=== PATIENT | female | born 1995 | race Caucasian/White ===

== ENCOUNTER 2020-01-05 17:08 | Emergency (ER) | payer OTHER, SELFPAY ==
--- NOTE | ~2020-01-05 | CT_ITS ---
EXAMINATION: CT abdomen pelvis w con DATE: 01/05/2020 18:29 INDICATION: Epigastric abdominal pain. TECHNIQUE: Computed tomography (CT) of the abdomen and pelvis was performed with 100 mL Omnipaque-350 intravenous contrast. Automated exposure control and iterative reconstruction technique were employe d. The dose-length product was 935.83 mGy-cm. COMPARISON: None FINDINGS: Lung bases are clear. Heart size is normal. No pericardial or pleural effusion. Small sliding-type hi atal hernia. Postoperative change of prior gastric bypass procedure with antecolic Sandi limb. Focal h epatic steatosis at the ligamentum teres. Gallbladder, spleen, pancreas, bilateral adrenal glands and kidneys are normal. Appendix is normal. No abnormal bowel wall thickening or obstruction. 1.7 cm per ipherally enhancing corpus luteum cyst at the left ovary. Bladder, retroverted uterus and right ovary are unremarkable. Minimal likely physiologic free fluid in the cul-de-sac. No pathologically enlarge d abdominal or pelvic lymphadenopathy. Mild thoracolumbar spondylosis. IMPRESSION: 1. No acute intra-abdominal/pelvic process. Reviewed, dictated and finalized at location A.
[2020-01-05 17:14] VITALS: BP 148/89; PULSE 74; RESP 18; TEMP 36.7; O2SAT 100
[2020-01-05 17:40] LABS: Basophils Absolute Auto 0.1 K/mm3 (0.0-0.1); Basophils Percent Auto 0.5 % (0.2-1.2); Eosinophils Absolute Auto 0.1 K/mm3 (0-0.3); Eosinophils Percent Auto 0.8 % (0-4.4); Hematocrit 33.9 % (37.0-47.0); Hemoglobin 10.8 g/dL (12.0-15.0); Immature Granulocyte Absolute 0.04 K/mm3 (0.00-0.031); Immature Granulocyte Percent A 0.4 % (0-0.5); Lymphocytes Absolute Auto 2.16 K/mm3 (0.9-3.2); Lymphocytes Percent Auto 19.3 % (18.3-44.2); Mean Corpuscular HGB Conc 31.9 g/dl (32-36); Mean Corpuscular Volume 81.5 fl (80-100); Mean Platelet Volume 9.9 fl (7.4-10.4); Monocytes Absolute Auto 0.9 K/mm3 (0.1-0.6); Monocytes Percent Auto 8.2 % (2.6-8.5); Neutrophils Absolute Auto 7.9 K/mm3 (1.3-6.7); Neutrophils Percent Auto 70.8 % (45.5-73.1); Platelet Count Result 306 k/mm3 (150-375); Red Blood Count 4.16 M/mm3 (4.2-5.4); Red Cell Distribution Width 15.6 % (11.5-14.5); White Blood Count 11.2 K/mm3 (4.5-10.0)
[2020-01-05] MEDS: ONDANSETRON INJ 4 MG/2 ML VIAL IV PUSH (17:40)
[2020-01-05] MEDS: SODIUM CHLORIDE 0.9% IV 1,000 ML 999 ML IV CONT (17:40)
[2020-01-05] MEDS: FAMOTIDINE 20 MG/2 ML VIAL IV PUSH (17:42)
[2020-01-05 17:44] LABS: Add Urine Microscopic? YES; Appearance Urine Clear (Clear); Bacteria Urine Trace /hpf; Bilirubin Urine Negative (Negative); Blood Urine Negative (Negative); Color Urine Yellow (Yellow); Glucose Urine UA Negative (Negative); Ketones Urine Negative (Negative); Leukocyte Esterase Ur Negative LEU/UL (Negative); Mucus Urine Moderate /lpf; Nitrate Urine Negative (Negative); Protein Urine Negative (Negative); RBC Urine 0-2 /hpf (0-2); Specific Grav Ur 1.027 (1.001-1.035); Squamous Epithelial Cell Urine Moderate /hpf (Few); WBC Urine 0-3 /hpf
[2020-01-05 17:52] LABS: Alanine Aminotransferase 12 U/L (4-35); Albumin Level 4.3 g/dL (3.5-5.1); Alkaline Phosphatase 112 U/L (38-126); Aspartate Amino Transferase 17 U/L (14-36); Bilirubin,Total 0.3 mg/dL (0.2-1.3); Blood Urea Nitrogen 7 mg/dL (7-17); Calcium 8.8 mg/dL (8.4-10.2); Carbon Dioxide 21 mmol/L (22-30); Chloride 109 mmol/L (98-107); Estimated CRCL calculation 131 ml/min; Estimated Glomerular Filt Rate > 60; Glucose 101 mg/dL (65-105); Lipase 78 U/L (23-300); Potassium 3.2 mmol/L (3.4-5.0); Sodium 139 mmol/L (137-145)
[2020-01-05 18:10] VITALS: TEMP 36.7
--- NOTE | 2020-01-05 18:17 | ED.ABDPAIN ---
HPI - Abdominal Pain General Chief Complaint: Abdominal Pain <BRITNI Briggs Last Filed: 01/05/20 19:32> Stated Complaint: My gallbladder <BRITNI Briggs Last Filed: 01/05/20 19:32> Time Seen by Provider: 01/05/20 17:13 <BRITNI Briggs Last Filed: 01/05/20 19:32> Source: patient <BRITNI Briggs Last Filed: 01/05/20 19:32> Mode of arrival: ambulatory <BRITNI Briggs Last Filed: 01/05/20 19:32> Limitations: no limitations <BRITNI Briggs Last Filed: 01/05/20 19:32> History of Present Illness HPI narrative: Patient is a 24-year-old female who presents to emergency department for evaluation of right upper quadrant flank abdominal pain that is been present for the last several days worse with eating denies any similar occurrence in the past has taken antacids with no improvement. Patient denies similar occurrence is noted presents per private vehicle denies sick contacts or URI symptoms patient notes today multiple episodes of emesis associated with the discomfort and pain <BRITNI Briggs Last Filed: 01/05/20 19:32> Related Data Home Medications: Home Medications Medication Instructions Recorded Confirmed aripiprazole 5 mg PO HS 01/05/20 fluoxetine 20 mg PO DAILY 01/05/20 levetiracetam [Keppra] 1,500 mg PO BID 01/05/20 oxcarbazepine 300 mg PO BID 01/05/20 topiramate 100 mg PO BID 01/05/20 trazodone 50 mg PO PRN PRN 01/05/20 <BRITNI Briggs Last Filed: 01/05/20 19:32> Allergies/Adverse Reactions: Allergies Allergy/AdvReac Type Severity Reaction Status Date / Time azithromycin Allergy Severe swelling Verified 01/05/20 17:18 codeine Allergy Severe swelling Verified 01/05/20 17:18 fexofenadine Allergy Intermediate hives Verified 01/05/20 17:18 adhesive tape Allergy Itching Verified 01/05/20 17:29 bupropion Allergy Hives Verified 01/05/20 17:29 clindamycin Allergy Hives Verified 01/05/20 17:29 erythromycin base Allergy Anaphylaxis Verified 01/05/20 17:29 hydrocodone Allergy Hives Verified 01/05/20 17:29 lithium Allergy Hives Verified 01/05/20 17:29 oxycodone [From Percocet] Allergy Hives Verified 01/05/20 17:29 <Billy Billy PA-C - Last Filed: 01/05/20 19:32> Review of Systems Review of Systems: All systems reviewed & are unremarkable except as noted in HPI and below <BRITNI Briggs Last Filed: 01/05/20 19:32> Course Course Emergency Course: Patient aware of case findings treatment plan and diagnosis <BRITNI Briggs Last Filed: 01/05/20 19:32> Vital Signs Vital signs: Vital Signs Temperature 36.7 C 01/05/20 17:14 Pulse Rate 74 01/05/20 17:14 Respiratory Rate 18 01/05/20 17:14 Blood Pressure 148/89 H 01/05/20 17:14 Pulse Oximetry 100 01/05/20 17:14 Temperature 36.6 C 01/05/20 19:39 Pulse Rate 67 01/05/20 19:39 Respiratory Rate 19 01/05/20 19:39 Blood Pressure 147/85 H 01/05/20 19:39 Pulse Oximetry 100 01/05/20 19:39 <Billy Billy PA-C - Last Filed: 01/05/20 19:32> Vital Signs Temperature 36.7 C 01/05/20 17:14 Pulse Rate 74 01/05/20 17:14 Respiratory Rate 18 01/05/20 17:14 Blood Pressure 148/89 H 01/05/20 17:14 Pulse Oximetry 100 01/05/20 17:14 Temperature 36.6 C 01/05/20 19:39 Pulse Rate 67 01/05/20 19:39 Respiratory Rate 19 01/05/20 19:39 Blood Pressure 147/85 H 01/05/20 19:39 Pulse Oximetry 100 01/05/20 19:39 <Fidelina Kellogg MD - Last Filed: 01/07/20 07:33> MDM - Abdominal Pain MDM Narrative Medical decision making narrative: Patient with abdominal pain of uncertain etiology will be discharged home put on low-fat diet given a PPI advised to follow with primary care and gastroenterology for further evaluation patient agrees with this plan is aware of the case findings treatment plan and diagnosis no high risk changes in the blood work o
[2020-01-05 18:43] VITALS: BP 149/92; PULSE 55; RESP 17; O2SAT 99
[2020-01-05 19:27] VITALS: BP 145/77; PULSE 60; RESP 19; TEMP 37.2; O2SAT 100
[2020-01-05 19:39] VITALS: BP 147/85; PULSE 67; RESP 19; TEMP 36.6; O2SAT 100
== END 2020-01-05 19:41 | disposition home or self-care (01) ==
PROVIDERS: Emergency Medicine Emergency Medical Services; Emergency Provider Emergency Medicine; PCP Family Medicine
DX: R10.11 Right upper quadrant pain (principal)
CPT/HCPCS: 36415; 74177; 80053; 81001; 81025; 83690; 85025; 96361; 96365; 96375; 99284; J0131; J2405; J7030; Q9967

== ENCOUNTER 2020-01-09 21:23 | Inpatient (IN) | payer OTHER, SELFPAY ==
--- NOTE | ~2020-01-09 | XR_ITS ---
XR abdomen NG/feed tube insert INDICATION: Evaluate NG tube position. TECHNIQUE: Limited KUB perform for evaluating NG tube . COMPARISON: 01/15/2020 FINDINGS: NG tube tip in the stomach. Visualized bowel gas pattern is unremarkable. IMPRESSION: 1: NG tube tip in the stomach. Reviewed, dictated and finalized at location A.
--- NOTE | ~2020-01-09 | US_ITS ---
EXAMINATION: US abdomen limited DATE: 01/10/2020 08:46 INDICATION: Right upper quadrant abdominal pain. TECHNIQUE: Multiple grayscale and Doppler ultrasound images of the abdomen were obtained. COMPARISON: CT abdomen and pelvis 01/05/2020 FINDINGS: The visualized portions of the head and body of the pancreas are normal. The liver is eder l without focal lesion. There is antegrade flow in main portal vein. The gallbladder is normal in siz e. No gallstones or gallbladder wall thickening. There was no sonographic De La Garza sign. The common elgin t is normal and measures 4 mm. IMPRESSION: 1. Normal right upper quadrant ultrasound. Reviewed, dictated and finalized at location A.
--- NOTE | ~2020-01-09 | CT_ITS ---
EXAMINATION: CT BRAIN W/O DATE: 01/13/2020 04:08 INDICATION: Acute prolonged seizure TECHNIQUE: Computed tomography (CT) of the head was performed without intravenous contrast. The dose- length product was 605.33 mGy-cm. COMPARISON: No prior studies for comparison. FINDINGS: Normal brain parenchymal volume for age. Normal olmos-white differentiation. No acute intrac ranial hemorrhage, infarction, mass or mass effect. No ventriculomegaly or midline shift. Midline sagittal images demonstrate a normal corpus callosum, c raniovertebral junction and sella turcica. Basilar cisterns are patent. Paranasal sinuses and mastoids are pneumatized. No depressed skull fractures. IMPRESSION: 1. No acute intracranial abnormality. Reviewed, dictated and finalized at location A.
--- NOTE | ~2020-01-09 | XR_ITS ---
EXAMINATION: XR chest 1V portable DATE: 01/13/2020 03:55 INDICATION: Acute seizure. Assess for aspiration. TECHNIQUE: frontal view of the chest was obtained. COMPARISON: None FINDINGS: Decreased right lung volume with mild elevation of the right hemidiaphragm. Patchy and linear opaciti es in the right lung. Left lung is clear. No pulmonary edema, pleural effusion or pneumothorax. The c ardiomediastinal silhouette is normal. Visualized bones and soft tissues are unremarkable. IMPRESSION: 1. Scattered linear and patchy opacities in the left lung with decreased left lung volume with differ ential including atelectasis and pneumonia, aspiration or some combination thereof. Reviewed, dictated and finalized at location A. IMPRESSION: 1. Scattered linear and patchy opacities in the left lung with decreased left l maritza volume with differential including atelectasis and pneumonia, aspiration or some combination thereof.
--- NOTE | ~2020-01-09 | XR_ITS ---
EXAMINATION: XR abdomen NG/feed tube insert DATE: 01/15/2020 08:43 INDICATION: Nasogastric tube placement TECHNIQUE: A supine view of the abdomen and lower chest was obtained for evaluation of feeding tube placement. COMPARISON: CT abdomen and pelvis dated 01/11/2020 FINDINGS: Endotracheal tube tip 1.9 cm above the ernesto. Nasogastric tube tip in the proximal stomach with prox imal side-port in the distal esophagus. Gas at the splenic flexure the colon. No dilated loops of bow el in the visualized abdomen to suggest obstruction. Mild left basilar opacities. Heart size is eder l. IMPRESSION: 1. Nasogastric tube tip in the proximal stomach. Consider advancement by 6-[address] the proximal side-port below the level of the gastroesophageal junction. Reviewed, dictated and finalized at location A. IMPRESSION: 1. Nasogastric tube tip in the proximal stomach. Consider advancement by 6-[address] the proximal side-port below the level of the gastroesophageal juncti on.
--- NOTE | ~2020-01-09 | NM_ITS ---
NM hepatobiliary w pharm DATE: 01/11/2020 09:53 INDICATION: Right upper quadrant abdominal pain, leukocytosis TECHNIQUE: Serial images of the abdomen after intravenous injection of 5.22 mCi 99m technetium [place] ec. 30 minute gallbladder ejection fraction calculation COMPARISON: 01/05/2020 CT abdomen pelvis 01/10/2020 limited abdominal ultrasound examination FINDINGS: There is normal hepatic extraction of the radiopharmaceutical. Kindly activity is noted in the gallbladder and common bile duct. The 30 minute gallbladder ejection fraction determinations afte r intravenous injection of 2.1 mcg of Kinevac is 65%. IMPRESSION: Normal examination 30 minute gallbladder ejection fraction of 65% Reviewed, dictated and finalized at Location A. Reviewed, dictated and finalized at location A.
--- NOTE | ~2020-01-09 | CT_ITS ---
EXAMINATION: CT abdomen pelvis w con EXAM DATE: 01/11/2020 21:05 INDICATION: Right upper quadrant pain. TECHNIQUE: Spiral CT of the abdomen and pelvis was performed following intravenous injection of 100 m L Omnipaque 350. Axial, coronal and sagittal images were reviewed. The dose-length product (DLP) fo r this examination was 1565.27 mGy-cm. The exposure was tailored according to patient size (auto mA exposure control), and iterative reconstruction (ASIR) was used as additional dose reduction techniqu e. Comparison is made to prior examination from 01/05/2020. FINDINGS: Interval development of severe periportal edema, pericholecystic fluid and small amount of perihepatic fluid. Less amount of edema adjacent to the pancreatic head and in the retroperitoneum. T he gallbladder is only mildly distended and there is no calcified cholelithiasis. There is no biliary or pancreatic duct dilation. No portal venous thrombosis or evidence of peptic ulcer disease. Give n the normal HIDA scan and right upper quadrant sonogram from yesterday, consider acute hepatitis, ch olangitis or pancreatitis. The liver, spleen, adrenal glands and pancreas are otherwise unremarkable. Portal and splenic veins are patent. Kidneys enhance symmetrically. There is no hydronephrosis. The uterus is unremarkable . Small to moderate amount of free pelvic fluid The bladder is unremarkable. There is no retroperit avila or pelvic lymphadenopathy. The appendix is normal. There are surgical changes from intact gastric bypass surgery. There is exp ected amount of colonic stool. No free intraperitoneal gas. The heart is normal in size. There a re no pericardial or pleural effusions. The lung bases are unremarkable. There are no osteoblastic or osteolytic lesions identified. IMPRESSION: Interval development of severe periportal edema, some pericholecystic and perihepatic flu id. Consider acute hepatitis, cholangitis or pancreatitis. Reviewed, dictated and finalized at location G. IMPRESSION: Interval development of severe periportal edema, some pericholecyst ic and perihepatic fluid. Consider acute hepatitis, cholangitis or pancreatitis .
--- NOTE | ~2020-01-09 | XR_ITS ---
EXAMINATION: XR chest ET placement DATE: 01/15/2020 06:19 INDICATION: Endotracheal tube placement TECHNIQUE: frontal view of the chest was obtained. COMPARISON: Chest radiograph dated 01/13/2020 FINDINGS: Endotracheal tube tip 3.3 cm above the ernesto. Nasogastric tube tip in the body of the stomach with p roximal side-port in the distal esophagus. Patchy and linear airspace opacities in the bilateral mid and lower lung zones which is new on the le ft. No pleural effusion or pneumothorax. The cardiomediastinal silhouette is normal. IMPRESSION: 1. Endotracheal tube in good position. Nasogastric tube tip in the stomach but could consider advance ment by [address] the proximal side-port below the gastroesophageal junction. 2. Airspace disease in the bilateral mid and lower lung zones, increased on the left, with differenti al including atelectasis, pneumonia, aspiration or some combination thereof. Reviewed, dictated and finalized at location A. IMPRESSION: 1. Endotracheal tube in good position. Nasogastric tube tip in the stomach but could consider advancement by [address] the proximal side-port below the ga stroesophageal junction. 2. Airspace disease in the bilateral mid and lower lung zones, increased on the left, with differential including atelectasis, pneumonia, aspiration or some c ombination thereof.
[2020-01-09 21:25] VITALS: BP 155/93; PULSE 89; RESP 16; TEMP 36.8; O2SAT 100
--- NOTE | 2020-01-09 21:36 | ED.ABDPAIN ---
HPI - Abdominal Pain General Chief Complaint: Abdominal Pain Stated Complaint: vomiting, spasms in face x 1 week Time Seen by Provider: 01/09/20 21:31 Source: RN notes reviewed History of Present Illness HPI narrative: Patient presents emergency department from home for abdominal pain. Patient states she is been having right upper quadrant dull pain for the past week. Patient was seen here and evaluated had a CT scan and lab work done at that time was referred to GI. Patient states she was seen by Dr. Browning for GI today and is scheduled for an outpatient ultrasound and endoscopy. Patient states his symptoms of been progressively worsened and thus we brought her to the emergency department tonight she states she is had recurrent nausea vomiting is been unable to keep down her seizure medication. She denies having any seizures she denies any fevers or chills chest pain shortness of breath diarrhea or any other symptoms. Patient states she is taking Zofran and Tylenol at home for the pain with minimal relief Related Data Home Medications Medication Instructions Recorded Confirmed aripiprazole 5 mg PO HS 01/05/20 fluoxetine 20 mg PO DAILY 01/05/20 levetiracetam [Keppra] 1,500 mg PO BID 01/05/20 oxcarbazepine 300 mg PO BID 01/05/20 topiramate 100 mg PO BID 01/05/20 trazodone 50 mg PO PRN PRN 01/05/20 Allergies Allergy/AdvReac Type Severity Reaction Status Date / Time azithromycin Allergy Severe swelling Verified 01/09/20 21:36 codeine Allergy Severe swelling Verified 01/09/20 21:36 fexofenadine Allergy Intermediate hives Verified 01/09/20 21:36 adhesive tape Allergy Itching Verified 01/09/20 21:36 bupropion Allergy Hives Verified 01/09/20 21:36 clindamycin Allergy Hives Verified 01/09/20 21:36 erythromycin base Allergy Anaphylaxis Verified 01/09/20 21:36 hydrocodone Allergy Hives Verified 01/09/20 21:36 lithium Allergy Hives Verified 01/09/20 21:36 oxycodone [From Percocet] Allergy Hives Verified 01/09/20 21:36 Review of Systems Review of Systems: Narrative: Gen.: Denies fevers or chills ENT: Denies congestion Respiratory: Denies shortness of breath or cough CV: Denies chest pain or palpitations GI: See HPI denies burning, urgency, frequency or hematuria Musculoskeletal: Denies back pain or muscle pain Neuro: Denies numbness, tingling, weakness or focal weakness Skin: Denies rash Except as documented, all other systems reviewed and negative [facility] Past Medical History Medical History (Updated 01/10/20 @ 00:58 by Hernesto Arroyo DO) Patient denies significant medical history Social History Social History (Updated 01/09/20 @ 21:37 by Hernesto Arroyo DO) Smoking status: Never smoker Gender identity (if verbalized by the patient): Female Exam Narrative: Exam Narrative: APPEARANCE: No acute distress, nontoxic, resting in bed HEENT: Normocephalic, atraumatic, OMM RESPIRATORY: No respiratory distress, clear to auscultation bilaterally with no rhonchi wheezing or rales CARDIOVASCULAR: RRR s murmur ABDOMINAL: Obese, soft, nondistended, tender palpation epigastric, right upper quadrant no tenderness left lower quadrant, left lower quadrant right lower quadrant no rebound or guarding MUSCULOSKELETAl: Moves all extremities. No clubbing, cyanosis or edema. NEURO: Awake and alert. Following commands, speech normal, no focal deficits SKIN:: Warm, dry. Normal Color PSYCHIATRIC: Normal affect/mood Course Course Emergency Course: Patient continues to have some abdominal discomfort and nausea will admit at this time. She states she is normally on Keppra 1500 mg twice daily has been unable to keep down for the last several days last attempt was this morning will give IV Discussed with Dr. Jimenez presentation work-up agrees with admission. Agrees plan for ultrasound in a.m. Discussed with patient and family results of workup and diagnosis. Discussed need for admission. Patient and family understand and a
[2020-01-09] MEDS: KETOROLAC 30 MG/ML VIAL (*BKC) IV PUSH (21:41)
[2020-01-09] MEDS: PROMETHAZINE HCL 25 MG/ML AMPUL 12.5 MG IV PUSH (21:41)
[2020-01-09] MEDS: SODIUM CHLORIDE 0.9% IV 1,000 ML 999 ML IV CONT (21:41)
[2020-01-09 21:46] LABS: Basophils Percent Auto 0.3 % (0.2-1.2); Eosinophils Absolute Auto 0.1 K/mm3 (0-0.3); Hematocrit 33.3 % (37.0-47.0); Hemoglobin 10.4 g/dL (12.0-15.0); Immature Granulocyte Absolute 0.06 K/mm3 (0.00-0.031); Immature Granulocyte Percent A 0.5 % (0-0.5); Lymphocytes Absolute Auto 2.14 K/mm3 (0.9-3.2); Lymphocytes Percent Auto 16.5 % (18.3-44.2); Mean Corpuscular HGB Conc 31.2 g/dl (32-36); Mean Corpuscular Hemoglobin 25.7 pg (26-34); Mean Corpuscular Volume 82.4 fl (80-100); Mean Platelet Volume 10.7 fl (7.4-10.4); Monocytes Absolute Auto 1.1 K/mm3 (0.1-0.6); Monocytes Percent Auto 8.8 % (2.6-8.5); Neutrophils Absolute Auto 9.4 K/mm3 (1.3-6.7); Neutrophils Percent Auto 72.9 % (45.5-73.1); Platelet Count Result 333 k/mm3 (150-375); Red Blood Count 4.04 M/mm3 (4.2-5.4); Red Cell Distribution Width 15.5 % (11.5-14.5)
[2020-01-09 21:49] LABS: Add Urine Microscopic? NO; Appearance Urine Clear (Clear); Bilirubin Urine Negative (Negative); Blood Urine Negative (Negative); Color Urine Straw (Yellow); Glucose Urine UA Negative (Negative); Ketones Urine Negative (Negative); Leukocyte Esterase Ur Negative LEU/UL (Negative); Nitrate Urine Negative (Negative); Protein Urine Negative (Negative); Specific Grav Ur 1.015 (1.001-1.035); Urobilinogen Urine Negative mg/dL (<2.0)
[2020-01-09 22:01] LABS: Alanine Aminotransferase 13 U/L (4-35); Albumin Level 4.1 g/dL (3.5-5.1); Alkaline Phosphatase 116 U/L (38-126); Aspartate Amino Transferase 19 U/L (14-36); Bilirubin,Total 0.4 mg/dL (0.2-1.3); Blood Urea Nitrogen 6 mg/dL (7-17); Calcium 8.3 mg/dL (8.4-10.2); Carbon Dioxide 24 mmol/L (22-30); Chloride 107 mmol/L (98-107); Estimated Glomerular Filt Rate > 60; Glucose 92 mg/dL (65-105); Lipase 87 U/L (23-300); Potassium 3.4 mmol/L (3.4-5.0); Sodium 139 mmol/L (137-145)
[2020-01-09] MEDS: MORPHINE SULFATE 4 MG/ML INJ IV PUSH (23:04)
[2020-01-09 23:09] VITALS: BP 129/71; PULSE 67; RESP 18; O2SAT 100
[2020-01-10] VITALS (10 sets, daily range): BP systolic 84–159; BP diastolic 52–92; PULSE 45–68; RESP 13–20; TEMP 36.6–36.8; O2SAT 98–100; BMI 42.5
[2020-01-10] MEDS: FAMOTIDINE 20 MG/2 ML VIAL IV PUSH (00:30)
[2020-01-10] MEDS: levETIRAcetam 1500MG/NACL100ML 1,500 MG/100 ML BAG 400 MG IVPB (00:45)
--- NOTE | 2020-01-10 01:21 | ADMGEN ---
This patient, Preethi Napier, was admitted to 3 [facility] Surg Room 319-01. Patient/family oriented to hospital policies and general routines including ID bracelet, bed and alarms, visiting hours, pain management, procedures, bathroom and other care routines, personal items, smoking policy, room service/diet, and visiting hours. Valuables list has been completed. Information on how to activate the Rapid Response Team has been discussed. Patient/Family are encouraged to report perceived risks to care and to ask questions if they do not understand what they are told or what they should do.
--- NOTE | 2020-01-10 01:57 | PM.IMHP ---
H&P: HPI History of Present Illness Chief complaint: Right upper quadrant pain w/ nausea and vomiting+ Narrative: This is a 24 year old morbidly obese female with known Seizure disorder who presented to the hospital with worsening epigastric and RUQ abdominal pain. Associated nausea, vomiting, and fever. She describes her abdominal pain as severe and radiating towards her back and her right upper shoulder+ The patient was evaluated for her abdominal pain a few days ago and had a CT abd/pelvis done at that time which was unremarkable. The patient was just seen by Dr. Browning yesterday and was going to have an outpatient endoscopy and ultrasound done. Tonight she decided to come to the hospital as her abdominal pain was worsening. She denies any chest pain, shortness of breath, coughing, dysuria, hematuria, focal neurological symptoms, diarrhea, lower extremity swelling or pain. Routine labs were obtained in the ER and were not much different from her most recent labs obtained a few days ago. The patient reports that she had a mild seizure yesterday. No other complaints today. Review of Systems Review of Systems: All systems reviewed & are unremarkable except as noted in HPI and below PMFSH Past Medical History Medical History (Updated 01/10/20 @ 06:15 by Vaughn Jimenez MD) Anxiety Depression Patient denies significant medical history Seizure disorder Surgical History Surgical History (Updated 01/10/20 @ 02:45 by Vaughn Jimenez MD) History of sleeve gastrectomy Family History Family History (Updated 01/10/20 @ 02:45 by Vaughn Jimenez MD) Other Diabetes mellitus Hypertension Social History Social History Smoking status: Never smoker Additional smoking assessment comments: patient vapes Alcohol intake: current Drinks per week: 1 Substance use: never Gender identity (if verbalized by the patient): Female Spiritual care concerns: No Meds Home Medications and Allergies Home Medications Medication Instructions Recorded Confirmed Type aripiprazole 5 mg PO HS 01/05/20 01/10/20 History fluoxetine 20 mg PO DAILY 01/05/20 01/10/20 History levetiracetam [Keppra] 1,500 mg PO BID 01/05/20 01/10/20 History omeprazole 40 mg PO DAILY #7 cap 01/05/20 01/10/20 Rx ondansetron 4 mg PO QID #7 tablet 01/05/20 01/10/20 Rx oxcarbazepine 300 mg PO BID 01/05/20 01/10/20 History topiramate 100 mg PO BID 01/05/20 01/10/20 History trazodone 50 mg PO PRN PRN 01/05/20 01/10/20 History Allergies Allergy/AdvReac Type Severity Reaction Status Date / Time azithromycin Allergy Severe swelling Verified 01/09/20 21:36 codeine Allergy Severe swelling Verified 01/09/20 21:36 fexofenadine Allergy Intermediate hives Verified 01/09/20 21:36 adhesive tape Allergy Itching Verified 01/09/20 21:36 bupropion Allergy Hives Verified 01/09/20 21:36 clindamycin Allergy Hives Verified 01/09/20 21:36 erythromycin base Allergy Anaphylaxis Verified 01/09/20 21:36 hydrocodone Allergy Hives Verified 01/09/20 21:36 lithium Allergy Hives Verified 01/09/20 21:36 oxycodone [From Percocet] Allergy Hives Verified 01/09/20 21:36 Vital Signs Vital Signs - 24 hr 01/09/20 21:25 01/09/20 23:09 01/10/20 01:04 Temperature 36.8 C 36.6 C Pulse Rate 89 67 59 L Respiratory Rate 16 18 16 Blood Pressure 155/93 H 129/71 135/68 Pulse Oximetry 100 100 100 01/10/20 01:05 01/10/20 01:25 Temperature 36.6 C 36.8 C Pulse Rate 65 61 Respiratory Rate 19 20 Blood Pressure 133/67 116/68 Pulse Oximetry 100 99 Exam Const: General: cooperative, alert, awake, in distress mild and uncomfortable Nutritional Appearance: obese morbidly obese Orientation/consciousness: patient oriented x3 HENMT: Head: normal to inspection General nose exam: Normal external nose present Face and sinus: normal facial exam Mouth: Yes Normal oral and palatal mucosa present and Yes oropharynx normal Eyes: Pupils:
[2020-01-10] MEDS: ONDANSETRON INJ 4 MG/2 ML VIAL IV PUSH ×3 (02:42→18:30)
[2020-01-10] MEDS: SODIUM CHLORIDE 0.9% IV 1,000 ML 125 ML IV CONT ×3 (02:42→21:14)
[2020-01-10] MEDS: MORPHINE SULFATE 4 MG/ML INJ IV PUSH ×2 (02:43→11:39)
[2020-01-10] MEDS: PANTOPRAZOLE SODIUM IV 40 MG VIAL IV PUSH (09:14)
[2020-01-10] MEDS: levETIRAcetam 1500MG/NACL100ML 1,500 MG/100 ML BAG 250 MG IVPB ×2 (09:14→21:15)
--- NOTE | 2020-01-10 14:19 | PC.NURSE ---
Patient to GI lab per stretcher.
--- NOTE | 2020-01-10 14:29 | WPDGICN ---
Assessment and Plan Assessment and plan (1) Intractable right upper quadrant abdominal pain: Code(s): R10.11 - Right upper quadrant pain Status: Acute Assessment and Plan: Etiology of her pain remains unclear. Right upper quadrant ultrasound last evening was unremarkable. Liver function tests are normal. Plan is to pursue further evaluation with EGD. Consider trial of proton pump inhibitor. Further recommendations after endoscopy. Consider HIDA scan if necessary. (2) Nausea & vomiting: Code(s): R11.2 - Nausea with vomiting, unspecified Status: Acute (3) Seizure disorder: Code(s): G40.909 - Epilepsy, unspecified, not intractable, without status epilepticus Status: Chronic (4) Obesity (BMI 30.0-34.9): Code(s): E66.9 - Obesity, unspecified Status: Acute GI Consult Note Consult date/time: 01/10/20 14:29 HPI: Preethi Napier is a 24 year old female seen in evaluation at the request of the emergency room and hospitalist service. Patient is morbidly obese and has underlying history of seizure disorder patient has had ongoing epigastric right upper quadrant discomfort. Associated with nausea vomiting. She was seen in my office yesterday. At that time it was planned to have an elective right upper quadrant ultrasound in EGD. However at home she has been unable to keep her medications down and had a small seizure. For this reason presented to the emergency room and was admitted for further evaluation. Review of Systems Review of Systems: All systems reviewed & are unremarkable except as noted in HPI and below PMFSH Past Medical History Medical History Anxiety Depression Patient denies significant medical history Seizure disorder Surgical History Surgical History History of sleeve gastrectomy Family History Family History Other Diabetes mellitus Hypertension Social History Social History Smoking status: Never smoker Additional smoking assessment comments: patient vapes Alcohol intake: current Drinks per week: 1 Substance use: never Gender identity (if verbalized by the patient): Female Spiritual care concerns: No Meds Home Medications and Allergies Home Medications Medication Instructions Recorded Confirmed Type aripiprazole 5 mg PO HS 01/05/20 01/10/20 History fluoxetine 20 mg PO DAILY 01/05/20 01/10/20 History levetiracetam [Keppra] 1,500 mg PO BID 01/05/20 01/10/20 History omeprazole 40 mg PO DAILY #7 cap 01/05/20 01/10/20 Rx ondansetron 4 mg PO QID #7 tablet 01/05/20 01/10/20 Rx oxcarbazepine 300 mg PO BID 01/05/20 01/10/20 History topiramate 100 mg PO BID 01/05/20 01/10/20 History trazodone 50 mg PO PRN PRN 01/05/20 01/10/20 History Allergies Allergy/AdvReac Type Severity Reaction Status Date / Time azithromycin Allergy Severe swelling Verified 01/09/20 21:36 codeine Allergy Severe swelling Verified 01/09/20 21:36 fexofenadine Allergy Intermediate hives Verified 01/09/20 21:36 adhesive tape Allergy Itching Verified 01/09/20 21:36 bupropion Allergy Hives Verified 01/09/20 21:36 clindamycin Allergy Hives Verified 01/09/20 21:36 erythromycin base Allergy Anaphylaxis Verified 01/09/20 21:36 hydrocodone Allergy Hives Verified 01/09/20 21:36 lithium Allergy Hives Verified 01/09/20 21:36 oxycodone [From Percocet] Allergy Hives Verified 01/09/20 21:36 Vital Signs Vital Signs - 24 hr 01/09/20 21:25 01/09/20 23:09 01/10/20 01:04 Temperature 36.8 C 36.6 C Pulse Rate 89 67 59 L Respiratory Rate 16 18 16 Blood Pressure 155/93 H 129/71 135/68 Pulse Oximetry 100 100 100 01/10/20 01:05 01/10/20 01:25 01/10/20 06:00 Temperature 36.6 C 36.8 C 36.6 C Pulse Rate 65 61 57 L Respiratory Rate 19 20 20 Blood Pr
[2020-01-10] MEDS: LACTATED RINGERS 1,000 ML 150 ML IV CONT (14:34)
--- NOTE | 2020-01-10 14:47 | WPDANESEPPF ---
Anes - Initial Pre Proc Eval Procedure: Operation Date: 01/10/20 15:00 Proposed Procedures p Esophagogastroduodenoscopy - Jorge Browning MD Date/Time: 01/10/20 14:47 Surgeon: Vaughn Jimenez MD Pre Op Diagnosis: Right upper quadrant pain w/ nausea and vomiting+ Patient Data Age: 24 Gender: F Height: 5 ft 5 in Weight: 115.9 kg Last Vital Signs Temp 36.8 C 01/10/20 14:36 Pulse 50 L 01/10/20 14:36 Resp 18 01/10/20 14:36 BP 129/67 01/10/20 14:36 Pulse Ox 98 01/10/20 14:36 Allergies Allergy/AdvReac Type Severity Reaction Status Date / Time azithromycin Allergy Severe swelling Verified 01/09/20 21:36 codeine Allergy Severe swelling Verified 01/09/20 21:36 fexofenadine Allergy Intermediate hives Verified 01/09/20 21:36 adhesive tape Allergy Itching Verified 01/09/20 21:36 bupropion Allergy Hives Verified 01/09/20 21:36 clindamycin Allergy Hives Verified 01/09/20 21:36 erythromycin base Allergy Anaphylaxis Verified 01/09/20 21:36 hydrocodone Allergy Hives Verified 01/09/20 21:36 lithium Allergy Hives Verified 01/09/20 21:36 oxycodone [From Percocet] Allergy Hives Verified 01/09/20 21:36 Home Medications Medication Instructions Recorded Confirmed Type aripiprazole 5 mg PO HS 01/05/20 01/10/20 History fluoxetine 20 mg PO DAILY 01/05/20 01/10/20 History levetiracetam [Keppra] 1,500 mg PO BID 01/05/20 01/10/20 History omeprazole 40 mg PO DAILY #7 cap 01/05/20 01/10/20 Rx ondansetron 4 mg PO QID #7 tablet 01/05/20 01/10/20 Rx oxcarbazepine 300 mg PO BID 01/05/20 01/10/20 History topiramate 100 mg PO BID 01/05/20 01/10/20 History trazodone 50 mg PO PRN PRN 01/05/20 01/10/20 History Laboratory Tests 01/09/20 01/09/20 01/09/20 21:41 21:41 21:41 WBC 13.0 K/mm3 H K/mm3 (4.5-10.0) RBC 4.04 M/mm3 L M/mm3 (4.2-5.4) Hgb 10.4 g/dL L g/dL (12.0-15.0) Hct 33.3 % L % (37.0-47.0) MCV 82.4 fl fl (80-100) MCH 25.7 pg L pg (26-34) MCHC 31.2 g/dl L g/dl (32-36) RDW 15.5 % H % (11.5-14.5) Plt Count 333 k/mm3 k/mm3 (150-375) MPV 10.7 fl H fl (7.4-10.4) Immature Gran % (Auto) 0.5 % % (0-0.5) Neut % (Auto) 72.9 % % (45.5-73.1) Lymph % (Auto) 16.5 % L % (18.3-44.2) [place] % (Auto) 8.8 % H % (2.6-8.5) Eos % (Auto) 1.0 % % (0-4.4) Baso % (Auto) 0.3 % % (0.2-1.2) Lymph # (Auto) 2.14 K/mm3 K/mm3 (0.9-3.2) [place] # (Auto) 1.1 K/mm3 H K/mm3 (0.1-0.6) Eos # (Auto) 0.1 K/mm3 K/mm3 (0-0.3) Baso # (Auto) 0.0 K/mm3 K/mm3 (0.0-0.1) Abs Immat Gran (auto) 0.06 K/mm3 H K/mm3 (0.00-0.031) Absolute Neuts (auto) 9.4 K/mm3 H K/mm3 (1.3-6.7) Absolute Nucleated RBC 0.0 K/mm3 K/mm3 (0.0-0.012) Nucleated RBC % 0.0 % % (0.0-0.2) Sodium 139 mmol/L mmol/L (137-145) Potassium 3.4 mmol/L mmol/L (3.4-5.0) Chloride 107 mmol/L mmol/L (98-107) Carbon Dioxide 24 mmol/L mmol/L (22-30) BUN 6 mg/dL L mg/dL (7-17) Creatinine 0.70 mg/dL mg/dL (0.7-1.0) Estim Creat Clear Calc Not Reportable Estimated GFR > 60 (59 - ) Glucose 92 mg/dL mg/dL (65-105) Calcium 8.3 mg/dL L mg/dL (8.4-10.2) Total Bilirubin 0.4 mg/dL mg/dL (0.2-1.3) AST 19 U/L U/L (14-36) ALT 13 U/L U/L (4-35) Alkaline Phosphatase 116 U/L U/L (38-126) Total Protein 7.0 g/dL g/dL (6.3-8.2) Albumin 4.1 g/dL g/dL (3.5-5.1) Lipase 87 U/L U/L (23-300) Urine Color Straw (Yellow) Urine Appearance Clear (Clear) Urine pH 6.0 (5.0-9.0) Ur Specific [place] 1.015 (1.001-1.035) Urine Protein Negative mg/dL mg/dL (Negative) Urine Glucose (UA) Negative mg/d
[2020-01-10] MEDS: BENZOCAINE (*SP) 60 ML SPRAY CAN (HURRICAINE) 1 SPRAY MUCOUS MEM (15:01)
--- NOTE | 2020-01-10 15:55 | PM.IMPN ---
Progress Note: A&P Assessment and Plan (1) Intractable right upper quadrant abdominal pain: Code(s): R10.11 - Right upper quadrant pain Status: Acute Assessment and Plan: RUQ ultrasound no gallstones or other pathology seen. Will give biliary scan EGD revealed small gastric ulcer which could be etiology of her symptoms also. B.i.d. PPI. (2) Depression: Qualifiers: Depression Type: unspecified Qualified Code(s): F32.9 - Major depressive disorder, single episode, unspecified Code(s): F32.9 - Major depressive disorder, single episode, unspecified Status: Chronic Assessment and Plan: Resume home meds when appropriate. (3) Anxiety: Code(s): F41.9 - Anxiety disorder, unspecified Status: Chronic Assessment and Plan: PRN anxioloytic medications as needed. (4) Seizure disorder: Code(s): G40.909 - Epilepsy, unspecified, not intractable, without status epilepticus Status: Chronic Assessment and Plan: Continue IV keppra. (5) Anemia: Code(s): D64.9 - Anemia, unspecified Status: Acute Assessment and Plan: Mild anemia. Will get iron studies and B12 Subjective Date/time seen: 01/10/20 15:55 Interval history: Date of visit 01/09. [age] female admitted abdominal vomiting. Had been scheduled sonogram and possible EGD. Continues to pain but no more nausea or vomiting. States urine has been darker and stools more light colored Exam Narrative: Exam Narrative: Blood pressure 104/56 pulse is 50 afebrile a Pupils equal reactive to light sclera anicteric Lungs clear CV regular rate rhythm Abdomen is soft bowel sounds present tenderness epigastric right upper quadrant on palpation without rebound Extremities without edema good distal pulses Neuro alert cooperative no focal deficits Objective Data Vital Signs Vital Signs: Vital Signs - 24 hr 01/09/20 21:25 01/09/20 23:09 01/10/20 01:04 Temperature 36.8 C 36.6 C Pulse Rate 89 67 59 L Respiratory Rate 16 18 16 Blood Pressure 155/93 H 129/71 135/68 Pulse Oximetry 100 100 100 01/10/20 01:05 01/10/20 01:25 01/10/20 06:00 Temperature 36.6 C 36.8 C 36.6 C Pulse Rate 65 61 57 L Respiratory Rate 19 20 20 Blood Pressure 133/67 116/68 110/56 L Pulse Oximetry 100 99 98 01/10/20 14:36 01/10/20 15:11 01/10/20 15:21 Temperature 36.8 C Pulse Rate 50 L 49 L 49 L Respiratory Rate 18 14 13 Blood Pressure 129/67 108/55 L 84/52 L Pulse Oximetry 98 98 99 01/10/20 15:31 Temperature Pulse Rate 45 L Respiratory Rate 15 Blood Pressure 104/56 L Pulse Oximetry 100 Intake/Output Intake/Output: Intake & Output 01/07/20 01/08/20 01/09/20 01/10/20 23:59 23:59 23:59 23:59 Intake Total 1000 1200 Output Total 0 Balance 1000 1200 Meds/Results Medications: Active Medications Generic Name Dose Route Start Last Admin Trade Name Freq PRN Reason Stop Dose Admin Acetaminophen 1,000 mg 01/10/20 15:53 Tylenol Tablet PO Q6H PRN Mild Pain (1-3) or Fever Sodium Chloride 1,000 mls @ 125 mls/hr 01/10/20 00:20 01/10/20 14:35 Normal Saline Iv IV CONT 0 mls/hr .Q8H SANA Infusion Levetiracetam 1,500 mg in 100 mls @ 400 mls/hr 01/10/20 09:00 01/10/20 09:38 Keppra Iv IVPB Infused Q12HR SANA Infusion Ondansetron HCl 4 mg 01/10/20 00:18 01/10/20 09:14 Zofran Inj IV PUSH 4 mg Q4H PRN Administration Nausea Pantoprazole Sodium 40 mg 01/10/20 21:00 Protonix PO Q12HR SANA Radiology Results: ITS Impressions Abdomen Ultrasound 01/10/20 08:47 IMPRESSION: 1. Normal right upper quadrant ultrasound. Labs Labs: Laboratory Results - last 24 hr 01/09/20 01/09/20 01/09/20 21:41 21:41 21:41 WBC 13.0 H RBC 4.04 L Hgb 10.4 L Hct 33.3 L MCV 82.4 MCH 25.7 L MCHC 31.2 L RDW 15.5 H Plt Count 333 MPV 10.7 H Immature Gran % (Auto) 0.5 Neut % (Auto)
--- NOTE | 2020-01-10 16:29 | PC.NURSE ---
Patient returned from GI lab @ 1600.
[2020-01-10] MEDS: ACETAMINOPHEN 500 MG TABLET 1000 MG PO (18:33)
[2020-01-10] MEDS: PANTOPRAZOLE 40 MG TABLET PO (21:16)
[2020-01-10] MEDS: MORPHINE SULFATE 2 MG/ML INJ IV PUSH (22:22)
[2020-01-10] MEDS: PROMETHAZINE HCL 25 MG/ML AMPUL 12.5 MG IV PUSH (22:23)
[2020-01-11] MEDS: SODIUM CHLORIDE 0.9% IV 1,000 ML 125 ML IV CONT ×2 (05:42→15:27)
[2020-01-11] MEDS: ONDANSETRON INJ 4 MG/2 ML VIAL IV PUSH ×3 (05:45→19:28)
[2020-01-11 06:00] VITALS: BP 113/49; PULSE 73; RESP 16; TEMP 36.7; O2SAT 100
[2020-01-11 06:47] LABS: Basophils Percent Auto 0.5 % (0.2-1.2); Eosinophils Absolute Auto 0.1 K/mm3 (0-0.3); Eosinophils Percent Auto 1.7 % (0-4.4); Hematocrit 27.9 % (37.0-47.0); Hemoglobin 8.6 g/dL (12.0-15.0); Immature Granulocyte Absolute 0.02 K/mm3 (0.00-0.031); Immature Granulocyte Percent A 0.3 % (0-0.5); Lymphocytes Percent Auto 28.8 % (18.3-44.2); Mean Corpuscular HGB Conc 30.8 g/dl (32-36); Mean Corpuscular Hemoglobin 26.1 pg (26-34); Mean Corpuscular Volume 84.5 fl (80-100); Mean Platelet Volume 10.8 fl (7.4-10.4); Monocytes Absolute Auto 0.5 K/mm3 (0.1-0.6); Monocytes Percent Auto 8.1 % (2.6-8.5); Neutrophils Absolute Auto 3.6 K/mm3 (1.3-6.7); Neutrophils Percent Auto 60.6 % (45.5-73.1); Platelet Count Result 232 k/mm3 (150-375); Red Cell Distribution Width 15.3 % (11.5-14.5); White Blood Count 5.9 K/mm3 (4.5-10.0)
[2020-01-11 07:00] LABS: Alanine Aminotransferase 10 U/L (4-35); Alkaline Phosphatase 75 U/L (38-126); Aspartate Amino Transferase 20 U/L (14-36); Bilirubin,Total 0.2 mg/dL (0.2-1.3); Blood Urea Nitrogen 8 mg/dL (7-17); Calcium 7.5 mg/dL (8.4-10.2); Carbon Dioxide 22 mmol/L (22-30); Chloride 113 mmol/L (98-107); Estimated CRCL calculation 155 ml/min; Estimated Glomerular Filt Rate > 60; Glucose 84 mg/dL (65-105); Potassium 3.7 mmol/L (3.4-5.0); Sodium 138 mmol/L (137-145)
[2020-01-11 07:08] LABS: Iron 22 ug/dL (37-170)
[2020-01-11 07:18] LABS: Percent Iron Saturation 7 % (20-50)
--- NOTE | 2020-01-11 08:02 | WPDANESPN ---
Anes - Prog Note Post-Op Date/Time: 01/11/20 08:02 Cardiovascular status: normal Respiratory status: normal Airway patency: baseline Mental status: baseline Post-Op hydration status: normal Vital Signs: Last Vital Signs Temp 36.7 C 01/11/20 06:00 Pulse 73 01/11/20 06:00 Resp 16 01/11/20 06:00 BP 113/49 L 01/11/20 06:00 Pulse Ox 100 01/11/20 06:00 I/O: Intake & Output 01/10/20 01/11/20 01/11/20 23:59 07:59 15:59 Intake Total 1562 1300 Output Total 800 Balance 762 1300 Laboratory Tests 01/11/20 06:24 01/11/20 06:24 01/11/20 01/11/20 01/11/20 06:24 06:24 06:24 WBC 5.9 RBC 3.30 L Hgb 8.6 L Hct 27.9 L MCV 84.5 MCH 26.1 MCHC 30.8 L RDW 15.3 H Plt Count 232 MPV 10.8 H Immature Gran % (Auto) 0.3 Neut % (Auto) 60.6 Lymph % (Auto) 28.8 [place] % (Auto) 8.1 Eos % (Auto) 1.7 Baso % (Auto) 0.5 Lymph # (Auto) 1.70 [place] # (Auto) 0.5 Eos # (Auto) 0.1 Baso # (Auto) 0.0 Abs Immat Gran (auto) 0.02 Absolute Neuts (auto) 3.6 Absolute Nucleated RBC 0.0 Nucleated RBC % 0.0 Sodium 138 Potassium 3.7 Chloride 113 H Carbon Dioxide 22 BUN 8 Creatinine 0.60 L Estim Creat Clear Calc 155 Estimated GFR > 60 Glucose 84 Calcium 7.5 L Iron TIBC % Saturation Ferritin Total Bilirubin 0.2 AST 20 ALT 10 Alkaline Phosphatase 75 Total Protein 5.0 L Albumin 3.0 L Vitamin B12 Pending 01/11/20 06:24 WBC RBC Hgb Hct MCV MCH MCHC RDW Plt Count MPV Immature Gran % (Auto) Neut % (Auto) Lymph % (Auto) [place] % (Auto) Eos % (Auto) Baso % (Auto) Lymph # (Auto) [place] # (Auto) Eos # (Auto) Baso # (Auto) Abs Immat Gran (auto) Absolute Neuts (auto) Absolute Nucleated RBC Nucleated RBC % Sodium Potassium Chloride Carbon Dioxide BUN Creatinine Estim Creat Clear Calc Estimated GFR Glucose Calcium Iron 22 L TIBC 307 % Saturation 7 L Ferritin 131.00 Total Bilirubin AST ALT Alkaline Phosphatase Total Protein Albumin Vitamin B12 Post-procedural complaints: none Patient Feedback: Patient satisfied with anesthetic care.
[2020-01-11 08:40] VITALS: O2SAT 99
[2020-01-11] MEDS: ACETAMINOPHEN 500 MG TABLET 1000 MG PO ×3 (10:05→23:28)
[2020-01-11] MEDS: PANTOPRAZOLE 40 MG TABLET PO (10:06)
[2020-01-11] MEDS: levETIRAcetam 1500MG/NACL100ML 1,500 MG/100 ML BAG 400 MG IVPB ×2 (10:07→20:32)
--- NOTE | 2020-01-11 13:07 | PM.IMPN ---
Progress Note: A&P Assessment and Plan (1) Intractable right upper quadrant abdominal pain: Code(s): R10.11 - Right upper quadrant pain Status: Acute Assessment and Plan: RUQ ultrasound no gallstones or other pathology seen. biliary scan normal EGD revealed small gastric ulcer which could be etiology of her symptoms also. B.i.d. PPI. with hematemasis this am , check HH and continue ppi (2) Depression: Qualifiers: Depression Type: unspecified Qualified Code(s): F32.9 - Major depressive disorder, single episode, unspecified Code(s): F32.9 - Major depressive disorder, single episode, unspecified Status: Chronic Assessment and Plan: Resume home meds when appropriate. (3) Anxiety: Code(s): F41.9 - Anxiety disorder, unspecified Status: Chronic Assessment and Plan: PRN anxioloytic medications as needed. (4) Seizure disorder: Code(s): G40.909 - Epilepsy, unspecified, not intractable, without status epilepticus Status: Chronic Assessment and Plan: Continue IV keppra. (5) Anemia: Code(s): D64.9 - Anemia, unspecified Status: Acute Assessment and Plan: Will get iron studies compatible with Fe def and looks to be acute blood loss anemia follow serial HH and transfuse as needed Subjective Date/time seen: 01/11/20 13:07 Interval history: Date of visit 01/10. [age] female admitted with abdomina pain andl vomiting. Had been scheduled for sonogram and possible EGD. Continues to pain and vomited blood this am . Exam Narrative: Exam Narrative: Blood pressure 144/68 pulse is 72 afebrile a Pupils equal reactive to light sclera anicteric Lungs clear CV regular rate rhythm Abdomen is soft bowel sounds present tenderness epigastric Extremities without edema good distal pulses Neuro alert cooperative no focal deficits Objective Data Vital Signs Vital Signs: Vital Signs - 24 hr 01/10/20 14:36 01/10/20 15:11 01/10/20 15:21 Temperature 36.8 C Pulse Rate 50 L 49 L 49 L Respiratory Rate 18 14 13 Blood Pressure 129/67 108/55 L 84/52 L Pulse Oximetry 98 98 99 01/10/20 15:31 01/10/20 17:00 01/10/20 22:00 Temperature 36.6 C 36.6 C Pulse Rate 45 L 55 L 68 Respiratory Rate 15 16 20 Blood Pressure 104/56 L 124/73 159/92 H Pulse Oximetry 100 99 99 01/11/20 06:00 01/11/20 08:40 Temperature 36.7 C Pulse Rate 73 Respiratory Rate 16 Blood Pressure 113/49 L Pulse Oximetry 100 99 Intake/Output Intake/Output: Intake & Output 01/08/20 01/09/20 01/10/20 01/11/20 23:59 23:59 23:59 23:59 Intake Total 1000 2762 1300 Output Total 800 Balance 1000 1962 1300 Meds/Results Medications: Active Medications Generic Name Dose Route Start Last Admin Trade Name Freq PRN Reason Stop Dose Admin Acetaminophen 1,000 mg 01/10/20 15:53 01/11/20 10:05 Tylenol Tablet PO 1,000 mg Q6H PRN Administration Mild Pain (1-3) or Fever Sodium Chloride 1,000 mls @ 125 mls/hr 01/10/20 00:20 01/11/20 05:42 Normal Saline Iv IV CONT 125 mls/hr .Q8H SANA Administration Levetiracetam 1,500 mg in 100 mls @ 400 mls/hr 01/10/20 09:00 01/11/20 10:07 Keppra Iv IVPB 400 mls/hr Q12HR SANA Administration Ondansetron HCl 4 mg 01/10/20 00:18 01/11/20 10:13 Zofran Inj IV PUSH 4 mg Q4H PRN Administration Nausea Pantoprazole Sodium 40 mg 01/10/20 21:00 01/11/20 10:06 Protonix PO 40 mg Q12HR SANA Administration Radiology Results: ITS Impressions Abdomen Ultrasound 01/10/20 08:47 IMPRESSION: 1. Normal right upper quadrant ultrasound. Hepatobiliary Scan Nuclear Medicine 01/11/20 10:08 IMPRESSION: Normal examination 30 minute gallbladder ejection fraction of 65% Labs Labs: Laboratory Results - last 24 hr 01/11/20 01/11/20 01/11/20 06:24 06:24 06:24 WBC 5.9 RBC 3.30 L Hgb 8.6 L Hct 27.9 L MCV 84.5 MCH 26.1
[2020-01-11 13:31] VITALS: BP 147/89; PULSE 60; RESP 18; TEMP 36.5; O2SAT 100
[2020-01-11 14:00] VITALS: BP 112/60; PULSE 50; RESP 16; TEMP 36.8; O2SAT 100
--- NOTE | 2020-01-11 14:27 | WPDGIPROGNO ---
Progress Note: A&P Additional Plan Patient alert and comfortable today. Epigastric pain has lessened to some degree. She did have an episode hematemesis this afternoon. Small amount of bright red blood vomited. Physical exam reveals her to be alert. Comfortable at rest. Vital signs stable. Lungs are clear. Heart without murmur. Abdomen is obese. Currently bowel sounds are present soft nontender with no organomegaly. Labs reveal slight decline in hemoglobin. Current hemoglobin 8.6, hematocrit 27.9. MCV 84. Impression 1. Anastomotic ulcer. Identified be EGD yesterday. This is the source of her recent hematemesis. Currently vital signs stable with stable hemoglobin. Plan is to continue proton pump inhibitor. Limit to liquid diet today until nausea has subsided. Continue to monitor hemoglobin closely. Avoid nonsteroidal anti-inflammatory agents. 2. History of gastric bypass. Ulcer located at surgical anastomosis. Subjective Date/time seen: 01/11/20 14:27 Objective Data Vital Signs Vital Signs: Vital Signs - 24 hr 01/10/20 14:36 01/10/20 15:11 01/10/20 15:21 Temperature 36.8 C Pulse Rate 50 L 49 L 49 L Respiratory Rate 18 14 13 Blood Pressure 129/67 108/55 L 84/52 L Pulse Oximetry 98 98 99 01/10/20 15:31 01/10/20 17:00 01/10/20 22:00 Temperature 36.6 C 36.6 C Pulse Rate 45 L 55 L 68 Respiratory Rate 15 16 20 Blood Pressure 104/56 L 124/73 159/92 H Pulse Oximetry 100 99 99 01/11/20 06:00 01/11/20 08:40 01/11/20 13:31 Temperature 36.7 C 36.5 C Pulse Rate 73 60 Respiratory Rate 16 18 Blood Pressure 113/49 L 147/89 H Pulse Oximetry 100 99 100 Intake/Output Intake/Output: Intake & Output 01/08/20 01/09/20 01/10/20 01/11/20 23:59 23:59 23:59 23:59 Intake Total 1000 2762 1300 Output Total 800 Balance 1000 1962 1300 Meds/Results Medications: Active Medications Generic Name Dose Route Start Last Admin Trade Name Freq PRN Reason Stop Dose Admin Acetaminophen 1,000 mg 01/10/20 15:53 01/11/20 10:05 Tylenol Tablet PO 1,000 mg Q6H PRN Administration Mild Pain (1-3) or Fever Sodium Chloride 1,000 mls @ 125 mls/hr 01/10/20 00:20 01/11/20 05:42 Normal Saline Iv IV CONT 125 mls/hr .Q8H SANA Administration Levetiracetam 1,500 mg in 100 mls @ 400 mls/hr 01/10/20 09:00 01/11/20 10:07 Keppra Iv IVPB 400 mls/hr Q12HR SANA Administration Ondansetron HCl 4 mg 01/10/20 00:18 01/11/20 10:13 Zofran Inj IV PUSH 4 mg Q4H PRN Administration Nausea Pantoprazole Sodium 40 mg 01/10/20 21:00 01/11/20 10:06 Protonix PO 40 mg Q12HR SANA Administration Radiology Results: ITS Impressions Abdomen Ultrasound 01/10/20 08:47 IMPRESSION: 1. Normal right upper quadrant ultrasound. Hepatobiliary Scan Nuclear Medicine 01/11/20 10:08 IMPRESSION: Normal examination 30 minute gallbladder ejection fraction of 65% Labs Labs: Laboratory Results - last 24 hr 01/11/20 01/11/20 01/11/20 06:24 06:24 06:24 WBC 5.9 RBC 3.30 L Hgb 8.6 L Hct 27.9 L MCV 84.5 MCH 26.1 MCHC 30.8 L RDW 15.3 H Plt Count 232 MPV 10.8 H Immature Gran % (Auto) 0.3 Neut % (Auto) 60.6 Lymph % (Auto) 28.8 [place] % (Auto) 8.1 Eos % (Auto) 1.7 Baso % (Auto) 0.5 Lymph # (Auto) 1.70 [place] # (Auto) 0.5 Eos # (Auto) 0.1 Baso # (Auto) 0.0 Abs Immat Gran (auto) 0.02 Absolute Neuts (auto) 3.6 Absolute Nucleated RBC 0.0 Nucleated RBC % 0.0 Sodium 138 Potassium 3.7 Chloride 113 H Carbon Dioxide 22 BUN 8 Creatinine 0.60 L Estim Creat Clear Calc 155 Estimated GFR > 60 Glucose 84 Calcium 7.5 L Iron TIBC % Saturation Ferritin Total Bilirubin 0.2 AST 20 ALT 10 Alkaline Phosphatase 75 Total Protein 5.0 L Albumin 3.0 L Vitamin B12 240.0 01/11/20 06:24 WBC RBC Hgb Hct MCV MCH MCHC
[2020-01-11 15:24] LABS: Hematocrit 28.8 % (37.0-47.0); Hemoglobin 8.8 g/dL (12.0-15.0); Mean Corpuscular HGB Conc 30.6 g/dl (32-36); Mean Corpuscular Hemoglobin 25.8 pg (26-34); Mean Corpuscular Volume 84.5 fl (80-100); Mean Platelet Volume 10.4 fl (7.4-10.4); Platelet Count Result 228 k/mm3 (150-375); Red Blood Count 3.41 M/mm3 (4.2-5.4)
[2020-01-11 20:18] LABS: Hematocrit 29.5 % (37.0-47.0); Hemoglobin 8.9 g/dL (12.0-15.0); Mean Corpuscular HGB Conc 30.2 g/dl (32-36); Mean Corpuscular Hemoglobin 25.6 pg (26-34); Mean Corpuscular Volume 84.8 fl (80-100); Mean Platelet Volume 10.2 fl (7.4-10.4); Platelet Count Result 231 k/mm3 (150-375); Red Blood Count 3.48 M/mm3 (4.2-5.4); Red Cell Distribution Width 14.8 % (11.5-14.5); White Blood Count 6.5 K/mm3 (4.5-10.0)
[2020-01-11] MEDS: PANTOPRAZOLE SODIUM IV 40 MG VIAL IV PUSH (20:32)
[2020-01-11] MEDS: MORPHINE SULFATE 2 MG/ML INJ IV PUSH (21:11)
[2020-01-11 22:00] VITALS: BP 139/89; PULSE 55; RESP 16; TEMP 36.3; O2SAT 100
[2020-01-12] MEDS: ONDANSETRON INJ 4 MG/2 ML VIAL IV PUSH ×4 (01:19→19:47)
[2020-01-12] MEDS: MORPHINE SULFATE 4 MG/ML INJ IV PUSH (01:45)
[2020-01-12 01:49] LABS: Basophils Percent Auto 0.5 % (0.2-1.2); Eosinophils Absolute Auto 0.1 K/mm3 (0-0.3); Eosinophils Percent Auto 1.5 % (0-4.4); Hematocrit 29.7 % (37.0-47.0); Hemoglobin 9.1 g/dL (12.0-15.0); Immature Granulocyte Absolute 0.01 K/mm3 (0.00-0.031); Immature Granulocyte Percent A 0.1 % (0-0.5); Lymphocytes Absolute Auto 2.19 K/mm3 (0.9-3.2); Lymphocytes Percent Auto 28.9 % (18.3-44.2); Mean Corpuscular HGB Conc 30.6 g/dl (32-36); Mean Corpuscular Hemoglobin 25.7 pg (26-34); Mean Corpuscular Volume 83.9 fl (80-100); Mean Platelet Volume 10.5 fl (7.4-10.4); Monocytes Absolute Auto 0.6 K/mm3 (0.1-0.6); Neutrophils Absolute Auto 4.6 K/mm3 (1.3-6.7); Platelet Count Result 232 k/mm3 (150-375); Red Blood Count 3.54 M/mm3 (4.2-5.4); Red Cell Distribution Width 14.8 % (11.5-14.5); White Blood Count 7.6 K/mm3 (4.5-10.0)
[2020-01-12 02:04] LABS: Blood Urea Nitrogen 5 mg/dL (7-17); Carbon Dioxide 23 mmol/L (22-30); Chloride 112 mmol/L (98-107); Estimated CRCL calculation 155 ml/min; Estimated Glomerular Filt Rate > 60; Glucose 88 mg/dL (65-105); Potassium 3.3 mmol/L (3.4-5.0); Sodium 138 mmol/L (137-145)
[2020-01-12 06:00] VITALS: BP 133/63; PULSE 53; RESP 16; TEMP 37.1; O2SAT 98
[2020-01-12] MEDS: levETIRAcetam 1500MG/NACL100ML 1,500 MG/100 ML BAG 400 MG IVPB ×2 (08:58→20:31)
[2020-01-12] MEDS: ACETAMINOPHEN 500 MG TABLET 1000 MG PO (10:37)
[2020-01-12] MEDS: POTASSIUM CHLORIDE 20 MEQ TABLET 40 MEQ PO (10:38)
[2020-01-12 14:00] VITALS: BP 134/69; PULSE 51; RESP 18; TEMP 36.6; O2SAT 100
--- NOTE | 2020-01-12 14:53 | PM.IMPN ---
Progress Note: A&P Assessment and Plan (1) Intractable right upper quadrant abdominal pain: Code(s): R10.11 - Right upper quadrant pain Status: Acute Assessment and Plan: RUQ ultrasound gallstones with no other pathology seen. biliary scan normal EGD revealed small gastric ulcer which could be etiology of her symptoms also. B.i.d. PPI. with hematemasis again this am , check HH and continue ppi still consider GB as source of pain , symptomatic cholelethiasis though not cholecystitis (2) Depression: Qualifiers: Depression Type: unspecified Qualified Code(s): F32.9 - Major depressive disorder, single episode, unspecified Code(s): F32.9 - Major depressive disorder, single episode, unspecified Status: Chronic Assessment and Plan: Resume home meds when appropriate. (3) Anxiety: Code(s): F41.9 - Anxiety disorder, unspecified Status: Chronic Assessment and Plan: PRN anxioloytic medications as needed. (4) Seizure disorder: Code(s): G40.909 - Epilepsy, unspecified, not intractable, without status epilepticus Status: Chronic Assessment and Plan: Continue IV keppra. (5) Anemia: Code(s): D64.9 - Anemia, unspecified Status: Acute Assessment and Plan: iron studies compatible with Fe def and looks to be acute blood loss anemia follow serial HH and transfuse as needed hgb early this am stable at 9.1 Subjective Date/time seen: 01/12/20 14:53 Interval history: Date of visit 01/11. [age] y/o female admitted with abdomina pain and vomiting. Had been scheduled for sonogram and possible EGD. Continues to have pain and vomited blood again early this am . Exam Narrative: Exam Narrative: Blood pressure 132/64 pulse is 84 afebrile a Pupils equal reactive to light sclera anicteric Lungs clear CV regular rate rhythm Abdomen is soft bowel sounds present tenderness epigastric and RUQ still Extremities without edema good distal pulses Neuro alert cooperative no focal deficits Objective Data Vital Signs Vital Signs: Vital Signs - 24 hr 01/11/20 22:00 01/12/20 06:00 Temperature 36.3 C L 37.1 C Pulse Rate 55 L 53 L Respiratory Rate 16 16 Blood Pressure 139/89 133/63 Pulse Oximetry 100 98 Intake/Output Intake/Output: Intake & Output 01/09/20 01/10/20 01/11/20 01/12/20 23:59 23:59 23:59 23:59 Intake Total 1000 2762 3050 1440 Output Total 800 850 Balance 1000 1962 3050 590 Meds/Results Medications: Active Medications Generic Name Dose Route Start Last Admin Trade Name Freq PRN Reason Stop Dose Admin Acetaminophen 1,000 mg 01/10/20 15:53 01/12/20 10:37 Tylenol Tablet PO 1,000 mg Q6H PRN Administration Mild Pain (1-3) or Fever Levetiracetam 1,500 mg in 100 mls @ 400 mls/hr 01/10/20 09:00 01/12/20 09:13 Keppra Iv IVPB Infused Q12HR SANA Infusion Pantoprazole Sodium 80 mg/ 500 mls @ 50 mls/hr 01/12/20 01:30 01/12/20 12:44 Dextrose IV CONT 50 mls/hr .Q10H SANA Administration Ondansetron HCl 4 mg 01/10/20 00:18 01/12/20 10:24 Zofran Inj IV PUSH 4 mg Q4H PRN Administration Nausea Radiology Results: ITS Impressions Abdomen Ultrasound 01/10/20 08:47 IMPRESSION: 1. Normal right upper quadrant ultrasound. Hepatobiliary Scan Nuclear Medicine 01/11/20 10:08 IMPRESSION: Normal examination 30 minute gallbladder ejection fraction of 65% Abdomen/Pelvis CT 01/11/20 21:21 IMPRESSION: Interval development of severe periportal edema, some pericholecystic and perihepatic fluid. Consider acute hepatitis, cholangitis or pancreatitis. Labs Labs: Laboratory Results - last 24 hr 01/11/20 01/11/20 01/12/20 15:19 20:10 01:41 WBC 7.0 6.5 7.6 RBC 3.41 L 3.48 L 3.54 L Hgb 8.8 L 8.9 L 9.1 L Hct 28.8 L 29.5 L 29.7 L MCV 84.5 84.8 83.9 MCH 25.8 L 25.6 L 25.7 L MCHC 30.6 L 30.2 L 30.6 L RDW 15.0 H
[2020-01-12 15:23] LABS: Hematocrit 27.6 % (37.0-47.0); Hemoglobin 8.7 g/dL (12.0-15.0); Mean Corpuscular HGB Conc 31.5 g/dl (32-36); Mean Corpuscular Hemoglobin 26.2 pg (26-34); Mean Corpuscular Volume 83.1 fl (80-100); Mean Platelet Volume 10.1 fl (7.4-10.4); Platelet Count Result 215 k/mm3 (150-375); Red Blood Count 3.32 M/mm3 (4.2-5.4); Red Cell Distribution Width 14.8 % (11.5-14.5); White Blood Count 5.1 K/mm3 (4.5-10.0)
[2020-01-12] MEDS: HYDROMORPHONE HCL 1 MG/ML INJ 0.5 MG IV PUSH ×3 (16:30→22:54)
[2020-01-12 22:00] VITALS: BP 140/73; PULSE 84; RESP 18; TEMP 37.1; O2SAT 100
[2020-01-12] MEDS: PROMETHAZINE HCL 25 MG/ML AMPUL IM (22:54)
[2020-01-13] VITALS (13 sets, daily range): BP systolic 64–144; BP diastolic 51–94; PULSE 64–113; RESP 12–161; TEMP 36.6–37.3; O2SAT 93–100
[2020-01-13] MEDS: ONDANSETRON INJ 4 MG/2 ML VIAL IV PUSH ×4 (02:30→21:46)
[2020-01-13] MEDS: HYDROMORPHONE HCL 1 MG/ML INJ 0.5 MG IV PUSH ×2 (02:30→08:41)
[2020-01-13] MEDS: LORAZEPAM INJ 2 MG/ML VIAL IV PUSH ×3 (02:50→22:22)
--- NOTE | 2020-01-13 03:15 | P.PNCROSS_ITS ---
Event Note Event Note Event Note: RAPID RESPONSE NOTE This is a 24 year old female with known Seizure disorder who is being treated on our Hospitalist service for RUQ abdominal pain, nausea and vomiting. Tonight around 2:42 am the patient verbalized to the nursing staff that she did not feel good and began to have a clonic tonic seizure. Approximately 5 minutes into her seizure I was called by nursing staff. I instructed the nurses to administer 2 mg IV of ativan and I came to bedside. On arrival to the bedside the patient was placed on oxygen via nonrebreather as she was saturating in the 70s on pulse oximetry. A rapid response was called and the paitent's blood glucose was checked at bedside and was normal. The patient was then given 10 mg IV of Valium for her continued violent clonic tonic seizure like activity. The patient was nonresponsive during seizure like activity. Approximately 7 minutes after the IV Valium was administered the patient stopped seizing. Total time of seizure was approximately 24 mintues. Inital blood pressure was 64/51 mm Hg. A 500 cc IV NS bolus was started at bedside and the patient was transferred to the ICU. I have consulted our Audiovisual Production Specialist, Dr. Cervantes and discussed the case in detail with him. I have also consulted Neurology, Dr. Yepez and discussed the case with him and he advises that we load the patient with 1 gram of IV Depacon at this time. The patient has been getting 1500 mg IV Keppra BID. Stat CT brain was obtained and was unremarkable. CXR was also obtained and routine labs which demonstrated mild hypokalemia. On returning from radiology the patient began to have another generalized clonic tonic seizure and ICU nursing staff called me. The patient was give 5 mg of IV Valium and her seizure like activity stopped after approximately 5 minutes. We will continue close post seizure care and notify Neurology of the changes. Total Critical Care time spent overnight exceeded 42 minutes.
--- NOTE | 2020-01-13 03:37 | PC.NURSE ---
02:42 Pt stated she doesnt feel good and began to have grand mal seizure. Pt was repositioned to her side to protect airway. medical cost consultant called to room along with Dr. Jimenez. Rapid response was called. Pt O2 saturation was 70%. 15L via nonrebreather mask applied. O2 saturation improved to 100%. Pt given ativan, and valium IV. 1L bolus initiated for hypotension. Seizure lasted approx 24 minutes. Pt was postictal and transfered to ICU bed 6.
[2020-01-13 03:50] LABS: Basophils Percent Auto 0.5 % (0.2-1.2); Eosinophils Absolute Auto 0.1 K/mm3 (0-0.3); Eosinophils Percent Auto 1.1 % (0-4.4); Hematocrit 31.6 % (37.0-47.0); Hemoglobin 9.5 g/dL (12.0-15.0); Immature Granulocyte Absolute 0.03 K/mm3 (0.00-0.031); Immature Granulocyte Percent A 0.4 % (0-0.5); Mean Corpuscular HGB Conc 30.1 g/dl (32-36); Mean Corpuscular Hemoglobin 25.7 pg (26-34); Mean Corpuscular Volume 85.4 fl (80-100); Mean Platelet Volume 11.3 fl (7.4-10.4); Monocytes Absolute Auto 0.6 K/mm3 (0.1-0.6); Monocytes Percent Auto 7.7 % (2.6-8.5); Neutrophils Percent Auto 76.3 % (45.5-73.1); Platelet Count Result 211 k/mm3 (150-375); Red Cell Distribution Width 14.8 % (11.5-14.5); White Blood Count 7.8 K/mm3 (4.5-10.0)
[2020-01-13 04:01] LABS: Alanine Aminotransferase 20 U/L (4-35); Albumin Level 3.4 g/dL (3.5-5.1); Alkaline Phosphatase 84 U/L (38-126); Aspartate Amino Transferase 24 U/L (14-36); Bilirubin,Total < 0.1 mg/dL (0.2-1.3); Blood Urea Nitrogen 5 mg/dL (7-17); Carbon Dioxide 22 mmol/L (22-30); Chloride 108 mmol/L (98-107); Estimated CRCL calculation 135 ml/min; Estimated Glomerular Filt Rate > 60; Glucose 105 mg/dL (65-105); Magnesium 1.8 mg/dL (1.6-2.3); Phosphorus 4.1 mg/dL (2.5-4.5); Potassium 3.2 mmol/L (3.4-5.0); Sodium 137 mmol/L (137-145)
[2020-01-13 04:14] LABS: Glucose Point of Care 187 (65-105)
--- NOTE | 2020-01-13 04:16 | PC.NURSE ---
This patient, Preethi Napier, was transferred to ICU 6 on 01/13/20 at 0315. Personal belongings sent with patient. Report given to Lucy GUERRERO. Appropriate documentation sent with patient.
--- NOTE | 2020-01-13 04:29 | PC.NURSE ---
Patient noted to be seizing at 0417 on 01/13/2020. Dr. Jimenez notified at the onset of seizure activity. Diazepam 5 mg ordered and administered. Seizure length of 5 minutes observed.
[2020-01-13] MEDS: SODIUM CHLORIDE 0.9% IV 1,000 ML 999 ML (05:30)
--- NOTE | 2020-01-13 05:31 | PC.NURSE ---
Patient contact called to report change in patient condition. No answer.
--- NOTE | 2020-01-13 06:15 | PC.NURSE ---
Dr. Oksana velezacted in regards to patient seizure activity per Dr. Jimenez request. States will see patient today.
--- NOTE | 2020-01-13 06:18 | PC.NURSE ---
This patient, Preethi Napier, was received from [facility] on Med/Surg on 01/13/20 at 0340. Personal belongings list checked and signed. Patient postictal and unable to be oriented to unit at this time. Bed alarm applied. Placed on general dentist/owner.
--- NOTE | 2020-01-13 07:08 | WPDGIPROGNO ---
Progress Note: A&P Additional Plan Patient alert this morning. Comfortable at rest. States she feels achy in general. Now in the ICU. She had a generalized tonic colonic seizure yesterday. Physical exam reveals her to be alert and oriented this morning. She is anicteric. Lungs are clear. Heart without murmur. Abdomen is obese. Bowel sounds are present soft mild epigastric tenderness noted. Labs reveal hemoglobin 9.5, hematocrit 31.6, MCV 85. Impression 1. Seizure disorder. Patient had a seizure last evening. Likely because of not taking her medicines associated with epigastric pain and nausea. Neurology to see patient today. 2. History of gastric bypass. 3. Anastomotic ulcer. Likely etiology for her pain. Also for her nausea. She does have a small stomach. Plan is for proton pump inhibitor. Avoid nonsteroidal anti-inflammatory agents. Follow-up EGD advised in 2 months. She did have a small amount of bleeding over the weekend. Continue to monitor hemoglobin. Subjective Date/time seen: 01/13/20 07:08 Objective Data Vital Signs Vital Signs: Vital Signs - 24 hr 01/12/20 14:00 01/12/20 22:00 01/13/20 03:30 Temperature 36.6 C 37.1 C Pulse Rate 51 L 84 113 H Respiratory Rate 18 18 24 H Blood Pressure 134/69 140/73 64/51 L Pulse Oximetry 100 100 100 01/13/20 04:00 01/13/20 06:00 Temperature 37.3 C Pulse Rate 87 87 Respiratory Rate 16 14 Blood Pressure 132/66 106/86 Pulse Oximetry 99 99 Intake/Output Intake/Output: Intake & Output 01/10/20 01/11/20 01/12/20 01/13/20 23:59 23:59 23:59 23:59 Intake Total 2762 3050 2780 110 Output Total 800 1850 1100 Balance 1962 3050 930 -990 Meds/Results Medications: Active Medications Generic Name Dose Route Start Last Admin Trade Name Freq PRN Reason Stop Dose Admin Acetaminophen 1,000 mg 01/10/20 15:53 01/12/20 10:37 Tylenol Tablet PO 1,000 mg Q6H PRN Administration Mild Pain (1-3) or Fever Hydromorphone HCl 0.5 mg 01/12/20 15:46 01/13/20 02:30 Dilaudid Inj IV PUSH 0.5 mg Q3H PRN Administration Pain Rated 7-10 Levetiracetam 1,500 mg in 100 mls @ 400 mls/hr 01/10/20 09:00 01/12/20 20:46 Keppra Iv IVPB Infused Q12HR SANA Infusion Pantoprazole Sodium 80 mg/ 500 mls @ 50 mls/hr 01/12/20 01:30 01/13/20 01:10 Dextrose IV CONT 50 mls/hr .Q10H SANA Administration Potassium Chloride 500 mls @ 125 mls/hr 01/13/20 04:33 01/13/20 05:24 Kcl 40 Meq/D5w 500 Ml Peripheral IVPB 01/13/20 08:32 125 mls/hr ONCE ONE Administration Ondansetron HCl 4 mg 01/10/20 00:18 01/13/20 02:30 Zofran Inj IV PUSH 4 mg Q4H PRN Administration Nausea Radiology Results: ITS Impressions Abdomen Ultrasound 01/10/20 08:47 IMPRESSION: 1. Normal right upper quadrant ultrasound. Hepatobiliary Scan Nuclear Medicine 01/11/20 10:08 IMPRESSION: Normal examination 30 minute gallbladder ejection fraction of 65% Abdomen/Pelvis CT 01/11/20 21:21 IMPRESSION: Interval development of severe periportal edema, some pericholecystic and perihepatic fluid. Consider acute hepatitis, cholangitis or pancreatitis. Labs Labs: Laboratory Results - last 24 hr 01/12/20 01/13/20 01/13/20 15:14 02:52 03:41 WBC 5.1 7.8 RBC 3.32 L 3.70 L Hgb 8.7 L 9.5 L Hct 27.6 L 31.6 L MCV 83.1 85.4 MCH 26.2 25.7 L MCHC 31.5 L 30.1 L RDW 14.8 H 14.8 H Plt Count 215 211 MPV 10.1 11.3 H Immature Gran % (Auto) 0.4 Neut % (Auto) 76.3 H Lymph % (Auto) 14.0 L Jerome % (Auto) 7.7 Eos % (Auto) 1.1 Baso % (Auto) 0.5 Lymph # (Auto) 1.10 Jerome # (Auto) 0.6 Eos # (Auto) 0.1 Baso # (Auto) 0.0 Abs Immat Gran (auto) 0.03 Absolute Neuts (auto) 6.0 Absolute Nucleated RBC 0.0 Nucleated RBC % 0.0 Sodium Potassium Chloride Carbon Dioxide BUN Creatinine Estim Creat Clear Calc Estimated GFR Glucose POC
[2020-01-13] MEDS: levETIRAcetam 1500MG/NACL100ML 1,500 MG/100 ML BAG 400 MG IVPB ×2 (08:42→20:03)
[2020-01-13] MEDS: MAGNESIUM SULF 2 GM/WATER 50ML 2 GM/50 ML BAG IVPB (08:42)
--- NOTE | 2020-01-13 09:38 | WPDCNINT ---
Assessment and Plan Assessment and plan (1) Seizure disorder: Code(s): G40.909 - Epilepsy, unspecified, not intractable, without status epilepticus Status: Chronic Assessment and Plan: Acute seizure disorder, given history of seizures but had not been taking her medications due to nausea and vomiting -no seizure activity at this time, patient is on Keppra and received 1 dose of IV valproic acid -p.r.n. Ativan has been ordered -appreciate Neurology evaluation, -EEG today (2) Cholecystitis: Code(s): K81.9 - Cholecystitis, unspecified Status: Acute Assessment and Plan: Patient with persistent right upper quadrant pain -01/10/2020: Right upper quadrant ultrasound: Normal RUQ ultrasound -01/11/2020: HIDA scan: Normal examination -01/11/2020: CT abdomen and pelvis with contrast: Shows interval development of severe marty portal edema, some pericholecystic and perihepatic fluid. Consider acute hepatitis, cholangitis, pancreatitis. -LFTs in normal limits, total bilirubin <0.1 -given persistent right upper quadrant pain, nausea and vomiting, surgery was consulted, patient may have acute cholecystitis, surgery recommended cholecystectomy on 01/14/2020 -start patient on Zosyn (3) Nausea & vomiting: Qualifiers: Vomiting type: unspecified Vomiting Intractability: unspecified Qualified Code(s): R11.2 - Nausea with vomiting, unspecified Code(s): R11.2 - Nausea with vomiting, unspecified Status: Acute Assessment and Plan: Patient with persistent nausea, only able to keep clear liquids. -continue p.r.n. antiemetics (4) Obesity (BMI 30.0-34.9): Code(s): E66.9 - Obesity, unspecified Status: Acute Assessment and Plan: Patient with history of sleeve gastrectomy, follows up with GI (5) Anxiety: Code(s): F41.9 - Anxiety disorder, unspecified Status: Chronic Assessment and Plan: History of anxiety (6) Depression: Qualifiers: Depression Type: unspecified Qualified Code(s): F32.9 - Major depressive disorder, single episode, unspecified Code(s): F32.9 - Major depressive disorder, single episode, unspecified Status: Chronic Assessment and Plan: History of depression (7) DVT prophylaxis: Code(s): Z29.9 - Encounter for prophylactic measures, unspecified Status: Acute Assessment and Plan: SCDs (8) Gastric ulcer: Qualifiers: Gastric ulcer chronicity: acute Gastric ulcer complication status: without hemorrhage or perforation Qualified Code(s): K25.3 - Acute gastric ulcer without hemorrhage or perforation Code(s): K25.9 - Gastric ulcer, unspecified as acute or chronic, without hemorrhage or perforation Status: Acute Assessment and Plan: Gastric ulcer at the site of anastomosis from previous sleeve gastrectomy. -continue Protonix infusion Additional Plan Discussed with patient updated with her condition and plan of care. Patient is aware that she is going to get an EEG today. Patient was also seen by surgery, plan for cholecystectomy in the morning on 01/14/2020 where the patient has also wear of. Code status: Full code Critical care time spent: 39 minutes Due to a high probability of clinically significant, life threatening deterioration, the patient required my highest level of preparedness to intervene emergently and I personally spent this critical care time directly and personally managing the patient. This critical care time included obtaining a history; examining the patient; pulse oximetry; ordering and review of studies; arranging urgent treatment with development of a management plan; evaluation of patient's response to treatment; frequent reassessment; and discussions with other providers. It was exclusive of separately billable procedures and treating other patients and teaching time. Please see Assessment and Plan section and the rest of the note for
[2020-01-13 09:56] LABS: Blood Urea Nitrogen 3 mg/dL (7-17); Calcium 7.9 mg/dL (8.4-10.2); Carbon Dioxide 25 mmol/L (22-30); Chloride 108 mmol/L (98-107); Estimated CRCL calculation 155 ml/min; Estimated Glomerular Filt Rate > 60; Glucose 90 mg/dL (65-105); Potassium 3.8 mmol/L (3.4-5.0); Sodium 137 mmol/L (137-145)
--- NOTE | 2020-01-13 10:28 | PM.CNGS ---
Assessment and Plan Assessment and plan (1) Cholecystitis: Code(s): K81.9 - Cholecystitis, unspecified Status: Acute Assessment and Plan: All diagnostic imaging was reviewed and discussed with the patient. HIDA scan and abdominal ultrasound are both normal with no evidence of cholelithiasis. The repeat CT scan did show interval development of severe periportal edema, some pericholecystic and perihepatic fluid with a distended gallbladder but again no evidence of calcified cholelithiasis. After a thorough evaluation of the patient and discussing her case with Dr. Keyes, her history and physical exam does correlate with gallbladder disease. She seems to have cholecystitis that is likely contributing to her symptoms, although this is not reciprocated on imaging. We had a discussion with the patient that there is also a chance that some of her symptoms may persist following surgery if this is related to other etiologies, such as her anastomotic ulcer or, less likely, sphincter of oddi dysfunction. We discussed treatment options with the patient, including the recommendation of proceeding with a laparoscopic cholecystectomy by Dr. Keyes. Description of the procedure, risks, benefits, indications, and expected outcomes were discussed with the patient in detail. All questions were answered. She would like to proceed with surgery and will be added onto the schedule tomorrow. Also discussed the case with Dr. Persaud and recommended adding IV antibiotics while awaiting surgery. Will allow the patient to have up to a low fat diet today if she is able to tolerate this and then make her NPO after midnight. Thank you for allowing me to see the patient in consultation and we will continue to follow along with you. (2) Gastric ulcer: Qualifiers: Gastric ulcer chronicity: acute Gastric ulcer complication status: without hemorrhage or perforation Qualified Code(s): K25.3 - Acute gastric ulcer without hemorrhage or perforation Code(s): K25.9 - Gastric ulcer, unspecified as acute or chronic, without hemorrhage or perforation Status: Acute Assessment and Plan: Found on EGD. Currently on PPI therapy. GI following and their recommendations noted. This could be contributing to her symptoms as well. See plan above. (3) Intractable right upper quadrant abdominal pain: Code(s): R10.11 - Right upper quadrant pain Status: Acute Assessment and Plan: See plan above. (4) Nausea & vomiting: Code(s): R11.2 - Nausea with vomiting, unspecified Status: Acute Assessment and Plan: See plan above. (5) Seizure disorder: Code(s): G40.909 - Epilepsy, unspecified, not intractable, without status epilepticus Status: Chronic Assessment and Plan: Now receiving Keppra IV. (6) Obesity (BMI 30.0-34.9): Code(s): E66.9 - Obesity, unspecified Status: Acute (7) Anemia: Code(s): D64.9 - Anemia, unspecified Status: Acute Assessment and Plan: Stable. Additional Plan Discussed the patient's case and formulated the plan with Dr. Keyes. History of Present Illness Consult details Consult date: 01/13/20 Reason for consult: other (Right upper quadrant abdominal pain with persistent nausea and vomiting) Requesting physician: Vishnu Baptiste MD Narrative: This is a 24-year-old obese female with a history of a seizure disorder. She has been experiencing right upper quadrant abdominal pain for a few years that was mild and intermittent. She reports this would typically occur after eating and has recently become more frequent and intense. She also reports associated nausea and vomiting. She had initially presented to the emergency department for her symptoms on 01/05/20 and was sent home after symptoms improved and CT scan of the abdomen and pelvis was normal. She states that starting last her right upper quadrant abdominal pain worsened and has remained
--- NOTE | 2020-01-13 10:31 | PM.IMPN ---
Progress Note: A&P Assessment and Plan (1) Intractable right upper quadrant abdominal pain: Code(s): R10.11 - Right upper quadrant pain Status: Acute Assessment and Plan: RUQ ultrasound no gallstones and no other pathology seen. biliary scan normal Ct 01/10 some pericholecystic fluid EGD revealed small gastric ulcer which could be etiology of her symptoms also. B.i.d. PPI. with hematemasis 01/11 , hgb stable at 9.5 this am still consider GB as source of pain , symptomatic though not cholecystitis Surgery to see for their opinion (2) Depression: Qualifiers: Depression Type: unspecified Qualified Code(s): F32.9 - Major depressive disorder, single episode, unspecified Code(s): F32.9 - Major depressive disorder, single episode, unspecified Status: Chronic Assessment and Plan: Resume home meds when appropriate. (3) Anxiety: Code(s): F41.9 - Anxiety disorder, unspecified Status: Chronic Assessment and Plan: PRN anxioloytic medications as needed. (4) Seizure disorder: Code(s): G40.909 - Epilepsy, unspecified, not intractable, without status epilepticus Status: Chronic Assessment and Plan: Continue IV keppra. Had missed oral meds with nausea vomiting and po status and had seizure this am Neurology to see and resume meds (5) Anemia: Code(s): D64.9 - Anemia, unspecified Status: Acute Assessment and Plan: iron studies compatible with Fe def and looks to be acute blood loss anemia follow serial HH and transfuse as needed hgb this am stable at 9.5 Subjective Date/time seen: 01/13/20 10:31 Interval history: Date of visit 01/12. [age] y/o female admitted with abdomina pain and vomiting. Had been scheduled for sonogram and possible EGD as outpt.. Continues to have pain and intermittant mild hematemasis this past weekend. Seizure early this am Still RUQ pain and nausea . Exam Narrative: Exam Narrative: Blood pressure 120/86 pulse is 80 afebrile Pupils equal reactive to light sclera anicteric Lungs clear CV regular rate rhythm Abdomen is soft bowel sounds present tenderness epigastric and RUQ still Extremities without edema good distal pulses Neuro alert cooperative no focal deficits Objective Data Vital Signs Vital Signs: Vital Signs - 24 hr 01/12/20 14:00 01/12/20 22:00 01/13/20 03:30 Temperature 36.6 C 37.1 C Pulse Rate 51 L 84 113 H Respiratory Rate 18 18 24 H Blood Pressure 134/69 140/73 64/51 L Pulse Oximetry 100 100 100 01/13/20 04:00 01/13/20 06:00 01/13/20 08:00 Temperature 37.3 C 36.6 C Pulse Rate 87 87 66 Respiratory Rate 16 14 14 Blood Pressure 132/66 106/86 135/85 Pulse Oximetry 99 99 97 01/13/20 10:00 Temperature Pulse Rate 81 Respiratory Rate 12 Blood Pressure 119/88 Pulse Oximetry 99 Intake/Output Intake/Output: Intake & Output 01/10/20 01/11/20 01/12/20 01/13/20 23:59 23:59 23:59 23:59 Intake Total 2762 3050 2780 760 Output Total 800 1850 1100 Balance 1962 3050 930 -340 Meds/Results Medications: Active Medications Generic Name Dose Route Start Last Admin Trade Name Freq PRN Reason Stop Dose Admin Acetaminophen 1,000 mg 01/10/20 15:53 01/12/20 10:37 Tylenol Tablet PO 1,000 mg Q6H PRN Administration Mild Pain (1-3) or Fever Hydromorphone HCl 0.5 mg 01/12/20 15:46 01/13/20 08:41 Dilaudid Inj IV PUSH 0.5 mg Q3H PRN Administration Pain Rated 7-10 Levetiracetam 1,500 mg in 100 mls @ 400 mls/hr 01/10/20 09:00 01/13/20 09:31 Keppra Iv IVPB Infused Q12HR SANA Infusion Pantoprazole Sodium 80 mg/ 500 mls @ 50 mls/hr 01/12/20 01:30 01/13/20 01:10 Dextrose IV CONT 50 mls/hr .Q10H SANA Administration Piperacillin/Tazobactam/Dextrose 3.375 gm in 50 mls @ 100 mls/hr 01/13/20 10:20 Zosyn 3.375 Gm/D5w 50ml Pm IVPB Q6H SANA Lorazepam 2 mg 01/13/20 10:16 Ativan Inj IV PUSH Q1H PRN
--- NOTE | 2020-01-13 10:52 | PCDIET ---
Nutrition Follow-Up Complete: Nutrition Diagnosis: Inadequate oral intake related to pain as evidenced by reported poor po intake. Nutrition Goal: Meet estimated nutritional needs Goal not met. Patient currently NPO with plan for cholecystectomy tomorrow. Plan for EEG later today following overnight seizure activity. Last recorded weight is 115.9 kg. Recommend obtaining new weight. Bowel Motility: +BM on 01/11/20. Labs Reviewed: Hgb (9.5), Hct (31.6), BUN (3), Cr (0.6), Alb (3.4), Quyen Ca (8.38) Meds Noted: Protonix, Zosyn Additional Notes: No documented skin breakdown. Will continue to monitor with same goal. If unable to advance diet by next review, would start to consider parenteral nutrition. Nutrition Monitoring and Evaluation: Will monitor every 3 days.
--- NOTE | 2020-01-13 11:30 | NEURO_ITS ---
TEST: ELECTROENCEPHALOGRAM DIAGNOSIS: SEIZURE PATIENT NUMBER: [id number] EEG NUMBER: [id number] RECORDING DATE: 01/13/20 CLINICAL HISTORY: Patient reports she has had grand mal seizures for about 10 years. Usually well controlled but had one last night. CONDITION OF RECORDING: Awake, drowsy and sleep EEG DESCRIPTION: Basic resting occipital frequency consists of moderate amount of poorly organized low voltage 8-10hz alpha mixed with minimal amount of low voltage 15-18hz beta and 5-7hz theta. During drowsiness low voltage beta activity is seen diffusely mixed with waxing and waning posterior alpha rhythms and intermittent occasional 2-3hz delta activity. Bilateral symmetrical sleep activity is seen during sleep. Intermittent sharp wave transients are also seen. Nonparoxysmal. Nonfocal. Nonlateralizing. IMPRESSION: Mildly abnormal record due to the presence of excessive amount of theta activity and occasional delta activity in addition to the sharp element. Clinical correlation recommended. These abnormalities could be suggestive of underlying organic or metabolic encephalopathy or seizure disorder. MTDD
--- NOTE | 2020-01-13 12:59 | CONS_ITS ---
DATE OF CONSULTATION: 01/13/2020 HISTORY OF PRESENT ILLNESS: A 24-year-old right-handed female has been admitted to [facility] through the emergency room for the complaints of right upper quadrant pain with nausea and vomiting, in addition to ongoing history of seizure disorder. Her upper abdominal discomfort was radiating towards her back in the right upper shoulder. She had been evaluated for the upper abdominal discomfort a few days ago with a CT scan of the abdomen and pelvis, which were unremarkable. She was supposed to be seen by Dr. Nielsen as an outpatient for the endoscopy, but she decided to come to the hospital for the abdominal pain. PAST MEDICAL HISTORY: She does have ongoing history of: 1. Anxiety with depression. 2. Seizure disorder. 3. History of sleeve gastrectomy. FAMILY HISTORY: Positive for diabetes and hypertension. SOCIAL HISTORY: The patient herself is never a smoker, vaps, and 1 drink per week for alcohol. MEDICATIONS: At the time of admission to the hospital this time, she was takin. Aripiprazole 5 mg h.s. 2. Fluoxetine 20 mg daily. 3. Keppra 1500 mg twice a day. 4. Omeprazole 40 mg daily. 5. Zofran 4 mg q.i.d. p.r.n. 6. Oxcarbazepine 300 mg b.i.d. 7. Topiramate 100 mg b.i.d. 8. Trazodone 50 mg p.r.n. ALLERGIES: SHE IS ALLERGIC TO MULTIPLE MEDICATIONS LISTED PARTICULARLY AZITHROMYCIN, CODEINE, FEXOFENADINE, ADHESIVE TAPE, BUPROPION, CLINDAMYCIN, ERYTHROMYCIN, HYDROCODONE, LITHIUM, AND OXYCODONE. PHYSICAL EXAMINATION: VITAL SIGNS: Evaluation revealed her to be afebrile, pulse of 89, respirations 16, blood pressure 155/93 with pulse ox of 100. GENERAL: Examination revealed her to be awake, alert, in no obvious acute distress, mildly uncomfortable. HEENT: Head normocephalic with no cranial bruit. Ear, nose, throat exam normal. NECK: Supple with no cervical bruit. No thyromegaly. No lymphadenopathy. HEART: Regular with no murmur. LUNGS: Clear. ABDOMEN: Soft, though palpation tender. NEUROLOGICAL: She is awake, alert, oriented x3. Speech not dysphasic, not dysarthric. Cranial nerve examination is normal. Motor and sensory exam normal. Reflexes symmetrical. Plantars downgoing. There is no evidence of gross cerebellar deficit. LABORATORY DATA: Evaluation up until now documented CBC with WBC 13.0, hemoglobin 10.4, platelet count of 333. Normal basic metabolic panel except calcium of 8.3, normal hepatic enzymes with albumin 4.1. Negative UA. She was admitted to the regular floor, transferred to ICU for the recurrence of the seizure. At this stage, she is receiving Keppra 1500 mg q.12 hours, in addition to all her other medications. EEG will be obtained and further recommendation made accordingly whether we need to continue the same medication, which she is taking multiple anticonvulsant. We will have to make a decision. GLADYS ZAMORA M.D. PROTECTIVE OFFICER PROTECTIVE OFFICER D Jono MT: Jhonathan
--- NOTE | 2020-01-13 13:50 | PM.PNGS ---
Progress Note: A&P Assessment and Plan (1) Cholecystitis: Code(s): K81.9 - Cholecystitis, unspecified Status: Acute Assessment and Plan: even though patient's testing has been negative, she clinically has all the signs symptoms and exam findings of progressive chronic acalculous cholecystitis. She has a strong family history of this as well. I discussed this with her. I have recommended laparoscopic cholecystectomy. The procedure the risks the benefits have been discussed. I also discussed the potential for underlying sphincter of Oddi syndrome. All questions were answered. She agrees to go ahead tomorrow with the procedure. (2) Seizure disorder: Code(s): G40.909 - Epilepsy, unspecified, not intractable, without status epilepticus Status: Chronic Assessment and Plan: Being treated. (3) Gastric ulcer: Qualifiers: Gastric ulcer chronicity: acute Gastric ulcer complication status: without hemorrhage or perforation Qualified Code(s): K25.3 - Acute gastric ulcer without hemorrhage or perforation Code(s): K25.9 - Gastric ulcer, unspecified as acute or chronic, without hemorrhage or perforation Status: Acute Assessment and Plan: Receiving IV Protonix. Subjective Subjective Date/Time Seen: 01/13/20 13:50 patient is a 24-year-old woman who off and on has had epigastric and right upper quadrant abdominal pain. However in the last 2 weeks a got much worse such that she could not eat and is constantly in pain. The pain is severe and radiates towards her back and right upper shoulder. Patient had an outpatient CT scan of the abdomen and pelvis which was negative. She was scheduled to have an outpatient EGD on January 09 but was in such pain she decided to go to the emergency room instead. She has been admitted and did have an EGD. She has a history of laparoscopic gastric reduction surgery. The EGD showed a marginal ulcer. She has been on treatment for this but is not improved. She had an ultrasound which did not show gallstones. She had a HIDA scan which was normal. I was asked to see her by Dr. Baptiste. I discussed her case with him. She continues to have right upper quadrant pain and tenderness and he is concerned she has cholecystitis despite the negative testing. She has multiple family members who have had cholecystitis and cholecystectomy. She is seen now in consultation. The patient is currently in the ICU as she had a seizure last night. Due to her GI complaints she has not been able to take her medication for seizures. I discussed this with Dr. Persaud, the archival records clerk, and this has been addressed. Review of Systems Review of Systems: All systems reviewed & are unremarkable except as noted in HPI and below Constitutional: Constitutional: Denies headache(s) Cardiovascular: Cardiovascular: Denies chest pain and Denies dyspnea Respiratory: Respiratory: Denies cough and Denies dyspnea Gastrointestinal: Gastrointestinal: Reports as per HPI Neurologic: Denies confusion and Denies headache(s) Exam Const: General: comfortable and no acute distress; No confusion Orientation/consciousness: patient oriented x3 and No confusion GI: Inspection: non-distended, obesity and scar ( laparoscopic scars from bariatric surgery) GI Palp: Yes Soft to palpation, Yes Tenderness to palpation present (GI) ( Significant right upper quadrant tenderness with guarding), Yes Guarding due to palpation present (GI) and No Hernia present Auscultation: normal bowel sounds Neuro: General: patient oriented x3, no focal motor deficits and No confusion Extrem: General: no calf tenderness and no edema Psych: Affect: normal affect Insight: Good insight present (Psych) Judgement: Good judgement present (Psych) Objective Data Vital Signs Vital Signs: Vital Signs - 24 hr 01/12/20 14:00 01/12/20 22:00 01/13/20 03:30 Temperature 36.6 C 37.1 C Pulse Rate 51 L 84 11
[2020-01-13] MEDS: HYDROMORPHONE HCL 1 MG/ML INJ IV PUSH ×2 (16:38→20:16)
--- NOTE | 2020-01-13 17:00 | PC.NURSE ---
This patient, Preethi Napier, was received from ICU 6 on 01/13/20 at 1700. Personal belongings list checked and signed. Patient/family oriented to unit policies and routines
--- NOTE | 2020-01-13 17:05 | PC.NURSE ---
Patient got downgraded to Medical status. Report called to Kathie GUERRERO. Patient travelled via wheelchair with belonging and meds with nurse. Patient hooked back up to IV pump and meds given to city secretary at 1700.
[2020-01-13] MEDS: ACETAMINOPHEN 500 MG TABLET PO (17:42)
[2020-01-13] MEDS: PROMETHAZINE HCL 25 MG/ML AMPUL 12.5 MG IV PUSH (18:41)
[2020-01-13] MEDS: OXcarbazepine 300 MG TABLET PO (20:11)
[2020-01-13] MEDS: TOPIRAMATE 100 MG TABLET PO (20:11)
[2020-01-13] MEDS: ARIPIPRAZOLE 5 MG TABLET PO (20:33)
--- NOTE | 2020-01-13 21:01 | WPDANESEPP ---
Anes - Eval Pre Procedure Procedure: Operation Date: 01/10/20 15:00 Proposed Procedures p Esophagogastroduodenoscopy - Jorge Browning MD Operation Date: 01/14/20 09:00 Proposed Procedures p Laparoscopic Cholecystectomy - Sonido Keyes MD Date/Time: 01/13/20 21:01 Pre Op Diagnosis: Right upper quadrant pain w/ nausea and vomiting+ Patient Data Age: 24 Gender: F Height: 1.65 m Weight: 115.9 kg Last Vital Signs Temp 36.6 C 01/13/20 20:00 Pulse 70 01/13/20 20:00 Resp 20 01/13/20 20:00 BP 144/79 H 01/13/20 20:00 Pulse Ox 100 01/13/20 20:00 Allergies Allergy/AdvReac Type Severity Reaction Status Date / Time azithromycin Allergy Severe swelling Verified 01/09/20 21:36 codeine Allergy Severe swelling Verified 01/09/20 21:36 fexofenadine Allergy Intermediate hives Verified 01/09/20 21:36 adhesive tape Allergy Itching Verified 01/09/20 21:36 bupropion Allergy Hives Verified 01/09/20 21:36 clindamycin Allergy Hives Verified 01/09/20 21:36 erythromycin base Allergy Anaphylaxis Verified 01/09/20 21:36 hydrocodone Allergy Hives Verified 01/09/20 21:36 lithium Allergy Hives Verified 01/09/20 21:36 oxycodone [From Percocet] Allergy Hives Verified 01/09/20 21:36 Home Medications Medication Instructions Recorded Confirmed Type aripiprazole 5 mg PO HS 01/05/20 01/10/20 History fluoxetine 20 mg PO DAILY 01/05/20 01/10/20 History levetiracetam [Keppra] 1,500 mg PO BID 01/05/20 01/10/20 History omeprazole 40 mg PO DAILY #7 cap 01/05/20 01/10/20 Rx ondansetron 4 mg PO QID #7 tablet 01/05/20 01/10/20 Rx oxcarbazepine 300 mg PO BID 01/05/20 01/10/20 History topiramate 100 mg PO BID 01/05/20 01/10/20 History trazodone 50 mg PO PRN PRN 01/05/20 01/10/20 History Laboratory Tests 01/13/20 01/13/20 01/13/20 02:52 03:41 03:41 WBC 7.8 K/mm3 K/mm3 (4.5-10.0) RBC 3.70 M/mm3 L M/mm3 (4.2-5.4) Hgb 9.5 g/dL L g/dL (12.0-15.0) Hct 31.6 % L % (37.0-47.0) MCV 85.4 fl fl (80-100) MCH 25.7 pg L pg (26-34) MCHC 30.1 g/dl L g/dl (32-36) RDW 14.8 % H % (11.5-14.5) Plt Count 211 k/mm3 k/mm3 (150-375) MPV 11.3 fl H fl (7.4-10.4) Immature Gran % (Auto) 0.4 % % (0-0.5) Neut % (Auto) 76.3 % H % (45.5-73.1) Lymph % (Auto) 14.0 % L % (18.3-44.2) [place] % (Auto) 7.7 % % (2.6-8.5) Eos % (Auto) 1.1 % % (0-4.4) Baso % (Auto) 0.5 % % (0.2-1.2) Lymph # (Auto) 1.10 K/mm3 K/mm3 (0.9-3.2) [place] # (Auto) 0.6 K/mm3 K/mm3 (0.1-0.6) Eos # (Auto) 0.1 K/mm3 K/mm3 (0-0.3) Baso # (Auto) 0.0 K/mm3 K/mm3 (0.0-0.1) Abs Immat Gran (auto) 0.03 K/mm3 K/mm3 (0.00-0.031) Absolute Neuts (auto) 6.0 K/mm3 K/mm3 (1.3-6.7) Absolute Nucleated RBC 0.0 K/mm3 K/mm3 (0.0-0.012) Nucleated RBC % 0.0 % % (0.0-0.2) Sodium 137 mmol/L mmol/L (137-145) Potassium 3.2 mmol/L L mmol/L (3.4-5.0) Chloride 108 mmol/L H mmol/L (98-107) Carbon Dioxide 22 mmol/L mmol/L (22-30) BUN 5 mg/dL L mg/dL (7-17) Creatinine 0.70 mg/dL mg/dL (0.7-1.0) Estim Creat Clear Calc 135 ml/min ml/min Estimated GFR > 60 (59 - ) Glucose 105 mg/dL mg/dL (65-105) POC Capillary Glucose 187 mg/dl H mg/dl (65-105) Calcium 8.0 mg/dL L mg/dL (8.4-10.2) Phosphorus 4.1 mg/dL mg/dL (2.5-4.5) Magnesium 1.8 mg/dL mg/dL (1.6-2.3) Total Bilirubin < 0.1 mg/dL L mg/dL (0.2-1.3) AST 24 U/L U/L (14-36) ALT 20 U/L U/L (4-35) Alkaline Phosphatase 84 U/L U/L (38-126) Total Protein 6.0 g/dL L g/dL (6.3-8.2) Albumin 3.4 g/dL L g/dL (3.5-5.1) Levetiracetam Blood Type Antibody Screen
--- NOTE | 2020-01-13 22:45 | PM.EVENT ---
Event Note Event Note Event Note: I was called because the patient continued to have a seizure even after she had received her keppra almost 2 hours ago. She was given a total of 4 mg of ativan without any relief from the seizure. the patient was having a clonic tonic seizure. i called Dr elder who then recommended valium. We aso placed the patient on a nrb mask and she stopped seizing after the valium. I called the glass vial filler Dr. Robb and he agrees to consult on the patient. She is post ictal at this time.Dr. Gandhi is already consulted as well and has seen her today. Call out to neurologist.
[2020-01-14] VITALS (19 sets, daily range): BP systolic 117–137; BP diastolic 59–95; PULSE 62–114; RESP 13–21; TEMP 36.6–36.9; O2SAT 92–100
--- NOTE | 2020-01-14 01:55 | PC.NURSE ---
This patient, Preethi Napier, was received from [ second medical room 260] on 01/14/20 at 0000. Personal belongings list checked and signed. Patient/family oriented to unit policies and routines
[2020-01-14] MEDS: ONDANSETRON INJ 4 MG/2 ML VIAL IV PUSH ×4 (02:11→19:56)
[2020-01-14] MEDS: HYDROMORPHONE HCL 1 MG/ML INJ IV PUSH ×7 (02:11→23:27)
[2020-01-14 04:58] LABS: Basophils Percent Auto 0.5 % (0.2-1.2); Eosinophils Absolute Auto 0.1 K/mm3 (0-0.3); Eosinophils Percent Auto 1.7 % (0-4.4); Hematocrit 28.2 % (37.0-47.0); Hemoglobin 8.8 g/dL (12.0-15.0); Immature Granulocyte Absolute 0.03 K/mm3 (0.00-0.031); Immature Granulocyte Percent A 0.5 % (0-0.5); Lymphocytes Absolute Auto 1.48 K/mm3 (0.9-3.2); Lymphocytes Percent Auto 22.6 % (18.3-44.2); Mean Corpuscular HGB Conc 31.2 g/dl (32-36); Mean Corpuscular Hemoglobin 26.3 pg (26-34); Mean Corpuscular Volume 84.2 fl (80-100); Mean Platelet Volume 10.8 fl (7.4-10.4); Monocytes Absolute Auto 0.6 K/mm3 (0.1-0.6); Monocytes Percent Auto 9.2 % (2.6-8.5); Neutrophils Absolute Auto 4.3 K/mm3 (1.3-6.7); Neutrophils Percent Auto 65.5 % (45.5-73.1); Platelet Count Result 227 k/mm3 (150-375); Red Blood Count 3.35 M/mm3 (4.2-5.4); Red Cell Distribution Width 14.9 % (11.5-14.5); White Blood Count 6.6 K/mm3 (4.5-10.0)
[2020-01-14] MEDS: PHENYTOIN SODIUM INJ 100 MG/2 ML VIAL (*BKC) IV PUSH ×3 (05:02→21:43)
[2020-01-14 05:06] LABS: INR 1.2; Prothrombin Time 14.8 Seconds (11.1-14.7)
[2020-01-14 05:18] LABS: Alanine Aminotransferase 16 U/L (4-35); Albumin Level 3.3 g/dL (3.5-5.1); Alkaline Phosphatase 77 U/L (38-126); Aspartate Amino Transferase 25 U/L (14-36); Bilirubin,Total 0.4 mg/dL (0.2-1.3); Calcium 7.8 mg/dL (8.4-10.2); Carbon Dioxide 24 mmol/L (22-30); Chloride 108 mmol/L (98-107); Estimated CRCL calculation 155 ml/min; Estimated Glomerular Filt Rate > 60; Glucose 88 mg/dL (65-105); Potassium 3.3 mmol/L (3.4-5.0); Sodium 136 mmol/L (137-145)
[2020-01-14 05:21] LABS: Partial Thromboplastin Time < 20.0 SECONDS (22.3-36.8)
[2020-01-14 05:43] LABS: Blood Urea Nitrogen < 2 mg/dL (7-17)
[2020-01-14] MEDS: CHLORHEXIDINE GLUCONATE 4% SOL 120 ML BTL 1 APPLIC TOPICAL (07:15)
[2020-01-14] MEDS: LACTATED RINGERS 1,000 ML 30 ML IV CONT (08:20)
--- NOTE | 2020-01-14 08:28 | WPDANESEFPP ---
Anes - Eval Final PreProcedure Day of Procedure 01/14/20 08:28 Patient weight: morbidly obese Heart: regular rate and rhythm Lungs: clear to auscultation Airway: Mallampati scale class II Neurological: alert and oriented Last oral intake: >/= 8 hours ASA classification: III Emergent: no Anesthetic plan: proceed Anesthesia type and monitoring: general ETT and standard monitoring Informed Consent: The patient's anesthetic plan and its attendant risks and benefits were discussed with the patient/family/POA. Questions were solicited and answers provided to the satisfaction of the patient/family/POA.
[2020-01-14] MEDS: MIDAZOLAM HCL 2 MG/2 ML VIAL IV PUSH (08:30)
--- NOTE | 2020-01-14 08:59 | SUR.PREOP ---
pt voided per bed monreal/approx 30ml clear yellow urine
[2020-01-14] MEDS: BUPIVACAINE/EPINEPHRINE 0.5% 30 ML VIAL INFILTRATE (09:53)
--- NOTE | 2020-01-14 10:42 | PM.PROC ---
Procedure Note - Detailed Date of procedure: 01/14/20 Pre-op diagnosis: Right upper quadrant pain w/ nausea and vomiting+ Chronic cholecystitis Post-op diagnosis: same Procedure performed: Laparoscopic cholecystectomy Description of procedure: The patient was taken to surgery and induced into general anesthesia. The abdomen was prepped and draped. Trocars were placed in the usual fashion using 0.5% Marcaine with epinephrine and applied Medical optical trocars. A 5 millimeter camera was used. The gallbladder was decompressed with a laparoscopic aspirator. The cholecystotomy was closed with a Vicryl endo-loop. The gallbladder was retracted anterosuperiorly. The lateral segment of the left lobe of the liver wrapped around and obscured the cholecystohepatic triangle. I had to place an extra 5 mm port in the left mid abdomen so that this lateral segment could be retracted. This helped with exposure of the triangle of Calot. Traction was placed on the infundibulum. The cystic duct and cystic artery were dissected out very clearly. The gallbladder was dissected off the liver at its lower 3rd. Critical view was achieved. We securely clipped and divided the cystic duct and cystic artery. The gallbladder was then further retracted so that the peritoneal attachments to the liver could be divided. Once the gallbladder was freed entirely, it was placed in an Endo-Catch bag and retrieved through the 10 11 epigastric trocar site. The epigastric trocar was then replaced. We reviewed the right upper quadrant. It was irrigated and suctioned. All looked good with no evidence of bleeding or bile leakage. We evacuated CO2 and removed the trocar sleeves. Skin wounds were closed with subcuticular 4 O Monocryl skin suture. The wounds were dressed with Exofin surgical adhesive. Patient was awakened and taken to recovery in good condition. Sponge and needle counts were correct x2. Anesthesia: GETA and local (0.5% Marcaine with epinephrine) Surgeon: Sonido Keyes MD Hot Metal Car Operator: Matteo MARCOS Estimated blood loss (mL): 5 Drains: No Packing: No Pathology: yes (Gallbladder) Complications: None Condition: stable Disposition: PACU Findings: Chronic inflammation, no gallstones noted. No biliary ductal dilatation, no liver abnormalities.
--- NOTE | 2020-01-14 11:03 | SUR.PHASEI ---
01/14/2020 1040- SEIZURE PADS ON BED. WALL SUCTION AVAILABLE IF NEEDED.
--- NOTE | 2020-01-14 11:05 | SUR.PHASEI ---
01/14/2020 1105- DR. CANDELARIA CALLING SPOUSE FROM PACU.
--- NOTE | 2020-01-14 11:51 | SUR.PHASEI ---
1135- SPOUSE CALLED W/UPDATE
[2020-01-14] MEDS: LACTATED RINGERS 1,000 ML 100 ML IV CONT ×2 (12:01→21:44)
[2020-01-14] MEDS: VALPROIC ACID INJ 500 MG in DEXTROSE 5% 100 ML 100 MG IVPB ×3 (12:01→23:28)
[2020-01-14] MEDS: levETIRAcetam 1500MG/NACL100ML 1,500 MG/100 ML BAG 400 MG IVPB ×2 (12:04→20:00)
--- NOTE | 2020-01-14 12:43 | WPDINTPN ---
Progress Note: A&P Assessment and Plan (1) Seizure disorder: Code(s): G40.909 - Epilepsy, unspecified, not intractable, without status epilepticus Status: Chronic Assessment and Plan: Acute seizure disorder, given history of seizures but had not been taking her medications due to nausea and vomiting - patient was transferred on on 01/13/2020 and returned later that evening after having a seizure on the medical floor. Patient is only on Keppra IV which is her home medication. Patient is not able to tolerate the p.o. seizure medications that she takes at home secondary to nausea and vomiting -patient on p.r.n. Ativan, added valproic acid scheduled along with IV Keppra -will discuss with neurology -EEG was done on 01/13/2020 (2) Cholecystitis: Code(s): K81.9 - Cholecystitis, unspecified Status: Acute Assessment and Plan: Patient with persistent right upper quadrant pain -01/10/2020: Right upper quadrant ultrasound: Normal RUQ ultrasound -01/11/2020: HIDA scan: Normal examination -01/11/2020: CT abdomen and pelvis with contrast: Shows interval development of severe marty portal edema, some pericholecystic and perihepatic fluid. Consider acute hepatitis, cholangitis, pancreatitis. -LFTs in normal limits, total bilirubin <0.1 -given persistent right upper quadrant pain, nausea and vomiting, surgery was consulted, patient may have acute cholecystitis, patient cholecystectomy today on 01/14/2020 -continue Zosyn (3) Nausea & vomiting: Qualifiers: Vomiting Intractability: unspecified Vomiting type: unspecified Qualified Code(s): R11.2 - Nausea with vomiting, unspecified Code(s): R11.2 - Nausea with vomiting, unspecified Status: Acute Assessment and Plan: Patient with persistent nausea, only able to keep clear liquids. -continue p.r.n. antiemetics (4) Obesity (BMI 30.0-34.9): Code(s): E66.9 - Obesity, unspecified Status: Acute Assessment and Plan: Patient with history of sleeve gastrectomy, follows up with GI (5) Anxiety: Code(s): F41.9 - Anxiety disorder, unspecified Status: Chronic Assessment and Plan: History of anxiety (6) Depression: Qualifiers: Depression Type: unspecified Qualified Code(s): F32.9 - Major depressive disorder, single episode, unspecified Code(s): F32.9 - Major depressive disorder, single episode, unspecified Status: Chronic Assessment and Plan: History of depression (7) DVT prophylaxis: Code(s): Z29.9 - Encounter for prophylactic measures, unspecified Status: Acute Assessment and Plan: SCDs (8) Gastric ulcer: Qualifiers: Gastric ulcer chronicity: acute Gastric ulcer complication status: without hemorrhage or perforation Qualified Code(s): K25.3 - Acute gastric ulcer without hemorrhage or perforation Code(s): K25.9 - Gastric ulcer, unspecified as acute or chronic, without hemorrhage or perforation Status: Acute Assessment and Plan: Gastric ulcer at the site of anastomosis from previous sleeve gastrectomy. -continue Protonix infusion, GI following the patient Additional Plan Discussed with patient updated with her condition and plan of care. Patient is aware that she will be getting a cholecystectomy today. Code status: Full code Critical care time spent: 34 minutes Due to a high probability of clinically significant, life threatening deterioration, the patient required my highest level of preparedness to intervene emergently and I personally spent this critical care time directly and personally managing the patient. This critical care time included obtaining a history; examining the patient; pulse oximetry; ordering and review of studies; arranging urgent treatment with development of a management plan; evaluation of patient's response to treatment; frequent reassessment; and discussions with other providers. It w
--- NOTE | 2020-01-14 12:59 | WPDGIPROGNO ---
Progress Note: A&P Additional Plan Patient now status post lap choly. Developed ongoing right-sided abdominal pain CAT scan suggested inflammation in the right periportal area. Status post recent seizure. Physical exam reveals patient to be alert. Afebrile. Anicteric. Lungs are clear. Heart without murmur. Abdomen is soft with incisional tenderness. Labs reveal normal right upper quadrant ultrasound normal HIDA scan. CT scan with periportal inflammation. LFTs have remained normal. Surgical description identified. Chronic inflammation does noted. Impression 1. Status post lap choly. Chronic inflammation in the area around the gallbladder. Final histology Pending. 2. Anastomotic ulcer. At site of previous gastric bypass. She has history of recent bleeding which is now resolved. This could have contributed to some of her discomfort. Plan is to continue PPIs. Avoid nonsteroidal anti-inflammatory agents. Follow-up EGD in 2 months advised. 3. Seizure disorder. Patient has had several seizures. Likely related to not taking her anti seizure medicines with recent pain and vomiting. Subjective Date/time seen: 01/14/20 13:00 Objective Data Vital Signs Vital Signs: Vital Signs - 24 hr 01/13/20 14:00 01/13/20 16:00 01/13/20 20:00 Temperature 36.6 C 36.6 C Pulse Rate 67 68 70 Respiratory Rate 12 14 20 Blood Pressure 119/63 119/92 H 144/79 H Pulse Oximetry 96 100 100 01/13/20 22:19 01/13/20 22:37 01/14/20 00:00 Temperature 36.6 C Pulse Rate 96 100 62 Respiratory Rate 161 H 22 H 18 Blood Pressure 142/94 H 123/68 130/80 Pulse Oximetry 94 100 01/14/20 01:00 01/14/20 02:00 01/14/20 04:00 Temperature 36.6 C Pulse Rate 62 72 78 Respiratory Rate 18 20 14 Blood Pressure 119/71 130/74 127/66 Pulse Oximetry 100 100 97 01/14/20 06:00 01/14/20 08:13 01/14/20 10:39 Temperature 36.8 C Pulse Rate 81 71 82 Respiratory Rate 16 16 21 H Blood Pressure 125/75 134/65 127/63 Pulse Oximetry 98 96 99 01/14/20 10:54 01/14/20 11:09 01/14/20 11:13 Temperature Pulse Rate 70 69 Respiratory Rate 15 14 Blood Pressure 132/64 122/62 Pulse Oximetry 99 97 97 01/14/20 11:24 01/14/20 12:00 01/14/20 12:52 Temperature 36.6 C Pulse Rate 71 100 66 Respiratory Rate 14 15 14 Blood Pressure 117/59 L 136/64 Pulse Oximetry 92 99 01/14/20 12:53 Temperature Pulse Rate 73 Respiratory Rate 15 Blood Pressure 136/64 Pulse Oximetry 99 Intake/Output Intake/Output: Intake & Output 01/11/20 01/12/20 01/13/20 01/14/20 23:59 23:59 23:59 23:59 Intake Total 3050 2780 2380 855 Output Total 1850 2900 800 Balance 3050 930 -520 55 Meds/Results Medications: Active Medications Generic Name Dose Route Start Last Admin Trade Name Freq PRN Reason Stop Dose Admin Acetaminophen 500 mg 01/13/20 13:42 01/13/20 17:42 Tylenol Tablet PO 500 mg Q6H PRN Administration Mild Pain (1-3) or Fever Aripiprazole 5 mg 01/13/20 21:00 01/13/20 20:33 Abilify PO 5 mg HS SANA Administration Enoxaparin Sodium 40 mg 01/15/20 09:00 Lovenox SUB-Q DAILY SANA Fluoxetine HCl 20 mg 01/15/20 09:00 Prozac PO DAILY SANA Hydromorphone HCl 1 mg 01/13/20 13:42 01/14/20 12:55 Dilaudid Inj IV PUSH 1 mg Q2H PRN Administration Pain Rated 7-10 Hydromorphone HCl 0.5 mg 01/13/20 13:42 Dilaudid Inj IV PUSH Q2H PRN Pain Rated 4-6 Levetiracetam 1,500 mg in 100 mls @ 400 mls/hr 01/10/20 09:00 01/14/20 12:49 Keppra Iv IVPB Infused Q12HR SANA Infusion Pantoprazole Sodium 80 mg/ 500 mls @ 50 mls/hr 01/12/20 01:30 01/14/20 12:44 Dextrose IV CONT 50 mls/hr .Q10H SANA Administration Valproate Sodium 500 mg/ 105 mls @ 100 mls/hr 01/14/20 08:00 01/14/20 12:45 Dextrose IVPB Infused Q8H SANA Infusion Lactated Ringer's 1,000 mls @ 100 mls/hr 01/14/20 11:37 01/14/20 12:01 Lr - Lactated Ringers Iv IV CONT 100 m
[2020-01-14] MEDS: PROMETHAZINE HCL 25 MG/ML AMPUL 12.5 MG IV PUSH ×2 (14:17→23:27)
--- NOTE | 2020-01-14 16:27 | PM.IMPN ---
Progress Note: A&P Assessment and Plan (1) Seizure disorder: Code(s): G40.909 - Epilepsy, unspecified, not intractable, without status epilepticus Status: Chronic Assessment and Plan: Patient having prolonged seizures. She has been missing her medication because of the nausea and vomiting. EEG has been performed with results pending. Appreciate neurology input. Continue Dilantin, Keppra and valproic acid IV. (2) Nausea & vomiting: Qualifiers: Vomiting Intractability: unspecified Vomiting type: unspecified Qualified Code(s): R11.2 - Nausea with vomiting, unspecified Code(s): R11.2 - Nausea with vomiting, unspecified Status: Acute Assessment and Plan: Persistent n/v but patient with recent cholecystectomy. Continue antiemetics. Will continue to monitor for now. Hopefully this will resolve as her pain resolves. (3) Intractable right upper quadrant abdominal pain: Code(s): R10.11 - Right upper quadrant pain Status: Acute Assessment and Plan: Patient has ahd a RUQ ultrasound showing no gallstones or other pathology seen. HIDA scan normal. Repeat CT A/P showing some pericholecystic fluid. EGD revealed small gastric ulcer which could be etiology of her symptoms also. Patient seen by GenSurg and now POD #0 from Lap Chol. GB appeared to have chronic inflammation. Will monitor to see if this improves her symptoms. (4) Gastric ulcer: Qualifiers: Gastric ulcer chronicity: acute Gastric ulcer complication status: without hemorrhage or perforation Qualified Code(s): K25.3 - Acute gastric ulcer without hemorrhage or perforation Code(s): K25.9 - Gastric ulcer, unspecified as acute or chronic, without hemorrhage or perforation Status: Acute Assessment and Plan: EGD on 01/10/2020 showing acute gastric ulcer at the anastomosis site. Patient history of gastric bypass surgery. Continue Protonix IV. Appreciate GI input. (5) Anemia: Code(s): D64.9 - Anemia, unspecified Status: Acute Assessment and Plan: Iron studies compatible with Fe def and could be acute blood loss anemia. Hgb in the 8-9 range and has been stable. Continue to monitor. Start iron when her n/v has resolved. (6) Anxiety: Code(s): F41.9 - Anxiety disorder, unspecified Status: Chronic Assessment and Plan: Anxioloytic medications available as needed. (7) Depression: Qualifiers: Depression Type: unspecified Qualified Code(s): F32.9 - Major depressive disorder, single episode, unspecified Code(s): F32.9 - Major depressive disorder, single episode, unspecified Status: Chronic Assessment and Plan: Stable mood. Her Topamax, Trileptal, Abilify, Dilantin and Prozac have been resumed. (8) DVT prophylaxis: Code(s): Z29.9 - Encounter for prophylactic measures, unspecified Status: Acute Assessment and Plan: Lovenox Subjective Date/time seen: 01/14/20 16:27 Interval history: Date of visit 01/13. 24y/o female with hx of sz here for abdominal pain and vomiting. Assuming care. Chart reviewed. Patient back from cholecystectomy. She is still having nausea and vomiting. Her crampy abdominal pain is better but abdomen feels sore. No chest pain. Exam Narrative: Exam Narrative: AF 129/75 114 19 100% Gen - NARD sitting up in bed Chest - CTA bilaterally, nml RR CV - RRR S1/S2; Tele showing no significant dysrhythmias Abd - soft, obese, +BS, incisions are clean, dry and intact. Ext - no pedal edema Neuro - alert and cooperative; no focal deficits Objective Data Vital Signs Vital Signs: Vital Signs - 24 hr 01/13/20 20:00 01/13/20 22:19 01/13/20 22:37 Temperature 97.9 F Pulse Rate 70 96 100 Respiratory Rate 20 161 H 22 H Blood Pressure 144/79 H 142/94 H 123/68 Pulse Oximetry 100 94 01/14/20 00:00 01/14/20 01:00 01/14/20 02:00 Brenda
[2020-01-14] MEDS: OXcarbazepine 300 MG TABLET PO (19:59)
[2020-01-14] MEDS: ARIPIPRAZOLE 5 MG TABLET PO (19:59)
[2020-01-14] MEDS: TOPIRAMATE 100 MG TABLET PO (19:59)
[2020-01-15] VITALS (14 sets, daily range): BP systolic 91–143; BP diastolic 50–86; PULSE 63–95; RESP 14–18; TEMP 36.2–36.9; O2SAT 98–100; BMI 42.5
[2020-01-15] MEDS: ONDANSETRON INJ 4 MG/2 ML VIAL IV PUSH (04:37)
[2020-01-15] MEDS: HYDROMORPHONE HCL 1 MG/ML INJ IV PUSH (04:38)
[2020-01-15] MEDS: PHENYTOIN SODIUM INJ 100 MG/2 ML VIAL (*BKC) IV PUSH ×2 (04:38→13:54)
[2020-01-15] MEDS: PROPOFOL IV EMULSION 100 ML 3.5 MG IV CONT (06:02)
[2020-01-15] MEDS: SODIUM CHLORIDE 0.9% IV 500 ML IV CONT (06:04)
--- NOTE | 2020-01-15 06:09 | WPDPROCEDUR ---
Procedures Intubation Intubation Date: 01/15/20 Intubation Time: 06:09 Paralytic: rocuronium Mg given: 50 Laryngoscope: fiber optic video scope ET tube size: 7.5 Tube secured depth (cm): 23 Tube secured location: teeth Tube placement confirmation: visualized tube passing through cords, equal breath sounds bilaterally, no breath sounds over epigastrium and confirmation by capnometry Patient tolerated procedure: well Intubation complications: none Additional comments: Date of service was 01/15/2020 at 05:45 hrs.
--- NOTE | 2020-01-15 06:10 | PM.EVENT ---
Event Note Event Note Event Note: Rapid Response Note Called to bedside to evaluate this 24 year old female with known seizure disorder who suddenly started to have a tonic clonic seizure. The patient was unconscious and exhibiting diffuse violent shaking of her entire body. The patient was immediately given 10 mg of IV diazepam and placed on a nonrebreather. I applied nail bed pressure with a pen but she did not respond in any way to the stimuli. We briefly lost IV access as the patient's IV fell out. After approximately 10 minutes another IV was placed and the patient's seizing had not stopped or slowed down. Another 10 mg of IV Diazepam IV was given and I ordered a loading dose of IV Depacon to administer to the patient. The patient was administered IV Depacon and we decided to intubated the patient and place her on mechanical ventilation as she would not stop seizing and did not appear to be breathing well. She had audible wheezing and sounded like she was retching and might vomit. The patient was placed on IV Propofol for sedation and for her status epilepticus. Nursing will call Neurology for further recommendations. We will also upgrade the patient to ICU status. A/P Status Epilepticus Acute Respiratory Failure Total Critical Care time spent with this patient exceeded 32 minutes.
[2020-01-15] MEDS: VALPROIC ACID INJ 500 MG in DEXTROSE 5% 100 ML 100 MG IVPB (06:11)
[2020-01-15] MEDS: LACTATED RINGERS 1,000 ML 100 ML IV CONT (06:21)
--- NOTE | 2020-01-15 06:26 | PC.NURSE ---
PATIENT STATED THAT SHE DIDN'T FEEL WELL TO NURSING STAFF AND WAS GOING TO PASS OUT . PATIENT THEN WENT INTO A TONIC-CLONIC SEIZURE, STARTING AT 0515 AND LASTING FOR AROUND 40 MINUTES. HOSPITALIST WAS CALLED TO BEDSIDE. PATIENT WAS GIVEN 20MG VALIUM, 2000MG VALPROIC ACID AND A 500ML NS BOLUS OVER THE COURSE OF THE SEIZURE. HOSPITALIST DECIDED TO INTUBATE THE PATIENT TO PROTECT THE AIRWAY AND WAS STARTED ON PROPOFOL FOR SEDATION. CURRENTLY, PATIENT IS STABLE, WITH NO MORE SEIZURE ACTIVITY. PACHECO CATHETER, NG AND RESTRAINTS ARE IN PLACE. NEUROLOGY WAS UPDATED ON PATIENT'S CURRENT STATUS. WILL CONTINUE TO MONITOR PATIENT FOR CHANGES IN STATUS AND WILL FOLLOW CURRENT PLAN OF CARE.
[2020-01-15 06:58] LABS: Alanine Aminotransferase 26 U/L (4-35); Albumin Level 3.2 g/dL (3.5-5.1); Alkaline Phosphatase 76 U/L (38-126); Aspartate Amino Transferase 39 U/L (14-36); Bilirubin,Total 0.3 mg/dL (0.2-1.3); Calcium 7.9 mg/dL (8.4-10.2); Carbon Dioxide 20 mmol/L (22-30); Chloride 110 mmol/L (98-107); Estimated CRCL calculation 155 ml/min; Estimated Glomerular Filt Rate > 60; Glucose 93 mg/dL (65-105); Magnesium 1.9 mg/dL (1.6-2.3); Phosphorus 3.1 mg/dL (2.5-4.5); Potassium 3.7 mmol/L (3.4-5.0); Sodium 137 mmol/L (137-145)
[2020-01-15 07:06] LABS: Blood Urea Nitrogen < 2 mg/dL (7-17)
[2020-01-15 07:19] LABS: Basophils Percent Auto 0.4 % (0.2-1.2); Eosinophils Percent Auto 0.5 % (0-4.4); Hematocrit 29.3 % (37.0-47.0); Hemoglobin 8.6 g/dL (12.0-15.0); Immature Granulocyte Absolute 0.07 K/mm3 (0.00-0.031); Immature Granulocyte Percent A 0.8 % (0-0.5); Lymphocytes Absolute Auto 1.36 K/mm3 (0.9-3.2); Lymphocytes Percent Auto 16.5 % (18.3-44.2); Mean Corpuscular HGB Conc 29.4 g/dl (32-36); Mean Corpuscular Hemoglobin 25.7 pg (26-34); Mean Corpuscular Volume 87.5 fl (80-100); Mean Platelet Volume 11.2 fl (7.4-10.4); Monocytes Absolute Auto 0.8 K/mm3 (0.1-0.6); Monocytes Percent Auto 9.1 % (2.6-8.5); Neutrophils Percent Auto 72.7 % (45.5-73.1); Platelet Count Result 190 k/mm3 (150-375); Red Blood Count 3.35 M/mm3 (4.2-5.4); Red Cell Distribution Width 14.9 % (11.5-14.5); White Blood Count 8.3 K/mm3 (4.5-10.0)
[2020-01-15] MEDS: FUROSEMIDE INJ 40 MG/4 ML VIAL IV PUSH (08:21)
[2020-01-15 08:46] LABS: Alveolar/Arterial O2 Gradient 75.4 mmHg; Base Excess ABG -1.5 mEq/l (+/-2.0); Fractional Inspired Oxygen 30 %; HCO3 ABG 22.9 mEq/l (22.0-26.0); Oxygen Content ABG 13.9 %vol (16.0-22.0); Oxygen Saturation ABG 97.3 % (95.0-100.0); Oxyhemoglobin 95.7 % THb (90.0-100.0); PCO2 ABG 37.1 mmHg (35.0-45.0); PO2 ABG 94.9 mmHg (80.0-100.0); PO2 FiO2 Ratio Arterial Blood 3.16 %; Total Hemoglobin 10.2 g/dL (12.0-18.0); pH ABG 7.408 (7.350-7.450)
[2020-01-15 08:47] LABS: Arterial Blood Gas PEEP 5 cmH2O; Arterial Blood Gas Vent Mode CMV; Arterial Blood Gas Ventilator rate 15 /MIN; Device VENTILATOR; Modified Allen's Test Pass; Site Drawn LEFT RADIAL
[2020-01-15 08:48] LABS: Arterial Blood Gas Tidal Volume 400 ml
[2020-01-15] MEDS: FLUOXETINE HCL 20 MG CAP PO (09:06)
[2020-01-15] MEDS: OXcarbazepine 300 MG TABLET PO ×2 (09:06→19:43)
[2020-01-15] MEDS: ENOXAPARIN 40 MG/0.4 ML SYRINGE SUB-Q (09:06)
[2020-01-15] MEDS: TOPIRAMATE 100 MG TABLET PO ×2 (09:06→19:44)
[2020-01-15] MEDS: levETIRAcetam 1500MG/NACL100ML 1,500 MG/100 ML BAG 200 MG IVPB ×2 (09:17→19:43)
--- NOTE | 2020-01-15 09:25 | P.PNAN_ITS ---
Anes - Prog Note Post-Op Date/Time: 01/15/20 09:25 Cardiovascular status: normal Respiratory status: normal Airway patency: baseline Mental status: baseline Post-Op hydration status: normal Vital Signs: Last Vital Signs Temp 36.9 C 01/15/20 00:00 Pulse 91 01/15/20 08:00 Resp 18 01/15/20 00:00 BP 143/86 H 01/15/20 00:00 Pulse Ox 100 01/15/20 08:00 I/O: Intake & Output 01/14/20 01/15/20 01/15/20 23:59 07:59 15:59 Intake Total 2591 2004 Output Total 1100 2200 Balance 1491 -195 Laboratory Tests 01/15/20 06:38 01/15/20 06:38 01/15/20 01/15/20 01/15/20 06:38 06:38 08:39 WBC 8.3 RBC 3.35 L Hgb 8.6 L Hct 29.3 L MCV 87.5 MCH 25.7 L MCHC 29.4 L RDW 14.9 H Plt Count 190 MPV 11.2 H Immature Gran % (Auto) 0.8 H Neut % (Auto) 72.7 Lymph % (Auto) 16.5 L [place] % (Auto) 9.1 H Eos % (Auto) 0.5 Baso % (Auto) 0.4 Lymph # (Auto) 1.36 [place] # (Auto) 0.8 H Eos # (Auto) 0.0 Baso # (Auto) 0.0 Abs Immat Gran (auto) 0.07 H Absolute Neuts (auto) 6.0 Absolute Nucleated RBC 0.0 Nucleated RBC % 0.0 Puncture Site Left radial ABG pH 7.408 ABG pCO2 37.1 ABG pO2 94.9 ABG PO2/FiO2 Ratio 3.16 ABG HCO3 22.9 ABG O2 Saturation 97.3 ABG O2 Content 13.9 L ABG Base Excess -1.5 A-a Gradient 75.4 Oxyhemoglobin 95.7 Total Hemoglobin 10.2 L O2 Delivery Device Ventilator O2 Liters/Min Not Reportable Minute Volume Not Reportable Vent Rate 15 Vent Mode Cmv FiO2 30 Tidal Volume 400 PEEP 5 Peak Inspir Pressure Not Reportable Pressure Support Not Reportable Sodium 137 Potassium 3.7 Chloride 110 H Carbon Dioxide 20 L BUN < 2 L Creatinine 0.60 L Estim Creat Clear Calc 155 Estimated GFR > 60 Glucose 93 Calcium 7.9 L Phosphorus 3.1 Magnesium 1.9 Total Bilirubin 0.3 AST 39 H ALT 26 Alkaline Phosphatase 76 Total Protein 6.0 L Albumin 3.2 L Post-procedural complaints: none Patient Feedback: Patient satisfied with anesthetic care.
--- NOTE | 2020-01-15 10:41 | WPDGIPROGNO ---
Progress Note: A&P Additional Plan Patient now on ventilator. Intubated because of prolonged seizure activity yesterday. Physical exam reveals her to be sedated on the ventilator. Lungs are clear. Heart without murmur. Abdomen is obese soft in nontender. Incisional tenderness after lap choly yesterday. Impression 1. Seizure disorder. Recurrent seizures noted. Neurology now following. Likely related to not taking medications with her abdominal problems. 2. Ventilator. Required ventilator because of respiratory difficulties with prolonged seizure activity yesterday. Now on the in ICU service per 3. Anastomotic ulcer. This is located at the site of previous gastric bypass surgery. No additional bleeding noted. Her hemoglobin is remaining stable at this time. Likely contributed to some degree to her abdominal pain at time of admission. Plan to avoid nonsteroidal anti-inflammatory agents continue Protonix. 4. Status post cholecystectomy. Chronic inflammation noted at the time surgery. Final histology report pending. This also contributed to her right upper quadrant abdominal pain prompting admission to the hospital per Subjective Date/time seen: 01/15/20 10:41 Objective Data Vital Signs Vital Signs: Vital Signs - 24 hr 01/14/20 10:54 01/14/20 11:09 01/14/20 11:13 Temperature Pulse Rate 70 69 Respiratory Rate 15 14 Blood Pressure 132/64 122/62 Pulse Oximetry 99 97 97 01/14/20 11:24 01/14/20 12:00 01/14/20 12:52 Temperature 36.6 C Pulse Rate 71 70 66 Respiratory Rate 14 15 14 Blood Pressure 117/59 L 136/64 Pulse Oximetry 92 99 01/14/20 12:53 01/14/20 13:01 01/14/20 14:00 Temperature Pulse Rate 73 77 85 Respiratory Rate 15 15 14 Blood Pressure 136/64 125/95 H Pulse Oximetry 99 99 99 01/14/20 16:00 01/14/20 18:00 01/14/20 20:00 Temperature 36.9 C 36.9 C Pulse Rate 79 114 H 80 Respiratory Rate 13 19 15 Blood Pressure 127/71 129/75 137/84 Pulse Oximetry 100 100 100 01/15/20 00:00 01/15/20 06:05 01/15/20 08:00 Temperature 36.9 C 36.9 C Pulse Rate 65 91 90 Respiratory Rate 18 15 Blood Pressure 143/86 H 132/65 Pulse Oximetry 98 98 100 Intake/Output Intake/Output: Intake & Output 01/12/20 01/13/20 01/14/20 01/15/20 23:59 23:59 23:59 23:59 Intake Total 2780 2380 3446 2004 Output Total 1850 2900 3050 2200 Balance 930 520 396 -195 Meds/Results Medications: Active Medications Generic Name Dose Route Start Last Admin Trade Name Freq PRN Reason Stop Dose Admin Acetaminophen 500 mg 01/13/20 13:42 01/13/20 17:42 Tylenol Tablet PO 500 mg Q6H PRN Administration Mild Pain (1-3) or Fever Aripiprazole 5 mg 01/13/20 21:00 01/14/20 19:59 Abilify PO 5 mg HS SANA Administration Enoxaparin Sodium 40 mg 01/15/20 09:00 01/15/20 09:06 Lovenox SUB-Q 40 mg DAILY SANA Administration Fluoxetine HCl 20 mg 01/15/20 09:00 01/15/20 09:06 Prozac PO 20 mg DAILY SANA Administration Hydromorphone HCl 1 mg 01/13/20 13:42 01/15/20 04:38 Dilaudid Inj IV PUSH 1 mg Q2H PRN Administration Pain Rated 7-10 Hydromorphone HCl 0.5 mg 01/13/20 13:42 Dilaudid Inj IV PUSH Q2H PRN Pain Rated 4-6 Levetiracetam 1,500 mg in 100 mls @ 400 mls/hr 01/10/20 09:00 01/15/20 09:17 Keppra Iv IVPB 200 mls/hr Q12HR SANA Administration Pantoprazole Sodium 80 mg/ 500 mls @ 50 mls/hr 01/12/20 01:30 01/15/20 06:21 Dextrose IV CONT 50 mls/hr .Q10H SANA Administration Lactated Ringer's 1,000 mls @ 100 mls/hr 01/14/20 11:37 01/15/20 06:21 Lr - Lactated Ringers Iv IV CONT 100 mls/hr .Q10H SANA Administration Propofol 100 mls @ 17.415 mls/hr 01/15/20 05:55 01/15/20 06:15 Diprivan IV CONT 25 mcg/kg/min .Q5H45M SANA 17.4 mls/hr Titration Protocol 25 MCG/KG/MIN Valproate Sodium 1,000 mg/ 110 mls @ 100 mls/hr 01/15/20 12:00 Dextrose IVPB Q8H SANA Lorazepam 2 mg 01/13/20
[2020-01-15 11:12] LABS: Beta HCG Quantitative < 2.39 mIU/ML
--- NOTE | 2020-01-15 11:13 | WPDNEUROPN ---
Progress Note: A&P Assessment and Plan (1) Gastric ulcer: Qualifiers: Gastric ulcer chronicity: acute Gastric ulcer complication status: without hemorrhage or perforation Qualified Code(s): K25.3 - Acute gastric ulcer without hemorrhage or perforation Code(s): K25.9 - Gastric ulcer, unspecified as acute or chronic, without hemorrhage or perforation Status: Acute (2) DVT prophylaxis: Code(s): Z29.9 - Encounter for prophylactic measures, unspecified Status: Acute (3) Cholecystitis: Code(s): K81.9 - Cholecystitis, unspecified Status: Acute (4) Anemia: Code(s): D64.9 - Anemia, unspecified Status: Acute (5) Obesity (BMI 30.0-34.9): Code(s): E66.9 - Obesity, unspecified Status: Acute (6) Anxiety: Code(s): F41.9 - Anxiety disorder, unspecified Status: Chronic (7) Depression: Qualifiers: Depression Type: unspecified Qualified Code(s): F32.9 - Major depressive disorder, single episode, unspecified Code(s): F32.9 - Major depressive disorder, single episode, unspecified Status: Chronic (8) Seizure disorder: Code(s): G40.909 - Epilepsy, unspecified, not intractable, without status epilepticus Status: Chronic (9) Intractable right upper quadrant abdominal pain: Code(s): R10.11 - Right upper quadrant pain Status: Acute (10) Nausea & vomiting: Qualifiers: Vomiting Intractability: unspecified Vomiting type: unspecified Qualified Code(s): R11.2 - Nausea with vomiting, unspecified Code(s): R11.2 - Nausea with vomiting, unspecified Status: Acute (11) Patient denies significant medical history: Status: Acute Additional Plan status epilepticus inspite of multiple med ,description of seizure noted when gradually comes off sedation will treat with valium only im discussed with dr Persaud Review of Systems Review of Systems: All systems reviewed & are unremarkable except as noted in HPI and below Exam Const: General: patient obtunded Nutritional Appearance: obese Orientation/consciousness: Other orientation findings (sedated) HENMT: Head: normal to inspection Eyes: Periorbital: periorbital findings normal Eyelids: eyelids normal Conjunctivae: conjunctivae normal Sclera: sclerae normal Cornea: corneas normal Pupils: Dilated pupils Neck: Neck: full ROM Resp: Auscultation: rhonchi Cardio: Rate: regular rate Rhythm: regular rhythm GI: Auscultation: normal bowel sounds Skin: General skin exam: no rashes or lesions noted Neuro: Cranial nerves: Yes Nystagmus not present Pupils: Dilated: bilateral Extrem: General: normal to inspection Objective Data Vital Signs Vital Signs: Vital Signs - 24 hr 01/14/20 11:24 01/14/20 12:00 01/14/20 12:52 Temperature 36.6 C Pulse Rate 71 70 66 Respiratory Rate 14 15 14 Blood Pressure 117/59 L 136/64 Pulse Oximetry 92 99 01/14/20 12:53 01/14/20 13:01 01/14/20 14:00 Temperature Pulse Rate 73 77 85 Respiratory Rate 15 15 14 Blood Pressure 136/64 125/95 H Pulse Oximetry 99 99 99 01/14/20 16:00 01/14/20 18:00 01/14/20 20:00 Temperature 36.9 C 36.9 C Pulse Rate 79 114 H 80 Respiratory Rate 13 19 15 Blood Pressure 127/71 129/75 137/84 Pulse Oximetry 100 100 100 01/15/20 00:00 01/15/20 06:05 01/15/20 08:00 Temperature 36.9 C 36.9 C Pulse Rate 65 91 90 Respiratory Rate 18 15 Blood Pressure 143/86 H 132/65 Pulse Oximetry 98 98 100 Intake/Output Intake/Output: Intake & Output 01/12/20 01/13/20 01/14/20 01/15/20 23:59 23:59 23:59 23:59 Intake Total 2780 2380 3446 2005 Output Total 1850 2900 3050 2200 Balance 473 -710 093 -565 Meds/Results Medications: Active Medications Generic Name Dose Route Start Last Admin Trade Name Freq PRN Reason Stop Dose Admin Acetaminophen 500 mg 01/13/20 13:42 01/13/20 17:42 Tylenol Tablet PO 500 mg Q6H PRN Administratio
--- NOTE | 2020-01-15 11:14 | PCDIET ---
ICU Rounding Note: Patient intubated overnight for seizure activity. NG in place POD #1 s/p lap cholecystectomy. MD to discuss tube feedings with surgery. Last recorded weight is 116.1kg which is stable. Bowel Motility: Last documented BM on 01/11/20. Labs Reviewed: Hgb (8.6), Hct (29.3), BUN (2), Cr (0.6), Alb (3.2), [place] Ca (8.54) Meds Noted: LR at 100mL/hr, Pantoprazole, IV Dilantin, Propofol Additional Notes: Abdomen with surgical incision, but no reported pressure ulcers. Propofol infusing at 17.4mL/hr which provides 459kcal over 24 hour period. If able to initiate enteral feedings, recommend Vital 1.2 at goal rate of 45mL/hr x 22 hours/day for 1188kcal (1647kcal with Propofol at current rate), 74g protein and 802mL free water. Recommend 30mL water flush every 4 hours and tapering IV fluids as tube feeding advances. Following daily in ICU rounds. Assessing/reassessing every 3 days.
--- NOTE | 2020-01-15 11:18 | WPDINTPN ---
Progress Note: A&P Assessment and Plan (1) Acute respiratory failure: Code(s): J96.00 - Acute respiratory failure, unspecified whether with hypoxia or hypercapnia Status: Acute Assessment and Plan: Patient was intubated on 01/15/2020 on the morning which she had seizure activity and was unable to protect her airway, it was decided to intubate her in her best interest. -patient remains on CMV mode of ventilation on 30% FiO2 and peep of 5 -chest x-ray and ABGs reviewed, -patient is being transferred to a tertiary continues EEG monitoring, will keep patient intubated for now -on propofol for sedation, maintain RASS of 0 to -2, daily sedation vacation (2) Seizure disorder: Code(s): G40.909 - Epilepsy, unspecified, not intractable, without status epilepticus Status: Chronic Assessment and Plan: Acute seizure disorder, given history of seizures but had not been taking her medications due to nausea and vomiting -currently on Keppra 1500 IV mg q.12 hours, Dilantin 100 mg IV q.8 hours. Valproic acid 1000 mg IV q.8 hours -p.r.n. Ativan -neurology following the patient -given patient has had seizure activity 3 nights in a row, this of suspicion for pseudo seizure activity. Patient will require continuous EEG monitoring. -discussed with , patient has been accepted [facility], awaiting bed placement -discussed with neurology -EEG was done on 01/13/2020: Mildly abnormal record due to the presence of excessive amount of theta activity and occasional delta activity in addition to the sharp element. Clinical correlation recommended. These abnormalities could be suggestive of underlying organic or metabolic encephalopathy or seizure disorder. (3) Cholecystitis: Code(s): K81.9 - Cholecystitis, unspecified Status: Acute Assessment and Plan: Patient with persistent right upper quadrant pain -01/10/2020: Right upper quadrant ultrasound: Normal RUQ ultrasound -01/11/2020: HIDA scan: Normal examination -01/11/2020: CT abdomen and pelvis with contrast: Shows interval development of severe marty portal edema, some pericholecystic and perihepatic fluid. Consider acute hepatitis, cholangitis, pancreatitis. -LFTs in normal limits, total bilirubin <0.1 - 01/14/2020 status post laparoscopic cholecystectomy -continue Zosyn (4) Nausea & vomiting: Qualifiers: Vomiting Intractability: unspecified Vomiting type: unspecified Qualified Code(s): R11.2 - Nausea with vomiting, unspecified Code(s): R11.2 - Nausea with vomiting, unspecified Status: Acute Assessment and Plan: Patient with persistent nausea, only able to keep clear liquids. -continue p.r.n. antiemetics (5) Obesity (BMI 30.0-34.9): Code(s): E66.9 - Obesity, unspecified Status: Acute Assessment and Plan: Patient with history of sleeve gastrectomy, follows up with GI (6) Anxiety: Code(s): F41.9 - Anxiety disorder, unspecified Status: Chronic Assessment and Plan: History of anxiety (7) Depression: Qualifiers: Depression Type: unspecified Qualified Code(s): F32.9 - Major depressive disorder, single episode, unspecified Code(s): F32.9 - Major depressive disorder, single episode, unspecified Status: Chronic Assessment and Plan: History of depression (8) DVT prophylaxis: Code(s): Z29.9 - Encounter for prophylactic measures, unspecified Status: Acute Assessment and Plan: SCDs (9) Gastric ulcer: Qualifiers: Gastric ulcer chronicity: acute Gastric ulcer complication status: without hemorrhage or perforation Qualified Code(s): K25.3 - Acute gastric ulcer without hemorrhage or perforation Code(s): K25.9 - Gastric ulcer, unspecified as acute or chronic, without hemorrhage or perforation Status: Acute Assessment and Plan: Gastric ulcer at the site of anastomosis from pre
[2020-01-15] MEDS: PROPOFOL IV EMULSION 100 ML 17.4 MG IV CONT ×2 (11:21→15:57)
--- NOTE | 2020-01-15 16:18 | PM.PNGS ---
Progress Note: A&P Assessment and Plan (1) Cholecystitis: Code(s): K81.9 - Cholecystitis, unspecified Status: Acute Assessment and Plan: POD#1 lap jose. Doing well from a post-op standpoint. Incisions look good today. Patient currently intubated and sedated to protect her airway following a prolonged seizure early this morning. Okay from a surgical standpoint to start tube feedings per the Mine Safety Engineer. Once she is medically stabilized and discharged from the tertiary care facility, would recommend follow-up in our office with a low fat diet and lifting restrictions of no more than 15-20 pounds x 2 weeks post-operatively. (2) Gastric ulcer: Qualifiers: Gastric ulcer chronicity: acute Gastric ulcer complication status: without hemorrhage or perforation Qualified Code(s): K25.3 - Acute gastric ulcer without hemorrhage or perforation Code(s): K25.9 - Gastric ulcer, unspecified as acute or chronic, without hemorrhage or perforation Status: Acute Assessment and Plan: Gastric ulcer near anastomosis found on EGD. Gastroenterology following. Currently on PPI therapy. (3) Seizure disorder: Code(s): G40.909 - Epilepsy, unspecified, not intractable, without status epilepticus Status: Chronic Assessment and Plan: Patient had a seizure early this morning for the 3rd night in a row. She was intubated to protect her airway during the prolonged seizure this morning. Initially felt that this was related to her being non-compliant with her home medications prior to admission from her nausea and vomiting. Currently on multiple anticonvulsants. Neurology has been consulted. Patient planning to be transferred to [facility] for continuous EEG monitoring, awaiting bed placement. (4) Anemia: Code(s): D64.9 - Anemia, unspecified Status: Acute Assessment and Plan: Stable. (5) Obesity (BMI 30.0-34.9): Code(s): E66.9 - Obesity, unspecified Status: Acute Additional Plan Discussed plan of care with Dr. Cooper. Subjective Subjective Date/Time Seen: 01/15/20 16:18 Post Op day: 1 (lap jose) Interval history: Patient intubated and sedated. Review of Systems Review of Systems: ROS unobtainable: Yes unobtainable due to medical condition Exam Const: General: no acute distress Nutritional Appearance: obese Limitations: other limitations (sedated/intubated) Resp: Effort & Inspection: normal respiratory effort Auscultation: clear to auscultation bilaterally Cardio: Rate: regular rate Rhythm: regular rhythm GI: Inspection: normal to inspection, non-distended and incision (abdominal incisions clean, dry, intact) GI Palp: Yes Soft to palpation, No Guarding due to palpation present (GI) and No Hernia present Auscultation: Hypoactive bowel sounds present Urinary Catheter: Urinary Catheter: patent and draining Skin: General skin exam: normal color Neuro: Other: Patient intubated and sedated. Exam limited due to this. Extrem: General: no clubbing, cyanosis or edema Objective Data Vital Signs Vital Signs: Vital Signs - 24 hr 01/14/20 18:00 01/14/20 20:00 01/15/20 00:00 Temperature 36.9 C 36.9 C Pulse Rate 114 H 80 65 Respiratory Rate 19 15 18 Blood Pressure 129/75 137/84 143/86 H Pulse Oximetry 100 100 98 01/15/20 06:05 01/15/20 08:00 01/15/20 11:15 Temperature 36.9 C Pulse Rate 91 90 91 Respiratory Rate 15 Blood Pressure 132/65 Pulse Oximetry 98 100 100 01/15/20 12:00 01/15/20 14:00 01/15/20 16:00 Temperature 36.9 C 36.2 C L Pulse Rate 78 79 63 Respiratory Rate 15 18 14 Blood Pressure 110/50 L 124/77 122/61 Pulse Oximetry 100 100 100 Intake/Output Intake/Output: Intake & Output 01/12/20 01/13/20 01/14/20 01/15/20 23:59 23:59 23:59 23:59 Intake Total 2780 2380 3446 3215 Output Total 1850 2900 3050 2200 Balance 930 -838 700 7941 Meds/Results Medications: Active Medications Generic Name Dose Route Start Last
--- NOTE | 2020-01-15 17:49 | PM.IMPN ---
Progress Note: A&P Assessment and Plan (1) Acute respiratory failure: Code(s): J96.00 - Acute respiratory failure, unspecified whether with hypoxia or hypercapnia Status: Acute Assessment and Plan: Patient with resp failure related to status epilepticus. Wean mechanical ventilation as tolerated. Appreciate solar sales ambassador input. (2) Seizure disorder: Code(s): G40.909 - Epilepsy, unspecified, not intractable, without status epilepticus Status: Chronic Assessment and Plan: Patient having frequent and more prolonged seizures. Last night patient developed status epilepticus lasting 30 minutes. She had missed her medications initally due to the n/v to explain the seizures but now, patient receiving IV Keppra, Dilatin and VPA and still having seizures. Discussed with solar sales ambassador. He agreed transfer would be appropriate. I discussed case with the Neuro ICU physician at [facility] who agreed to accept the patient in transfer. We are awaiting a bed placement. Discussed with patient's and he was updated. All questions were answered. (3) Nausea & vomiting: Qualifiers: Vomiting Intractability: unspecified Vomiting type: unspecified Qualified Code(s): R11.2 - Nausea with vomiting, unspecified Code(s): R11.2 - Nausea with vomiting, unspecified Status: Acute Assessment and Plan: Stable. Patient has NG tube in place now. (4) Intractable right upper quadrant abdominal pain: Code(s): R10.11 - Right upper quadrant pain Status: Acute Assessment and Plan: Patient has had a RUQ ultrasound showing no gallstones or other pathology seen. HIDA scan normal. Repeat CT A/P showing some pericholecystic fluid. EGD revealed small gastric ulcer which could be etiology of her symptoms also. Patient seen by GenSurg and now POD #1 from Lap Chol. GB appeared to have chronic inflammation. Continue routine postop care. (5) Gastric ulcer: Qualifiers: Gastric ulcer chronicity: acute Gastric ulcer complication status: without hemorrhage or perforation Qualified Code(s): K25.3 - Acute gastric ulcer without hemorrhage or perforation Code(s): K25.9 - Gastric ulcer, unspecified as acute or chronic, without hemorrhage or perforation Status: Acute Assessment and Plan: EGD on 01/10/2020 showing acute gastric ulcer at the anastomosis site. Patient history of gastric bypass surgery. Continue Protonix IV. Appreciate GI input. (6) Anemia: Code(s): D64.9 - Anemia, unspecified Status: Acute Assessment and Plan: Iron studies compatible with Fe def and could be acute blood loss anemia. Hgb in the 8-9 range and has been stable. Continue to monitor. Start iron when able (7) Anxiety: Code(s): F41.9 - Anxiety disorder, unspecified Status: Chronic Assessment and Plan: Anxioloytic medications available IV as needed. (8) Depression: Qualifiers: Depression Type: unspecified Qualified Code(s): F32.9 - Major depressive disorder, single episode, unspecified Code(s): F32.9 - Major depressive disorder, single episode, unspecified Status: Chronic Assessment and Plan: As above. Her Topamax, Trileptal, Abilify, Dilantin and Prozac have been resumed. (9) DVT prophylaxis: Code(s): Z29.9 - Encounter for prophylactic measures, unspecified Status: Acute Assessment and Plan: Lovenox Subjective Date/time seen: 01/15/20 1000 Interval history: Date of visit 01/14. 24y/o female with hx of sz here for abdominal pain and vomiting. Events reviewed with group reservations coordinator. Abraham had episode of status epilepticus with prolonged sx lasting 30 minutes. She was diaphoretic and unresponsive to pain. Diazepam given. She ultimately required intubation and sedation. She is unable to provide hx. Review of Systems Review of Systems: ROS unobtainable:
[2020-01-15] MEDS: ARIPIPRAZOLE 5 MG TABLET PO (19:22)
--- NOTE | 2020-01-15 21:24 | PC.NURSE ---
PATIENT DEPARTED VIA EMS TO [facility] ([id number]). REPORT WAS CALLED TO CESAR LEACH. PATIENT SENT WITH ALL BELONGINGS AND LIST CHECKED. PATIENT VITAL SIGNS STABLE AT TIME OF DISCHARGE.
--- NOTE | 2020-01-16 06:35 | PM.TDS ---
Transfer Discharge Sum: Prov Provider Date of admission: 01/13/20 10:22 Primary care physician: Bushra Lyman, Admitting clinician: Vaughn Jimenez MD Consults: 01/10/20 06:14 Consult to Physician Routine Comment: Dr Browning requested to be on list instead Consulting Provider: Jorge Browning call center coordinator/MD group to consult: Gastroenterology Reason for consultation: Abd pain Has provider been notified: Yes 01/13/20 Consult to Physician Routine Comment: Nany Villalba band maker spoke with Dr. Persaud Consulting Provider: Jocelyne Persaud call center coordinator/MD group to consult: dr manzano Reason for consultation: status eplipticus Has provider been notified: Yes Consult to Physician Routine Comment: OFFICE NOTIFIED OF CONSULT SPOKE WITH [place] Consulting Provider: Sonido Keyes call center coordinator/MD group to consult: Dr Cooper surgery Reason for consultation: symtomatic cholelethiasis Has provider been notified: Yes Consult to Physician Routine Comment: already notified and seen pt. Consulting Provider: Luis Manuel Gandhi call center coordinator/MD group to consult: dr yepez Reason for consultation: staus epilepticus Has provider been notified: Yes 01/13/20 03:14 Consult to Physician Routine Comment: CONTACTED BY [facility] Consulting Provider: Jocelyne Persaud call center coordinator/MD group to consult: Creative Writing English Professor Reason for consultation: ICU transfer Has provider been notified: Yes 01/13/20 03:41 Consult to Physician Routine Comment: CONTACTED BY [facility] Consulting Provider: Clemente Yepez call center coordinator/MD group to consult: Neurology - Dr. Yepez Reason for consultation: Prolonged Seizure Has provider been notified: Yes 01/15/20 06:26 Consult to Physician Routine Comment: Consulting Provider: Jocelyne Persaud call center coordinator/MD group to consult: Dr. Persaud Reason for consultation: ICU transfer Has provider been notified: Yes Attending physician on discharge: Rian Arguello Discharging clinician: Rian Arguello Anticipated date of transfer: 01/15/20 Receiving physician/facility: [facility] DS: Admitting Diagnosis Admitting Diagnosis Admitting Diagnosis: Right upper quadrant pain DS: Discharge Diagnosis Discharge Diagnosis (1) Seizure disorder: Code(s): G40.909 - Epilepsy, unspecified, not intractable, without status epilepticus Status: Chronic Assessment and Plan: Patient having frequent and prolonged seizures. She had been missing her medication because of the nausea and vomiting prior to admission. EEG showing mildly abnormal record due to the presence of excessive amount of theta activity and occasional delta activity in addition to the sharp element. These abnormalities could be suggestive of underlying organic or metabolic encephalopathy or seizure disorder. Despite starting Dilantin, Keppra and valproic acid IV, patient continued to have prolonged seizures. Her seizures have worsened to the point of requiring intubation and sedation on the evening of 01/14/20. Discussed the case with gse mechanic who agreed that patient may need continuous EEG monitoring. Discussed with [facility] neurointensivist who agreed to accept the patient in transfer. (2) Nausea & vomiting: Qualifiers: Vomiting Intractability: unspecified Vomiting type: unspecified Qualified Code(s): R11.2 - Nausea with vomiting, unspecified Code(s): R11.2 - Nausea with vomiting, unspecified Status: Acute Assessment and Plan: Persistent n/v but patient with recent cholecystectomy. Treated with antiemetics. (3) Intractable right upper quadrant abdominal pain: Code(s): R10.11 - Right upper quadrant pain Status: Acute Assessment and Plan: Patient has had a RUQ ultrasound showing no gallstones or other pathology seen. HIDA scan normal. Repeat CT A/P showing some pericholecystic fluid. EGD revealed small gastric ulcer which could be etiology of her symptoms also. Patient seen by [facility] and underwent
[2020-01-16 08:24] LABS: Levetiracetam Keppra 52.9 mcg/mL (12.0-46.0)
== END 2020-01-15 21:20 | disposition short-term general hospital (02) | DRG 356 ==
LOC: ANHED 01-10 00:19 → ANH3MEDSUR 01-10 00:34 → ANHICU 01-13 03:42 → ANH2MED 01-13 17:04 → ANHICU 01-14 00:19
PROVIDERS: Internal Medicine; Internal Medicine Gastroenterology; Surgery; Admitting Provider Family Medicine; Emergency Provider Emergency Medicine; PCP Family Medicine; Visit Provider Internal Medicine
PROC: 0DJ08ZZ Inspection of Upper Intestinal Tract, Via Natural or Artificial Opening Endoscopic (ICD-10-PCS; CPT 43235; principal; 2020-01-10 15:00)
PROC: 0FT44ZZ Resection of Gallbladder, Percutaneous Endoscopic Approach (ICD-10-PCS; CPT 47562; principal; 2020-01-14 09:00)
DX: K25.0 Acute gastric ulcer with hemorrhage (principal); J96.00 Acute respiratory failure, unspecified whether with hypoxia or hypercapnia; D62 Acute posthemorrhagic anemia; Z68.41 Body mass index [BMI] 40.0-44.9, adult; K81.1 Chronic cholecystitis; G40.909 Epilepsy, unspecified, not intractable, without status epilepticus; K92.0 Hematemesis; D50.9 Iron deficiency anemia, unspecified; F41.9 Anxiety disorder, unspecified; F32.9 Major depressive disorder, single episode, unspecified; D64.9 Anemia, unspecified; F17.290 Nicotine dependence, other tobacco product, uncomplicated; E66.01 Morbid (severe) obesity due to excess calories; Z98.84 Bariatric surgery status; Z91.14 Patient's other noncompliance with medication regimen
CPT/HCPCS: 31500; 36415; 36600; 70450; 71045; 74177; 76705; 78227; 80048; 80053; 80177; 81003; 81025; 82607; 82728; 82805; 83540; 83550; 83690; 83735; 84100; 84702; 85025; 85027; 85610; 85730; 86850; 86900; 86901; 88304; 88305; 94002; 94003; 95816; 96361; 96365; 96374; 96375; 99285; A9270; A9537; C1713; C9113; J0330; J1100; J1165; J1170; J1650; J1885; J1940; J1953; J2060; J2250; J2270; J2405; J2543; J2550; J2704; J2710; J2805; J3010; J3360; J3475; J3480; J7030; J7040; J7060; J7120; Q9967

== ENCOUNTER 2020-02-07 17:18 | Emergency (ER) | payer OTHER, SELFPAY ==
[2020-02-07] VITALS (8 sets, daily range): BP systolic 122–138; BP diastolic 69–91; PULSE 73–103; RESP 14–19; TEMP 35.7–36.9; O2SAT 98–100
--- NOTE | ~2020-02-07 | XR_ITS ---
XR chest 1V portable DATE: 02/07/2020 18:18 INDICATION: Acute seizure, possible aspiration. TECHNIQUE: Portable upright AP chest on 02/07/2020 at 1818 hours COMPARISON: 01/15/2020 portable AP chest at 0605 hours FINDINGS: Interval removal of endotracheal tube since 01/15/2020. There is mild right basilar infiltra te or atelectasis. Prominent discoid atelectasis and possible mild infiltrate are noted in the left l ower lung. Heart size is normal. No pleural effusion or pulmonary vascular congestion or pneumothorax. IMPRESSION: Bilateral lower lung infiltrate and/atelectasis, left greater than right Reviewed, dictated and finalized at location [facility].
--- NOTE | ~2020-02-07 | CT_ITS ---
EXAMINATION: CTA chest PE abdomen pel DATE: 02/07/2020 20:18 INDICATION: Chest pain. Shortness of breath. TECHNIQUE: Computed tomography angiography (CTA) of the chest was performed with 100 mL Omnipaque-350 intravenous contrast timed to evaluate the pulmonary arteries. Examination was continued through the abdomen and pelvis. Coronal maximum intensity projection 3D-reconstructions were created by the tech nologist. Automated exposure control and iterative reconstruction technique were employed. Exam dose: 1570.02 mGy-cm total exam DLP. COMPARISON: 02/07/2020 portable AP chest FINDINGS: There is moderate opacification the pulmonary arteries and no evidence of pulmonary embolis m No hilar or mediastinal mass lesion or lymphadenopathy. No thoracic aortic aneurysm or dissection is evident. Normal heart size. No pericardial or pleural effusion. There is bibasilar atelectasis involving left lower lobe greater than right lower lobe and lingula. N o pulmonary mass lesion is evident. Postoperative changes of the stomach are evident, consistent with gastric bypass surgery. There is a gastrostomy tube within the stomach. Approximately 5 x 7.5 cm collection of fluid and air is noted in the left upper quadrant between the spleen and stomach, bordered superiorly by the splenic flexure of the colon. There are adjacent small er air-fluid collections. These are apparently abscesses.. Status post cholecystectomy. No hepatic, splenic, pancreatic, and adrenal or renal space-occupying ma ss lesion is evident. Normal caliber of the abdominal aorta. No intraperitoneal or retroperitoneal or pelvic mass lesion or adenopathy or ascites. Normal appendix. No bowel obstruction or intraperitoneal free air is evident. No suspicious osteolytic or osteoblastic lesions. IMPRESSION: Multiple fluid and air collections in the left upper quadrant, most consistent with absc esses Bibasilar atelectasis, left greater than right Gastrostomy tube in stomach. Status post gastric bypass surgery. Status post cholecystectomy Reviewed, dictated and finalized at [facility]. Reviewed, dictated and finalized at location [facility]. IMPRESSION: Multiple fluid and air collections in the left upper quadrant, mos t consistent with abscesses Bibasilar atelectasis, left greater than right Gastrostomy tube in stomach. Status post gastric bypass surgery. Status post cholecystectomy
--- NOTE | 2020-02-07 17:57 | ECG_ITS ---
Measurements Intervals [place] Rate: 103 P: 57 IN: 163 QRS: -9 QRSD: 92 T: 19 QT: 354 QTc: 464 Interpretive Statements SINUS TACHYCARDIA INCOMPLETE RIGHT BUNDLE BRANCH BLOCK DELAYED PRECORDIAL R/S TRANSITION BORDERLINE ECG Electronically Signed On 02-08-2020 7:23:28 CDT by Baldev Ramirez D.O.
[2020-02-07] MEDS: ASPIRIN 81 MG CHEWABLE TABLET 324 MG PO (18:03)
--- NOTE | 2020-02-07 18:40 | ED.CHESTPAIN ---
HPI - Chest Pain General Chief Complaint: Chest Pain Stated Complaint: CP/ trouble breathing Time Seen by Provider: 02/07/20 18:19 Source: patient Mode of arrival: ambulatory Limitations: no limitations History of Present Illness HPI narrative: This patient is a 34 year old female who presents for evaluation of left chest pain starting 2 hours ago. She reports sudden onset sharp chest pain that radiates to her left arm. This pain is intermittent and it last 30 seconds and then subsides. She is not aware of any exacerbating factors. She has some sob with her pain. She denies history of lung, heart disease or DVT or PE. She denies cough, fever or leg swelling. Patient also reports that since being her she developed left abdominal pain that is sharp as well. She had g tube placed on Monday at [facility]. She states she had this placed for intractable nausea and vomiting. She also had cholecystectomy performed [address] Keyes. She has not urinary symptoms. Related Data Home Medications Medication Instructions Recorded Confirmed aripiprazole 5 mg PO HS 01/05/20 01/10/20 fluoxetine 20 mg PO DAILY 01/05/20 01/10/20 levetiracetam [Keppra] 1,500 mg PO BID 01/05/20 01/10/20 oxcarbazepine 300 mg PO BID 01/05/20 01/10/20 topiramate 100 mg PO BID 01/05/20 01/10/20 trazodone 50 mg PO PRN PRN 01/05/20 01/10/20 Allergies Allergy/AdvReac Type Severity Reaction Status Date / Time azithromycin Allergy Severe swelling Verified 02/07/20 17:25 codeine Allergy Severe swelling Verified 02/07/20 17:25 fexofenadine Allergy Intermediate hives Verified 02/07/20 17:25 adhesive tape Allergy Itching Verified 02/07/20 17:25 bupropion Allergy Hives Verified 02/07/20 17:25 clindamycin Allergy Hives Verified 02/07/20 17:25 erythromycin base Allergy Anaphylaxis Verified 02/07/20 17:25 hydrocodone Allergy Hives Verified 02/07/20 17:25 lithium Allergy Hives Verified 02/07/20 17:25 oxycodone [From Percocet] Allergy Hives Verified 02/07/20 17:25 Review of Systems Review of Systems: All systems reviewed & are unremarkable except as noted in HPI and below Constitutional: Constitutional: Denies chills and Denies fever(s) Cardiovascular: Cardiovascular: Reports chest pain Respiratory: Respiratory: Denies cough and Reports dyspnea Gastrointestinal: Gastrointestinal: Reports abdominal pain and Reports nausea Genitourinary: Genitourinary: Reports no additional female genitourinary complaints Musculoskeletal: Musculoskeletal: Reports no additional musculoskeletal complaints [facility] Past Medical History Medical History (Updated 02/08/20 @ 00:00 by Jeremy Kate) Anxiety Depression Seizure disorder Social History Social History Smoking status: Never smoker Additional smoking assessment comments: patient vapes Alcohol intake: current Drinks per week: 1 Substance use: never Additional living arrangements comments: Lives with her 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 Gender identity (if verbalized by the patient): Female Spiritual care concerns: No Exam Const: General: alert Orientation/consciousness: patient oriented x3 HENMT: Head: normocephalic and atraumatic Face and sinus: face symmetric Mouth: Yes Normal oral and palatal mucosa present Throat: posterior oropharynx normal, tonsils normal and uvula midline Eyes: Conjunctivae: conjunctivae normal Pupils: Equal, round and reactive pupils present EOM: EOMs intact bilaterally Chest: Chest palpation & inspection: normal inspection of the chest Resp: Effort & Inspection: normal respiratory effort, no retractions and not tachypneic Auscultation: clear to auscultation bilaterally Cardio: Rate: tachycardic Rhythm: regular rhythm Heart sounds: no murmurs GI: Auscultation: normal bowel sounds Other: TTP LUQ, no guarding, no rebounds Skin: Gen
[2020-02-07 19:11] LABS: Basophils Percent Auto 0.4 % (0.2-1.2); Eosinophils Absolute Auto 0.2 K/mm3 (0-0.3); Eosinophils Percent Auto 2.6 % (0-4.4); Hematocrit 28.1 % (37.0-47.0); Hemoglobin 8.8 g/dL (12.0-15.0); Immature Granulocyte Absolute 0.09 K/mm3 (0.00-0.031); Lymphocytes Absolute Auto 1.68 K/mm3 (0.9-3.2); Lymphocytes Percent Auto 18.6 % (18.3-44.2); Mean Corpuscular HGB Conc 31.3 g/dl (32-36); Mean Corpuscular Hemoglobin 25.7 pg (26-34); Mean Corpuscular Volume 82.2 fl (80-100); Mean Platelet Volume 9.8 fl (7.4-10.4); Monocytes Absolute Auto 0.8 K/mm3 (0.1-0.6); Neutrophils Absolute Auto 6.2 K/mm3 (1.3-6.7); Neutrophils Percent Auto 68.4 % (45.5-73.1); Platelet Count Result 400 k/mm3 (150-375); Red Blood Count 3.42 M/mm3 (4.2-5.4); Red Cell Distribution Width 14.7 % (11.5-14.5)
[2020-02-07 19:23] LABS: INR 1.2; Prothrombin Time 15.2 Seconds (11.1-14.7)
[2020-02-07 19:24] LABS: Partial Thromboplastin Time 28.5 SECONDS (22.3-36.8)
[2020-02-07 19:29] LABS: Alanine Aminotransferase 31 U/L (4-35); Albumin Level 3.5 g/dL (3.5-5.1); Alkaline Phosphatase 116 U/L (38-126); Aspartate Amino Transferase 32 U/L (14-36); Bilirubin,Total 0.2 mg/dL (0.2-1.3); Lipase 352 U/L (23-300)
[2020-02-07 19:31] LABS: Blood Urea Nitrogen 5 mg/dL (7-17); Calcium 8.6 mg/dL (8.4-10.2); Carbon Dioxide 22 mmol/L (22-30); Chloride 108 mmol/L (98-107); Estimated Glomerular Filt Rate > 60; Glucose 94 mg/dL (65-105); Potassium 3.6 mmol/L (3.4-5.0); Sodium 139 mmol/L (137-145)
[2020-02-07 19:41] LABS: Troponin I < 0.012 ng/mL (0.000-0.034)
[2020-02-07 19:48] LABS: Add Urine Microscopic? YES; Appearance Urine Clear (Clear); Bilirubin Urine Negative (Negative); Blood Urine 2+ (Negative); Color Urine Yellow (Yellow); Glucose Urine UA Negative (Negative); Ketones Urine Negative (Negative); Leukocyte Esterase Ur Negative LEU/UL (Negative); Mucus Urine Few /lpf; Nitrate Urine Negative (Negative); Protein Urine Negative (Negative); RBC Urine 21-50 /hpf (0-2); Specific Grav Ur 1.023 (1.001-1.035); Squamous Epithelial Cell Urine Moderate /hpf (Few); WBC Urine 0-3 /hpf
[2020-02-07] MEDS: MORPHINE SULFATE 4 MG/ML INJ IV PUSH (21:32)
[2020-02-07 21:48] LABS: Troponin I < 0.012 ng/mL (0.000-0.034)
== END 2020-02-07 23:21 | disposition short-term general hospital (02) ==
PROVIDERS: Emergency Medicine; Emergency Provider General Practice; PCP Family Medicine
DX: T81.43XA Infection following a procedure, organ and space surgical site, initial encounter (principal); J98.11 Atelectasis; F41.9 Anxiety disorder, unspecified; F32.9 Major depressive disorder, single episode, unspecified; G40.909 Epilepsy, unspecified, not intractable, without status epilepticus; F17.290 Nicotine dependence, other tobacco product, uncomplicated; Z98.84 Bariatric surgery status; Z93.1 Gastrostomy status; R00.0 Tachycardia, unspecified; I45.10 Unspecified right bundle-branch block
CPT/HCPCS: 36415; 71045; 71275; 74177; 80048; 80076; 81001; 81025; 83690; 84484; 85025; 85610; 85730; 93005; 96365; 96375; 99285; A9270; J0131; J2270; J2543; Q9967

== ENCOUNTER 2020-06-14 12:56 | Emergency (ER) | payer MEDICAID, SELFPAY ==
--- NOTE | ~2020-06-14 | CT_ITS ---
EXAMINATION: CTA chest PE abdomen pel DATE: 06/14/2020 14:59 INDICATION: Shortness of breath and fever TECHNIQUE: Computed tomography angiography (CTA) of the chest was performed with 100 mL Omnipaque-350 intravenous contrast timed to evaluate the pulmonary arteries. Subsequent postcontrast images of the abdomen and pelvis are obtained. Coronal maximum intensity projection 3D-reconstructions were create d by the technologist. The dose-length product (DLP) was 1534.26 mGy-cm. Automated exposure control a nd iterative reconstruction technique were employed. COMPARISON: 02/07/2020 FINDINGS: CTA CHEST: The pulmonary arteries are well-opacified. No pulmonary embolism is identified. The lungs are free of acute opacities. There is no pleural effusion or pneumothorax. No pathologically enlarged thoracic lymph nodes are identified. The heart size is normal. ABDOMEN/PELVIS CT: Surgical changes in the stomach likely related to gastric bypass. There is a gastr ostomy in the stomach. There is inflammatory change surrounding the gastrostomy tract. The gallbladde r is surgically absent. The liver, spleen, pancreas, and adrenal glands are normal. The kidneys are u nremarkable. No pathologically enlarged abdominal or pelvic lymph nodes are identified. There is no f ree intraperitoneal gas or evidence of bowel obstruction. IMPRESSION: 1. No pulmonary embolism or acute cardiopulmonary abnormality. 2. Gastrostomy in the stomach with inflammatory change surrounding the gastrostomy tract. Reviewed, dictated and finalized at location A. [employer] IMPRESSION: 1. No pulmonary embolism or acute cardiopulmonary abnormality. 2. Gastrostomy in the stomach with inflammatory change surrounding the gastrost johnathon tract.
[2020-06-14 12:59] VITALS: BP 146/96; PULSE 100; RESP 14; TEMP 36.6; O2SAT 99
[2020-06-14 14:17] LABS: Basophils Percent Auto 0.4 % (0.2-1.2); Eosinophils Absolute Auto 0.1 K/mm3 (0-0.3); Eosinophils Percent Auto 1.3 % (0-4.4); Hematocrit 29.1 % (37.0-47.0); Immature Granulocyte Absolute 0.01 K/mm3 (0.00-0.031); Immature Granulocyte Percent A 0.1 % (0-0.5); Lymphocytes Absolute Auto 1.38 K/mm3 (0.9-3.2); Lymphocytes Percent Auto 16.9 % (18.3-44.2); Mean Corpuscular HGB Conc 30.9 g/dl (32-36); Mean Corpuscular Hemoglobin 24.7 pg (26-34); Mean Corpuscular Volume 79.9 fl (80-100); Mean Platelet Volume 10.1 fl (7.4-10.4); Monocytes Absolute Auto 0.6 K/mm3 (0.1-0.6); Monocytes Percent Auto 7.6 % (2.6-8.5); Neutrophils Percent Auto 73.7 % (45.5-73.1); Platelet Count Result 262 k/mm3 (150-375); Red Blood Count 3.64 M/mm3 (4.2-5.4); White Blood Count 8.2 K/mm3 (4.5-10.0)
[2020-06-14 14:27] LABS: Partial Thromboplastin Time 26.8 SECONDS (22.3-36.8)
[2020-06-14 14:30] LABS: Anion Gap 5 mmol/L (8-16); Blood Urea Nitrogen 7 mg/dL (7-17); Calcium 8.7 mg/dL (8.4-10.2); Carbon Dioxide 29 mmol/L (22-30); Chloride 105 mmol/L (98-107); Estimated CRCL calculation 144 ml/min; Estimated Glomerular Filt Rate > 60; Glucose 92 mg/dL (65-105); Potassium 3.2 mmol/L (3.4-5.0); Sodium 139 mmol/L (137-145)
--- NOTE | 2020-06-14 14:44 | ED.GENADULT ---
HPI - General Adult General Chief complaint: Unspecified Stated complaint: swelling around feeding tube Time Seen by Provider: 06/14/20 12:59 History of Present Illness HPI narrative: Patient is a 24-year-old female who presents ER with pain and drainage from her G-tube site. She has had a G-tube for the last 5 months. Patient had a gastric bypass and then she started vomiting cannot keep down food so she had to have a G-tube placed. She recently underwent additional abdominal surgery in [facility] with Dr. Alejandre where she had a hernia repaired in another small bowel intestinal issue cared for. She has been doing well and has already seen him for follow-up. She is not having this drainage issue until today. She is also having pain with deep breath and is having central chest pain and left shoulder pain. Pain in the chest and shoulder also worse with taking deep breath. She has not had a blood clot previously. No cough. No lower extremity swelling. Related Data Home Medications Medication Instructions Recorded Confirmed aripiprazole 5 mg PO HS 01/05/20 01/10/20 fluoxetine 20 mg PO DAILY 01/05/20 01/10/20 levetiracetam [Keppra] 1,500 mg PO BID 01/05/20 01/10/20 oxcarbazepine 300 mg PO BID 01/05/20 01/10/20 topiramate 100 mg PO BID 01/05/20 01/10/20 trazodone 50 mg PO PRN PRN 01/05/20 01/10/20 Allergies Allergy/AdvReac Type Severity Reaction Status Date / Time azithromycin Allergy Severe swelling Verified 02/07/20 17:25 codeine Allergy Severe swelling Verified 02/07/20 17:25 fexofenadine Allergy Intermediate hives Verified 02/07/20 17:25 adhesive tape Allergy Itching Verified 02/07/20 17:25 bupropion Allergy Hives Verified 02/07/20 17:25 clindamycin Allergy Hives Verified 02/07/20 17:25 erythromycin base Allergy Anaphylaxis Verified 02/07/20 17:25 hydrocodone Allergy Hives Verified 02/07/20 17:25 lithium Allergy Hives Verified 02/07/20 17:25 oxycodone [From Percocet] Allergy Hives Verified 02/07/20 17:25 Review of Systems Review of Systems: All systems reviewed & are unremarkable except as noted in HPI and below Constitutional: Constitutional: Denies fever(s) and Denies weakness Cardiovascular: Cardiovascular: Reports chest pain, Denies diaphoresis, Denies palpitations and Denies dyspnea on exertion Respiratory: Respiratory: Denies cough, Reports pain on inspiration and Denies dyspnea PMFSH Past Medical History Medical History (Updated 06/14/20 @ 16:22 by Marko Madrigal MD) Anxiety Depression Seizure disorder Surgical History Surgical History History of gastric bypass Laparoscopic gastric bypass History of sleeve gastrectomy Laparoscopic. Prior to gastric bypass. 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 HEAD: Normocephalic, atraumatic. CHEST: Clear to auscultation. No respiratory distress. HEART: Regular rate and rhythm. Normal peripheral pulses. ABDOMEN: Soft, nontender, nondistended, G-tube in epigastrium without purulent drainage or surrounding cellulitis. EXTREMITIES: Normal range of motion. No edema. SKIN: Warm, dry, no rash. NEURO: Alert and or
[2020-06-14 16:18] VITALS: BP 136/75; PULSE 97; RESP 15; O2SAT 99
== END 2020-06-14 16:34 | disposition home or self-care (01) ==
PROVIDERS: Emergency Provider Emergency Medicine; PCP Family Medicine
DX: K94.22 Gastrostomy infection (principal); L03.311 Cellulitis of abdominal wall; G40.909 Epilepsy, unspecified, not intractable, without status epilepticus; F41.9 Anxiety disorder, unspecified; F32.9 Major depressive disorder, single episode, unspecified; Z98.84 Bariatric surgery status
CPT/HCPCS: 36415; 71275; 74177; 80048; 81025; 85025; 85610; 85730; 99284; Q9967

== ENCOUNTER 2020-06-15 20:36 | Emergency (ER) | payer MEDICAID, SELFPAY ==
--- NOTE | ~2020-06-15 | XR_ITS ---
XR chest 1V portable DATE: 06/15/2020 22:10 INDICATION: Shortness of breath. Headache. TECHNIQUE: Portable AP chest on 06/25/2020 at 2211 hours COMPARISON: 06/24/2020 CT pulmonary abdomen and pelvis examination 02/07/2020 portable AP chest FINDINGS: Normal heart size. No hilar or mediastinal enlargement. No pulmonary infiltrate or consolidation, pleural effusion or pulmonary vascular congestion or pneumo thorax is detected. IMPRESSION: No active cardiopulmonary disease Reviewed, dictated and finalized at location A. N [employer]
[2020-06-15 20:48] VITALS: BP 148/92; PULSE 103; RESP 15; TEMP 37.2; O2SAT 98
[2020-06-15 21:02] VITALS: BP 139/80; PULSE 77; RESP 20; TEMP 36.8; O2SAT 99
--- NOTE | 2020-06-15 22:17 | ED.SOB ---
HPI - SOB/Dyspnea General Chief Complaint: Shortness of Breath/Dyspnea Stated Complaint: shortness of breath Time Seen by Provider: 06/15/20 21:01 History of Present Illness HPI Narrative: Patient is a 24-year-old female who presents ER with shortness of breath. Patient was seen yesterday for similar symptoms as well as a possible G-tube site infection. She had a CTA that ruled out PE and infectious process. Reports she woke up this morning and felt like she had been hit by a bus, she had red rash to her body and felt feverish. She also felt short of breath. She went to a urgent care in a separate part of the [facility] and had a Covid test performed as well as a strep and flu test. Strep and flu test were negative. She reports she then became short of breath driving this evening and opted to come here for further evaluation. She does think she has some anxiousness but does not think it was anxiety attack. Related Data Home Medications Medication Instructions Recorded Confirmed aripiprazole 5 mg PO HS 01/05/20 01/10/20 fluoxetine 20 mg PO DAILY 01/05/20 01/10/20 levetiracetam [Keppra] 1,500 mg PO BID 01/05/20 01/10/20 oxcarbazepine 300 mg PO BID 01/05/20 01/10/20 topiramate 100 mg PO BID 01/05/20 01/10/20 trazodone 50 mg PO PRN PRN 01/05/20 01/10/20 Allergies Allergy/AdvReac Type Severity Reaction Status Date / Time azithromycin Allergy Severe swelling Verified 06/15/20 22:07 codeine Allergy Severe swelling Verified 06/15/20 22:07 fexofenadine Allergy Intermediate hives Verified 06/15/20 22:07 adhesive tape Allergy Itching Verified 06/15/20 22:07 bupropion Allergy Hives Verified 06/15/20 22:07 clindamycin Allergy Hives Verified 06/15/20 22:07 erythromycin base Allergy Anaphylaxis Verified 06/15/20 22:07 hydrocodone Allergy Hives Verified 06/15/20 22:07 lithium Allergy Hives Verified 06/15/20 22:07 oxycodone [From Percocet] Allergy Hives Verified 06/15/20 22:07 Review of Systems Constitutional: Constitutional: Denies chills, Reports fatigue and Reports fever(s) ENT: Denies nasal congestion and Denies sore throat Cardiovascular: Cardiovascular: Denies chest pain and Denies radiating jaw, neck or arm pain Respiratory: Respiratory: Reports cough, Reports dyspnea and Denies wheezing Gastrointestinal: Comments: Discomfort around the G-tube site. [facility] Past Medical History Medical History (Updated 06/15/20 @ 22:24 by Marko Madrigal MD) Anxiety Depression Pseudoseizures Seizure disorder Surgical History Surgical History History of gastric bypass Laparoscopic gastric bypass History of sleeve gastrectomy Laparoscopic. Prior to gastric bypass. 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 HEAD: Normocephalic, atraumatic. CHEST: Clear to auscultation. No respiratory distress. HEART: Regular rate and rhythm. Normal peripheral pulses. ABDOMEN: Soft, nontender, nondistended. Normal-appearing G-tube site with some mild discomfort at the location but no rebound or guarding. Otherwise well-healing surgical incision sites from previous surgery. EXTREMITIES: Normal range of motion. No
[2020-06-15 22:40] VITALS: BP 133/78; PULSE 81; RESP 18; O2SAT 98
== END 2020-06-15 22:42 | disposition home or self-care (01) ==
PROVIDERS: Emergency Provider Emergency Medicine; PCP Family Medicine
DX: F41.9 Anxiety disorder, unspecified (principal); F32.9 Major depressive disorder, single episode, unspecified; G40.909 Epilepsy, unspecified, not intractable, without status epilepticus; Z98.84 Bariatric surgery status; R06.00 Dyspnea, unspecified
CPT/HCPCS: 71045; 99283

== ENCOUNTER 2020-07-25 21:52 | Emergency (ER) | payer MEDICAID, SELFPAY ==
--- NOTE | ~2020-07-25 | XR_ITS ---
EXAMINATION: XR G tube evaluation w imaging DATE: 07/25/2020 22:49 INDICATION: Gastrostomy tube placement. TECHNIQUE: A supine view of the abdomen was obtained. COMPARISON: Abdomen radiograph 01/15/2020, CT abdomen and pelvis 06/14/2020 FINDINGS: The right lateral aspect of the abdomen is excluded. There are no dilated loops of bowel. T here is a gastrostomy tube in expected position. There is contrast in the tube and in the stomach. IMPRESSION: 1. Gastrostomy tube in expected position. Reviewed, dictated and finalized at location A. RNAL CHILD NURSE
[2020-07-25 21:56] VITALS: BP 143/77; PULSE 98; RESP 18; TEMP 36.6; O2SAT 100
--- NOTE | 2020-07-25 23:02 | ED.GENADULT ---
HPI - General Adult General Chief complaint: Unspecified Stated complaint: pain at feeding tube site Time Seen by Provider: 07/25/20 22:20 History of Present Illness HPI narrative: Patient is a 24-year-old female with history of G-tube placement. 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 She then replaced it. She did not reinflate the bulb. No fevers or chills or sweats. No vomiting. No drainage from around the tube. Related Data Home Medications Medication Instructions Recorded Confirmed aripiprazole 5 mg PO HS 01/05/20 01/10/20 fluoxetine 20 mg PO DAILY 01/05/20 01/10/20 levetiracetam [Keppra] 1,500 mg PO BID 01/05/20 01/10/20 oxcarbazepine 300 mg PO BID 01/05/20 01/10/20 topiramate 100 mg PO BID 01/05/20 01/10/20 trazodone 50 mg PO PRN PRN 01/05/20 01/10/20 Allergies Allergy/AdvReac Type Severity Reaction Status Date / Time azithromycin Allergy Severe swelling Verified 06/15/20 22:07 codeine Allergy Severe swelling Verified 06/15/20 22:07 fexofenadine Allergy Intermediate hives Verified 06/15/20 22:07 adhesive tape Allergy Itching Verified 06/15/20 22:07 bupropion Allergy Hives Verified 06/15/20 22:07 clindamycin Allergy Hives Verified 06/15/20 22:07 erythromycin base Allergy Anaphylaxis Verified 06/15/20 22:07 hydrocodone Allergy Hives Verified 06/15/20 22:07 lithium Allergy Hives Verified 06/15/20 22:07 oxycodone [From Percocet] Allergy Hives Verified 06/15/20 22:07 Review of Systems Constitutional: Constitutional: Denies chills and Denies fever(s) Cardiovascular: Cardiovascular: Denies chest pain and Denies rapid heart rate Gastrointestinal: Gastrointestinal: Reports abdominal pain, Denies nausea and Denies vomiting PMFSH Past Medical History Medical History (Updated 07/25/20 @ 23:31 by Marko Madrigal MD) Anxiety Depression Pseudoseizures Seizure disorder Surgical History Surgical History History of gastric bypass Laparoscopic gastric bypass History of sleeve gastrectomy Laparoscopic. Prior to gastric bypass. 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 HEAD: Normocephalic, atraumatic. ABDOMEN: Soft, nontender, normal-appearing G-tube site without cellulitis or drainage.. EXTREMITIES: Normal range of motion. No edema. SKIN: Warm, dry, no rash. NEURO: Alert and oriented x3. PSYCH: Normal mood and affect. Course Course Emergency Course: G-tube in place. 20 mL of saline instilled into the balloon. Vital Signs Vital signs: Vital Signs Temperature 97.9 F 07/25/20 21:56 Pulse Rate 98 07/25/20 21:56 Respiratory Rate 18 07/25/20 21:56 Blood Pressure 143/77 H 07/25/20 21:56 Pulse Oximetry 100 07/25/20 21:56 Temperature 97.9 F 07/25/20 21:56 Pulse Rate 98 07/25/20 21:56 Respiratory Rate 18 07/25/20 21:56 Blood Pressure 143/77 H 07/25/20 21:56 Pulse Oximetry 100 07/25/20 21:56 Medical Decision Making Vital Signs Vital Signs: Vital Signs Temperature 97.9 F 07/25/20 21:56 Pulse Rate 98 07/25/20 21:56 Respiratory Rate 18 07/25/20 21:56 Blood Pressure 143/77 H 12
[2020-07-25 23:45] VITALS: BP 142/83; PULSE 78; RESP 16; O2SAT 98
== END 2020-07-25 23:45 | disposition home or self-care (01) ==
PROVIDERS: Emergency Provider Emergency Medicine; PCP Family Medicine
DX: Z43.1 Encounter for attention to gastrostomy (principal); F41.9 Anxiety disorder, unspecified; F32.9 Major depressive disorder, single episode, unspecified; G40.909 Epilepsy, unspecified, not intractable, without status epilepticus; Z98.84 Bariatric surgery status; F17.290 Nicotine dependence, other tobacco product, uncomplicated
CPT/HCPCS: 49465; 99284

== ENCOUNTER 2020-08-30 18:31 | Emergency (ER) | payer OTHER, SELFPAY ==
--- NOTE | ~2020-08-30 | XR_ITS ---
EXAMINATION: XR G tube replacement w image EXAM DATE: 08/30/2020 20:54 INDICATION: Gastrostomy tube evaluation. TECHNIQUE: Frontal projection(s) of the abdomen for interpretation. Image was taken after injecting 3 0 mL of Omnipaque 350 solution through the gastrostomy tube. Comparison is made to prior examination from 07/25/2020. FINDINGS: Injected contrast is contained within small gastric pouch. Nonobstructive bowel gas pattern . There are cholecystectomy clips. There are no osseous abnormalities identified. IMPRESSION: Gastrostomy tube in position. Reviewed, dictated and finalized at location A. T OPERATIONS MANAGER
[2020-08-30 18:32] VITALS: BP 142/61; PULSE 96; RESP 16; TEMP 36.4; O2SAT 100
--- NOTE | 2020-08-30 19:54 | ED.SKABFB ---
HPI - Skin/Abscess/Foreign Bdy General Chief complaint: Skin/Abscess/Foreign Body Stated complaint: feeding tube issues Time Seen by Provider: 08/30/20 18:59 History of Present Illness HPI narrative: Patient is a 25-year-old female who presents ER with a feeding tube issue. Reports she has been draining clear fluid from her G-tube site the last couple days. The skin has become very well medicated. She keeps changing the pads with a circular present minutes. No fevers or chills or sweats. No abdominal tenderness just superficial discomfort around the feeding tube site. Has not been see her GI doctor she reports that no longer accept concerns. Patient is a complex patient due to feeding tube placement after gastric bypass surgery. Related Data Home Medications Medication Instructions Recorded Confirmed aripiprazole 5 mg PO HS 01/05/20 01/10/20 fluoxetine 20 mg PO DAILY 01/05/20 01/10/20 levetiracetam [Keppra] 1,500 mg PO BID 01/05/20 01/10/20 oxcarbazepine 300 mg PO BID 01/05/20 01/10/20 topiramate 100 mg PO BID 01/05/20 01/10/20 trazodone 50 mg PO PRN PRN 01/05/20 01/10/20 Allergies Allergy/AdvReac Type Severity Reaction Status Date / Time azithromycin Allergy Severe swelling Verified 06/15/20 22:07 codeine Allergy Severe swelling Verified 06/15/20 22:07 fexofenadine Allergy Intermediate hives Verified 06/15/20 22:07 adhesive tape Allergy Itching Verified 06/15/20 22:07 bupropion Allergy Hives Verified 06/15/20 22:07 clindamycin Allergy Hives Verified 06/15/20 22:07 erythromycin base Allergy Anaphylaxis Verified 06/15/20 22:07 hydrocodone Allergy Hives Verified 06/15/20 22:07 lithium Allergy Hives Verified 06/15/20 22:07 oxycodone [From Percocet] Allergy Hives Verified 06/15/20 22:07 Review of Systems Review of Systems: All systems reviewed & are unremarkable except as noted in HPI and below Constitutional: Constitutional: Denies chills, Denies fever(s) and Denies weakness ENT: Denies dysphagia, Denies nasal congestion and Denies sore throat Gastrointestinal: Gastrointestinal: Denies abdominal pain, Denies diarrhea, Denies nausea and Denies vomiting PMFSH Past Medical History Medical History (Updated 08/30/20 @ 19:58 by Marko Madrigal MD) Anxiety Depression Pseudoseizures Seizure disorder Surgical History Surgical History History of gastric bypass Laparoscopic gastric bypass History of sleeve gastrectomy Laparoscopic. Prior to gastric bypass. 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 HEAD: Normocephalic, atraumatic. ABDOMEN: Soft, nontender, nondistended. Irritation around G-tube site in left upper quadrant, acid secretions coming from stoma. EXTREMITIES: Normal range of motion. No edema. SKIN: Warm, dry, no rash. NEURO: Alert and oriented x3. PSYCH: Normal mood and affect. Course Course Emergency Course: Patient's feeding tube balloon was not inflated. Nurse inflate balloon with 5ml. Still with drainage, decided we would deflate the balloon again and withdrew stomach acid from the balloon port. Early balloon is ruptured. We will plan exchange of fee
[2020-08-30 21:35] VITALS: BP 144/93; PULSE 89; RESP 18; O2SAT 94
== END 2020-08-30 21:36 | disposition home or self-care (01) ==
PROVIDERS: Emergency Provider Emergency Medicine; PCP Family Medicine
DX: K94.29 Other complications of gastrostomy (principal); Z98.84 Bariatric surgery status; F41.9 Anxiety disorder, unspecified; F32.9 Major depressive disorder, single episode, unspecified; G40.909 Epilepsy, unspecified, not intractable, without status epilepticus
CPT/HCPCS: 49450; 99284

== ENCOUNTER 2020-10-25 12:13 | Emergency (ER) | payer OTHER, SELFPAY ==
--- NOTE | 2020-10-25 12:25 | ED.DENTAL ---
HPI - Dental/Oral General Chief complaint: Dental/Oral Stated complaint: Dental/Oral Time Seen by Provider: 10/25/20 12:25 Source: patient and RN notes reviewed History of Present Illness HPI Narrative: Patient is a 25-year-old female who presents the urgent care with complaints of left lower dental pain. Patient states that it started last night after having cracked her tooth approximately 1 month ago. Patient states that she does have a dentist appointment on and will follow up as scheduled. Patient denies of any fever, chills, nausea, vomiting, facial swelling. No other acute complaints. No acute distress noted. Patient aware of the plan of care. Some parts of this dictation were generated by voice recognition software and may contain typographical and/or grammatical inaccuracies. Related Data Home Medications Medication Instructions Recorded Confirmed aripiprazole 5 mg PO HS 01/05/20 01/10/20 fluoxetine 20 mg PO DAILY 01/05/20 01/10/20 levetiracetam [Keppra] 1,500 mg PO BID 01/05/20 01/10/20 oxcarbazepine 300 mg PO BID 01/05/20 01/10/20 doxepin 10/25/20 10/25/20 Allergies Allergy/AdvReac Type Severity Reaction Status Date / Time azithromycin Allergy Severe swelling Verified 06/15/20 22:07 codeine Allergy Severe swelling Verified 06/15/20 22:07 fexofenadine Allergy Intermediate hives Verified 06/15/20 22:07 adhesive tape Allergy Itching Verified 06/15/20 22:07 hydrocodone Allergy Hives Verified 06/15/20 22:07 lithium Allergy Hives Verified 06/15/20 22:07 oxycodone [From Percocet] Allergy Hives Verified 06/15/20 22:07 bupropion AdvReac Nausea and Verified 10/25/20 12:36 Vomiting Review of Systems Review of Systems: Narrative: CONSTITUTIONAL: Denies fever, chills, or sweats. EYES: Denies visual changes, redness, or discharge. ENT: Reports of lower left dental pain CARDIOVASCULAR: Denies chest pain, palpitations, or edema. RESPIRATORY: Denies cough or dyspnea. GASTROINTESTINAL: Denies abdominal pain, nausea, vomiting, or diarrhea. GENITOURINARY: Denies dysuria or hematuria. SKIN: Denies rash or itching. MUSCULOSKELETAL: Denies back pain, joint pain, or myalgia. NEUROLOGIC: Denies headache, numbness, or weakness. All other systems reviewed are negative, except as documented in HPI. [facility] Past Medical History Medical History (Updated 10/25/20 @ 12:40 by LORETO Ospina) Anxiety Depression Pseudoseizures Seizure disorder Surgical History Surgical History History of gastric bypass Laparoscopic gastric bypass History of sleeve gastrectomy Laparoscopic. Prior to gastric bypass. Family History Family History Mother Gallbladder disease Grandparent Gallbladder disease Father Gallbladder disease Sibling Gallbladder disease Other Diabetes mellitus Hypertension Social History Social History Smoking status: Never smoker Additional smoking assessment comments: patient vapes Alcohol intake: current Drinks per week: 1 Substance use: never Additional living arrangements comments: Lives with her Additional occupation/education comments: Works as a [employer] in a [employer]. Gender identity (if verbalized by the patient): Female Spiritual care concerns: No Comments At the time of my signature, I reviewed and agree with the nursing past medical, surgical, social, and family history. There is no relevant family history pertinent to the patient complaint. Exam Narrative: Exam Narrative: GENERAL: This is a well-nourished, well-developed patient, in no apparent distress. HEAD: normocephalic, atraumatic. EYES: PERRL. Sclera clear/white. Vision is grossly intact. EARS: External ears normal, auditory canals clear and without drainage, TMs normal without perforation. Hearing grossly intact. N
[2020-10-25 12:27] VITALS: BP 184/96; PULSE 98; RESP 18; TEMP 36.7; O2SAT 99
[2020-10-25 12:32] VITALS: BP 184/96; PULSE 98; RESP 18; TEMP 36.7; O2SAT 99
== END 2020-10-25 12:45 | disposition home or self-care (01) ==
PROVIDERS: Emergency Provider Nurse Practitioner Family; PCP Family Medicine
DX: K08.89 Other specified disorders of teeth and supporting structures (principal); K03.81 Cracked tooth; F41.9 Anxiety disorder, unspecified; F32.9 Major depressive disorder, single episode, unspecified; Z98.84 Bariatric surgery status
CPT/HCPCS: 99213; G0463

== ENCOUNTER → 2021-04-24 01:04 | Outpatient (CLI) | payer OTHER, SELFPAY ==
[2021-04-26 19:01] LABS: SARS-CoV-2 RNA PCR Negative
== END ==
PROVIDERS: PCP Family Medicine; Visit Provider Family Medicine
DX: Z20.822 Contact with and (suspected) exposure to COVID-19 (principal)
CPT/HCPCS: C9803; U0003; U0005

== ENCOUNTER 2021-07-11 17:50 | Emergency (ER) | payer OTHER, SELFPAY ==
[2021-07-11 18:04] VITALS: BP 152/90; PULSE 107; RESP 20; TEMP 37.3; O2SAT 100
--- NOTE | 2021-07-11 18:22 | ED.SKABFB ---
HPI - Skin/Abscess/Foreign Bdy General Chief complaint: Skin/Abscess/Foreign Body Stated complaint: Swelling Right Leg/ Left Arm Source: patient Mode of arrival: ambulatory Limitations: no limitations History of Present Illness HPI narrative: Patient is a 25-year-old female who presents with redness, swelling and tenderness to left upper arm and right upper lateral thigh. Patient reports that she was recently admitted for surgery of a bleeding ulcer from 06/13-07/08 at the [facility]. She reports having IM Tigan which has now caused erythema, warmth, tenderness and pain to arm and leg. Patient also reports generalized malaise and nausea for the past 2 days. She denies all other complaints at this time. MD complaint: rash Related Data Home Medications Medication Instructions Recorded Confirmed ondansetron 4 mg PO Q8H PRN 07/11/21 07/11/21 oxycodone 10 mg PO TID PRN 07/11/21 07/11/21 Allergies Allergy/AdvReac Type Severity Reaction Status Date / Time azithromycin Allergy Severe swelling Verified 07/11/21 18:22 codeine Allergy Severe swelling Verified 07/11/21 18:22 fexofenadine Allergy Intermediate hives Verified 07/11/21 18:22 hydrocodone Allergy Intermediate Hives Verified 07/11/21 18:22 lithium Allergy Intermediate Hives Verified 07/11/21 18:22 oxycodone [From Percocet] Allergy Intermediate Hives Verified 07/11/21 18:22 adhesive tape Allergy Mild Itching Verified 07/11/21 18:22 bupropion AdvReac Intermediate Nausea and Verified 07/11/21 18:22 Vomiting Review of Systems Review of Systems: CONSTITUTIONAL: Reports chills and generalized malaise. EYES: Denies visual changes, redness, or discharge. ENT: Denies rhinorrhea, congestion, sore throat, or otalgia. CARDIOVASCULAR: Denies chest pain, palpitations, or edema. RESPIRATORY: Denies cough or dyspnea. GASTROINTESTINAL: Denies abdominal pain, nausea, vomiting, or diarrhea. GENITOURINARY: Denies dysuria or hematuria. SKIN: Redness and swelling to left upper arm and right lateral thigh MUSCULOSKELETAL: Denies back pain, joint pain, or myalgia. NEUROLOGIC: Denies headache, numbness, dizziness, or weakness. PSYCHIATRIC: Denies anxiety or depression. [facility] Past Medical History Medical History Anxiety Depression Pseudoseizures Seizure disorder Surgical History Surgical History History of gastric bypass Laparoscopic gastric bypass History of sleeve gastrectomy Laparoscopic. Prior to gastric bypass. 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 Please see nursing chart for further information. There is no relevant family history pertinent to the presenting complaint. Exam Narrative: GENERAL: Well-appearing, well-nourished, and in no acute distress. HEAD: Normocephalic, atraumatic. EYES: EOMI. No redness or drainage. Conjunctiva are normal. ENT: Mucous membranes pink and moist. CHEST: No respiratory distress. Clear to auscultation. HEART: Regular rate and rhythm. No murmur appreciated. Normal peripheral pulses. GI: Soft, nontender without r
[2021-07-11 18:36] VITALS: BP 152/90; PULSE 107; RESP 20; TEMP 37.3; O2SAT 100
== END 2021-07-11 18:50 | disposition short-term general hospital (02) ==
PROVIDERS: Emergency Provider Nurse Practitioner; PCP Family Medicine
DX: L03.114 Cellulitis of left upper limb (principal); L03.115 Cellulitis of right lower limb; G40.909 Epilepsy, unspecified, not intractable, without status epilepticus; Z98.84 Bariatric surgery status; K21.9 Gastro-esophageal reflux disease without esophagitis; E03.9 Hypothyroidism, unspecified
CPT/HCPCS: 99212; G0463

== ENCOUNTER 2025-02-24 17:59 | Inpatient (IN) | payer MEDICARE, MEDICAID, SELFPAY ==
[2025-02-24] VITALS (7 sets, daily range): BP systolic 107–136; BP diastolic 75–89; PULSE 103–115; RESP 13–22; TEMP 36.6; O2SAT 96–99; BMI 50.1
--- NOTE | ~2025-02-24 | XR_ITS ---
XR chest 1V portable 02/26/2025 05:32 Indication: Acute respiratory failure Procedure: AP portable chest Comparison: Comparison to multiple prior studies sequentially, with oldest reviewed study dated 10/2019. Findings: Cardiomegaly. Stable mild edema. Endotracheal tube tip 3.9 cm above the ernesto. Right IJ ce ntral line tip the SVC. NG tube in the stomach. No pleural effusion or pneumothorax. Impression: 1: Stable mild edema. Reviewed, dictated and finalized at location A. Impression: 1: Stable mild edema.
--- NOTE | ~2025-02-24 | XR_ITS ---
XR abdomen gastric tube insert INDICATION: Evaluate OG position. TECHNIQUE: Limited KUB perform for evaluating OG tube . COMPARISON: No prior studies for comparison. FINDINGS: OG tube tip in the stomach. Visualized bowel gas pattern is unremarkable.There are cholecy stectomy clips. IMPRESSION: 1: OG tube tip in the stomach. Reviewed, dictated and finalized at location B.
--- NOTE | ~2025-02-24 | CT_ITS ---
EXAMINATION: CT brain wo con DATE: 02/28/2025 14:51 INDICATION: Seizure TECHNIQUE: Computed tomography (CT) of the head was performed without intravenous contrast. Sagittal and coronal reconstructions were performed. The mA was adjusted according to patient size. Iterative reconstruction technique was employed. The dose-length product was 605.33 mGy-cm. COMPARISON: head CT dated 02/24/2025 FINDINGS: Again seen is a small left frontal scalp hematoma. No underlying fracture. No acute intracranial hemo rrhage, acute infarction or abnormal extra axial fluid collection. Ventricles are normal and symmetri c. No mass/mass effect. Mild mucosal thickening in the right maxillary sinus. The orbits and mastoid air cells are normal. Extensive dental disease including periapical erosions at the right maxillary f irst and second premolars. Partially visualized orogastric tube extending through the oropharynx. IMPRESSION: 1. Persistent small left frontal scalp hematoma. No fracture or acute intracranial process. Reviewed, dictated and finalized at location A. IMPRESSION: 1. Persistent small left frontal scalp hematoma. No fracture or acute intracran ial process.
--- NOTE | ~2025-02-24 | XR_ITS ---
EXAMINATION: XR chest 1V portable Exam Date/Time: 02/24/2025 21:50 CDT HISTORY: seizure Comparison: 06/15/2020. RESULT: Lines, tubes, and devices: None. Lungs and pleura: Clear. Cardiomediastinal silhouette: Stable. Other: No acute osseous or upper abdominal finding. IMPRESSION: No acute cardiopulmonary process. Reviewed, dictated and finalized at location K.
--- NOTE | ~2025-02-24 | XR_ITS ---
CHEST RADIOGRAPH CLINICAL HISTORY: intubation . COMPARISON: 03/04/2025 TECHNIQUE: Single portable view of the chest. FINDINGS Right internal jugular central venous catheter tip projecting over the proximal right atrium. Endotracheal tube is identified with its tip projecting approximately 3.3cm above the base of the car nikita. Orogastric tube identified with its tip extending below the left hemidiaphragm, presumably within the stomach. The remainder of the cardiomediastinal silhouette is otherwise unremarkable. Improved aeration of the bilateral lung gibson when compared with previous days examination. IMPRESSION: Improved aeration of the bilateral lung gibson when compared with previous days examination. Supportive lines and tubes in good position. Reviewed, dictated and finalized at location A.
--- NOTE | ~2025-02-24 | XR_ITS ---
CHEST RADIOGRAPH CLINICAL HISTORY: Aspiration pneumonia, mechanically ventilated . COMPARISON: 02/28/2025 TECHNIQUE: Single portable view of the chest. FINDINGS RIGHT internal jugular central venous catheter is present with its tip projecting over the cavoatrial junction. Endotracheal tube is identified with its tip projecting approximately 4cm above the base of the carlene a. Orogastric tube identified with its tip extending below the left hemidiaphragm, presumably within the stomach. The remainder of the cardiomediastinal silhouette is otherwise unremarkable. Redemonstration of a right mid and lower lobe infiltrate, unchanged from prior. The remainder of the lungs are clear. IMPRESSION: Right middle and lower lobe infiltrate. Supportive lines and tubes in good position. Reviewed, dictated and finalized at location A.
--- NOTE | ~2025-02-24 | XR_ITS ---
XR chest 1V portable 03/04/2025 06:08 Indication: Respiratory failure Procedure: AP portable chest Comparison: Comparison to multiple prior studies sequentially, with oldest reviewed study dated 02/28. Findings: Shallow inspiration. Central line tip in the SVC. NG tube in the stomach. Mild cardiomegaly . There is bibasilar airspace disease. No significant effusion. No pneumothorax. Endotracheal tube ti p 2.6 cm above the ernesto. Impression: 1: Bilateral predominantly basilar airspace disease which is not significantly changed dating back to 03/01/2025. Differential diagnosis includes edema, pneumonia and/or atelectasis. Reviewed, dictated and finalized at location B. Impression: 1: Bilateral predominantly basilar airspace disease which is not significantly changed dating back to 03/01/2025. Differential diagnosis includes edema, pneumo zane and/or atelectasis.
--- NOTE | ~2025-02-24 | XR_ITS ---
XR chest ET placement 03/06/2025 23:29 Indication: Aspiration pneumonia Procedure: AP portable chest Comparison: Comparison to multiple prior studies sequentially, with oldest reviewed study dated 03/01. Findings: Endotracheal tube tip 2.6 cm above the ernesto. NG tube in the stomach. Central line tip in SVC. Cardiomegaly. Shallow inspiration. Focal infiltrates left lung base. No pleural effusion. No pne umothorax. Impression: 1: Focal infiltrates left lung base which may represent atelectasis or pneumonia. Reviewed, dictated and finalized at location B. Impression: 1: Focal infiltrates left lung base which may represent atelectasis or pneumoni a.
--- NOTE | ~2025-02-24 | CT_ITS ---
EXAMINATION: CT brain wo con DATE: 02/24/2025 19:23 INDICATION: seizure . TECHNIQUE: Computed tomography (CT) of the head was performed without intravenous contrast. The mA wa s adjusted according to patient size. Iterative reconstruction technique was employed. The dose-lengt h product was 605.33 mGy-cm. COMPARISON: 01/13/2020. FINDINGS: No acute intracranial hemorrhage or extra-axial fluid collection. No hydrocephalus, mass, or herniation. No acute ischemic infarct. Unremarkable dural venous sinus attenuation. No acute osseous abnormality. Left frontal scalp contusion. The aerated spaces are clear. IMPRESSION: No acute intracranial process. Reviewed, dictated and finalized at location K.
--- NOTE | ~2025-02-24 | XR_ITS ---
XR chest 1V portable 03/03/2025 05:45 Indication: Aspiration pneumonia Procedure: AP portable chest Comparison: 03/02/2025 Findings: Cardiomegaly with progression of pulmonary edema. Central line tip in the SVC. Endotracheal tube tip 2.8 cm above the ernesto. NG tube tip near the gastroesophageal junction. Recommend advancem ent. Persistent elevation of the right diaphragm. Impression: 1: Interval progression of pulmonary edema. Reviewed, dictated and finalized at location B. Impression: 1: Interval progression of pulmonary edema.
--- NOTE | ~2025-02-24 | XR_ITS ---
CHEST RADIOGRAPH CLINICAL HISTORY: Aspiration pneumonia, ET TUBE PLACEMENT . COMPARISON: 03/01/2025 TECHNIQUE: Single portable view of the chest. FINDINGS right internal jugular central venous catheter is present with its tip projecting over the c avoatrial junction. Endotracheal tube is identified with its tip projecting approximately 3cm above the base of the carlene a. Orogastric tube identified with its tip extending below the left hemidiaphragm, presumably within the stomach although the distal portion of the tip is not visualized. The remainder of the cardiomediastinal silhouette is enlarged, but otherwise unremarkable. Blunting of the right costophrenic sulcus suggesting a small right-sided pleural effusion. The left costophrenic sulcus is not included on the submitted image. Increased interstitial markings are identified bilaterally, findings suggesting mild pulmonary vascul ar congestion. The remainder of the lungs are clear. IMPRESSION: Small right-sided pleural effusion, nonvisualization of the left costophrenic sulcus. Mild pulmonary vascular congestion without focal infiltrate. Supportive lines and tubes in good position. Reviewed, dictated and finalized at location A. IMPRESSION: Small right-sided pleural effusion, nonvisualization of the left costophrenic s ulcus. Mild pulmonary vascular congestion without focal infiltrate. Supportive lines and tubes in good position.
--- NOTE | ~2025-02-24 | XR_ITS ---
XR chest 1V portable 02/27/2025 06:50 Indication: Aspiration pneumonia. Procedure: AP portable chest Comparison: Comparison to multiple prior studies sequentially, with oldest reviewed study dated 04/2020. Findings: Cardiomegaly. Endotracheal tube tip 3.7 cm above the ernesto. NG tube in the stomach. Right IJ central line tip the SVC. Cardiomegaly. There is right upper and lower lobe consolidation which ma y represent atelectasis or pneumonia. No pleural effusion or pneumothorax. Impression: 1: Right upper and lower lobe consolidation which may reflect atelectasis and/or pneumonia. 2: Cardiomegaly. Reviewed, dictated and finalized at location A. Impression: 1: Right upper and lower lobe consolidation which may reflect atelectasis and/o r pneumonia. 2: Cardiomegaly.
--- NOTE | ~2025-02-24 | XR_ITS ---
XR chest 1V portable 02/28/2025 05:58 Indication: Aspiration pneumonia. Procedure: AP portable chest Comparison: Comparison to multiple prior studies sequentially, with oldest reviewed study dated 02/25. Findings: Stable enlarged cardiomediastinal silhouette. Patchy bibasilar infiltrates unchanged, consi stent with pneumonia. No significant effusion or pneumothorax. Tubes and lines stable. Impression: 1: Stable chest. No significant interval change. Reviewed, dictated and finalized at location A. Impression: 1: Stable chest. No significant interval change.
--- NOTE | ~2025-02-24 | CT_ITS ---
CLINICAL INDICATION: Abdominal pain COMPARISON: 06/14/2020. TECHNIQUE: Multiple contiguous axial images of the abdomen and pelvis were performed without the admi nistration of intravenous contrast The dose-length product (DLP) was 1723.91 mGy-cm. Automated exposure control and iterative reconstruction technique were employed. FINDINGS/OBSERVATIONS: Visualized lower thorax: Small left-sided pleural effusion with adjacent consolidation, consistent with patient's history. The heart is of normal size, without pericardial effusion. Small hiatal hernia is present. Liver: The liver demonstrates homogeneous attenuation and is enlarged measuring 21 cm in longitudinal dimens ion, an interval change from 2020. Gallbladder and biliary system: The gallbladder is surgically absent. Pancreas: Limited evaluation of the pancreas secondary to the lack of intravenous contrast. Spleen: The spleen demonstrates homogeneous attenuation and is not enlarged. Kidneys: The bilateral kidneys are unremarkable, without hydronephrosis or renal calculi. Adrenal glands: Unremarkable. Gastrointestinal tract: Postoperative change within the upper abdomen. Interval removal of the percutaneous gastrostomy tube, seen on the 2019 examination. Air-fluid levels are identified within the colon without mural thickening or significant colonic dila tation. No significant surrounding inflammatory change. Appendix: The air-filled appendix is of normal caliber (axial series, images 114 through 128) Vasculature: Unremarkable. Lymph nodes: Limited evaluation without intravenous contrast. Pelvic structures: The bladder is decompressed with a Shine catheter, limiting its evaluation. The uterus is anteverted and anteflexed, and otherwise unremarkable. Body wall and musculoskeletal: No significant degenerative disease within the lower thoracic or lumbosacral spine. IMPRESSION: Postoperative change within the upper abdomen. Air-fluid levels identified within the colon, without mural thickening or surrounding inflammatory ch cecilia. No significant colonic dilatation is appreciated. Small left-sided pleural effusion with adjacent consolidation, consistent with patient's history. Interval development of hepatomegaly since previous examination performed in 2019. Reviewed, dictated and finalized at location A. IMPRESSION: Postoperative change within the upper abdomen. Air-fluid levels identified within the colon, without mural thickening or surro unding inflammatory change. No significant colonic dilatation is appreciated. Small left-sided pleural effusion with adjacent consolidation, consistent with patient's history. Interval development of hepatomegaly since previous examination performed in .
--- NOTE | ~2025-02-24 | XR_ITS ---
XR chest ET placement 02/25/2025 07:01 Indication: Respiratory distress Procedure: AP portable chest Comparison: Comparison to multiple prior studies sequentially, with oldest reviewed study dated 01/14. Findings: Borderline heart size. Mild interstitial edema. NG tube in the stomach. Right IJ central li ne tip near the cavoatrial junction. Endotracheal tube tip 5.2 cm above the ernesto. No pleural effusi on or pneumothorax. Impression: 1: Mild interstitial edema. Reviewed, dictated and finalized at location A. Impression: 1: Mild interstitial edema.
--- OUTSIDE RECORDS SUMMARY | 2025-02-24 18:21 | XMS_ITS | Encounter Summary ---
Author Organization [facility] Address [address] [place] [address] Phone Care Team Providers Care Agricultural Research Director Name Role Phone Bushra Lyman MD Primary Care Provider [phone] Bushra Lyman MD Unavailable [phone] Angelique Vogel APRN, SLIDING JOINT MAKER Unavailable [phone] Provider, None Primary Care Provider UnavailDestiny Camargo APRN, FOILING MACHINE ADJUSTER Primary Care Provid er Memo Plascencia MD Unavailable [phone] Reason for Visit * Reason Comments Medication Refill Encounter Details Date Type Department Care Team (Late st Contact Info) Description 12/01/2021 Refill [facility] - Neurology [facility] [address] [place] [id number] Angelique Vogel APRN, SLIDING JOINT MAKER [address] [place] [address] Medication Refill Social History Tobacco Use Types Packs/Day Years Used Date Smoking Tobacco: Never Smokeless Tobacco: Never Alcohol Use Standard Drinks/Week Comments Not Currently 0 (1 standard drink = 0.6 oz pur e alcohol) Comments No Sex and Gender Information Value Date Recorded Sex Assigned at Not on file Legal Sex Female 12:29 PM CDT Gender Identity Not on file Sexual Orientation Not on file COVID-19 Exposure Response Date Recorded In the last 10 days, have yo u been in contact with someone who was confirmed or suspected to have Coronavirus/COVID-19? No / Unsure 12/02/2021 5:57 PM CDT documented as of this encounter Plan of Treatment Not on file documented as of this encounter Visit Diagnoses Diagnosis Convulsions, unspecified convulsion type (HCC) documented in this encounter Additional Health Concerns Infection Onset Date Last Indicated Resolved Time C. difficile Rule-Out 04/10/2022 04/10/20222021 9:05 AM CDT COVID - 19 Comment:Negative 06/22/2022 08/15/2022 08/15/2022 7:[address] COVID - 19 08/20/2022 08/20/2022 08/22/2022 8:14 AM LITHOGRAPHIC PRESS OPERATOR APPRENTICE documented as of this encounter Care Teams Agricultural Research Director Relationship Specialty Start Date End Date Bushra Lyman MD [address] [place] [address] [place] [address] PCP - General Harness Racing Handicapper 01/13/21 12/28/23 Provider, None [place] PCP - General 12/29/23 02/27/24 Destiny Alfaro APRN, FOILING MACHINE ADJUSTER [address] [facility] [address] [facility] [address] [place] [id number] PCP - General Advanced Practice Nurse 02/28/24 Bushra Lyman MD [address] [place] [address] [place] [address] Harness Racing Handicapper 12/18/20 Angelique Vogel APRN, SLIDING JOINT MAKER [address] [place] [address] Nurse Practitioner Advanced Practice Nurse 11/11/21 Memo Plascencia MD [address] [place] [phone] Consulting Physician Oncology 02/28/24 documented as of this encounter
--- OUTSIDE RECORDS SUMMARY | 2025-02-24 18:21 | XMS_ITS | Encounter Summary ---
Author Organization [facility] Address [address] [place] [address] Phone Care Team Providers Care Primary Care Pediatrician Name Role Phone Bushra Lyman MD Primary Care Provider [phone] Bushra Lyman MD Unavailable [phone] Angelique Vogel APRN, MANAGER DECISION SUPPORT Unavailable [phone]- [phone] Provider, None Primary Care Provider UnavailDestiny Camargo APRN, RETAIL AREA MANAGER Primary Care Provid er Memo Plascencia MD Unavailable [phone] Encounter Details Date Type Department Care Team (Late st Contact Info) Description 01/24/2023 Nursing Facility [facility] [address] [place] [address] Zain Peters, [facility] [address] [place], [place] [id number] Social History Tobacco Use Types Packs/Day Years Used Date Smoking Tobacco: Never Smokeless Tobacco: Never Alcohol Use Standard Drinks/Week Comments Not Currently 0 (1 standard drink = 0.6 oz pur e alcohol) Sexually Active Control Partners Comments Yes Male Comments No Sex and Gender Information Value Date Recorded Sex Assigned at Not on file Legal Sex Female 12:29 PM CDT Gender Identity Not on file Sexual Orientation Not on file COVID-19 Exposure Response Date Recorded In the last 10 days, have yo u been in contact with someone who was confirmed or suspected to have Coronavirus/COVID-19? No / Unsure 01/26/2023 3:52 PM CDT documented as of this encounter Progress Notes * Lorraine Zain Teran, PAC - 01/24/2023 11:53 AM CDT [facility] PROGRESS NOTE Preethi Napier is a 27 y.o. female at [facility] for rehabilitation. Prior to coming to rehabilitation facility patient was hospitalized at [facility] from12/30/2022 through 01/05/2023 after suffering a prolonged breakthrough seizure that resulted in weakness on right side of her body, MRV was unremarkable however. While in the facility patient had another breakthrough prolonged seizure and ended up being hospitalized from 01/12/2023 through 01/17/2023 at [facility]. Subjective: Interval History: Patient sitting comfortably in her chair. Nausea vomiting has been little better as of late. No acute symptoms at this time. Will be discharging home on Monday due to insurance cut. She says she is little nervous about this. My exam today shows she is still having quite a bit of weakness and right arm and right leg. Seems to be even more weak than what it was upon arrival to facility with 3+ out of 5 strength in right arm and right leg with reduced range of motion. Unclear if there is some self-limiting behavior duringmy exam but it is possible. Nursing staff with no acute concerns about the patient. Past Medical History Positives Diagnosis Date ??? Asthma 2010 ??? Chronic nausea ??? Chronic vomiting ??? Depression ??? Seizures (HCC) ??? Thyroid disease Family History Problem Relation Age of Onset ??? Hypertension Father ??? Diabetes Maternal Grandmother Social History Socioeconomic History ??? Marital status: Spouse name: Not on file ??? Number of children: Not on file ??? Years of education: Not on file ??? Highest education level: Not on file Occupational History ??? Not on file Tobacco Use ??? Smoking status: Never ??? Smokeless tobacco: Never Vaping Use ??? Vaping Use: Every day ??? Substances: Nicotine Substance and Sexual Activity ??? Alcohol use: Not Currently ??? Drug use: Never ??? Sexual activity: Yes Partners: Male Other Topics Concern ??? Not on file Social History Narrative Merged History Encounter Past Surgical History: Procedure Laterality Date ??? CHOLECYSTECTOMY ??? EXPLORATORY OF ABDOMEN small bowel resection ??? GASTRIC BYPASS SURGERY 01/2018 ??? GASTRIC BYPASS SURGERY ??? HIATAL HERNIA REPAIR ??? TONSILLECTOMY ??? UPPER GASTROINTESTINAL ENDOSCOPY N/A 01/18/2021 Procedure: EGD - SMALL BOWEL ULCERATION, SMALL BOWEL EROSION, MARU TEST, PREVIOUS GASTRIC BYPASS,; Surgeon: Jorge Sierra DO; Location: [facility]; Service: Gastroenterology ??? UPPER GASTROINTESTINAL ENDOSCOPY N/A 04/29/2021 Procedure: EGD with PEG tube removal-HIATAL HERNIA, NO EVIDENCE OF BLEEDING, PEG TUBE NOT VISUALIZED; Surgeon: Shun Nguyen MD; Location: [facility]; Service: Gastroenterology ??? WISDOM TOOTH EXTRACTION Review of Systems: A 14 point comprehensive review of systems was negative except what is documented in interval history above. Objective: Exam: Vital Signs: Recent vital signs were reviewed in the electronic medical records at nursing facility and are unremarkable. General: Well developed, well nourished, in no distress , Skin: Normal appearance, normal turgor, no rashes HEENT: Normocephalic, atraumatic, no flaring Eyes: nonicteric, intact extra occular movement, PERRL Neck: normal, supple, no lymphadenopathy Heart: regular rate and rhythm, S1, S2 normal, no murmur, click, rub or gallop Lungs: clear to ausculation, normal respirations with no accessory muscle use, normal rate Abdominal: soft, non-tender; bowel sounds normal; no masses, no organomegaly Extremities: no deformities, joint mobility appears intact, no clubbing Neuro: CN intact,- 4/5 strength in right upper and lower extremity, 5/5 strength on left side of body Psychological: alert and oriented X3, appropriate mood and affect, Intact judgement and memory Lab Results: On 01/05/23 while hospitalized, CBC with hemoglobin 8.7 otherwise unremarkable. CMP unremarkable. 01/12/2023 while hospitalized, CBC with ALT of 76, alk-phos 224, protein 6.4 otherwise unremarkable. CBC with hemoglobin 9.3 otherwise unremarkable. Imaging: Nine Assessment/Plan: Seizure disorder Also with history of nonepileptic seizures Followed by neurology Continue Keppra Hospitalized after recent prolonged breakthrough seizure with right-sided weakness after her cognition improved MRV showing no obvious cause to her right-sided weakness according to Neurology Receiving jail care physical therapy rehabilitation 01/12/2023: Patient developed another prolonged breakthrough seizure just now. EMS was activated and she was still having seizure-like activity upon their arrival so she will be sent to the emergencyroom for further evaluation and care. I discussed case with EMS upon arrival to facility. 01/18/2023: She returns to the facility yesterday. Medical records suggest that seizures could be from her chronic nausea and vomiting and inability to keep down her Keppra. She had an EGD done for patient which I do not have access to but returns with a course of rifampin for small-bowel bacterialovergrowth. Chronic abdominal pain with chronic nausea vomiting History of gastric bypass During recent hospitalization CT scan of abdomen showed nothing acute Underwent upper GI barium study that was also normal No further workup recommended at this time according to GI, recommended daily PPI and p.r.n. Zofran The extended-release morphine that she has been on for the last few months will be continued Will need to follow-up with her established fiber worker/bariatric surgeon at [facility] 01/24/2023: Better as of late. History of bilateral recurrent brachial and jugular DVTs Continue Eliquis which she is to be on indefinitely Psychiatric history with personality disorder, depression, anxiety Continue home regimen Abilify, Remeron and BuSpar own VTE Prophylaxis: She is anticoagulated with Eliquis at baseline I discussed advanced care planning with this patient. Disposition: Planning on going home after completion of skilled therapy 01/24/2023: Planning on going home on 01/27/2023. This note was dictated using M*Modal fluency dictation system and there may be errors in litigation services manager. Despite proof reading the note, there may be mistakes and I apologize for those. By: MATT Lau, 01/24/2023 11:59 AM CDT documented in this encounter Plan of Treatment Not on file documented as of this encounter Visit Diagnoses Not on filedocumented in this encounter Care Teams Primary Care Pediatrician Relationship Specialty Start Date End Date Bushra Lyman MD [address] [place] [address] [place] [address] PCP - General Sod Cutter 01/13/21 12/28/23 Provider, None [place] PCP - General 12/29/23 02/27/24 Destiny Alfaro APRN, RETAIL AREA MANAGER [address] [facility] [address] [facility] [address] [place] [id number] PCP - General Advanced Practice Nurse 02/28/24 Bushra Lyman MD [address] [place] [address] [place] [address] Sod Cutter 12/18/20 Angelique Vogel APRN, MANAGER DECISION SUPPORT [address] [place] [address] Nurse Practitioner Advanced Practice Nurse 11/11/21 Memo Plascencia MD [address] [place] [phone] Consulting Physician Oncology 02/28/24 documented as of this encounter
--- OUTSIDE RECORDS SUMMARY | 2025-02-24 18:21 | XMS_ITS | Encounter Summary ---
Author Organization [facility] Address [address] [place] [address] Care Team Providers Care Developmental Therapist Name Role Phone Bushra Lyman MD Unavailable Alexy Molina MD Unavailable Henrik Qureshi MD Unavailable Dayne Aiken DO Unavailable Destiny Alfaro NP Primary Care Provider Carmelo Huang MD Unavailable Reason for Visit * Reason Onset Date Comments Head Injury 02/23/2025 Encounter Details Date Type Department Care Team (Late st Contact Info) Description 02/23/2025 Nurse Triage [facility] Primary Care at [facility] [address] [place] [address] Destiny Alfaro NP [address] [facility] [address] [place] [address] Social History Tobacco Use Types Packs/Day Years Used Date Smoking Tobacco: Former Cigarettes 0.3 0 0 02/24/2024 - 03/04/2024 Vaping Passive Smoke Exposure: Current Smokeless Tobacco: Former Quit: 07/12/2018 Comments:pt states she quit e-cigs three weeks ago Alcohol Use Standard Drinks/Week Comments Not Currently 0 (1 standard drink = 0.6 oz pure alcohol) 1 a month, intake depends on mood [facility] Utilities Answer Date Recorded In the past 12 months has th e [employer], gas, oil, or water company threatened to shut off services in your home? Patient unable to answer 02/19/2025 Social Connection and Isolation Panel [NHANES] A nswer Date Recorded In a typical week, how many times do you talk on the phone with family, friends, or neighbors? Patient unable to answer 02/19/2025 How often do you get togethe r with friends or relatives? Patient unable to answer 02/19/2025 How often do you attend chur ch or scientologist services? Patient unable to answer 02/19/2025 Do you belong to any clubs o r organizations such as taoism groups, unions, fraternal or athletic groups, or school groups? Patient unable to answer 02/19/2025 How often do you attend meet ings of the clubs or organizations you belong to? Patient unable to answer 02/19/2025 Are you , , di vorced, , never , or living with a partner? Patient unable to answer 02/19/2025 AUDIT-C Answer Date Recorded Q1: How often do you have a drink containing alcohol? Never 09/10/2024 Q2: How many drinks containi ng alcohol do you have on a typical day when you are drinking? Patient does not drink Q3: How often do you have si x or more drinks on one occasion? Never 09/10/2024 Overall Financial Resource Strain (CARDIA) Answe r Date Recorded How hard is it for you to pa y for the very basics like food, housing, medical care, and heating? Patient unable to answer 02/19/2025 PHQ-2 Answer Date Recorded PHQ-2 Total Score 2 11/14/2024 [facility] - Occupational Stress Questionnaire Answer Date Recorded Do you feel stress - tense, restless, nervous, or anxious, or unable to sleep at night because your mind is troubled all the time - these days? Rather much 09/02/2024 Hunger Vital Sign Answer Date Recorded Within the past 12 months, y ou worried that your food would run out before you got the money to buy more. Patient unable to answer 02/19/2025 Within the past 12 months, t he food you bought just didn't last and you didn't have money to get more. Patient unable to answer 02/19/2025 PRAPARE - Transportation Answer Date Re corded In the past 12 months, has l ack of transportation kept you from medical appointments or from getting medications? Patient unable to answer 02/19/2025 In the past 12 months, has l ack of transportation kept you from meetings, work, or from getting things needed for daily living? Patient unable to answer 02/19/2025 Housing Stability Vital Sign Answer Rocael e Recorded In the last 12 months, was t here a time when you were not able to pay the mortgage or rent on time? No 10/02/2023 In the last 12 months, how many places have you lived? 2 10/02/2023 In the last 12 months, was t here a time when you did not have a steady place to sleep or slept in a care home (including now)? No 10/02/2023 Housing Stability Vital Sign Answer Rocael e Recorded In the last 12 months, was t here a time when you were not able to pay the mortgage or rent on time? Patient unable to answer 02/19/2025 In the past 12 months, how m any times have you moved where you were living? 1 02/19/2025 At any time in the past 12 m [facility], were you homeless or living in a care home (including now)? Patient unable to answer 02/19/2025 Personal Safety Answer Date Recorded Have you ever been in or are you currently in a harmful physical or emotional relationship or is someone making you feel afraid or unsafe? Denies 02/15/2025 Education Answer Date Recorded What is the highest level of school you have completed or the highest degree you have received? Some college, no degree 01/05/2023 Comments No Sex and Gender Information Value Date Recorded Sex Assigned at Not on file Legal Sex Female 7:38 PM INTERPRETER AND TRANSLATOR Gender Identity Female 09/05/2024 6:58 PM INTERPRETER AND TRANSLATOR Sexual Orientation Straight 09/05/2024 6: 58 PM INTERPRETER AND TRANSLATOR documented as of this encounter Miscellaneous Notes * Telephone Encounter - Elisa Rushing RN - 02/23/2025 10:27 PM CDT Reason for Conversation Head Injury Background Preethi Napier reports she fell head first yesterday into the hardwood floor after drinking. Has a golf ball sized lump on the left side of her head where she fell. She went to the ER via ambulance. Today, she sees dried blood in her nose and ear canal. Reports she has seen this several differenttimes today. Pt reports she began having vision changes after being discharged from the ER. Reportsit looks like I am looking into broken glass. Pt reports headache rating 4/10 she has been takingtylenol and migraine medication which has not lessened the pain. Pt is on Eliquis. Pt reports a lotof nausea, no vomiting. Preethi Napier reports her balance has been off since being discharged from hospital 02/21/25. Pt advised to go to ER now, she is unable to go, she reports her family will kick her out if she goes. No appointments available for tomorrow. FYI sent to PCP. Call back for new or worsening symptoms. Disposition Go to ED Now Reason for Disposition Watery or blood-tinged fluid dripping from the NOSE or EARS now (Exception: Tears from crying or nosebleed from nasal trauma.) No Initial Assessment on file. No Additional Information on file. Protocols Used Head Hhkdia-Teeta-FF * Telephone Encounter - Elisa Rushing RN - 02/23/2025 10:11 PM CDT Regarding: fall, bump on head, and bleeding from ear ----- Message from Gertrude Rae sent at 02/23/2025 10:03 PM CDT ----- Chief Concern:fall, bump on head, and bleeding from ear Duration: yesterday Callback:[phone] Addt Information: fell yesterday and has golf ball size bump on head. Went to er and was sent home.Having headache and bleeding from ear now and nostril. documented in this encounter Plan of Treatment Not on file documented as of this encounter Visit Diagnoses Not on filedocumented in this encounter Care Teams Developmental Therapist Relationship Specialty Start Date End Date Destiny Alfaro NP [address] [place] [address] PCP - General Internal Medicine 11/05/24 Bushra Lyman MD [address] [place] [address] [place] [address] 08/01/18 Alexy Molina MD [address] [place] [address] [address] [facility] [address] [facility] [address] [place] [address] Neurologist Neurology 09/01/18 [place] [address] [address] [facility] [address] [place] [address] Psychiatrist Psychiatry & Neurology 09/01/18 Dayne Aiken DO [address] [place] [id number] Medical Oncologist/Leather Seasoner Hematology and Oncology 03/05/24 Carmelo Huang MD [address] [place] [address] [address] [place] [address] Consulting Physician Neurology 02/21/25 documented as of this encounter
--- OUTSIDE RECORDS SUMMARY | 2025-02-24 18:21 | XMS_ITS | Encounter Summary ---
Author Organization [facility] Address [address] [place] [address] Phone Care Team Providers Care Director New Product Name Role Phone Bushra Lyman MD Primary Care Provider [phone] Buhsra Lyman MD Unavailable [phone] Angelique Vogel APRN, DAY CAMP UNIT LEADER Unavailable [phone] Provider, None Primary Care Provider UnavailDestiny Camargo APRN, CHANGE MANAGEMENT LEAD Primary Care Provid er Memo Plascencia MD Unavailable [phone] Encounter Details Date Type Department Care Team (Late st Contact Info) Description 01/20/2023 Nursing Facility [facility] [address] [place] [id number] Isaias Strange MD [address] [place] [address] Social History Tobacco Use Types Packs/Day Years [...] on file Sexual Orientation Not on file documented as of this encounter Plan of Treatment Not on file documented as of this encounter Visit Diagnoses Not on filedocumented in this encounter Care Teams Director New Product Relationship Specialty Start Date End Date Bushra Lyman MD [address] [place] [address] [place] [address] PCP - General Butt Welder 01/13/21 12/28/23 Provider, None [place] PCP - General 12/29/23 02/27/24 Destiny Alfaro, MANAGER NEWS, CHANGE MANAGEMENT LEAD [address] [facility] [address] [place] [address] [address] PCP - General Advanced Practice Nurse 02/28/24 Bushra Lyman MD [address] [place] [address] [place] [address] Butt Welder 12/18/20 Angelique Vogel APRN, DAY CAMP UNIT LEADER [address] [place] [address] Nurse Practitioner Advanced Practice Nurse 11/11/21 Memo Plascencia MD [address] [place] [phone] Consulting Physician Oncology 02/28/24 documented as of this encounter
--- OUTSIDE RECORDS SUMMARY | 2025-02-24 18:21 | XMS_ITS | Data Portability ---
Author Organization [facility] [employer], Main Office Address [address] [place] [address] Assessment Encounter Date Assessment Date Assessment LastModified by Organization Details LastModified Time 2023 2023 I have reconciled the patient's medications post their discharge from inpatient facility. [email or web address] Not available 2023 08:53:43 12/14/2023 12/14/2023 status post bariatric surgery for weight loss. Having issues. Needs Port-A-Cath for TPN infusions per surgical team and primary care physician. We will schedule Port-A-Cath placement in the operating room using fluoroscopy. Risks and benefits were discussed risks include bleeding, infection, pneumothorax. Not available 12/14/2023 11:56:02 01/04/2024 01/04/2024 status post Port-A-Cath placement. Port was accessed here in my office by myself today. No issues noted. Good blood return. Flushed well. Follow-up here p.r.n. Not available 01/04/2024 12:19:44 Plan of Treatment Reminders Order Date Submit Date Provider Last Modified By Organization Details Last Modified Time Details Appointments None recorded. Lab PPD (purified protein derivative) , skin test 2023 [address] [place], [place], [address], 15:48:10 PPD (purified protein derivative) , skin test 2023 [address] [place], [place], [address], 4 10:33:43 CBC w/ auto diff [address] Lab, #1 [facility] [place], [address], 4 08:54:57 CMP, serum or plasma [address] [place] [address] Lab, #1 [facility] [place], [address], 4 08:54:57 CK (creatine kinase), total, serum [address] [place] [address], #1 [facility] [place], [address], 4 08:54:57 HbA1c (hemoglobin A1c), blood [address] [place] [address] Lab, #1 [facility] [place], [address], 4 08:54:57 lipid panel, serum [address] [place] [address], #1 [facility] [place], [address], 4 08:54:57 vitamin D, 25-hydroxy, total, serum [address] [place] [address] Lab, #1 [facility] [place], [address], 4 08:54:57 TSH + free T4, serum [address] [place] [address] Lab, #1 [facility] [place], [address], 4 08:54:56 thyroid peroxidase (tpo) Ab, serum [address] [place] [address] Lab, #1 [address] [place], [place], [address], 4 08:54:56 thyroglobul in Ab, serum 2023 024 [email or web address] 2 [facility] Lab, #1 [address] [place], [place], [address], 4 08:54:57 culture, aerobic + anaerobic 2022 [email or web address] 2 [facility] (Lab), [address] [place], [address], 4 12:37:18 Referral general surgeon referral - we need to order labs , she had to have a central line in the hospital , veins difficult to find for phlebotomy. Please consider placing a port ? Thank you . Please call patient to schedule an appointment . 2023 024 [email or web address] August De Anda MD, [address] [facility], [facility] [place], [address], 4 08:44:55 Procedures None recorded. Surgeries None recorded. Imaging None recorded. Medication Orders Tubersol 5 tub. unit/0.1 mL intradermal injection solution 2023 024 [email or web address] Not available 4 14:02:51 Tubersol 5 tub. unit/0.1 mL intradermal injection solution 2023 024 [email or web address] Not available 4 11:36:26 sertraline 100 mg tablet 2022 023 [id number], [address], [place], [place], [id number], 3 09:15:39 Patient Targets Encounter Date Encounter Id Patient Goals Patient Target Last Modified By Organization Details Last Modified Time 2023 [id number] she will call her bariatric surgeon . I will be glad to refer to wound care if they do not want to manage this infection. She cannot do tube feedings at this point , it hurts too much . [email or web address] Not available 2023 09:29:28 Patient Instructions Encounter Date Encounter Id Patient Instructions Last Modified By Organization Details Last Modified Time 2023 [id number] Thank you for your visit to our office today. We would like to request that you reach out to your referring or previous provider and request that they send us a Summary of Care in electronic form, so that we may have it on file in your medical record. At your visit, we had the medical records we needed to provide you with the best possible care; however, for insurance purposes, an electronic Summary of Care is beneficial. Thank you for your assistance in obtaining this information and we look forward to providing continued care to you. Please review your medication list from the Summary of Care for this visit. If there are any differences from what you are currently taking at home, please call us to discuss. Thank you for your visit to our office today. We would like to request that you reach out to your referring or previous provider and request that they send us a Summary of Care in electronic form, so that we may have it on file in your medical record. At your visit, we had the medical records we needed to provide you with the best possible care; however, for insurance purposes, an electronic Summary of Care is beneficial. Thank you for your assistance in obtaining this information and we look forward to providing continued care to you. Please review your medication list from the Summary of Care for this visit. If there are any differences from what you are currently taking at home, please call us to discuss. [email or web address] Not available 2023 08:53:43 Homebound Status : Required Home Health Services: Durable Medical Equipment needed: Billing Guidelines CPT code 20215- Transitional Care Management services with moderate medical decision complexity (nglc-un-cbdn visit within 14 days of discharge). CPT code 52907- Transitional Care Management services with high medical decision complexity (zrru-cc-lguz visit within 7 days of discharge). [email or web address] Not available 2023 08:49:22 Reason for Referral General Surgeon Referral for Obesity we need to order labs , she had to have a central line in the hospital , veins difficult to find for phlebotomy. Please consider placing a port ? Thank you . Please call patient to schedule an appointment. Referring Physician: Ge Leal, Family Medicine, Encounter Date: 10/11/2023 Results Created Date Observation Date Name Description Value Unit Range Abnormal Flag Note LastModifiedBy Organization Detail LastModifiedTime 10/13/19 24 10/13/2023 PPD (germaine fied prote in deriv ative ), skin test TB negati ve Not Available [address] [place], [place], [address], 10/11/2023 10:51:04 10/23/19 24 10/23/2023 PPD (germaine fied prote in deriv ative ), skin test TB pt did not return to read Not Available [address] [place], [place], [address], 10/18/2023 11:39:24 12/18/19 24 12/18/2023 URINE HCG QUAL/ POINT OF CARE ur preg NEGATI VE TESTI NG PERFO RMED BY SURGI TAMMY SERVI JOHNNY PERSO NNEL. Not Available [facility] (Lab) [address] [place], [address], 12/18/2023 09:35:55 12/18/19 24 12/18/2023 URINE HCG QUAL/ POINT OF CARE lot no. [id number] Not Available [facility] (Lab) [address] [place], [address], 12/18/2023 09:35:55 12/18/19 24 12/18/2023 URINE HCG QUAL/ POINT OF CARE pos QC POSITI VE Not Available [facility] (Lab) [address] [place], [address], 12/18/2023 09:35:55 12/18/19 24 12/18/2023 URINE HCG QUAL/ POINT OF CARE neg QC NEGATI VE Not Available [facility] (Lab) [address] [place], [address], 12/18/2023 09:35:55 12/18/19 24 12/18/2023 RF, david [place], for centr al venou s acces s devic e place [facility] [place] [facility] [place] [address] [place] [address] [phone] Patien t Name: SHAUN THOMAS Access ion #: [id number] Sex: F : 1994 9 Dictat ed By: Jamie Georges Attend ing Physic isabelle: EVAN LEWIS Ordersheeba padgett Physic isabelle: EVAN LEWIS Exam Date: 2023 13:16 PM Exam Name: XR FLUORO CVAD GUIDED W CHEST Admitt ing Diagno sis(es ): CHEST RADIOG RAPH Indica tion:P ortaca th Techni que: Single fronta l view of the chest was obtain ed Compar vik: none FINDIN GS: Lines and Tubes: Right subcla vian approa ch with tip in the SVC Lungs: No focal consol idatio n. Pleura : No effusi on. No pneumo thorax . Cardio medias tinal contou rs: Unrema rkable Bones: No acute osseou s abnorm ality. IMPRES NORMA: No acute cardio pulmon haleigh diseas e. Electr onical ly Signed by: Jamie Georges at 2023 14:07: 48 PM Page [address] (Imaging) [address] [place] [address], [address], 12/22/2023 09:10:09 12/18/19 24 12/18/2023 imagi ng/di agnos tic resul t No observ ation record ed. [address] [place], [address], 12/22/2023 09:15:50 Result Notes Documentation Provider Name and Address Organization Details Recorded Time Rf, Guidance, For Central Venous Access Device Placement : [facility] [address] [id number] Patient Name: SHAUN MCCARTY Sex: F : 1995 Dictated By: Jamie Georges Attending Physician: AUGUST WILKINSON Ordering Physician: AUGUST WILKINSON Exam Date: 12/18/2023 13:16 PM Exam Name: XR FLUORO CVAD GUIDED W CHEST Admitting Diagnosis(es): CHEST RADIOGRAPH Indication:Portacath Technique: Single frontal view of the chest was obtained Comparison: none FINDINGS: Lines and Tubes: Right subclavian approach with tip in the SVC Lungs: No focal consolidation. Pleura: No effusion. No pneumothorax. Cardiomediastinal contours: Unremarkable Bones: No acute osseous abnormality. IMPRESSION: No acute cardiopulmonary disease. Page 1 ANGELA Lanier, [employer] 12/22/2023 09:10:09 Problems Name Problem SNOMED Code Status Onset Date Resolution Date Notes Provider Name and Address Organization Details Recorded Time Asthma 529476432 Active Not Available Replaced by [facility] 3 20:20:20 Gastroeso phageal reflux disease 441813464 Active Not Available [facility] 3 20:20:20 Depressiv e disorder 35244198 Active Not Available [facility] 3 20:20:20 Obese 486372259 Active Not Available [facility] 3 20:20:20 Anxiety 70112329 Active Not Available [facility] 3 20:20:20 Epilepsy 06187248 Active 2018 Not Available [facility] 3 20:20:20 Urinary symptoms 090048124 Active 2021 Not Available [facility] 3 20:20:20 Infection of skin and/or subcutane ous tissue 51621217 Active 2022 Bushra Lyman MD [address] [place] [address], [facility] [address], [place], [address] , [employer] 3 15:22:03 Malaise and fatigue 220964796 Active 2022 Bushra Lyman MD [address], [place], [address] , [facility] 3 15:24:48 Intractab le nausea and vomiting 550254995 Active 2022 Bushra Lyman MD [address], [place], [address] , [facility] 3 06:53:48 Chronic abdominal pain 637567096 Active 2022 Bushra Lyman MD [address], [place], [address] , [facility] - [facility] 3 09:55:02 Nutrition al disorder 1184038 Active 2022 Bushra Lyman MD [address], [place], [address] , [facility] 3 09:57:21 Seizure disorder 921487963 Active 2022 Bushra Lyman MD [address], [place], [address] , [facility] - [facility] 3 09:58:01 Chronic vomiting 68090123 Active 2022 Bushra Lyman MD [address], [place], [address] , [facility] 3 10:03:42 Weight gain 7932195 Active 2022 DEMARCO Gee, [place] - [facility] 3 09:35:29 Nausea and vomiting 61061492 Active 2022 Bushra Lyman MD [address], [place], [address] , [facility] 3 09:52:26 Cough 43773213 Active 2022 Bushra Lyman MD [address], [place], [address] , [place] [facility] 3 13:20:16 Pain of right knee joint 145971500857 100 Active 2022 Bushra Lyman MD [address], [place], [address] , [place] [facility] 3 15:33:24 Obesity 941673523 Active 2022 Bushra Lyman MD [address], [place], [address] , [place] [facility] 3 15:34:30 Mixed anxiety and depressiv e disorder 594891900 Active 2022 Bushra Lyman MD [address], [place], [address] , [place] [facility] 3 10:00:56 Dental abscess 255656044 Active 2022 Bushra Lyman MD [address], [place], [address] , [place] [facility] 3 09:47:25 Infection of tooth 427157124 Active 2022 Bushra Lyman MD [address], [place], [address] , [place] [facility] 3 15:02:24 Chronic pain 01959077 Active 2022 Bushra Lyman MD [address], [place], [address] , [place] [facility] 3 14:31:29 Diarrhea 17833875 Active 2022 Bushra Lyman MD [address], [place], [address] , [place] [facility] 3 14:12:27 Hypothyro idism 25852201 Active 2022 Bushra Lyman MD [address], [place], [address] , [place] [facility] 3 14:13:23 Morbid obesity 869879053 Active 2022 Bushra Lyman MD [address], [place], [address] , [place] [facility] 3 14:14:55 Celluliti s of skin 226914610 Active 2022 CR Franklin [address], [place], [address] , [place] [facility] 3 09:11:29 Gastrosto my tube in situ 033106912 Active 2022 pulled in August 2023 CR Franklin [address], [place], [address] , [place] [facility] 4 10:26:47 Opioid withdrawa l 12955269 Active 2022 CR Franklin [address], [place], [address] , [place] [facility] 3 11:25:17 Vitamin D below reference range 593796935 Active 2023 CR Franklin [address], [place], [address] , [place] [facility] 4 12:47:24 Chronic low back pain 531564309 Active 2023 Lucy Simmons RN null, [place] [facility] 4 16:42:12 Edema 979793423 Active 2023 Lucy Simmons RN null, [place] [facility] 4 16:46:13 Edema of lower extremity 453771641 Active 2023 Lucy Simmons RN null, [place] [facility] 4 16:47:17 Bilateral arthritis of knees 519691076232 9108 Active 2023 CR Franklin [address], [place], [address] , [facility] [employer] [facility] 4 17:08:06 Under immunized 153808999 Active 2023 CR Franklin [address], [place], [address] , [facility] [employer] [facility] 4 10:48:44 Tuberculo sis screening Active 2023 CR Franklin [address], [place], [address] , [facility] [employer] [facility] 4 10:50:25 Adult health examinati on Active 2023 CR Franklin [address], [place], [address] , [facility] Room n House [facility] 4 11:10:19 Pain of left knee joint 672856026910 107 Active 2023 Lucy Simmons RN [facility], [facility] Room n House [facility] 4 12:48:29 Cramp in lower limb 960819472 Active 2023 CR Franklin [address], [place], [address] , [facility] Room n House [facility] 4 16:21:50 Problem Notes None recorded. Procedures Surgical History Date Name Laterality Status Provider Name and Address Organization Details Recorded Time 08/02/20 Transitional_Care _Management completed Lucy Simmons RN [facility] Room n House [facility] 2023 08:49:23 Gallbladder Surgery completed Not Available [facility] 10/05/2022 20:19:29 Gastric Bypass completed Not Available [facility] 10/05/2022 20:19:29 Tonsillectomy completed Not Available [employer] 10/05/2022 20:19:29 other completed Ibeth Herrera MA [facility] Room n House [facility] 12/14/2023 11:21:47 other completed Ibeth Herrera MA [facility] Room n House [facility] 12/14/2023 11:24:12 Imaging Results None recorded. Procedure Notes None recorded. Medical Equipment None Reported. Allergies Allergen ID Allergen Name Allergen Category Reaction Reaction Severity Criticality Documentation Date Start Date Code Code System Note Provider Name and Address Organization Details Recorded Time 35532 acetamino phen / oxycodone medicatio n Not available Not available Not available 10/05/2022 37952 3 RxNorm Not Available Replaced by [facility] 3 20:21:29 19854 hydrocodo ne Not available Not available Not available Not available 10/05/2022 5489 RxNorm CESAR Araiza [facility] [employer] 4 15:37:54 66472 clindamyc in Not available Not available Not available Not available 10/05/2022 2582 RxNorm Not Available Replaced by [facility] 3 20:21:29 84688 azithromy raffi medicatio n Not available Not available Not available 10/05/2022 06735 RxNorm Not Available Replaced by [facility] 3 20:21:29 98054 Desi medicatio n Not available Not available Not available 10/05/2022 46421 6 RxNorm Not Available Replaced by [facility] 3 20:21:29 63350 lithium Not available Not available Not available Not available 10/09/2023 6448 RxNorm CESAR Araiza, [facility] [employer] 4 15:38:09 Medications Name Sig Start Date Stop Date Status Note LastModified by Organization Details LastModified Time status covid-19/fl u a-b antigen tst TEST DIRECTED TODAY active Not Available Not Available No t Available id now influenza a & b 2 test kit TEST DIRECTED TODAY 10/21 completed Not Available Not Available Not Available multivitami n tablet TAKE 1 TABLET BY MOUTH DAILY active Not Available Not Available No t Available fluoxetine 40 mg capsule TAKE 1 CAPSULE BY MOUTH EVERY DAY FOR 7 DAYS 03/23 completed Not Available Not Available Not Available cyclobenzap rine 10 mg tablet TAKE 1 TABLET BY MOUTH DAILY active Not Available Not Available No t Available hydroxyzine pamoate 100 mg capsule 10/21 completed Not Available Not Available Not Available amoxicillin 500 mg capsule TAKE ONE CAPSULE BY MOUTH EVERY 8 HOURS FOR 10 DAYS 11/11 completed Not Available Not Available Not Available buspirone 5 mg tablet TAKE 2 TABLETS BY MOUTH AT NIGHT 03/23 completed Not Available Not Available Not Available oxcarbazepi ne 150 mg tablet 08/16 completed Not Available Not Available Not Available cefprozil 500 mg tablet 10/21 completed Not Available Not Available Not Available clonidine HCl 0.1 mg tablet TAKE 1 TABLET BY MOUTH TWICE DAILY active Not Available Not Available No t Available venlafaxine ER 75 mg capsule,ext ended release 24 hr 04/18 completed Not Available Not Available Not Available gabapentin 600 mg tablet active Not Available Not Available Not Available doxycycline hyclate 100 mg capsule TAKE 1 CAPSULE BY MOUTH TWICE DAILY FOR 7 DAYS 08/02 completed Not Available Not Available Not Available clindamycin HCl 300 mg capsule TAKE 1 CAPSULE BY MOUTH EVERY 8 HOURS FOR 10 DAYS 03/23 completed Not Available Not Available Not Available albuterol sulfate 2.5 mg/3 mL (0.083 %) solution for nebulizatio n 06/02 completed Not Available Not Available Not Available loperamide 2 mg capsule 08/02 completed Not Available Not Available Not Available trazodone 50 mg tablet TK 1 T PO HS PRN 08/11 completed Not Available Not Available Not Available Sulfatrim 200 mg-40 mg/5 mL oral suspension active Not Available Not Available N ot Available tizanidine 4 mg tablet 08/02 completed Not Available Not Available Not Available fluconazole 150 mg tablet TAKE 1 TABLET BY MOUTH EVERY DAY FOR 1 DAY 03/23 completed Not Available Not Available Not Available benzonatate 200 mg capsule TAKE 1 CAPSULE BY MOUTH THREE TIMES DAILY NEEDED 10/10 completed Not Available Not Available Not Available doxepin 25 mg capsule TAKE ONE CAPSULE BY MOUTH EVERY DAY 08/02 completed Not Available Not Available Not Available levetiracet am 500 mg tablet TAKE 2 TABLET BY MOUTH TWICE A DAY 10/16 completed Not Available Not Available Not Available chlorzoxazo ne 500 mg tablet TAKE 1/2 TO 1 TABLET BY MOUTH EVERY 6 HOURS NEEDED FOR SPASM HEADACHE active Not Available Not Available No t Available ranitidine 300 mg tablet 04/18 completed Not Available Not Available Not Available hydrocodone 5 mg-acetamin ophen 325 mg tablet TAKE 1 TO 2 TABLETS BY MOUTH EVERY 4 HOURS NEEDED FOR MODERATE TO SEVERE PAIN 08/02 completed Not Available Not Available Not Available promethazin e 6.25 mg/5 mL oral syrup TAKE 10 ML BY MOUTH EVERY 6 HOURS NEEDED FOR NAUSEA OR VOMITING 10/10 completed Not Available Not Available Not Available sucralfate 100 mg/mL oral suspension SHAKE LIQUID AND TAKE 10 ML BY MOUTH FOUR TIMES DAILY active Not Available Not Available No t Available promethazin e 25 mg rectal suppository INSERT 1 SUPPOSITO RY INTO THE RECTUM EVERY 6 HOURS NEEDED FOR NAUSEA OR VOMITING active Not Available Not Available No t Available ondansetron HCl 8 mg tablet TK 1 T PO Q 8 H PRF NAUSEA active Not Available Not Available No t Available fluconazole 200 mg tablet 03/23 completed Not Available Not Available Not Available sucralfate 1 gram tablet TAKE 1 TABLET BY MOUTH FOUR TIMES DAILY WITH MEALS AND NIGHTLY. MIX WITH 30 MLS OF WATER TO MAKE A SUSPENSIO N active Not Available Not Available No t Available promethazin e 12.5 mg tablet TK 1 T PO Q 6 H active Not Available Not Available No t Available naltrexone 50 mg tablet TK 1 T PO D active Not Available Not Available No t Available ondansetron HCl 4 mg tablet TAKE 1 TABLET BY MOUTH EVERY 8 HOURS active Not Available Not Available No t Available prednisone 20 mg tablet TAKE 2 TABLETS BY MOUTH TWICE DAILY X 2 DAYS, 1 TABLET TWICE DAILY X 5 DAYS, 1/2 TABLET TWICE DAILY X 2 DAYS, 1/2 TABLET X 1 DAY active Not Available Not Available No t Available Tubersol 5 tub. unit/0.1 mL intradermal injection solution inject 0.5 ml 2023 active Not Available Not Available Not Avai lable clonazepam 0.5 mg tablet 06/02 completed Not Available Not Available Not Available dexamethaso ne 6 mg tablet TK 1 T PO D FOR 4 DAYS WF 10/09 completed Not Available Not Available Not Available sertraline 100 mg tablet TAKE 1 TABLET BY MOUTH EVERY DAY IN THE MORNING active Not Available Not Available No t Available hydroxyzine pamoate 50 mg capsule TAKE 1 CAPSULE BY MOUTH AT NIGHT NEEDED 08/02 completed Not Available Not Available Not Available oxycodone 5 mg/5 mL oral solution TAKE 5 ML BY MOUTH EVERY 6 HOURS NEEDED FOR PAIN 08/02 completed Not Available Not Available Not Available diphenoxyla te-atropine 2.5 mg-0.025 mg tablet Take 1 tablet 4 times a day by oral route as needed. 10/21 completed Not Available Not Available Not Available topiramate 25 mg tablet active Not Available Not Available Not Available lithium carbonate 150 mg capsule TK ONE C PO Q NIGHT 04/18 completed Not Available Not Available Not Available potassium chloride ER 10 mEq tablet,exte nded release TAKE 1 TABLET BY MOUTH EVERY DAY active Not Available Not Available No t Available hydroxyzine HCl 50 mg tablet 08/02 completed Not Available Not Available Not Available Klor-Con 20 mEq oral packet Take 1 packet every day by oral route. 08/02 completed Not Available Not Available Not Available oxcarbazepi ne 300 mg tablet TK 1 T PO BID 08/11 completed Not Available Not Available Not Available phentermine 37.5 mg tablet TAKE 1 TABLET BY MOUTH EVERY DAY 08/02 completed Not Available Not Available Not Available acetaminoph en 300 mg-codeine 30 mg tablet TAKE 1 TO 2 TABLETS BY MOUTH EVERY 6 HOURS NEEDED FOR PAIN. 08/11 completed Not Available Not Available Not Available prochlorper azine maleate 10 mg tablet TAKE 1 TABLET BY MOUTH EVERY 8 HOURS NEEDED FOR NAUSEA OR VOMITING active Not Available Not Available No t Available ciprofloxac in 500 mg tablet Take 1 tablet every 12 hours by oral route for 5 days. 04/18 completed Not Available Not Available Not Available sulfamethox azole 800 mg-trimetho prim 160 mg tablet TAKE 1 TABLET BY MOUTH EVERY 12 HOURS 08/02 completed Not Available Not Available Not Available hydrocodone 10 mg-acetamin ophen 325 mg tablet 06/19 completed Not Available Not Available Not Available omeprazole 40 mg capsule,del ayed release TAKE 1 CAPSULE BY MOUTH TWICE DAILY. OPEN CAPSULE AND SPRINKLE ON APPLESAUC E active Not Available Not Available No t Available tramadol 50 mg tablet TAKE 1 TABLET BY MOUTH EVERY 8 HOURS NEEDED active Not Available Not Available No t Available quetiapine 100 mg tablet 06/02 completed Not Available Not Available Not Available amoxicillin 500 mg tablet TAKE 1 TABLET BY MOUTH THREE TIMES DAILY FOR 10 DAYS 11/24 completed Not Available Not Available Not Available ondansetron 8 mg disintegrat ing tablet DISSOLVE 1 TABLET ON THE TONGUE EVERY 8 HOURS NEEDED 08/02 completed Not Available Not Available Not Available lamotrigine 25 mg tablet TAKE 3 TABLETS VIA ENTERAL TUBE TWICE DAILY 03/23 completed Not Available Not Available Not Available potassium chloride 20 mEq/15 mL oral liquid 10/16 completed Not Available Not Available Not Available ketorolac 10 mg tablet 04/18 completed Not Available Not Available Not Available levothyroxi ne 75 mcg tablet 01/05 completed Not Available Not Available Not Available zonisamide 100 mg capsule 04/18 completed Not Available Not Available Not Available levothyroxi ne 100 mcg tablet 04/18 completed Not Available Not Available Not Available oxycodone-a cetaminophe n 5 mg-325 mg tablet 06/19 completed Not Available Not Available Not Available amoxicillin 875 mg tablet TAKE 1 TABLET BY MOUTH EVERY 12 HOURS 05/18 completed Not Available Not Available Not Available citalopram 20 mg tablet 06/02 completed Not Available Not Available Not Available famotidine 20 mg tablet active Not Available Not Available Not Available amitriptyli ne 25 mg tablet Take 1 tablet every day by oral route at bedtime. active Not Available Not Available No t Available magnesium oxide 400 mg (241.3 mg magnesium) tablet TK 1 T PO D 10/10 completed Not Available Not Available Not Available morphine 20 mg/5 mL (4 mg/mL) oral solution Take 2.5 mL every 4 hours by oral route as needed. 01/05 completed Not Available Not Available Not Available trazodone 100 mg tablet TAKE 1 AND 1/2 TABLETS BY MOUTH AT BEDTIME 08/02 completed Not Available Not Available Not Available meclizine 25 mg tablet TAKE ONE TABLET BY MOUTH THREE TIMES A DAY NEEDED FOR DIZZINESS 01/05 completed Not Available Not Available Not Available lithium carbonate 300 mg capsule 04/18 completed Not Available Not Available Not Available rizatriptan 10 mg disintegrat ing tablet TK 1 T PO PRF MIGRAINE FOR 30 DAYS 10/09 completed Not Available Not Available Not Available hydrocortis one 1 % topical cream 08/11 completed Not Available Not Available Not Available levothyroxi ne 50 mcg tablet TAKE 1 TABLET BY MOUTH IN THE ACID EXTRACTOR BEFORE BREAKFAST active Not Available Not Available No t Available cephalexin 500 mg capsule TAKE 1 CAPSULE BY MOUTH EVERY 6 HOURS UNTIL GONE active Not Available Not Available No t Available pantoprazol e 40 mg tablet,myrna yed release TAKE 1 TABLET BY MOUTH EVERY DAY 08/02 completed Not Available Not Available Not Available mirtazapine 30 mg tablet TAKE 1 TABLET BY MOUTH EVERY DAY AT BEDTIME active Not Available Not Available No t Available trazodone 150 mg tablet 08/02 completed Not Available Not Available Not Available buspirone 30 mg tablet active Not Available Not Available Not Available buspirone 10 mg tablet TAKE 1 TABLET BY MOUTH TWICE DAILY 08/02 completed Not Available Not Available Not Available clotrimazol e-betametha sone 1 %-0.05 % topical cream APPLY TOPICALLY TO THE AFFECTED AND SURROUNDI NG AREAS OF SKIN TWICE DAILY IN THE MORNING AND IN THE EVENING FOR 2 WEEKS 08/02 completed Not Available Not Available Not Available prednisone 50 mg tablet 06/19 completed Not Available Not Available Not Available lidocaine 5 % topical patch active Not Available Not Available Not Available promethazin e 25 mg tablet TAKE 1 TABLET BY MOUTH EVERY 6 HOURS NEEDED FOR NAUSEA OR VOMITING 03/23 completed Not Available Not Available Not Available nortriptyli ne 10 mg/5 mL oral solution active Not Available Not Available Not Available fluoxetine 10 mg capsule TAKE 1 CAPSULE BY MOUTH EVERY DAY 03/23 completed Not Available Not Available Not Available morphine 10 mg/5 mL oral solution TAKE 10 ML BY MOUTH EVERY 4 HOURS 12/29 completed Not Available Not Available Not Available omeprazole 20 mg capsule,del ayed release 08/02 completed Not Available Not Available Not Available folic acid 1 mg tablet TAKE 1 TABLET BY MOUTH DAILY. active Not Available Not Available No t Available levetiracet am 750 mg tablet TK 2 TS PO BID . MUST SEE DOCTOR FOR REFILL. 08/11 completed Not Available Not Available Not Available furosemide 20 mg tablet TAKE 1 TABLET BY MOUTH EVERY DAY active Not Available Not Available No t Available mirtazapine 15 mg tablet TAKE 1 TABLET BY MOUTH EVERY DAY AT BEDTIME active Not Available Not Available No t Available gabapentin 100 mg capsule 01/05 completed Not Available Not Available Not Available ergocalcife rol (vitamin D2) 1,250 mcg (50,000 unit) capsule TAKE ONE CAPSULE BY MOUTH EVERY WEEK WITH MEALS FOR 30 DAYS active Not Available Not Available No t Available lorazepam 1 mg tablet 01/05 completed Not Available Not Available Not Available epinephrine 0.3 mg/0.3 mL injection, auto-inject or active Not Available Not Available Not Available mirtazapine 15 mg disintegrat ing tablet DISSOLVE 1 TABLET ON THE TONGUE AT BEDTIME 10/10 completed Not Available Not Available Not Available cefaclor 250 mg/5 mL oral suspension TAKE 10 ML BY MOUTH EVERY 8 HOURS BY MOUTH FOR 10 DAYS 08/02 completed Not Available Not Available Not Available scopolamine 1 mg over 3 days transdermal patch UNW AND JOANNA 1 PA TO SKIN Q 72 H PRN N / VOM active Not Available Not Available No t Available methylpredn isolone 4 mg tablets in a dose pack FOLLOW PACKAGE DIRECTION S active Not Available Not Available No t Available albuterol sulfate HFA 90 mcg/actuati on aerosol inhaler INHALE 2 PUFFS BY MOUTH EVERY 4 HOURS active Not Available Not Available No t Available paroxetine 40 mg tablet 06/19 completed Not Available Not Available Not Available morphine 15 mg immediate release tablet TAKE 1 TABLET BY MOUTH TWICE DAILY 05/15 completed Not Available Not Available Not Available ondansetron 4 mg disintegrat ing tablet DISSOLVE 1 TABLET UNDER THE TONGUE EVERY 6 HOURS NEEDED FOR NAUSEA OR VOMITING active Not Available Not Available No t Available cefdinir 300 mg capsule 04/18 completed Not Available Not Available Not Available topiramate 100 mg tablet TK 1 T PO BID FOR 30 DAYS active Not Available Not Available No t Available losartan 100 mg tablet active Not Available Not Available Not Available fluoxetine 20 mg capsule TAKE 1 CAPSULE BY MOUTH EVERY DAY STARTING ON 02/17 completed Not Available Not Available Not Available sertraline 50 mg tablet TAKE 1 AND 1/2 TABLETS BY MOUTH DAILY active Not Available Not Available No t Available lamotrigine 100 mg tablet TAKE 1 TABLET BY MOUTH TWICE DAILY 10/10 completed Not Available Not Available Not Available naproxen 500 mg tablet 08/02 completed Not Available Not Available Not Available diazepam 5 mg tablet active Not Available Not Available No t Available metoclopram trista 10 mg tablet TAKE 1 TABLET BY MOUTH EVERY 6 HOURS NEEDED FOR NAUSEA OR VOMITING active Not Available Not Available No t Available amoxicillin 875 mg-potassiu m clavulanate 125 mg tablet TK 1 T PO Q 12 H active Not Available Not Available No t Available buspirone 15 mg tablet TAKE 1 TABLET BY MOUTH THREE TIMES DAILY active Not Available Not Available No t Available hydroxyzine pamoate 25 mg capsule TAKE 1 CAPSULE BY MOUTH TWICE DAILY NEEDED active Not Available Not Available No t Available Senna-S 8.6 mg-50 mg tablet TK 2 TS PO ONCE D PRF CONSTIPAT ION 03/23 completed Not Available Not Available Not Available azithromyci n 500 mg tablet 06/19 completed Not Available Not Available Not Available aripiprazol e 10 mg tablet TAKE 1 TABLET BY MOUTH EVERY DAY 08/02 completed Not Available Not Available Not Available cyclobenzap rine 5 mg tablet Take 1 tablet 3 times a day by oral route as needed for 7 days. 08/02 completed Not Available Not Available Not Available aripiprazol e 5 mg tablet TAKE 1 TABLET BY MOUTH EVERY DAY 08/02 completed Not Available Not Available Not Available Klor-Con M20 mEq tablet,exte nded release 01/05 completed Not Available Not Available Not Available levetiracet am 100 mg/mL oral solution TAKE 15 ML BY MOUTH TWICE DAILY active Not Available Not Available No t Available June FE 08/26 (28) 1 mg-20 mcg (21)/75 mg (7) tablet 04/18 completed Not Available Not Available Not Available hydrocodone 7.5 mg-acetamin ophen 325 mg/15 mL oral solution 03/23 completed Not Available Not Available Not Available topiramate 50 mg tablet TK 2 TS PO BID 01/05 completed Not Available Not Available Not Available mirtazapine 7.5 mg tablet TAKE 1 TABLET BY MOUTH DAILY AT BEDTIME active Not Available Not Available No t Available nitrofurant oin monohydrate /macrocryst als 100 mg capsule 10/16 completed Not Available Not Available Not Available calcium acetate(rolly sphate binders) 667 mg capsule TK 2 CS PO BID WC active Not Available Not Available No t Available acamprosate 333 mg tablet,myrna yed release TAKE 2 TABLETS BY MOUTH THREE TIMES DAILY 08/11 completed Not Available Not Available Not Available duloxetine 30 mg capsule,del ayed release 01/05 completed Not Available Not Available Not Available duloxetine 60 mg capsule,del ayed release TK 1 C PO D active Not Available Not Available No t Available carbamazepi ne ER 300 mg capsule,ext ended release [id number] TK 1 C PO BID 11/24 completed Not Available Not Available Not Available levetiracet am 1,000 mg tablet TK ONE AND A HALF T PO BID 01/05 completed Not Available Not Available Not Available aripiprazol e 2 mg tablet 08/16 completed Not Available Not Available Not Available Nascobal 500 mcg/spray nasal spray 08/16 completed Not Available Not Available Not Available mesalamine 1.2 gram tablet,myrna yed release 08/16 completed Not Available Not Available Not Available FeroSul 325 mg (65 mg iron) tablet TAKE 1 TABLET BY MOUTH THREE TIMES DAILY WITH MEALS active Not Available Not Available No t Available desvenlafax ine succinate ER 50 mg tablet,exte nded release 24 hr TAKE 1 TABLET BY MOUTH EVERY DAY 08/02 completed Not Available Not Available Not Available Xifaxan 550 mg tablet 08/02 completed Not Available Not Available Not Available Vimpat 10 mg/mL oral solution TAKE 15ML BY MOUTH TWICE DAILY 08/11 completed Not Available Not Available Not Available buprenorphi ne 2 mg-naloxone 0.5 mg sublingual film DISSOLVE 2 FILMS UNDER THE TONGUE ONCE DAILY FOR 5 DAYS. 10/10 completed Not Available Not Available Not Available buprenorphi ne 8 mg-naloxone [address] 1 FILM UNDER THE TONGUE DAILY active Not Available Not Available No t Available vilazodone 10 mg tablet TAKE 1 TABLET BY MOUTH EVERY DAY WITH FOOD 08/02 completed Not Available Not Available Not Available fluoxetine 60 mg tablet TAKE 1 TABLET BY MOUTH EVERY DAY 03/23 completed Not Available Not Available Not Available Chantix Starting Month Box 0.5 mg (11)-1 mg (42) tablets in dose pack 06/19 completed Not Available Not Available Not Available Linzess 145 mcg capsule 08/02 completed Not Available Not Available Not Available buprenorphi ne 4 mg-naloxone [address] 1 FILM UNDER THE TONGUE EVERY DAY active Not Available Not Available No t Available Eliquis 5 mg tablet TAKE 1 TABLET BY MOUTH TWICE DAILY active Not Available Not Available No t Available dicyclomine 10 mg/5 mL oral solution 08/16 completed Not Available Not Available Not Available Xarelto DVT-PE Treatment 30-Day Starter 15 mg(42)-20 mg(9) tablet pack 10/21 completed Not Available Not Available Not Available Pristiq 25 mg tablet,exte nded release Take 1 tablet every day by oral route. 08/02 completed Not Available Not Available Not Available naloxone 4 mg/actuatio n nasal spray CALL 911. SPR CONTENTS OF ONE SPRAYER (0.1ML) INTO ONE NOSTRIL. REPEAT IN 2-3 MIN IF SYMPTOMS OF OPIOID EMERGENCY PERSIST, ALTERNATE NOSTRILS active Not Available Not Available No t Available Vraylar 1.5 mg capsule 08/02 completed Not Available Not Available Not Available Vraylar 4.5 mg capsule TAKE 1 CAPSULE BY MOUTH DAILY active Not Available Not Available No t Available Vraylar 3 mg capsule TAKE 1 CAPSULE BY MOUTH EVERY DAY active Not Available Not Available No t Available carbamazepi ne ER 300 mg capsule,ext end release 12 hr(mood stabilizing ) Take 1 capsule twice a day by oral route. 08/11 completed Not Available Not Available Not Available Emend 125 mg (25 mg/mL final conc.) oral suspension SHAKE LIQUID AND TAKE 25 MG(1 ML) BY MOUTH ONCE A DAILY 10/10 completed Not Available Not Available Not Available [facility] ODT 75 mg disintegrat ing tablet active Not Available Not Available N ot Available ID NOW COVID-19 Test Kit TEST DIRECTED TODAY 10/21 completed Not Available Not Available Not Available Breztri Aerosphere 160 mcg-9mcg-4. 8mcg/actuat ion HFA aerosol inhaler INHALE 2 PUFFS BY MOUTH TWICE DAILY DIRECTED active Not Available Not Available No t Available Wegovy 0.25 mg/0.5 mL subcutaneou s pen injector Inject by subcutane ous route for 28 days. 08/02 completed Not Available Not Available Not Available Vitals Date Recorded Body height Body mass index (BMI) Body weight Body temperature Heart rate Oxygen saturation Oxygen saturation in Arterial blood by Pulse oximetry Respiratory rate Systolic And Diastolic Provider Name and Address Organization Details Last Updated DateTime 4 165.1 cm 51.1 kg/m2 698184. 86 g 98.5 [degF] 84 /min 98 % 98 % 16 /min 116/74 mm[Hg] Lucy Simmons RN [facility] [employer] [facility] 4 10:14:11 Date Recorded Body height Body mass index (BMI) Body weight Body temperature Heart rate Respiratory rate Provider Name and Address Organization Details Last Updated DateTime 4 165.1 cm 51.1 kg/m2 271622. 86 g 98.6 [degF] 82 /min 14 /min Ibeth Herrera MA [facility] [employer] [facility] 4 11:25:31 Date Recorded Body height Body mass index (BMI) Body weight Body temperature Heart rate Respiratory rate Oxygen saturation Oxygen saturation in Arterial blood by Pulse oximetry Provider Name and Address Organization Details Last Updated DateTime 4 165.1 cm 51.1 kg/m2 213466. 86 g 98.6 [degF] 84 /min 14 /min 98 % 98 % Ibeth Herrera MA [facility] [employer] [facility] 4 11:07:02 Date Recorded Body height Body mass index (BMI) Body weight Body temperature Heart rate Respiratory rate Oxygen saturation Oxygen saturation in Arterial blood by Pulse oximetry Systolic And Diastolic Provider Name and Address Organization Details Last Updated DateTime 3 165.1 cm 49.9 kg/m2 601892. 71 g 97.7 [degF] 119 /min 16 /min 99 % 99 % 132/86 mm[Hg] Lucy Simmons RN [facility] [employer] [facility] 3 09:02:04 Social History Question Answer Notes LastModified by Organizat ion Details LastModified Time Tobacco Smoking Status Former Smoker Not Available [facility] 10/05/2022 20:19:18 In The 14 Days Before Symptom Onset, Have You Had Close Contact With A Laboratory-confirm ed COVID-19 While That Case Was Ill? No [id number] Information not available 10/05/2022 In The 14 Days Before Symptom Onset, Have You Had Close Contact With A Person Who Is Under Investigation For COVID-19 While That Person Was Ill? No [id number] Information not available 10/05/2022 How Much Tobacco Do You Smoke? 0.25 PPD [id number] Information not available 10/05/2022 How Many Years Have You Smoked Tobacco? 3 [id number] Information not available 10/05/2022 Sex: Unknown Functional Status Question Answer Note LastModified by Organizat ion Details LastModified Time Do you or have you ever used e-cigarettes or vape? Current user of electronic cigarettes [id number] Information not available 10/05/2022 Mental Status None recorded. Family History Relationship Description Onset Age of this Age Resolved Age Notes LastModified by Organization Details LastModified Time Maternal Grandfather Diabetes mellitus [id number] Not available 10/05/2022 20:19:30 Father Hypertensive disorder [id number] Not available 10/05/2022 20:19:30 Medical History Condition Response SEIZURES/EPILEPSY Y GASTROINTESTINAL BLEEDING Y USE OF BLOOD THINNERS Y ANEMIA/BLOOD DISORDER Y BLOOD CLOTS Y GERD/NAUSEA Y BOWEL PROBLEMS Y DEPRESSION (INCLUDING POST ) Y HEARTBURN / REFLUX Y Gynecological HistoryNo gynecological history recorded. Obstetrics History GPAL:G 0 P 0 0 0 0 Immunizations Vaccine Type Date Status Note Provider Nam e and Address Organization Details Recorded Time TST, unspecified formulation 0 completed HERBERTH Card, [employer] [facility] [employer] 05/18/2023 14:02:06 Influenza, split virus, quadrivalent, preservative 0 completed HERBERTH Card, [employer] [facility] [employer] 05/18/2023 14:02:06 Influenza, split virus, quadrivalent, PF 0 completed Not Available [employer] 10/05/2022 20:21:27 Tdap 2 completed Joanna Dent null, [employer] [facility] [employer] 10/13/2023 10:32:51 MMR 4 completed CR Franklin [address] [place] [address], [id number], [facility] [employer] [facility] [employer] 10/18/2023 11:46:48 Past Encounters Encounter ID Performer Location Encounter Start Date Encounter Closed Date Diagnosis/Indication Diagnosis SNOMED-CT Code Diagnosis ICD10 Code Diagnosis Note [id number] Bushra Lyman MD [facility] [place] [address], [place] [address] 11/11/2020 00:00:00 11/11/2020 13:35:07 [id number] [facility] [place] [address], [place] [address] 11/24/2020 00:00:00 11/25/2020 06:32:45 [id number] [facility] [place] [address], [place] [address] 02/01/2021 00:00:00 02/01/2021 21:23:03 [id number] [address] [facility] [place] [address], [place] [address] 08/11/2021 00:00:00 08/11/2021 19:21:59 [id number] [facility] [place] [address] [place] [address] 11/11/2021 00:00:00 11/12/2021 06:02:09 [id number] [facility] [place] [address], [place] [address] 12/30/2021 00:00:00 12/30/2021 20:29:16 [id number] [facility] [place] [address] [place] [address] 03/23/2022 00:00:00 03/24/2022 05:59:37 [id number] [facility] [place] [address] [place] [address] 05/31/2022 00:00:00 05/31/2022 11:23:35 [id number] Bushra Lyman MD [facility] [place] [address] [place] [address] 07/07/2022 00:00:00 07/07/2022 20:50:49 [id number] Bushra Lyman MD [facility] [place] [address] [place] [address] 07/21/2022 00:00:00 07/21/2022 20:21:17 [id number] Bushra Lyman MD [facility] [place] [address] [place] [address] [place] [address] 08/23/2022 00:00:00 08/24/2022 08:49:22 [id number] Bushra Lyman MD [facility] [place] [address] [place] [address] [place] [address] 09/20/2022 00:00:00 09/20/2022 20:37:29 [id number] Bushra Lyman MD [facility] [place] [address] [place] [address] [place] [address] 10/20/2022 14:46:00 10/20/2022 15:39:01 Infection of skin and/or subcutaneous tissue 72604565 L08.9 [facility] paperwork filled out. Malaise and fatigue 2717 99949 R53.83 Intractabl e nausea and vomiting 773218217 R11.2 Continue zofran and morphine for pain Chronic ab dominal pain 015410797 R10.9 [id number] Bushra Lyman MD [facility] [place] [address] [place] [address] [place] [address] 12/22/2022 09:39:09 12/22/2022 10:03:22 History of deep vein thrombosis 610684224 Z86.718 Continue the eliquis. Nutritional disorder 249 2008 E46 Water down protein shakes and use antiemetic s prior to taking protein shakes. Seizure disorder 8163444 02 G40.909 Chronic vomiting 3288599 8 R11.10 Continue antiemetic s. [id number] Bushra Lyman MD [facility] [place] [facility] [facility] [place] [address] 02/08/2023 09:37:01 02/08/2023 10:22:38 Nausea and vomiting 45492846 R11.2 Chronic History of deep vein thrombosis 047491783 Z86.718 Continue the eliquis. Chronic ab dominal pain 602497823 R10.9 Note written to RTW with restrictio n of 8 hours per shift May RTW on 02/13/23 [id number] Bushra Lyman MD [facility] [place] [facility] [facility] [place] [address] 02/27/2023 15:24:02 02/27/2023 15:40:42 Pain of right knee joint 1503969843 14565 M25.561 Obesity 214176458 E66.9 F/u in 1 month [id number] Bushra Lyman MD [facility] [place] [facility] [facility] [place] [address] 05/18/2023 13:54:47 05/18/2023 14:20:59 Diarrhea 83739176 R19.7 Use immodium Chronic ab dominal pain 304025231 R10.9 Continue hydrocodon e Hypothyroidism 98920635 E03.9 Difficult to get BW from pt. Morbid obesity 801022771 E66.01 [id number] Bushra Lyman MD [facility] [place] [facility] [place] [address] 2023 08:47:38 2023 09:18:13 Transition of care 3829245533 105 Z75.8 Depressive disorder 3548 9007 F32.A Cellulitis of skin 83029 1002 L03.90 Gastrostom y tube in situ 958547487 Z93.1 Anxiety 40814488 F41.9 Asthma 906328337 J45.90 9 Gastroesop hageal reflux disease 958052606 K21.9 Hypothyroidism 27771834 E03.9 [id number] Bushra Lyman MD [facility] [place] [address] [place] [address] [place] [address] 10/11/2023 10:06:04 10/11/2023 10:37:56 Obesity 072957320 E66.9 Vitamin D below reference range 429326890 E55.9 Seizure disorder 7144407 02 G40.909 Asthma 215371576 J45.90 9 Anxiety 84195432 F41.9 Bilateral arthritis of knees 5073767587 112377 M13.861 M13.862 Chronic low back pain 27 8331873 M54.50 Depressive disorder 3548 9007 F32.A Gastroesop hageal reflux disease 878349752 K21.9 Hypothyroidism 85769121 E03.9 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 General Surgery [address] [facility] [address] [place] [address] 12/14/2023 11:05:22 12/14/2023 12:05:44 Nutritional disorder 4691103 E63.9 [id number] August steve MD [facility] [facility] General Surgery [address] [address] 01/04/2024 10:58:34 01/04/2024 12:27:02 Health Concerns Section Related Observation LastModified by Organization Detai ls LastModified Time None Recorded Concern Status LastModified by Organization Details LastModified Time None Recorded Advance Directives Directive None Recorded Payers Insurance Date Sequence Insurance Name Policy Number Policy Rene Covered Member ID Rene Member ID Guarantor Name 11/07/2024 2 [place] [employer] Shaun Karthikeyan [id number] Shaun Karthikeyan 12/14/2023 1 [employer] [place] [employer] (EPO) Shaun Karthikeyan [id number] Shaunbecka Mccarty 12/14/2023 2 [place] Shaunbecka Mccarty [id number] Shaun Karthikeyan 11/07/2024 1 [facility] (MEDICARE REPLACEMENT/A DVANTAGE - HMO) [id number] Shaun Mccarty [id number] Shaunbecka Mccarty 12/14/2023 1 [facility] (MEDICAID REPLACEMENT - HMO) [id number] Shaunbecka Mccarty [id number] Shaunbecka Mccarty 12/14/2023 2 [facility] - DOS ON OR AFTER 21 (MEDICAID REPLACEMENT - HMO) Shaun Mccarty [id number] Shaunbecka Mccarty 01/03/2024 2 [place] WHEN MEDICARE OR MEDICARE REPLACEMENT PRIMARY) Shaunbecka Mccarty [id number] Shaunbecka Mccarty 09/30/2024 1 [facility] [id number] Shaunbecka Mccarty [id number] Shaun Mccarty 12/14/2023 2 [facility] (MEDICAID HMO) [id number] Shaun Mccarty [id number] Shaunbecka Mccarty Notes Date Note Type Note Provider Name and Address Organization Details Recorded Time 2023 text/html Has had problems with the gastric procedure since 2018 when it was placed . Been infectd for several weeks now , no fever [facility] [address], [place], [address], [employer] 2023 09:31:03 10/11/2023 text/html They told her at the hospital , she needs a port to get blood drawn , her veins do not llow easy acces to draw blood. [facility] [address], [place], [address], [employer] 10/18/2023 11:48:08 12/14/2023 text/html Patient here for Port-A-Cath placement referred by primary care physician. She states that she has had weight loss surgery and has issues and cannot keep food down. Was told by managing team at [facility] that she will require TPN intermittently and would need a port for that. She was also hospitalized frequently and her venous access is poor as she has had many catheters in the past. Mostly through the arms but also has had a port on her left upper chest August Wilkinson MD [address], [place], [address], [employer] 12/14/2023 13:40:23 01/04/2024 text/html patient states t hey could not of pain blood return from the Port-A-Cath that I placed proximally to 3 weeks ago. She normally gets her care [facility]. Denies any pain redness or drainage from the Port-A-Cath site August Wilkinson MD [address], [place], [address], [employer] 01/04/2024 12:19:49 OBGyn Episode No OBEpisode recorded.
--- OUTSIDE RECORDS SUMMARY | 2025-02-24 18:21 | XMS_ITS | Clinical Summary ---
Author Organization [facility] [employer] Address [address] [place] [address] Care Team Providers Care Directional Bore Operator Name Role Phone Bushra Lyman MD Primary Care Provider [phone] Source Comments [facility],non-owned Affiliates and Associated Physician Practices is amultiple site organization consisting of ambulatory clinics and hospital sitesin [place], [place], [place] and [place]. This disclosure is being madepursuant to the Care Everywhere program and may not contain all information available regarding this patient. Last updated 18.[facility] [employer] Allergies Active Allergy Reactions Criticality Noted Date Comments Adhesive Sensitivity Unknown 09/24/2019 Fexofenadine Urticaria Medium 10/04/2017 Bupropion Other Low 06/03/2019 made me sicker. made me sicker. Clindamycin Urticaria Medium 05/17/2019 Codeine Skin Reactions Medium 10/31/2016 Lacosamide Other 01/24/2021 bradycardia [place] Anaphylaxis High 01/21/2020 Throat swelling per patient Oxycodone-Acetaminophen Anaphylaxis,Unkn own, Rash High 09/30/2017 Tolerated morphine IV, [place], and Roxicodone as of 10/2021, 11/2021, 12/2021 Trimethobenzamide Swelling,Other Medium 07/12/2021 Redness to injection site Azithromycin Urticaria Medium 10/04/2017 Medications * Be aware that medications may not be up to date on this document. Alwaysverify current medications with the patient. albuterol HFA (PROAIR HFA) 108 (90 Base) MCG/ACT inhaler Inhale 2 (two) puffs by mouth every 4 hours as needed for Shortness of Breath or Wheezing 6.7 g 05/03/20 21 Active ondansetron, disintegrating, (Zofran ODT) 4 MG tablet Take 1 (one) tablet by mouth every 6 hours as needed for Nausea/Vomiting Allow tablet to dissolve on the tongue 30 tablet 1 05/12/20 22 Active calcium carbonate (Tums) 500 MG chew tablet Take 2 (two) tablets by mouth every 4 hours as needed 06/23/20 22 Active diphenoxylate-a tropine (Lomotil) 2.5-0.025 MG tablet Take 1 (one) tablet by mouth 4 times daily as needed for Diarrhea 07/21/20 22 Active apixaban (Eliquis) 5 MG tablet Take 1 (one) tablet by mouth 2 times daily 60 tablet 1 09/19/19 23 Active folic acid 500 mcg/ml SOLN Take 2 mL by mouth once daily 60 mL 12/01/19 23 Active magnesium hydroxide (Milk of Magnesia) 400 MG/5ML suspension Take 15 mL by mouth as needed 118 mL 12/01/19 23 Active metoclopramide (Reglan) 10 MG/10ML solution Take 5 mL by mouth 4 times daily - before meals & nightly 473 mL 12/01/19 23 Active multivitamin (POLY--MADAN) oral solution Take 1 mL by mouth once daily Commonly known as POLY--MADAN 50 mL 12/01/19 23 Active Symbicort 80-4.5 MCG/ACT inhaler Inhale 2 (two) puffs by mouth 2 times daily 12/14/19 25 Active ARIPiprazole (Abilify) 2 MG tablet Take 1 (one) tablet by mouth once daily 30 tablet 02/04/20 25 Active hydroCHLOROthia zide (Hydrodiuril) 25 MG tablet Take 1 (one) tablet by mouth once daily 12/12/19 25 Active divalproex sprinkle (Depakote Sprinkle) 125 MG capsule Take 2 (two) capsules by mouth 3 times daily 180 capsule 02/03/20 25 Active levETIRAcetam (Keppra) 500 MG tablet Take 2 (two) tablets by mouth 2 times daily for 6 days, THEN 1 (one) tablet 2 times daily for 5 days. 34 tablet 02/03/20 25 Active sertraline (Zoloft) 100 MG tablet Take 1 (one) tablet by mouth 2 times daily 60 tablet 02/03/20 25 Active levothyroxine (Synthroid) 50 MCG tablet Take 1 (one) tablet by mouth daily before breakfast 30 tablet 02/03/20 25 Active ferrous sulfate 325 (65 FE) MG tablet Take 1 (one) tablet by mouth once daily 100 tablet 4 02/03/20 25 Active losartan (Cozaar) 50 MG tablet Take 1 (one) tablet by mouth once daily 30 tablet 02/04/20 25 Active pyridoxine (Vitamin B-6) 25 MG tablet Take 2 (two) tablets by mouth once daily 60 tablet 02/03/20 25 Active lamoTRIgine (LAMICTAL) 100 MG tablet Take 1 (one) tablet by mouth 2 times daily 025 Discontin ued(Clini seferino Decision) busPIRone (Buspar) 10 MG tablet Take 1 (one) tablet by mouth at bedtime 025 Discontin ued(Clini seferino Decision) acetaminophen (Tylenol) 160 MG/5ML solution Take 20.3125 mL by mouth every 4 hours as needed 06/23/20 22 025 Discontin ued(List Clean-Up) cyclobenzaprine (Flexeril) 10 MG tablet Take 1 (one) tablet by mouth 3 times daily as needed for Muscle Spasms 15 tablet 09/06/19 23 025 Discontin ued(Clini seferino Decision) levETIRAcetam (Keppra) 100 MG/ML oral solution Take 15 mL by mouth 2 times daily 473 mL 09/06/19 23 025 Discontin ued(Clini seferino Decision) cariprazine (Vraylar) 3 MG capsule Take 1 (one) capsule by mouth once daily 025 Discontin ued(Clini seferino Decision) ondansetron, disintegrating, (Zofran ODT) 4 MG tablet Take 1 (one) tablet by mouth every 6 hours as needed for Nausea/Vomiting Allow tablet to dissolve on the tongue 120 tablet 09/28/19 23 025 Discontin ued(List Clean-Up) oxyCODONE (Roxicodone) 5 MG/5ML oral solutionIndicat ions:Bariatric surgery status Take 5 mL by mouth every 6 hours as needed for Pain 120 mL 09/29/19 23 025 Discontin ued(List Clean-Up) mirtazapine, disintegrating, (Remeron Soltab) 15 MG tablet Take 1 (one) tablet by mouth at bedtime 30 tablet 12/01/19 23 025 Discontin ued(Clini seferino Decision) scopolamine (Transderm-Scop ) 1 MG patch Apply 1 (one) patch to skin every 72 hours as needed for Nausea/Vomiting or Dizziness 10 patch 12/01/19 23 025 Discontin ued(List Clean-Up) ARIPiprazole (Abilify) 1 MG/ML oral solution Take 5 mL by mouth once daily 150 mL 12/01/19 23 025 Discontin ued(Dose Adjustmen t) prochlorperazin e (Compazine) 25 MG suppository Insert 1 (one) suppository into the rectum every 12 hours as needed for Nausea/Vomiting 6 suppository 12/01/19 23 025 Discontin ued(List Clean-Up) busPIRone (Buspar) 30 MG tablet Take 1 (one) tablet by mouth 2 times daily 11/02/19 25 025 Discontin ued(Clini seferino Decision) losartan (Cozaar) 100 MG tablet Take 1 (one) tablet by mouth once daily 12/09/19 25 025 Discontin ued(Dose Adjustmen t) Active Problems Problem Noted Date Diagnosed Date Breakthrough seizure 01/31/2025 Other complications of enterostomy 11/22/2022 Malfunctioning jejunostomy tube 09/23/2022 Acute deep vein thrombosis ( DVT) of axillary vein of both upper extremities 09/19/2022 Gastrointestinal hemorrhage, unspecified gastrointestinal hemorrhage type 08/15/2022 History of Sandi-en-Y gastric bypass 06/22/2022 Hematemesis with nausea 04/23/2022 Venosclerosis 02/23/2022 Dislodged jejunostomy tube 12/25/2021 Jejunostomy present 12/06/2021 Hx laparoscopic cholecystectomy 01/18/2020 Major depressive disorder, s edenilson episode, severe without psychotic features 03/01/2017 Overview (11/06/2017): ICD-10 update Seizure disorder Resolved Problems Problem Noted Date Diagnosed Date Resolved Date Intractable vomiting 09/15/2022 025 Nausea and vomiting, unspeci fied vomiting type 08/24/2022 02/01/2025 Upper GI bleed 06/22/2022 02/01/2025 Infectious enteritis, unspec ified infectious agent 03/29/2022 02/01/2025 Nausea and vomiting, intract ability of vomiting not specified, unspecified vomiting type 03/04/2022 02/01/2025 Overview (05/07/2022): IMO 2021 Update Wound infection 02/18/2022 02/01/2025 Skin infection 12/25/2021 02/01/2025 Abdominal pain, generalized 12/06/2021 02/01/2025 Malnutrition 11/11/2021 02/01/2025 Jejunostomy tube leak 09/29/20212024 Volume depletion 09/29/2021 02/01/2025 Nausea and vomiting 09/29/2021 02/02/20 25 Intractable nausea and vomiting 07/12/2021 02/01/2025 Intractable abdominal pain 06/13/2021 0 02/01/2025 Gastrointestinal hemorrhage 04/29/2021 02/01/2025 Seizure 09/06/2018 02/01/2025 Epilepsy with status epilept icus, not intractable 10/31/2016 02/01/2025 Seizure disorder 02/01/2025 Encounters Date Type Department Care Team Description 02/02/2025 Telephone [facility] [address] [place] [phone] Diana Bynum MD Follow-up 02/01/2025 1:16 AM CDT - 02/02/2025 2:39 PM T Hospital Encounter [facility] [address]W TELE [address] [place] [phone] Quoc Guerra MD Volkerding, Andrea M, MD Henke, Shelton Coronado MD Internal Medicine Discharge Disposition: Home or Self Care 02/01/2025 Travel 01/31/2025 Telephone [facility] [address] [place] [phone] Sandhya Leroy MD Md Requested Call from Last 3 Months Immunizations Immunization Administration Dates Next Due COVCAROLYN ALICE PRIMARY 18+YR 10/15/2020 Covid Pfizer primary Monovalent 12+ yr 0.3ml Social History Tobacco Use Types Packs/Day Years Used Date Smoking Tobacco: Former Cigarettes 0.3 7 1 10/03/2012 - 09/2019 Smokeless Tobacco: Never Tobacco Cessation:Counseling Given: Not Answered Comments:vape Alcohol Use Standard Drinks/Week Comments Not Currently 0 (1 standard drink = 0.6 oz pur e alcohol) couple of times per month OASIS D0700: Social Isolation Answer Da te Recorded Frequency of experiencing loneliness or isolatio n Never 09/09/2022 OASIS A1250: Transportation Answer Date Recorded Lack of Transportation (Medical) No 09/09/2022 Lack of Transportation (Non-Medical) No 09/09/2022 Patient Unable or Declines to Respond No 09/09/2022 OASIS B1300: Health Literacy Answer Rocael e Recorded Frequency of needing help to read materials from doctor or pharmacy Never 09/09/2022 AUDIT-C Answer Date Recorded Q1: How often do you have a drink containing alc ohol? Never 12/24/2021 Average Number of Drinks Not on file 022 Q3: How often do you have si x or more drinks on one occasion? Never 12/24/2021 Overall Financial Resource Strain (CARDIA) Answe r Date Recorded How hard is it for you to pa y for the very basics like food, housing, medical care, and heating? Not very hard 11/22/2022 PHQ-2 Answer Date Recorded PHQ2 TOTAL SCORE 0 09/19/[address] [facility] [place] [facility] - Occupational Stress Questionnaire Answer Date Recorded Do you feel stress - tense, restless, nervous, or anxious, or unable to sleep at night because your mind is troubled all the time - these days? Not at all 11/22/2022 Hunger Vital Sign Answer Date Recorded Within the past 12 months, y ou worried that your food would run out before you got the money to buy more. Never true 11/24/19 23 Within the past 12 months, t he food you bought just didn't last and you didn't have money to get more. Never true 11/23/2022 PRAPARE - Transportation Answer Date Re corded In the past 12 months, has l ack of transportation kept you from medical appointments or from getting medications? No 11/05 In the past 12 months, has l ack of transportation kept you from meetings, work, or from getting things needed for daily living? No 11/22/2022 Housing Stability Vital Sign Answer Rocael e Recorded In the last 12 months, was t here a time when you were not able to pay the mortgage or rent on time? No 11/22/2022 In the last 12 months, how many places have you lived? 1 11/22/2022 In the last 12 months, was t here a time when you did not have a steady place to sleep or slept in a intermediate (including now)? No 11/22/2022 Comments No Sex and Gender Information Value Date Recorded Sex Assigned at Female 09/29/2021 6:49 PM SWEAT BAND SEPARATOR Legal Sex Female 5:41 PM SWEAT BAND SEPARATOR Gender Identity Female 09/29/2021 6:49 PM SWEAT BAND SEPARATOR Sexual Orientation Straight 09/29/2021 6: 49 PM SWEAT BAND SEPARATOR Last Filed Vital Signs Vital Sign Reading Time Taken Comments Blood Pressure 127/73 02/02/2025 12:13 PM CDT Pulse 80 02/02/2025 12:01 PM CDT Temperature 36.8 C (98.2 F) 02/02/2025 9:12 AM CDT Respiratory Rate 18 02/02/2025 10:1 4 AM CDT Oxygen Saturation 99% 02/02/2025 12: 01 PM CDT Inhaled Oxygen Concentration 21% 01/16/2020 2 :00 PM CDT Weight 136.2 kg (300 lb 3.2 oz) 02/01/2025 1:22 AM CDT Height 165.1 cm (5' 5) 02/01/2025 1:22 AM CDT Body Mass Index 49.96 02/01/2025 1:22 AM CDT Plan of Treatment Health Maintenance Due Date Last Done Comments HIV SCREENING 2009 DTAP/TDAP/TD VACCINES (1 - Tdap) 2013 HEPATITIS B VACCINE (1 of 3 - 19+ 3-dose series) 2013 PNEUMOCOCCAL VACCINE (1 of 2 - PCV) 2013 PAP SMEAR 2015 HPV VACCINE (1 - 3-dose SCDM series) 2021 COVID-19 VACCINE ( season) 2024 09/23/2021, 10/15/2020 DEPRESSION SCREENING 08/07/2024 11/22/2022, 09/23/2022, 09/20/2022, Additional history exists MEDICARE AWV CALENDAR YEAR 2024 INFLUENZA VACCINE (#1) 2025 , 10/05/2023, 05/13/2021, Additional history exists ZOSTER VACCINE (1 of 2) 2044 HEPATITIS C SCREENING Completed 11/13/2024 HIB VACCINE Aged Out No longer eligi ble based on patient's age to complete this topic MENINGOCOCCAL (Group B) VACCINE SHARED DECISION-MAKING Aged Out No longer eligible based on patient's age to complete this topic MENINGOCOCCAL GROUPS A/C/Y/W VACCINE Aged Out No longer eligible based on patient's age to complete this topic Medical Devices Implanted Type Area Credit Charge Authorizer Device Identifier Shelf Expiration Date Model / Serial / Lot Stent Pncr 20mm 10mm Axs Strl Lf Disp Implanted:Qty : 1 on 06/17/2021 by Humza Morris MD at [facility] N/A: Esophagus [employer] 04/05/2022 [id number] / / [id number] Stent Pncr 20mm 10mm Axs Strl Lf Disp Implanted:Qty : 1 on 07/23/2021 by Humza Morris MD at [facility] N/A: Esophagus [employer] 04/05/2022 [id number] / / [id number] Port Implinfn [employer] Isp Mri Argd Implanted:Qty : 1 on 02/23/2022 by Ambrose Molina MD at [facility] Left: Chest [employer] 01/04/2023 [id number] / / [id number] Explanted Type Area Credit Charge Authorizer Device Identifier Shelf Expiration Date Model / Serial / Lot Stent Pncr 20mm 10mm Axs Strl Lf Disp Explanted:Qty : 1 on 07/23/2021 at [facility] N/A: Esophagus [employer] [facility] 04/05/2022 [id number] / / [id number] Procedures Procedure Name Priority Date/Time Associated Diagnosis Comments CARDIAC RHYTHM STRIP ORDER 02/03/2025 8:43 PM CDT OT EVAL AND TREAT Routine 02/02/2025 8:4 6 AM CDT PT EVAL AND TREAT Routine 02/02/2025 8:4 6 AM CDT MAGNESIUM BLOOD Routine 02/02/2025 4:18 AM CDT RENAL FUNCTION PANEL AM Draw 02/02/2025 4:18 AM CDT GLUCOSE - POINT OF CARE Routine 02/01/2025 7:15 AM CDT FERRITIN Routine 02/01/2025 3:40 AM CDT IRON + TRANSFERRIN PANEL Routine 02/01/2025 3:40 AM CDT EKG 12-LEAD Routine 02/01/2025 3:29 AM CDT Hx laparoscopic cholecystectomy Seizure disorder (HCC) VALPROIC ACID LEVEL Routine 02/01/2025 2 :08 AM CDT LEVETIRACETAM LEVEL AM Draw 02/01/2025 2 :08 AM CDT TSH AM Draw 02/01/2025 2:08 AM CDT CK BLOOD STAT 02/01/2025 2:08 AM CDT LACTIC ACID BLOOD STAT 02/01/2025 2:0 8 AM CDT MAGNESIUM BLOOD STAT 02/01/2025 2:08 AM CDT BASIC METABOLIC PANEL (CALCIUM TOTAL) STAT 02/01/2025 2:08 AM CDT CBC W/O DIFFERENTIAL STAT 02/01/2025 2:08 AM CDT GLUCOSE - POINT OF CARE Routine 02/01/2025 1:16 AM CDT from Last 3 Months Results * CARDIAC RHYTHM STRIP ORDER (02/03/2025 8:43 PM CDT) Narrative 02/03/2025 8:43 PM CDT Ordered by an unspecified provider. us Scanned Document CARDIAC SERVICES ORDERABLES Fin al Result * RENAL FUNCTION PANEL (02/02/2025 4:18 AM CDT) Glucose 86 70 - 99 mg/dL 02/02/2025 4:57 AM CDT [facility] Sodium 139 136 - 145 mmol/L 02/02/2025 4:57 AM CDT [facility] Potassium 4.2 3.5 - 5.1 mmol/L 02/02/2025 4:[address] [facility] Chloride 106 98 - 107 mmol/L 02/02/2025 4:[address] [facility] CO2 25 22 - 29 mmol/L 02/02/2025 4:57 AM CDT [facility] Calcium 8.8 8.4 - 10.4 mg/dL 02/02/2025 4:[address] [facility] Anion Gap 8 6 - 16 mmol/L 02/02/2025 4:[address] [facility] BUN 8 5.3 - 18.7 mg/dL 02/02/2025 4:[address] [facility] Creatinine 0.71 0.57 - 1.11 mg/dL 02/02/2025 4:[address] [facility] Albumin 3.8 3.1 - 4.5 gm/dL 02/02/2025 4:[address] [facility] Phosphorus 4.5 2.5 - 4.5 mg/dL 02/02/2025 4:[address] [facility] eGFR by CKD-EPI >90 >=90 mL/min/1.7 3 m2 02/02/2025 4:[address] [facility] Blood BLOOD SPECIMEN / Unknown Lab Venipuncture / Unknown 02/02/2025 4:18 AM CDT 02/02/2025 4:25 AM CDT Shelton Jones MD LAB - CHEMISTRY ORDERABLES F inal Result Performing Organization Address [facility] Co de Phone Number [facility] [address] [place] [phone] * MAGNESIUM BLOOD (02/02/2025 4:18 AM CDT) Only the most recent of2 resultswithin the time period is included. Magnesium 2.1 1.6 - 2.6 mg/dL 02/02/2025 4:[address] [facility] Blood BLOOD SPECIMEN / Unknown Lab Venipuncture / Unknown 02/02/2025 4:18 AM CDT 02/02/2025 4:25 AM CDT Shelton Jones MD LAB - CHEMISTRY ORDERABLES F inal Result Performing Organization Address [facility] de Phone Number [facility] [address] [place] [phone] * (ABNORMAL) GLUCOSE - POINT OF CARE (02/01/2025 7:15 AM CDT) Only the most recent of2 resultswithin the time period is included. Glucose WB/POC 102(H) 70 - 99 mg/dL 02/01/2025 7:[address] [facility] Specimen Type Arterial/C apillary 02/01/2025 7:[address] [facility] Blood BLOOD SPECIMEN / Unknown 02/01/2025 7:15 AM CDT 02/01/2025 7:22 AM CDT Shelton Jones MD LAB - POINT OF CARE ORDERABL ES Final Result Performing Organization Address [facility] Co de Phone Number [facility] [address] [place] [phone] * (ABNORMAL) IRON + TRANSFERRIN PANEL (02/01/2025 3:40 AM CDT) Iron 30(L) 40 - 150 ug/dL 02/01/2025 4:[address] [facility] Transferrin 312 174 - 382 mg/dL 02/01/2025 4:[address] [facility] TIBC Calculated 390 240 - 450 ug/dL 02/01/2025 4:[address] [facility] Iron Saturation % 8(L) 20 - 50 % 02/01/2025 4:[address] [facility] Blood BLOOD SPECIMEN / Unknown Lab Venipuncture / Unknown 02/01/2025 3:40 AM CDT 02/01/2025 3:52 AM CDT us Christopher Hays MD LAB - CHEMISTRY ORDERABLE S Final Result Performing Organization Address [facility] de Phone Number [facility] [address] [place] [address] [phone] * FERRITIN (02/01/2025 3:40 AM CDT) Pathologist [facility] Ferritin 28 5 - 204 ng/mL 02/01/2025 4:[address] [facility] Blood BLOOD SPECIMEN / Unknown Lab Venipuncture / Unknown 02/01/2025 3:40 AM CDT 02/01/2025 3:52 AM CDT us Christopher Hays MD LAB - CHEMISTRY ORDERABLE S Final Result Performing Organization Address [facility] de Phone Number [facility] [address] [place] [address] [phone] * EKG 12-LEAD (02/01/2025 3:29 AM CDT) Ventricular Rate 64 BPM [facility] Atrial Rate 64 BPM [facility] P-R Interval 152 ms [facility] QRS Duration ms 80 ms [facility] Q-T Interval ms 454 ms [facility] QTC Calculation (Bezet) 468 ms [facility] Calculated P [place] 51 degrees [facility] Calculated R [place] -13 degrees [facility] Calculated T [place] 23 degrees [facility] Interpretation EKG NORMAL SINUS RHYTHM NORMAL ECG Confirmed by MD Guerline, Jorge ([id number]) on 02/03/2025 7:46:[address] [facility] 02/01/2025 3:29 AM CDT 02/03/2025 7:46 AM CDT us Christopher Hays MD ECG ORDERABLES Edited Re sult - Final [facility] * (ABNORMAL) LEVETIRACETAM LEVEL (02/01/2025 2:08 AM CDT) Pathologist [facility] Levetiracetam 47.92(H) 10 - 40 ug/mL 02/01/2025 2:[address] [facility] Blood BLOOD SPECIMEN / Unknown Lab Venipuncture / Unknown 02/01/2025 2:08 AM CDT 02/01/2025 2:23 AM CDT us Quoc Guerra MD LAB - THERAPEUTIC DRUG MONIT ORING ORDERABLES Final Result [facility] [address] [place] [address] * (ABNORMAL) CBC W/O DIFFERENTIAL (02/01/2025 2:08 AM CDT) WBC 6.9 4.0 - 10.7 x10E9/L 02/01/2025 2:[address] [facility] RBC Count 3.71(L) 3.90 - 5.20 x10E12/L 02/01/2025 2:[address] [facility] Hemoglobin 9.1(L) 11.9 - 15.8 g/dL 02/01/2025 2:[address] [facility] Hematocrit 30.1(L) 34.8 - 46.1 % 02/01/2025 2:[address] [facility] MCV 81.1 80.0 - 98.0 fL 02/01/2025 2:[address] [facility] MCH 24.5(L) 26.7 - 33.6 pg 02/01/2025 2:[address] [facility] MCHC 30.2(L) 31.7 - 36.3 g/dL 02/01/2025 2:[address] [facility] RDW-CV 18.6(H) 11.3 - 14.8 % 02/01/2025 2:[address] [facility] Platelet Count 266 150 - 420 x10E9/L 02/01/2025 2:[address] [facility] MPV 9.8 7.8 - 11.4 fL 02/01/2025 2:[address] [facility] Blood BLOOD SPECIMEN / Unknown Lab Venipuncture / Unknown 02/01/2025 2:08 AM CDT 02/01/2025 2:23 AM CDT us Quoc Guerra MD LAB - HEMATOLOGY ORDERABLES Final Result Performing Organization Address City/State/[facility] Co de Phone Number [facility] [address] [place] [address] * (ABNORMAL) BASIC METABOLIC PANEL (CALCIUM TOTAL) (02/01/2025 2:08 AM CDT) Glucose 96 70 - 99 mg/dL 02/01/2025 2:[address] [facility] Sodium 139 136 - 145 mmol/L 02/01/2025 2:[address] [facility] Potassium 4.0 3.5 - 5.1 mmol/L 02/01/2025 2:[address] [facility] Chloride 109(H) 98 - 107 mmol/L 02/01/2025 2:[address] [facility] CO2 25 22 - 29 mmol/L 02/01/2025 2:[address] [facility] Calcium 8.4 8.4 - 10.4 mg/dL 02/01/2025 2:[address] [facility] Anion Gap 5(L) 6 - 16 mmol/L 02/01/2025 2:[address] [facility] BUN 10 5.3 - 18.7 mg/dL 02/01/2025 2:[address] [facility] Creatinine 0.68 0.57 - 1.11 mg/dL 02/01/2025 2:[address] [facility] eGFR by CKD-EPI >90 >=90 mL/min/1.7 3 m2 02/01/2025 2:[address] [facility] Blood BLOOD SPECIMEN / Unknown Lab Venipuncture / Unknown 02/01/2025 2:08 AM CDT 02/01/2025 2:24 AM CDT Quoc Guerra MD LAB - CHEMISTRY ORDERABLES F inal Result Performing Organization Address City/[facility]/ZIP Co de Phone Number [facility] [address] [place] [phone] * LACTIC ACID BLOOD (02/01/2025 2:08 AM CDT) Lactic Acid 0.463 <=2 mmol/L 02/01/2025 2:[address] [facility] Blood BLOOD SPECIMEN / Unknown Lab Venipuncture / Unknown 02/01/2025 2:08 AM CDT 02/01/2025 2:23 AM CDT Quoc Guerra MD LAB - CHEMISTRY ORDERABLES F inal Result Performing Organization Address [facility] Co de Phone Number [facility] [address] [place] [phone] * CK BLOOD (02/01/2025 2:08 AM CDT) CK 47 29 - 168 U/L 02/01/2025 2:[address] [facility] Blood BLOOD SPECIMEN / Unknown Lab Venipuncture / Unknown 02/01/2025 2:08 AM CDT 02/01/2025 2:24 AM CDT Quoc Guerra MD LAB - CHEMISTRY ORDERABLES F inal Result Performing Organization Address City/[facility]/ZIP Co de Phone Number [facility] [facility] [address] [place] [id number] * TSH (02/01/2025 2:08 AM CDT) TSH 3.5565 0.35 - 4.94 uIU/mL 02/01/2025 3:[address] [facility] Blood BLOOD SPECIMEN / Unknown Lab Venipuncture / Unknown 02/01/2025 2:08 AM CDT 02/01/2025 2:24 AM CDT Quoc Guerra MD LAB - CHEMISTRY ORDERABLES F inal Result Performing Organization Address City/[facility] Co de Phone Number [facility] [address] [place] [address] [phone] * (ABNORMAL) VALPROIC ACID LEVEL (02/01/2025 2:08 AM CDT) Pathologist [facility] Valproic Acid <13(L) 50 - 100 ug/mL 02/01/2025 2:[address] [facility] Blood BLOOD SPECIMEN / Unknown Lab Venipuncture / Unknown 02/01/2025 2:08 AM CDT 02/01/2025 2:24 AM CDT Quoc Guerra MD LAB - CHEMISTRY ORDERABLES F inal Result Performing Organization Address City/[facility] de Phone Number [facility] [address] [place] [phone] from Last 3 Months Insurance [facility] MEDICAID UHC MANAGED MEDICARE ADV MEDICAID - OUT OF STATE [facility] MEDICAID [facility] MANAGED MEDICARE ADV [facility] MANAGED MEDICARE ADV Advance Directives * Full Code (Latest Code Status on File) Date Activated Date Inactivated Comments 02/01/2025 2:16 AM 02/02/2025 3:39 PM * Full Code Date Activated Date Inactivated Comments 11/22/2022 6:09 PM 11/30/2022 7:35 PM * Full Code Date Activated Date Inactivated Comments 09/28/2022 11:19 AM 09/28/2022 7:08 PM * Full Code Date Activated Date Inactivated Comments 09/15/2022 5:43 AM 09/16/2022 2:21 PM * Full Code Date Activated Date Inactivated Comments 09/09/2022 4:40 PM 09/14/2022 9:54 PM To update the patient's code status, place a code status order. Do not modify or discontinue any currently active code status orders. Care Teams Directional Bore Operator Relationship Specialty Start Date End Date Bushra Lyman MD [address] [address] [place] [phone] PCP - General Family Medicine 12/22/21
--- OUTSIDE RECORDS SUMMARY | 2025-02-24 18:21 | XMS_ITS | Encounter Summary ---
Author Organization [facility] Address [address] [place] [address] Care Team Providers Care Maintenance Scheduler Name Role Phone Bushra Lyman MD Unavailable [phone] Alexy Molina MD Unavailable Henrik Qureshi MD Unavailable [phone] Dayne Aiken DO Unavailable [phone] Destiny Alfaro NP Primary Care Provider [phone] Carmelo Huang MD Unavailable [phone] Encounter Details Date Type Department Care Team (Latest Contact Info) Description 11/14/2024 Documentation Neurology Armando Boyd Social History Tobacco Use Types Packs/Day Years Used Date Smoking Tobacco: Former Cigarettes 0.3 0 0 02/24/2024 - 03/04/2024 Vaping Passive Smoke Exposure: Current Smokeless Tobacco: Former Quit: 07/12/2018 Comments:pt states she quit e-cigs three weeks ago Alcohol Use Standard Drinks/Week Comments Not Currently 0 (1 standard drink = 0.6 oz pure alcohol) 1 a month, intake depends on mood [facility] Utilities Answer Date Recorded In the past 12 months has th e electric, gas, oil, or water company threatened to shut off services in your home? No 11/14/2024 Social Connection and Isolat ion Panel [NHANES] Answer Date Recorded In a typical week, how many times do you talk on the phone with family, friends, or neighbors? More than three times a week 11/14/2024 How often do you get togethe r with friends or relatives? More than three times a week 11/14/2024 How often do you attend chur ch or oriental orthodox services? Never 11/14/2024 Do you belong to any clubs o r organizations such as christian groups, unions, fraternal or athletic groups, or school groups? No 11/14/2024 How often do you attend meet ings of the clubs or organizations you belong to? Never 11/14/2024 Are you , , di vorced, , never , or living with a partner? 11/14/2024 AUDIT-C Answer Date Recorded Q1: How often [...] food, housing, medical care, and heating? Not hard at all 11/14/2024 PHQ-2 Answer Date Recorded PHQ-2 Total Score 2 11/14/2024 [facility] - Occupational [...] the money to buy more. Never true 11/15/19 25 Within the past 12 months, t he food you bought just didn't last and you didn't have money to get more. Never true 11/14/2024 PRAPARE - Transportation Answer Date Re corded In the past 12 months, has l ack of transportation kept you from medical appointments or from getting medications? No 11/05 In the past 12 months, has l ack of transportation kept you from meetings, work, or from getting things needed for daily living? No 11/14/2024 Housing Stability Vital Sign Answer Rocael e [...] place to sleep or slept in a senior care (including now)? No 10/02/2023 Housing Stability Vital Sign Answer Rocael e Recorded In the last 12 months, was t here a time when you were not able to pay the mortgage or rent on time? No 11/14/2024 In the past 12 months, how m any times have you moved where you were living? 1 11/14/2024 At any time in the past 12 m [facility], were you homeless or living in a senior care (including now)? No 11/14/2024 Personal Safety Answer Date Recorded Have you ever been in or are you currently in a harmful physical or emotional relationship or is someone making you feel afraid or unsafe? Denies 11/10/2024 Education Answer Date Recorded What is the highest level of school you have completed or the highest degree you have received? Some college, no degree 01/05/2023 Comments No Sex and Gender Information Value Date Recorded Sex Assigned at Not on file Legal Sex Female 7:38 PM [place] Gender Identity Female 09/05/2024 6:58 PM [place] Sexual Orientation Straight 09/05/2024 6: 58 PM [place] documented as of this encounter Plan of Treatment Not on file documented as of this encounter Visit Diagnoses Not on filedocumented in this encounter Additional Health Concerns Infection Onset Date Last Indicated Resolved Time COVID: Suspected 12/08/2024 12/08/2024 12/08/2024 7:45 PM CDT documented as of this encounter Care Teams Maintenance Scheduler Relationship Specialty Start Date End Date Destiny Alfaro NP [address] [address] PCP - General Internal Medicine 11/05/24 Bushra Lyman MD [address] [place] [address] [place] [address] 08/01/18 Alexy Molina MD [address] [place] [address] [address] [facility] [address] [facility] [address] [place] [address] Neurologist Neurology 09/01/18 [place] [id number] [facility] [address] [place] [address] Psychiatrist Psychiatry & Neurology 09/01/18 Dayne Aiken DO [address] [place] [id number] Medical Oncologist/Law Firm Partner Hematology and Oncology 03/05/24 Carmelo Huang MD [address] [place] [address] [address] [place] [address] Consulting Physician Neurology 02/21/25 documented as of this encounter
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
--- OUTSIDE RECORDS SUMMARY | 2025-02-24 18:21 | XMS_ITS | Encounter Summary ---
Author Organization [facility] Address [address] [place] [address] Phone Care Team Providers Care Collator Operator Name Role Phone Bushra Lyman MD Primary Care Provider [phone] Bushra Lyman MD Unavailable [phone] Angelique Vogel APRN, DIGITAL ADVISOR Unavailable [phone] Provider, None Primary Care Provider UnavailDestiny Camargo APRN, ROUTE RETURNER Primary Care Provid er Memo Plascencia MD Unavailable [phone] Encounter Details Date Type Department Care Team (Late st Contact Info) Description 01/18/2023 Nursing Facility [facility] [address] [place] [address] Zain Peters, [facility] [address] [place], [place] [id number] Social History Tobacco Use Types Packs/Day Years [...] on file documented as of this encounter Progress Notes * JamulZain arcos, PAC - 01/18/2023 12:08 PM CDT [facility] PROGRESS NOTE Preethi Napier is a 27 y.o. female at [facility] for rehabilitation. Prior to coming to rehabilitation facility patient was hospitalized at [facility] from12/30/2022 through 01/05/2023 after suffering a prolonged breakthrough seizure that resulted in weakness on right side of her body, MRV was unremarkable however. While in the facility patient had another breakthrough prolonged seizure and ended up being hospitalized from 01/12/2023 through 01/17/2023 at [facility]. Subjective: Interval History: Patient just return to facility yesterday after being hospitalized for almost a week for her prolonged breakthrough seizure. She is sitting comfortably in bed. Says she is having pain over the entire right side of her body in says the gabapentin was added on to regimen is this was felt to be neuropathic type pain. She is requesting that her morphine be restarted. She is having some weakness on the right side of her body. Her neurologist is Dr. Camara and she needs to follow-up with him. No other concerns at this time. Past Medical History Positives Diagnosis Date ??? [...] GASTRIC BYPASS,; Surgeon: Jorge Sierra DO; Location: [facility]; Service: Gastroenterology ??? UPPER GASTROINTESTINAL ENDOSCOPY N/A 04/29/2021 Procedure: EGD with PEG tube removal-HIATAL HERNIA, NO EVIDENCE OF BLEEDING, PEG TUBE NOT VISUALIZED; Surgeon: Shun Nguyen MD; Location: [facility]; Service: Gastroenterology ??? WISDOM TOOTH [...] of nonepileptic seizures Followed by neurology Continue [facility] Hospitalized after recent prolonged breakthrough seizure with right-sided weakness after her cognition improved MRV showing no obvious cause to her right-sided weakness according to Neurology Receiving [facility] physical therapy rehabilitation 01/12/2023: Patient developed [...] Will need to follow-up with her established peripheral edp equipment operator/bariatric surgeon at [facility] History of bilateral recurrent brachial and jugular DVTs Continue Eliquis which she is to be on indefinitely Psychiatric history with personality disorder, depression, anxiety Continue home regimen Abilify, Remeron and BuSpar own VTE Prophylaxis: She is anticoagulated with Eliquis at baseline I discussed advanced care planning with this patient. Disposition: Planning on going home after completion of skilled therapy This note was dictated using M*Modal fluency dictation system and there may be errors in principal gifts officer. Despite proof reading the note, there may be mistakes and I apologize for those. By: MATT Lau, 01/18/2023 12:09 PM CDT documented in this encounter Plan of Treatment Not on file documented as of this encounter Visit Diagnoses Not on filedocumented in this encounter Care Teams Collator Operator Relationship Specialty Start Date End Date Bushra Lyman MD [address] [place] [address] [place] [address] PCP - General Drafting Technician 01/13/21 12/28/23 Provider, None [place] PCP - General 12/29/23 02/27/24 Destiny Alfaro APRN, ROUTE RETURNER [address] [address] [place] [address] [place] [address] [address] [place] [id number] PCP - General Advanced Practice Nurse 02/28/24 Bushra Lyman MD [address] [place] [address] Drafting Technician 12/18/20 Angelique Vogel APRN, DIGITAL ADVISOR [address] [place] [address] Nurse Practitioner Advanced Practice Nurse 11/11/21 Memo Plascencia MD [address] [place] [id number] Consulting Physician Oncology 02/28/24 documented as of this encounter
--- OUTSIDE RECORDS SUMMARY | 2025-02-24 18:21 | XMS_ITS | Encounter Summary ---
Author Organization [facility] Address [address] [place] [address] Phone Care Team Providers Care Geospatial Image Analyst Name Role Phone Bushra Lyman MD Primary Care Provider [phone] Bushra Lyman MD Unavailable [phone] Angelique Vogel APRN, MYCOLOGY TEACHER Unavailable [phone] Provider, None Primary Care Provider UnavailDestiny Camargo APRN, TROUBLE LINEMAN Primary Care Provid er Memo Plascencia MD Unavailable [phone] Encounter Details Date Type Department Care Team (Late st Contact Info) Description 01/26/2023 Nursing Facility [facility] [address] [place] [address] Zain Peters, [facility] [address] [place], [place] [address] Social History Tobacco Use Types Packs/Day Years [...] as of this encounter Progress Notes * Zain Peters, PAC - 01/26/2023 3:33 PM CDT [facility] PROGRESS NOTE Preethi Napier is a 27 y.o. female at [facility] for rehabilitation. Prior to coming to rehabilitation facility patient was hospitalized at [facility] from12/30/2022 through 01/05/2023 after suffering a prolonged breakthrough seizure that resulted in weakness on right side of her body, MRV was unremarkable however. While in the facility patient had another breakthrough prolonged seizure and ended up being hospitalized from 01/12/2023 through 01/17/2023 at [facility]. Subjective: Interval History: I am seeing patient urgently today due to breakthrough seizures. I was called to patient's room at around 1:00 p.m. as she was having a generalized tonic-clonic seizure. This lasted for around 5 minutes and then dissipated without any medical intervention. After few minutes patient became responsive in orientated x3, says that she was feeling ???tired?? . EMS had been called when patient was seizing however when they arrived patient was alert and it was not felt necessary to send to the emergency room. /significant other arrived just after patient finished her seizure. Patient was already on the max dose of Keppra. She was on Lamictal earlier this year, but that was discontinued and the patient is not for sure why. She did not tolerate Vimpat well. My plan was to add on Dilantin to her regimen since this is her 3rd seizure in less than 1 month and have her follow-up with her neurologist. At around 2:00 p.m. I rechecked to the patient. She was not obviously postictal at that time as shewas fairly alert and orientated. Patient and has been agreed with current treatment plan At around 3:20 p.m. I was called to the patient's room again as patient developed another generalized tonic-clonic type seizure. EMS was activated shortly thereafter. Unfortunately we did not have any IM or rectal anti- epileptic medications available so we were unable to medicate her. The seizure lasted for approximately 7 minutes. Seizure activity stopped, patient was tachycardic, with normal respirations but not responding to any type of stimuli. EMS arrived. As they were transporting patientout of the facility she started seizing again. Past Medical History Positives Diagnosis Date ??? [...] GASTRIC BYPASS,; Surgeon: Jorge Sierra DO; Location: [facility]; Service: Gastroenterology ??? UPPER GASTROINTESTINAL ENDOSCOPY N/A 04/29/2021 Procedure: EGD with PEG tube removal-HIATAL HERNIA, NO EVIDENCE OF BLEEDING, PEG TUBE NOT VISUALIZED; Surgeon: Shun Nguyen MD; Location: [facility]; Service: Gastroenterology ??? WISDOM TOOTH EXTRACTION Review of Systems: A 14 point comprehensive review of systems was negative except what is documented in interval history above. Objective: Exam: Vital Signs: Recent vital signs were reviewed in the electronic medical records at nursing facility and are unremarkable. General: Well developed, well nourished, in no distress , 01/26/2023: Having a generalized tonic-clonic seizure Skin: Normal appearance, normal turgor, no rashes [...] with hemoglobin 9.3 otherwise unremarkable. Imaging: Nine Prolonged care 01/26/2023 adding up the time that I spent with the patient today at bedside during both of her seizures, checking in with her between her seizures, discussion with nursing staff, discussion with EMS I spent approximately 75 minutes caring for the patient today. Assessment/Plan: Seizure disorder Also with history of nonepileptic seizures Followed by neurology Continue [facility] Hospitalized after recent prolonged breakthrough seizure with [...] a course of rifampin for small-bowel bacterialovergrowth. 01/26/2023: Patient had 2 more breakthrough seizures today, the 2nd of which developing into statusepilepticus requiring EMS activation and sent to hospital. Chronic abdominal pain with chronic nausea vomiting [...] Will need to follow-up with her established burning supervisor/bariatric surgeon at [facility] 01/24/2023: Better as of late. History of [...] on 01/27/2023. This note was dictated using Darudar*WelVU fluency dictation system and there may be errors in casting house worker. Despite proof reading the note, there may be mistakes and I apologize for those. By: Zain Peters, MATT, 01/26/2023 3:33 PM CDT documented in this encounter Plan of Treatment Not on file documented as of this encounter Visit Diagnoses Not on filedocumented in this encounter Care Teams Geospatial Image Analyst Relationship Specialty Start Date End Date Bushra Lyman MD [facility] [place] [address] PCP - General Bilingual Counter Sales Retail 01/13/21 12/28/23 Provider, None [place] PCP - General 12/29/23 02/27/24 Destiny Alfaro VOICE NETWORK ENGINEER, TROUBLE LINEMAN [address] [place] [facility] [address] [place] [id number] PCP - General Advanced Practice Nurse 02/28/24 Bushra Lyman MD [facility] [place] [address] Bilingual Counter Sales Retail 12/18/20 Angelique Vogel APRN, MYCOLOGY TEACHER [address] [place] [address] Nurse Practitioner Advanced Practice Nurse 11/11/21 Memo Plascencia MD [address] [place] [phone] Consulting Physician Oncology 02/28/24 documented as of this encounter
--- OUTSIDE RECORDS SUMMARY | 2025-02-24 18:21 | XMS_ITS | Encounter Summary ---
Author Organization [facility] Healthcare Address [address] [place] [address] Care Team Providers Care Bowl Attendant Name Role Phone Bushra Lyman MD Unavailable [phone] Alexy Molina MD Unavailable Henrik Qureshi MD Unavailable [phone] Bushra Lyman MD Primary Care Provider [phone] Destiny Alfaro VEHICLE SERVICE AGENT Primary Care Provider [phone] Dayne Aiken DO Unavailable [phone] Tianna Barcenas LCSW Unavailable Unavaila ble Destiny Alfaro VEHICLE SERVICE AGENT Primary Care Provider [phone] Carmelo Huang MD Unavailable [phone] Encounter Details Date Type Department Care Team (Latest Contact Info) Description 10/29/2022 Documentation Neurology Ayala Denny B.A. Social History Tobacco Use Types Packs/Day Years Used Date Smoking Tobacco: Former Cigarettes Q uit: 08/2019 Smokeless Tobacco: Former Quit: 07/12/2018 Comments:pt states she quit e-cigs three weeks ago Alcohol Use Standard Drinks/Week Comments Not Currently 0 (1 standard drink = 0.6 oz pure alcohol) 1 a month, intake depends on mood Social Connection and Isolation Panel [NHANES] A nswer Date Recorded In a typical week, how many times do you talk on the phone with family, friends, or neighbors? Twice a week 10/25/2022 How often do you get together with friends or re latives? Once a week 10/25/2022 How often do you attend taoism or mosque serv ices? Never 10/25/2022 Do you belong to any clubs o r organizations such as taoism groups, unions, fraternal or athletic groups, or school groups? No 10/25/2022 How often do you attend meet ings of the clubs or organizations you belong to? Never 10/25/2022 Are you , , di vorced, , never , or living with a partner? 10/25/2022 AUDIT-C Answer Date Recorded Q1: How often do you have a drink containing alcohol? Never 10/27/2022 Q2: How many drinks containi ng alcohol do you have on a typical day when you are drinking? Patient does not drink Q3: How often do you have si x or more drinks on one occasion? Never 10/27/2022 Overall Financial Resource Strain (CARDIA) Answe r Date Recorded How hard is it for you to pa y for the very basics like food, housing, medical care, and heating? Very hard 10/25/2022 PHQ-2 Answer Date Recorded PHQ-2 Total Score 2 10/25/2022 Hunger Vital Sign Answer Date Recorded Within the past 12 months, y ou worried that your food would run out before you got the money to buy more. Often true Within the past 12 months, t he food you bought just didn't last and you didn't have money to get more. Sometimes true PRAPARE - Transportation Answer Date Re corded In the past 12 months, has l ack of transportation kept you from medical appointments or from getting medications? No 10/06 In the past 12 months, has l ack of transportation kept you from meetings, work, or from getting things needed for daily living? No 10/25/2022 Housing Stability Vital Sign Answer Rocael e Recorded In the last 12 months, was t here a time when you were not able to pay the mortgage or rent on time? Yes 10/25/2022 In the last 12 months, how many places have you lived? 1 10/25/2022 In the last 12 months, was t here a time when you did not have a steady place to sleep or slept in a intermediate (including now)? No 10/25/2022 Comments No Sex and Gender Information Value Date Recorded Sex Assigned at Not on file Legal Sex Female 7:[address] TRANSCRIBER Gender Identity Female 09/05/2024 6:[address] TRANSCRIBER Sexual Orientation Straight 09/05/2024 6: [address] TRANSCRIBER documented as of this encounter Plan of Treatment Not on file documented as of this encounter Visit Diagnoses Not on filedocumented in this encounter Additional Health Concerns Infection Onset Date Last Indicated Resolved Time COVID: Suspected 06/01/2023 06/01/2023 06/01/2023 10:42 PM CDT COVID: Suspected 06/02/2023 06/02/2023 06/02/2023 3:13 AM CDT Norovirus 06/02/2023 06/02/2023 06/16/2023 3:[address] TRANSCRIBER COVID: Suspected Comment:Negative result. 06/20/2023 06/20/2023 06/21/2023 2:[address] TRANSCRIBER COVID: Suspected 10/11/2023 10/11/2023 10/11/2023 10:[address] TRANSCRIBER COVID: Suspected 02/25/2024 02/25/2024 02/25/2024 2:46 AM CDT COVID: Suspected 03/17/2024 03/17/2024 03/17/2024 7:34 PM CDT COVID: Suspected 03/17/2024 03/17/2024 03/17/2024 10:43 PM CDT COVID19 03/17/2024 03/17/2024 04/06/2024 3:05 AM CDT COVID: Recovered Comment:Added based on recent COVID infection. 04/06/2024 04/22/2024 07/05/2024 3:[address] COVID: Suspected 07/30/2024 07/30/2024 07/30/2024 6:[address] TRANSCRIBER COVID: Suspected 11/10/2024 11/10/2024 11/10/2024 12:26 PM CDT COVID: Suspected 12/08/2024 12/08/2024 12/08/2024 7:45 PM CDT documented as of this encounter Care Teams Bowl Attendant Relationship Specialty Start Date End Date Bushra Lyman MD [address] [place] [address] [place] [address] PCP - General 05/07/19 02/22/24 [place] [address] [address] [facility] [address] [place] [address] PCP - General Internal Medicine 02/23/24 11/04/24 Destiny Alfaro NP [address] [facility] [address] [place] [address] PCP - General Internal Medicine 11/05/24 Bushra Lyman MD [address] [place] [address] [place] [address] 08/01/18 Alexy Molina MD [address] [place] [address] [address] [facility] [address] [facility] [address] [place] [address] Neurologist Neurology 09/01/18 [place] [address] [address] [facility] [address] [place] [address] Psychiatrist Psychiatry & Neurology 09/01/18 Dayne Aiken DO [address] [place] [address] Medical Oncologist/Home Care Aide Hematology and Oncology 03/05/24 Tianna Barcenas, RETAIL GROCER Malted Milk Masher 08/23/24 10/22/24 Carmelo Huang MD [address] [place] [address] [place] [address] Consulting Physician Neurology 02/21/25 documented as of this encounter
--- OUTSIDE RECORDS SUMMARY | 2025-02-24 18:21 | XMS_ITS | Encounter Summary ---
Author Organization [facility] Healthcare Address [address] [place] [address] Care Team Providers Care Head Of Human Resources Name Role Phone Bushra Lyman MD Unavailable Alexy Molina MD Unavailable Henrik Qureshi MD Unavailable Destiny Alfaro FULL SERVICE SUPERVISOR Primary Care Provider Dayne Aiken DO Unavailable [phone] Tianna Barcenas LCSW Unavailable Unavaila ble Destiny Alfaro FULL SERVICE SUPERVISOR Primary Care Provider [phone] Carmelo Huang MD Unavailable Encounter Details Date Type Department Care Team (Late st Contact Info) Description 07/24/2024 Telephone [facility] Internal Medicine [address] [facility] [address] [place] [address] Destiny Alfaro NP [address] [facility] [address] [place] [address] Social History Tobacco Use Types Packs/Day Years Used Date Smoking Tobacco: Former Cigarettes 0.3 0 0 02/24/2024 - 03/04/2024 Vaping Smokeless Tobacco: Former Quit: 07/12/2018 Comments:pt states she quit e-cigs three weeks ago Alcohol Use Standard Drinks/Week Comments Not Currently 0 (1 standard drink = 0.6 oz pure alcohol) 1 a month, intake depends on mood [facility] Utilities Answer Date Recorded In the past 12 months has th [employer], gas, oil, or water company threatened to shut off services in your home? No 03/26/2024 Social Connection and Isolat ion Panel [NHANES] Answer Date Recorded In a typical week, how many times do you talk on the phone with family, friends, or neighbors? More than three times a week 03/26/2024 How often do you get togethe r with friends or relatives? More than three times a week 03/26/2024 How often do you attend chur ch or sabianist services? Never 03/26/2024 Do you belong to any clubs o r organizations such as islam groups, unions, fraternal or athletic groups, or school groups? No 03/26/2024 How often do you attend meet ings of the clubs or organizations you belong to? Never 03/26/2024 Are you , , di vorced, , never , or living with a partner? Patient declined 03/26/2024 AUDIT-C Answer Date Recorded Q1: How often do you have a drink containing alc ohol? Monthly or less 05/07/2024 Q2: How many drinks containi ng alcohol do you have on a typical day when you are drinking? 1 or 2 05/07/2024 Q3: How often do you have si x or more drinks on one occasion? Never 05/07/2024 Overall Financial Resource Strain (CARDIA) Answe r Date Recorded How hard is it for you to pa y for the very basics like food, housing, medical care, and heating? Somewhat hard 03/26/2024 PHQ-2 Answer Date Recorded PHQ-2 Total Score (If total score is 3 or more points, staff should administer the PHQ-9) 2 04/05/2024 Hunger Vital Sign Answer Date Recorded Within the past 12 months, y ou worried that your food would run out before you got the money to buy more. Never true 03/26/20 24 Within the past 12 months, t he food you bought just didn't last and you didn't have money to get more. Never true 03/26/2024 PRAPARE - Transportation Answer Date Re corded In the past 12 months, has l ack of transportation kept you from medical appointments or from getting medications? No 03/08 In the past 12 months, has l ack of transportation kept you from meetings, work, or from getting things needed for daily living? No 03/26/2024 Housing Stability Vital Sign Answer Rocael e [...] place to sleep or slept in a fdc (including now)? No 10/02/2023 Housing Stability Vital Sign Answer Rocael e Recorded In the last 12 months, was t here a time when you were not able to pay the mortgage or rent on time? No 03/26/2024 In the past 12 months, how m any times have you moved where you were living? 0 03/26/2024 At any time in the past 12 m [facility], were you homeless or living in a fdc (including now)? No 03/26/2024 Personal Safety Answer Date Recorded Have you ever been in or are you currently in a harmful physical or emotional relationship or is someone making you feel afraid or unsafe? Denies 05/18/2024 Education Answer Date Recorded What is the highest level of school you have completed or the highest degree you have received? Some college, no degree 01/05/2023 Comments No Sex and Gender Information Value Date Recorded Sex Assigned at Not on file Legal Sex Female 7:38 PM DIRECTOR HEDIS Gender Identity Female 09/05/2024 6:58 PM DIRECTOR HEDIS Sexual Orientation Straight 09/05/2024 6: 58 PM DIRECTOR HEDIS documented as of this encounter Plan of Treatment Not on file documented as of this encounter Visit Diagnoses Not on filedocumented in this encounter Additional Health Concerns Infection Onset Date Last Indicated Resolved Time COVID: Suspected 07/30/2024 07/30/2024 07/30/2024 6:31 AM DIRECTOR HEDIS COVID: Suspected 11/10/2024 11/10/2024 11/10/2024 12:26 PM CDT COVID: Suspected 12/08/2024 12/08/2024 12/08/2024 7:45 PM CDT documented as of this encounter Care Teams Head Of Human Resources Relationship Specialty [place] [address] [address] [facility] [address] [place] [address] PCP - General Internal Medicine 02/23/24 11/04/24 Destiny Alfaro NP [address] [facility] [address] [place], [place] [address] PCP - General Internal Medicine 11/05/24 Bushra Lyman MD [address] [place] [address] [address] [place], [place] [id number] 08/01/18 Alexy Molina MD [address] [place] [address] [address] [facility] [address] [facility] [address] [place] [address] Neurologist Neurology 09/01/18 [place] [address] [address] [facility] [address] [place] [address] Psychiatrist Psychiatry & Neurology 09/01/18 Dayne Aiken DO [address] [place] [address] Medical Oncologist/Sewer Pipe Layer Hematology and Oncology 03/05/24 Tianna Barcenas LCSW Process Control Tech 08/23/24 10/22/24 Carmelo Huang MD [address] [facility] [place] [address] Consulting Physician Neurology 02/21/25 documented as of this encounter
--- OUTSIDE RECORDS SUMMARY | 2025-02-24 18:21 | XMS_ITS | Encounter Summary ---
Author Organization [facility] Address [address] [place] [address] Phone Care Team Providers Care Director Of Emergency Nursing Name Role Phone Bushra Lyman MD Primary Care Provider [phone] Bushra Lyman MD Unavailable [phone] Angelique Vogel APRN, SPOT WASHER Unavailable [phone] Provider, None Primary Care Provider UnavailDestiny Camargo APRN, COMMERCIAL PHOTOGRAPHER Primary Care Provid er Memo Plascencia MD Unavailable [phone] Encounter Details Date Type Department Care Team (Late st Contact Info) Description 01/30/2023 Nursing Facility [facility] [address] [place] [address] Zain Peters, [facility] [address] [place], [place] [address] Social History Tobacco Use Types Packs/Day Years [...] as of this encounter Progress Notes * [place]Zain sharif, PAC - 01/30/2023 1:16 PM CDT [facility] PROGRESS NOTE Preethi Napier is a 27 y.o. female at [facility] for rehabilitation. Prior to coming to rehabilitation facility patient was hospitalized at [facility] from12/30/2022 through 01/05/2023 after suffering a prolonged breakthrough seizure that resulted in weakness on right side of her body, MRV was unremarkable however. While in the facility patient had another breakthrough prolonged seizure and ended up being hospitalized from 01/12/2023 through 01/17/2023 at [facility]. Readmitted to [facility] from 01/26/2023 through 01/28/2023 due to intractable seizures Subjective: Interval History: I am seeing patient today acutely for hospitalization follow-up. Patient returns to facility from [facility] over the weekend. She was hospitalized for 2 nights related to her intractable seizures. Says she is feeling ???okay?? . No acute symptoms or concerns. Her right-sided weakness seems to be much better on my exam today. She was seen by Neurology during her hospitalization. Lamictal was restarted. Recommended against Dilantin considering there is an interaction with her Eliquis. Apparently due to insurance issues shoe out follow-up with her neurologist at [facility], she is aware this and has the contact information. She is planning to go back home on Monday. I placed orders for lab draw be done tomorrow. Past Medical History Positives Diagnosis Date ??? [...] GASTRIC BYPASS,; Surgeon: Jorge Sierra DO; Location: [facility]; Service: Gastroenterology ??? UPPER GASTROINTESTINAL ENDOSCOPY N/A 04/29/2021 Procedure: EGD with PEG tube removal-HIATAL HERNIA, NO EVIDENCE OF BLEEDING, PEG TUBE NOT VISUALIZED; Surgeon: Shun Nguyen MD; Location: [facility]; Service: Gastroenterology ??? WISDOM TOOTH [...] unremarkable. CBC with hemoglobin 9.3 otherwise unremarkable. 01/28/2023 while hospitalized, BMP with calcium 8.2 otherwise unremarkable. CBC with hemoglobin 8.1otherwise unremarkable. Imaging: Nine Assessment/Plan: Seizure disorder Also [...] requiring EMS activation and sent to hospital. 01/30/2023: Patient returned from hospital over the weekend. Lamictal restarted. patient will follow-up with her neurologist at [facility], Dr. Huang. Chronic abdominal pain with chronic nausea vomiting [...] Will need to follow-up with her established slitter scorer cut off operator/bariatric surgeon at [facility] 01/24/2023: Better as of late. History of [...] going home after completion of skilled therapy 01/30: Planning on going home on 02/01. This note was dictated using basno*Berrybenka fluency dictation system and there may be errors in rn eligibility. Despite proof reading the note, there may be mistakes and I apologize for those. By: Zain Peters, PAC, 01/30/2023 1:17 PM CDT documented in this encounter Plan of Treatment Not on file documented as of this encounter Visit Diagnoses Not on filedocumented in this encounter Care Teams Director Of Emergency Nursing Relationship Specialty Start Date End Date Bushra Lyman MD [address] [place] [address] [place] [address] PCP - General Statistics Professor 01/13/21 12/28/23 Provider, None [place] PCP - General 12/29/23 02/27/24 Destiny Alfaro APRN, COMMERCIAL PHOTOGRAPHER [address] [address] PCP - General Advanced Practice Nurse 02/28/24 Bushra Lyman MD [address] [place] [address] [place] [address] Statistics Professor 12/18/20 Angelique Vogel APRN, SPOT WASHER [address] [place] [address] Nurse Practitioner Advanced Practice Nurse 11/11/21 Memo Plascencia MD [address] [place] [phone] Consulting Physician Oncology 02/28/24 documented as of this encounter
--- OUTSIDE RECORDS SUMMARY | 2025-02-24 18:21 | XMS_ITS | Encounter Summary ---
Author Organization [facility] Address [address] [place] [address] Phone Care Team Providers Care Emergency Dispatcher Name Role Phone Bushra Lyman MD Primary Care Provider [phone] Bushra Lyman MD Unavailable [phone] Angelique Vogel APRN, JOCKEY AGENT Unavailable [phone] Provider, None Primary Care Provider UnavailDestiny Camargo APRN, TREASURY ANALYST Primary Care Provid er Memo Plascencia MD Unavailable [phone] Encounter Details Date Type Department Care Team (Late st Contact Info) Description 01/12/2023 Nursing Facility [facility] [address] [place] [address] Zain Peters, [facility] [address] [place], [place] [address] Social History Tobacco Use Types Packs/Day Years [...] as of this encounter Progress Notes * [place]on BridgeZain arcos, PAC - 01/12/2023 1:30 PM CDT [facility] PROGRESS NOTE Preethi Napier is a 27 y.o. female at [facility] for rehabilitation. Prior to coming to rehabilitation facility patient was hospitalized at [facility] from12/30/2022 through 01/05/2023 after suffering a prolonged breakthrough seizure that resulted in weakness on right side of her body, MRV was unremarkable however. Subjective: Interval History: I was called urgently to the patient's room to evaluate the patient. Staff on the patient in her room lying in her bed unresponsive with blood coming out of the side of her mouth and concern for unwitnessed breakthrough seizure. Upon my exam she had normal respirations and heart rate normal to tachycardic but was having absence seizure-like activity as she continued to stare off to the right and was nonverbal and not following any commands and did not respond to sternal rub. Supplemental oxygen was placed but she maintained normal O2 saturations. After roughly 5 minutes of this she did develop a generalized tonic-clonic seizure. The bed had already been lowered to be low with position when she had the generalized seizure and she never fell out of the bed or suffered any injuries. This tonic-clonic seizure lasted maybe 30 seconds and then she went back into the absence seizure-like activity which she stayed in untilEMS arrived around 5 minutes after that. Past Medical History Positives Diagnosis Date ??? Asthma 2009 ??? Chronic nausea ??? Chronic vomiting ??? [...] GASTRIC BYPASS,; Surgeon: Jorge Sierra DO; Location: [facility]; Service: Gastroenterology ??? UPPER GASTROINTESTINAL ENDOSCOPY N/A 04/29/2021 Procedure: EGD with PEG tube removal-HIATAL HERNIA, NO EVIDENCE OF BLEEDING, PEG TUBE NOT VISUALIZED; Surgeon: Shun Nguyen MD; Location: [facility]; Service: Gastroenterology ??? WISDOM TOOTH EXTRACTION Review of Systems: A 14 point comprehensive review of systems was negative except what is documented in interval history above. Objective: Exam: Vital Signs: Recent vital signs were reviewed in the electronic medical records at nursing facility and are unremarkable. General: Well developed, well nourished, in no distress 01/12: Patient having active seizure-like activity, nonverbal, not following commands, blood coming from right side of mouth, Skin: Normal appearance, normal turgor, no rashes [...] mobility appears intact, no clubbing Neuro: CN intact, 01/10/23: 4/5 strength in right upper and lower extremity, 5/5 strength on left side of body Psychological: alert and oriented X3, appropriate mood and affect, Intact judgement and memory Lab Results: On 01/05/23 while hospitalized, CBC with hemoglobin 8.7 otherwise unremarkable. CMP unremarkable. Imaging: Nine Assessment/Plan: Seizure disorder Also with history of nonepileptic seizures Followed by neurology Helene Conteh Hospitalized after recent prolonged breakthrough seizure with right-sided weakness after her cognition improved MRV showing no obvious cause to her right-sided weakness according to Neurology [facility]ceiving [facility] care physical therapy rehabilitation 01/12/2023: Patient developed another prolonged breakthrough seizure just now. EMS was activated and she was still having seizure-like activity upon their arrival so she will be sent to the emergencyroom for further evaluation and care. I discussed case with EMS upon arrival to facility. Chronic abdominal pain History of gastric bypass During recent hospitalization CT scan of abdomen showed nothing acute Underwent upper GI barium study that was also normal No further workup recommended at this time according to GI, recommended daily PPI and p.r.n. Zofran The extended-release morphine that she has been on for the last few months will be continued Will need to follow-up with her established radial drill press set up operator/bariatric surgeon at [facility] History of bilateral recurrent brachial and jugular [...] skilled therapy This note was dictated using Sooqini fluency dictation system and there may be errors in bath solution maker. Despite proof reading the note, there may be mistakes and I apologize for those. By: Zain Peters, MATT, 01/12/2023 1:30 PM CDT documented in this encounter Plan of Treatment Not on file documented as of this encounter Visit Diagnoses Not on filedocumented in this encounter Care Teams Emergency Dispatcher Relationship Specialty Start Date End Date Bushra Lyman MD [facility] [place] [address] PCP - General Advisory Internship 01/13/21 12/28/23 Provider, None [place] PCP - General 12/29/23 02/27/24 Destiny Alfaro, BALANCE WHEEL ARM BURNISHER, TREASURY ANALYST [address] [facility] [address] [place] [address] [place] [address] OFF[address] CENTER [address] [place] [address] PCP - General Advanced Practice Nurse 02/28/24 Bushra Lyman MD [address] [place] [address] [place] [address] Advisory Internship 12/18/20 Angelique Vogel APRN, [facility] [address] [place] [address] Nurse Practitioner Advanced Practice Nurse 11/11/21 Memo Plascencia MD [address] [place] [phone] Consulting Physician Oncology 02/28/24 documented as of this encounter
--- OUTSIDE RECORDS SUMMARY | 2025-02-24 18:21 | XMS_ITS | Data Portability ---
Author Organization [facility] Address [address] [place] [address] Care Team Providers Care Glove Turner And Former Name Role Phone DELMISANTIAGOCAITIESHER Primary Care Provider CARLENE BASS All Source Intelligence Assessment No assessment recorded. Plan of Treatment Reminders Order Date Submit Date Provider Last Modified By Organization Details Last Modified Time Details Appointments None recorded. Lab None recorded. Referral reproductiv e endocrinolo gist referral 2019 020 PRECIOUS Martinez MD, [address] [facility] [address], [place], [address], 0 11:41:57 Procedures removal, implantable contracepti ve (PROC) 2017 018 [email or web address] Not available 8 15:17:11 Surgeries None recorded. Imaging None recorded. Medication Orders Nexplanon 68 mg subdermal implant 2016 017 [email or web address] [id number], [address], [place], [place], [id number], 8 14:19:32 Patient TargetsNo targets recorded. Patient Instructions Encounter Date Encounter Id Patient Instructions Last Modified By Organization Details Last Modified Time 03/30/2017 [id number] pt has new pcp-p t to f/u with new pcp [email or web address] Not available 03/30/2017 15:19:52 08/14/2019 [id number] learning about future and diabetes [email or web address] Not available 08/14/2019 11:25:00 learning about future when you are overweight [email or web address] Not available 08/14/2019 11:25:00 learning about planning for future [email or web address] Not available 08/14/2019 11:25:00 Reason for Referral Log Chain Feeder Referral for Trying to conceive Referring Physician: Luis Burns, HOMICIDE DETECTIVE, Encounter Date: 08/14/2019 Results Created Date Observation Date Name Description Value Unit Range Abnormal Flag Note LastModifiedBy Organization Detail LastModifiedTime 05/23/20 17 05/24/2017 HCG, intac t + beta subun it, quant , serum or plasm a HCG,beta subunit,qnt, serum <1 mIU/m L Femal e (Non- pregn ant) 0 - 5 (Post menop ausal ) 0 - 8 Femal e (Preg nant) Weeks of Gesta tion 3 6 - 71 4 10 - 750 5 217 - 6738 6 158 - 58778 7 3697 1633 63 8 20379 -1492 71 9 81218 -1514 10 10 00842 -186 77 12 75708 -2106 12 14 65506 - 68361 15 43209 - 04240 16 9078 - 43145 17 8175 - 56985 18 8099 - 58259 Viki ECLIA metho dolog y Not Available [facility] [address], [place], [address], 05/24/2017 07:12:37 06/22/20 17 06/23/2017 HCG, intac t + beta subun it, quant , serum or plasm a HCG,beta subunit,qnt, serum <1 mIU/m L Femal e (Non- pregn ant) 0 - 5 (Post menop ausal ) 0 - 8 Femal e (Preg nant) Weeks of Gesta tion 3 6 - 71 4 10 - 750 5 217 - 9838 6 158 - 01219 7 3697 -1635 63 8 44657 -1495 71 9 20227 -1514 10 10 62926 -1869 77 12 92701 -2106 12 14 93333 - 56419 15 00863 - 94025 16 9040 - 13569 17 8175 - 82082 18 8099 - 46403 Viki ECLIA metho dolog y Not Available [facility] ([facility]) [address], [place], [address], 06/23/2017 07:14:15 06/12/20 17 06/09/2017 XR, chest , 2 view No observ ation record ed. [facility] [address] [facility] [place] [place], [address], 06/13/2017 14:41:08 Result Notes None recorded. Problems Name Problem SNOMED Code Status Onset Date Resolution Date Notes Provider Name and Address Organization Details Recorded Time Obesity 657900785 Active Torsten Estrada MD Attn: Ceci dale,[address] [place], [address], [place] - [facility] 6 09:39:21 Candidiasi s of skin 37957492 Completed 07/20/2016 Torsten Estrada MD Attn: Ceci dale,[address] [place], [address], [place] [facility] 6 11:09:39 Hypothyroi dism 10530555 Active Torsten Estrada MD Attn: Ceci dale,[address] [place], [address], [place] [facility] 6 09:39:21 Mixed anxiety and depressive disorder 503145778 Active seeing psych Torsten Estrada MD Attn: Ceci dale,[address] [place], [address], [place] 7 12:27:08 Vaginitis 77721584 Completed 07/20/2016 Torsten Estrada MD Attn: Ceci dale,[address] [place], [address], [place] 6 11:09:28 Elevated blood-pres sure reading without diagnosis of hypertensi on 269319152 Completed 07/20/2016 Torsten Estrada MD Attn: [address] [place], [address], [place] [facility] 6 11:09:23 Gastroesop hageal reflux disease 881749342 Active Torsten Estrada MD Attn: Ceci dale,[address] [place], [address], [facility] - [facility] 6 10:06:16 Loose stool 656751135 Completed 07/20/2016 Torsten Estrada MD Attn: Ceci dale,[address] [place], [address], [facility] - [facility] 6 11:09:34 Insomnia 538606437 Active Torsten Estrada MD Attn: Ceci dale,[address] [place], [address], [facility] - [facility] 6 09:39:21 Essential hypertensi on 24102717 Active Torsten Estrada MD Attn: Ceci dale,[address] [place], [address], [facility] - [facility] 6 09:39:21 Problem Notes None recorded. Procedures Surgical History Date Name Laterality Status Provider Name and Address Organization Details Recorded Time 04/11/20 18 Control Implant Removal completed Luis Burns MD Attn: Accounting,[address] [place], [address], [place] [facility] 04/11/2018 10:26:58 06/23/20 17 Control Implant Insertion completed Luis Burns MD Attn: Accounting[address] [place], [address], [place] 06/23/2017 16:41:05 09/04/19 15 Control Implant Insertion completed RADHA Beard Attn: Accounting[address] [place], [address], [facility] - [facility] 09/04/2014 16:15:50 Tonsillectomy completed Ayala Rios MA [place] - [facility] 07/09/2014 12:38:19 Imaging Results None recorded. Procedure Notes None recorded. Medical Equipment None Reported. Allergies Allergen ID Allergen Name Allergen Category Reaction Reaction Severity Criticality Documentation Date Start Date Code Code System Note Provider Name and Address Organization Details Recorded Time 5032 Desi medicatio n hives Not available Not available 07/09/2014 41246 6 RxNorm Jbsa RandolphANGELA Do[place], [place] - [place] 4 12:38:19 5033 codeine medicatio n hives Not available Not available 07/09/2014 2670 RxNorm AyalaANGELA Quiroz, [place] - [facility] 4 12:38:19 Medications Name Sig Start Date Stop Date Status Note LastModified by Organization Details LastModified Time sertralin e tab 50mgsertr miryam hcl active Not Available Not Available No t Available levothyro luis carlos tab 50mcglevo thyroxine sodium active Not Available Not Available Not Available sertralin e hcl 100 mg tabs active Not Available Not Available Not Available ventolin hfa 108 (90 base) mcg/actae rs active Not Available Not Available Not Available levothyro xine sodium 50 mcg tabs active Not Available Not Available Not Available bupropion hcl sr 150 mg tb12 active Not Available Not Available Not Available naproxen 500 mg tabs active Not Available Not Available Not Available benzonata te 200 mg caps active Not Available Not Available Not Available sertralin e tab 100mgsert raline hcl active Not Available Not Available Not Available bupropion tab 150mg srbupropi on hcl sr active Not Available Not Available No t Available sertralin e hcl 50 mg tabs active Not Available Not Available Not Available azithromy raffi 250 mg tabs active Not Available Not Available Not Available fluoxetin e 40 mg capsule Take 1 capsule every day by oral route. 11/11 completed Not Available Not Available Not Available trazodone 50 mg tablet Take 1 tablet every day by oral route at bedtime. 11/11 completed pt to take 1/2 tab ( feeling tired next day ) Not Available Not Available Not Available Topamax 25 mg tablet Take 1 tablet every day by oral route. active psych Not Available Not Available No t Available fluconazo le 150 mg tablet Take by oral route po once active Not Available Not Available No t Available Paxil 20 mg tablet Take 1 tablet every day by oral route. active psych Not Available Not Available No t Available sertralin e 100 mg tablet active Not Available Not Available Not Available Wellbutri n SR 150 mg tablet, 12 hr sustained -release Take 1 tablet twice a day by oral route. 03/30 completed Not Available Not Available Not Available omeprazol e 40 mg capsule,d elayed release Take 1 capsule every day by oral route. 11/11 completed Not Available Not Available Not Available amoxicill in 500 mg tablet Take 1 tablet 3 times a day by oral route for 7 days. 03/30 completed Not Available Not Available Not Available estradiol 1 mg tablet 07/20 completed Not Available Not Available Not Available levothyro xine 50 mcg tablet TAKE 1 TABLET(S ) EVERY DAY BY ORAL ROUTE. 2015 active Not Available Not Available Not Avai lable hydroxyzi ne HCl 25 mg tablet Take 1 tablet twice a day by oral route. 2013 active Not Available Not Available Not Avai lable fluoxetin e 20 mg capsule Take 1 capsule every day by oral route. 07/20 completed Not Available Not Available Not Available sertralin e 50 mg tablet Take 1 tablet(s ) every day by oral route with 100mg daily(to lluvia 150mg). 2014 active taper dose Not Available Not Available Not Available 08/26 (28) 1 mg-20 mcg (21)/75 mg (7) tablet Take 1 tablet every day by oral route. 2017 active Not Available Not Available Not Avai lable sertralin e 100mg once a day 03/30 completed med changed during hospital ization ( prozac disconti nued ) Not Available Not Available Not Available hydrochlo rothiazid e 12.5 mg tablet Take 1 tablet every day by oral route. 03/30 completed Not Available Not Available Not Available Nexplanon 68 mg subdermal implant Inject 1 implant by subcutan eous route. 05/16 completed Not Available Not Available Not Available Pauline 14 mcg/24 hr (up to 3 years) 13.5 mg intrauter ine device Take by intraute rine route. 04/11 completed Not Available Not Available Not Available Flonase Allergy Relief 50 mcg/actua tion nasal spray,[place] [employer] [place] 2 sprays every day by intranas al route. 03/30 completed Not Available Not Available Not Available Vitals Date Recorded Body height Provider Name an d Address Organization Details Last Updated DateTime 08/14/2019 165.1 cm Lucy Lindsey MA [facility] 08/14/2019 09:48:08 Date Recorded Body height Body mass index (BMI) Body weight Systolic And Diastolic Provider Name and Address Organization Details Last Updated DateTime 03/16/2017 165.1 cm 49.8 kg/m2 000900.41 g 138/84 mm[Hg] Analilia Mayes MA [facility] 03/16/2017 10:48:19 Date Recorded Body height Body mass index (BMI) Body weight Heart rate Respiratory rate Body temperature Oxygen saturation Oxygen saturation in Arterial blood by Pulse oximetry Systolic And Diastolic Provider Name and Address Organization Details Last Updated DateTime 7 165.1 cm 49.9 kg/m2 538866. 27 g 92 /min 12 /min 98.2 [degF] 100 % 100 % 130/84 mm[Hg] Annabella Santiago [facility] 7 12:10:58 Date Recorded Body height Body mass index (BMI) Body weight Systolic And Diastolic Provider Name and Address Organization Details Last Updated DateTime 04/11/2018 165.1 cm 38.8 kg/m2 678162.02 g 124/80 mm[Hg] Tere Yu MA [facility] 04/11/2018 09:09:50 Date Recorded Body height Body mass index (BMI) Body weight Systolic And Diastolic Provider Name and Address Organization Details Last Updated DateTime 06/23/2017 165.1 cm 50.8 kg/m2 572065.11 g 148/90 mm[Hg] Angelique Gonzalez MA [facility] 06/23/2017 16:24:02 Social History Question Answer Notes LastModified by Organizat ion Details LastModified Time Tobacco Smoking Status Former Smoker Quit 02/2017 Not Available [facility] 06/09/2020 03:39:30 What Is Your Level Of Caffeine Consumption? Heavy Tea [id number] Information not available 06/09/2020 How Much Tobacco Do You Chew? None [id number] Information not available 06/09/2020 What Type Of Diet Are You Following? REGULAR [id number] Information not available 06/09/2020 Which Illicit Or Recreational Drugs Have You Used? Denies [id number] Information not available 06/09/2020 Education 12 Some College Information not available 03/30/2017 Marital Status Informatio n not available 07/20/2016 What Was The Date Of Your Most Recent Tobacco Screening? 04/11/2018 [id number] Information not available 06/09/2020 At What Age Did You Start Smoking Tobacco? 18 [id number] Information not available 06/09/2020 General Stress Level Medium Med - High Information not available 03/30/2017 How Many Years Have You Smoked Tobacco? 2 [id number] Information not available 06/09/2020 Sex: Unknown Functional Status Question Answer Note LastModified by Organizat ion Details LastModified Time What is your level of alcohol consumption? 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 Moderate [id number] Information not available 06/09/2020 Mental Status None recorded. Family History Relationship Description Onset Age of this Age Resolved Age Notes LastModified by Organization Details LastModified Time Maternal Grandfather Diabetes mellitus [email or web address] Not available 2014 10:45:05 Maternal Grandfather Hypertensive disorder [email or web address] Not available 2014 10:45:05 Mother Hypertensive disorder [email or web address] Not available 2014 10:45:05 Father Hypertensive disorder [email or web address] Not available 2014 10:45:05 Unspecified Relation Family history of sleep apnea Not available 07/07 10:58:31 Medical History Condition Response Anxiety Disorder Y High Blood Pressure Y Seizures/Epilepsy Y Acid Reflux (GERD) Y Headaches/Migraines Y Thyroid Problems Y Depression Y Asthma Y Allergies Y Gynecological History Statement/Question Response Abnormal Pap N Flow Heavy Date of LMP 09/07/2016 STIs/STDs N Duration of Flow (days) 5 Age at Menarche 12 Current Control Method None Sexually Active? Y Menses Monthly N Date of Last Pap Smear LMP Definite Desired Control Method Seeking Pre gnancy Obstetrics History GPAL:G 0 P 0 0 0 0 Immunizations Vaccine Type Date Status Note Provider Nam e and Address Organization Details Recorded Time Influenza, split virus, quadrivalent, preservative 6 completed Not Available [facility] 08/24/2019 02:33:00 Influenza, split virus, quadrivalent, preservative 5 completed Not Available [facility] 08/24/2019 02:46:38 Tdap 6 completed Annabella sierra [facility] 03/30/2017 12:12:42 Past Encounters Encounter ID Performer Location Encounter Start Date Encounter Closed Date Diagnosis/Indication Diagnosis SNOMED-CT Code Diagnosis ICD10 Code Diagnosis Note [id number] MD Janell Valdez (Adult Med) [address] [place] [address] 07/09/2014 12:00:25 07/09/2014 15:30:31 Hypothyroidism 96122884 Noncomplia nt with med Restart med and lab to be done 1 wk prior to next visit Mixed anxi ety and depressive disorder 102409314 not well controlled due to noncomplia nt with med Restart med Vaginitis 98494195 [id number] Leisa Alexander [facility] Bertin Clayton ([facility] 122) [address] [facility] [place] [address] 08/20/2014 10:20:38 08/20/2014 11:59:37 Gynecologic examination 97802455 Will order Nexplanon. [id number] MD Bertin Pollock ([facility] 122) [address] [facility] [place] [address] 09/04/2014 14:08:07 09/05/2014 12:41:12 Implantation of subcutaneous contraceptive 382641008 [id number] MD Janell Valdez (Adult Med) [address] [place] [address] 09/24/2014 16:01:40 09/24/2014 17:06:11 Hypothyroidism 58836209 continue same pt did not do her labs yet Mixed anxi ety and depressive disorder 822459084 not well controlled D/c Hydroxyzin e due to fatigue Add Wellbutrin continue Zoloft pt to make apt with psych at [facility] Obesity 766802063 [id number] MD Janell Chaudhary (Adult Med) [address] [place] [address] 09/26/2014 15:23:34 09/26/2014 16:31:34 Candidiasis of skin 21677964 Naval with moist lesion, likely yeast infection from being warm, dark, moist environmen t for darren to multiply. Took aerobe and anerobe culture. Will send antibiotic /nystatin if needed once results available. [id number] [facility] [address] [place] [address] 11/26/2014 14:44:30 11/26/2014 15:22:43 Mixed anxiety and depressive disorder 167787520 D/c Hydroxyzin e due to fatigue Continue Wellbutrin Increase Zoloft to 150mg daily pt to make apt with psych at [facility] Hypothyroidism 25926098 continue same [id number] [facility] [address] [place] [address] 04/07/2015 08:27:26 04/07/2015 09:11:34 Mixed anxiety and depressive disorder 476296994 D/c Hydroxyzin e due to fatigue Continue Wellbutrin Increased Zoloft to 150mg daily pt to come for counseling -informati on given to make apt Refer to psych Hypothyroidism 16861093 continue same Elevated blood-pressure reading without diagnosis of hypertension 707756525 diet and exercise to loose wt Adult heal th examination 131348864 Tuberculos is screening 355905568 [id number] MD Giovanna Valdezhalto (Adult Med) [address] [place] [address] 04/29/2015 14:48:04 05/06/2015 14:49:40 Influenza vaccine needed 9038753473 [id number] MD Janell Valdez (Adult Med) [address] [place] [address] 05/15/2015 08:44:37 05/15/2015 10:42:42 Hypothyroidism 21959137 E03.8 continue same Mixed anxi ety and depressive disorder 223537569 F34.1 D/c Hydroxyzin e due to fatigue pt stopped Wellbutrin on her own due to nausea Increased Zoloft to 150mg daily pt to come for counseling -informati on given to make apt Refered to psych Elevated blood-pressure reading without diagnosis of hypertension 580566496 R03.0 diet and exercise to loose wt Obesity 517881540 E66.09 discussed about wt loss program ( curves) offered by her insurance to join diet and exercise discussed with pt [id number] [facility] [address] [place] [address] 08/14/2015 08:52:37 08/18/2015 13:17:12 Hypothyroidism 44218630 E03.8 continue same Mixed anxi ety and depressive disorder 411273460 F34.1 not well controlled D/c Hydroxyzin e due to fatigue pt stopped Wellbutrin on her own due to nausea Taper Zoloft 100 mg for 1 wk and 50mg for 2 wks and then discontinu e Start pt on Prozac pt to come for counseling Refered to psych-did not see one yet Obesity 965548541 E66.09 diet and exercise discussed with pt Gastroesop hageal reflux disease 179989329 K21.9 [id number] MD Giovanna Valdezhalto (Adult Med) [address] [place] [address] 09/16/2015 09:19:21 09/16/2015 12:33:19 Hypothyroidism 27244693 E03.8 continue same Mixed anxi ety and depressive disorder 803742167 F34.1 D/c Hydroxyzin e due to fatigue pt did not tolerate Wellbutrin (nausea) discontinu ed Zoloft ( did not help per pt ) continue Prozac Refered to psych-did not see one yet [id number] MD Janell Valdez (Adult Med) [address] [place] [address] 12/03/2015 09:00:51 12/03/2015 10:42:01 Hypothyroidism 16119782 E03.8 continue same Mixed anxi ety and depressive disorder 898762256 F34.1 D/c Hydroxyzin e due to fatigue pt did not tolerate Wellbutrin (nausea) discontinu ed Zoloft ( did not help per pt ) continue Prozac will add Trazodone for sleep- also check sleep study Refered to psych-did not see one yet Loose stool 495442161 R1 9.7 check stool study Obesity 593351599 E66.09 diet and exercise discussed with pt Insomnia 696867586 G47.0 0 Essential hypertension 23646944 I10 low salt diet start pt on HCTZ pt to eat more fruits [id number] MD Janell Valdez (Adult Med) [address] [place] [address] 07/20/2016 10:07:23 07/21/2016 11:24:58 Mixed anxiety and depressive disorder 652708253 F34.1 not well controlled - pt missed f/uD/stephani Hydroxyzin e due to fatigue ,pt did not tolerate Wellbutrin (nausea)di scontinued Zoloft ( did not help per pt )Increase ProzacTake 1/2 tab Trazodone for sleep- also check sleep studywill Refer to psych againpt to see counsellor Essential hypertension 30362601 I10 continue HCTZ Hypothyroidism 78689979 E03.8 continue Levothyrox in 50 mcg daily Administra tion of influenza vaccine 38580572 Z23 Obesity 649520564 E66.09 diet and exercise discussed with pt [id number] [facility] [address] [place] [address] 11/11/2016 08:53:48 11/14/2016 11:37:37 Mixed anxiety and depressive disorder 267875820 F34.1 pt was started on Zoloft per psychiatri st ( prozac was tapered and discontinu ed during hospitaliz ation)pt has apt to make with psychiatri st Seizure disorder 5017884 02 G40.909 pt is not on any meds per hospital records -it was thought that it is due to conversion disorder vs nonepilept ic SZ pt to make apt with neurologis t as out patient [id number] MD Giovanna Valdezhalto (Adult Med) [address] [place] [address] 11/24/2016 14:54:47 11/28/2016 13:18:48 Acute sinusitis 74478364 J01.90 increase fluid Mixed anxi ety and depressive disorder 387711086 F34.1 pt was started on Zoloft per psychiatri st ( prozac was tapered and discontinu ed during hospitaliz ation)pt has apt with psychiatrsheeba last-apt in 2 nd wk of januarypt wants to go back on wellbutrin [id number] MD Bertin Cormier ([facility] 122) [address] [facility] [place] [place] [address] 03/16/2017 10:06:14 03/16/2017 16:09:41 Contraception care management 925444123 Z30.9 - Order Nexplanon- Perform quant BHCG day prior to insertion- Obtain records from prior pap smear [id number] [facility] [address] [place] [address] 03/30/2017 11:45:07 03/31/2017 13:54:31 Obesity 587173882 E66.09 diet and exercise discussed with ptpt is interested in wt loss sx Mixed anxi ety and depressive disorder 661233291 F34.1 pt is seeing betty last and is on paxil/ topamax Hypothyroidism 29715284 E03.8 continue Levothyrox in 50 mcg daily [id number] MD Bertin Cormier ([facility] 122) [address] [facility] [place] [place] [address] 06/23/2017 15:39:43 06/23/2017 18:34:05 Insertion of subcutaneous contraceptive done 9350741489 00959 Z30.46 informed patient to use back up method for 7 days. [id number] MD eBrtin Cormier 14 OB [address] [facility] [address] [place] [address], [place] [address] 04/11/2018 08:55:12 04/12/2018 12:24:20 Removal of subcutaneous contraceptive done 7091490244 25513 Z30.46 [id number] MD Bertin Cormier 14 OB [address] [facility] [address] [place] [address], [place] [address] 08/14/2019 09:43:31 08/15/2019 11:28:17 Trying to conceive 809400861 Z31.9 Health Concerns Section Related Observation LastModified by Organization Detai ls LastModified Time None Recorded Concern Status LastModified by Organization Details LastModified Time None Recorded Advance Directives Directive None Recorded Payers Insurance Date Sequence Insurance Name Policy Number Policy Rene Covered Member ID Rene Member ID Guarantor Name 08/14/2019 1 [facility] [id number] Preethi Napier-Aubrey lexander [id number] Preethi Napier-A lexander 04/16/2019 1 [facility] [place] [facility] [place] [facility]ESS ([place] [id number] Preethi Wan [id number] Preethi Napier-A lexander 04/16/2019 1 [place] [facility] DEPART[facility] OF PUBLIC AID Preethi Blas [id number] Preethi Napier-A lexander 04/16/2019 1 [facility] [place] (PPO[place] [id number] Preethibecka Blas [id number] Preethi Napier-A lexander 04/16/2019 1 [facility] (MEDICAID HMO) Preethi Blas [id number] Preethi Napier-A lexander 04/16/2019 1 [facility] [id number] Preethi Blas [id number] Preethi Napier-A lexander 04/16/2019 1 [place] [facility] EM[facility] DEPARTMENT OF PUBLIC AID Preethi Blas [id number] Preethi Napier-A lexander 04/16/2019 1 [facility] [place] [id number] Preethibecka Blas [id number] Preethi Napier-A lexander 04/16/2019 1 [place] (PP[place] [id number] Preethibecka Blas [id number] Preethi Napier-A lexander 04/16/2019 1 [facility] (MEDICAID HMO) Pretehi Blas [id number] Preethi Napier-A lexander 04/16/2019 1 [place] [facility] EMERGENCY DEPARTMENT OF PUBLIC AID Preethi Blas [id number] Preethi Napier-A lexander 04/16/2019 2 [facility] - DOS PRIOR TO 2021 (MEDICAID REPLACEMENT - HMO) Preethi Blas [id number] Preethi Napier-A lexander 04/16/2019 1 [place] [facility] EMERGENCY DEPARTMENT OF PUBLIC AID Preethi Blas [id number] Preethi Napier-A lexander 04/16/2019 1 ADMINISTRATIVE CONCEPTS Preethi Napier-A lexander [id number] Preethi NapierHeidi garnica 08/14/2019 2 [facility] Preethi garnica [id number] Preethi garnica Notes Date Note Type Note Provider Name and Address Organization Details Recorded Time 03/16/2017 text/html Patient presents to discuss contraceptive options. She has used nexplanon and Mirena IUD in the past and would like a Nexplanon again. She had an annual performed 8 months ago. She denies any other complaints. Luis Burns MD Attn: Accounting,[address] [facility], [place], [address], [facility] 03/16/2017 15:40:42 03/30/2017 text/html ObesityReported bypatient.Diagnosis Summary:additional diagnosis: hypertension Context:no inhaled steroids; no oral steroids Associated Symptoms:depression or anger symptoms;hypothyroidi sm Nutrition:eats low carbohydrate diet; restricting concentrated sugars Physical Activity:reported frequency of moderate level of physical activity per week: 2-4 daysNotes:pt started seeing psychiatrist , taking paxil for depression. Pt also interested in wtloss sx , seeing another pcp in [facility]. Torsten Estrada MD Attn: Accounting,[address] [facility], [place], [address], [facility] 03/30/2017 15:20:15 06/23/2017 text/html Patient presents for Nexplanon insertion. She denies any current complaints. Luis Burns MD Attn: Accounting,[address] [place], [address], [facility] 06/23/2017 16:42:42 04/11/2018 text/html Patient presents for Nexplanon removal. She desires to have children in the near future. Luis Burns MD Attn: Accounting,[address] [place], [address], [facility] 04/11/2018 10:27:56 08/14/2019 text/html Patient presents to discuss infertility. She states she has been trying to get for the last year with her . The states she has a menstrual cycle monthly and has taken ovulation test kits which have been positive. She desires a referral to a reproductive specialist. She denies any other complaints. Luis Burns MD Attn: Accounting,[address] [place], [address], [facility] 08/14/2019 11:25:18 OBGyn Episode No OBEpisode recorded.
--- OUTSIDE RECORDS SUMMARY | 2025-02-24 18:21 | XMS_ITS | Encounter Summary ---
Author Organization [facility] Address [address] [place] [address] Phone Care Team Providers Care Marina Dry Dock Manager Name Role Phone Bushra Lyman MD Primary Care Provider [phone] Bushra Lyman MD Unavailable [phone] Angelique Vogel APRN, THERMAL CUTTER HELPER Unavailable [phone] Provider, None Primary Care Provider UnavailDestiny Camargo APRN, COOK CASHIER FOOD PREP Primary Care Provid er Memo Plascencia MD Unavailable [phone] Encounter Details Date Type Department Care Team (Late st Contact Info) Description 01/10/2023 Nursing Facility [facility] [address] [place] [address] Zain Peters, [facility] [address] [place], [place] [address] Social History Tobacco Use Types Packs/Day Years [...] as of this encounter Progress Notes * LorraineZain, PAC - 01/10/2023 1:16 PM CDT [facility] PROGRESS NOTE Preethi Napier is a 27 y.o. female at [facility] for rehabilitation. Prior to coming to rehabilitation facility patient was hospitalized at [facility] from12/30/2022 through 01/05/2023 after suffering a prolonged breakthrough seizure that resulted in weakness on right side of her body, MRV was unremarkable however. Subjective: Interval History: Patient is lying in bed. Just came to the facility yesterday. Had went home for brief period of time after hospitalization but apparently was having issues with getting therapy any other way. Says she is feeling ???okay?? and ???tired?? . No acute symptoms or concerns. She is hopeful that her therapy will go well and she regains her strength in the right side of her body which is still fairly weak. She tells me about her chronic abdominal pain which has been present essentially since after havingher gastric bypass done in 2017. Worse with p.o. intake. Does have history of gastric ulcers and esophageal strictures. Is not being followed by Gastroenterology/bariatric surgery at [place]. Past Medical History Positives Diagnosis Date ??? [...] GASTRIC BYPASS,; Surgeon: Jorge Sierra DO; Location: [facility]; Service: Gastroenterology ??? UPPER GASTROINTESTINAL ENDOSCOPY N/A 04/29/2021 Procedure: EGD with PEG tube removal-HIATAL HERNIA, NO EVIDENCE OF BLEEDING, PEG TUBE NOT VISUALIZED; Surgeon: Shun Nguyen MD; Location: [facility]; Service: Gastroenterology ??? WISDOM TOOTH EXTRACTION Review of Systems: A 14 point comprehensive review of systems was negative except what is documented in interval history above. Objective: Exam: Vital Signs: Recent vital signs were reviewed in the electronic medical records at nursing facility and are unremarkable. General: Well developed, well nourished, in no distress Skin: Normal appearance, normal turgor, no rashes [...] history of nonepileptic seizures Followed by neurology [facility] Hospitalized after recent prolonged breakthrough seizure with right-sided weakness after her cognition improved MRV showing no obvious cause to her right-sided weakness according to Neurology [facility] physical therapy rehabilitation Chronic abdominal pain History of gastric bypass [...] Will need to follow-up with her established tappet adjuster/bariatric surgeon at [place] History of bilateral recurrent brachial and jugular [...] skilled therapy This note was dictated using Risktail fluency dictation system and there may be errors in java security architect. Despite proof reading the note, there may be mistakes and I apologize for those. By: Zain Peters, PAC, 01/10/2023 1:17 PM CDT documented in this encounter Plan of Treatment Not on file documented as of this encounter Visit Diagnoses Not on filedocumented in this encounter Care Teams Marina Dry Dock Manager Relationship Specialty Start Date End Date Bushra Lyman MD [address] [place] [place] [address] [place] [address] PCP - General Assembler Body 01/13/21 12/28/23 Provider, None [place] PCP - General 12/29/23 02/27/24 Destiny Alfaro APRN, COOK CASHIER FOOD PREP [address] [facility] [address] [place] [facility] [address] [place] [id number] PCP - General Advanced Practice Nurse 02/28/24 Bushra Lyman MD [address] [place] [address] [place] [address] Assembler Body 12/18/20 Angelique Vogel APRN, THERMAL CUTTER HELPER [address] [place] [address] Nurse Practitioner Advanced Practice Nurse 11/11/21 Memo Plascencia MD [address] [place] [id number] Consulting Physician Oncology 02/28/24 documented as of this encounter
--- OUTSIDE RECORDS SUMMARY | 2025-02-24 18:23 | XMS_ITS | Clinical Summary ---
Author Organization [facility] Address [address] [place] [address] Phone Care Team Providers Care Trouble Dispatcher Name Role Phone Bushra Lyman MD Unavailable [phone] Angelique Vogel APRN, FLIGHT ENGINEER INSTRUCTOR Unavailable [phone] Destiny Alfaro APRN, MASONRY CONTRACTOR Primary Care Provid er Memo Plascencia MD Unavailable [phone] Allergies Active Allergy Reactions Criticality Noted Date Comments Fexofenadine Hives Low 04/01/2018 Azithromycin Hives Low 04/01/2018 Codeine Hives,Swelling Low 04/01/2018 Codeine Hives Low 01/18/2021 [place] Hives High 01/18/2021 Nsaids Unknown Low 12/24/2023 Oxycodone-Acetaminophen Hives Low 04/01/2018 Trimethobenzamide Hcl Rash Low 09/25/2021 Lacosamide Other (see Comments) Low 01/24/2021 bradycardia Medications * This document contains information received from the source organization and may not represent a complete record from that organization. sucralfate (CARAFATE) 1 GM/10ML Suspension Take 10 mL by mouth 4 times daily. 1200 mL 01/20/20 21 Active promethazine (PHENERGAN) 25 MG Suppository 1 Suppository by Rectal route every 6 hours as needed for Nausea - 2nd line (vomiting). 12 Suppository 04/06/20 22 Active Multiple Vitamin (MULTIVITAMIN ADULT PO) multivitamin tablet TAKE 1 TABLET BY MOUTH DAILY Active VITAMIN A PO Take 10,000 Units by mouth daily. Active albuterol 108 (90 Base) MCG/ACT Aerosol Solution take 2 Puffs by inhalation every 4 hours as needed. 05/03/20 21 Active busPIRone (BUSPAR) 10 MG Tablet Take 10 mg by mouth daily. Active cyclobenzaprin e (FLEXERIL) 10 MG Tablet cyclobenzaprine 10 mg tablet TAKE 1 TABLET BY MOUTH THREE TIMES DAILY NEEDED FOR MUSCLE SPASMS 03/16/20 22 Active diphenhydrAMIN E (BENADRYL) 25 MG Capsule Take 50 mg by mouth every 6 hours as needed. Active famotidine (PEPCID) 20 MG Tablet Take 20 mg by mouth daily. 01/13/20 22 Active folic acid (FOLVITE) 1 MG Tablet Take 1 mg by mouth daily. 10/13/19 22 Active hydrOXYzine (VISTARIL) 50 MG Capsule Take 50 mg by mouth every 6 hours as needed. Active omeprazole (PriLOSEC) 20 MG CAPSULE DELAYED RELEASE Take 20 mg by mouth. 01/13/20 22 Active ondansetron (ZOFRAN-ODT) 4 MG TABLET DISPERSIBLE Take 4 mg by mouth every 6 hours as needed for Nausea - 1st line. Active metoclopramide (REGLAN) 10 MG Tablet Take 1 Tablet by mouth 4 times daily (before meals and nightly). 30 Tablet 08/14/19 23 Active levETIRAcetam (KEPPRA) 500 MG/5ML Solution 15 mL by Intravenous route 2 times daily. 300 mL 08/24/19 23 Active Eliquis 5 MG Tablet 09/06/19 23 Active acetaminophen (TYLENOL) 325 MG Tablet Take 650 mg by mouth every 4 hours as needed for Mild or more severe pain. Active Cariprazine HCl (Vraylar) 3 MG Capsule Take 3 mg by mouth daily. Active Active Problems Problem Noted Date Diagnosed Date Opioid withdrawal 01/23/2024 History of DVT (deep vein thrombosis) 01/23/2024 Peptic ulcer 01/23/2024 Depression 01/23/2024 Vaping nicotine dependence, non-tobacco product 01/23/2024 PICC line infection 08/20/2022 MSSA (methicillin susceptibl e Staphylococcus aureus) septicemia 08/20/2022 Upper GI bleeding 08/15/2022 Seizure 08/13/2022 Syncope 04/09/2022 Diarrhea 04/09/2022 Acute blood loss anemia 04/28/2021 Skin infection at gastrostomy tube site 04/26/20 21 Psychogenic nonepileptic seizure 02/12/2021 Seizure disorder 02/10/2021 Normochromic normocytic anemia 02/10/2021 Anxiety 02/10/2021 High blood pressure 02/10/2021 Hypothyroidism 02/10/2021 Insomnia 02/10/2021 Mixed anxiety and depressive disorder 02/10/2021 Asthma 01/24/2021 GERD (gastroesophageal reflux disease) Morbid obesity with body mas s index (BMI) of 40.0 to 44.9 in adult 01/24/2021 Cellulitis and abscess of trunk 01/19/2021 Severe protein-calorie malnutrition Resolved Problems Problem Noted Date Diagnosed Date Resolved Date Elevated lactic acid level 01/27/2023 0 01/28/2023 Intractable seizures 01/26/2023 023 Nausea and vomiting 02/09/2021 02/13/20 Hypokalemia 01/24/2021 01/25/2021 Laceration of forehead 01/24/202101/25 Contusion of forehead 01/24/20212020 Headache 01/24/2021 01/25/2021 Dizziness 01/24/2021 01/25/2021 Immunizations Immunization Administration Dates Next Due TDAP Vaccine 11/10/2021 Family History Medical History Relation Name Comments Hypertension Father Diabetes Maternal Grandmother Relation Name Status Comments Father Maternal Grandmother Social History Tobacco Use Types Packs/Day Years Used Date Smoking Tobacco: Never Smokeless Tobacco: Never Tobacco Cessation:Counseling Given: Not Answered Comments:Vapes nicotine daily Alcohol Use Standard Drinks/Week Comments Not Currently 0 (1 standard drink = 0.6 oz pur e alcohol) [facility] Utilities Answer Date Recorded In the past 12 months has e electric, gas, oil, or water company threatened to shut off services in your home? Yes 01/23/2024 Social Connection and Isolation Panel Answer Date Recorded In a typical week, how many times do you talk on the phone with family, friends, or neighbors? Never 01/23/2024 How often do you get together with friends or re latives? Never 01/23/2024 How often do you attend quaker or confucianist serv ices? Never 01/23/2024 Do you belong to any clubs o r organizations such as quaker groups, unions, fraternal or athletic groups, or school groups? No 01/23/2024 How often do you attend meet ings of the clubs or organizations you belong to? Never 01/23/2024 Are you , , di vorced, , never , or living with a partner? 01/23/2024 AUDIT-C Answer Date Recorded Q1: How often do you have a drink containing alc ohol? Monthly or less 01/23/2024 Q2: How many drinks containi ng alcohol do you have on a typical day when you are drinking? 1 or 2 01/23/2024 Q3: How often do you have si x or more drinks on one occasion? Never 01/23/2024 Overall Financial Resource Strain (CARDIA) Answe r Date Recorded How hard is it for you to pa y for the very basics like food, housing, medical care, and heating? Very hard 01/23/2024 [facility] - Occupational Stress Questionnaire Answer Date Recorded Do you feel stress - tense, restless, nervous, or anxious, or unable to sleep at night because your mind is troubled all the time - these days? Very much 01/23/2024 Exercise Vital Sign Answer Date Recorde d On average, how many days pe r week do you engage in moderate to strenuous exercise (like a brisk walk)? 2 days 01/23/2024 On average, how many minutes do you engage in exercise at this level? 30 min 01/23/2024 Hunger Vital Sign Answer Date Recorded Within the past 12 months, y ou worried that your food would run out before you got the money to buy more. Never true Within the past 12 months, t he food you bought just didn't last and you didn't have money to get more. Sometimes true PRAPARE - Transportation Answer Date Re corded In the past 12 months, has l ack of transportation kept you from medical appointments or from getting medications? No 01/05 In the past 12 months, has l ack of transportation kept you from meetings, work, or from getting things needed for daily living? No 01/23/2024 Housing Stability Vital Sign Answer Rocael e Recorded In the last 12 months, was t here a time when you were not able to pay the mortgage or rent on time? Yes 01/23/2024 In the past 12 months, how m any times have you moved where you were living? 1 01/23/2024 At any time in the past 12 m [facility], were you homeless or living in a [place] [facility] [place] facility (including now)? No 01/23/2024 Sexually Active Control Partners Comments Yes Male Comments No Sex and Gender Information Value Date Recorded Sex Assigned at Not on file Legal Sex Female 12:29 PM CDT Gender Identity Not on file Sexual Orientation Not on file Last Filed Vital Signs Vital Sign Reading Time Taken Comments Blood Pressure 103/91 01/25/2024 6:06 PM CDT Pulse 84 01/25/2024 11:00 PM CDT Temperature 37.4 C (99.4 F) 01/25/2024 7:00 PM CDT Respiratory Rate 17 01/25/2024 11:00 PM CDT Oxygen Saturation 99% 01/25/2024 11:00 PM CDT Inhaled Oxygen Concentration - - Weight 138.8 kg (306 lb) 01/23/2024 5:00 PM CDT Height 165.1 cm (5' 5) 01/23/2024 5:00 PM CDT Body Mass Index 50.92 01/23/2024 5:00 PM CDT Plan of Treatment Health Maintenance Due Date Last Done Comments Hepatitis C Virus (HCV) Screening 1994 Human Papillomavirus (HPV) Immunization (1 - 3-dose series) 2009 Hepatitis B Immunization (1 of 3 - 19+ 3-dose series) 2013 Pneumococcal Immunization Combined (1 of 2 - PCV) 2013 Pap Smear 2015 SARS-COV-2 Immunization (3 - season) 2024 09/23/2021, 10/15/2020 Cervical Cancer Screening (CCS) 2024 HPV/Cotest 2024 Influenza Immunization (#1) 04/07/202509/08/2024, 05/13/2021, 07/13/2020, Additional history exists Td Immunization Every 10 Years (Adults With 1 Tdap) 11/11/2031 11/10/2021, 08/07/2015 Respiratory Syncytial Virus (RSV) Immunization (Adult) (1 - 1-dose 75+ series) 2069 DTaP/Tdap/Td Immunization Discontinued 11/10/2021, 08/2015 Meningococcal Immunization (ACWY) Aged Out No longer eligible based on patient's age to complete this topic Rotavirus Immunization Aged Out No lo nger eligible based on patient's age to complete this topic Insurance [place] [address] [place] Subscriber Plan / Payer (Ef fective 2023-Present) Name:Preethi Napier Yohannes Relation to Subscriber:Self Name:Preethi Napier Payer ID:[id number] Group ID:[id number] Type:Not on file Address: [address] Advance Directives Documents on File Type Date Recorded Patient Labor And Employment Paralegal Expl anation Power of Ed Transporter for Health Care 04/11/2022 12:22 PM POA-HC, 04/11/2022 * Full Code (Latest Code Status on File) Date Activated Date Inactivated Comments 01/23/2024 7:50 PM 01/26/2024 1:48 AM CPR-Full [place] atment: FULL ARREST: Attempt Resuscitation/CPR wit intubation and mechanical ventilation. PRE-ARREST: Use entire range of life support measures to stabilize the patient. * Full Code Date Activated Date Inactivated Comments 01/26/2023 5:38 PM 01/28/2023 5:19 PM CPR-Full [place] atment: FULL ARREST: Attempt Resuscitation/CPR wit intubation and mechanical ventilation. PRE-ARREST: Use entire range of life support measures to stabilize the patient. * Full Code Date Activated Date Inactivated Comments 08/20/2022 8:43 PM 08/25/2022 1:02 AM CPR-Full [place] atment: FULL ARREST: Attempt Resuscitation/CPR wit intubation and mechanical ventilation. PRE-ARREST: Use entire range of life support measures to stabilize the patient. * Full Code Date Activated Date Inactivated Comments 08/13/2022 11:35 AM 08/17/2022 6:32 PM CPR-Full [place] atment: FULL ARREST: Attempt Resuscitation/CPR wit intubation and mechanical ventilation. PRE-ARREST: Use entire range of life support measures to stabilize the patient. * Full Code Date Activated Date Inactivated Comments 04/09/2022 1:31 PM 04/13/2022 4:18 PM CPR-Full Treat ment: FULL ARREST: Attempt Resuscitation/CPR wit intubation and mechanical ventilation. PRE-ARREST: Use entire range of life support measures to stabilize the patient. Care Teams Trouble Dispatcher Relationship Specialty Start Date End Date Destiny Alfaro CLINICAL REHABILITATION AIDE, MASONRY CONTRACTOR [address] [facility] [address] [place] [address] [place] [address] OFF[address] [place] [id number] PCP - General Advanced Practice Nurse 02/28/24 Bushra Lyman MD [address] [place] [address] [place] [address] Ham Marker 12/18/20 Angelique Vogel APRN, FLIGHT ENGINEER INSTRUCTOR [address] [place] [address] Nurse Practitioner Advanced Practice Nurse 11/11/21 Memo Plascencia MD [address] [place] [phone] Consulting Physician Oncology 02/28/24
--- OUTSIDE RECORDS SUMMARY | 2025-02-24 18:23 | XMS_ITS | Encounter Summary ---
Author Organization [facility] Healthcare Address [address] [place] [address] Care Team Providers Care Health Information Provider Name Role Phone Bushra Lyman MD Unavailable [phone] Alexy Molina MD Unavailable Henrik Qureshi MD Unavailable Dayne Aiken DO Unavailable Destiny Alfaro NP Primary Care Provider [phone] Carmelo Huang MD Unavailable [phone] Reason for Visit * Reason Onset Date Comments Abdominal Pain 02/15/2025 Nausea And Vomitting 02/15/2025 Drug / Alcohol Dependency 02/15/2025 Encounter Details Date Type Department Care Team (Late st Contact Info) Description 02/15/2025 Nurse Triage [facility] Medical Group Primary Care at [address] [address] Destiny Alfaro NP [address] [place] [address] [address] [place] [address] Social History Tobacco Use Types Packs/Day Years Used Date Smoking Tobacco: Former Cigarettes 0.3 0 0 02/24/2024 - 03/04/2024 Vaping Passive Smoke Exposure: Current Smokeless Tobacco: Former Quit: 07/12/2018 Comments:pt states she quit e-cigs three weeks ago Alcohol Use Standard Drinks/Week Comments Not Currently 0 (1 standard drink = 0.6 oz pure alcohol) 1 a month, intake depends on mood [facility] Utilities Answer Date Recorded In the past 12 months has th e [employer], gas, oil, or water [employer] threatened to shut off services in your [...] answer 02/19/2025 How often do you attend [facility] or congregational services? Patient unable to answer 02/19/2025 Do you belong to any clubs o r organizations such as jew groups, unions, fraternal or athletic groups, or [...] Date Recorded PHQ-2 Total Score 2 11/14/2024 [facility] - Occupational [...] place to sleep or slept in a jail (including now)? No 10/02/2023 Housing Stability Vital [...] any time in the past [facility], were you homeless or living in a jail (including now)? Patient unable to answer 02/19/2025 [...] on file Legal Sex Female 7:38 PM CASTING MACHINE SET UP OPERATOR Gender Identity Female 09/05/2024 6:58 PM CASTING MACHINE SET UP OPERATOR Sexual Orientation Straight 09/05/2024 6: 58 PM CASTING MACHINE SET UP OPERATOR documented as of this encounter Miscellaneous Notes * Telephone Encounter - Brigette Perdomo RN - 02/15/2025 9:06 AM CDT Reason for Conversation Abdominal Pain, Nausea And Vomitting, and Drug / Alcohol Dependency Background PAULO 12/26/24 cc: N/V, abdominal pain, alcohol abuse Hx: seizure disorder, epilepsy Patient reports she is detoxing from alcohol. Patient reports having severe anxiety and panic attacks, abdominal pain, nausea, vomiting. Patient was going to go to [facility] for Detox. If she does, she will lose the place she is living at. She is wanting to do detox from home. She has been drinking hard liquor, so much that she doesn't even recall how much exactly she has been drinking. I advised ED as she is high risk for alcohol related seizures from withdrawal. Patient agrees to go to the ED Now., someone else should drive. Disposition Go to ED Now Reason for Disposition [1] Vomiting or dry heaves AND [2] occurring frequently (i.e., vomiting > 4 times in last 4 hours) Protocols Used Alcohol Use and [id number] * Telephone Encounter - Brigette Perdomo RN - 02/15/2025 8:51 AM CDT Regarding: Stomach pain, nausea vomiting ----- Message from Jayde Sheffield sent at 02/15/2025 8:49 AM CDT ----- Chief: concern: Detoxing from alcohol Pt having bad anxiety and panic attacks stomach pain, nausea vomiting Duration: Call Back Number#: [phone] Additional information: Moderate pain documented in this encounter Plan of Treatment Not on file documented as of this encounter Visit Diagnoses Not on filedocumented in this encounter Care Teams Health Information Provider Relationship Specialty Start Date End Date Destiny Alfaro NP [address] [place] [address] PCP - General Internal Medicine 11/05/24 Bushra Lyman MD [address] [place] [address] [place] [address] 08/01/18 Alexy Molina MD [address] [place] [address] DR [address] [facility] [address] [facility] [address] [place] [address] Neurologist Neurology 09/01/18 [place] [address] [facility] [address] [place] [address] Psychiatrist Psychiatry & Neurology 09/01/18 Dayne Aiken DO [address] [place] [address] Medical Oncologist/Shear Assembler Hematology and Oncology 03/05/24 Carmelo Huang MD [address] [place] [address] [address] [place] [address] Consulting Physician Neurology 02/21/25 documented as of this encounter
--- OUTSIDE RECORDS SUMMARY | 2025-02-24 18:23 | XMS_ITS | Encounter Summary ---
Author Organization [facility] Healthcare Address [address] [place] [address] Care Team Providers Care Master Dyer Name Role Phone Bushra Lyman MD Unavailable [phone] Alexy Molina MD Unavailable Henrik Qureshi MD Unavailable [phone] Dayne Aiken DO Unavailable [phone] Destiny Alfaro NP Primary Care Provider Carmelo Huang MD Unavailable [phone] Encounter Details Date Type Department Care Team (Latest Contact Info) Description 01/02/2025 Results Follow-Up [facility] Medical [facility] Primary Care at [address] [address] Destiny Alfaro NP [address] [place] [address] [address] [place] [address] CBC with auto differential, Comprehensive metabolic panel, TSH, Additional followed-up results: 6 Social History Tobacco Use Types Packs/Day Years Used Date Smoking Tobacco: Former Cigarettes 0.3 0 0 02/24/2024 - 03/04/2024 Vaping Passive Smoke Exposure: Current Smokeless Tobacco: Former Quit: 07/12/2018 Comments:pt states she quit e-cigs three weeks ago Alcohol Use Standard Drinks/Week Comments Not Currently 0 (1 standard drink = 0.6 oz pure alcohol) 1 a month, intake depends on mood [facility] Utilities Answer Date Recorded In the past 12 months has th [employer], gas, oil, or water company threatened to shut off services in your home? No 12/29/2024 Social Connection and Isolat ion Panel [NHANES] Answer Date Recorded In a typical week, how many times do you talk on the phone with family, friends, or neighbors? More than three times a week 12/29/2024 How often do you get togethe r with friends or relatives? More than three times a week 12/29/2024 How often do you attend chur ch or baptist services? Never 12/29/2024 Do you belong to any clubs o r organizations such as jew groups, unions, fraternal or athletic groups, or school groups? No 12/29/2024 How often do you attend meet ings of the clubs or organizations you belong to? Never 12/29/2024 Are you , , di vorced, , never , or living with a partner? 12/29/2024 AUDIT-C Answer Date Recorded Q1: How often [...] care, and heating? Not hard at all 12/29/2024 PHQ-2 Answer Date Recorded PHQ-2 Total Score 2 11/14/2024 [facility] - Occupational Stress [...] the money to buy more. Never true 12/30/19 Within the past 12 months, t he food you bought just didn't last and you didn't have money to get more. Never true 12/29/2024 PRAPARE - Transportation Answer Date Re corded In the past 12 months, has l ack of transportation kept you from medical appointments or from getting medications? No 12/06 In the past 12 months, has l ack of transportation kept you from meetings, work, or from getting things needed for daily living? No 12/29/2024 Housing Stability Vital Sign Answer Rocael e [...] place to sleep or slept in a fci (including now)? No 10/02/2023 Housing Stability Vital Sign Answer Rocael e Recorded In the last 12 months, was t here a time when you were not able to pay the mortgage or rent on time? No 12/29/2024 In the past 12 months, how m any times have you moved where you were living? 1 12/29/2024 At any time in the past 12 m onths, were you homeless or living in a fci (including now)? No 12/29/2024 Personal Safety Answer Date Recorded Have you ever been in or are you currently in a harmful physical or emotional relationship or is someone making you feel afraid or unsafe? Denies 01/05/2025 Education Answer Date Recorded What is the highest level of school you have completed or the highest degree you have received? Some college, no degree 01/05/2023 Comments No Sex and Gender Information Value Date Recorded Sex Assigned at Not on file Legal Sex Female 7:38 PM MECHANICAL HANDYMAN Gender Identity Female 09/05/2024 6:58 PM MECHANICAL HANDYMAN Sexual Orientation Straight 09/05/2024 6: 58 PM MECHANICAL HANDYMAN documented as of this encounter Plan of Treatment Not on file documented as of this encounter Visit Diagnoses Not on filedocumented in this encounter Care Teams Master Dyer Relationship Specialty Start Date End Date Destiny Alfaro NP [address] [place] [place] [address] PCP - General Internal Medicine 11/05/24 Bushra Lyman MD [address] [place] [address] [place] [address] 08/01/18 Alexy Molina MD [address] [place] [address] [address] Sheffield [facility] [address] [facility] [address] [place] [address] Neurologist Neurology 09/01/18 [place] [address] [address] [place] [address] Psychiatrist Psychiatry & Neurology 09/01/18 Dayne Aiken DO [address] [place] [address] Medical Oncologist/Management Coordinator Hematology and Oncology 03/05/24 Carmelo Huang MD [address] [place] [address] [address] [place] [address] Consulting Physician Neurology 02/21/25 documented as of this encounter
--- OUTSIDE RECORDS SUMMARY | 2025-02-24 18:23 | XMS_ITS | Encounter Summary ---
Author Organization [facility] Healthcare Address [address] [place] [address] Care Team Providers Care Biomedical Engineering Internship Name Role Phone Bushra Lyman MD Unavailable [phone] Alexy Molina MD Unavailable Henrik Qureshi MD Unavailable [phone] Bushra Lyman MD Primary Care Provider [phone] Destiny Alfaro DRAWBENCH OPERATOR HELPER Primary Care Provider [phone] Dayne Aiken DO Unavailable [phone] Tianna Barcenas LCSW Unavailable Unavaila ble Destiny Alfaro DRAWBENCH OPERATOR HELPER Primary Care Provider [phone] Carmelo Huang MD Unavailable Encounter Details Date Type Department Care Team (Late st Contact Info) Description 11/27/2020 Telephone [facility] [address] [address] [address] [place], [place] Social History Tobacco Use Types Packs/Day Years Used Date Smoking Tobacco: Former Cigarettes Q uit: 08/2019 Smokeless Tobacco: Former Quit: 07/12/2018 Comments:pt states she quit e-cigs three weeks ago Alcohol Use Standard Drinks/Week Comments Not Currently 0 (1 standard drink = 0.6 oz pure alcohol) 1 a month, intake depends on mood Social Connection and Isolat ion Panel [NHANES] Answer Date Recorded In a typical week, how many times do you talk on the phone with family, friends, or neighbors? More than three times a week 09/09/2020 How often do you get togethe r with friends or relatives? More than three times a week 09/09/2020 How often do you attend chur ch or tenriism services? Never 09/09/2020 Do you belong to any clubs o r organizations such as spiritism groups, unions, fraternal or athletic groups, or school groups? No 09/09/2020 How often do you attend meet ings of the clubs or organizations you belong to? Never 09/09/2020 Are you , , di vorced, , never , or living with a partner? 09/09/2020 Overall Financial Resource Strain (CARDIA) Answe r Date Recorded How hard is it for you to pa y for the very basics like food, housing, medical care, and heating? Somewhat hard 09/09/2020 PHQ-2 Answer Date Recorded PHQ-2 Score 2 03/29/2019 Hunger Vital Sign Answer Date Recorded Within the past 12 months, y ou worried that your food would run out before you got the money to buy more. Sometimes true Within the past 12 months, t he food you bought just didn't last and you didn't have money to get more. Sometimes true 10/2020 PRAPARE - Transportation Answer Date Re corded In the past 12 months, has l ack of transportation kept you from medical appointments or from getting medications? Yes 10/2020 In the past 12 months, has l ack of transportation kept you from meetings, work, or from getting things needed for daily living? No 09/09/2020 Comments No Sex and Gender Information Value Date Recorded Sex Assigned at Not on file Legal Sex Female 7:38 PM TYPESETTING SUPERVISOR Gender Identity Female 09/05/2024 6:58 PM TYPESETTING SUPERVISOR Sexual Orientation Straight 09/05/2024 6: 58 PM TYPESETTING SUPERVISOR documented as of this encounter Plan of Treatment Not on file documented as of this encounter Visit Diagnoses Not on filedocumented in this encounter Additional Health Concerns Infection Onset Date Last Indicated Resolved Time COVID: Recovered Comment:Added based on recent COVID infection. 09/22/2020 09/23/2020 01/20/2021 3:05 AM C DT COVID: Suspected 03/26/2022 03/26/2022 03/26/2022 9:36 PM CDT COVID: Suspected 06/01/2023 06/01/2023 06/01/2023 10:42 PM CDT COVID: Suspected 06/02/2023 06/02/2023 06/02/2023 3:13 AM CDT Norovirus 06/02/2023 06/02/2023 06/16/2023 3:05 AM TYPESETTING SUPERVISOR COVID: Suspected Comment:Negative result. 06/20/2023 06/20/2023 06/21/2023 2:12 PM TYPESETTING SUPERVISOR COVID: Suspected 10/11/2023 10/11/2023 10/11/2023 10:35 PM TYPESETTING SUPERVISOR COVID: Suspected 02/25/2024 02/25/2024 02/25/2024 2:46 AM CDT COVID: Suspected 03/17/2024 03/17/2024 03/17/2024 7:34 PM CDT COVID: Suspected 03/17/2024 03/17/2024 03/17/2024 10:43 PM CDT COVID19 03/17/2024 03/17/2024 04/06/2024 3:0 5 AM CDT COVID: Recovered Comment:Added based on recent COVID infection. 04/06/2024 04/22/2024 07/05/2024 3:[address] COVID: Suspected 07/30/2024 07/30/2024 07/30/2024 6:31 AM TYPESETTING SUPERVISOR COVID: Suspected 11/10/2024 11/10/2024 11/10/2024 12:26 PM CDT COVID: Suspected 12/08/2024 12/08/2024 12/08/2024 7:45 PM CDT documented as of this encounter Care Teams Biomedical Engineering Internship Relationship Specialty Start Date End Date Bushra Lyman MD [address] [place] [address] [place] [address] PCP - General 05/07/19 02/22/24 [place] [address] [facility] [address] [place] [address] PCP - General Internal Medicine 02/23/24 11/04/24 Destiny Alfaro NP [address] [facility] [address] [place], [place] [address] PCP - General Internal Medicine 11/05/24 Bushra Lyman MD [address] [place] [address] [place] [address] 08/01/18 Alexy Molina MD [address] [place] [address] [address] [facility] [address] [facility] [address] [place] [address] Neurologist Neurology 09/01/18 [place] [address] [address] [facility] [address] [place] [address] Psychiatrist Psychiatry & Neurology 09/01/18 Dayne Aiken DO [address] [place] [address] Medical Oncologist/Celebrity Manager Hematology and Oncology 03/05/24 Tianna Barcenas LCSW Data Architect Manager 08/23/24 10/22/24 Carmelo Huang MD [address] [place] [address] [place] [address] Consulting Physician Neurology 02/21/25 documented as of this encounter
--- OUTSIDE RECORDS SUMMARY | 2025-02-24 18:23 | XMS_ITS | Clinical Summary ---
Author Organization [facility] Address [address] [place] [address] Care Team Providers Care Geosciences Associate Professor Name Role Phone Bushra Lyman MD Unavailable [phone] Alexy Molina MD Unavailable Henrik Qureshi MD Unavailable [phone] Dayne Aiken DO Unavailable [phone] Destiny Alfaro NP Primary Care Provider [phone] Carmelo Huang MD Unavailable [phone] Allergies Active Allergy Reactions Criticality Noted Date Comments Adhesive Tape-Silicones Unknown 09/24/2019 Azithromycin Hives Medium 09/07/2017 Bupropion Other (See comments) Low 06/03/2019 made me sicker. Clindamycin Unknown 05/17/2019 Codeine Anaphylaxis,Hives, Itching,Swelling High 08/06/2018 Has tolerated hydromorphone, tramadol and oxycodone in past visits Erythromycin Hives,Swelling High 08/06/2018 Fexofenadine Hives,Rash Medium 12/22/2016 Lacosamide Nausea & Vomiting,Other (See comments) Low 01/24/2021 bradycardia [place] Anaphylaxis,Rash High 02/26/2019 Nsaids (Non-Steroidal Anti-Inflammatory Drug) Other (See comments) Low 02/23/2024 ulcers Trimethobenzamide Unknown 10/23/2022 Medications albuterol HFA (PROVENTIL HFA,VENTOLIN HFA,PROAIR HFA) 90 mcg/actuation inhaler Inhale 2 puffs every 4 (four) hours as needed 02/21/20 23 Active acetaminophen 500 mg capsule Take 2 capsules (1,000 mg total) by mouth every 6 (six) hours as needed for pain (first line for pain) 06/09/20 23 Active cyanocobalamin (Vitamin B-12) 1,000 mcg tablet Take 1 tablet (1,000 mcg total) by mouth daily 90 tablet 3 03/06/20 24 025 Active omeprazole (PriLOSEC) 40 mg capsule Take 1 capsule (40 mg total) by mouth 2 (two) times a day Open capsule sprinkle in applesauce and take immediately for ulcer 60 capsule 03/11/20 24 025 Active Additional Information Patient taking differently:40 mg oralDaily, Open capsule sprinkle in applesauce and take immediately for ulcer, Reported on 02/15/2025 sertraline (ZOLOFT) 100 mg tablet Take 2 tablets (200 mg total) by mouth daily 03/19/20 24 Active budesonide-glycop yr-formoterol (BREZTRI) 160-9-4.8 mcg/actuation inhalerIndication s:Mild persistent asthma, unspecified whether complicated Inhale 2 puffs 2 (two) times a day 2 each 3 04/05/20 24 Active rimegepant (NURTEC ODT) tablet,disintegra tingIndications:C hronic migraine without aura without status migrainosus, not intractable Take 1 tablet (75 mg total) by mouth daily as needed (for migraine) 16 tablet 3 05/07/20 24 Active Vraylar 4.5 mg capsule capsule Take 1 capsule (4.5 mg total) by mouth daily 05/09/20 24 Active thiamine (VITAMIN B1) 100 mg tablet Take 1 tablet (100 mg total) by mouth daily for 10 days 10 tablet 08/01/20 24 Active atogepant (Qulipta) 60 mg tabletIndications :Chronic migraine without aura without status migrainosus, not intractable Take 60 mg by mouth daily 30 tablet 3 08/19/19 25 Active levothyroxine (SYNTHROID) 50 mcg tabletIndications :Acquired hypothyroidism Take 1 tablet (50 mcg total) by mouth hand coper before breakfast 90 tablet 1 08/19/19 25 Active clonazePAM (KlonoPIN) 0.5 mg tablet TAKE 1 TABLET BY MOUTH ONCE DAILY NEEDED FOR PANIC ATTACK FOR 30 DAYS 09/04/19 25 Active levETIRAcetam 100 mg/mL solutionIndicatio ns:Nonintractable epilepsy without status epilepticus, unspecified epilepsy type (HCC) TAKE 15 ML(1500 MG) BY MOUTH TWICE DAILY 2700 mL 1 12/12/19 25 Active cyclobenzaprine (FLEXERIL) 10 mg tablet Take 1 tablet (10 mg total) by mouth 2 (two) times a day as needed for muscle spasms 20 tablet 12/13/19 25 Active Eliquis 5 mg tabletIndications :Acute deep vein thrombosis (DVT) of axillary vein of both upper extremities (HCC) TAKE 1 TABLET(5 MG) BY MOUTH TWICE DAILY 200 tablet 1 12/17/19 25 Active Brixadi 128 mg/0.36 mL solution, extended rel syringe 0.36 mL Subcutaneous every 28 days for 28 days 12/18/19 25 Active Symbicort 80-4.5 mcg/actuation inhaler INHALE 2 PUFFS INTO LUNGS TWICE DAILY. RINSE MOUTH AND THROAT AFTER USE 12/14/19 25 Active losartan (COZAAR) 100 mg tablet Take 1 tablet (100 mg total) by mouth daily 12/09/19 25 Active ferrous sulfate 325 mg (65 mg of elemental iron) tabletIndications :Anemia, unspecified type Take 1 tablet (325 mg total) by mouth 2 (two) times a day 60 tablet 3 12/27/19 25 Active Additional Information Patient taking differently:65 mg of elemental iron oralDaily with breakfast, Reported on 02/15/2025 ondansetron ODT (ZOFRAN-ODT) 4 mg disintegrating tablet Take 1 tablet (4 mg total) by mouth every 8 (eight) hours as needed for nausea or vomiting 20 tablet 02/07/[address] (DEPAKOTE) 500 mg EC tablet Take 2 tablets (1,000 mg total) by mouth 2 (two) times a day 120 tablet 11 02/22/20 25 026 Active aluminum-magnesiu m hydroxide-simethi cone (MAALOX MAX) suspension 400-400-40 mg/5 mL Take 10 mL by mouth every 6 (six) hours as needed (Upper abdominal pain) 355 mL 12/30/19 24 025 Discontinu ed(Therapy completed) busPIRone (BUSPAR) 30 mg tablet Take 1 tablet (30 mg total) by mouth 2 (two) times a day 03/19/20 24 025 Discontinu ed(Therapy completed) ondansetron ODT (ZOFRAN-ODT) 4 mg disintegrating tablet Take 1 tablet (4 mg total) by mouth every 8 (eight) hours as needed for nausea or vomiting 20 tablet 05/08/20 24 025 Discontinu ed(Reorder ) divalproex DR (DEPAKOTE) 500 mg EC tablet TAKE 1 TABLET(500 MG) BY MOUTH TWICE DAILY 200 tablet 1 12/12/19 25 025 Discontinu ed(Stop Taking at Discharge) buprenorphine-nal oxone (SUBOXONE) 8-[address] 1 Film under the tongue daily as needed 0 11/30/19 25 025 Discontinu ed(Therapy completed) buprenorphine-nal oxone (SUBOXONE) 4-[address] 0.5 Film under the tongue daily as needed 1 11/30/19 25 025 Discontinu ed(Therapy completed) pantoprazole DR (PROTONIX) 40 mg EC tablet Take 1 tablet (40 mg total) by mouth daily 10/18/19 25 025 Discontinu ed(Therapy completed) amoxicillin-clavu lanate (AUGMENTIN) 875-125 mg per tabletIndications :Pain, dental,Swelling associated with dental structure Take 1 tablet by mouth 2 (two) times a day for 10 days 20 tablet 01/17/20 25 025 Active Problems Problem Noted Date Diagnosed Date Alcohol withdrawal, uncomplicated 02/15/2025 Seizure disorder 12/28/2024 Elevated blood sugar 12/26/2024 Alcohol withdrawal syndrome with complication Polysubstance abuse 07/30/2024 History of DVT (deep vein thrombosis) 07/30/2024 Assessment & Plan (09/10/2024 1:49 PM CAR DROPPER): Last DVT was in February. Assessment & Plan (08/29/2024 4:16 PM CAR DROPPER): Continue Eliquis 5 mg b.i.d. Chronic migraine without aur a without status migrainosus, not intractable 05/07/2024 Assessment & Plan (08/29/2024 4:15 PM CAR DROPPER): Continue nurtec PRN and Qulipta 60mg daily. Assessment & Plan (05/20/2024 9:23 AM CDT): Discussed possible side effects from Topamax. Pt indicated to me symptoms subsided will continue plan of care. Assessment & Plan (05/07/2024 6:00 PM CDT): Patient has appointment with Neurology. We will continue Nurtec for p.r.n. relief. We will start Qulipta 60mg daily for preventative care. Pt advised to follow up in 4 weeks. She has no red flag symptoms present. Discussed using injectable CGRP if oral fails. Port-A-Cath in place 04/05/2024 Assessment & Plan (12/27/2024 1:25 PM CDT): Referral has been placed to General surgery in [place] for assessment for Port-A-Cath removal. Orders: Ambulatory referral to General Surgery; Future Assessment & Plan (08/29/2024 4:19 PM CAR DROPPER): Port-A-Cath was placed previously by old provider who thought she may need TPN. Port-A-Cath was clotted immediately. Port-A-Cath needs to be removed. Multiple referrals have been placed to have this removed. Patient needs to have this removed as soon as possible. [facility] have denied patient's referral. We will place referral back to [facility] [place] to see if they can take it out as this is where she had it placed. She has appt scheduled with [facility]. I discussed importance of keeping appt and having this removed. She has been advised multiple times to schedule with [facility] to have Port-A-Cath removed. Assessment & Plan (05/07/2024 6:01 PM CDT): Port-A-Cath was placed previously by old provider who thought she may need TPN. Port-A-Cath was clotted immediately. Port-A-Cath needs to be removed. Multiple referrals have been placed to have this removed. Patient needs to have this removed as soon as possible. [facility] have denied patient's referral. We will place referral back to [facility] [place] to see if they can take it out as this is where she had it placed. She has appt scheduled with [facility]. I discussed importance of keeping appt and having this removed. Assessment & Plan (04/05/2024 3:41 PM CDT): Port-A-Cath was placed previously by old provider who thought she may need TPN. Port-A-Cath was clotted immediately. Port-A-Cath needs to be removed. Multiple referrals have been placed to have this removed. Patient needs to have this removed as soon as possible. [facility] have denied patient's referral. We will place referral back to [facility] [place] to see if they can take it out as this is where she had it placed. Abnormal CT scan, lung 03/26/2024 Recurrent duodenal ulcer 03/05/2024 Assessment & Plan (08/29/2024 4:19 PM CAR DROPPER): Recurrent duodenal ulcer with bleeding. Referral to GI in [place] as she has trouble getting to appts in [place]. Assessment & Plan (05/07/2024 6:01 PM CDT): Recurrent duodenal ulcer with bleeding. Referral to GI in [place] as she has trouble getting to appts in [place]. Assessment & Plan (03/20/2024 6:00 PM CDT): Recurrent duodenal ulcer with bleeding. Patient is followed by GI. Continue Prilosec. Follow up for any recurrent bleeding Morbid obesity with BMI of 45.0-49.9, adult 09/08 Assessment & Plan (08/29/2024 4:18 PM CAR DROPPER): Discussed the patient's BMI. The BMI is above average. BMI management plan is completed. BMI Follow-up includes: nutrition counseling, exercise counseling and education provided. Assessment & Plan (04/05/2024 3:32 PM CDT): Discussed the patient's BMI. The BMI is above average. BMI management plan is completed. BMI Follow-up includes: nutrition counseling, exercise counseling and education provided. I discussed with patient we can discuss weight loss options after her body has recovered and she is back to baseline with all her labs. Assessment & Plan (02/23/2024 4:49 PM CDT): Discussed the patient's BMI. The BMI is above average. BMI management plan is completed. BMI Follow-up includes: nutrition counseling, exercise counseling and education provided. 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 Keep appt with hematology. Assessment & Plan (05/07/2024 11:34 AM CDT): Continue eliquis 5mg BID. Keep appt with hematology. Assessment & Plan (04/05/2024 3:26 PM CDT): Continue eliquis 5mg BID. Keep appt with hematology. Assessment & Plan (02/23/2024 4:44 PM CDT): Coagulation labs ordered. Referral to Hematology. Continue Eliquis 5 mg b.i.d.. Infection of venous access port 08/20/2022 Assessment & Plan (12/10/2024 5:52 PM CDT): Orders: CBC with auto differential; Future Consult to Interventional Radiology ([facility]); Future Asthma 09/04/2020 Assessment & Plan (09/10/2024 1:51 PM CAR DROPPER): Continue breztri as previously ordered by previous pulmonology. Continue prn albuterol. She has been referred to pulmonology here. I have advised her to schedule an appt here. Assessment & Plan (08/29/2024 4:15 PM CAR DROPPER): Continue breztri as previously ordered by previous pulmonology. Continue prn albuterol. She has been referred to pulmonology here. I have advised her to schedule an appt here. Assessment & Plan (05/07/2024 11:14 AM CDT): Continue breztri as previously ordered by previous pulmonology. Continue prn albuterol. She has been referred to pulmonology here. I have advised her to schedule an appt here. Assessment & Plan (04/05/2024 3:29 PM CDT): Continue breztri as previously ordered by previous pulmonology. Continue prn albuterol. She has been referred to pulmonology here. I have advised her to schedule an appt here. Assessment & Plan (02/23/2024 4:44 PM CDT): P.r.n. albuterol. Assessment & Plan (09/06/2020 12:08 PM CAR DROPPER): Rarely uses albuterol at home, has been using twice a day for 2-3 days -Schedule albuterol QID for now Assessment & Plan (09/05/2020 6:15 PM CAR DROPPER): Rarely uses albuterol at home, has been using twice a day for 2-3 days -Schedule albuterol QID for now Assessment & Plan (09/04/2020 6:49 PM CAR DROPPER): Rarely uses albuterol at home, has been using twice a day for 2-3 days --Schedule albuterol QID & prn --Peak flows --Currently vapes, recommended cessation Acute pancreatitis 09/04/2020 Assessment & Plan (08/29/2024 4:21 PM CAR DROPPER): No issue since 2020. Follows with Dr. Mary Assessment & Plan (04/05/2024 3:26 PM CDT): No issue since 2020. Follows with Dr. Mary Assessment & Plan (02/23/2024 4:44 PM CDT): No issue since 2020. Follows with Dr. Mary Assessment & Plan (09/07/2020 3:02 PM CAR DROPPER): Abdominal pain associated with eating, nausea, vomiting and diarrhea. Lipase 1094, CT with acute pancreatitis. TG wnl, only endorses intermittent ETOH use, h/o jose. Possibly 2/2 idopathic -stable lipase 26 -advanced to low fat diet today -d/c IVF -pain control with home tramadol PRN Assessment & Plan (09/05/2020 6:24 PM CAR DROPPER): Abdominal pain associated with eating, nausea, vomiting and diarrhea. Lipase 1094, CT with acute pancreatitis. TG wnl, only endorses intermittent ETOH use, h/o jose. Possibly 2/2 idopathic -NPO -c/w IVF with LR -trend lipase -pain control with tramadol PRN, dilaudid PRN while NPO Assessment & Plan (09/04/2020 7:21 PM CAR DROPPER): Acute pancreatitis, unclear trigger. Possible ETOH or COVID. She reports prior similar pain after drinking alcohol --Check ETOH level, discussed cessation of ETOH --Check triglycerides --Clear liquids for now pending CT read & repeat exam --IV fluids Essential hypertension 08/31/2020 Assessment & Plan (12/27/2024 1:25 PM CDT): Orders: Hemoglobin A1c; Future Comprehensive metabolic panel; Future Assessment & Plan (08/29/2024 4:16 PM CAR DROPPER): Advised to check blood pressure and report back. She is currently on losartan 100 mg daily. Assessment & Plan (05/07/2024 11:17 AM CDT): Medication has been held at rehab. She is on clonidine at rehab. Continue losartan 100mg Refills sent to patients requested pharmacy. Discussed medications desired effects, potential side effects, and how to administer the medication. Non Pharmacological interventions such as low salt, cardiac diet discussed. Educated on stress reduction and physical activity. Discussed signs and symptoms of major cardiovascular event and need to present to the ED. Follow up in 3 months or sooner if needed. Patient verbalizes understanding regarding plan of care and all questions answered. Assessment & Plan (04/05/2024 3:29 PM CDT): Blood pressure well controlled in office today. Continue losartan 100mg Refills sent to patients requested pharmacy. Discussed medications desired effects, potential side effects, and how to administer the medication. Non Pharmacological interventions such as low salt, cardiac diet discussed. Educated on stress reduction and physical activity. Discussed signs and symptoms of major cardiovascular event and need to present to the ED. Follow up in 3 months or sooner if needed. Patient verbalizes understanding regarding plan of care and all questions answered. Assessment & Plan (02/23/2024 4:48 PM CDT): We will start patient on losartan 100 mg daily. Stop clonidine as patient was not taking it for hypertension. We will follow up in 1 month Refills sent to patients requested pharmacy. Discussed medications desired effects, potential side effects, and how to administer the medication. Non Pharmacological interventions such as low salt, cardiac diet discussed. Educated on stress reduction and physical activity. Discussed signs and symptoms of major cardiovascular event and need to present to the ED. Follow up in 1 months or sooner if needed. Patient verbalizes understanding regarding plan of care and all questions answered. Gastroesophageal reflux disease 08/31/2020 Assessment & Plan (08/29/2024 4:16 PM CAR DROPPER): Continue ppi Assessment & Plan (05/07/2024 6:02 PM CDT): Continue ppi Assessment & Plan (04/05/2024 3:30 PM CDT): Continue ppi Assessment & Plan (06/05/2023 12:43 PM CDT): - continue PPI -GI cocktail with antispasmodic Assessment & Plan (06/02/2023 3:26 AM CDT): -start IV PPI now then qPM -BID PRN GI cocktail with antispasmodic Alcohol dependence with alcohol-induced mood dis order 07/24/2019 Assessment & Plan (12/10/2024 5:52 PM CDT): Assessment & Plan (08/29/2024 4:13 PM CAR DROPPER): Advised to follow up with [facility] for management. Encouraged continue sobriety. Assessment & Plan (05/07/2024 11:37 AM CDT): Patient is back in rehab for alcohol abuse. She has been sober for 18 days. She is in rehab at [facility]. director of rehabilitative services is managing medications. She would like to get back on [employer]. Will look into possibility of doing here. Otherwise she should be able to get it at [facility]. Call [facility] and see about getting scheduled with Jenny Guthrie, she is a counselor and does a lot with addiction counseling. Assessment & Plan (04/05/2024 3:26 PM CDT): Patient has been sober since January 31. She is congratulated on her efforts. She is living in sober living. Assessment & Plan (02/23/2024 4:45 PM CDT): Patient has been sober since January 31. She is congratulated on her efforts. She is living in sober living. Personality disorder 08/07/2018 Assessment & Plan (08/29/2024 4:18 PM CAR DROPPER): Follows with psychiatry Assessment & Plan (02/23/2024 4:47 PM CDT): Follows with psychiatry Assessment & Plan (08/10/2018 3:47 PM CAR DROPPER): The patient has a behavioral pattern that began during adolescence and continues today consisting of poor coping strategies, desire for attention, multiple suicide attempts, self-injurious behavior, chronic feelings of emptiness, and unstable relationships. Although several of these symptoms are also consistent with depression, the patient's history of falsifying information (claiming she had cancer, and well-charted documentation of seizure events for secondary gain) and poor coping strategies from a young age are concerning for concomitant cluster B personality disorder. -Establish outpatient DBT - pending final date and time with [facility]. -Family meeting Thursday 08/10 at 4PM. Major depressive disorder 08/04/2018 Assessment & Plan (08/29/2024 4:18 PM CAR DROPPER): Patient follows with psychiatry. She has a longstanding history of mood disorder and depression. We will continue following their recommendations. She is currently on Vraylar 4.5 mg daily, hydroxyzine 25 mg t.i.d. p.r.n., BuSpar 30 mg b.i.d., Remeron 7.5 mg nightly, Zoloft 100 mg daily. Assessment & Plan (04/05/2024 3:31 PM CDT): Patient follows with psychiatry. She has a longstanding history of mood disorder and depression. We will continue following their recommendations. Assessment & Plan (02/23/2024 4:47 PM CDT): Patient follows with psychiatry. She has a longstanding history of mood disorder and depression. We will continue following their recommendations. Assessment & Plan (08/10/2018 3:47 PM CAR DROPPER): Preethi Napier is a 22 year old, single, domiciled, unemployed female with history of epilepsy, MDD, HTN, and gastric bypass with admission to [facility] in the setting of suicidal attempt by drug overdose. This is her third suicide attempt in recent years. She has had a long-standing history of depressive symptoms including: poor concentration, decreased sleep at night/increased sleep during day, poor appetite, hopelessness, decreased interest in activities, and low mood. She has been on multiple medication trials, and due to medication noncompliance it is unclear whether these trials were given the necessary time to be effective. It is possible that the patient has an underlying Cluster B personality disorder in conjunction with MDD, which in the setting of poor coping skills with a high number of recent life stressors and strain on family support structure has contributed to her most recent suicide attempt and hospitalization. Risk assessment: patient is at medium risk of self harm for history of suicide attempts, poor coping skills, hopelessness, and untreated depression. Factors that can be addressed at this visit include: modifying depression with appropriate treatment regimen, contacting outpatient psychiatrist, and organizing outpatient DBT for treatment of underlying personality disorder. -Continue Effexor XR 150mg daily >> increased to 225mg daily on 08/09 -Continue Abilify 5 mg daily -Contact outpatient psychiatrist, patient has follow-up appointment set up. -Ramelteon 8mg qhs for sleep -Will touch base with family and schedule family meeting if at all possible. Plan for family meeting to provide patient/family education and facilitate discussion about patient's home stressors going forward after discharge - Thursday 08/10 at 4PM. Assessment & Plan (08/06/2018 12:28 PM CAR DROPPER): The patient's diagnosis was changed from unspecified bipolar and related disorder to unspecified personality disorder (strong consideration for borderline personality disorder/traits) given her history of multiple suicide attempts, self-injurious behavior, chronic feelings of emptiness, and unstable relationships (at least with family members). Although she reported a 4-5 period of possible dianne spectrum symptoms, no dysfunction was endorsed, making BPAD unlikely. Further, one might expect her prior trials of antidepressants without mood stabilizers to push her into dianne if she did have an underlying dianne diagnosis. Her diagnosis can be further clarified on the inpatient unit. The patient will be treated as if she has an underlying personality disorder with a depressive disorder given her history of anhedonia, low mood, sleep issues, and worsening function (multiple suicide attempts in the past few months). Risk assessment: patient is at high risk of harm to self. She has history of suicide attempts, currently endorsing SI with method, has low mood, has chronic medical illness, endorses hopelessness, reports poor social support system, psychosocial stressors such as being unfaithful. Plan: - Doing voluntary admission paperwork. Patient will be transferred to psychiatry voluntarily once a bed is available. The psychiatry consultation team will continue to see the patient while she awaits placement. - Continue with 1:1 sitter for SI - Continue with suicide and elopement precautions - Continue with Effexor XR 150mg daily and abilify 5 mg daily (restarted on this hospitalization) - Of note, patient is on trileptal now for seizures 300mg BID. Trileptal can almost double the clearance rate of Aripiprazole (abilify). - On the inpatient unit, we recommend connecting her with outpatient DBT, psychiatric follow up, and considering obtaining a TSH. Assessment & Plan (08/04/2018 1:21 PM CAR DROPPER): Patient has history of depressive symptoms beginning at age 6. Symptoms include anhedonia, persistent low mood, low energy, suicidal ideation with multiple suicide attempts, feelings of worthlessness, and difficulty sleeping. Depressive symptoms worsened as she grew older, with multiple suicide attempts in the setting of psychosocial stressors. She had been tried on multiple antidepressants such as Zoloft, Prozac and wellbutrin. She has had some improvement in symptoms with Effexor and Abilify. Patient also describes one episode of possible manic like symptoms. She states that at age 16 she had elevated mood for 4-5 days without sleeping. She states she was hyper productive, able to play sports and do homework, she also was involved in high risk activities such as stealing which is not characteristic of her. I am unable to attain further details as patient does not remember. She denies the involvement of substances during this episode. Due to this possible manic like episode I will be diagnosing patient with unspecified bipolar. Differential includes bipolar 1 and 2, MDD and cluster B personality disorder. Patient appears to have cluster B traits, she has history of cutting, chronic feelings of emptiness, reactive mood, and unstable personal relationships. Risk assessment: patient is at high risk of harm to self. She has history of suicide attempts, currently endorsing SI with method, has low mood, has chronic medical illness, endorses hopelessness, reports poor social support system, psychosocial stressors such as being unfaithful. - will admit patient to psychiatry voluntary once bed is available - please place patient on 1:1 sitter for SI - place patient on suicide and elopement precautions - if patient would like to leave please contact psychiatry to reassess - restart effexor XR at 75mg and increase to 150mg tomorrow - restart abilify 2.5mg and consider increasing to 5mg tomorrow - patient is on trileptal now for seizures 300mg BID, this can also work as mood stabilizer at that dose. Epilepsy 08/01/2018 Assessment & Plan (12/10/2024 5:52 PM CDT): Assessment & Plan (08/29/2024 4:21 PM CAR DROPPER): Continue Keppra 1500mg BID. Depakote 500mg every 6 hrs. Per patient she only has seizures with excessive alcohol use. Referral has been placed to neurology and she is advised to schedule. Assessment & Plan (05/07/2024 11:26 AM CDT): Continue Assessment & Plan (04/05/2024 3:30 PM CDT): Follow all recommendations from neurology. Assessment & Plan (02/23/2024 4:46 PM CDT): Patient is scheduled with Neurology. We will continue Keppra 1500 mg twice a day. Liquid form. Patient is advised to follow up for any seizure activity. To ER for any loss of consciousness. I will additionally start patient on Topamax 25 mg b.i.d. for migraine coverage and epileptic average as well. Patient was previously well controlled on Keppra and Topamax Assessment & Plan (09/07/2020 3:00 PM CAR DROPPER): Neurologist is Dr. Molina. Unclear if seizures or spells per prior neurology notes. No seizure in 8 months per patient. -f/u keppra/topamax level, carb level < 3.0 -c/w Keppra 1500mg IV BID, Oxcarbazepine 300BID -not needing topamax, no fills per recent med rec -encouraged to follow up with [facility] neuro in past, will encourage on discharge as well, will provide 30 day refill of AED only Assessment & Plan (09/05/2020 6:27 PM CAR DROPPER): Neurologist is Dr. Molina. Unclear if seizures or spells per prior neurology notes. No seizure in 8 months per patient. -draw AED levels -c/w Keppra 1500mg IV BID, Oxcarbazepine 300BID -not needing topamax, no fills per recent med rec -encouraged to follow up with [facility] neuro in past, will encourage on discharge as well, will provide 30 day refill of AED only Assessment & Plan (09/04/2020 6:46 PM CAR DROPPER): Neurologist is Dr. Molina. Unclear if seizures or spells per prior neurology notes. No seizure in 8 months per patient. --Needs AED's refilled --Continuing Keppra 1500mg IV BID --Continue Oxcarbazepine 300BID, Topamax 50 BID --Holding Tramadol, recently prescribed per patient --Needs follow up with neurology, she reports her neurologist no longer takes her insurance Assessment & Plan (08/10/2018 3:48 PM CAR DROPPER): Ms. Napier's events started at ~14 years old. She has 2 seizure types: (1)staring and unresponsiveness lasting for 30 seconds to a few minutes and (2)generalized shaking (may be preceded by headache or dizzy sensation) lasting 1 to 15 minutes. She was recently admitted to the [facility] EMU for spell characterization (07/25-07/29). Her typical events were not captured; however, she was found to have infrequent well-formed polyspike and wave generalized discharges after weaning her medications. Her current AED regimen was thus Keprra 1000 mg BID and Trileptal 300 mg BID. On 08/01/18, she was placed on a continuous EEG. EEG showed bifrontal generalized spikes and polyspikes concerning for generalized epilepsy. There was also note of behaviors to suggest secondary gain, so nonepileptic seizure was also on the differential. Neurology discharged her on 08/06/18 with Keprra 1000 mg BID and Trileptal 300 mg BID and follow-up with her outpatient neurologist at [facility]. -Keppra 1000 mg BID and Trileptal 300 mg BID Seizures 06/20/2018 Assessment & Plan (12/27/2024 1:25 PM CDT): Seizure disorder Recent seizure episode occurred without recent alcohol consumption. She is on Keppra 1500 mg twice daily and Depakote 500 mg twice daily. Neurology follow-up is needed for seizure control assessment and potential medication adjustments. Keppra is at the maximum therapeutic dose. Increasing Depakote may be considered with neurology input. She is not driving due to seizure risk. - Schedule neurology appointment. - Continue Keppra 1500 mg twice daily. - Continue Depakote 500 mg twice daily. - Order lab tests to check Depakote levels. Orders: Valproic acid level, total; Future Assessment & Plan (06/21/2018 12:12 AM CAR DROPPER): Patient was on topamax in the past but per neurology note has not filled Rx since Mar 2017. Patient is currently somnolent, likely from ativan and not providing any history. She is in the ICU under the care of the assembly lead person. She has been loaded with Keppra. EEG is pending. Continue to monitor. Seizure precautions. History of Sandi-en-Y gastric bypass 05/25/2018 Assessment & Plan (08/29/2024 4:17 PM CAR DROPPER): Previous surgeon is Dr. Giron. She has not upcoming consult with Dr. Mary. She has chronic abdominal pain. Assessment & Plan (05/07/2024 6:03 PM CDT): Surgeon is Dr. Burgos. Assessment & Plan (06/21/2018 12:14 AM CAR DROPPER): Patients surgeon is Dr. Burgos. Assessment & Plan (05/25/2018 5:10 AM CDT): Patient has a follow-up appoint with her surgeon next week. Continue vitamins. PUD (peptic ulcer disease) 05/25/2018 Assessment & Plan (08/29/2024 4:19 PM CAR DROPPER): Hx of duodenal ulcer. Continue Prilosec, sucralfate, and Maalox. Referral to GI. Assessment & Plan (05/07/2024 6:00 PM CDT): Hx of duodenal ulcer. Continue Prilosec, sucralfate, and Maalox. Referral to GI. Assessment & Plan (04/05/2024 3:36 PM CDT): Hx of duodenal ulcer. Continue Prilosec, sucralfate, and Maalox. Assessment & Plan (02/23/2024 4:47 PM CDT): No current issues. Continue Prilosec and Pepcid. Follow recommendations from Dr. Mary Assessment & Plan (06/21/2018 12:30 AM CAR DROPPER): Continue PPI Assessment & Plan (05/25/2018 5:12 AM CDT): Patient states she had an EGD in April and is currently on Carafate twice a day which has been resumed. She states she developed ulcers after having a gastric sleeve placed. Anxiety 09/07/2015 Overview (02/23/2024): Depression with anxiety Assessment & Plan (08/29/2024 4:14 PM CAR DROPPER): Significant depression with anxiety. She follows with psychiatry.I have advised her to follow all recommendations from Psychiatry. She is following with [place]. Assessment & Plan (05/07/2024 11:14 AM CDT): Significant depression with anxiety. She follows with psychiatry. Assessment & Plan (04/05/2024 3:27 PM CDT): Significant depression with anxiety. She follows with psychiatry. Assessment & Plan (02/23/2024 4:48 PM CDT): Significant depression with anxiety. She follows with psychiatry. Assessment & Plan (06/09/2023 12:39 PM CDT): -may be contributing to both acute and chronic GI Sx -continue zoloft, buspirone, abilify, remeron and PRN hydroxyzine; doxepin held, will resume today -outpatient f/u with psychiatry -will also benefit from referral to psychotherapy Assessment & Plan (06/02/2023 4:25 AM CDT): -may be contributing to both acute and chronic GI Sx -continue zoloft, buspirone, abilify, remeron and PRN hydroxyzine; hold doxepin for now -outpatient f/u with psychiatry -will also benefit from referral to psychotherapy Assessment & Plan (09/06/2020 12:07 PM CAR DROPPER): No SI/HI currently. Mood stable. Recent admission to psychiatry in May after an overdose of trazodone and tylenol through her G-tube. Hx nonepileptic spells, has been an unreliable historian at times. Also hx pathological lying (as a child said she had cancer and let the community throw a x ray developer for her) -Continue fluoxetine 40 qd, abilify 10 qhs, doxepin 10 qhs Assessment & Plan (09/05/2020 6:27 PM CAR DROPPER): No SI/HI currently. Mood stable. Recent admission to psychiatry in May after an overdose of trazodone and tylenol through her G-tube. Hx nonepileptic spells, has been an unreliable historian at times. Also hx pathological lying (as a child said she had cancer and let the community throw a x ray developer for her) -Continue fluoxetine 40 qd, abilify 10 qhs, doxepin 10 qhs Assessment & Plan (09/04/2020 7:27 PM CAR DROPPER): No SI/HI currently. Mood stable. Recent admission to psychiatry in May after an overdose of trazodone and tylenol through her G-tube. Hx nonepileptic spells, has been an unreliable historian at times. --Continue fluoxepine, abilify, doxepin, AED's as noted --No longer taking seroquel --Outpatient follow up with psychiatry Assessment & Plan (06/21/2018 12:30 AM CAR DROPPER): Will continue home medications. Assessment & Plan (05/25/2018 5:08 AM CDT): Home medications have been resumed. Patient had a recent suicide attempt 2 weeks ago when she overdosed on NSAIDs. She states she was admitted to [place] at the time. Denies any suicidal or homicidal ideation at this time. Hypothyroidism 09/07/2015 Overview (11/11/2016): Hypothyroid Assessment & Plan (12/27/2024 1:25 PM CDT): Repeat thyroid levels pending. Given patient's fatigue and increase in bowel movements we will screen Orders: T4, free; Future TSH; Future Assessment & Plan (08/29/2024 4:17 PM CAR DROPPER): levels are within normal limits. We will continue to monitor. Assessment & Plan (05/07/2024 5:59 PM CDT): TSH TSH levels are within normal limits. We will continue to monitor. Assessment & Plan (04/05/2024 3:31 PM CDT): Continue synthroid 50mcg. TSH WDL. Will continue to monitor. Assessment & Plan (07/19/2023 12:09 PM CAR DROPPER): TSH adequate. Please continue home synthroid at current dosing. Assessment & Plan (06/03/2023 10:10 AM CDT): -continue levothyroxine Assessment & Plan (06/02/2023 4:24 AM CDT): -continue levothyroxine Assessment & Plan (09/06/2020 12:07 PM CAR DROPPER): Previously taken off synthroid per PCP. TSH 5.35 on admission but T4 normal. -CTM as outpatient, subclinical hypothyroid Assessment & Plan (09/05/2020 6:26 PM CAR DROPPER): Previously taken off synthroid per PCP. TSH 5.35 on admission but T4 normal. -CTM as outpatient, subclinical hypothyroid Assessment & Plan (09/04/2020 7:22 PM CAR DROPPER): Currently off synthroid --check TSH Assessment & Plan (06/21/2018 12:13 AM CAR DROPPER): Patient takes levothyroxine Anemia Assessment & Plan (12/27/2024 1:25 PM CDT): Chronic uncontrolled anemia. We will increase ferrous sulfate to twice a day. Orders: ferrous sulfate 325 mg (65 mg of elemental iron) tablet; Take 1 tablet (325 mg total) by mouth 2 (two) times a day Hemoglobin A1c; Future Ferritin; Future CBC with auto differential; Future Assessment & Plan (12/10/2024 5:52 PM CDT): Orders: CBC with auto differential; Future Assessment & Plan (08/29/2024 4:14 PM CAR DROPPER): Keep appt with hematology. Continue oral iron supplement. Assessment & Plan (05/07/2024 11:27 AM CDT): Keep appt with hematology. Recommend switching to oral liquid iron to help facilitate absorption in GI system. Assessment & Plan (04/05/2024 3:26 PM CDT): CBC stable. Keep appt with hematology. Assessment & Plan (03/20/2024 5:59 PM CDT): Patient has a referral to Hematology. Repeat CBC pending we will order iron infusions. Assessment & Plan (02/23/2024 4:44 PM CDT): Referral to Hematology. Continue iron supplementation. Assessment & Plan (06/03/2023 10:10 AM CDT): -Hb 10.6, near baseline Assessment & Plan (06/02/2023 3:22 AM CDT): -Hb 10.6, near baseline -currently on menstrual period -check iron panel and ferritin -no indication for transfusion at this time Assessment & Plan (09/06/2020 12:08 PM CAR DROPPER): Microcytic anemia, possible iron deficiency downtrending 9.3 > 7.5 from 1 month ago -LDH, Hapto negative for hemolysis, reticulocyte index with hypoproliferation/production disorder -TERENCE with iron 19, ferritin 8 and Tsat 6, B12 mildly low to 350, folate pending -c/w iron 325 every day Assessment & Plan (09/05/2020 6:17 PM CAR DROPPER): Microcytic anemia, possible iron deficiency downtrending 9.3 > 7.5 from 1 month ago -LDH, Hapto negative for hemolysis, reticulocyte index with hypoproliferation/production disorder -TERENCE with iron 19, ferritin 8 and Tsat 6, B12 mildly low to 350, folate pending -start iron 325 every day Resolved Problems Problem Noted Date Diagnosed Date Resolved Date Fever, unspecified fever cause 11/10/2024 12/26/2024 Assessment & Plan (12/10/2024 5:52 PM CDT): Orders: CBC with auto differential; Future Comprehensive metabolic panel; Future Alcohol abuse 07/30/2024 08/19/2024 Episode of shaking 05/18/2024 Seizure 05/18/2024 08/29/2024 Weakness of right facial mus oscar as sequela of nontraumatic subarachnoid hemorrhage 04/23/202408/2023 Facial weakness 04/23/2024 08/29/2024 History of psychogenic nonepileptic seizure 04/03/2024 04/05/2024 Assessment & Plan (04/03/2024 1:15 PM CDT): - Continue keppra 1500mg BID - Seizure precautions; I advised the patient about seizure precautions which includes but not limited to that patient should not drive until he/she is seizure-free for 6 months. He/she should avoid any dangerous environment in which he/she may get serious injury to himself/herself or others in case of seizure. Sinus bradycardia 03/26/2024 08/29/2024 Right hemiplegia 03/25/2024 05/07/2024 CAP (community acquired pneumonia) 03/08/2024 04/05/2024 Hematemesis, unspecified whe ther nausea present 03/07/2024 04/05/2024 Infarct of lung 03/03/2024 08/29/2024 Medication side effect 02/28/202404/05 Opioid use disorder 02/23/2024 12/27/19 Assessment & Plan (02/23/2024 4:46 PM CDT): Sober since 01/31. She has had relapses in the past. I have congratulated her on her success and encouraged her to continue to stay sober. Abnormal wellness exam 02/23/202408/19 Assessment & Plan (02/23/2024 4:48 PM CDT): Routine health maintenance objectives discussed and orders placed for any outstanding screening studies. Physical exam performed as above. Routine annual labs obtained and will be reviewed with patient when results available. Age-appropriate anticipatory guidance and counseling was provided and reviewed including: Encouraged regular physical activity--moderate activity for a total of 150 minutes per week over 3-5 days. Encouraged healthy diet with regular fresh fruits and vegetables limited in processed carbohydrates. Alcohol use Nicotine use Depression screening Suspect patient has a clotting disorder. Referral to Hematology. Clotting labs ordered. Nausea vomiting and diarrhea 02/04/2024 12/26/2024 Opiate withdrawal 02/03/2024 02/23/2024 Vaping nicotine dependence, non-tobacco product 01/23/2024 02/23/2024 Cramps of lower extremity 10/25/2023 Arthralgia of left knee 10/18/202302/04 Underimmunized 10/10/2023 02/23/2024 Arthritis of both knees 10/09/202302/04 Projectile vomiting with nausea 10/03/2023 02/23/2024 Edema of lower extremity 09/26/2023 Joint swelling 07/19/2023 02/23/2024 Assessment & Plan (07/19/2023 12:04 PM CAR DROPPER): Patient with chronic joint pain and swelling particularly in hands and knees. X- rays today without any joint destruction or erosion in either location. Does have minimal osteoarthritis in knees according to radiology read of x-ray. ESR and CRP recently wnl. Clinically, overall reassuring picture - recommend check RF (rheumatoid factor), CCP, and [place] - should any of these serologic tests return negative, reasonable to refer outpatient to rheumatology for evaluation - fibromyalgia is another diagnostic consideration which would have likely negative testing, and may also benefit from rheumatology referral to discuss that possibility Encounter for care related to feeding tube 07/12/2023 02/23/2024 Moderate malnutrition 06/23/20232023 Intractable vomiting 06/20/2023 024 Hematemesis 06/06/2023 02/23/2024 Assessment & Plan (06/09/2023 12:38 PM CDT): Developed hematemesis on 06/05 in setting of intractable N/V, suspect MW-tear. GI consulted, no EGD recommended, continue PPI, sucralfate. Hgb stable despite continued low level hematemesis Marginal ulcer 05/10/2023 02/23/2024 Migraine with aura and witho ut status migrainosus, not intractable 04/25/2023 08/29/2024 Assessment & Plan (05/07/2024 5:57 PM CDT): Patient has appointment with Neurology. We will continue Nurtec for p.r.n. relief. We will start Qulipta 60mg daily for preventative care. Pt advised to follow up in 4 weeks. She has no red flag symptoms present. Discussed using injectable CGRP if oral fails. Assessment & Plan (04/05/2024 3:31 PM CDT): Follow recommendations from neuro. - Nurtec ODT 75mg every other day or migraine prevention - Sumatriptan 100mg q2 hours for migraine relief. Do not take more than 2 doses in 24 hours Assessment & Plan (04/03/2024 1:14 PM CDT): - Nurtec ODT 75mg every other day or migraine prevention - Sumatriptan 100mg q2 hours for migraine relief. Do not take more than 2 doses in 24 hours Assessment & Plan (04/25/2023 6:37 PM CDT): With concurrent right sided headache, has visual scotoma, right facial droop, right arm and right leg weakness, and right sided sensory change Infection of tooth 04/11/2023 4 Dental abscess 03/22/2023 02/23/2024 Arthralgia of right knee 02/27/2023 Cough 02/13/2023 02/23/2024 Weight gain 01/26/2023 02/23/2024 Calculus of kidney 01/09/2023 4 Difficulty in walking, not e lsewhere classified 01/09/2023 02/23/2024 Gastrostomy status 01/09/2023 4 Muscle weakness (generalized) 01/09/2023 02/23/2024 Altered mental status, unspecified 01/09/2023 02/23/2024 Breakthrough seizure 12/30/2022 024 Psychogenic nonepileptic seizure 12/13/2022 02/23/2024 Spells of trembling 12/11/2022 02/23/20 24 Malaise and fatigue 10/20/2022 07/19/20 24 MSSA (methicillin susceptibl e Staphylococcus aureus) septicemia 08/20/2022 02/23/2024 Infectious enteritis 03/29/2022 024 Venosclerosis 02/23/2022 02/23/2024 Wound infection 02/18/2022 02/23/2024 Symptoms involving urinary system 12/30/2021 02/23/2024 Dislodged jejunostomy tube 12/25/2021 0 02/23/2024 Skin infection 12/25/2021 02/23/2024 Volume depletion 09/29/2021 02/23/2024 Skin infection at gastrostomy tube site 04/26/2021 02/23/2024 Insomnia 02/10/2021 02/23/2024 Cellulitis and abscess of trunk 01/19/2021 02/23/2024 COVID-19 09/04/2020 02/23/2024 Assessment & Plan (09/06/2020 12:08 PM CAR DROPPER): Patient presented with cough, SOB, poor PO, fatigue and diarrhea. COVID-19 RNA PCR was sent on 09/04 and positive. 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 The patient does not have evidence of viral pneumonia. - Clinical complications of COVID-19 include: anorexia/malnutrition - Labs are pertinent for INR 1.2, ddimer 424 > 370, CRP 0.9 - The patient currently does notrequires supplemental oxygen. Closely monitor continuous pulse oximetry for evidence of decompensation. Wean oxygen as tolerated. - Prior and active treatments: remdesivir 09/04-2, hold CV plasma and dex due to no O2 - Continue supportive care with antitussives and antipyretics as needed. COVID- 19 droplet and contact precautions per hospital protocol. Assessment & Plan (09/05/2020 6:22 PM CAR DROPPER): Patient presented with cough, SOB, poor PO, fatigue and diarrhea. COVID-19 RNA PCR was sent on 09/04 and positive. 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 The patient does not have evidence of viral pneumonia. - Clinical complications of COVID-19 include: anorexia/malnutrition - Labs are pertinent for INR 1.2, ddimer 424, CRP 0.9 - The patient currently does notrequires supplemental oxygen. Closely monitor continuous pulse oximetry for evidence of decompensation. Wean oxygen as tolerated. - Prior and active treatments: remdesivir 09/04-09/08, hold CV plasma and dex due to no O2 - Continue supportive care with antitussives and antipyretics as needed. COVID- 19 droplet and contact precautions per hospital protocol. Assessment & Plan (09/04/2020 6:48 PM CAR DROPPER): No fevers. Has been using inhaler more frequently for a few days, mild cough. No changes to taste or smell. COVID may be trigger for acute pancreatitis, ileus --CRP, D-dimer, ferritin --Lovenox for DVT prophylaxis --Monitor on tele --Albuterol QID & PRN --Not currently requiring oxygen, will defer dexamethasone & remdesivir for now Cellulitis 09/04/2020 02/23/2024 Assessment & Plan (09/07/2020 3:01 PM CAR DROPPER): Gtube placed after difficulty tolerating PO after SANTO, but has not used in months, removed in ER after discussion with patient. Noted cellulitis s/p augmentin from PCP -worsening purulence despite bactrim -will obtain culture of purulence -CT A/P on admission w/o fluid collection -c/w bactrim (09/05-09/07) > vancomycin started on 09/07 -CTM for response Assessment & Plan (09/05/2020 6:18 PM CAR DROPPER): Gtube placed after difficulty tolerating PO after SANTO, but has not used in months, removed in ER after discussion with patient. Noted cellulitis s/p augmentin from PCP -start bactrim, treat for 5 days (09/05-09/09) Assessment & Plan (09/04/2020 6:37 PM CAR DROPPER): G-tube leaking. Multiple issues with a leaking G-tube in the last 2 months --T-tube removed in ER --Follow up with GI outpatient Diarrhea 09/04/2020 02/23/2024 Assessment & Plan (09/06/2020 12:07 PM CAR DROPPER): Ongoing diarrhea, Likely 2/2 COVID -f/u Cdiff, stool culture not collected yet Assessment & Plan (09/05/2020 6:22 PM CAR DROPPER): Ongoing diarrhea, Likely 2/2 COVID -f/u Cdiff, stool culture Assessment & Plan (09/04/2020 7:28 PM CAR DROPPER): Likely 2/2 covid --Check stool for c-diff, culture History of psychogenic nonepileptic seizure 07/29/2020 02/23/2024 Assessment & Plan (06/06/2023 12:37 PM CDT): -continue Keppra (switched to IV), psych meds. -outpatient f/u with psychiatry and neurology -will likely benefit from referral to a psychotherapist as well Assessment & Plan (06/02/2023 4:25 AM CDT): -continue Keppra, psych meds -outpatient f/u with psychiatry and neurology -will likely benefit from referral to a psychotherapist as well History of epilepsy 07/29/2020 02/23/20 24 Microscopic hematuria 06/03/20202023 Hx laparoscopic cholecystectomy 01/18/2020 02/23/2024 Closed nondisplaced fracture of styloid process of radius with routine healing 06/14/2019 0 09/15/2019 Closed displaced fracture of styloid process of right ulna 06/14/2019 09/15/2019 Hypothyroidism 08/10/2018 09/15/2019 Assessment & Plan (08/10/2018 3:52 PM CAR DROPPER): TSH 5.07, Free T4 0.96. -Continue synthroid 75mcg. Macrocytic anemia 08/06/2018 09/15/2019 Assessment & Plan (08/10/2018 3:49 PM CAR DROPPER): Ms. Napier has history of gastric bypass, B12 was low at 256. She prefers injection while in hospital. -B12 1000mcg IM qd -Can continue PO B12 after discharge. -F/u with PCP after discharge for long-term management. Post-ictal state 08/01/2018 09/15/2019 Functional diarrhea 07/06/2018 09/15/19 20 Right upper quadrant pain 07/05/2018 Transaminitis 06/21/2018 09/15/2019 Assessment & Plan (06/21/2018 12:23 AM CAR DROPPER): Mild. Etiology unclear. Was not present at last admission. Per ED documentation, her new PCP had noted yellowing of her eyes and patient's cholecystectomy was postponed. Will continue to monitor. Abdominal pain 05/25/2018 02/23/2024 Assessment & Plan (05/25/2018 5:13 AM CDT): Left lower quadrant cramping. Suspect possible gynecologic etiology such as mittelschmerz. Patient states LMP is 05/11/2018. NSAIDs are helping however patient had a recent overdose with NSAIDs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 (HCC) FERRITIN Routine 12/26/2024 3:51 PM CDT Anemia, unspecified type T4, FREE Routine 12/26/2024 3:51 PM CDT Acquired hypothyroidism TSH Routine 12/26/2024 3:51 PM CDT Acquired hypothyroidism COMPREHENSIVE METABOLIC PANEL Routine 12/26/2024 3:51 PM CDT Essential hypertension CBC WITH AUTO DIFFERENTIAL Routine 12/26/2024 3:51 PM CDT Anemia, unspecified type EGFR Routine 12/12/2024 2:54 PM CDT Fever, unspecified fever cause DIFFERENTIAL AUTO Routine 12/12/2024 2:5 4 PM CDT Fever, unspecified fever cause Infection of venous access port, sequela Anemia, unspecified type COMPREHENSIVE METABOLIC PANEL Routine 12/12/2024 2:54 PM CDT Fever, unspecified fever cause CBC WITH AUTO DIFFERENTIAL Routine 12/12/2024 2:54 PM CDT Fever, unspecified fever cause Infection of venous access port, sequela Anemia, unspecified type POCT HCG, URINE Routine 12/08/2024 7:52 PM CDT DRUGS OF ABUSE SCREEN, URINE WITHOUT CONFIRMATION STAT 12/08/2024 7:51 PM CDT URINALYSIS AND REFLEX TO MICROSCOPIC AND CULTURE STAT 12/08/2024 7:48 PM CDT EGFR STAT 12/08/2024 7:08 PM CDT DIFFERENTIAL AUTO STAT 12/08/2024 7:0 8 PM CDT COMPREHENSIVE METABOLIC PANEL STAT 12/08/2024 7:08 PM CDT CBC WITH AUTO DIFFERENTIAL STAT 12/08/2024 7:08 PM CDT STREPTOCOCCUS GROUP A PCR STAT 12/08/2024 6:52 PM CDT INFLUENZA A/B, RSV, AND COVID-19 PCR STAT 12/08/2024 6:52 PM CDT TRANSFUSE RED BLOOD CELLS Timed 12/07/2024 11:27 AM CDT PREPARE RBC Timed 12/07/2024 10:36 AM CDT CROSSMATCH Timed 12/07/2024 9:47 AM CDT ANTIBODY SCREEN Timed 12/07/2024 9:47 AM CDT ABO/RH Timed 12/07/2024 9:47 AM CDT TYPE AND SCREEN Timed 12/07/2024 9:47 AM CDT IRON PROFILE W/ IBC STAT 12/07/2024 9 :47 AM CDT EGFR STAT 12/07/2024 9:06 AM CDT DIFFERENTIAL AUTO STAT 12/07/2024 9:0 6 AM CDT MAGNESIUM Routine 12/07/2024 9:06 AM CDT TROPONIN T HIGH-SENSITIVITY SERIES (BASELINE, 2HR, 4HR, 6HR) Routine 12/07/2024 9:06 AM CDT COMPREHENSIVE METABOLIC PANEL STAT 12/07/2024 9:06 AM CDT CBC WITH AUTO DIFFERENTIAL STAT 12/07/2024 9:06 AM CDT ECG 12-LEAD Routine 12/07/2024 8:46 AM CDT HEPATITIS C ANTIBODY Routine 11/13/2024 9:21 PM CDT from Last 3 Months or Most Recently Relevant to Health Maintenance Results * POCT glucose (02/21/2025 8:20 AM CDT) Glucose, POC 92 70 - 199 mg/dL Blood 02/21/2025 8:20 AM CDT 02/21/2025 8:20 AM CDT Yenifer Reagan MD LAB POCT ORDERABLES - DEVICE Final Result Performing Organization Address City/[facility]/ZIP Co de Phone Number [facility]) 1 [facility] [place] [address] * POCT glucose (02/21/2025 2:35 AM CDT) Glucose, POC 93 70 - 199 mg/dL Blood 02/21/2025 2:35 AM CDT 02/21/2025 2:35 AM CDT Yenifer Reagan MD LAB POCT ORDERABLES - DEVICE Final Result [facility]) 1 [facility] [place] [address] * POCT glucose (02/20/2025 9:32 PM CDT) Glucose, POC 96 70 - 199 mg/dL Blood 02/20/2025 9:32 PM CDT 02/20/2025 9:32 PM CDT us Yenifer Reagan MD LAB POCT ORDERABLES - DEVICE Final Result [facility] ([place]) 1 [facility] [place] [address] * POCT glucose (02/20/2025 5:11 PM CDT) Glucose, POC 100 70 - 199 mg/dL Blood 02/20/2025 5:11 PM CDT 02/20/2025 5:11 PM CDT us Yenifer Reagan MD LAB POCT ORDERABLES - DEVICE Final Result [facility] ([place]) 1 [facility] [place] [address] * POCT glucose (02/20/2025 11:29 AM CDT) Glucose, POC 90 70 - 199 mg/dL Blood 02/20/2025 11:2 9 AM CDT 02/20/2025 11:29 AM CDT us Yenifer Reagan MD LAB POCT ORDERABLES - DEVICE Final Result [facility] ([place]) 1 [facility] [place] [address] * POCT glucose (02/20/2025 8:12 AM CDT) Glucose, POC 91 70 - 199 mg/dL Blood 02/20/2025 8:12 AM CDT 02/20/2025 8:12 AM CDT us Yenifer Reagan MD LAB POCT ORDERABLES - DEVICE Final Result [facility] ([place]) 1 [facility] [place] [address] * POCT glucose (02/20/2025 2:17 AM CDT) Glucose, POC 95 70 - 199 mg/dL Blood 02/20/2025 2:17 AM CDT 02/20/2025 2:17 AM CDT Yenifer Reagan MD LAB POCT ORDERABLES - DEVICE Final Result Performing Organization Address [facility] Co de Phone Number [facility] ([place]) 1 [facility] [place] [address] * POCT glucose (02/19/2025 9:58 PM CDT) Glucose, POC 98 70 - 199 mg/dL Blood 02/19/2025 9:58 PM CDT 02/19/2025 9:58 PM CDT Yenifer Reagan MD LAB POCT ORDERABLES - DEVICE Final Result Performing Organization Address [facility] de Phone Number [facility] ([place]) 1 [facility] [place] [address] * POCT glucose (02/19/2025 4:37 PM CDT) Glucose, POC 109 70 - 199 mg/dL Blood 02/19/2025 4:37 PM CDT 02/19/2025 4:37 PM CDT Yenifer Reagan MD LAB POCT ORDERABLES - DEVICE Final Result Performing Organization Address [facility] Co de Phone Number [facility] ([place]) 1 [facility] [place] [address] * POCT glucose (02/19/2025 12:00 PM CDT) Glucose, POC 91 70 - 199 mg/dL Blood 02/19/2025 12:0 0 PM CDT 02/19/2025 12:00 PM CDT Yenifer Reagan MD LAB POCT ORDERABLES - DEVICE Final Result [facility] ([place]) 1 [facility] [place] [address] * Lactate (02/19/2025 11:39 AM CDT) Lactate 0.8 0.7 - 2.0 mmol/L Blood 02/19/2025 11:3 9 AM CDT 02/19/2025 12:16 PM CDT Anamika Olguin MD LAB BLOOD ORDERABLES Fi nal Result Performing Organization Address City/[facility] Co de Phone Number [facility] HwangASH [place]K) [address] [place] [address] [place] [address] * eGFR (02/19/2025 11:39 AM CDT) eGFR >90 >=60 mL/min/1. 73 m2 Comment: Interpretive Data Reference Interval Normal >/= 90 mL/min/1.73m2 Mildly decreased* 60 - 89 mL/min/1.73m2 Mildly to moderately decreased 45 - 59 mL/min/1.73m2 Moderately to severely decreased 30 - 44 mL/min/1.73m2 Severely decreased 15 - 29 mL/min/1.73m2 Kidney Failure < 15 mL/min/1.73m2 *Relative to young adult level Estimated glomerular filtration rate is determined by the 2020 CKD-EPI equation recommended by the National Kidney Foundation (A Unifying Approach to GFR Estimation: Recommendations of the NKF-ASK Task Force on Reassessing the Inclusion of Race in Diagnosing Kidney Disease, JASN 202). The CKD-EPI equation should not be used for patients with unstable renal function and has not been validated in children and those over 70. Current interpretive data was last reviewed 2021. Blood 02/19/2025 11:3 9 AM CDT 02/19/2025 12:14 PM CDT us Anamika Olguin MD LAB BLOOD ORDERABLES Fi nal Result [facility] ([place]) 1 [facility] [place] [address] * Differential, auto (02/19/2025 11:39 AM CDT) Neutrophil abs 3.37 1.50 - 6.50 K/cumm Imm gran abs 0.01 0.00 - 0.10 K/cumm [facility] ([place]) Lymphocyte abs 0.84 0.80 - 3.30 K/cumm [facility] ([place]) Monocyte abs 0.34 0.20 - 0.80 K/cumm [facility] ([place]) Eosinophil abs 0.08 0.00 - 0.50 K/cumm [facility] ([place]) Basophil abs 0.01 0.00 - 0.10 K/cumm [facility] ([place]) Neutrophil pct 72.5 % [facility] ([place]) Comment: Interpretive Data Percent cell count reference ranges are not reported, since discordance with absolute values may lead to misinterpretation of CBC data. Current Interpretive Data was last revised on 2017. Imm gran pct 0.2 % [facility] ([place]) Comment: Interpretive Data Percent cell count reference ranges are not reported, since discordance with absolute values may lead to misinterpretation of CBC data. Current Interpretive Data was last revised on 2017. Lymphocyte pct 18.1 % [facility] ([place]) Comment: Interpretive Data Percent cell count reference ranges are not reported, since discordance with absolute values may lead to misinterpretation of CBC data. Current Interpretive Data was last revised on 2017. Monocyte pct 7.3 % [facility] ([place]) Comment: Interpretive Data Percent cell count reference ranges are not reported, since discordance with absolute values may lead to misinterpretation of CBC data. Current Interpretive Data was last revised on 2017. Eosinophil pct 1.7 % [facility] ([place]) Comment: Interpretive Data Percent cell count reference ranges are not reported, since discordance with absolute values may lead to misinterpretation of CBC data. Current Interpretive Data was last revised on 2017. Basophil pct 0.2 % [facility] ([place]) Comment: Interpretive Data Percent cell count reference ranges are not reported, since discordance with absolute values may lead to misinterpretation of CBC data. Current Interpretive Data was last revised on 2017. Blood 02/19/2025 11:3 9 AM CDT 02/19/2025 12:14 PM CDT us Anamika Olguin MD LAB BLOOD ORDERABLES [facility] Result [facility] ([place]) 1 [facility] [place] [address] * (ABNORMAL) CBC with auto differential (02/19/2025 11:39 AM CDT) WBC 4.65 3.80 - 9.90 K/cumm Hgb 8.9(L) 11.9 - 15.5 g/dL [facility] ([place]) Hct 29.6(L) 35.6 - 45.5 % [facility] ([place]) Plt 181 150 - 400 K/cumm [facility] ([place]) MPV 10.1 9.1 - 12.3 fL [facility] ([place]) RBC 3.48(L) 3.90 - 5.20 M/cumm [facility] ([place]) MCV 85.1 81.3 - 96.4 fL [facility] ([place]) MCH 25.6(L) 27.1 - 33.3 pg [facility] ([place]) MCHC 30.1(L) 32.3 - 35.7 g/dL [facility] ([place]) RDW CV 18.9(H) 11.1 - 14.9 % [facility] ([place]) RDW SD 57.5(H) 35.7 - 48.1 fL [facility] ([place]) NRBC abs 0.00 0.00 - 0.01 K/cumm [facility] ([place]) Blood 02/19/2025 11:3 9 AM CDT 02/19/2025 12:14 PM CDT us Anamika Olguin MD LAB BLOOD ORDERABLES nal Result Performing Organization Address City/[facility]/ZIP Co de Phone Number [facility]ANNER GYPSY ([place]) 1 [facility] [place] [address] * Valproic acid level, total (02/19/2025 11:39 AM CDT) Valproic Acid 55.9 50.0 - 100.0 mcg/mL [facility] ([place]) Comment: Interpretive Data Therapeutic range: 50-100 mcg/mL Current interpretive data was last revised on 2014 Blood 02/19/2025 11:3 9 AM CDT 02/19/2025 12:14 PM CDT us Carmelo Huang MD LAB BLOOD ORDERABLES nal Result Performing Organization Address [facility] Co de Phone Number [facility] ([place]) 1 [facility] [place] [address] * (ABNORMAL) Comprehensive metabolic panel (02/19/2025 11:39 AM CDT) Pathologist [facility] Sodium 140 135 - 145 mmol/L [facility] ([place]) Potassium, pl 3.8 3.3 - 4.9 mmol/L [facility] ([place]) Chloride 103 97 - 110 mmol/L [facility] ([place]) CO2 27 22 - 32 mmol/L [facility] ([place]) Anion gap 10 2 - 15 mmol/L [facility] ([place] BUN 4(L) 6 - 25 mg/dL [facility] ([place]) Creatinine 0.63 0.60 - 1.10 mg/dL [facility] ([place]) Glucose 80 70 - 199 mg/dL [facility] ([place]) Comment: Interpretive Data Fasting glucose >/= 126 mg/dl is diagnostic for diabetes. Fasting is defined as no caloric intake for at least 8 hours. Fasting glucose between 100 mg/dl to 125 mg/dl is diagnostic of prediabetes. In a patient with classic symptoms of hyperglycemia or hyperglycemic crisis, a random glucose >/= 200 mg/dl is diagnostic for diabetes. In the absence of unequivocal hyperglycemia, results should be confirmed by repeat testing. The classification and Diagnosis of Diabetes Diabetes Care 2021; 46: S19-S40. Current interpretive data was last revised 2022. Calcium 8.7 8.5 - 10.3 mg/dL [facility] ([place]) Bilirubin, total 0.2 0.1 - 1.2 mg/dL [facility] ([place]) Protein, pl 6.2(L) 6.5 - 8.5 g/dL [facility] ([place]) Albumin 3.9 3.5 - 5.0 g/dL [facility] ([place]) Alk phos 88 40 - 130 Units/L [facility] ([place]) ALT 14 7 - 45 Units/L [facility] ([place]) AST 17 10 - 45 Units/L [facility] ([place]) Blood 02/19/2025 11:3 9 AM CDT 02/19/2025 12:14 PM CDT us Anamika Olguin MD LAB BLOOD ORDERABLES Fi nal Result [facility] ([place]) 1 [place] [address] * POCT glucose (02/19/2025 8:03 AM CDT) Glucose, POC 95 70 - 199 mg/dL Blood 02/19/2025 8:03 AM CDT 02/19/2025 8:03 AM CDT us Yenifer Reagan MD LAB POCT ORDERABLES - DEVICE Final Result [facility] ([place]) [address] [place] [address] * POCT glucose (02/19/2025 2:25 AM CDT) Glucose, POC 93 70 - 199 mg/dL Blood 02/19/2025 2:25 AM CDT 02/19/2025 2:25 AM CDT us Yenifer Reagan MD LAB POCT ORDERABLES - DEVICE Final Result [facility] ([place]) 1 [facility] [place] [address] * CT Head WO Contrast (02/19/2025 2:09 AM CDT) Anatomical Region Laterality Modality Head and Neck N/A Computed Tomogra phy 02/19/2025 4:50 AM CDT Narrative 02/19/2025 4:55 AM CDT EXAM DESCRIPTION: CT HEAD WO CONTRAST REASON FOR STUDY: Seizure, 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 Multiple patient safety devices used to attain a diagnostic scan, patient seems to only be moving while the scan table moves and then stops when the table stops TECHNIQUE: Axial images acquired through the brain without intravenous contrast. Images stored on PACS. Automated exposure control was used as a dose optimization technique for this examination. COMPARISON: 12/27/2024 FINDINGS: BRAIN: No mass, hemorrhage, or recent infarct. Normal white matter. Volume within normal limits for age. VASCULAR: No dense vessel or obvious aneurysm. EXTRA-AXIAL SPACES: No mass or fluid collection. ORBITS/GLOBES: Unremarkable. SOFT TISSUES: Unremarkable. BONES/SINUSES: No fracture or lesion. Paranasal sinuses and other skullbase airspaces are clear. IMPRESSION: No acute abnormality identified. THIS IS AN ELECTRONICALLY VERIFIED FINAL REPORT 02/19/2025 4:55 AM - Electronically signed by Wan Baker M.D. 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 Multiple patient safety devices usedto attain a diagnostic scan, patient seems to only be moving while the scantable moves and then stops when the table stops TECHNIQUE: Axial images acquired through the brain without intravenous contrast. Images stored on PACS. Automated exposure control was used asa dose optimization technique for this examination. COMPARISON: 12/27/2024 FINDINGS: BRAIN: No mass, hemorrhage, or recent infarct. Normal white matter. Volume within normal limits for age. VASCULAR: No dense vessel or obvious aneurysm. EXTRA-AXIAL SPACES: No mass or fluid collection. ORBITS/GLOBES: Unremarkable. SOFT TISSUES: Unremarkable. BONES/SINUSES: No fracture or lesion. Paranasal sinuses and otherskullbase airspaces are clear. IMPRESSION: No acute abnormality identified. THIS IS AN ELECTRONICALLY VERIFIED FINAL REPORT 02/19/2025 4:55 AM - Electronically signed by Wan Baker M.D. AR: KAMILA Report ID: [id number] Reading Location: [place] [address] Anamika Olguin MD IMG CT PROCEDURES Final Result * (ABNORMAL) Blood gas, arterial (02/19/2025 1:44 AM CDT) pH, Art 7.38 7.35 - 7.45 PCO2, Arterial 48(H) 35 - 45 mmHg [facility] ([place]) PO2, Arterial 60(L) 83 - 108 mmHg [facility] ([place]) HCO3 Art (Calculated) 28 20 - 30 mmol/L [facility] ([place]) BE, art 3 mmol/L [facility] ([place]) Comment: Interpretive Data No Reference Range Established Current Interpretive Data was last revised on 2017 O2 Sat Art (Measured) 90 90 - 95 % [facility] ([place]) Blood 02/19/2025 1:44 AM CDT 02/19/2025 1:47 AM CDT Anamika Olguin MD LAB BLOOD ORDERABLES Fi nal Result [facility] ([place]) 1 [facility] [place] [address] * POCT glucose (02/18/2025 8:30 PM CDT) Glucose, POC 103 70 - 199 mg/dL Blood 02/18/2025 8:30 PM CDT 02/18/2025 8:30 PM CDT Yenifer Reagan MD LAB POCT ORDERABLES - DEVICE Final Result [facility] ([place]) [address] [place] [address] * POCT glucose (02/18/2025 5:13 PM CDT) Glucose, POC 93 70 - 199 mg/dL Blood 02/18/2025 5:13 PM CDT 02/18/2025 5:13 PM CDT Yenifer Reagan MD LAB POCT ORDERABLES - DEVICE Final Result [facility] ([place]) 1 [facility] [place] [address] * POCT glucose (02/18/2025 11:55 AM CDT) Glucose, POC 92 70 - 199 mg/dL Blood 02/18/2025 11:5 5 AM CDT 02/18/2025 11:55 AM CDT Phani Hobbs MD LAB POCT ORDERABLES - KEL[place] CE Final Result [facility] ([place]) [address] [place] [address] * POCT glucose (02/18/2025 7:52 AM CDT) Glucose, POC 94 70 - 199 mg/dL Blood 02/18/2025 7:52 AM CDT 02/18/2025 7:52 AM CDT Phani Hobbs MD LAB POCT ORDERABLES - KELSEA CE Final Result [facility] ([place]) 1 [facility] [place] [address] * Critical Care (02/18/2025 1:23 AM CDT) Narrative Marlon Capps MD - 02/18/2025 1:23 AM CDT Marlon Capps MD 02/18/2025 1:24 AM Critical Care Performed by: Marlon Capps MD Authorized by: Marlon Capps MD CRITICAL CARE: Team: EICU Shift: PM Level of Billing: Critical Care My time spent with this patient was 30 minutes: Critical Provider Statement: I have seen and examined the patient on this day of service. I have reviewed and confirmed the history, physical exam, laboratory and radiologic data as documented in the signed ICU note. I have reviewed and discussed my treatment plan with the ICU team and other medical/automotive internet sales consultant staff, making frequent assessments and decisions regarding this patient's complex medical care. Critical Care time was exclusive of time spent performing separately billed procedures, treating other patients, and teaching. This time was in addition to and separate from critical care provided by other practitioners in my group on this day of service. Critical Care was necessary to treat or prevent imminent or life-threatening deterioration of the following conditions: Seizure Alcohol Withdrawal This time was spent by me doing the following: Administration of sedatives and psychotropic medications I spent time reviewing and interpreting data from bedside monitors, laboratory results, and imaging and I spent time discussing the management of this critically ill patient with consultants and the medical staff us Marlon Capps MD IN CLINIC/BEDSIDE ORDERABLES Final Result * POCT glucose (02/17/2025 8:23 PM CDT) Glucose, POC 102 70 - 199 mg/dL Blood 02/17/2025 8:23 PM CDT 02/17/2025 8:23 PM CDT Phani Hobbs MD LAB POCT ORDERABLES - KELSEA CE Final Result Performing Organization Address City/[facility] Co de Phone Number [facility] ([place]) 1 [facility] [place] [address] * EEG (02/17/2025 5:41 PM CDT) Anatomical Region Laterality Modality Other Impressions 02/17/2025 5:41 PM CDT History: This is a 29 years old patient being evaluated for seizure disorder. The condition of the patient during the tracing was unknown. The quality of study is compromised significantly by excessive artifact. The background activity consisted of excessive high amplitude artifacts. There was no epileptiform discharges seen in this tracing. EKG showed regular rate and rhythm. Impressions: This is a very limited study because of excessive background artifact. Based on the limited study, there was no obvious epileptiform discharge seen in this tracing, but epileptiform discharge can not be excluded. The clinical correlation is recommended. Roby Rivero II, MD NEUROLOGY ORDERABLES Final R esult * POCT glucose (02/17/2025 4:04 PM CDT) Glucose, POC 104 70 - 199 mg/dL Blood 02/17/2025 4:04 PM CDT 02/17/2025 4:04 PM CDT Phani Hobbs MD LAB POCT ORDERABLES - KELSEA CE Final Result Performing Organization Address City/[facility]/ZIP Co de Phone Number [facility] ([place]) 1 [facility] [place] [address] * POCT glucose (02/17/2025 12:05 PM CDT) Glucose, POC 106 70 - 199 mg/dL Blood 02/17/2025 12:0 5 PM CDT 02/17/2025 12:05 PM CDT Phani Hobbs MD LAB POCT ORDERABLES - KELSEA CE Final Result [facility] ([place]) 1 [facility] [place] [address] * POCT glucose (02/17/2025 9:28 AM CDT) Glucose, POC 96 70 - 199 mg/dL Blood 02/17/2025 9:28 AM CDT 02/17/2025 9:28 AM CDT Phani Hobbs MD LAB POCT ORDERABLES - KELSEA CE Final Result Performing Organization Address City/[facility] Co de Phone Number [facility] ([place]) 1 [facility] [place] [address] * eGFR (02/17/2025 3:32 AM CDT) eGFR >90 >=60 mL/min/1. 73 m2 Comment: Interpretive Data Reference Interval Normal >/= 90 mL/min/1.73m2 Mildly decreased* 60 - 89 mL/min/1.73m2 Mildly to moderately decreased 45 - 59 mL/min/1.73m2 Moderately to severely decreased 30 - 44 mL/min/1.73m2 Severely decreased 15 - 29 mL/min/1.73m2 Kidney Failure < 15 mL/min/1.73m2 *Relative to young adult level Estimated glomerular filtration rate is determined by the 2020 CKD-EPI equation recommended by the National Kidney Foundation (A Unifying Approach to GFR Estimation: Recommendations of the NKF-ASK Task Force on Reassessing the Inclusion of Race in Diagnosing Kidney Disease, JASN 2020). The CKD-EPI equation should not be used for patients with unstable renal function and has not been validated in children and those over 70. Current interpretive data was last reviewed 2021. Blood 02/17/2025 3:32 AM CDT 02/17/2025 3:59 AM CDT Anamika Olguin MD LAB BLOOD ORDERABLES Fi nal Result [facility] ([place]) 1 [facility] [place] [address] * Differential, auto (02/17/2025 3:32 AM CDT) Neutrophil abs 3.25 1.50 - 6.50 K/cumm Imm gran abs 0.01 0.00 - 0.10 K/cumm [facility] ([place]) Lymphocyte abs 1.22 0.80 - 3.30 K/cumm [facility] ([place]) Monocyte abs 0.42 0.20 - 0.80 K/cumm [facility] ([place]) Eosinophil abs 0.09 0.00 - 0.50 K/cumm [facility] ([place]) Basophil abs 0.02 0.00 - 0.10 K/cumm [facility] ([place]) Neutrophil pct 64.8 % [facility] ([place]) Comment: Interpretive Data Percent cell count reference ranges are not reported, since discordance with absolute values may lead to misinterpretation of CBC data. Current Interpretive Data was last revised on 2017. Imm gran pct 0.2 % [facility] ([place]) Comment: Interpretive Data Percent cell count reference ranges are not reported, since discordance with absolute values may lead to misinterpretation of CBC data. Current Interpretive Data was last revised on 2017. Lymphocyte pct 24.4 % [facility] ([place]) Comment: Interpretive Data Percent cell count reference ranges are not reported, since discordance with absolute values may lead to misinterpretation of CBC data. Current Interpretive Data was last revised on 2017. Monocyte pct 8.4 % [facility] ([place]) Comment: Interpretive Data Percent cell count reference ranges are not reported, since discordance with absolute values may lead to misinterpretation of CBC data. Current Interpretive Data was last revised on 2017. Eosinophil pct 1.8 % [facility] ([place]) Comment: Interpretive Data Percent cell count reference ranges are not reported, since discordance with absolute values may lead to misinterpretation of CBC data. Current Interpretive Data was last revised on 2017. Basophil pct 0.4 % [facility] ([place]) Comment: Interpretive Data Percent cell count reference ranges are not reported, since discordance with absolute values may lead to misinterpretation of CBC data. Current Interpretive Data was last revised on 2017. Blood 02/17/2025 3:32 AM CDT 02/17/2025 3:59 AM CDT Anamika Olguin MD LAB BLOOD ORDERABLES Fi nal Result [facility] ([place]) 1 [facility] [place] [address] * POCT glucose (02/17/2025 3:32 AM CDT) Pathologist [facility] Glucose, POC 95 70 - 199 mg/dL Blood 02/17/2025 3:32 AM CDT 02/17/2025 3:32 AM CDT Phani Hobbs MD LAB POCT ORDERABLES - [facility] CE Final Result Performing Organization Address City/[facility] Co de Phone Number [facility] ([place]) 1 [facility] [place] [address] * (ABNORMAL) CBC with auto differential (02/17/2025 3:32 AM CDT) WBC 5.01 3.80 - 9.90 K/cumm Hgb 9.0(L) 11.9 - 15.5 g/dL [facility] Hct 30.0(L) 35.6 - 45.5 % [facility] ([place]) Plt 238 150 - 400 K/cumm [facility] ([place]) MPV 10.2 9.1 - 12.3 fL [facility]) RBC 3.60(L) 3.90 - 5.20 M/cumm [facility] ([place]) MCV 83.3 81.3 - 96.4 fL [facility] ([place]) MCH 25.0(L) 27.1 - 33.3 pg [facility] ([place]) MCHC 30.0(L) 32.3 - 35.7 g/dL [facility] ([place]) RDW CV 18.7(H) 11.1 - 14.9 % [facility] ([place]) RDW SD 57.4(H) 35.7 - 48.1 fL [facility] ([place]) NRBC abs 0.00 0.00 - 0.01 K/cumm [facility] ([place]) Blood 02/17/2025 3:32 AM CDT 02/17/2025 3:59 AM CDT us Anamika Olguin MD LAB BLOOD ORDERABLES Fi nal Result [facility] ([place]) 1 [facility] [place] [address] * (ABNORMAL) Comprehensive metabolic panel (02/17/2025 3:32 AM CDT) Sodium 140 135 - 145 mmol/L Potassium, pl 3.6 3.3 - 4.9 mmol/L [facility] ([place]) Chloride 103 97 - 110 mmol/L [facility] ([place]) CO2 23 22 - 32 mmol/L [facility] Anion gap 14 2 - 15 mmol/L [facility] ([place] BUN 5(L) 6 - 25 mg/dL [facility] ([place]) Creatinine 0.68 0.60 - 1.10 mg/dL [facility] ([place]) Glucose 89 70 - 199 mg/dL [facility] ([place]) Comment: Interpretive Data Fasting glucose >/= 126 mg/dl is diagnostic for diabetes. Fasting is defined as no caloric intake for at least 8 hours. Fasting glucose between 100 mg/dl to 125 mg/dl is diagnostic of prediabetes. In a patient with classic symptoms of hyperglycemia or hyperglycemic crisis, a random glucose >/= 200 mg/dl is diagnostic for diabetes. In the absence of unequivocal hyperglycemia, results should be confirmed by repeat testing. The classification and Diagnosis of Diabetes Diabetes Care 2021; 46: S19-S40. Current interpretive data was last revised 2022. Calcium 8.4(L) 8.5 - 10.3 mg/dL [facility] ([place]) Bilirubin, total 0.4 0.1 - 1.2 mg/dL [facility] ([place]) Protein, pl 5.9(L) 6.5 - 8.5 g/dL [facility] ([place]) Albumin 3.8 3.5 - 5.0 g/dL [facility] ([place]) Alk phos 111 40 - 130 Units/L [facility] ([place]) ALT 13 7 - 45 Units/L [facility] ([place]) AST 20 10 - 45 Units/L [facility] ([place]) Blood 02/17/2025 3:32 AM CDT 02/17/2025 3:59 AM CDT us Anamika Olguin MD LAB BLOOD ORDERABLES Fi nal Result [facility] ([place]) 1 [facility] [place] [address] * Critical Care (02/17/2025 1:26 AM CDT) Narrative Marlon Capps MD - 02/17/2025 1:26 AM CDT Marlon Capps MD 02/17/2025 1:35 AM Critical Care Performed by: Marlon Capps MD Authorized by: Marlon Capps MD CRITICAL CARE: Team: EICU Shift: PM Level of Billing: Critical Care My time spent with this patient was 45 minutes: Critical Provider Statement: I have seen and examined the patient on this day of service. I have reviewed and confirmed the history, physical exam, laboratory and radiologic data as documented in the signed ICU note. I have reviewed and discussed my treatment plan with the ICU team and other medical/automotive internet sales consultant staff, making frequent assessments and decisions regarding this patient's complex medical care. Critical Care time was exclusive of time spent performing separately billed procedures, treating other patients, and teaching. This time was in addition to and separate from critical care provided by other practitioners in my group on this day of service. Critical Care was necessary to treat or prevent imminent or life-threatening deterioration of the following conditions: Seizure Alcohol Withdrawal This time was spent by me doing the following: Administration of sedatives and psychotropic medications and Anti-epileptic therapy I spent time reviewing and interpreting data from bedside monitors, laboratory results, and imaging and I spent time discussing the management of this critically ill patient with consultants and the medical staff Marlon Capps MD IN CLINIC/BEDSIDE ORDERABLES Final Result * POCT glucose (02/16/2025 8:24 PM CDT) Glucose, POC 108 70 - 199 mg/dL Blood 02/16/2025 8:24 PM CDT 02/16/2025 8:24 PM CDT Phani Hobbs MD LAB POCT ORDERABLES - KELSEA CE Final Result Performing Organization Address [facility]/ZIP Co de Phone Number [facility] ([place]) 1 [facility] [place] [address] * POCT glucose (02/16/2025 4:57 PM CDT) Glucose, POC 108 70 - 199 mg/dL Blood 02/16/2025 4:57 PM CDT 02/16/2025 4:57 PM CDT Phani Hobbs MD LAB POCT ORDERABLES - KELSEA CE Final Result Performing Organization Address City/[facility]/ZIP Co de Phone Number [facility] [address] [place] [address] [place] [address] * Prolactin (02/16/2025 2:03 PM CDT) Prolactin 20.5 4.8 - 23.3 ng/mL Comment:Testing performed by : [facility], [address] [place] [address], [place]., [address] Blood 02/16/2025 2:03 PM CDT 02/17/2025 11:22 AM CDT Narrative [facility] ([place]) - 02/17/2025 12:15 PM CDT To be drawn within 1/2 hour of a seizure Roby Rivero II, MD LAB BLOOD ORDERABLES Final R esult Performing Organization Address City/[facility] Co de Phone Number [facility]EL [facility] [place]) 1 [facility] [place] [address] * Levetiracetam level (02/16/2025 2:03 PM CDT) Levetiracetam (Keppra) 30.5 10.0 - 40.0 mcg/mL [facility] Comment: ADDITIONAL INFORMATION This test was developed and its performance characteristics determined by [facility] in a manner consistent with CLIA requirements. This test has not been cleared or approved by the U.S. Food and Drug Administration. Test Performed by: [address] [address] Solid Waste Manager: Sis Dominguez Ph.D.; CLIA# [id number] Blood 02/16/2025 2:03 PM CDT 02/16/2025 2:06 PM CDT Roby Rivero II, MD LAB BLOOD ORDERABLES Final R [facility] Performing Organization Address [facility] Co de Phone Number [facility] ([place]) 1 [facility] [place] [address] [facility] * (ABNORMAL) Valproic acid level, total (02/16/2025 2:03 PM CDT) Valproic Acid 29.9(L) 50.0 - 100.0 mcg/mL Comment: Interpretive Data Therapeutic range: 50-100 mcg/mL Current interpretive data was last revised on 2014 Blood 02/16/2025 2:03 PM CDT 02/16/2025 2:06 PM CDT Roby Rivero II, MD LAB BLOOD ORDERABLES Final R esult [facility] [place] 1 [facility] [place] [address] * XR CHEST 1 VIEW PORTABLE (02/16/2025 1:44 PM CDT) Anatomical Region Laterality Modality Body, Chest N/A Computed Radiogr aphy 02/16/2025 1:48 PM CDT Narrative 02/16/2025 1:50 PM CDT EXAM DESCRIPTION: XR CHEST 1 VIEW REASON FOR STUDY: Other (type), post CL Other (type); post CL TECHNIQUE: Frontal radiographic view(s) of the chest. COMPARISON: Chest radiograph dated 12/28/2024. FINDINGS: LUNGS: Low lung volumes. Mild right basilar atelectasis and/or scarring. No focal airspace consolidation. No large pleural effusion. No pneumothorax. HEART/MEDIASTINUM: Cardiac silhouette normal in size. Mediastinal and hilar contours appear normal. LINES/TUBES: A right IJ central venous catheter is seen with tip terminating over the distal SVC. BONES: No acute osseous abnormality. IMPRESSION: No acute cardiopulmonary abnormality. THIS IS AN ELECTRONICALLY VERIFIED FINAL REPORT 02/16/2025 1:50 PM - Electronically signed by Carmelo Ulloa M.D. MF: [id number] Report ID: [id number] Reading Location: [id number] Procedure Note Carmelo Ulloa, DO - 02/16/2025 EXAM DESCRIPTION: XR CHEST 1 VIEW REASON FOR STUDY: Other (type), post CL Other (type); post CL TECHNIQUE: Frontal radiographic view(s) of the chest. COMPARISON: Chest radiograph dated 12/28/2024. FINDINGS: LUNGS: Low lung volumes. Mild right basilar atelectasis and/or scarring.No focal airspace consolidation. No large pleural effusion. Nopneumothorax. HEART/MEDIASTINUM: Cardiac silhouette normal in size. Mediastinal andhilar contours appear normal. LINES/TUBES: A right IJ central venous catheter is seen with tipterminating over the distal SVC. BONES: No acute osseous abnormality. IMPRESSION: No acute cardiopulmonary abnormality. THIS IS AN ELECTRONICALLY VERIFIED FINAL REPORT 02/16/2025 1:50 PM - Electronically signed by Carmelo Ulloa M.D. MF: [id number] Report ID: [id number] Reading Location: [place] [address] Phani Hobbs MD IMG XR PROCEDURES Final Re sult * POCT glucose (02/16/2025 11:49 AM CDT) Glucose, POC 103 70 - 199 mg/dL Blood 02/16/2025 11:4 9 AM CDT 02/16/2025 11:49 AM CDT Phani Hobbs MD LAB POCT ORDERABLES - KELSEA CE Final Result Performing Organization Address [facility] Co de Phone Number [facility] ([place]) 1 [place] [address] * POCT glucose (02/16/2025 8:47 AM CDT) Glucose, POC 126 70 - 199 mg/dL Blood 02/16/2025 8:47 AM CDT 02/16/2025 8:47 AM CDT Phani Hobbs MD LAB POCT ORDERABLES - KELSEA CE Final Result Performing Organization Address [facility] Co de Phone Number [facility] ([place]) [address] [place] [address] * (ABNORMAL) Urinalysis reflex to microscopic and culture Urine (02/16/2025 3:56 AM CDT) Color, ur Yellow Yellow Clarity, ur Turbid(A) Clear [facility] ([place]) Specific gravity, ur 1.028 1.003 - 1.030 [facility] ([place]) pH, urine 6.0 [facility] ([place]) Comment: Interpretive Data U rine pH is affected by diet, medications, systemic acid-base disturbances, and renal tubular function. pH may affect urinary stone formation. For example, urine pH below 6.0 may help reduce the tendency for calcium phosphate stones and pH greater than 6.0 may reduce the tendency for uric acid stone formation. Source: [facility] [place] Current Interpretive Data was last revised on 2017 Protein, ur ql Trace Negative [facility] ([place]) Glucose, ur ql Negative Negative [facility] ([place]) Ketones, ur Negative Negative [facility] ([place]) Bilirubin, ur Negative Negative [facility] ([place]) Blood, ur Negative Negative [facility] ([place]) Urobilinogen, ur <2.0 <2.0 mg/dL [facility] ([place]) Nitrite, ur Positive(A) Negative [facility] ([place]) Leukocyte esterase, ur Negative Negative [facility] ([place]) UA reflex comment Reflex to microscopic UA will be performed. [facility] ([place]) Urine 02/16/2025 3:56 AM CDT 02/16/2025 4:23 AM CDT us Anamika Olguin MD LAB MICROBIOLOGY - [facility] ORDERABLES Final Result [facility] ([place]) 1 [facility] Department [place] [address] * (ABNORMAL) Urinalysis, microscopic only (02/16/2025 3:56 AM CDT) WBC, ur 0-5 0 - 5 /HPF RBC, ur 0-2 0 - 2 /HPF [facility] ([place]) Epithelial cells, squamous, ur 1-5 0 - 5 /HPF [facility] ([place]) Bacteria, ur 4+(A) [facility] ([place]) Mucous, ur Present(A) [facility] ([place]) Culture Reflex Comment Reflex conditions for urine culture (WBC >10) not met. [facility] ([place]) Urine 02/16/2025 3:56 AM CDT 02/16/2025 4:23 AM CDT Anamika Olguin MD LAB URINE ORDERABLES Fi nal Result [facility] ([place]) 1 [facility] [place] [address] * eGFR (02/16/2025 3:44 AM CDT) eGFR >90 >=60 mL/min/1. 73 m2 Comment: Interpretive Data Reference Interval Normal >/= 90 mL/min/1.73m2 Mildly decreased* 60 - 89 mL/min/1.73m2 Mildly to moderately decreased 45 - 59 mL/min/1.73m2 Moderately to severely decreased 30 - 44 mL/min/1.73m2 Severely decreased 15 - 29 mL/min/1.73m2 Kidney Failure < 15 mL/min/1.73m2 *Relative to young adult level Estimated glomerular filtration rate is determined by the 2020 CKD-EPI equation recommended by the National Kidney Foundation (A Unifying Approach to GFR Estimation: Recommendations of the NKF-ASK Task Force on Reassessing the Inclusion of Race in Diagnosing Kidney Disease, JASN 2020). The CKD-EPI equation should not be used for patients with unstable renal function and has not been validated in children and those over 70. Current interpretive data was last reviewed 2021. Blood 02/16/2025 3:44 AM CDT 02/16/2025 4:23 AM CDT Anamika Olguin MD LAB BLOOD ORDERABLES Fi nal Result [facility] ([place]) 1 [facility] [place] [address] * Differential, auto (02/16/2025 3:44 AM CDT) Neutrophil abs 2.60 1.50 - 6.50 K/cumm Imm gran abs 0.00 0.00 - 0.10 K/cumm [facility] ([place]) Lymphocyte abs 1.19 0.80 - 3.30 K/cumm [facility] ([place]) Monocyte abs 0.38 0.20 - 0.80 K/cumm [facility] ([place]) Eosinophil abs 0.05 0.00 - 0.50 K/cumm [facility] ([place]) Basophil abs 0.01 0.00 - 0.10 K/cumm [facility] ([place]) Neutrophil pct 61.5 % [facility] ([place]) Comment: Interpretive Data Percent cell count reference ranges are not reported, since discordance with absolute values may lead to misinterpretation of CBC data. Current Interpretive Data was last revised on 2017. Imm gran pct 0.0 % [facility] ([place]) Comment: Interpretive Data Percent cell count reference ranges are not reported, since discordance with absolute values may lead to misinterpretation of CBC data. Current Interpretive Data was last revised on 2017. Lymphocyte pct 28.1 % [facility] ([place]) Comment: Interpretive Data Percent cell count reference ranges are not reported, since discordance with absolute values may lead to misinterpretation of CBC data. Current Interpretive Data was last revised on 2017. Monocyte pct 9.0 % [facility] ([place]) Comment: Interpretive Data Percent cell count reference ranges are not reported, since discordance with absolute values may lead to misinterpretation of CBC data. Current Interpretive Data was last revised on 2017. Eosinophil pct 1.2 % [facility] ([place]) Comment: Interpretive Data Percent cell count reference ranges are not reported, since discordance with absolute values may lead to misinterpretation of CBC data. Current Interpretive Data was last revised on 2017. Basophil pct 0.2 % [facility] ([place]) Comment: Interpretive Data Percent cell count reference ranges are not reported, since discordance with absolute values may lead to misinterpretation of CBC data. Current Interpretive Data was last revised on 2017. Blood 02/16/2025 3:44 AM CDT 02/16/2025 4:03 AM CDT us Anamika Olguin MD LAB BLOOD ORDERABLES Fi nal Result [facility] ([place]) 1 [facility] [place] [address] * (ABNORMAL) CBC with auto differential (02/16/2025 3:44 AM CDT) WBC 4.23 3.80 - 9.90 K/cumm Hgb 9.2(L) 11.9 - 15.5 g/dL [facility] ([place]) Hct 30.4(L) 35.6 - 45.5 % [facility] ([place]) Plt 222 150 - 400 K/cumm [facility] ([place]) MPV 10.0 9.1 - 12.3 fL [facility] ([place]) RBC 3.74(L) 3.90 - 5.20 M/cumm [facility] ([place]) MCV 81.3 81.3 - 96.4 fL [facility] ([place]) MCH 24.6(L) 27.1 - 33.3 pg [facility] ([place]) MCHC 30.3(L) 32.3 - 35.7 g/dL [facility] ([place]) RDW CV 19.0(H) 11.1 - 14.9 % [facility] ([place]) RDW SD 56.1(H) 35.7 - 48.1 fL [facility] ([place]) NRBC abs 0.00 0.00 - 0.01 K/cumm [facility] ([place]) Blood 02/16/2025 3:44 AM CDT 02/16/2025 4:03 AM CDT us Anamika Olguin MD LAB BLOOD ORDERABLES Fi nal Result [facility] ([place]) 1 [facility] [place] [address] * Magnesium (02/16/2025 3:44 AM CDT) Magnesium 2.1 1.4 - 2.5 mg/dL Blood 02/16/2025 3:44 AM CDT 02/16/2025 4:23 AM CDT us Anamika Olguin MD LAB BLOOD ORDERABLES Fi nal Result [facility] ([place]) 1 [facility] [place] [address] * (ABNORMAL) Comprehensive metabolic panel (02/16/2025 3:44 AM CDT) Sodium 136 135 - 145 mmol/L Potassium, pl 3.8 3.3 - 4.9 mmol/L [facility] ([place]) Chloride 101 97 - 110 mmol/L [facility] ([place]) CO2 23 22 - 32 mmol/L [facility] ([place]) Anion gap 12 2 - 15 mmol/L [facility] ([place]) BUN 8 6 - 25 mg/dL [facility] ([place]) Creatinine 0.68 0.60 - 1.10 mg/dL [facility] ([place]) Glucose 112 70 - 199 mg/dL [facility] ([place]) Comment: Interpretive Data Fasting glucose >/= 126 mg/dl is diagnostic for diabetes. Fasting is defined as no caloric intake for at least 8 hours. Fasting glucose between 100 mg/dl to 125 mg/dl is diagnostic of prediabetes. In a patient with classic symptoms of hyperglycemia or hyperglycemic crisis, a random glucose >/= 200 mg/dl is diagnostic for diabetes. In the absence of unequivocal hyperglycemia, results should be confirmed by repeat testing. The classification and Diagnosis of Diabetes Diabetes Care 2021; 46: S19-S40. Current interpretive data was last revised 2022. Calcium 8.7 8.5 - 10.3 mg/dL [facility] ([place]) Bilirubin, total 0.5 0.1 - 1.2 mg/dL [facility] ([place]) Protein, pl 6.3(L) 6.5 - 8.5 g/dL [facility] ([place]) Albumin 4.0 3.5 - 5.0 g/dL [facility] ([place]) Alk phos 113 40 - 130 Units/L [facility] ([place]) ALT 14 7 - 45 Units/L [facility] ([place]) AST 20 10 - 45 Units/L [facility] ([place]) Blood 02/16/2025 3:44 AM CDT 02/16/2025 4:23 AM CDT us Anamika Olguin MD LAB BLOOD ORDERABLES Fi nal Result [facility] ([place]) 1 [facility] [place] [address] * Critical Care (02/16/2025 2:31 AM CDT) Narrative Marlon Capps MD - 02/16/2025 2:31 AM CDT Marlon Capps MD 02/16/2025 2:33 AM Critical Care Performed by: Marlon Capps MD Authorized by: Marlon Capps MD CRITICAL CARE: Team: EICU Shift: PM Level of Billing: Critical Care My time spent with this patient was 60 minutes: Critical Provider Statement: I have seen and examined the patient on this day of service. I have reviewed and confirmed the history, physical exam, laboratory and radiologic data as documented in the signed ICU note. I have reviewed and discussed my treatment plan with the ICU team and other medical/automotive internet sales consultant staff, making frequent assessments and decisions regarding this patient's complex medical care. Critical Care time was exclusive of time spent performing separately billed procedures, treating other patients, and teaching. This time was in addition to and separate from critical care provided by other practitioners in my group on this day of service. Critical Care was necessary to treat or prevent imminent or life-threatening deterioration of the following conditions: Seizure Acute Alcohol Withdrawal This time was spent by me doing the following: Active titration of continuous sedation and Administration of sedatives and psychotropic medications I spent time reviewing and interpreting data from bedside monitors, laboratory results, and imaging, I spent time documenting in the medical record and I spent time discussing the management of this critically ill patient with consultants and the medical staff us Marlon Capps MD IN CLINIC/BEDSIDE ORDERABLES Final Result * Infection Prevention MRSA Only (Staphylococcus aureus) PCR Nasal (02/15/2025 10:05 PM CDT) PCR Scrn, Methicillin resistant Staphylococcus aureus (MRSA) Not Detected Not Detected Comment: Interpretive Data Testing performed using Nucleic Acid Amplification with the Mismi Xpert MRSA NxG Assay. This assay detects target DNA from mecA, mecC and the SCCmec insertion site of Staphylococcus aureus using Real-Time PCR and has been cleared by the FDA. Performance characteristics have been verified by the [facility]. Current Interpretive Data was last revised on 2022 Nasal 02/15/2025 10:0 5 PM CDT 02/15/2025 10:12 PM CDT Phani Hobbs MD LAB MICROBIOLOGY - GENERAL ORDERABLES Final Result Performing Organization Address City/[facility]/ZIP Co de Phone Number [facility] ([place]) [address] [place] [address] [place] [address] * Ammonia (02/15/2025 10:05 PM CDT) Pathologist [facility] Ammonia 19 <=50 mcmol/L Blood 02/15/2025 10:0 5 PM CDT 02/15/2025 10:12 PM CDT Marlon Capps MD LAB BLOOD ORDERABLES Final R esult Performing Organization Address City/[facility] Co de Phone Number [facility] [facility] ([place] [facility]) [address] [place] [address] [place] [address] * ECG 12 lead (02/15/2025 9:59 PM CDT) 02/15/2025 9:59 PM CDT Narrative [facility] - 02/17/2025 6:45 AM CDT Vent Rate: 75 bpm RR Interval: 794 msec [place] Interval: 164 msec QRS Duration: 99 msec QT Interval: 446 msec QTC Interval: 475 msec P-R-T [place]: 40 - -7 - 19 degrees IMPRESSION: SINUS RHYTHM PROLONGED QT INTERVAL ABNORMAL ECG Compared to prior EKG, QT interval has increased Electronically Signed By: Ariel Lanier MD us Marlon Capps MD ECG ORDERABLES Final Result [facility] * Lactate (02/15/2025 9:40 PM CDT) Lactate 0.7 0.7 - 2.0 mmol/L Blood 02/15/2025 9:40 PM CDT 02/15/2025 9:50 PM CDT Marlon Capps MD LAB BLOOD ORDERABLES Final R esult [facility] ([place]) [address] [facility] [place] [address] * eGFR (02/15/2025 9:40 PM CDT) eGFR >90 >=60 mL/min/1. 73 m2 Comment: Interpretive Data Reference Interval Normal >/= 90 mL/min/1.73m2 Mildly decreased* 60 - 89 mL/min/1.73m2 Mildly to moderately decreased 45 - 59 mL/min/1.73m2 Moderately to severely decreased 30 - 44 mL/min/1.73m2 Severely decreased 15 - 29 mL/min/1.73m2 Kidney Failure < 15 mL/min/1.73m2 *Relative to young adult level Estimated glomerular filtration rate is determined by the 2020 CKD-EPI equation recommended by the National Kidney Foundation (A Unifying Approach to GFR Estimation: Recommendations of the NKF-ASK Task Force on Reassessing the Inclusion of Race in Diagnosing Kidney Disease, JASN 2020). The CKD-EPI equation should not be used for patients with unstable renal function and has not been validated in children and those over 70. Current interpretive data was last reviewed 2021. Blood 02/15/2025 9:40 PM CDT 02/15/2025 9:50 PM CDT us Marlon Capps MD LAB BLOOD ORDERABLES Final R esult [facility] ([place]) [facility] [place] [address] * Differential, auto (02/15/2025 9:40 PM CDT) Neutrophil abs 4.37 1.50 - 6.50 K/cumm Imm gran abs 0.01 0.00 - 0.10 K/cumm [facility] ([place]) Lymphocyte abs 1.24 0.80 - 3.30 K/cumm [facility] ([place]) Monocyte abs 0.49 0.20 - 0.80 K/cumm [facility] ([place]) Eosinophil abs 0.05 0.00 - 0.50 K/cumm [facility] ([place]) Basophil abs 0.03 0.00 - 0.10 K/cumm [facility] ([place]) Neutrophil pct 70.6 % [facility] ([place]) Comment: Interpretive Data Percent cell count reference ranges are not reported, since discordance with absolute values may lead to misinterpretation of CBC data. Current Interpretive Data was last revised on 2017. Imm gran pct 0.2 % [facility] ([place]) Comment: Interpretive Data Percent cell count reference ranges are not reported, since discordance with absolute values may lead to misinterpretation of CBC data. Current Interpretive Data was last revised on 2017. Lymphocyte pct 20.0 % [facility] ([place]) Comment: Interpretive Data Percent cell count reference ranges are not reported, since discordance with absolute values may lead to misinterpretation of CBC data. Current Interpretive Data was last revised on 2017. Monocyte pct 7.9 % [facility] ([place]) Comment: Interpretive Data Percent cell count reference ranges are not reported, since discordance with absolute values may lead to misinterpretation of CBC data. Current Interpretive Data was last revised on 2017. Eosinophil pct 0.8 % [facility] ([place]) Comment: Interpretive Data Percent cell count reference ranges are not reported, since discordance with absolute values may lead to misinterpretation of CBC data. Current Interpretive Data was last revised on 2017. Basophil pct 0.5 % [facility] ([place]) Comment: Interpretive Data Percent cell count reference ranges are not reported, since discordance with absolute values may lead to misinterpretation of CBC data. Current Interpretive Data was last revised on 2017. Blood 02/15/2025 9:40 PM CDT 02/15/2025 9:50 PM CDT Marlon Capps MD LAB BLOOD ORDERABLES Final R esult Performing Organization Address City/[facility]/ZIP Co de Phone Number [facility] ([place]) 1 [facility] [place] [address] * (ABNORMAL) Thyroid Function Camas (02/15/2025 9:40 PM CDT) Pathologist [facility] TSH 4.53(H) 0.30 - 4.20 mcIUnit/mL Blood 02/15/2025 9:40 PM CDT 02/15/2025 9:50 PM CDT Marlon Capps MD LAB BLOOD ORDERABLES Final R esult Performing Organization Address City/[facility]/ZIP Co de Phone Number [facility] ([place]) 1 [facility] [place] [address] * (ABNORMAL) CBC with auto differential (02/15/2025 9:40 PM CDT) Pathologist [facility] WBC 6.19 3.80 - 9.90 K/cumm Hgb 9.5(L) 11.9 - 15.5 g/dL [facility] ([place]) Hct 30.2(L) 35.6 - 45.5 % [facility] Plt 231 150 - 400 K/cumm [facility] ([place]) MPV 9.0(L) 9.1 - 12.3 fL [facility] ([place]) RBC 3.72(L) 3.90 - 5.20 M/cumm [facility] ([place]) MCV 81.2(L) 81.3 - 96.4 fL [facility] MCH 25.5(L) 27.1 - 33.3 pg [facility] ([place]) MCHC 31.5(L) 32.3 - 35.7 g/dL [facility] ([place]) RDW CV 19.1(H) 11.1 - 14.9 % [facility] ([place]) RDW SD 56.5(H) 35.7 - 48.1 fL [facility] ([place]) NRBC abs 0.00 0.00 - 0.01 K/cumm [facility] ([place]) Blood 02/15/2025 9:40 PM CDT 02/15/2025 9:50 PM CDT Marlon Capps MD LAB BLOOD ORDERABLES Final R esult Performing Organization Address City/[facility] Co de Phone Number [facility] ([place]) [address] [place] [address] * hCG, blood, quantitative (02/15/2025 9:40 PM CDT) [facility] hCG, quant <5.0 0.0 - 5.0 IUnits/L Comment: Interpretive Data Male: < 5 IU/L Non- premenopausal Female: <5 IU/L The Viki hCG Beta Quant assay procedure was used. Results from different manufacturers or methods may not be comparable. Serial testing should be performed using the same method. Interpretive Data was last revised on 2023 Blood 02/15/2025 9:40 PM CDT 02/15/2025 9:50 PM CDT Marlon Capps MD LAB BLOOD ORDERABLES Final R esult [facility] ([place]) 1 [facility] [place] [address] * T4, free (02/15/2025 9:40 PM CDT) [facility] Free T4 1.13 0.90 - 1.70 ng/dL Blood 02/15/2025 9:40 PM CDT 02/15/2025 9:50 PM CDT Narrative [facility] ([place]) - 02/15/2025 11:48 PM CDT This test was reflexed from a TSH result. us Marlon Capps MD LAB BLOOD ORDERABLES Final R esult Performing Organization Address [facility] Co de Phone Number [facility] ([place]) 1 [facility] [place] [address] * Phosphorus (02/15/2025 9:40 PM CDT) Phosphorus, pl 3.4 2.3 - 4.5 mg/dL Blood 02/15/2025 9:40 PM CDT 02/15/2025 9:50 PM CDT Marlon Capps MD LAB BLOOD ORDERABLES Final R esult Performing Organization Address [facility] Co de Phone Number [facility] ([place]) 1 [facility] [place] [address] * Magnesium (02/15/2025 9:40 PM CDT) Magnesium 1.9 1.4 - 2.5 mg/dL Blood 02/15/2025 9:40 PM CDT 02/15/2025 9:50 PM CDT Marlon Capps MD LAB BLOOD ORDERABLES Final R esult Performing Organization Address [facility] Co de Phone Number [facility] ([place]) 1 [facility] [place] [address] * Blood gas, venous (02/15/2025 9:40 PM CDT) pH, Venous 7.38 7.32 - 7.43 PCO2, Venous 45 40 - 50 mmHg [facility] ([place]) PO2, Venous 56 mmHg [facility] ([place]) Comment: Interpretive Data No reference range established. Current interpretive data was last revised 2017. HCO3 Venous, Calculated 26 20 - 30 mmol/L [facility] ([place]) BE, venous 2 mmol/L [facility] ([place]) Comment: Interpretive Data No Reference Range Established Current Interpretive Data was last revised on 2017. Blood 02/15/2025 9:40 PM CDT 02/15/2025 9:50 PM CDT Marlon Capps MD LAB BLOOD ORDERABLES Final R esult [facility] ([place]) 1 [facility] [place] [address] * Ethanol (02/15/2025 9:40 PM CDT) Ethanol <10 <=10 mg/dL Comment: Interpretive Data Legal limit of intoxication > or = 80 mg/dL Levels > or = 400 mg/dL are potentially TOXIC. Current interpretive data was last revised on 2018. Blood 02/15/2025 9:40 PM CDT 02/15/2025 9:50 PM CDT Marlon Capps MD LAB BLOOD ORDERABLES Final R esult [facility] ([place]) 1 [facility] [place] [address] * (ABNORMAL) Valproic acid level, total (02/15/2025 9:40 PM CDT) Valproic Acid <3.0(L) 50.0 - 100.0 mcg/mL Comment: Interpretive Data Therapeutic range: 50-100 mcg/mL Current interpretive data was last revised on 2014 Blood 02/15/2025 9:40 PM CDT 02/15/2025 9:50 PM CDT us Marlon Capps MD LAB BLOOD ORDERABLES Final R esult [facility] ([place]) [address] [facility] [place] [address] * Comprehensive metabolic panel (02/15/2025 9:40 PM CDT) Sodium 136 135 - 145 mmol/L Potassium, pl 3.9 3.3 - 4.9 mmol/L [facility] ([place]) Chloride 99 97 - 110 mmol/L [facility] ([place]) CO2 23 22 - 32 mmol/L [facility] ([place]) Anion gap 13 2 - 15 mmol/L [facility] ([place]) BUN 7 6 - 25 mg/dL [facility] ([place]) Creatinine 0.75 0.60 - 1.10 mg/dL [facility] ([place]) Glucose 101 70 - 199 mg/dL [facility] ([place]) Comment: Interpretive Data Fasting glucose >/= 126 mg/dl is diagnostic for diabetes. Fasting is defined as no caloric intake for at least 8 hours. Fasting glucose between 100 mg/dl to 125 mg/dl is diagnostic of prediabetes. In a patient with classic symptoms of hyperglycemia or hyperglycemic crisis, a random glucose >/= 200 mg/dl is diagnostic for diabetes. In the absence of unequivocal hyperglycemia, results should be confirmed by repeat testing. The classification and Diagnosis of Diabetes Diabetes Care 2021; 46: S19-S40. Current interpretive data was last revised 2022. Calcium 8.8 8.5 - 10.3 mg/dL [facility] ([place]) Bilirubin, total 0.5 0.1 - 1.2 mg/dL [facility] ([place]) Protein, pl 6.6 6.5 - 8.5 g/dL [facility] ([place]) Albumin 4.2 3.5 - 5.0 g/dL [facility] ([place]) Alk phos 121 40 - 130 Units/L [facility] ([place]) ALT 15 7 - 45 Units/L [facility] ([place]) AST 19 10 - 45 Units/L [facility] ([place]) Blood 02/15/2025 9:40 PM CDT 02/15/2025 9:50 PM CDT us Marlon Capps MD LAB BLOOD ORDERABLES Final R esult [facility] ([place]) 1 [facility] [place] [address] * POCT glucose (02/15/2025 9:11 PM CDT) Glucose, POC 110 70 - 199 mg/dL Blood 02/15/2025 9:11 PM CDT 02/15/2025 9:11 PM CDT Phani Hobbs MD LAB POCT ORDERABLES - KELSEA CE Final Result Performing Organization Address City/[facility] Co de Phone Number [facility] ([place]) 1 [facility] [place] [address] * POCT glucose (02/15/2025 8:04 PM CDT) Glucose, POC 102 70 - 199 mg/dL Blood 02/15/2025 8:04 PM CDT 02/15/2025 8:04 PM CDT Quincy Hubbard MD LAB POCT ORDERABLES - DEVICE Final Result Performing Organization Address City/[facility]/ZIP Co de Phone Number [facility] ([place]) [address] [place] [address] [place] [address] * eGFR (02/15/2025 11:09 AM CDT) eGFR >90 >=60 mL/min/1. 73 m2 Comment: Interpretive Data Reference Interval Normal >/= 90 mL/min/1.73m2 Mildly decreased* 60 - 89 mL/min/1.73m2 Mildly to moderately decreased 45 - 59 mL/min/1.73m2 Moderately to severely decreased 30 - 44 mL/min/1.73m2 Severely decreased 15 - 29 mL/min/1.73m2 Kidney Failure < 15 mL/min/1.73m2 *Relative to young adult level Estimated glomerular filtration rate is determined by the 2020 CKD-EPI equation recommended by the National Kidney Foundation (A Unifying Approach to GFR Estimation: Recommendations of the NKF-ASK Task Force on Reassessing the Inclusion of Race in Diagnosing Kidney Disease, JASN 2020). The CKD-EPI equation should not be used for patients with unstable renal function and has not been validated in children and those over 70. Current interpretive data was last reviewed 2021. Blood 02/15/2025 11:0 9 AM CDT 02/15/2025 11:21 AM CDT us Yenifer Reagan MD LAB BLOOD ORDERABLES Final Re sult [facility] ([place]) [address] [facility] [place] [address] * (ABNORMAL) Drugs of Abuse Screen, Urine without Confirmation (02/15/2025 11:09 AM CDT) Pathologist [facility] Amphetamine, ur Not Detected CutOff 500ng/mL Comment: Interpretive Data - Amphetamines: Samples containing greater than 500 ng/mL d-methamphetamine or other cross-reacting amphetamine compounds are reported as positive. Amphetamine immunoassays are subject to significant false positive rates due to cross-reactivity of non-amphetamine drugs. Confirmatory testing required for definitive results. Current Interpretive Data was last reviewed 2023. Barbiturates, ur Not Detected CutOff 200ng/mL [facility] ([place]) Comment: Interpretive Data - Barbiturates: Samples containing greater than 200 ng/mL secobarbital or other cross-reacting barbiturate compounds are reported as positive. False positive and false negative results are possible. Confirmatory testing required for definitive results. Current Interpretive Data was last reviewed 2023. Benzodiazepines, ur Screen Positive, presumptive (A) CutOff 100ng/mL [facility] ([place]) Comment: Interpretive Data - Benzodiazepines: Samples containing greater than 100 ng/mL nordiazepam or other cross-reacting compounds are reported as positive. False positive and false negative results are possible. Confirmatory testing required for definitive results. Current Interpretive Data was last reviewed 2023. Cannabinoids, ur Screen Positive, presumptive (A) CutOff 50 ng/mL [facility] ([place]) Comment: Interpretive Data - Cannabinoids: Samples containing greater than 50 ng/mL delta-9 THC -COOH or other cross- reacting compounds are reported as positive. False positive and false negative results are possible. Confirmatory testing required for definitive results. Current Interpretive Data was last reviewed 2023. Cocaine, ur Not Detected CutOff 150ng/mL [facility] ([place]) Comment: Interpretive Data - Cocaine: Samples containing greater than 150 ng/mL benzoylecgonine or other cross- reacting compounds are reported as positive. False positive and false negative results are possible. Confirmatory testing required for definitive results. Current Interpretive Data was last reviewed 2023. Fentanyl, Ur Not Detected CutOff 5 ng/mL [facility] ([place]) Comment: Interpretive Data - Fentanyl: Samples containing greater than 5 ng/mL norfentanyl, fentanyl, or other cross-reacting fentanyl compounds are reported as positive. False positive and false negative results are possible. Confirmatory testing required for definitive results. Current Interpretive Data was last reviewed 2023. Methadone, ur Not Detected CutOff 300ng/mL [facility] ([place]) Comment: Interpretive Data - Methadone: Samples containing greater than 300 ng/mL d,l-methadone or other cross-reacting compounds are reported as positive. False positive and false negative results are possible. Confirmatory testing required for definitive results. Current Interpretive Data was last reviewed 2023. Opiates, ur Not Detected CutOff 300ng/mL [facility] ([place]) Comment: Interpretive Data - Opiates: Samples containing greater than 300 ng/mL morphine or other cross-reacting compounds are reported as positive. False positive and false negative results are possible. Confirmatory testing required for definitive results. Current Interpretive Data was last reviewed 2023. Oxycodone, ur Not Detected CutOff 100ng/mL [facility] ([place]) Comment: Interpretive Data - Oxycodone: Samples containing greater than 100 ng/mL oxycodone or other cross-reacting compounds are reported as positive. False positive and false negative results are possible. Confirmatory testing required for definitive results. Current Interpretive Data was last reviewed 2023. Phencyclidine, ur Not Detected CutOff 25 ng/mL [facility] ([place]) Comment: Interpretive Data - Phencyclidine: Samples containing greater than 25 ng/mL phencyclidine or other cross-reacting compounds are reported as positive. False positive and false negative results are possible. Confirmatory testing required for definitive results. Current Interpretive Data was last reviewed 2023. Urine Creatinine 156 mg/dL [facility] ([place]) Comment: Interpretive Data Urine Creatinine: < 10 mg/dL is extremely dilute = or > 10 but < 20 mg/dL is dilute = or > 20 mg/dL is normal Current Interpretive Data was last revised on 2017. Urine 02/15/2025 11:0 9 AM CDT 02/15/2025 11:22 AM CDT Narrative [facility] ([place]) - 02/15/2025 11:48 AM CDT Drug of Abuse screening is performed by immunoassay for medical purposes only. This is not to be used for Pain Management purposes. Yenifer Reagan MD LAB URINE ORDERABLES Final Re sult [facility] ([place]) [address] [facility] [place] [address] * (ABNORMAL) CBC without differential (02/15/2025 11:09 AM CDT) WBC 4.15 3.80 - 9.90 K/cumm Hgb 10.3(L) 11.9 - 15.5 g/dL [facility] ([place]) Hct 33.4(L) 35.6 - 45.5 % [facility] ([place]) Plt 283 150 - 400 K/cumm [facility] ([place]) MPV 9.4 9.1 - 12.3 fL [facility] ([place]) RBC 4.13 3.90 - 5.20 M/cumm [facility] ([place]) MCV 80.9(L) 81.3 - 96.4 fL [facility] ([place]) MCH 24.9(L) 27.1 - 33.3 pg [facility] ([place]) MCHC 30.8(L) 32.3 - 35.7 g/dL [facility] ([place]) RDW CV 18.8(H) 11.1 - 14.9 % [facility] ([place]) RDW SD 55.2(H) 35.7 - 48.1 fL [facility] ([place]) NRBC abs 0.00 0.00 - 0.01 K/cumm [facility] ([place]) Blood 02/15/2025 11:0 9 AM CDT 02/15/2025 11:21 AM CDT us Yenifer Reagan MD LAB BLOOD ORDERABLES Final Re sult [facility] ([place]) [address] [facility] [place] [address] * (ABNORMAL) Comprehensive metabolic panel (02/15/2025 11:09 AM CDT) Sodium 139 135 - 145 mmol/L Potassium, pl 4.3 3.3 - 4.9 mmol/L [facility] Chloride 100 97 - 110 mmol/L [facility] CO2 20(L) 22 - 32 mmol/L [facility] Anion gap 20(H) 2 - 15 mmol/L [facility] BUN 7 6 - 25 mg/dL [facility] Creatinine 0.67 0.60 - 1.10 mg/dL [facility] Glucose 80 70 - 199 mg/dL [facility] ([place]) Comment: Interpretive Data Fasting glucose >/= 126 mg/dl is diagnostic for diabetes. Fasting is defined as no caloric intake for at least 8 hours. Fasting glucose between 100 mg/dl to 125 mg/dl is diagnostic of prediabetes. In a patient with classic symptoms of hyperglycemia or hyperglycemic crisis, a random glucose >/= 200 mg/dl is diagnostic for diabetes. In the absence of unequivocal hyperglycemia, results should be confirmed by repeat testing. The classification and Diagnosis of Diabetes Diabetes Care 2021; 46: S19-S40. Current interpretive data was last revised 2022. Calcium 9.1 8.5 - 10.3 mg/dL [facility] ([place]) Bilirubin, total 0.3 0.1 - 1.2 mg/dL [facility] ([place]) Protein, pl 6.8 6.5 - 8.5 g/dL [facility] ([place]) Albumin 4.6 3.5 - 5.0 g/dL [facility] ([place]) Alk phos 125 40 - 130 Units/L [facility] ([place]) ALT 19 7 - 45 Units/L [facility] AST 30 10 - 45 Units/L [facility] ([place]) Comment:Slightly Hemolyzed S pecimen Blood 02/15/2025 11:0 9 AM CDT 02/15/2025 11:21 AM CDT us Yenifer Reagan MD LAB BLOOD ORDERABLES Final Re sult [facility] ([place]) 1 [facility] [place] [address] * Sepsis Lactate w/ Reflex (01/31/2025 2:21 PM CDT) [facility] Sepsis Lactate 0.9 0.7 - 2.0 mmol/L Blood 01/31/2025 2:21 PM CDT 01/31/2025 2:26 PM CDT us Chhyaa HANKINS LAB BLOOD ORDERABLES Final Resu lt [facility] ([place]) 1 [facility] [place] [address] * eGFR (01/31/2025 2:21 PM CDT) Pathologist [facility] eGFR >90 >=60 mL/min/1. 73 m2 Comment: Interpretive Data Reference Interval Normal >/= 90 mL/min/1.73m2 Mildly decreased* 60 - 89 mL/min/1.73m2 Mildly to moderately decreased 45 - 59 mL/min/1.73m2 Moderately to severely decreased 30 - 44 mL/min/1.73m2 Severely decreased 15 - 29 mL/min/1.73m2 Kidney Failure < 15 mL/min/1.73m2 *Relative to young adult level Estimated glomerular filtration rate is determined by the 2020 CKD-EPI equation recommended by the National Kidney Foundation (A Unifying Approach to GFR Estimation: Recommendations of the NKF-ASK Task Force on Reassessing the Inclusion of Race in Diagnosing Kidney Disease, JASN 2020). The CKD-EPI equation should not be used for patients with unstable renal function and has not been validated in children and those over 70. Current interpretive data was last reviewed 2021. Blood 01/31/2025 2:21 PM CDT 01/31/2025 2:26 PM CDT us Chhaya HANKINS LAB BLOOD ORDERABLES Final Resu lt [facility] ([place]) [address] [facility] [place] [address] * Differential, auto (01/31/2025 2:21 PM CDT) Neutrophil abs 5.99 1.50 - 6.50 K/cumm Imm gran abs 0.03 0.00 - 0.10 K/cumm [facility] ([place]) Lymphocyte abs 1.03 0.80 - 3.30 K/cumm [facility] ([place]) Monocyte abs 0.48 0.20 - 0.80 K/cumm [facility] ([place]) Eosinophil abs 0.09 0.00 - 0.50 K/cumm [facility] ([place]) Basophil abs 0.04 0.00 - 0.10 K/cumm [facility] ([place]) Neutrophil pct 78.2 % [facility] ([place]) Comment: Interpretive Data Percent cell count reference ranges are not reported, since discordance with absolute values may lead to misinterpretation of CBC data. Current Interpretive Data was last revised on 2017. Imm gran pct 0.4 % [facility] ([place]) Comment: Interpretive Data Percent cell count reference ranges are not reported, since discordance with absolute values may lead to misinterpretation of CBC data. Current Interpretive Data was last revised on 2017. Lymphocyte pct 13.4 % [facility] ([place]) Comment: Interpretive Data Percent cell count reference ranges are not reported, since discordance with absolute values may lead to misinterpretation of CBC data. Current Interpretive Data was last revised on 2017. Monocyte pct 6.3 % [facility] ([place]) Comment: Interpretive Data Percent cell count reference ranges are not reported, since discordance with absolute values may lead to misinterpretation of CBC data. Current Interpretive Data was last revised on 2017. Eosinophil pct 1.2 % [facility] ([place]) Comment: Interpretive Data Percent cell count reference ranges are not reported, since discordance with absolute values may lead to misinterpretation of CBC data. Current Interpretive Data was last revised on 2017. Basophil pct 0.5 % [facility] ([place]) Comment: Interpretive Data Percent cell count reference ranges are not reported, since discordance with absolute values may lead to misinterpretation of CBC data. Current Interpretive Data was last revised on 2017. Blood 01/31/2025 2:21 PM CDT 01/31/2025 2:26 PM CDT us Chhaya HANKINS LAB BLOOD ORDERABLES Final Resu lt [facility] ([place]) [address] [facility] [place] [address] * (ABNORMAL) CBC with auto differential (01/31/2025 2:21 PM CDT) WBC 7.66 3.80 - 9.90 K/cumm Hgb 9.3(L) 11.9 - 15.5 g/dL [facility] ([place]) Hct 30.9(L) 35.6 - 45.5 % [facility] ([place]) Plt 291 150 - 400 K/cumm [facility] ([place]) MPV 9.8 9.1 - 12.3 fL [facility] ([place]) RBC 3.83(L) 3.90 - 5.20 M/cumm [facility] ([place]) MCV 80.7(L) 81.3 - 96.4 fL [facility] ([place]) MCH 24.3(L) 27.1 - 33.3 pg [facility] ([place]) MCHC 30.1(L) 32.3 - 35.7 g/dL [facility] ([place]) RDW CV 18.5(H) 11.1 - 14.9 % [facility] ([place]) RDW SD 54.3(H) 35.7 - 48.1 fL [facility] ([place]) NRBC abs 0.00 0.00 - 0.01 K/cumm [facility] ([place]) Blood 01/31/2025 2:21 PM CDT 01/31/2025 2:26 PM CDT us Chhaya HANKINS LAB BLOOD ORDERABLES Final Resu lt [facility] ([place]) [address] [facility] [place] [address] * (ABNORMAL) Comprehensive metabolic panel (01/31/2025 2:21 PM CDT) Sodium 138 135 - 145 mmol/L Potassium, pl 4.0 3.3 - 4.9 mmol/L [facility] ([place]) Chloride 102 97 - 110 mmol/L [facility] ([place]) CO2 25 22 - 32 mmol/L [facility] ([place] Anion gap 11 2 - 15 mmol/L [facility] ([place]) BUN 11 6 - 25 mg/dL [facility] (BERTIN) Creatinine 0.75 0.60 - 1.10 mg/dL [facility] ([facility]) Glucose 99 70 - 199 mg/dL [facility] ([place]) Comment: Interpretive Data Fasting glucose >/= 126 mg/dl is diagnostic for diabetes. Fasting is defined as no caloric intake for at least 8 hours. Fasting glucose between 100 mg/dl to 125 mg/dl is diagnostic of prediabetes. In a patient with classic symptoms of hyperglycemia or hyperglycemic crisis, a random glucose >/= 200 mg/dl is diagnostic for diabetes. In the absence of unequivocal hyperglycemia, results should be confirmed by repeat testing. The classification and Diagnosis of Diabetes Diabetes Care 202; 46: S19-S40. Current interpretive data was last revised 2022. Calcium 9.1 8.5 - 10.3 mg/dL [facility] (BERTIN) Bilirubin, total 0.2 0.1 - 1.2 mg/dL [facility] ([place]) Protein, pl 6.9 6.5 - 8.5 g/dL [facility] ([place]) Albumin 4.1 3.5 - 5.0 g/dL [facility] ([place]) Alk phos 133(H) 40 - 130 Units/L [facility] ([place]) ALT 24 7 - 45 Units/L [facility] ([place]) AST 18 10 - 45 Units/L [facility] ([place]) Blood 01/31/2025 2:21 PM CDT 01/31/2025 2:26 PM CDT Chhaya HANKINS LAB BLOOD ORDERABLES Final Resu lt Performing Organization Address City/[facility]/ZIP Co de Phone Number [facility] ([place]ERTIN) [address] [facility] [place] [address] * ECG 12 lead (01/31/2025 1:34 PM CDT) 01/31/2025 1:34 PM CDT Narrative [facility] - 01/31/2025 6:19 PM CDT Vent Rate: 73 bpm RR Interval: 817 msec [place] Interval: 157 msec QRS Duration: 93 msec QT Interval: 425 msec QTC Interval: 451 msec P-R-T [place]: 63 - 8 - 45 degrees IMPRESSION: SINUS RHYTHM NORMAL ECG Compared to prior EKG, heart rate has decreased Electronically Signed By: Ariel Lanier MD Chhaya HANKINS ECG ORDERABLES Final Result Performing Organization Address City/[facility]/ZIP Co de Phone Number [facility] [employer] [facility] * IR Port Removal (01/10/2025 9:10 AM CDT) Anatomical Region Laterality Modality Body N/A Radio Fluoroscop y 01/10/2025 11:1 0 AM CDT Impressions 01/10/2025 11:10 AM CDT Successful port removal. PLAN: If a new port is desired, recommend waiting 2 weeks to allow the right chest site to heal before placement of a new port. Electronically signed by: Saumel Mustafa PA-C Narrative 01/10/2025 11:10 AM CDT EXAMINATION: PORT REMOVAL HISTORY: 29-year-old female presenting for port removal. Patient has a right chest port in place which she uses for iron infusions. The port has become increasingly difficult to access because it is positioned deep on the chest wall. PROVIDER PRESENCE: Samuel Mustafa PA-C, was present from the beginning to the end of the procedure. SEDATION: The patient did not require conscious sedation. TECHNIQUE: The risks, benefits and alternatives were discussed and informed consent was obtained. Prior to beginning the procedure, [place] Protocol was used to confirm the patient's identity and planned procedure. Fluoroscopy time has been recorded in the electronic medical record. Maximum sterile barriers including cap, mask, hand hygiene, sterile gloves, sterile gown, large sterile drape and 2% chlorhexidine for cutaneous antisepsis were used. A fluoroscopic image was recorded prior to the beginning of the procedure. The skin adjacent to the right chest wall port was sterilely prepped, draped and infiltrated with 1% lidocaine. After making a short transverse incision, the port reservoir was freed using a combination of sharp and blunt dissection. The catheter was then removed. A fluoroscopic image was recorded following removal of the port. The deep tissues were approximated using 2-0 Vicryl suture and 4-0 Monocryl and the incision closed using skin glue. ESTIMATED BLOOD LOSS: Minimal. CONDITION: Stable DISCHARGED TO: home FINDINGS: The port site showed no purulence or other evidence of infection. Procedure Note Samuel Mustafa PA - 01/10/2025 EXAMINATION: PORT REMOVAL HISTORY: 29-year-old female presenting for port removal. Patient has a right chest port in place which she uses for iron infusions. The port has become increasingly difficult to access because it is positioned deep on the chest wall. PROVIDER PRESENCE: Samuel Mustafa PA-C, was present from the beginning to the end of the procedure. SEDATION: The patient did not require conscious sedation. TECHNIQUE: The risks, benefits and alternatives were discussed and informed consent was obtained. Prior to beginning the procedure, [place] Protocol was used to confirm the patient's identity and planned procedure. Fluoroscopy time has been recorded in the electronic medical record. Maximum sterile barriers including cap, mask, hand hygiene, sterile gloves, sterile gown, large sterile drape and 2% chlorhexidine for cutaneous antisepsis were used. A fluoroscopic image was recorded prior to the beginning of the procedure. The skin adjacent to the right chest wall port was sterilely prepped, draped and infiltrated with 1% lidocaine. After making a short transverse incision, the port reservoir was freed using a combination of sharp and blunt dissection. The catheter was then removed. A fluoroscopic image was recorded following removal of the port. The deep tissues were approximated using 2-0 Vicryl suture and 4-0 Monocryl and the incision closed using skin glue. ESTIMATED BLOOD LOSS: Minimal. CONDITION: Stable DISCHARGED TO: home FINDINGS: The port site showed no purulence or other evidence of infection. IMPRESSION: Successful port removal. PLAN: If a new port is desired, recommend waiting 2 weeks to allow the right chest site to heal before placement of a new port. Electronically signed by: Samuel Mustafa PA-C Destiny Alfaro NP IMG IR PROCEDURES Final Resul t * Sepsis Lactate w/ Reflex (01/05/2025 2:04 PM CDT) Pathologist [facility] Sepsis Lactate 1.7 0.7 - 2.0 mmol/L Blood 01/05/2025 2:04 PM CDT 01/05/2025 2:09 PM CDT José Miguel Anders MD LAB BLOOD ORDERABLES Final Res ult [facility] [place] [address] [facility] [place] [address] * eGFR (01/05/2025 2:04 PM CDT) Pathologist [facility] eGFR 89 >=60 mL/min/1. 73 m2 Comment: Interpretive Data Reference Interval Normal >/= 90 mL/min/1.73m2 Mildly decreased* 60 - 89 mL/min/1.73m2 Mildly to moderately decreased 45 - 59 mL/min/1.73m2 Moderately to severely decreased 30 - 44 mL/min/1.73m2 Severely decreased 15 - 29 mL/min/1.73m2 Kidney Failure < 15 mL/min/1.73m2 *Relative to young adult level Estimated glomerular filtration rate is determined by the 2020 CKD-EPI equation recommended by the National Kidney Foundation (A Unifying Approach to GFR Estimation: Recommendations of the NKF-ASK Task Force on Reassessing the Inclusion of Race in Diagnosing Kidney Disease, JASN 2020). The CKD-EPI equation should not be used for patients with unstable renal function and has not been validated in children and those over 70. Current interpretive data was last reviewed 2021. Blood 01/05/2025 2:04 PM CDT 01/05/2025 2:09 PM CDT us José Miguel Anders MD LAB BLOOD ORDERABLES Final Res ult [facility] ([place]) [address] [facility] [place] [address] * Differential, auto (01/05/2025 2:04 PM CDT) Neutrophil abs 3.70 1.50 - 6.50 K/cumm Imm gran abs 0.05 0.00 - 0.10 K/cumm [facility] (BERTIN) Lymphocyte abs 1.12 0.80 - 3.30 K/cumm [facility] ([facility]ERT[place]) Monocyte abs 0.47 0.20 - 0.80 K/cumm [facility] (BETRIN) Eosinophil abs 0.11 0.00 - 0.50 K/cumm [facility] (BERT[place]) Basophil abs 0.03 0.00 - 0.10 K/cumm [facility] ([place]) Neutrophil pct 67.6 % [facility] (BERTIN) Comment: Interpretive Data Percent cell count reference ranges are not reported, since discordance with absolute values may lead to misinterpretation of CBC data. Current Interpretive Data was last revised on 2017. Imm gran pct 0.9 % [facility] ([place]) Comment: Interpretive Data Percent cell count reference ranges are not reported, since discordance with absolute values may lead to misinterpretation of CBC data. Current Interpretive Data was last revised on 2017. Lymphocyte pct 20.4 % [facility] (BERTIN) Comment: Interpretive Data Percent cell count reference ranges are not reported, since discordance with absolute values may lead to misinterpretation of CBC data. Current Interpretive Data was last revised on 2017. Monocyte pct 8.6 % [facility] (BERTIN) Comment: Interpretive Data Percent cell count reference ranges are not reported, since discordance with absolute values may lead to misinterpretation of CBC data. Current Interpretive Data was last revised on 2017. Eosinophil pct 2.0 % [facility] (BERT[place]) Comment: Interpretive Data Percent cell count reference ranges are not reported, since discordance with absolute values may lead to misinterpretation of CBC data. Current Interpretive Data was last revised on 2017. Basophil pct 0.5 % [facility] (BERTIN) Comment: Interpretive Data Percent cell count reference ranges are not reported, since discordance with absolute values may lead to misinterpretation of CBC data. Current Interpretive Data was last revised on 2017. Blood 01/05/2025 2:04 PM CDT 01/05/2025 2:09 PM CDT us José Miguel Anders MD LAB BLOOD ORDERABLES Final Res ult [facility] (BERTIN) [address] [facility] [place] [address] * (ABNORMAL) CBC with auto differential (01/05/2025 2:04 PM CDT) WBC 5.48 3.80 - 9.90 K/cumm Hgb 8.2(L) 11.9 - 15.5 g/dL [facility] (BERTIN) Hct 27.2(L) 35.6 - 45.5 % [facility] (BERTIN) Plt 306 150 - 400 K/cumm [facility] ([place]) MPV 9.2 9.1 - 12.3 fL [facility] ([facility]) RBC 3.38(L) 3.90 - 5.20 M/cumm [facility] ([place]) MCV 80.5(L) 81.3 - 96.4 fL [facility] ([place]) MCH 24.3(L) 27.1 - 33.3 pg [facility] ([place]) MCHC 30.1(L) 32.3 - 35.7 g/dL [facility] ([place]ERT[place]) RDW CV 21.4(H) 11.1 - 14.9 % [facility] ([place]) RDW SD 62.4(H) 35.7 - 48.1 fL [facility] ([place]) NRBC abs 0.00 0.00 - 0.01 K/cumm [facility] ([facility] Blood 01/05/2025 2:0 4 PM CDT 01/05/2025 2:09 PM CDT us José Miguel Anders MD LAB BLOOD ORDERABLES Final Res ult [facility] ([place]ERT[place]) [address] [facility] [place] [address] * Comprehensive metabolic panel (01/05/2025 2:04 PM CDT) Sodium 140 135 - 145 mmol/L Potassium, pl 3.6 3.3 - 4.9 mmol/L [facility] ([facility]) Chloride 102 97 - 110 mmol/L [facility] ([place]) CO2 24 22 - 32 mmol/L [facility] ([place]) Anion gap 14 2 - 15 mmol/L [facility] ([place]) BUN 12 6 - 25 mg/dL [facility] ([place]) Creatinine 0.89 0.60 - 1.10 mg/dL [facility] ([place]) Glucose 110 70 - 199 mg/dL [facility] ([place]) Comment: Interpretive Data Fasting glucose >/= 126 mg/dl is diagnostic for diabetes. Fasting is defined as no caloric intake for at least 8 hours. Fasting glucose between 100 mg/dl to 125 mg/dl is diagnostic of prediabetes. In a patient with classic symptoms of hyperglycemia or hyperglycemic crisis, a random glucose >/= 200 mg/dl is diagnostic for diabetes. In the absence of unequivocal hyperglycemia, results should be confirmed by repeat testing. The classification and Diagnosis of Diabetes Diabetes Care 2021; 46: S19-S40. Current interpretive data was last revised 2022. Calcium 8.5 8.5 - 10.3 mg/dL [facility] (BERT[place]) Bilirubin, total <0.2 0.1 - 1.2 mg/dL [facility] ([place]) Protein, pl 6.7 6.5 - 8.5 g/dL [facility] ([place]) Albumin 3.6 3.5 - 5.0 g/dL [facility] ([place]) Alk phos 108 40 - 130 Units/L [facility] ([place]) ALT 24 7 - 45 Units/L [facility] ([place]) AST 22 10 - 45 Units/L [facility] ([place]ERT[place]) Blood 01/05/2025 2:04 PM CDT 01/05/2025 2:09 PM CDT José Miguel Anders MD LAB BLOOD ORDERABLES Final Res ult Performing Organization Address City/[facility]/ZIP Co de Phone Number [facility] ([place]) [address] [facility] Department [place] [address] * Neuro MR Outside Reference (01/01/2025 7:06 PM CDT) Impressions [facility] - 01/01/2025 7:06 PM CDT These images are for Reference purposes only and have not been reviewed by [facility]iology. There will be no report generated by a [facility] Radiologist. Narrative [facility] - 01/01/2025 7:06 PM CDT EXAMINATION: Images For Reference Purposes Only Ming Mayer MD PhD IMG MRI PROCEDURES Final Result Performing Organization Address [facility]/ZIP Co de Phone Number [email or web address] * eGFR (12/30/2024 5:34 AM CDT) eGFR >90 >=60 mL/min/1. 73 m2 Comment: Interpretive Data Reference Interval Normal >/= 90 mL/min/1.73m2 Mildly decreased* 60 - 89 mL/min/1.73m2 Mildly to moderately decreased 45 - 59 mL/min/1.73m2 Moderately to severely decreased 30 - 44 mL/min/1.73m2 Severely decreased 15 - 29 mL/min/1.73m2 Kidney Failure < 15 mL/min/1.73m2 *Relative to young adult level Estimated glomerular filtration rate is determined by the 2020 CKD-EPI equation recommended by the National Kidney Foundation (A Unifying Approach to GFR Estimation: Recommendations of the NKF-ASK Task Force on Reassessing the Inclusion of Race in Diagnosing Kidney Disease, JASN 2020). The CKD-EPI equation should not be used for patients with unstable renal function and has not been validated in children and those over 70. Current interpretive data was last reviewed 2021. Blood 12/30/2024 5:34 AM CDT 12/30/2024 6:51 AM CDT Elisa Quiroz NP LAB BLOOD ORDERABLES Final R esult [facility] Department [place] [address] * (ABNORMAL) CBC without differential (12/30/2024 5:34 AM CDT) WBC 4.59 3.80 - 9.90 K/cumm Hgb 7.8(L) 11.9 - 15.5 g/dL [facility] Hct 25.3(L) 35.6 - 45.5 % [facility] Plt 170 150 - 400 K/cumm [facility] MPV 10.0 9.1 - 12.3 fL [facility] RBC 3.24(L) 3.90 - 5.20 M/cumm [facility] MCV 78.1(L) 81.3 - 96.4 fL [facility] MCH 24.1(L) 27.1 - 33.3 pg [facility] MCHC 30.8(L) 32.3 - 35.7 g/dL [facility] RDW CV 22.7(H) 11.1 - 14.9 % [facility] RDW SD 65.0(H) 35.7 - 48.1 fL [facility] NRBC abs 0.00 0.00 - 0.01 K/cumm [facility] Blood 12/30/2024 5:34 AM CDT 12/30/2024 6:51 AM CDT Elisa Quiroz NP LAB BLOOD ORDERABLES Final R esult [facility] Department [place] [address] * (ABNORMAL) Basic metabolic panel (12/30/2024 5:34 AM CDT) [facility] Sodium 140 135 - 145 mmol/L Potassium, pl 3.7 3.3 - 4.9 mmol/L [facility] Chloride 104 97 - 110 mmol/L [facility] CO2 27 22 - 32 mmol/L [facility] Anion gap 9 2 - 15 mmol/L [facility] BUN 13 6 - 25 mg/dL [facility] Creatinine 0.83 0.60 - 1.10 mg/dL [facility] Glucose 92 70 - 199 mg/dL [facility] Comment: Interpretive Data Fasting glucose >/= 126 mg/dl is diagnostic for diabetes. Fasting is defined as no caloric intake for at least 8 hours. Fasting glucose between 100 mg/dl to 125 mg/dl is diagnostic of prediabetes. In a patient with classic symptoms of hyperglycemia or hyperglycemic crisis, a random glucose >/= 200 mg/dl is diagnostic for diabetes. In the absence of unequivocal hyperglycemia, results should be confirmed by repeat testing. The classification and Diagnosis of Diabetes Diabetes Care 2021; 46: S19-S40. Current interpretive data was last revised 2022. Calcium 8.2(L) 8.5 - 10.3 mg/dL [facility] Blood 12/30/2024 5:34 AM CDT 12/30/2024 6:51 AM CDT Elisa Quiroz NP LAB BLOOD ORDERABLES Final R esult [facility] Department [place] [address] * Respiratory pathogen panel Nasopharyngeal (12/29/2024 11:58 AM CDT) Pathologist [facility] Influenza A RNA Not Detected Not Detected Influenza B RNA Not Detected Not Detected [facility] RSV RNA Not Detected Not Detected [facility] COVID-19 RNA Not Detected Not Detected [facility] Coronavirus 229E RNA Not Detected Not Detected [facility] Coronavirus HKU1 RNA Not Detected Not Detected [facility] Coronavirus NL63 RNA Not Detected Not Detected [facility] Coronavirus OC43 RNA Not Detected Not Detected [facility] Adenovirus DNA Not Detected Not Detected [facility] Metapneumovirus RNA Not Detected Not Detected [facility] Rhinovirus/Enterov irus RNA Not Detected Not Detected [facility] Parainfluenza 1 RNA Not Detected Not Detected [facility] Parainfluenza 2 RNA Not Detected Not Detected [facility] Parainfluenza 3 RNA Not Detected Not Detected [facility] Parainfluenza 4 RNA Not Detected Not Detected [facility] B. pertussis DNA Not Detected Not Detected [facility] B. parapertussis DNA Not Detected Not Detected [facility] C. pneumoniae DNA Not Detected Not Detected [facility] M. pneumoniae DNA Not Detected Not Detected [facility] Nasopharyngeal 12/29/2024 11 :58 AM CDT 12/29/2024 12:31 PM CDT Narrative [facility] - 12/29/2024 1:24 PM CDT Is the Patient experiencing symptoms consistent with COVID?->No Surveillance testing for transplant patient?->No Interpretive Data The [employer] FilmArray Respiratory Panel (RP2.1) assay is a multiplexed real-time PCR based nucleic acid test capable of simultaneous qualitative detection and identification of multiple respiratory viral and bacterial nucleic acids, including SARS Coronavirus 2 (the causative agent of COVID-19). The following bacteria, viruses and virus subtypes can be identified using the FilmArray RP2.1 assay: Bordetella pertussis, Bordetella parapertussis, Chlamydia pneumoniae, Mycoplasma pneumoniae, Adenovirus, SARS Coronavirus 2, seasonal coronaviruses (Coronavirus HKU1, Coronavirus NL63, Coronavirus 229E, and Coronavirus OC43), Influenza A, Influenza A subtype H1, Influenza A subtype H3, Influenza A subtype 2009 H1, Influenza B, Metapneumovirus, Parainfluenza 1, Parainfluenza 2, Parainfluenza 3, Parainfluenza 4, RSV, Rhinovirus/Enterovirus. Due to the genetic similarity between human Rhinovirus and Enterovirus, the FilmArray RP2.1 assay cannot reliably differentiate them. Coronavirus OC43 may cross-react with some isolates of Coronavirus HKU1. A dual positive result may be due to cross-reactivity or may indicate a co- infection. The detection and identification of specific viral and bacterial nucleic acids from individuals exhibiting signs and symptoms of a respiratory infection aids in the diagnosis of respiratory infection if used in conjunction with other clinical and epidemiological information. The results of this test should not be used as the sole basis for diagnosis, treatment, or other management decisions. Negative results in the setting of a respiratory illness may be due to infection with pathogens that are not detected by this test. Positive results do not rule out infection/co-infection with other organisms. The agent(s) detected by the FilmArray RP2.1 may not be the definite cause of disease. Additional testing (lab, imaging, etc.) may be necessary when evaluating a patient with possible respiratory tract infection. The FilmArray RP2.1 assay has FDA clearance for testing of [employer] swabs. The performance of additional specimen types has been assessed by the performing laboratory. The performance characteristics of this assay have been determined by [facility] Molecular Infectious Disease Laboratory. Current interpretive data was last revised on 22. us Katie Conteh MD LAB MICROBIOLOGY - GENERAL ORDER SHARON Final Result [facility] [place] [address] * eGFR (12/29/2024 6:25 AM CDT) eGFR >90 >=60 mL/min/1. 73 m2 Comment: Interpretive Data Reference Interval Normal >/= 90 mL/min/1.73m2 Mildly decreased* 60 - 89 mL/min/1.73m2 Mildly to moderately decreased 45 - 59 mL/min/1.73m2 Moderately to severely decreased 30 - 44 mL/min/1.73m2 Severely decreased 15 - 29 mL/min/1.73m2 Kidney Failure < 15 mL/min/1.73m2 *Relative to young adult level Estimated glomerular filtration rate is determined by the 2020 CKD-EPI equation recommended by the National Kidney Foundation (A Unifying Approach to GFR Estimation: Recommendations of the NKF-ASK Task Force on Reassessing the Inclusion of Race in Diagnosing Kidney Disease, JASN 2020). The CKD-EPI equation should not be used for patients with unstable renal function and has not been validated in children and those over 70. Current interpretive data was last reviewed 2021. Blood 12/29/2024 6:25 AM CDT 12/29/2024 6:50 AM CDT Elisa Quiroz NP LAB BLOOD ORDERABLES Final R esult [facility] Department [place] [address] * (ABNORMAL) CBC without differential (12/29/2024 6:25 AM CDT) WBC 5.64 3.80 - 9.90 K/cumm Hgb 8.5(L) 11.9 - 15.5 g/dL [facility] Hct 27.1(L) 35.6 - 45.5 % [facility] Plt 184 150 - 400 K/cumm [facility] MPV 9.5 9.1 - 12.3 fL [facility] RBC 3.54(L) 3.90 - 5.20 M/cumm [facility] MCV 76.6(L) 81.3 - 96.4 fL [facility] MCH 24.0(L) 27.1 - 33.3 pg [facility] MCHC 31.4(L) 32.3 - 35.7 g/dL [facility] RDW CV 22.8(H) 11.1 - 14.9 % [facility] RDW SD 62.5(H) 35.7 - 48.1 fL [facility] NRBC abs 0.00 0.00 - 0.01 K/cumm [facility] Blood 12/29/2024 6:25 AM CDT 12/29/2024 6:50 AM CDT Elisa Quiroz [employer] LAB BLOOD ORDERABLES Final R esult [facility] [place] [address] * Basic metabolic panel (12/29/2024 6:25 AM CDT) Sodium 142 135 - 145 mmol/L Potassium, pl 3.6 3.3 - 4.9 mmol/L [facility] Chloride 106 97 - 110 mmol/L [facility] CO2 27 22 - 32 mmol/L [facility] Anion gap 9 2 - 15 mmol/L [facility] BUN 11 6 - 25 mg/dL [facility] Creatinine 0.80 0.60 - 1.10 mg/dL [facility] Glucose 100 70 - 199 mg/dL [facility] Comment: Interpretive Data Fasting glucose >/= 126 mg/dl is diagnostic for diabetes. Fasting is defined as no caloric intake for at least 8 hours. Fasting glucose between 100 mg/dl to 125 mg/dl is diagnostic of prediabetes. In a patient with classic symptoms of hyperglycemia or hyperglycemic crisis, a random glucose >/= 200 mg/dl is diagnostic for diabetes. In the absence of unequivocal hyperglycemia, results should be confirmed by repeat testing. The classification and Diagnosis of Diabetes Diabetes Care 2021; 46: S19-S40. Current interpretive data was last revised 2022. Calcium 8.6 8.5 - 10.3 mg/dL [facility] Blood 12/29/2024 6:25 AM CDT 12/29/2024 6:50 AM CDT Elisa Quiroz NP LAB BLOOD ORDERABLES Final R esult Performing Organization Address City/[facility] Co de Phone Number [facility] Department [place] [address] * eGFR (12/29/2024 2:12 AM CDT) [facility] eGFR >90 >=60 mL/min/1. 73 m2 Comment: Interpretive Data Reference Interval Normal >/= 90 mL/min/1.73m2 Mildly decreased* 60 - 89 mL/min/1.73m2 Mildly to moderately decreased 45 - 59 mL/min/1.73m2 Moderately to severely decreased 30 - 44 mL/min/1.73m2 Severely decreased 15 - 29 mL/min/1.73m2 Kidney Failure < 15 mL/min/1.73m2 *Relative to young adult level Estimated glomerular filtration rate is determined by the 2020 CKD-EPI equation recommended by the National Kidney Foundation (A Unifying Approach to GFR Estimation: Recommendations of the NKF-ASK Task Force on Reassessing the Inclusion of Race in Diagnosing Kidney Disease, JASN 2020). The CKD-EPI equation should not be used for patients with unstable renal function and has not been validated in children and those over 70. Current interpretive data was last reviewed 2021. Blood 12/29/2024 2:12 AM CDT 12/29/2024 3:31 AM CDT Elisa Quiroz NP LAB BLOOD ORDERABLES Final R esult Performing Organization Address City/[facility]/ZIP Co de Phone Number [facility] Department [place] [address] * (ABNORMAL) CBC without differential (12/29/2024 2:12 AM CDT) [facility] WBC 5.73 3.80 - 9.90 K/cumm Hgb 8.3(L) 11.9 - 15.5 g/dL [facility] Hct 27.0(L) 35.6 - 45.5 % [facility] Plt 219 150 - 400 K/cumm [facility] MPV 9.9 9.1 - 12.3 fL [facility] RBC 3.47(L) 3.90 - 5.20 M/cumm [facility] MCV 77.8(L) 81.3 - 96.4 fL [facility] MCH 23.9(L) 27.1 - 33.3 pg [facility] MCHC 30.7(L) 32.3 - 35.7 g/dL [facility] RDW CV 22.6(H) 11.1 - 14.9 % [facility] RDW SD 63.7(H) 35.7 - 48.1 fL [facility] NRBC abs 0.00 0.00 - 0.01 K/cumm [facility] Blood 12/29/2024 2:12 AM CDT 12/29/2024 3:31 AM CDT Elisa Quiroz NP LAB BLOOD ORDERABLES Final R esult Performing Organization Address City/[facility] Co de Phone Number [facility] Department [place] [address] * Phosphorus (12/29/2024 2:12 AM CDT) Pathologist [facility] Phosphorus, pl 4.5 2.3 - 4.5 mg/dL Blood 12/29/2024 2:12 AM CDT 12/29/2024 3:31 AM CDT Elisa Quiroz NP LAB BLOOD ORDERABLES Final R esult Performing Organization Address City/[facility] de Phone Number [facility] Department [place] [address] * (ABNORMAL) Magnesium (12/29/2024 2:12 AM CDT) Magnesium 3.4(H) 1.4 - 2.5 mg/dL Blood 12/29/2024 2:12 AM CDT 12/29/2024 3:31 AM CDT Elisa Quiroz NP LAB BLOOD ORDERABLES Final R esult [facility] [place] [address] * (ABNORMAL) Comprehensive metabolic panel (12/29/2024 2:12 AM CDT) Sodium 142 135 - 145 mmol/L Potassium, pl 3.4 3.3 - 4.9 mmol/L [facility] Chloride 105 97 - 110 mmol/L [facility] CO2 27 22 - 32 mmol/L [facility] Anion gap 10 2 - 15 mmol/L [facility] BUN 12 6 - 25 mg/dL [facility] Creatinine 0.84 0.60 - 1.10 mg/dL [facility] Glucose 113 70 - 199 mg/dL [facility] Comment: Interpretive Data Fasting glucose >/= 126 mg/dl is diagnostic for diabetes. Fasting is defined as no caloric intake for at least 8 hours. Fasting glucose between 100 mg/dl to 125 mg/dl is diagnostic of prediabetes. In a patient with classic symptoms of hyperglycemia or hyperglycemic crisis, a random glucose >/= 200 mg/dl is diagnostic for diabetes. In the absence of unequivocal hyperglycemia, results should be confirmed by repeat testing. The classification and Diagnosis of Diabetes Diabetes Care 2021; 46: S19-S40. Current interpretive data was last revised 2022. Calcium 8.5 8.5 - 10.3 mg/dL [facility] Bilirubin, total 0.3 0.1 - 1.2 mg/dL [facility] Protein, pl 6.3(L) 6.5 - 8.5 g/dL [facility] Albumin 3.5 3.5 - 5.0 g/dL [facility] Alk phos 93 40 - 130 Units/L [facility] ALT 16 7 - 45 Units/L [facility] AST 25 10 - 45 Units/L [facility] Blood 12/29/2024 2:12 AM CDT 12/29/2024 3:31 AM CDT Elisa Quiroz NP LAB BLOOD ORDERABLES Final R esult [facility] [place] [address] * Heparin anti factor Xa activity (12/28/2024 1:05 PM CDT) Anti Factor Xa <0.10 IUnits/mL Comment: Interpretive Data Enoxaparin therapeutic range (peak): VTE treatment, Q12hr dosin.60-1.00 IUnits/mL VTE treatment, Q24hr dosin.00-2.00 IUnits/mL Q24hr dosing for renal impairment (CrCl <30 mL/min): 0.60-1.00 IUnits/mL VTE prevention: 0.10-0.40 IUnits/mL - Anti-Xa therapeutic ranges apply to blood samples drawn 4 hours after last dose (peak). - Unfractionated heparin (UFH) therapeutic range: 0.30-0.70 IUnits/mL - Direct factor Xa inhibitors (rivaroxaban, apixaban): Results must be interpreted qualitatively. No activity detected suggests little anticoagulant activity. - In severe antithrombin deficiency, anti-Xa measurement may be inaccurate. - Interpretive guidelines developed in adult populations. Interpretive guidelines for pediatric patients have not been rigorously defined. - Current interpretive data was last revised on 2019. Blood 12/28/2024 1:05 PM CDT 12/28/2024 1:16 PM CDT Elisa Quiroz NP LAB BLOOD ORDERABLES Final R esult [facility] CAR[facility] Department [place] [address] * XR chest 1 view (Portable) (12/28/2024 11:30 AM CDT) Anatomical Region Laterality Modality Body, Chest N/A Digital Radiogra phy 12/28/2024 4:02 PM CDT Impressions 12/28/2024 4:02 PM CDT Comparison 12/27/2024. Right internal jugular portacatheter terminates in right atrium. Diminished lung volumes. Heart size normal. No consolidation. No pleural effusions. No pneumothorax. Electronically signed by: Rico Chang M.D. Narrative 12/28/2024 4:02 PM CDT EXAMINATION: 1 view chest radiograph Procedure Note Rico Chang MD - 12/28/2024 EXAMINATION: 1 view chest radiograph IMPRESSION: Comparison 12/27/2024. Right internal jugular portacatheter terminates in right atrium. Diminished lung volumes. Heart size normal. No consolidation. No pleural effusions. No pneumothorax. Electronically signed by: Rico Chang M.D. Elisa Quiroz [employer] IMG XR PROCEDURES Final Resu lt * POCT glucose (12/28/2024 11:02 AM CDT) Glucose, POC 76 70 - 199 mg/dL Blood 12/28/2024 11:0 2 AM CDT 12/28/2024 11:02 AM CDT Marek Coley MD LAB POCT ORDERABLES - KELSEA CE Final Result Performing Organization Address City/State/[facility] Co de Phone Number [facility] [place] [address] * Troponin I high-sensitivity 2-hour (12/28/2024 10:33 AM CDT) Trop I hs <4 <=17 ng/L Comment: Interpretive Data For further hscTnI resources including the diagnostic algorithm and an aid in interpretation, copy and paste this link: https://bjhlab.testcatalog.org/show/hsTrop-1 Current Interpretive Data last revised 2020. Trop I hs delta See Comment ng/L [facility] Comment:Inappropriate collec tion time to report a delta. Trop I hs pct delta See Comment % [facility] Comment:Inappropriate collec tion time to report a delta. Trop I hs interp See Comment [facility] Comment:Inappropriate collec tion time to report a delta. Blood 12/28/2024 10:3 3 AM CDT 12/28/2024 10:46 AM CDT us Elisa Quiroz [employer] LAB BLOOD ORDERABLES Final R esult Performing Organization Address City/[facility]/ZIP Co de Phone Number [facility] [place] [address] * Lactate, whole blood (12/28/2024 9:08 AM CDT) Pathologist [facility] Lactate, bld 0.7 0.7 - 2.0 mmol/L Blood 12/28/2024 9:08 AM CDT 12/28/2024 9:27 AM CDT Lucy Blunt [employer] LAB BLOOD ORDERABLES Final Result Performing Organization Address [facility] Co de Phone Number [facility] Department [place] [address] * Creatine kinase (CK), total (12/28/2024 9:08 AM CDT) Pathologist [facility] CK 57 30 - 200 Units/L Blood 12/28/2024 9:08 AM CDT 12/28/2024 9:37 AM CDT Lucy Blunt [employer] LAB BLOOD ORDERABLES Final Result Performing Organization Address City/[facility] Co de Phone Number [facility] [place] [address] * ECG 12 lead (12/28/2024 6:47 AM CDT) Pathologist [facility] Ventricular Rate EKG/Min [address] [facility] Atrial Rate [address] [facility] WA-Interval (MSEC) [address] [facility] QRS-Interval (MSEC) [address] [facility] QT-Interval (MSEC) [address] [facility] QTc [address] [facility] P [place] [address] [facility] R [place] -[address] [facility] T [place] [address] [facility] Diagnosis Normal sinus rhythm Normal ECG When compared with ECG of 12-NOV-2024 21:11, Vent. rate has decreased BY 39 BPM Confirmed by CHRIS RIVER M.D ([id number]) on 12/31/2024 9:41:[address] [facility] 12/28/2024 6:47 AM CDT 12/31/2024 9:41 AM CDT us Elisa Quiroz [employer] ECG ORDERABLES Final Result Performing Organization Address [facility] Co de Phone Number [facility] * Type and screen (12/28/2024 6:46 AM CDT) Dorothy, indirect Negative ABO Rh O Negative [facility] Blood 12/28/2024 6:46 AM CDT 12/28/2024 9:31 AM CDT us Elisa Quiroz NP LAB BLOOD BANK TEST ORDERABL ES Final Result Performing Organization Address [facility] Co de Phone Number [facility] Department [place] [address] * POCT glucose (12/28/2024 6:31 AM CDT) Glucose, POC 80 70 - 199 mg/dL Blood 12/28/2024 6:31 AM CDT 12/28/2024 6:31 AM CDT Marshall Crane MD PhD LAB POCT ORDERA BLES - DEVICE Final Result Performing Organization Address [facility] Co de Phone Number [facility] Department [place] [address] * Troponin I high-sensitivity series (baseline, 2hr, 4hr, 6hr) (12/28/2024 6:29 AM CDT) Trop I hs <4 <=17 ng/L Comment: Interpretive Data For further hscTnI resources including the diagnostic algorithm and an aid in interpretation, copy and paste this link: https://bjhlab.testcatalog.org/show/hsTrop-1 Current Interpretive Data last revised 2020. Blood 12/28/2024 6:29 AM CDT 12/28/2024 9:37 AM CDT Elisa Quiroz NP LAB BLOOD ORDERABLES Final R esult [facility] Department [place] [address] * eGFR (12/28/2024 6:29 AM CDT) eGFR >90 >=60 mL/min/1. 73 m2 Comment: Interpretive Data Reference Interval Normal >/= 90 mL/min/1.73m2 Mildly decreased* 60 - 89 mL/min/1.73m2 Mildly to moderately decreased 45 - 59 mL/min/1.73m2 Moderately to severely decreased 30 - 44 mL/min/1.73m2 Severely decreased 15 - 29 mL/min/1.73m2 Kidney Failure < 15 mL/min/1.73m2 *Relative to young adult level Estimated glomerular filtration rate is determined by the 2020 CKD-EPI equation recommended by the National Kidney Foundation (A Unifying Approach to GFR Estimation: Recommendations of the NKF-ASK Task Force on Reassessing the Inclusion of Race in Diagnosing Kidney Disease, JASN 2020). The CKD-EPI equation should not be used for patients with unstable renal function and has not been validated in children and those over 70. Current interpretive data was last reviewed 2021. Blood 12/28/2024 6:29 AM CDT 12/28/2024 9:37 AM CDT Elisa Quiroz NP LAB BLOOD ORDERABLES Final R esult Performing Organization Address [facility] Co de Phone Number [facility] [place] [address] * (ABNORMAL) aPTT (12/28/2024 6:29 AM CDT) aPTT 42(H) 28 - 38 sec Comment: Interpretive Data Heparin therapeutic range: 66.0 - 100.0 seconds. Range based on correlation with therapeutic heparin activity range of 0.3 - 0.7 Units/mL. Current interpretive data was last revised on 2023. Blood 12/28/2024 6:29 AM CDT 12/28/2024 9:30 AM CDT Elisa Quiroz NP LAB BLOOD ORDERABLES Final R esult Performing Organization Address [facility] de Phone Number [facility] [place] [address] * Protime-INR (12/28/2024 6:29 AM CDT) PT 11.2 9.7 - 13.0 sec INR 1.04 0.90 - 1.20 [facility] Comment: Interpretive data Oral anticoagulant therapeutic ranges: Venous thromboembolism prophylaxis or treatment: 2.0-3.0 CARDIOLOGY Standard range: 2.0-3.0 High-intensity range: 2.5-3.5 Refer to indication-specific guidelines for appropriate target ranges for prosthetic heart valve replacement. Current interpretive data was last revised on 2019. Blood 12/28/2024 6:29 AM CDT 12/28/2024 9:30 AM CDT Elisa Quiroz NP LAB BLOOD ORDERABLES Final R esult Performing Organization Address City/[facility] Co de Phone Number [facility] [place] [address] * (ABNORMAL) CBC without differential (12/28/2024 6:29 AM CDT) WBC 5.23 3.80 - 9.90 K/cumm Hgb 8.7(L) 11.9 - 15.5 g/dL [facility] Hct 29.1(L) 35.6 - 45.5 % [facility] Plt 264 150 - 400 K/cumm [facility] MPV 9.6 9.1 - 12.3 fL [facility] RBC 3.68(L) 3.90 - 5.20 M/cumm [facility] MCV 79.1(L) 81.3 - 96.4 fL [facility] MCH 23.6(L) 27.1 - 33.3 pg [facility] MCHC 29.9(L) 32.3 - 35.7 g/dL [facility] RDW CV 22.5(H) 11.1 - 14.9 % [facility] RDW SD 63.4(H) 35.7 - 48.1 fL [facility] NRBC abs 0.00 0.00 - 0.01 K/cumm [facility] Blood 12/28/2024 6:29 AM CDT 12/28/2024 9:37 AM CDT Elisa Quiroz NP LAB BLOOD ORDERABLES Final R esult [facility] [place] [address] * (ABNORMAL) Phosphorus (12/28/2024 6:29 AM CDT) Pathologist [facility] Phosphorus, pl 4.7(H) 2.3 - 4.5 mg/dL Blood 12/28/2024 6:29 AM CDT 12/28/2024 9:37 AM CDT us Elisa Janet Nahlik [employer] LAB BLOOD ORDERABLES Final R esult [facility] [place] [address] * Magnesium (12/28/2024 6:29 AM CDT) Pathologist [facility] Magnesium 2.4 1.4 - 2.5 mg/dL Blood 12/28/2024 6:29 AM CDT 12/28/2024 9:37 AM CDT Elisa Gonzales Domenicajudy [employer] LAB BLOOD ORDERABLES Final R [facility] Performing Organization Address [facility] Co de Phone Number [facility] [place] [address] * (ABNORMAL) Comprehensive metabolic panel (12/28/2024 6:29 AM CDT) [facility] Sodium 146(H) 135 - 145 mmol/L Potassium, pl 3.8 3.3 - 4.9 mmol/L [facility] Chloride 111(H) 97 - 110 mmol/L [facility] CO2 27 22 - 32 mmol/L [facility] Anion gap 8 2 - 15 mmol/L [facility] BUN 12 6 - 25 mg/dL [facility] Creatinine 0.86 0.60 - 1.10 mg/dL [facility] Glucose 96 70 - 199 mg/dL [facility] Comment: Interpretive Data Fasting glucose >/= 126 mg/dl is diagnostic for diabetes. Fasting is defined as no caloric intake for at least 8 hours. Fasting glucose between 100 mg/dl to 125 mg/dl is diagnostic of prediabetes. In a patient with classic symptoms of hyperglycemia or hyperglycemic crisis, a random glucose >/= 200 mg/dl is diagnostic for diabetes. In the absence of unequivocal hyperglycemia, results should be confirmed by repeat testing. The classification and Diagnosis of Diabetes Diabetes Care 2021; 46: S19-S40. Current interpretive data was last revised 2022. Calcium 8.9 8.5 - 10.3 mg/dL [facility] Bilirubin, total 0.3 0.1 - 1.2 mg/dL [facility] Protein, pl 6.5 6.5 - 8.5 g/dL [facility] Albumin 3.8 3.5 - 5.0 g/dL [facility] Alk phos 94 40 - 130 Units/L [facility] ALT 14 7 - 45 Units/L [facility] AST 20 10 - 45 Units/L [facility] Blood 12/28/2024 6:29 AM CDT 12/28/2024 9:37 AM CDT Elisa Quiroz NP LAB BLOOD ORDERABLES Final R esult [facility] [place] [address] * CT Chest Abdomen Pelvis W Contrast (12/27/2024 11:30 PM CDT) Anatomical Region Laterality Modality Body N/A Computed Tomogra phy 12/27/2024 11:4 6 PM CDT Narrative 12/27/2024 11:49 PM CDT EXAM DESCRIPTION: CT CHEST ABDOMEN PELVIS W CONTRAST REASON FOR STUDY: Concern for infection around Port-A-Cath Seizure like activity multiple times today. Possible ETOH withdrawal TECHNIQUE: CT scan of the chest, abdomen, and pelvis performed with intravenous and without oral contrast using helical scanning technique with dynamic intravenous contrast injection. Reconstructed coronal and sagittal MPR images reviewed. All images stored on PACS. Automated exposure control was used as a dose optimization technique for this examination. CONTRAST TYPE/DOSE: 125mL of IOVERSOL 350 MG IODINE/ML INTRAVENOUS SYRINGE injected via intravenous COMPARISON: 05/08/2020 FINDINGS: CHEST LUNGS: No nodules or masses. No pneumonia. PLEURA: No effusion. No pneumothorax. MEDIASTINUM/DEBBY: No identified masses or abnormal nodes. HEART: Heart size is normal with no pericardial effusion. VASCULATURE CHEST: No thoracic aortic aneurysm or dissection. AXILLA: No adenopathy. CHEST WALL: No masses. No subcutaneous air. HARDWARE/LINES/TUBES: Right-sided implanted catheter is noted. This produces some streak artifact. Surrounding soft tissues appear unremarkable. No associated fluid collections are seen. MUSCULOSKELETAL CHEST: No significant abnormality. ABDOMEN/PELVIS LIVER: Normal size. No identified cystic or solid masses. GALLBLADDER: Removed BILE DUCTS: No intrahepatic or extrahepatic ductal dilatation. SPLEEN: Normal size. No focal lesions. PANCREAS: No identified cystic or solid masses. No significant calcifications. No adjacent inflammation or peripancreatic fluid collections. Pancreatic duct not dilated. ADRENALS: Normal. KIDNEYS/URINARY TRACT: No identified significant cystic or solid masses. No visualized stones. No hydronephrosis or hydroureter. Symmetric enhancement. Bladder is decompressed with a Shine catheter. GI: No dilated bowel loops. No obvious wall thickening. Normal appendix. No significant diverticular disease. Surgical changes are noted of the stomach. PERITONEUM: No ascites or free air. RETROPERITONEUM: No mass or adenopathy. REPRODUCTIVE: No significant abnormality. VASCULATURE ABDOMEN: No abdominal aortic aneurysm. MUSCULOSKELETAL ABDOMEN PELVIS: No acute finding. OTHER: No significant abnormality. IMPRESSION: No acute abnormality is seen. No findings are seen to explain the patient's symptoms. Right-sided implanted catheter is noted. This produces some streak artifact. Surrounding soft tissues appear unremarkable. No associated fluid collections are seen. THIS IS AN ELECTRONICALLY VERIFIED FINAL REPORT 12/27/2024 11:49 PM - Electronically signed by Oz Correia M.D. KH: OSORIO Report ID: [id number] Reading Location: [place] [address] Procedure Note Oz Correia MD - 12/27/2024 EXAM DESCRIPTION: CT CHEST ABDOMEN PELVIS W CONTRAST REASON FOR STUDY: Concern for infection around Port-A-Cath Seizure like activity multiple times today. Possible ETOH withdrawal TECHNIQUE: CT scan of the chest, abdomen, and pelvis performed with intravenous and without oral contrast using helical scanning techniquewith dynamic intravenous contrast injection. Reconstructed coronal and sagittalMPR images reviewed. All images stored on PACS. Automated exposure control was used as a dose optimization technique for this examination. CONTRAST TYPE/DOSE: 125mL of IOVERSOL 350 MG IODINE/ML INTRAVENOUS SYRINGE injected via intravenous COMPARISON: 05/08/2020 FINDINGS: CHEST LUNGS: No nodules or masses. No pneumonia. PLEURA: No effusion. No pneumothorax. MEDIASTINUM/DEBBY: No identified masses or abnormal nodes. HEART: Heart size is normal with no pericardial effusion. VASCULATURE CHEST: No thoracic aortic aneurysm or dissection. AXILLA: No adenopathy. CHEST WALL: No masses. No subcutaneous air. HARDWARE/LINES/TUBES: Right-sided implanted catheter is noted. This produces some streak artifact. Surrounding soft tissues appearunremarkable. No associated fluid collections are seen. MUSCULOSKELETAL CHEST: No significant abnormality. ABDOMEN/PELVIS LIVER: Normal size. No identified cystic or solid masses. GALLBLADDER: Removed BILE DUCTS: No intrahepatic or extrahepatic ductal dilatation. SPLEEN: Normal size. No focal lesions. PANCREAS: No identified cystic or solid masses. No significant calcifications. No adjacent inflammation or peripancreatic fluidcollections. Pancreatic duct not dilated. ADRENALS: Normal. KIDNEYS/URINARY TRACT: No identified significant cystic or solid masses.No visualized stones. No hydronephrosis or hydroureter. Symmetricenhancement. Bladder is decompressed with a Shine catheter. GI: No dilated bowel loops. No obvious wall thickening. Normalappendix. No significant diverticular disease. Surgical changes are noted of the stomach. PERITONEUM: No ascites or free air. RETROPERITONEUM: No mass or adenopathy. REPRODUCTIVE: No significant abnormality. VASCULATURE ABDOMEN: No abdominal aortic aneurysm. MUSCULOSKELETAL ABDOMEN PELVIS: No acute finding. OTHER: No significant abnormality. IMPRESSION: No acute abnormality is seen. No findings are seen to explain thepatient's symptoms. Right-sided implanted catheter is noted. This produces some streakartifact. Surrounding soft tissues appear unremarkable. No associated fluidcollections are seen. THIS IS AN ELECTRONICALLY VERIFIED FINAL REPORT 12/27/2024 11:49 PM - Electronically signed by Oz Correia M.D. KH: OSORIO Report ID: [id number] Reading Location: [id number] us Georges Figueroa MD IMG CT PROCEDURES Final Resul t * CT Head WO Contrast (12/27/2024 11:30 PM CDT) Anatomical Region Laterality Modality Head and Neck N/A Computed Tomogra phy 12/27/2024 11:4 2 PM CDT Narrative 12/27/2024 11:46 PM CDT EXAM DESCRIPTION: CT HEAD WO CONTRAST REASON FOR STUDY: Headache, no red flags, Mental status change, unknown cause Seizure like activity multiple times today. Possible ETOH withdrawal TECHNIQUE: Axial images acquired through the brain without intravenous contrast. Images stored on PACS. Automated exposure control was used as a dose optimization technique for this examination. COMPARISON: 11/12/2024 FINDINGS: BRAIN: No hemorrhage, edema or mass effect. No recent infarct. Normal white matter. EXTRA-AXIAL SPACES: No fluid collections. No masses. CALVARIUM: No fracture. SINUSES/MASTOIDS: No fluid or mucosal thickening. ORBITS: No significant abnormality. OTHER: No other significant abnormality. IMPRESSION: No acute intracranial findings. THIS IS AN ELECTRONICALLY VERIFIED FINAL REPORT 12/27/2024 11:46 PM - Electronically signed by Oz AC: OSORIO Report ID: [id number] Reading Location: [place] [address] Procedure Note Oz Correia MD - 12/27/2024 EXAM DESCRIPTION: CT HEAD WO CONTRAST REASON FOR STUDY: Headache, no red flags, Mental status change, unknowncause Seizure like activity multiple times today. Possible ETOH withdrawal TECHNIQUE: Axial images acquired through the brain without intravenous contrast. Images stored on PACS. Automated exposure control was used asa dose optimization technique for this examination. COMPARISON: 11/12/2024 FINDINGS: BRAIN: No hemorrhage, edema or mass effect. No recent infarct. Normal white matter. EXTRA-AXIAL SPACES: No fluid collections. No masses. CALVARIUM: No fracture. SINUSES/MASTOIDS: No fluid or mucosal thickening. ORBITS: No significant abnormality. OTHER: No other significant abnormality. IMPRESSION: No acute intracranial findings. THIS IS AN ELECTRONICALLY VERIFIED FINAL REPORT 12/27/2024 11:46 PM - Electronically signed by Oz AC: OSORIO Report ID: [id number] Reading Location: [id number] us Vaughn Dee MD IMG CT PROCEDURES Final Res ult * XR Chest 1 Vw Portable (12/27/2024 8:58 PM CDT) Anatomical Region Laterality Modality Body, Chest N/A Computed Radiogr aphy 12/27/2024 9:00 PM CDT Narrative 12/27/2024 9:01 PM CDT EXAM DESCRIPTION: XR CHEST 1 VIEW REASON FOR STUDY: Seizure disorder, clinical change Pt at for fatigue and possible iron deficiency. Pt had sz en route with EMS with foaming at the mouth. Pt given 4 IN versed. Pt responsive and cooperative upon arrival. TECHNIQUE: Frontal radiographic view(s) of the chest. COMPARISON: Chest radiograph dated 11/13/2024. FINDINGS: LUNGS: Low lung volumes. No focal airspace consolidation. No pleural effusion or pneumothorax. HEART/MEDIASTINUM: Cardiac silhouette normal in size. Mediastinal and hilar contours appear normal. LINES/TUBES: A right-sided chest port is again seen with tip terminating over the superior cavoatrial junction. BONES: No acute osseous abnormality. IMPRESSION: Stable chest without acute cardiopulmonary abnormality. THIS IS AN ELECTRONICALLY VERIFIED FINAL REPORT 12/27/2024 9:01 PM - Electronically signed by Carmelo Ulloa M.D. MF: [id number] Report ID: [id number] Reading Location: [id number] Procedure Note Carmelo Ulloa, DO - 12/27/2024 EXAM DESCRIPTION: XR CHEST 1 VIEW REASON FOR STUDY: Seizure disorder, clinical change Pt at for fatigue and possible iron deficiency. Pt had sz en route withEMS with foaming at the mouth. Pt given 4 IN versed. Pt responsive andcooperative upon arrival. TECHNIQUE: Frontal radiographic view(s) of the chest. COMPARISON: Chest radiograph dated 11/13/2024. FINDINGS: LUNGS: Low lung volumes. No focal airspace consolidation. No pleural effusion or pneumothorax. HEART/MEDIASTINUM: Cardiac silhouette normal in size. Mediastinal andhilar contours appear normal. LINES/TUBES: A right-sided chest port is again seen with tip terminatingover the superior cavoatrial junction. BONES: No acute osseous abnormality. IMPRESSION: Stable chest without acute cardiopulmonary abnormality. THIS IS AN ELECTRONICALLY VERIFIED FINAL REPORT 12/27/2024 9:01 PM - Electronically signed by Carmelo Ulloa M.D. MF: [id number] Report ID: [id number] Reading Location: [place] [address] Vaughn Dee MD IMG XR PROCEDURES Final Res ult * eGFR (12/27/2024 8:29 PM CDT) eGFR >90 >=60 mL/min/1. 73 m2 Comment: Interpretive Data Reference Interval Normal >/= 90 mL/min/1.73m2 Mildly decreased* 60 - 89 mL/min/1.73m2 Mildly to moderately decreased 45 - 59 mL/min/1.73m2 Moderately to severely decreased 30 - 44 mL/min/1.73m2 Severely decreased 15 - 29 mL/min/1.73m2 Kidney Failure < 15 mL/min/1.73m2 *Relative to young adult level Estimated glomerular filtration rate is determined by the 2020 CKD-EPI equation recommended by the National Kidney Foundation (A Unifying Approach to GFR Estimation: Recommendations of the NKF-ASK Task Force on Reassessing the Inclusion of Race in Diagnosing Kidney Disease, JASN 2020). The CKD-EPI equation should not be used for patients with unstable renal function and has not been validated in children and those over 70. Current interpretive data was last reviewed 2021. Blood 12/27/2024 8:29 PM CDT 12/28/2024 3:39 AM CDT Vaughn Dee MD LAB BLOOD ORDERABLES Final Result [facility] [address] [facility] [address] [place], [place] [id number] * eGFR (12/27/2024 8:29 PM CDT) eGFR >90 >=60 mL/min/1. 73 m2 Comment: Interpretive Data Reference Interval Normal >/= 90 mL/min/1.73m2 Mildly decreased* 60 - 89 mL/min/1.73m2 Mildly to moderately decreased 45 - 59 mL/min/1.73m2 Moderately to severely decreased 30 - 44 mL/min/1.73m2 Severely decreased 15 - 29 mL/min/1.73m2 Kidney Failure < 15 mL/min/1.73m2 *Relative to young adult level Estimated glomerular filtration rate is determined by the 2020 CKD-EPI equation recommended by the National Kidney Foundation (A Unifying Approach to GFR Estimation: Recommendations of the NKF-ASK Task Force on Reassessing the Inclusion of Race in Diagnosing Kidney Disease, JASN 2020). The CKD-EPI equation should not be used for patients with unstable renal function and has not been validated in children and those over 70. Current interpretive data was last reviewed 2021. Blood 12/27/2024 8:29 PM CDT 12/27/2024 9:07 PM CDT us Vaughn Dee MD LAB BLOOD ORDERABLES Final Result [facility] [address] [facility] [place] [address] * Differential, auto (12/27/2024 8:29 PM CDT) Pathologist [facility] Neutrophil abs 3.89 1.50 - 6.50 K/cumm Imm gran abs 0.01 0.00 - 0.10 K/cumm [facility] ([place]) Lymphocyte abs 1.37 0.80 - 3.30 K/cumm [facility] ([place]) Monocyte abs 0.70 0.20 - 0.80 K/cumm [facility] ([place]) Eosinophil abs 0.11 0.00 - 0.50 K/cumm [facility] ([place]) Basophil abs 0.03 0.00 - 0.10 K/cumm [facility] ([place]) Neutrophil pct 63.6 % [facility] ([place]) Comment: Interpretive Data Percent cell count reference ranges are not reported, since discordance with absolute values may lead to misinterpretation of CBC data. Current Interpretive Data was last revised on 2017. Imm gran pct 0.2 % [facility] ([place]) Comment: Interpretive Data Percent cell count reference ranges are not reported, since discordance with absolute values may lead to misinterpretation of CBC data. Current Interpretive Data was last revised on 2017. Lymphocyte pct 22.4 % [facility] ([place]) Comment: Interpretive Data Percent cell count reference ranges are not reported, since discordance with absolute values may lead to misinterpretation of CBC data. Current Interpretive Data was last revised on 2017. Monocyte pct 11.5 % [facility] ([place]) Comment: Interpretive Data Percent cell count reference ranges are not reported, since discordance with absolute values may lead to misinterpretation of CBC data. Current Interpretive Data was last revised on 2017. Eosinophil pct 1.8 % [facility] ([place]) Comment: Interpretive Data Percent cell count reference ranges are not reported, since discordance with absolute values may lead to misinterpretation of CBC data. Current Interpretive Data was last revised on 2017. Basophil pct 0.5 % [facility] ([place]) Comment: Interpretive Data Percent cell count reference ranges are not reported, since discordance with absolute values may lead to misinterpretation of CBC data. Current Interpretive Data was last revised on 2017. Blood 12/27/2024 8:29 PM CDT 12/27/2024 9:07 PM CDT us Vaughn Dee MD LAB BLOOD ORDERABLES Final Result [facility] ([place] [address] [facility] Department of Laboratories [place], [place] [phone] * (ABNORMAL) CBC with auto differential (12/27/2024 8:29 PM CDT) WBC 6.11 3.80 - 9.90 K/cumm Hgb 9.4(L) 11.9 - 15.5 g/dL [facility] ([place]) Hct 31.7(L) 35.6 - 45.5 % [facility] ([place]) Plt 285 150 - 400 K/cumm [facility] ([place]) MPV 9.4 9.1 - 12.3 fL [facility] ([place]) RBC 3.95 3.90 - 5.20 M/cumm [facility] ([place]) MCV 80.3(L) 81.3 - 96.4 fL [facility] ([place]) MCH 23.8(L) 27.1 - 33.3 pg [facility] ([place]) MCHC 29.7(L) 32.3 - 35.7 g/dL [facility] ([place]) RDW CV 21.8(H) 11.1 - 14.9 % [facility] ([place]) RDW SD 61.0(H) 35.7 - 48.1 fL [facility] ([place]) NRBC abs 0.00 0.00 - 0.01 K/cumm [facility] ([place]) Blood 12/27/2024 8:29 PM CDT 12/27/2024 9:07 PM CDT Vaughn Dee MD LAB BLOOD ORDERABLES Final Result [facility] ([place]) [address] [facility] [place] [address] * (ABNORMAL) Levetiracetam level (12/27/2024 8:29 PM CDT) Levetiracetam (Keppra) 2.5(L) 10.0 - 40.0 mcg/mL [place] [facility] Comment: ADDITIONAL INFORMATION This test was developed and its performance characteristics determined by [facility] in a manner consistent with CLIA requirements. This test has not been cleared or approved by the U.S. Food and Drug Administration. Test Performed by: [facility] [address] [place] [id number] Solid Waste Manager: Sis Dominguez Ph.D.; CLIA# [id number] Blood 12/27/2024 8:29 PM CDT 12/28/2024 3:39 AM CDT Vaughn Dee MD LAB BLOOD ORDERABLES Final Result [facility] ([place] [address] [facility] [place] [address] [place] * Blood culture Blood (12/27/2024 8:29 PM CDT) Report Final Report: No growth Comment:Testing performed by : [facility], [address] [facility]., [address] Blood 12/27/2024 8:29 PM CDT 12/28/2024 12:53 AM CDT Narrative [facility] ([place]) - 01/01/2025 7:00 AM CDT Collection->Peripheral 1. Blood cultures are incubated for 4 days on a continuously monitored blood culture system. The first report of a negative culture is issued within 24 hours of receipt of the specimen in the laboratory. 2. Positive culture results are reported as soon as they are detected. 3. The most important factor for detection of microbes in the setting of bloodstream infection is the volume of blood submitted for culture. Failure to collect an optimal blood volume can result in false negative blood cultures. 4. For pediatric patients, the recommended blood volume to collect follows a weight based strategy. See the electronic test catalog for collection instructions. 5. For positive blood cultures, a rapid molecular test may be performed for organism identification using the dalton ePlex blood culture identification panel for gram positive (BCID-GP) and gram negative (BCID-GN) organisms. This nucleic acid amplification test detects microbial DNA in positive blood culture broth. This assay has been cleared by the [place] Food and Drug Administration and its performance characteristics have been verified by the [facility] Microbiology Laboratory. For questions about this culture, contact the Microbiology Laboratory at [phone]. Interpretive data was last revised on 24. Vaughn Dee MD LAB MICROBIOLOGY - GENERAL ORDERABLES Final Result Performing Organization Address City/[facility]/ZIP Co de Phone Number [facility]) [address] [place] [address] * Blood culture Blood (12/27/2024 8:29 PM CDT) Report Final Report: No growth Comment:Testing performed by : [facility], [address] [place]., [address] Blood 12/27/2024 8:29 PM CDT 12/28/2024 12:53 AM CDT Narrative [facility]) - 01/01/2025 7:00 AM CDT Collection->Peripheral 1. Blood cultures are incubated for 4 days on a continuously monitored blood culture system. The first report of a negative culture is issued within 24 hours of receipt of the specimen in the laboratory. 2. Positive culture results are reported as soon as they are detected. 3. The most important factor for detection of microbes in the setting of bloodstream infection is the volume of blood submitted for culture. Failure to collect an optimal blood volume can result in false negative blood cultures. 4. For pediatric patients, the recommended blood volume to collect follows a weight based strategy. See the electronic test catalog for collection instructions. 5. For positive blood cultures, a rapid molecular test may be performed for organism identification using the dalton ePlex blood culture identification panel for gram positive (BCID-GP) and gram negative (BCID-GN) organisms. This nucleic acid amplification test detects microbial DNA in positive blood culture broth. This assay has been cleared by the [place] Food and Drug Administration and its performance characteristics have been verified by the [facility]biology Laboratory. For questions about this culture, contact the Microbiology Laboratory at [phone]. Interpretive data was last revised on 24. Vaughn Dee MD LAB MICROBIOLOGY - GENERAL ORDERABLES Final Result [facility]) [address] [place] [address] * aPTT (12/27/2024 8:29 PM CDT) aPTT 34 28 - 38 sec [facility] ([place]) Comment: Interpretive Data Heparin therapeutic range: 66.0 - 100.0 seconds. Range based on correlation with therapeutic heparin activity range of 0.3 - 0.7 Units/mL. Current interpretive data was last revised on 2023. Blood 12/27/2024 8:29 PM CDT 12/27/2024 9:07 PM CDT Vaughn Dee MD LAB BLOOD ORDERABLES Final Result Performing Organization Address [facility] Co de Phone Number [facility] ([place]) [address] [place] [address] * Protime-INR (12/27/2024 8:29 PM CDT) PT 10.3 9.7 - 13.0 sec [facility] ([place]) INR 0.95 0.90 - 1.20 [facility] ([place]) Comment: Interpretive data Oral anticoagulant therapeutic ranges: Venous thromboembolism prophylaxis or treatment: 2.0-3.0 CARDIOLOGY Standard range: 2.0-3.0 High-intensity range: 2.5-3.5 Refer to indication-specific guidelines for appropriate target ranges for prosthetic heart valve replacement. Current interpretive data was last revised on 2019. Blood 12/27/2024 8:29 PM CDT 12/27/2024 9:07 PM CDT Vaughn Dee MD LAB BLOOD ORDERABLES Final Result Performing Organization Address City/[facility]/ZIP Co de Phone Number [facility] ([place] 1 [facility] [place] [address] * CRP (acute phase) (12/27/2024 8:29 PM CDT) CRP 5.5 <=10.0 mg/L Blood 12/27/2024 8:29 PM CDT 12/28/2024 3:39 AM CDT Vaughn Dee MD LAB BLOOD ORDERABLES Final Result [facility] ([place] 1 [facility] [place] [address] * hCG, blood, quantitative (12/27/2024 8:29 PM CDT) hCG, quant <5.0 0.0 - 5.0 IUnits/L Comment: Interpretive Data Male: < 5 IU/L Non- premenopausal Female: <5 IU/L The Viki hCG Beta Quant assay procedure was used. Results from different manufacturers or methods may not be comparable. Serial testing should be performed using the same method. Interpretive Data was last revised on 2023 Blood 12/27/2024 8:29 PM CDT 12/27/2024 9:07 PM CDT Vaughn Dee MD LAB BLOOD ORDERABLES Edited Result - Final Performing Organization Address City/[facility]/ZIP Co de Phone Number [facility] ([place]) [address] [place] [address] * Magnesium (12/27/2024 8:29 PM CDT) Pathologist [facility] Magnesium 2.0 1.4 - 2.5 mg/dL Blood 12/27/2024 8:29 PM CDT 12/28/2024 3:39 AM CDT Vaughn Dee MD LAB BLOOD ORDERABLES Final Result [facility] ([place]) [address] [place] [address] * Ethanol (12/27/2024 8:29 PM CDT) Pathologist [facility] Ethanol <10 <=10 mg/dL Comment: Interpretive Data Legal limit of intoxication > or = 80 mg/dL Levels > or = 400 mg/dL are potentially TOXIC. Current interpretive data was last revised on 2018. Blood 12/27/2024 8:29 PM CDT 12/27/2024 9:07 PM CDT Vaughn Dee MD LAB BLOOD ORDERABLES Final Result Performing Organization Address [facility] Co de Phone Number [facility] ([place]) 1 [facility] [place] [address] * Acetaminophen level (12/27/2024 8:29 PM CDT) Acetaminophen <5 <=5 mcg/mL Comment: Markedly elevated levels of Acetaminophen and it's metabolites may lead to false low test results for cholesterol, HDL, triglycerides and uric acid with the manufacturers test methods used by our lab. Interpretive Data Significant hepatic injury may occur and treatment with n-acetyl cysteine is generally recommended if the acetaminophen level exceeds: 150 mcg/mL at 4 hours after ingestion 75 mcg/mL at 8 hours after ingestion 38 mcg/mL at 12 hours after ingestion 19 mcg/mL at 16 hours after ingestion Consult toxicology or poison control ([phone]) for unknown ingestion time. Current interpretive data was last revised 2023. Blood 12/27/2024 8:2 9 PM CDT 12/27/2024 9:07 PM CDT Vaughn Dee MD LAB BLOOD ORDERABLES Final Result Performing Organization Address [facility] Co de Phone Number [facility] ([place]) [address] [facility] [place] [address] * (ABNORMAL) Valproic acid level, total (12/27/2024 8:29 PM CDT) Valproic Acid 12.6(L) 50.0 - 100.0 mcg/mL Comment: Interpretive Data Therapeutic range: 50-100 mcg/mL Current interpretive data was last revised on 2014 Blood 12/27/2024 8:29 PM CDT 12/27/2024 9:07 PM CDT us Vaughn Dee MD LAB BLOOD ORDERABLES Final Result [facility] ([place]) [address] [facility] [place] [address] * (ABNORMAL) Comprehensive metabolic panel (12/27/2024 8:29 PM CDT) Sodium 138 135 - 145 mmol/L Potassium, pl 4.2 3.3 - 4.9 mmol/L [facility] ([place]) Chloride 102 97 - 110 mmol/L [facility] ([place]) CO2 19(L) 22 - 32 mmol/L [facility] ([place]) Anion gap 18(H) 2 - 15 mmol/L [facility] ([place]) BUN 11 6 - 25 mg/dL [facility] ([place]) Creatinine 0.70 0.60 - 1.10 mg/dL [facility] ([place]) Glucose 89 70 - 199 mg/dL [facility] ([place]) Comment: Interpretive Data Fasting glucose >/= 126 mg/dl is diagnostic for diabetes. Fasting is defined as no caloric intake for at least 8 hours. Fasting glucose between 100 mg/dl to 125 mg/dl is diagnostic of prediabetes. In a patient with classic symptoms of hyperglycemia or hyperglycemic crisis, a random glucose >/= 200 mg/dl is diagnostic for diabetes. In the absence of unequivocal hyperglycemia, results should be confirmed by repeat testing. The classification and Diagnosis of Diabetes Diabetes Care 2021; 46: S19-S40. Current interpretive data was last revised 2022. Calcium 9.4 8.5 - 10.3 mg/dL [facility] ([place]) Bilirubin, total <0.2 0.1 - 1.2 mg/dL [facility] ([place]) Protein, pl 7.0 6.5 - 8.5 g/dL [facility] ([place]) Albumin 3.8 3.5 - 5.0 g/dL [facility] ([place]) Alk phos 98 40 - 130 Units/L [facility] ([place]) ALT 15 7 - 45 Units/L [facility] ([place]) AST 27 10 - 45 Units/L [facility] ([place]) Comment:Slightly Hemolyzed S pecimen Blood 12/27/2024 8:29 PM CDT 12/28/2024 3:39 AM CDT us Vaughn Dee MD LAB BLOOD ORDERABLES Final Result [facility] ([place]) [address] [facility] [place] [address] * Comprehensive metabolic panel (12/27/2024 8:29 PM CDT) Sodium 136 135 - 145 mmol/L Potassium, pl 4.0 3.3 - 4.9 mmol/L [facility] ([place]) Chloride 102 97 - 110 mmol/L [facility] ([place]) CO2 22 22 - 32 mmol/L [facility] ([place]) Anion gap 12 2 - 15 mmol/L [facility] ([place]) BUN 10 6 - 25 mg/dL [facility] ([place]) Creatinine 0.73 0.60 - 1.10 mg/dL [facility] ([place]) Glucose 96 70 - 199 mg/dL [facility] ([place]) Comment: Interpretive Data Fasting glucose >/= 126 mg/dl is diagnostic for diabetes. Fasting is defined as no caloric intake for at least 8 hours. Fasting glucose between 100 mg/dl to 125 mg/dl is diagnostic of prediabetes. In a patient with classic symptoms of hyperglycemia or hyperglycemic crisis, a random glucose >/= 200 mg/dl is diagnostic for diabetes. In the absence of unequivocal hyperglycemia, results should be confirmed by repeat testing. The classification and Diagnosis of Diabetes Diabetes Care 202; 46: S19-S40. Current interpretive data was last revised 2022. Calcium 9.2 8.5 - 10.3 mg/dL [facility] ([place]) Bilirubin, total <0.2 0.1 - 1.2 mg/dL [facility] ([place]) Protein, pl 6.8 6.5 - 8.5 g/dL [facility] ([place]) Albumin 3.9 3.5 - 5.0 g/dL [facility] ([place]) Alk phos 96 40 - 130 Units/L [facility] ([place]) ALT 14 7 - 45 Units/L [facility] ([place]) AST 21 10 - 45 Units/L [facility] ([place]) Blood 12/27/2024 8:29 PM CDT 12/27/2024 9:07 PM CDT Vaughn Dee MD LAB BLOOD ORDERABLES Final Result [facility] ([place]) [address] [facility] [place] [address] * Urinalysis reflex to microscopic and culture Urine (12/27/2024 8:27 PM CDT) Color, ur Straw Yellow Clarity, ur Clear Clear [facility] ([place]) Specific gravity, ur 1.009 1.003 - 1.030 [facility] ([place]) pH, urine 8.0 [facility] ([place]) Comment: Interpretive Data U rine pH is affected by diet, medications, systemic acid-base disturbances, and renal tubular function. pH may affect urinary stone formation. For example, urine pH below 6.0 may help reduce the tendency for calcium phosphate stones and pH greater than 6.0 may reduce the tendency for uric acid stone formation. Source: [facility] Current Interpretive Data was last revised on 2017 Protein, ur ql Negative Negative [facility] ([place]) Glucose, ur ql Negative Negative [facility] ([place]) Ketones, ur Negative Negative [facility] ([place]) Bilirubin, ur Negative Negative [facility] ([place]) Blood, ur Negative Negative [facility] ([place]) Urobilinogen, ur <2.0 <2.0 mg/dL [facility] ([place]) Nitrite, ur Negative Negative [facility] ([place]) Leukocyte esterase, ur Negative Negative [facility] ([place]) UA reflex comment Reflex conditions for microscopic UA and culture not met. [facility] ([place]) Urine 12/27/2024 8:27 PM CDT 12/27/2024 9:51 PM CDT Vaughn Dee MD LAB MICROBIOLOGY - GENERAL ORDERABLES Final Result [facility] ([place]) [address] [facility] [place] [address] * (ABNORMAL) Drugs of Abuse Screen, Urine without Confirmation (12/27/2024 8:27 PM CDT) Amphetamine, ur Not Detected CutOff 500ng/mL Comment: Interpretive Data - Amphetamines: Samples containing greater than 500 ng/mL d-methamphetamine or other cross-reacting amphetamine compounds are reported as positive. Amphetamine immunoassays are subject to significant false positive rates due to cross-reactivity of non-amphetamine drugs. Confirmatory testing required for definitive results. Current Interpretive Data was last reviewed 2023. Barbiturates, ur Not Detected CutOff 200ng/mL [facility] ([place]) Comment: Interpretive Data - Barbiturates: Samples containing greater than 200 ng/mL secobarbital or other cross-reacting barbiturate compounds are reported as positive. False positive and false negative results are possible. Confirmatory testing required for definitive results. Current Interpretive Data was last reviewed 2023. Benzodiazepines, ur Screen Positive, presumptive (A) CutOff 100ng/mL [facility] ([facility]) Comment: Interpretive Data - Benzodiazepines: Samples containing greater than 100 ng/mL nordiazepam or other cross-reacting compounds are reported as positive. False positive and false negative results are possible. Confirmatory testing required for definitive results. Current Interpretive Data was last reviewed 2023. Cannabinoids, ur Not Detected CutOff 50 ng/mL [facility] ([facility]) Comment: Interpretive Data - Cannabinoids: Samples containing greater than 50 ng/mL delta-9 THC -COOH or other cross- reacting compounds are reported as positive. False positive and false negative results are possible. Confirmatory testing required for definitive results. Current Interpretive Data was last reviewed 2023. Cocaine, ur Not Detected CutOff 150ng/mL [facility] ([facility]) Comment: Interpretive Data - Cocaine: Samples containing greater than 150 ng/mL benzoylecgonine or other cross- reacting compounds are reported as positive. False positive and false negative results are possible. Confirmatory testing required for definitive results. Current Interpretive Data was last reviewed 2023. Fentanyl, Ur Not Detected CutOff 5 ng/mL [facility] ([facility]) Comment: Interpretive Data - Fentanyl: Samples containing greater than 5 ng/mL norfentanyl, fentanyl, or other cross-reacting fentanyl compounds are reported as positive. False positive and false negative results are possible. Confirmatory testing required for definitive results. Current Interpretive Data was last reviewed 2023. Methadone, ur Not Detected CutOff 300ng/mL [facility] ([facility]) Comment: Interpretive Data - Methadone: Samples containing greater than 300 ng/mL d,l-methadone or other cross-reacting compounds are reported as positive. False positive and false negative results are possible. Confirmatory testing required for definitive results. Current Interpretive Data was last reviewed 2023. Opiates, ur Not Detected CutOff 300ng/mL [facility] ([facility]) Comment: Interpretive Data - Opiates: Samples containing greater than 300 ng/mL morphine or other cross-reacting compounds are reported as positive. False positive and false negative results are possible. Confirmatory testing required for definitive results. Current Interpretive Data was last reviewed 2023. Oxycodone, ur Not Detected CutOff 100ng/mL [facility] ([facility]) Comment: Interpretive Data - Oxycodone: Samples containing greater than 100 ng/mL oxycodone or other cross-reacting compounds are reported as positive. False positive and false negative results are possible. Confirmatory testing required for definitive results. Current Interpretive Data was last reviewed 2023. Phencyclidine, ur Not Detected CutOff 25 ng/mL [facility] ([facility]) Comment: Interpretive Data - Phencyclidine: Samples containing greater than 25 ng/mL phencyclidine or other cross-reacting compounds are reported as positive. False positive and false negative results are possible. Confirmatory testing required for definitive results. Current Interpretive Data was last reviewed 2023. Urine Creatinine 38 mg/dL [facility] ([facility]) Comment: Interpretive Data Urine Creatinine: < 10 mg/dL is extremely dilute = or > 10 but < 20 mg/dL is dilute = or > 20 mg/dL is normal Current Interpretive Data was last revised on 2017. Urine 12/27/2024 8:27 PM CDT 12/27/2024 9:51 PM CDT Narrative [facility]EL PAULINO) - 12/27/2024 10:22 PM CDT Drug of Abuse screening is performed by immunoassay for medical purposes only. This is not to be used for Pain Management purposes. Vaughn Dee MD LAB URINE ORDERABLES Final Result Performing Organization Address City/[facility]/ZIP Co de Phone Number [facility] PAULINO) [address] [facility] [place] [address] * ECG 12 lead (12/27/2024 8:11 PM CDT) 12/27/2024 8:11 PM CDT Narrative [facility] - 12/30/2024 10:54 AM CDT Vent Rate: 101 bpm RR Interval: 590 msec [place] Interval: 148 msec QRS Duration: 90 msec QT Interval: 354 msec QTC Interval: 412 msec P-R-T [place]: 35 - -15 - 4 degrees IMPRESSION: SINUS TACHYCARDIA MODERATE VOLTAGE CRITERIA FOR LVH, CONSIDER NORMAL VARIANT [MEETS CRITERIA IN ONE OF: R(aVL), S(V1), R(V5), R(V5/V6)+S(V1)] ABNORMAL RHYTHM ECG Compared to prior EKG, heart rate has increased Electronically Signed By: Ariel Lanier MD Vaughn Dee MD ECG ORDERABLES Final Resul t Performing Organization Address City/[facility]/ZIP Co de Phone Number [facility] [employer] [facility] * eGFR (12/26/2024 3:51 PM CDT) eGFR >90 >=60 mL/min/1. 73 m2 Comment: Interpretive Data Reference Interval Normal >/= 90 mL/min/1.73m2 Mildly decreased* 60 - 89 mL/min/1.73m2 Mildly to moderately decreased 45 - 59 mL/min/1.73m2 Moderately to severely decreased 30 - 44 mL/min/1.73m2 Severely decreased 15 - 29 mL/min/1.73m2 Kidney Failure < 15 mL/min/1.73m2 *Relative to young adult level Estimated glomerular filtration rate is determined by the 2020 CKD-EPI equation recommended by the National Kidney Foundation (A Unifying Approach to GFR Estimation: Recommendations of the NKF-ASK Task Force on Reassessing the Inclusion of Race in Diagnosing Kidney Disease, JASN 2020). The CKD-EPI equation should not be used for patients with unstable renal function and has not been validated in children and those over 70. Current interpretive data was last reviewed 2021. Blood 12/26/2024 3:51 PM CDT 12/26/2024 7:49 PM CDT us Destiny Alfaro NP LAB BLOOD ORDERABLES Final Re sult [facility] [id number] Department [place] [address] * Differential, auto (12/26/2024 3:51 PM CDT) Neutrophil abs 3.45 1.50 - 6.50 K/cumm Imm gran abs 0.02 0.00 - 0.10 K/cumm [facility] Lymphocyte abs 1.29 0.80 - 3.30 K/cumm [facility] Monocyte abs 0.53 0.20 - 0.80 K/cumm [facility] Eosinophil abs 0.12 0.00 - 0.50 K/cumm [facility] Basophil abs 0.02 0.00 - 0.10 K/cumm [facility] Neutrophil pct 63.4 % [facility] Comment: Interpretive Data Percent cell count reference ranges are not reported, since discordance with absolute values may lead to misinterpretation of CBC data. Current Interpretive Data was last revised on 2017. Imm gran pct 0.4 % [facility] Comment: Interpretive Data Percent cell count reference ranges are not reported, since discordance with absolute values may lead to misinterpretation of CBC data. Current Interpretive Data was last revised on 2017. Lymphocyte pct 23.8 % [facility] Comment: Interpretive Data Percent cell count reference ranges are not reported, since discordance with absolute values may lead to misinterpretation of CBC data. Current Interpretive Data was last revised on 2017. Monocyte pct 9.8 % [facility] Comment: Interpretive Data Percent cell count reference ranges are not reported, since discordance with absolute values may lead to misinterpretation of CBC data. Current Interpretive Data was last revised on 2017. Eosinophil pct 2.2 % [facility] Comment: Interpretive Data Percent cell count reference ranges are not reported, since discordance with absolute values may lead to misinterpretation of CBC data. Current Interpretive Data was last revised on 2017. Basophil pct 0.4 % [facility] Comment: Interpretive Data Percent cell count reference ranges are not reported, since discordance with absolute values may lead to misinterpretation of CBC data. Current Interpretive Data was last revised on 2017. Blood 12/26/2024 3:51 PM CDT 12/26/2024 7:42 PM CDT us Destiny Alfaro NP LAB BLOOD ORDERABLES Final Re sult [facility] [address] Department [place] [address] * (ABNORMAL) CBC with auto differential (12/26/2024 3:51 PM CDT) WBC 5.43 3.80 - 9.90 K/cumm Hgb 9.4(L) 11.9 - 15.5 g/dL [facility] Hct 32.1(L) 35.6 - 45.5 % [facility] Plt 332 150 - 400 K/cumm [facility] MPV 10.0 9.1 - 12.3 fL [facility] RBC 3.98 3.90 - 5.20 M/cumm [facility] MCV 80.7(L) 81.3 - 96.4 fL [facility] MCH 23.6(L) 27.1 - 33.3 pg [facility] MCHC 29.3(L) 32.3 - 35.7 g/dL [facility] RDW CV 21.4(H) 11.1 - 14.9 % [facility] RDW SD 59.9(H) 35.7 - 48.1 fL [facility] NRBC abs 0.00 0.00 - 0.01 K/cumm [facility] Blood 12/26/2024 3:51 PM CDT 12/26/2024 7:42 PM CDT Destiny Alfaro [employer]ER LAB BLOOD ORDERABLES Final Re sult Performing Organization Address [facility] Co de Phone Number [facility]EL LEDESMA [phone] [place] [address] * TSH (12/26/2024 3:51 PM CDT) Thyroid Stimulating Hormone 2.94 0.30 - 4.20 mcIUnit/mL Blood 12/26/2024 3:51 PM CDT 12/26/2024 7:42 PM CDT Destiny Alfaro [employer] LAB BLOOD ORDERABLES Final Re sult Performing Organization Address [facility] Phone Number [place] [phone] [place] [address] * T4, free (12/26/2024 3:51 PM CDT) Free T4 1.05 0.90 - 1.70 ng/dL Blood 12/26/2024 3:51 PM CDT 12/26/2024 7:42 PM CDT Destiny Alfaro [employer] LAB BLOOD ORDERABLES Final Re sult Performing Organization Address [facility] Phone Number ESTEFAN[facility]AALLISON [id number] [place] [address] * Hemoglobin A1c (12/26/2024 3:51 PM CDT) Hgb A1C 4.7 4.0 - 5.6 % Estimated Average Glucose 88 mg/dL [facility] LEDESMA Comment: The ADA recommends reporting an estimated Average Glucose (eAG) with all Hemoglobin A1c results using the equation derived from a study of 507 normal and diabetic adults. Minority populations were underrepresented and children were not included. (Diabetes Care 31:4043-4414, 2008). The eAG is not equivalent to a fasting glucose. Blood 12/26/2024 3:51 PM CDT 12/26/2024 7:42 PM CDT Destiny Angelina [employer] LAB BLOOD ORDERABLES Final Re sult Performing Organization Address [facility] Co de Phone Number IS[place]EL LEDESMA [phone] [facility] [address] [place], [place] [id number] * Ferritin (12/26/2024 3:51 PM CDT) [facility] Ferritin 50 15 - 150 ng/mL Blood 12/26/2024 3:51 PM CDT 12/26/2024 7:42 PM CDT Destiny Angelina SCHRADER LAB BLOOD ORDERABLES Final Re sult Performing Organization Address [facility] de Phone Number ESTEFANÍAALLISON LEDESMA [phone] [facility] [place] [address] * (ABNORMAL) Valproic acid level, total (12/26/2024 3:51 PM CDT) [facility] Valproic Acid 30.1(L) 50.0 - 100.0 mcg/mL Blood 12/26/2024 3:51 PM CDT 12/26/2024 7:42 PM CDT Destiny Angelina [employer] LAB BLOOD ORDERABLES Final Re sult Performing Organization Address [facility] de Phone Number ISRAEL LEDESMA [phone] [facility] [address] [place], [place] [id number] * (ABNORMAL) Comprehensive metabolic panel (12/26/2024 3:51 PM CDT) [facility] Sodium 138 135 - 145 mmol/L Potassium, pl 4.1 3.3 - 4.9 mmol/L [facility] Chloride 104 97 - 110 mmol/L [facility] CO2 24 22 - 32 mmol/L [facility] Anion gap 10 2 - 15 mmol/L [facility] BUN 10 6 - 25 mg/dL [facility] Creatinine 0.58(L) 0.60 - 1.10 mg/dL [facility] Glucose 99 70 - 199 mg/dL [facility] Comment: Interpretive Data Fasting glucose >/= 126 mg/dl is diagnostic for diabetes. Fasting is defined as no caloric intake for at least 8 hours. Fasting glucose between 100 mg/dl to 125 mg/dl is diagnostic of prediabetes. In a patient with classic symptoms of hyperglycemia or hyperglycemic crisis, a random glucose >/= 200 mg/dl is diagnostic for diabetes. In the absence of unequivocal hyperglycemia, results should be confirmed by repeat testing. The classification and Diagnosis of Diabetes Diabetes Care 202; 46: S19-S40. Current interpretive data was last revised 2022. Calcium 8.9 8.5 - 10.3 mg/dL [facility] Bilirubin, total 0.2 0.1 - 1.2 mg/dL [facility] Protein, pl 6.8 6.5 - 8.5 g/dL [facility] Albumin 3.9 3.5 - 5.0 g/dL [facility] Alk phos 106 40 - 130 Units/L [facility] CH ALT 10 7 - 45 Units/L [facility] CH AST 27 10 - 45 Units/L [facility] Blood 12/26/2024 3:51 PM CDT 12/26/2024 7:42 PM CDT us Destiny Alfaro NP LAB BLOOD ORDERABLES Final Re sult [facility] [address] Department [place] [address] * eGFR (12/12/2024 2:54 PM CDT) eGFR >90 >=60 mL/min/1. 73 m2 Comment: Interpretive Data Reference Interval Normal >/= 90 mL/min/1.73m2 Mildly decreased* 60 - 89 mL/min/1.73m2 Mildly to moderately decreased 45 - 59 mL/min/1.73m2 Moderately to severely decreased 30 - 44 mL/min/1.73m2 Severely decreased 15 - 29 mL/min/1.73m2 Kidney Failure < 15 mL/min/1.73m2 *Relative to young adult level Estimated glomerular filtration rate is determined by the 2020 CKD-EPI equation recommended by the National Kidney Foundation (A Unifying Approach to GFR Estimation: Recommendations of the NKF-ASK Task Force on Reassessing the Inclusion of Race in Diagnosing Kidney Disease, JASN 2020). The CKD-EPI equation should not be used for patients with unstable renal function and has not been validated in children and those over 70. Current interpretive data was last reviewed 2021. Blood 12/12/2024 2:54 PM CDT 12/12/2024 3:22 PM CDT us Destiny Alfaro NP LAB BLOOD ORDERABLES Final Re sult [facility] ([place]) [address] [facility] [place] [address] * Differential, auto (12/12/2024 2:54 PM CDT) Neutrophil abs 2.95 1.50 - 6.50 K/cumm Imm gran abs 0.01 0.00 - 0.10 K/cumm [facility] ([facility]) Lymphocyte abs 1.28 0.80 - 3.30 K/cumm [facility] ([facility]) Monocyte abs 0.39 0.20 - 0.80 K/cumm [facility] ([place]) Eosinophil abs 0.13 0.00 - 0.50 K/cumm [facility] ([place]) Basophil abs 0.04 0.00 - 0.10 K/cumm [facility] ([place]) Neutrophil pct 61.5 % [facility] ([place]) Comment: Interpretive Data Percent cell count reference ranges are not reported, since discordance with absolute values may lead to misinterpretation of CBC data. Current Interpretive Data was last revised on 2017. Imm gran pct 0.2 % [facility] ([place]) Comment: Interpretive Data Percent cell count reference ranges are not reported, since discordance with absolute values may lead to misinterpretation of CBC data. Current Interpretive Data was last revised on 2017. Lymphocyte pct 26.7 % [facility] ([facility]) Comment: Interpretive Data Percent cell count reference ranges are not reported, since discordance with absolute values may lead to misinterpretation of CBC data. Current Interpretive Data was last revised on 2017. Monocyte pct 8.1 % [facility] ([facility]) Comment: Interpretive Data Percent cell count reference ranges are not reported, since discordance with absolute values may lead to misinterpretation of CBC data. Current Interpretive Data was last revised on 2017. Eosinophil pct 2.7 % [facility] ([facility]) Comment: Interpretive Data Percent cell count reference ranges are not reported, since discordance with absolute values may lead to misinterpretation of CBC data. Current Interpretive Data was last revised on 2017. Basophil pct 0.8 % [facility] ([facility]) Comment: Interpretive Data Percent cell count reference ranges are not reported, since discordance with absolute values may lead to misinterpretation of CBC data. Current Interpretive Data was last revised on 2017. Blood 12/12/2024 2:54 PM CDT 12/12/2024 3:06 PM CDT us Destiny Alfaro NP LAB BLOOD ORDERABLES Final Re sult [facility] ([place]) [address] [facility] Department [place] [address] * (ABNORMAL) CBC with auto differential (12/12/2024 2:54 PM CDT) WBC 4.80 3.80 - 9.90 K/cumm Hgb 8.5(L) 11.9 - 15.5 g/dL [facility] ([facility]) Hct 29.4(L) 35.6 - 45.5 % [facility] ([facility]) Plt 269 150 - 400 K/cumm [facility] ([facility]) MPV 10.1 9.1 - 12.3 fL [facility] ([facility]) RBC 3.79(L) 3.90 - 5.20 M/cumm [facility] ([place]) MCV 77.6(L) 81.3 - 96.4 fL [facility] ([place]) MCH 22.4(L) 27.1 - 33.3 pg [facility] ([place]) MCHC 28.9(L) 32.3 - 35.7 g/dL [facility] ([place]) RDW CV 17.5(H) 11.1 - 14.9 % [facility] ([place]) RDW SD 49.7(H) 35.7 - 48.1 fL [facility] NRBC abs 0.00 0.00 - 0.01 K/cumm [facility] ([facility]) Blood 12/12/2024 2:54 PM CDT 12/12/2024 3:06 PM CDT us Destiny Alfaro NP LAB BLOOD ORDERABLES Final Re sult [facility] ([place]) [address] [facility] [place] [address] * (ABNORMAL) Comprehensive metabolic panel (12/12/2024 2:54 PM CDT) Sodium 138 135 - 145 mmol/L Potassium, pl 4.2 3.3 - 4.9 mmol/L [facility] Chloride 102 97 - 110 mmol/L [facility] ([facility] CO2 20(L) 22 - 32 mmol/L [facility] ([place]) Anion gap 16(H) 2 - 15 mmol/L [facility] BUN 11 6 - 25 mg/dL [facility] ([place]) Creatinine 0.62 0.60 - 1.10 mg/dL [facility] ([place]) Glucose 87 70 - 199 mg/dL [facility] ([facility] Comment: Interpretive Data Fasting glucose >/= 126 mg/dl is diagnostic for diabetes. Fasting is defined as no caloric intake for at least 8 hours. Fasting glucose between 100 mg/dl to 125 mg/dl is diagnostic of prediabetes. In a patient with classic symptoms of hyperglycemia or hyperglycemic crisis, a random glucose >/= 200 mg/dl is diagnostic for diabetes. In the absence of unequivocal hyperglycemia, results should be confirmed by repeat testing. The classification and Diagnosis of Diabetes Diabetes Care 2021; 46: S19-S40. Current interpretive data was last revised 2022. Calcium 8.5 8.5 - 10.3 mg/dL [facility] Bilirubin, total <0.2 0.1 - 1.2 mg/dL [facility] ([place]) Protein, pl 6.5 6.5 - 8.5 g/dL [facility] ([place]) Albumin 3.5 3.5 - 5.0 g/dL [facility] ([place]) Alk phos 111 40 - 130 Units/L [facility] ([place]) ALT 17 7 - 45 Units/L [facility] ([place]) AST 22 10 - 45 Units/L [facility] ([place]) Comment:Slightly Hemolyzed S pecimen Blood 12/12/2024 2:54 PM CDT 12/12/2024 3:06 PM CDT Destiny Alfaro NP LAB BLOOD ORDERABLES Final Re sult [facility] [address] [facility] [place] [address] * POCT hCG, urine (12/08/2024 7:52 PM CDT) HCG, ur, POC Negative Negative Lot Number [id number] QC Backgroud Clear Acceptable QC Control Line Acceptable Urine 12/08/2024 7:52 PM CDT Christopher Baca NP POINT OF CARE TEST ORDERABL ES Final Result * (ABNORMAL) Drugs of Abuse Screen, Urine without Confirmation (12/08/2024 7:51 PM CDT) Amphetamine, ur Not Detected CutOff 500ng/mL Comment: Interpretive Data - Amphetamines: Samples containing greater than 500 ng/mL d-methamphetamine or other cross-reacting amphetamine compounds are reported as positive. Amphetamine immunoassays are subject to significant false positive rates due to cross-reactivity of non-amphetamine drugs. Confirmatory testing required for definitive results. Current Interpretive Data was last reviewed 2023. Barbiturates, ur Not Detected CutOff 200ng/mL [facility] ([place]) Comment: Interpretive Data - Barbiturates: Samples containing greater than 200 ng/mL secobarbital or other cross-reacting barbiturate compounds are reported as positive. False positive and false negative results are possible. Confirmatory testing required for definitive results. Current Interpretive Data was last reviewed 2023. Benzodiazepines, ur Screen Positive, presumptive (A) CutOff 100ng/mL [facility] ([place]) Comment: Interpretive Data - Benzodiazepines: Samples containing greater than 100 ng/mL nordiazepam or other cross-reacting compounds are reported as positive. False positive and false negative results are possible. Confirmatory testing required for definitive results. Current Interpretive Data was last reviewed 2023. Cannabinoids, ur Not Detected CutOff 50 ng/mL [facility] ([place]) Comment: Interpretive Data - Cannabinoids: Samples containing greater than 50 ng/mL delta-9 THC -COOH or other cross- reacting compounds are reported as positive. False positive and false negative results are possible. Confirmatory testing required for definitive results. Current Interpretive Data was last reviewed 2023. Cocaine, ur Not Detected CutOff 150ng/mL [facility] ([place]) Comment: Interpretive Data - Cocaine: Samples containing greater than 150 ng/mL benzoylecgonine or other cross- reacting compounds are reported as positive. False positive and false negative results are possible. Confirmatory testing required for definitive results. Current Interpretive Data was last reviewed 2023. Fentanyl, Ur Not Detected CutOff 5 ng/mL [facility] ([place]) Comment: Interpretive Data - Fentanyl: Samples containing greater than 5 ng/mL norfentanyl, fentanyl, or other cross-reacting fentanyl compounds are reported as positive. False positive and false negative results are possible. Confirmatory testing required for definitive results. Current Interpretive Data was last reviewed 2023. Methadone, ur Not Detected CutOff 300ng/mL [facility] ([place]) Comment: Interpretive Data - Methadone: Samples containing greater than 300 ng/mL d,l-methadone or other cross-reacting compounds are reported as positive. False positive and false negative results are possible. Confirmatory testing required for definitive results. Current Interpretive Data was last reviewed 2023. Opiates, ur Not Detected CutOff 300ng/mL [facility] ([place]) Comment: Interpretive Data - Opiates: Samples containing greater than 300 ng/mL morphine or other cross-reacting compounds are reported as positive. False positive and false negative results are possible. Confirmatory testing required for definitive results. Current Interpretive Data was last reviewed 2023. Oxycodone, ur Not Detected CutOff 100ng/mL [facility] ([place]) Comment: Interpretive Data - Oxycodone: Samples containing greater than 100 ng/mL oxycodone or other cross-reacting compounds are reported as positive. False positive and false negative results are possible. Confirmatory testing required for definitive results. Current Interpretive Data was last reviewed 2023. Phencyclidine, ur Not Detected CutOff 25 ng/mL [facility] BET[facility] ([place]) Comment: Interpretive Data - Phencyclidine: Samples containing greater than 25 ng/mL phencyclidine or other cross-reacting compounds are reported as positive. False positive and false negative results are possible. Confirmatory testing required for definitive results. Current Interpretive Data was last reviewed 2023. Urine Creatinine 222 mg/dL [facility]A [facility] ([place]) Comment: Interpretive Data Urine Creatinine: < 10 mg/dL is extremely dilute = or > 10 but < 20 mg/dL is dilute = or > 20 mg/dL is normal Current Interpretive Data was last revised on 2017. Urine 12/08/2024 7:51 PM CDT 12/08/2024 7:55 PM CDT Narrative [facility] ([place]) - 12/08/2024 8:35 PM CDT Drug of Abuse screening is performed by immunoassay for medical purposes only. This is not to be used for Pain Management purposes. Christopher Baca NP LAB URINE ORDERABLES Final Result ISRAEL BETANCUR (ASH FORK) 1 [facility] [place] [address] * (ABNORMAL) Urinalysis reflex to microscopic and culture Urine (12/08/2024 7:48 PM CDT) Color, ur Yellow Yellow Clarity, ur Clear Clear ISRAEL Burgos (ASH FORK) Specific gravity, ur 1.036(H) 1.003 - 1.030 [facility] ([place]) pH, urine 6.0 [facility] ([place]) Comment: Interpretive Data U rine pH is affected by diet, medications, systemic acid-base disturbances, and renal tubular function. pH may affect urinary stone formation. For example, urine pH below 6.0 may help reduce the tendency for calcium phosphate stones and pH greater than 6.0 may reduce the tendency for uric acid stone formation. Source: [facility] [place] Current Interpretive Data was last revised on 2017 Protein, ur ql Trace Negative [facility] ([place]) Glucose, ur ql Negative Negative [facility] ([place]) Ketones, ur Negative Negative [facility] ([place]) Bilirubin, ur Negative Negative [facility] ([place]) Blood, ur Negative Negative [facility] ([place]) Urobilinogen, ur 2.0(A) <2.0 mg/dL [facility] ([place]) Nitrite, ur Negative Negative [facility] ([place]) Leukocyte esterase, ur Negative Negative [facility] ([place]) UA reflex comment Reflex conditions for microscopic UA and culture not met. [facility] ([place]) Urine 12/08/2024 7:48 PM CDT 12/08/2024 7:55 PM CDT us Christopher Baca NP LAB MICROBIOLOGY - GENERAL ORDERABLES Final Result [facility] ([place]) [address] [facility] [place] [address] * eGFR (12/08/2024 7:08 PM CDT) eGFR >90 >=60 mL/min/1. 73 m2 Comment: Interpretive Data Reference Interval Normal >/= 90 mL/min/1.73m2 Mildly decreased* 60 - 89 mL/min/1.73m2 Mildly to moderately decreased 45 - 59 mL/min/1.73m2 Moderately to severely decreased 30 - 44 mL/min/1.73m2 Severely decreased 15 - 29 mL/min/1.73m2 Kidney Failure < 15 mL/min/1.73m2 *Relative to young adult level Estimated glomerular filtration rate is determined by the 2020 CKD-EPI equation recommended by the National Kidney Foundation (A Unifying Approach to GFR Estimation: Recommendations of the NKF-ASK Task Force on Reassessing the Inclusion of Race in Diagnosing Kidney Disease, JASN 2020). The CKD-EPI equation should not be used for patients with unstable renal function and has not been validated in children and those over 70. Current interpretive data was last reviewed 2021. Blood 12/08/2024 7:08 PM CDT 12/08/2024 7:10 PM CDT us Christopher Baca G[employer] HANGER LAB BLOOD ORDERABLES Final Result ISRAEL BETANCUR ([place]) [address] [facility] [place] [address] * (ABNORMAL) Differential, auto (12/08/2024 7:08 PM CDT) Neutrophil abs 2.74 1.50 - 6.50 K/cumm Imm gran abs 0.02 0.00 - 0.10 K/cumm [facility] ([place]) Lymphocyte abs 0.58(L) 0.80 - 3.30 K/cumm [facility] ([place]) Monocyte abs 0.56 0.20 - 0.80 K/cumm [facility] ([place]) Eosinophil abs 0.08 0.00 - 0.50 K/cumm [facility] ([place]) Basophil abs 0.02 0.00 - 0.10 K/cumm [facility] ([place]) Neutrophil pct 68.5 % [facility] ([place]) Comment: Interpretive Data Percent cell count reference ranges are not reported, since discordance with absolute values may lead to misinterpretation of CBC data. Current Interpretive Data was last revised on 2017. Imm gran pct 0.5 % [facility] ([place]) Comment: Interpretive Data Percent cell count reference ranges are not reported, since discordance with absolute values may lead to misinterpretation of CBC data. Current Interpretive Data was last revised on 2017. Lymphocyte pct 14.5 % [facility] ([place]) Comment: Interpretive Data Percent cell count reference ranges are not reported, since discordance with absolute values may lead to misinterpretation of CBC data. Current Interpretive Data was last revised on 2017. Monocyte pct 14.0 % [facility] ([place]) Comment: Interpretive Data Percent cell count reference ranges are not reported, since discordance with absolute values may lead to misinterpretation of CBC data. Current Interpretive Data was last revised on 2017. Eosinophil pct 2.0 % [facility] ([place]) Comment: Interpretive Data Percent cell count reference ranges are not reported, since discordance with absolute values may lead to misinterpretation of CBC data. Current Interpretive Data was last revised on 2017. Basophil pct 0.5 % [facility] ([place]) Comment: Interpretive Data Percent cell count reference ranges are not reported, since discordance with absolute values may lead to misinterpretation of CBC data. Current Interpretive Data was last revised on 2017. Blood 12/08/2024 7:08 PM CDT 12/08/2024 7:10 PM CDT us Christopher Baca [employer] LAB BLOOD ORDERABLES Final Result ISRAEL BETANCUR ([place]) [address] [facility] [place] [address] * (ABNORMAL) CBC with auto differential (12/08/2024 7:08 PM CDT) WBC 4.00 3.80 - 9.90 K/cumm Hgb 7.8(L) 11.9 - 15.5 g/dL [facility] ([place]) Hct 26.0(L) 35.6 - 45.5 % [facility] ([place]) Plt 187 150 - 400 K/cumm [facility] ([place]) MPV 9.7 9.1 - 12.3 fL [facility] ([place]) RBC 3.45(L) 3.90 - 5.20 M/cumm [facility] ([place]) MCV 75.4(L) 81.3 - 96.4 fL [facility] ([place]) MCH 22.6(L) 27.1 - 33.3 pg [facility] ([place]) MCHC 30.0(L) 32.3 - 35.7 g/dL [facility] ([place]) RDW CV 17.2(H) 11.1 - 14.9 % [facility] ([place]) RDW SD 46.5 35.7 - 48.1 fL [facility] ([place]) NRBC abs 0.00 0.00 - 0.01 K/cumm [facility] ([place]) Blood 12/08/2024 7:08 PM CDT 12/08/2024 7:10 PM CDT us Christopher Baca NP LAB BLOOD ORDERABLES Final Result [facility] ([place]) [address] [facility] [place] [address] * (ABNORMAL) Comprehensive metabolic panel (12/08/2024 7:08 PM CDT) Sodium 136 135 - 145 mmol/L Potassium, pl 3.1(L) 3.3 - 4.9 mmol/L [facility] ([place]) Chloride 101 97 - 110 mmol/L [facility] ([place]) CO2 23 22 - 32 mmol/L [facility] ([place]) Anion gap 12 2 - 15 mmol/L [facility] ([place]) BUN 10 6 - 25 mg/dL [facility] ([place]) Creatinine 0.70 0.60 - 1.10 mg/dL [facility] ([place]) Glucose 99 70 - 199 mg/dL [facility] ([place]) Comment: Interpretive Data Fasting glucose >/= 126 mg/dl is diagnostic for diabetes. Fasting is defined as no caloric intake for at least 8 hours. Fasting glucose between 100 mg/dl to 125 mg/dl is diagnostic of prediabetes. In a patient with classic symptoms of hyperglycemia or hyperglycemic crisis, a random glucose >/= 200 mg/dl is diagnostic for diabetes. In the absence of unequivocal hyperglycemia, results should be confirmed by repeat testing. The classification and Diagnosis of Diabetes Diabetes Care 2021; 46: S19-S40. Current interpretive data was last revised 2022. Calcium 8.5 8.5 - 10.3 mg/dL [facility] ([place]) Bilirubin, total 0.2 0.1 - 1.2 mg/dL [facility] ([place]) Protein, pl 6.5 6.5 - 8.5 g/dL [facility] ([place]) Albumin 3.7 3.5 - 5.0 g/dL [facility] ([place]) Alk phos 96 40 - 130 Units/L [facility] ([place]) ALT 12 7 - 45 Units/L [facility] ([place]) AST 20 10 - 45 Units/L [facility] ([place]) Blood 12/08/2024 7:08 PM CDT 12/08/2024 7:10 PM CDT Christopher Baca G[employer]ER LAB BLOOD ORDERABLES Final Result [facility] ([place]) [address] [facility] Department of Laboratories [place] [id number] * Influenza A/B, RSV, and COVID-19 PCR Nasopharyngeal (12/08/2024 6:52 PM CDT) COVID-19 RNA Negative Negative Influenza A RNA Negative Negative [facility] ([place]) Influenza B RNA Negative Negative [facility] ([place]) RSV RNA Negative Negative [facility] ([place]) Comment: Interpretive data: Testing performed by [facility]. This test is performed using the Mismi Xpert Xpress CoV-2/Flu/RSV plus assay. This is a multiplex, real- time reverse transcriptase PCR assay intended for the qualitative detection of nucleic acid from SARS-CoV-2, influenza A, influenza B, and respiratory syncytial virus. This assay has been cleared by the [place] Food and Drug administration. The performance characteristics have been verified by the [facility]. Results must be considered in the clinical context, and a negative result does not rule out infection. Interpretive Data last revised 2023 Nasopharyngeal 12/08/2024 6: 52 PM CDT 12/08/2024 6:54 PM CDT Narrative [facility] PAULINO) - 12/08/2024 7:44 PM CDT Is the Patient experiencing symptoms consistent with COVID?->Unknown Christopher Baca NP LAB MICROBIOLOGY - GENERAL ORDERABLES Final Result Performing Organization Address [facility] de Phone Number ISRAEL PENAN) 1 [facility] [place] [address] * Streptococcus Group A PCR Throat (12/08/2024 6:52 PM CDT) Pathologist [facility] Strep A DNA Not Detected Not Detected Comment: This test is performed using the Mismi Xpert Group A Streptococcal Assay. This is a qualitative, real-time PCR assay that detects Group A Strep using throat specimens from patients suspected of having streptococcal pharyngitis. This assay does not detect other beta-hemolytic streptococci including Group C or Group G. Group C and G have been associated with pharyngitis and, occasionally, acute nephritis but do not cause rheumatic fever. If suspected, order Throat Culture, Routine. This assay has been cleared by the US Food and Drug Administration, and its performance characteristics have been verified by the performing laboratory. Throat 12/08/2024 6:52 PM CDT 12/08/2024 6:54 PM CDT Christopher Baca NP LAB MICROBIOLOGY - GENERAL ORDERABLES Final Result Performing Organization Address [facility] de Phone Number ISRAEL BETANCUR ([place]) 1 [facility] [place] [address] * Transfuse RBC (12/07/2024 1:36 PM CDT) Blood Sujit Back MD BLOOD TRANSFUSION ORDERABLES Final Result Performing Organization Address [facility] Co de Phone Number ISRAEL BETANCUR (ASH FORK) 1 [facility] [place] [address] * Prepare RBC: 1 Units (12/07/2024 10:36 AM CDT) Pathologist [facility] Units requested 1 Units requested Ready ISRAEL PENAN) Unit Number [id number] Product code [id number] ISRAEL BETANCUR (BERT[place]) Blood Expiration Date [id number] ISRAEL BETANCUR ([place]) Product Blood Type (for scanning) 9500 ISRAEL BETANCUR ([place]) Product Blood Type ONEG ISRAEL BETANCUR ([place]) Dispense Status DISPENSED ISRAEL BETANCUR ([place]) Blood 12/07/2024 10:3 6 AM CDT 12/07/2024 10:36 AM CDT Sujit Back MD BLOOD BANK PRODUCT ORDERABLE S Final Result ISRAEL BETANCUR ([place]) 1 [facility] [place] [address] * (ABNORMAL) Iron profile w/ IBC (12/07/2024 9:47 AM CDT) Iron 19(L) 35 - 145 mcg/dL TIBC 373 250 - 400 mcg/dL ISRAEL BETANCUR ([place]) Transferrin saturation 5(L) 20 - 50 % ISRAEL BETANCUR ([place]) Blood 12/07/2024 9:47 AM CDT 12/07/2024 9:51 AM CDT Sujit Back MD LAB BLOOD ORDERABLES Final R esult ISRAEL BETANCUR ([place]) 1 [facility] [place] [address] * ABO/Rh (12/07/2024 9:47 AM CDT) ABO/Rh O Negative Blood 12/07/2024 9:47 AM CDT 12/07/2024 9:51 AM CDT Narrative ISRAEL BETANCUR ([place]) - 12/07/2024 10:27 AM CDT Has the patient had Daratumumab or Isatuximab in the past 6 months?->Unknown Sujit Back MD LAB BLOOD BANK TEST ORDERABL ES Final Result Performing Organization Address [facility] Co de Phone Number ISRAEL [facility] (ASH FORK) [address] [place] [address] * Crossmatch (12/07/2024 9:47 AM CDT) Crossmatch Compatible ISRAEL Aubrey (ASH FORK) Unit number for crossmatch [id number] [facility] Blood 12/07/2024 9:47 AM CDT 12/07/2024 9:51 AM CDT Sujit Back MD LAB BLOOD BANK TEST ORDERABL ES Final Result Performing Organization Address [facility] de Phone Number ISRAEL [facility] ([place]) [address] [place] [id number] * Antibody screen (12/07/2024 9:47 AM CDT) Dorothy, indirect, Gel Interpretation Negative ABSC Blood 12/07/2024 9:47 AM CDT 12/07/2024 9:51 AM CDT Narrative [facility] ([place] - 12/07/2024 10:27 AM CDT Has the patient had Daratumumab or Isatuximab in the past 6 months?->Unknown Sujit Back MD LAB BLOOD BANK TEST ORDERABL ES Final Result Performing Organization Address [facility] Co de Phone Number ISRAEL [facility] ([place]) [address] [place] [address] * Troponin T high-sensitivity series (baseline, 2hr, 4hr, 6hr) (12/07/2024 9:06 AM CDT) Pathologist [facility] Trop T hs <6 <=14 ng/L Comment: Interpretive Data For further hscTnT resources including the diagnostic algorithm and an aid in interpretation, copy and paste this link: [email or web address].testcatalog.org/show/[email or web address] Current Interpretive Data last revised 2020. Blood 12/07/2024 9:06 AM CDT 12/07/2024 9:08 AM CDT Sujit Back MD LAB BLOOD ORDERABLES Final R esult Performing Organization Address City/[facility]/ZIP Co de Phone Number ISRAEL BETANCUR ([place]) 1 [facility] [place] [address] * eGFR (12/07/2024 9:06 AM CDT) eGFR 88 >=60 mL/min/1. 73 m2 Comment: Interpretive Data Reference Interval Normal >/= 90 mL/min/1.73m2 Mildly decreased* 60 - 89 mL/min/1.73m2 Mildly to moderately decreased 45 - 59 mL/min/1.73m2 Moderately to severely decreased 30 - 44 mL/min/1.73m2 Severely decreased 15 - 29 mL/min/1.73m2 Kidney Failure < 15 mL/min/1.73m2 *Relative to young adult level Estimated glomerular filtration rate is determined by the 2020 CKD-EPI equation recommended by the National Kidney Foundation (A Unifying Approach to GFR Estimation: Recommendations of the NKF-ASK Task Force on Reassessing the Inclusion of Race in Diagnosing Kidney Disease, JASN 2020). The CKD-EPI equation should not be used for patients with unstable renal function and has not been validated in children and those over 70. Current interpretive data was last reviewed 2021. Blood 12/07/2024 9:06 AM CDT 12/07/2024 9:08 AM CDT Sujit Back MD LAB BLOOD ORDERABLES Final R esult ISRAEL BETANCUR ([place]) 1 [facility] [place] [address] * Differential, auto (12/07/2024 9:06 AM CDT) Neutrophil abs 3.42 1.50 - 6.50 K/cumm Imm gran abs 0.01 0.00 - 0.10 K/cumm [facility] ([place]) Lymphocyte abs 1.20 0.80 - 3.30 K/cumm [facility] ([place]) Monocyte abs 0.59 0.20 - 0.80 K/cumm [facility] ([place]) Eosinophil abs 0.10 0.00 - 0.50 K/cumm [facility] ([place]) Basophil abs 0.03 0.00 - 0.10 K/cumm [facility] ([place]) Neutrophil pct 63.9 % [facility] ([place]) Comment: Interpretive Data Percent cell count reference ranges are not reported, since discordance with absolute values may lead to misinterpretation of CBC data. Current Interpretive Data was last revised on 2017. Imm gran pct 0.2 % [facility] ([place]) Comment: Interpretive Data Percent cell count reference ranges are not reported, since discordance with absolute values may lead to misinterpretation of CBC data. Current Interpretive Data was last revised on 2017. Lymphocyte pct 22.4 % [facility] ([place]) Comment: Interpretive Data Percent cell count reference ranges are not reported, since discordance with absolute values may lead to misinterpretation of CBC data. Current Interpretive Data was last revised on 2017. Monocyte pct 11.0 % [facility] ([place]) Comment: Interpretive Data Percent cell count reference ranges are not reported, since discordance with absolute values may lead to misinterpretation of CBC data. Current Interpretive Data was last revised on 2017. Eosinophil pct 1.9 % [facility] ([place]) Comment: Interpretive Data Percent cell count reference ranges are not reported, since discordance with absolute values may lead to misinterpretation of CBC data. Current Interpretive Data was last revised on 2017. Basophil pct 0.6 % [facility] ([place]) Comment: Interpretive Data Percent cell count reference ranges are not reported, since discordance with absolute values may lead to misinterpretation of CBC data. Current Interpretive Data was last revised on 2017. Blood 12/07/2024 9:06 AM CDT 12/07/2024 9:08 AM CDT Sujit Back MD LAB BLOOD ORDERABLES Final R esult [facility] ([place]) [address] [facility] [place] [address] * (ABNORMAL) CBC with auto differential (12/07/2024 9:06 AM CDT) WBC 5.35 3.80 - 9.90 K/cumm Hgb 7.0(L) 11.9 - 15.5 g/dL [facility] ([place]) Hct 24.2(L) 35.6 - 45.5 % [facility] ([place]) Plt 246 150 - 400 K/cumm [facility] ([place]) MPV 9.5 9.1 - 12.3 fL [facility] ([place]) RBC 3.23(L) 3.90 - 5.20 M/cumm [facility] ([place]) MCV 74.9(L) 81.3 - 96.4 fL [facility] ([place]) MCH 21.7(L) 27.1 - 33.3 pg [facility] ([place]) MCHC 28.9(L) 32.3 - 35.7 g/dL [facility] ([place]) RDW CV 17.3(H) 11.1 - 14.9 % [facility] ([place]) RDW SD 46.7 35.7 - 48.1 fL [facility] ([place]) NRBC abs 0.00 0.00 - 0.01 K/cumm [facility] ([place]) Blood 12/07/2024 9:06 AM CDT 12/07/2024 9:08 AM CDT Sujit Back MD LAB BLOOD ORDERABLES Final R esult ISRAEL BETANCUR ([place]) [address] [facility] [place] [address] * Magnesium (12/07/2024 9:06 AM CDT) Magnesium 2.1 1.4 - 2.5 mg/dL Blood 12/07/2024 9:06 AM CDT 12/07/2024 9:08 AM CDT us Sujit Back MD LAB BLOOD ORDERABLES Final R esult ISRAEL BETANCUR ([place]) [address] [facility] [place] [address] * (ABNORMAL) Comprehensive metabolic panel (12/07/2024 9:06 AM CDT) Sodium 137 135 - 145 mmol/L Potassium, pl 3.6 3.3 - 4.9 mmol/L [facility] ([place]) Chloride 101 97 - 110 mmol/L [facility] ([place]) CO2 22 22 - 32 mmol/L [facility] ([place]) Anion gap 13 2 - 15 mmol/L [facility] ([place]) BUN 15 6 - 25 mg/dL [facility] ([place]) Creatinine 0.90 0.60 - 1.10 mg/dL [facility] ([place]) Glucose 89 70 - 199 mg/dL [facility] ([place]) Comment: Interpretive Data Fasting glucose >/= 126 mg/dl is diagnostic for diabetes. Fasting is defined as no caloric intake for at least 8 hours. Fasting glucose between 100 mg/dl to 125 mg/dl is diagnostic of prediabetes. In a patient with classic symptoms of hyperglycemia or hyperglycemic crisis, a random glucose >/= 200 mg/dl is diagnostic for diabetes. In the absence of unequivocal hyperglycemia, results should be confirmed by repeat testing. The classification and Diagnosis of Diabetes Diabetes Care 2021; 46: S19-S40. Current interpretive data was last revised 2022. Calcium 8.5 8.5 - 10.3 mg/dL [facility] ([place]) Bilirubin, total <0.2 0.1 - 1.2 mg/dL [facility] ([place]) Protein, pl 6.3(L) 6.5 - 8.5 g/dL [facility] ([place]) Albumin 3.7 3.5 - 5.0 g/dL [facility] ([place]) Alk phos 92 40 - 130 Units/L [facility] ([place]) ALT 10 7 - 45 Units/L [facility] ([place]) AST 18 10 - 45 Units/L [facility] ([place]) Blood 12/07/2024 9:06 AM CDT 12/07/2024 9:08 AM CDT Sujit Back MD LAB BLOOD ORDERABLES Final R esult ISRAEL BETANCUR ([place]) [address] [facility] [place] [address] * ECG 12 lead (12/07/2024 8:46 AM CDT) 12/07/2024 8:46 AM CDT Narrative [facility] - 12/07/2024 6:09 PM CDT Vent Rate: 62 bpm RR Interval: 955 msec [place] Interval: 143 msec QRS Duration: 94 msec QT Interval: 452 msec QTC Interval: 458 msec P-R-T [place]: 38 - 9 - 29 degrees IMPRESSION: SINUS RHYTHM LOW QRS VOLTAGE IN PRECORDIAL LEADS [QRS DEFLECTION < 1.0 mV IN CHEST LEADS] POSSIBLE RIGHT VENTRICULAR CONDUCTION DELAY [RSR (QR) IN V1/V2] prolonged QT intervall BORDERLINE ECG Compared to prior EKG, QT interval has increased Electronically Signed By: Ariel Lanier MD Sujit Back MD ECG ORDERABLES Final Result Performing Organization Address [facility]/ZIP Co de Phone Number [facility] * Hepatitis C antibody Blood (11/13/2024 9:21 PM CDT) Hep C Ab Nonreactive Nonreactive Comment:Antibodies to HCV no t detected. Does NOT exclude the possibility of recent exposure to HCV. Current interpretive data was last revised on 22 Blood 11/13/2024 9:21 PM CDT 11/13/2024 9:35 PM CDT Jose Bell MD PhD LAB MICROBIOLOGY - GENERAL ORDERABLES Final Result Performing Organization Address City/[facility]/ZIP Co de Phone Number ISRAEL [facility] [place] [address] from Last 3 Months or Most Recently Relevant to Health Maintenance Insurance [facility] IDPA [facility] MEDICARE ADVANTAGE [facility] Address: [address] [address] [place] [address] IDPA [facility] MEDICARE ADVANTAGE [facility] Address: [address] [address] [place] [address] Advance Directives For more information, please contact: [phone] * Full Code (Latest Code Status on File) Date Activated Date Inactivated Comments 02/15/2025 7:32 PM 02/21/2025 6:53 PM * Full Code Date Activated Date Inactivated Comments 01/10/2025 8:34 AM 01/11/2025 4:48 AM * Full Code Date Activated Date Inactivated Comments 12/28/2024 6:29 AM 12/30/2024 5:16 PM * Full Code Date Activated Date Inactivated Comments 11/12/2024 7:01 PM 11/14/2024 5:43 PM * Full Code Date Activated Date Inactivated Comments 11/10/2024 4:51 PM 11/12/2024 6:44 PM Care Teams Geosciences Associate Professor Relationship Specialty Start Date End Date Destiny Alfaro NP [address] [place] [address] PCP - General Internal Medicine 11/05/24 Bushra Lyman MD [address] [place] [address] [place] [address] 08/01/18 Alexy Molina MD [address] [place] [address] [address] [facility] [address] [facility] [address] [place] [address] Neurologist Neurology 09/01/18 [place] [address] [facility] [address] [place] [address] Psychiatrist Psychiatry & Neurology 09/01/18 Dayne Aiken DO [address] [place] [id number] Medical Oncologist/Counter Stitcher Hematology and Oncology 03/05/24 Carmelo Huang MD [address] [place] [address] [address] [place] [address] Consulting Physician Neurology 02/21/25
--- OUTSIDE RECORDS SUMMARY | 2025-02-24 18:23 | XMS_ITS | Referral Summary ---
Author Organization Formerly [facility] Address [address] [place] [address] Care Team Providers Care Computer Laboratory Technician Name Role Phone Bushra Lyman MD Unavailable [phone] Alexy Molina MD Unavailable Henrik Qureshi MD Unavailable Dayne Aiken DO Unavailable Detsiny Alfaro NP Primary Care Provider [phone] Carmelo Huang MD Unavailable [phone] Encounters Date Type Department Care Team Description 02/23/2025 Nurse Triage [facility] Primary Care at [address] [address] Destiny Alfaro NP 02/22/2025 Nurse Triage [facility] Patient Access [address] [place] [address] Laurie Blas RN 02/15/2025 12:48 PM CDT - 02/21/2025 2:53 PM CDT Hospital Encounter [facility] Medical [address] [address] Quincy Hubbard MD Lo Bianco, Salvador, MD Sargsyan, Narine, MD Petters, Ekanga Sunday, MD Alcohol withdrawal, uncomplicated (HCC) [F10.930] (Primary Dx); Seizure disorder (HCC); Alcohol withdrawal, uncomplicated (HCC); Anxiety Discharge Disposition: Discharge to home or self care 02/19/2025 Documentation [facility] Warm Hand Off Program [address] [place] [address] Dakota Sutherland 02/18/2025 Documentation [facility] Warm Hand Off Program [address] [place] [address] Lucy Sanchez 02/18/2025 Telephone [facility] Scheduling [address] [place] [address] Silvia Vasquez 02/15/2025 [facility] Warm Hand Off Program [address] [place] [address] Dakota Sutherland 02/15/2025 11:30 AM CDT Lab [address] [address] 02/15/2025 Nurse Triage [facility] Primary Care at [address] [address] Destiny Alfaro NP 02/11/2025 [facility] Initial Eligibility [facility] Warm Hand Off Program [address] [place] [address] Danny Pepe RRT 01/31/2025 1:16 PM CDT - 01/31/2025 11:59 PM CDT Hospital Encounter [facility]ILL[facility] Emergency, Room R Discharge Disposition: Discharge to home or self care 01/31/2025 1:28 PM CDT - 01/31/2025 5:19 PM CDT Emergency [facility] Emergency Department [address] [place] [id number] Seizure-like activity (HCC) (Primary Dx) Discharge Disposition: Discharge to home or self care 01/16/2025 5:45 PM CDT Office Visit [facility] Convenient Care at [address] [address] Camille Lua NP Pain, dental (Primary Dx); Swelling associated with dental structure; Dental caries; Broken teeth 01/14/2025 Orders Only [facility] Hematology [facility] Floor [address] [place] [address] Nick Zayda Suáreza History of DVT (deep vein thrombosis) (Primary Dx) 01/10/2025 7:53 AM CDT - 01/10/2025 11:59 PM CDT Hospital Encounter [facility] Radiology [facility] [address] [place] [address] Infection of venous access port, sequela Discharge Disposition: Discharge to home or self care 01/08/2025 Telephone [facility] [address] [place] [address] Gina Marsh RN 01/07/2025 Orders Only [facility] Radiology [address] [place] [address] Gina Kramer RN 01/06/2025 Telephone [facility] Hematology [facility] [address] [place] [address] Monica Sotomayor 01/05/2025 1:25 PM CDT - 01/05/2025 11:59 PM CDT Hospital Encounter [facility] Emergency, Room R Discharge Disposition: Discharge to home or self care 01/05/2025 1:40 PM CDT - 01/05/2025 6:17 PM CDT Emergency [facility] Emergency Department [address] [place] [id number] Vaughn Dee MD Seizure (HCC) (Primary Dx) Discharge Disposition: Discharge to home or self care 01/02/2025 Results Follow-Up [facility] Primary Care at [address] [address] Destiny Alfaro NP CBC with auto differential, Comprehensive metabolic panel, TSH, Additional followed-up results: 6 01/02/2025 Orders Only [facility] Radiology [address] [place] [address] Gina Siddiqui RN 01/01/2025 7:06 PM CDT - 01/01/2025 11:59 PM CDT Hospital Encounter [facility] Radiology [facility] Critical access hospital[address] [place] [address] Discharge Disposition: Discharge to home or self care 12/28/2024 6:19 AM CDT - 12/30/2024 12:30 PM CDT Hospital Encounter [address] [address] Marshall Crane MD PhD Brijesh, MD Wero Hensley Salim, MD Seizure disorder (HCC) (Primary Dx); Spell of altered cognition; Anxiety; Personality disorder (HCC); Severe episode of recurrent major depressive disorder, without psychotic features (HCC) Discharge Disposition: Discharge to home or self care 12/28/2024 5:37 AM CDT - 12/28/2024 11:59 PM CDT Hospital Encounter [facility] Emergency, Room R Discharge Disposition: Discharge to home or self care 12/27/2024 8:08 PM CDT - 12/28/2024 5:34 AM CDT Emergency [facility] Emergency Department [address] [place] [address] Vaughn Dee MD Wala, Georges Frankel MD Status epilepticus (HCC) (Primary Dx) Discharge Disposition: Discharge to a short term hospital for IP 12/26/2024 3:51 PM CDT - 12/26/2024 11:59 PM CDT Hospital Encounter [facility] [address] [place] [address] Anemia, unspecified type; Essential hypertension; Acquired hypothyroidism; Seizures (HCC); Elevated blood sugar Discharge Disposition: Discharge to home or self care 12/26/2024 4:00 PM CDT Lab [facility] Outpatient Lab at [address] [address] 12/26/2024 3:00 PM CDT Office Visit [facility] Primary Care at [address] [address] Destiny Alfaro NP Port-A-Cath in place (Primary Dx); Acquired hypothyroidism; Essential hypertension; Anemia, unspecified type; Seizures (HCC) 12/25/2024 Telephone [facility] Primary Care at [address] [address] Destiny Alfaro NP Appointment Request 12/13/2024 Results Follow-Up [facility] Primary Care at [address] [address] Destiny Alfaro NP CBC with auto differential, Comprehensive metabolic panel, Differential, auto, eGFR 12/12/2024 2:50 PM CDT Lab [address] [address] Fever, unspecified fever cause; Infection of venous access port, sequela; Anemia, unspecified type 12/10/2024 4:30 PM CDT Telemedicine [facility] Primary Care at [address] [address] Destiny Alfaro NP Fever, unspecified fever cause (Primary Dx); Infection of venous access port, sequela; Anemia, unspecified type; Alcohol dependence with alcohol-induced mood disorder (HCC); Nonintractable epilepsy without status epilepticus, unspecified epilepsy type (HCC) 12/08/2024 6:10 PM CDT - 12/08/2024 9:39 PM CDT Emergency [facility] Emergency Department [address] [place] [address] Viral syndrome (Primary Dx); Hypokalemia Discharge Disposition: Discharge to home or self care 12/08/2024 Nurse Triage [facility] Primary Care at [address] [address] Destiny Alfaro NP 12/07/2024 8:32 AM CDT - 12/07/2024 2:41 PM CDT Emergency [facility] Emergency Department [address] [place] [address] Sujit Back MD Iron deficiency anemia secondary to inadequate dietary iron intake (Primary Dx) Discharge Disposition: Discharge to home or self care 12/07/2024 Nurse Triage [facility] Primary Care at [address] [address] Destiny Alfaro NP 11/28/2024 Telephone [facility] Hematology [facility] Floor [address] [place] [address] Emi Smith from Last 3 Months Allergies Active Allergy Reactions Criticality Noted Date Comments Adhesive Tape-Silicones Unknown 09/24/2019 Azithromycin Hives Medium 09/07/2017 Bupropion Other (See comments) Low 06/03/2019 made me sicker. Clindamycin Unknown 05/17/2019 Codeine Anaphylaxis,Hives, Itching,Swelling High 08/06/2018 Has tolerated hydromorphone, tramadol and oxycodone in past visits Erythromycin Hives,Swelling High 08/06/2018 Fexofenadine Hives,Rash Medium 12/22/2016 Lacosamide Nausea & Vomiting,Other (See comments) Low 01/24/2021 bradycardia Greer Anaphylaxis,Rash High 02/26/2019 Nsaids (Non-Steroidal Anti-Inflammatory Drug) [...] 1 tablet (50 mcg total) by mouth microgrinder operator before breakfast 90 tablet 1 08/19/19 25 [...] 07/30/2024 Assessment & Plan (09/10/2024 1:49 PM MD SENIOR RESEARCH SCIENTIST): Last DVT was in February. Assessment & Plan (08/29/2024 4:16 PM MD SENIOR RESEARCH SCIENTIST): Continue Eliquis 5 mg b.i.d. Chronic migraine without aur a without status migrainosus, not intractable 05/07/2024 Assessment & Plan (08/29/2024 4:15 PM MD SENIOR RESEARCH SCIENTIST): Continue nurtec PRN and Qulipta 60mg daily. [...] has been placed to General surgery in [place] for assessment for Port-A-Cath removal. Orders: Ambulatory referral to General Surgery; Future Assessment & Plan (08/29/2024 4:19 PM MD SENIOR RESEARCH SCIENTIST): Port-A-Cath was placed previously by old provider who thought she may need TPN. Port-A-Cath was clotted immediately. Port-A-Cath needs to be removed. Multiple referrals have been placed to have this removed. Patient needs to have this removed as soon as possible. [facility] have denied patient's referral. We will place referral back to [facility] to see if they can take it out as this is where she had it placed. She has appt scheduled with [facility]. I discussed importance of keeping appt and having this removed. She has been advised multiple times to schedule with [facility] to have Port-A-Cath removed. Assessment & Plan (05/07/2024 6:01 PM CDT): Port-A-Cath was placed previously by old provider who thought she may need TPN. Port-A-Cath was clotted immediately. Port-A-Cath needs to be removed. Multiple referrals have been placed to have this removed. Patient needs to have this removed as soon as possible. [facility] have denied patient's referral. We will place referral back to [facility] to see if they can take it out as this is where she had it placed. She has appt scheduled with [facility]. I discussed importance of keeping appt and having this removed. Assessment & Plan (04/05/2024 3:41 PM CDT): Port-A-Cath was placed previously by old provider who thought she may need TPN. Port-A-Cath was clotted immediately. Port-A-Cath needs to be removed. Multiple referrals have been placed to have this removed. Patient needs to have this removed as soon as possible. [facility] have denied patient's referral. We will place referral back to [facility] to see if they can take it out as this is where she had it placed. Abnormal CT scan, lung 03/26/2024 Recurrent duodenal ulcer 03/05/2024 Assessment & Plan (08/29/2024 4:19 PM MD SENIOR RESEARCH SCIENTIST): Recurrent duodenal ulcer with bleeding. Referral to GI in [place] as she has trouble getting to appts in [place]. Assessment & Plan (05/07/2024 6:01 PM CDT): Recurrent duodenal ulcer with bleeding. Referral to GI in [place] as she has trouble getting to appts in [place]. Assessment & Plan (03/20/2024 6:00 PM CDT): Recurrent duodenal ulcer with bleeding. Patient is followed by GI. Continue Prilosec. Follow up for any recurrent bleeding Morbid obesity with BMI of 45.0-49.9, adult 09/08 Assessment & Plan (08/29/2024 4:18 PM MD SENIOR RESEARCH SCIENTIST): Discussed the patient's BMI. The BMI is [...] 12/11/2022 Assessment & Plan (08/29/2024 4:13 PM MD SENIOR RESEARCH SCIENTIST): Continue eliquis 5mg BID. Keep appt with [...] auto differential; Future Consult to Interventional Radiology (Community); Future Asthma 09/04/2020 Assessment & Plan (09/10/2024 1:51 PM MD SENIOR RESEARCH SCIENTIST): Continue breztri as previously ordered by previous pulmonology. Continue prn albuterol. She has been referred to pulmonology here. I have advised her to schedule an appt here. Assessment & Plan (08/29/2024 4:15 PM MD SENIOR RESEARCH SCIENTIST): Continue breztri as previously ordered by previous [...] albuterol. Assessment & Plan (09/06/2020 12:08 PM MD SENIOR RESEARCH SCIENTIST): Rarely uses albuterol at home, has been using twice a day for 2-3 days -Schedule albuterol QID for now Assessment & Plan (09/05/2020 6:15 PM MD SENIOR RESEARCH SCIENTIST): Rarely uses albuterol at home, has been using twice a day for 2-3 days -Schedule albuterol QID for now Assessment & Plan (09/04/2020 6:49 PM MD SENIOR RESEARCH SCIENTIST): Rarely uses albuterol at home, has been using twice a day for 2-3 days --Schedule albuterol QID & prn --Peak flows --Currently vapes, recommended cessation Acute pancreatitis 09/04/2020 Assessment & Plan (08/29/2024 4:21 PM MD SENIOR RESEARCH SCIENTIST): No issue since 2020. Follows with Dr. Mary Assessment & Plan (04/05/2024 3:26 PM CDT): No issue since 2020. Follows with Dr. Mary Assessment & Plan (02/23/2024 4:44 PM CDT): No issue since 2020. Follows with Dr. Mary Assessment & Plan (09/07/2020 3:02 PM MD SENIOR RESEARCH SCIENTIST): Abdominal pain associated with eating, nausea, vomiting and diarrhea. Lipase 1094, CT with acute pancreatitis. TG wnl, only endorses intermittent ETOH use, h/o jose. Possibly 2/2 idopathic -stable lipase 26 -advanced to low fat diet today -d/c IVF -pain control with home tramadol PRN Assessment & Plan (09/05/2020 6:24 PM MD SENIOR RESEARCH SCIENTIST): Abdominal pain associated with eating, nausea, vomiting and diarrhea. Lipase 1094, CT with acute pancreatitis. TG wnl, only endorses intermittent ETOH use, h/o jose. Possibly 2/2 idopathic -NPO -c/w IVF with LR -trend lipase -pain control with tramadol PRN, dilaudid PRN while NPO Assessment & Plan (09/04/2020 7:21 PM MD SENIOR RESEARCH SCIENTIST): Acute pancreatitis, unclear trigger. Possible ETOH or COVID. She reports prior similar pain after drinking alcohol --Check ETOH level, discussed cessation of ETOH --Check triglycerides --Clear liquids for now pending CT read & repeat exam --IV fluids Essential hypertension 08/31/2020 Assessment & Plan (12/27/2024 1:25 PM CDT): Orders: Hemoglobin A1c; Future Comprehensive metabolic panel; Future Assessment & Plan (08/29/2024 4:16 PM MD SENIOR RESEARCH SCIENTIST): Advised to check blood pressure and report [...] 08/31/2020 Assessment & Plan (08/29/2024 4:16 PM MD SENIOR RESEARCH SCIENTIST): Continue ppi Assessment & Plan (05/07/2024 6:02 [...] CDT): Assessment & Plan (08/29/2024 4:13 PM MD SENIOR RESEARCH SCIENTIST): Advised to follow up with [facility] for management. Encouraged continue sobriety. Assessment & Plan (05/07/2024 11:37 AM CDT): Patient is back in rehab for alcohol abuse. She has been sober for 18 days. She is in rehab at [facility]. biostatistics director is managing medications. She would like to get back on Vivitrol. Will look into possibility of doing here. Otherwise she should be able to get it at [facility]. Call [facility] and see about getting scheduled with Jenny [...] 08/07/2018 Assessment & Plan (08/29/2024 4:18 PM MD SENIOR RESEARCH SCIENTIST): Follows with psychiatry Assessment & Plan (02/23/2024 4:47 PM CDT): Follows with psychiatry Assessment & Plan (08/10/2018 3:47 PM MD SENIOR RESEARCH SCIENTIST): The patient has a behavioral pattern that [...] - pending final date and time with [facility]. -Family meeting Thursday 08/10 at 4PM. Major depressive disorder 08/04/2018 Assessment & Plan (08/29/2024 4:18 PM MD SENIOR RESEARCH SCIENTIST): Patient follows with psychiatry. She has a [...] recommendations. Assessment & Plan (08/10/2018 3:47 PM MD SENIOR RESEARCH SCIENTIST): Preethi Napier is a 22 year old, single, domiciled, unemployed female with history of epilepsy, MDD, HTN, and gastric bypass with admission to [facility] in the setting of suicidal attempt [...] 4PM. Assessment & Plan (08/06/2018 12:28 PM MD SENIOR RESEARCH SCIENTIST): The patient's diagnosis was changed from unspecified [...] TSH. Assessment & Plan (08/04/2018 1:21 PM MD SENIOR RESEARCH SCIENTIST): Patient has history of depressive symptoms beginning [...] CDT): Assessment & Plan (08/29/2024 4:21 PM MD SENIOR RESEARCH SCIENTIST): Continue Keppra 1500mg BID. Depakote 500mg every [...] Topamax Assessment & Plan (09/07/2020 3:00 PM MD SENIOR RESEARCH SCIENTIST): Neurologist is Dr. Molina. Unclear if seizures or spells per prior neurology notes. No seizure in 8 months per patient. -f/u keppra/topamax level, carb level < 3.0 -c/w Keppra 1500mg IV BID, Oxcarbazepine 300BID -not needing topamax, no fills per recent med rec -encouraged to follow up with [facility] neuro in past, will encourage on discharge as well, will provide 30 day refill of AED only Assessment & Plan (09/05/2020 6:27 PM MD SENIOR RESEARCH SCIENTIST): Neurologist is Dr. Molina. Unclear if seizures or spells per prior neurology notes. No seizure in 8 months per patient. -draw AED levels -c/w Keppra 1500mg IV BID, Oxcarbazepine 300BID -not needing topamax, no fills per recent med rec -encouraged to follow up with [facility] neuro in past, will encourage on discharge as well, will provide 30 day refill of AED only Assessment & Plan (09/04/2020 6:46 PM MD SENIOR RESEARCH SCIENTIST): Neurologist is Dr. Molina. Unclear if seizures or spells per prior neurology notes. No seizure in 8 months per patient. --Needs AED's refilled --Continuing Keppra 1500mg IV BID --Continue Oxcarbazepine 300BID, Topamax 50 BID --Holding Tramadol, recently prescribed per patient --Needs follow up with neurology, she reports her neurologist no longer takes her insurance Assessment & Plan (08/10/2018 3:48 PM MD SENIOR RESEARCH SCIENTIST): Ms. Geigers events started at ~14 years old. She has 2 seizure types: (1)staring and unresponsiveness lasting for 30 seconds to a few minutes and (2)generalized shaking (may be preceded by headache or dizzy sensation) lasting 1 to 15 minutes. She was recently admitted to the [facility] for spell characterization (07/25-07/29). Her typical [...] and follow-up with her outpatient neurologist at [facility]. -Keppra 1000 mg BID and Trileptal 300 [...] Future Assessment & Plan (06/21/2018 12:12 AM MD SENIOR RESEARCH SCIENTIST): Patient was on topamax in the past but per neurology note has not filled Rx since Mar 2017. Patient is currently somnolent, likely from ativan and not providing any history. She is in the ICU under the care of the grinder needle tip. She has been loaded with Keppra. EEG is pending. Continue to monitor. Seizure precautions. History of Sandi-en-Y gastric bypass 05/25/2018 Assessment & Plan (08/29/2024 4:17 PM MD SENIOR RESEARCH SCIENTIST): Previous surgeon is Dr. Giron. She has not upcoming consult with Dr. Mary. She has chronic abdominal pain. Assessment & Plan (05/07/2024 6:03 PM CDT): Surgeon is Dr. Burgos. Assessment & Plan (06/21/2018 12:14 AM MD SENIOR RESEARCH SCIENTIST): Patients surgeon is Dr. Burgos. Assessment & Plan (05/25/2018 5:10 AM CDT): Patient has a follow-up appoint with her surgeon next week. Continue vitamins. PUD (peptic ulcer disease) 05/25/2018 Assessment & Plan (08/29/2024 4:19 PM MD SENIOR RESEARCH SCIENTIST): Hx of duodenal ulcer. Continue Prilosec, sucralfate, [...] Mary Assessment & Plan (06/21/2018 12:30 AM MD SENIOR RESEARCH SCIENTIST): Continue PPI Assessment & Plan (05/25/2018 5:12 AM CDT): Patient states she had an EGD in April and is currently on Carafate twice a day which has been resumed. She states she developed ulcers after having a gastric sleeve placed. Anxiety 09/07/2015 Overview (02/23/2024): Depression with anxiety Assessment & Plan (08/29/2024 4:14 PM MD SENIOR RESEARCH SCIENTIST): Significant depression with anxiety. She follows with psychiatry.I have advised her to follow all recommendations from Psychiatry. She is following with [facility]. Assessment & Plan (05/07/2024 11:14 AM CDT): [...] psychotherapy Assessment & Plan (09/06/2020 12:07 PM MD SENIOR RESEARCH SCIENTIST): No SI/HI currently. Mood stable. Recent admission to psychiatry in May after an overdose of trazodone and tylenol through her G-tube. Hx nonepileptic spells, has been an unreliable historian at times. Also hx pathological lying (as a child said she had cancer and let the community throw a engine emission technician for her) -Continue fluoxetine 40 qd, abilify 10 qhs, doxepin 10 qhs Assessment & Plan (09/05/2020 6:27 PM MD SENIOR RESEARCH SCIENTIST): No SI/HI currently. Mood stable. Recent admission to psychiatry in May after an overdose of trazodone and tylenol through her G-tube. Hx nonepileptic spells, has been an unreliable historian at times. Also hx pathological lying (as a child said she had cancer and let the community throw a engine emission technician for her) -Continue fluoxetine 40 qd, abilify 10 qhs, doxepin 10 qhs Assessment & Plan (09/04/2020 7:27 PM MD SENIOR RESEARCH SCIENTIST): No SI/HI currently. Mood stable. Recent admission to psychiatry in May after an overdose of trazodone and tylenol through her G-tube. Hx nonepileptic spells, has been an unreliable historian at times. --Continue fluoxepine, abilify, doxepin, AED's as noted --No longer taking seroquel --Outpatient follow up with psychiatry Assessment & Plan (06/21/2018 12:30 AM MD SENIOR RESEARCH SCIENTIST): Will continue home medications. Assessment & Plan (05/25/2018 5:08 AM CDT): Home medications have been resumed. Patient had a recent suicide attempt 2 weeks ago when she overdosed on NSAIDs. She states she was admitted to [facility] at the time. Denies any suicidal or homicidal ideation at this time. Hypothyroidism 09/07/2015 Overview (11/11/2016): Hypothyroid Assessment & Plan (12/27/2024 1:25 PM CDT): Repeat thyroid levels pending. Given patient's fatigue and increase in bowel movements we will screen Orders: T4, free; Future TSH; Future Assessment & Plan (08/29/2024 4:17 PM MD SENIOR RESEARCH SCIENTIST): levels are within normal limits. We will continue to monitor. Assessment & Plan (05/07/2024 5:59 PM CDT): TSH TSH levels are within normal limits. We will continue to monitor. Assessment & Plan (04/05/2024 3:31 PM CDT): Continue synthroid 50mcg. TSH WDL. Will continue to monitor. Assessment & Plan (07/19/2023 12:09 PM MD SENIOR RESEARCH SCIENTIST): TSH adequate. Please continue home synthroid at current dosing. Assessment & Plan (06/03/2023 10:10 AM CDT): -continue levothyroxine Assessment & Plan (06/02/2023 4:24 AM CDT): -continue levothyroxine Assessment & Plan (09/06/2020 12:07 PM MD SENIOR RESEARCH SCIENTIST): Previously taken off synthroid per PCP. TSH 5.35 on admission but T4 normal. -CTM as outpatient, subclinical hypothyroid Assessment & Plan (09/05/2020 6:26 PM MD SENIOR RESEARCH SCIENTIST): Previously taken off synthroid per PCP. TSH 5.35 on admission but T4 normal. -CTM as outpatient, subclinical hypothyroid Assessment & Plan (09/04/2020 7:22 PM MD SENIOR RESEARCH SCIENTIST): Currently off synthroid --check TSH Assessment & Plan (06/21/2018 12:13 AM MD SENIOR RESEARCH SCIENTIST): Patient takes levothyroxine Anemia Assessment & Plan [...] Future Assessment & Plan (08/29/2024 4:14 PM MD SENIOR RESEARCH SCIENTIST): Keep appt with hematology. Continue oral iron [...] time Assessment & Plan (09/06/2020 12:08 PM MD SENIOR RESEARCH SCIENTIST): Microcytic anemia, possible iron deficiency downtrending 9.3 > 7.5 from 1 month ago -LDH, Hapto negative for hemolysis, reticulocyte index with hypoproliferation/production disorder -TERENCE with iron 19, ferritin 8 and Tsat 6, B12 mildly low to 350, folate pending -c/w iron 325 every day Assessment & Plan (09/05/2020 6:17 PM MD SENIOR RESEARCH SCIENTIST): Microcytic anemia, possible iron deficiency downtrending 9.3 [...] 02/23/2024 Assessment & Plan (07/19/2023 12:04 PM MD SENIOR RESEARCH SCIENTIST): Patient with chronic joint pain and swelling [...] sided sensory change Infection of tooth 04/11/2023 Dental abscess 03/22/2023 02/23/2024 Arthralgia of right [...] 12/11/2022 02/23/20 24 Malaise and fatigue 10/20/2022 02/23/20 24 MSSA (methicillin susceptibl e Staphylococcus aureus) [...] 02/23/2024 Assessment & Plan (09/06/2020 12:08 PM MD SENIOR RESEARCH SCIENTIST): Patient presented with cough, SOB, poor PO, fatigue and diarrhea. COVID-19 RNA PCR was sent on 09/04 and positive. 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 - Prior and active treatments: remdesivir 09/04-2/2, hold CV plasma and dex due to no O2 - Continue supportive care with antitussives and antipyretics as needed. COVID- 19 droplet and contact precautions per hospital protocol. Assessment & Plan (09/05/2020 6:22 PM MD SENIOR RESEARCH SCIENTIST): Patient presented with cough, SOB, poor PO, fatigue and diarrhea. COVID-19 RNA PCR was sent on 09/04 and positive. Works in half-way and with several ED visits possible source [...] protocol. Assessment & Plan (09/04/2020 6:48 PM MD SENIOR RESEARCH SCIENTIST): No fevers. Has been using inhaler more frequently for a few days, mild cough. No changes to taste or smell. COVID may be trigger for acute pancreatitis, ileus --CRP, D-dimer, ferritin --Lovenox for DVT prophylaxis --Monitor on tele --Albuterol QID & PRN --Not currently requiring oxygen, will defer dexamethasone & remdesivir for now Cellulitis 09/04/2020 02/23/2024 Assessment & Plan (09/07/2020 3:01 PM MD SENIOR RESEARCH SCIENTIST): Gtube placed after difficulty tolerating PO after SANTO, but has not used in months, removed in ER after discussion with patient. Noted cellulitis s/p augmentin from PCP -worsening purulence despite bactrim -will obtain culture of purulence -CT A/P on admission w/o fluid collection -c/w bactrim (09/05-09/07) > vancomycin started on 09/07 -CTM for response Assessment & Plan (09/05/2020 6:18 PM MD SENIOR RESEARCH SCIENTIST): Gtube placed after difficulty tolerating PO after SANTO, but has not used in months, removed in ER after discussion with patient. Noted cellulitis s/p augmentin from PCP -start bactrim, treat for 5 days (09/05-09/09) Assessment & Plan (09/04/2020 6:37 PM MD SENIOR RESEARCH SCIENTIST): G-tube leaking. Multiple issues with a leaking G-tube in the last 2 months --T-tube removed in ER --Follow up with GI outpatient Diarrhea 09/04/2020 02/23/2024 Assessment & Plan (09/06/2020 12:07 PM MD SENIOR RESEARCH SCIENTIST): Ongoing diarrhea, Likely 2/2 COVID -f/u Cdiff, stool culture not collected yet Assessment & Plan (09/05/2020 6:22 PM MD SENIOR RESEARCH SCIENTIST): Ongoing diarrhea, Likely 2/2 COVID -f/u Cdiff, stool culture Assessment & Plan (09/04/2020 7:28 PM MD SENIOR RESEARCH SCIENTIST): Likely 2/2 covid --Check stool for c-diff, [...] 09/15/2019 Assessment & Plan (08/10/2018 3:52 PM MD SENIOR RESEARCH SCIENTIST): TSH 5.07, Free T4 0.96. -Continue synthroid 75mcg. Macrocytic anemia 08/06/2018 09/15/2019 Assessment & Plan (08/10/2018 3:49 PM MD SENIOR RESEARCH SCIENTIST): Ms. Napier has history of gastric bypass, B12 was low at 256. She prefers injection while in hospital. -B12 1000mcg IM qd -Can continue PO B12 after discharge. -F/u with PCP after discharge for long-term management. Post-ictal state 08/01/2018 09/15/2019 Functional diarrhea 07/06/2018 09/15/19 20 Right upper quadrant pain 07/05/2018 Transaminitis 06/21/2018 09/15/2019 Assessment & Plan (06/21/2018 12:23 AM MD SENIOR RESEARCH SCIENTIST): Mild. Etiology unclear. Was not present at [...] presentation. Will continue with supportive care. P.r.n. Katiaan. Continue to monitor. Patient also notes abdominal cramping with eating will order p.r.n. Bentyl. Acute cystitis with hematuria 05/25/2018 08/19/2024 Hypomagnesemia [...] 07/25/2018 Seizure-like activity 2024 Suicidal ideation 09/15/2019 Immunizations Immunization Administration Dates Next Due Influenza, Quadrivalent, Spl it, Intramuscular 07/13/2020,07/20/2016,05/06/2015 Influenza, Quadrivalent, Spl it, Preservative Free, Intramuscular 10/05/2023,05/13/2021,07/13/2020,05/26,06/04/2019,04/19/2017 Influenza, Trivalent, Preser vative Free, Intramuscular 09/04/2024 Clarissa ([facility]) SARS-CoV-2 Vaccination 10/15/2020 MMR 10/11/2023 PPD TEST 07/13/2020 Sars-CoV-2, Unspecified 09/23/2021 Tdap 11/10/2021,08/07/2015 Social History Tobacco Use Types Packs/Day Years [...] 1 a month, intake depends on mood [facility] Utilities Answer Date Recorded In the past 12 months has th Sh[place], gas, oil, or water [employer] threatened to shut off services in your [...] How often do you attend chur or druze services? Patient unable to answer 02/19/2025 Do you belong to any clubs o r organizations such as voodoo groups, unions, fraternal or athletic groups, or [...] Date Recorded PHQ-2 Total Score 2 11/14/2024 [facility] - Occupational [...] place to sleep or slept in a group home (including now)? No 10/02/2023 Housing Stability [...] any time in the past [address] [facility], were you homeless or living in a group home (including now)? Patient unable to answer [...] on file Legal Sex Female 7:38 PM MD SENIOR RESEARCH SCIENTIST Gender Identity Female 09/05/2024 6:58 PM MD SENIOR RESEARCH SCIENTIST Sexual Orientation Straight 09/05/2024 6: 58 PM MD SENIOR RESEARCH SCIENTIST Last Filed Vital Signs Vital Sign Reading [...] 02/15/2025 1:43 PM CDT Plan of Treatment Not on file Interventions Community Resource Recommendations Community Resource Services Recommended Domains Addressed Status Status Reason/Outcome Date/Time [facility] Utility Assistance Financial Assistance Financial Resource Strain, Utilities 06/08/2023 4:49 PM CDT Procedures Procedure Name Priority Date/Time Associated Diagnosis [...] AM CDT POCT GLUCOSE DEVICE Routine 12/28/2024 6:31 AM CDT EGFR STAT 12/28/2024 6:29 AM [...] ORDERABLES - DEVICE Final Result [facility] ([place]OBEY) [address] [facility] [place] [address] * POCT glucose (02/21/2025 2:35 AM CDT) Glucose, POC 93 70 - 199 mg/dL Blood 02/21/2025 2:35 AM CDT 02/21/2025 2:35 AM CDT Yenifer Reagan MD LAB POCT ORDERABLES - DEVICE Final Result Performing Organization Address City/[facility]/ZIP Co de Phone Number [facility] ([place]) [address] [facility] [place] [address] * POCT glucose (02/20/2025 9:32 PM CDT) Glucose, POC 96 70 - 199 mg/dL Blood 02/20/2025 9:32 PM CDT 02/20/2025 9:32 PM CDT Yenifer Reagan MD LAB POCT ORDERABLES - DEVICE Final Result [facility] ([place]) [address] [facility] [place] [address] * POCT glucose (02/20/2025 5:11 PM CDT) Glucose, POC 100 70 - 199 mg/dL Blood 02/20/2025 5:11 PM CDT 02/20/2025 5:11 PM CDT Yenifer Reagan MD LAB POCT ORDERABLES - DEVICE Final Result [facility] ([place]) [address] [facility] [place] [address] * POCT glucose (02/20/2025 11:29 AM CDT) Glucose, POC 90 70 - 199 mg/dL Blood 02/20/2025 11:2 9 AM CDT 02/20/2025 11:29 AM CDT Yenifer Reagan MD LAB POCT ORDERABLES - DEVICE Final Result Performing Organization Address City/[facility]/ZIP Co de Phone Number [facility] ([place]) [address] [facility] [place] [address] * POCT glucose (02/20/2025 8:12 AM CDT) Glucose, POC 91 70 - 199 mg/dL Blood 02/20/2025 8:12 AM CDT 02/20/2025 8:12 AM CDT Yenifer Reagan MD LAB POCT ORDERABLES - DEVICE Final Result [facility] ([place]) [address] [facility] [place] [address] * POCT glucose (02/20/2025 2:17 AM CDT) Glucose, POC 95 70 - 199 mg/dL Blood 02/20/2025 2:17 AM CDT 02/20/2025 2:17 AM CDT us Yenifer Reagan MD LAB POCT ORDERABLES - DEVICE Final Result [facility] ([place]) [address] [facility] [place] [address] * POCT glucose (02/19/2025 9:58 PM CDT) Glucose, POC 98 70 - 199 mg/dL Blood 02/19/2025 9:58 PM CDT 02/19/2025 9:58 PM CDT us Yenifer Reagan MD LAB POCT ORDERABLES - DEVICE Final Result Performing Organization Address City/[facility]/ZIP Co de Phone Number [facility] ([place]OBEY) [address] [facility] [place] [address] * POCT glucose (02/19/2025 4:37 PM CDT) Glucose, POC 109 70 - 199 mg/dL Blood 02/19/2025 4:37 PM CDT 02/19/2025 4:37 PM CDT us Yenifer Reagan MD LAB POCT ORDERABLES - DEVICE Final Result Performing Organization Address City/[facility]/ZIP Co de Phone Number [facility] ([place]OBEY) [address] [facility] [place] [address] * POCT glucose (02/19/2025 12:00 PM CDT) Glucose, POC 91 70 - 199 mg/dL Blood 02/19/2025 12:0 0 PM CDT 02/19/2025 12:00 PM CDT us Yenifer Reagan MD LAB POCT ORDERABLES - DEVICE Final Result [facility] ([place]Y) [address] [facility] [place] [address] * Lactate (02/19/2025 11:39 AM CDT) Lactate 0.8 0.7 - 2.0 mmol/L Blood 02/19/2025 11:3 9 AM CDT 02/19/2025 12:16 PM CDT Anamika Olguin MD LAB BLOOD ORDERABLES Fi nal Result [facility] ([place]) [address] [facility] [place] [address] * eGFR (02/19/2025 11:39 AM CDT) eGFR [...] 9 AM CDT 02/19/2025 12:14 PM CDT Anamika Olguin MD LAB BLOOD ORDERABLES Fi nal Result [facility] ([place]) [address] [facility] [place] [address] * Differential, auto (02/19/2025 11:39 AM CDT) Neutrophil abs 3.37 1.50 - 6.50 K/cumm Imm gran abs 0.01 0.00 - 0.10 K/cumm [facility] ([place]) Lymphocyte abs 0.84 0.80 - 3.30 K/cumm [facility] ([place]) Monocyte abs 0.34 0.20 - 0.80 K/cumm [facility] ([place]) Eosinophil abs 0.08 0.00 - 0.50 K/cumm [facility] ([place]) Basophil abs 0.01 0.00 - 0.10 K/cumm [facility] ([place]) Neutrophil pct 72.5 % [facility] ([place]) Comment: Interpretive [...] 2017. Monocyte pct 7.3 % [facility] ([place]) Comment: Interpretive Data [...] 9 AM CDT 02/19/2025 12:14 PM CDT Anamika Olguin MD LAB BLOOD ORDERABLES Fi nal Result [facility] ([place]) 1 [facility] [place] [address] * (ABNORMAL) CBC with auto differential (02/19/2025 [...] Fi nal Result [facility] ([place]) 1 [facility] [place] [address] * Valproic acid level, total (02/19/2025 11:39 AM CDT) Valproic Acid 55.9 50.0 - 100.0 mcg/mL [facility] ([place]) Comment: Interpretive Data Therapeutic range: 50-100 mcg/mL Current interpretive data was last revised on 2014 Blood 02/19/2025 11:3 9 AM CDT 02/19/2025 12:14 PM CDT us Carmelo Huang MD LAB BLOOD ORDERABLES Fi nal Result [facility] ([place]) 1 [facility] [place] [address] * (ABNORMAL) Comprehensive metabolic panel (02/19/2025 11:39 AM CDT) Sodium 140 135 - 145 mmol/L [facility] ([place]) Potassium, pl 3.8 3.3 - 4.9 mmol/L [facility] ([place]) Chloride 103 97 - 110 mmol/L [facility] ([place]) CO2 27 22 - 32 mmol/L [facility] ([place]) Anion gap 10 2 - 15 mmol/L [facility] ([place]) BUN 4(L) 6 - 25 mg/dL [facility] ([place]) Creatinine 0.63 0.60 - 1.10 mg/dL [facility] ([place]) Glucose 80 70 - 199 mg/dL [facility] ([place]) Comment: Interpretive Data Fasting glucose >/= [...] ORDERABLES Fi nal Result Performing Organization Address City/[facility]/ZIP Co de Phone Number ISRAEL BETANCUR ([place]) 1 [facility] [place] [address] * POCT glucose (02/19/2025 8:03 AM CDT) Glucose, POC 95 70 - 199 mg/dL Blood 02/19/2025 8:03 AM CDT 02/19/2025 8:03 AM CDT us Yenifer Reagan MD LAB POCT ORDERABLES - DEVICE Final Result Performing Organization Address City/[facility]/ZIP Co de Phone Number [facility] ([place]) 1 [facility] [place] [address] * POCT glucose (02/19/2025 2:25 AM CDT) Glucose, POC 93 70 - 199 mg/dL Blood 02/19/2025 2:25 AM CDT 02/19/2025 2:25 AM CDT us Yenifer Reagan MD LAB POCT ORDERABLES - DEVICE Final Result Performing Organization Address City/[facility]/ZIP Co de Phone Number [facility] ([place]) 1 [facility] Department [place] [address] * CT Head WO Contrast (02/19/2025 2:09 [...] Wan Baker M.D. AR: KAMILA Report ID: [id number] Reading Location: [id number] Procedure Note Wan Baker MD - 02/19/2025 [...] Wan Baker M.D. AR: KAMILA Report ID: [id number] Reading Location: [place] [address] Anamika Olguin MD IMG CT PROCEDURES Final Result * (ABNORMAL) Blood gas, arterial (02/19/2025 1:44 AM CDT) pH, Art 7.38 7.35 - 7.45 PCO2, Arterial 48(H) 35 - 45 mmHg [facility] ([place]) PO2, Arterial 60(L) 83 - 108 mmHg [facility] ([place]) HCO3 Art (Calculated) 28 20 - 30 mmol/L [facility] ([place]) BE, art 3 mmol/L [facility] ([place]) Comment: Interpretive Data No Reference Range Established Current Interpretive Data was last revised on 2017 O2 Sat Art (Measured) 90 90 - 95 % [facility] ([place]) Blood 02/19/2025 1:44 AM CDT 02/19/2025 1:47 AM CDT Anamika Olguin MD LAB BLOOD ORDERABLES Fi nal Result [facility] ([place]) 1 [facility] Department [place] [address] * POCT glucose (02/18/2025 8:30 PM CDT) Glucose, POC 103 70 - 199 mg/dL Blood 02/18/2025 8:30 PM CDT 02/18/2025 8:30 PM CDT Yenifer Reagan MD LAB POCT ORDERABLES - DEVICE Final Result Performing Organization Address [facility]/ZIP Co de Phone Number [facility]EL BETANCUR ([place]) [address] [facility] [place] [address] * POCT glucose (02/18/2025 5:13 PM CDT) Glucose, POC 93 70 - 199 mg/dL Blood 02/18/2025 5:13 PM CDT 02/18/2025 5:13 PM CDT Yenifer Reagan MD LAB POCT ORDERABLES - DEVICE Final Result Performing Organization Address [facility] Co de Phone Number [facility]EL BETANCUR ([place]) [address] [facility] [place] [address] * POCT glucose (02/18/2025 11:55 AM CDT) Glucose, POC 92 70 - 199 mg/dL Blood 02/18/2025 11:5 5 AM CDT 02/18/2025 11:55 AM CDT Phani Hobbs MD LAB POCT ORDERABLES - KELSEA CE Final Result Performing Organization Address [facility] Co de Phone Number [facility] ([place]) [address] [facility] [place] [address] * POCT glucose (02/18/2025 7:52 AM CDT) Glucose, POC 94 70 - 199 mg/dL Blood 02/18/2025 7:52 AM CDT 02/18/2025 7:52 AM CDT us Phani Hobbs MD LAB POCT ORDERABLES - KELSEA CE Final Result Performing Organization Address [facility]/ZIP Co de Phone Number [facility] ([place]) 1 [facility] [place] [address] * Critical Care (02/18/2025 1:23 AM CDT) [...] plan with the ICU team and other medical/sql server consultant staff, making frequent assessments and decisions [...] 8:23 PM CDT 02/17/2025 8:23 PM CDT us Phani Hobbs MD LAB POCT ORDERABLES - KELSEA CE Final Result [facility] ([place]) [address] [facility] [place] [address] * EEG (02/17/2025 5:41 PM CDT) Anatomical [...] KELSEA CE Final Result Performing Organization Address City/[facility]/ZIP Co de Phone Number [facility] ([place]) [address] [facility] [place] [address] * POCT glucose (02/17/2025 12:05 PM CDT) Glucose, POC 106 70 - 199 mg/dL Blood 02/17/2025 12:0 5 PM CDT 02/17/2025 12:05 PM CDT Phani Hobbs MD LAB POCT ORDERABLES - KELSEA CE Final Result [facility] ([place]) [address] [facility] [place] [address] * POCT glucose (02/17/2025 9:28 AM CDT) Glucose, POC 96 70 - 199 mg/dL Blood 02/17/2025 9:28 AM CDT 02/17/2025 9:28 AM CDT Phani Hobbs MD LAB POCT ORDERABLES - KELSEA CE Final Result [facility] ([place]) 1 [facility] [place] [address] * eGFR (02/17/2025 3:32 AM CDT) eGFR [...] ORDERABLES Fi nal Result Performing Organization Address City/[facility]/ZIP Co de Phone Number [facility] ([place]) 1 [facility] [place] [address] * Differential, auto (02/17/2025 3:32 AM CDT) Neutrophil abs 3.25 1.50 - 6.50 K/cumm Imm gran abs 0.01 0.00 - 0.10 K/cumm [facility] ([place]) Lymphocyte abs 1.22 0.80 - 3.30 K/cumm [facility] ([place]) Monocyte abs 0.42 0.20 - 0.80 K/cumm [facility] ([place]) Eosinophil abs 0.09 0.00 - 0.50 K/cumm [facility] ([place]) Basophil abs 0.02 0.00 - 0.10 K/cumm [facility] ([place]) Neutrophil pct 64.8 % [facility] ([place]) Comment: Interpretive [...] Lymphocyte pct 24.4 % [facility] ([place]) Comment: Interpretive Data Percent cell count reference ranges are not reported, since discordance with absolute values may lead to misinterpretation of CBC data. Current Interpretive Data was last revised on 2017. Monocyte pct 8.4 % [facility] ([place]) Comment: Interpretive Data Percent cell count reference ranges are not reported, since discordance with absolute values may lead to misinterpretation of CBC data. Current Interpretive Data was last revised on 2017. Eosinophil pct 1.8 % [facility] ([place]) Comment: Interpretive [...] Fi nal Result [facility] BETANCUR ([place]) 1 [facility] [place] [address] * POCT glucose (02/17/2025 3:32 AM CDT) Pathologist [facility] Glucose, POC 95 70 - 199 mg/dL Blood 02/17/2025 3:32 AM CDT 02/17/2025 3:32 AM CDT Phani Hobbs MD LAB POCT ORDERABLES - KELSEA CE Final Result Performing Organization Address City/[facility]/ZIP Co de Phone Number [facility]EL BETANCUR ([place]) 1 [facility] [place] [address] * (ABNORMAL) CBC with auto differential (02/17/2025 3:32 AM CDT) [facility] WBC 5.01 3.80 - 9.90 K/cumm Hgb 9.0(L) 11.9 - 15.5 g/dL [facility] ([place]) Hct 30.0(L) 35.6 - 45.5 % [facility] ([place]) Plt 238 150 - 400 K/cumm [facility] ([place]) MPV 10.2 9.1 - 12.3 fL [facility] ([place]) RBC 3.60(L) 3.90 - 5.20 M/cumm [facility] ([place]) MCV 83.3 81.3 - 96.4 fL [facility] ([place]) MCH 25.0(L) 27.1 - 33.3 pg [facility] ([place]) MCHC 30.0(L) 32.3 - 35.7 g/dL [facility] ([place]) RDW CV 18.7(H) 11.1 - 14.9 % [facility] ([place]) RDW SD 57.4(H) 35.7 - 48.1 fL [facility] ([place]) NRBC abs 0.00 0.00 - 0.01 K/cumm [facility] ([place]) Blood 02/17/2025 3:32 AM CDT 02/17/2025 3:59 AM CDT us Anamika Olguin MD LAB BLOOD ORDERABLES Fi nal Result [facility] ([place]) 1 [facility] Department [place] [address] * (ABNORMAL) Comprehensive metabolic panel (02/17/2025 3:32 AM CDT) Sodium 140 135 - 145 mmol/L Potassium, pl 3.6 3.3 - 4.9 mmol/L [facility] ([place]) Chloride 103 97 - 110 mmol/L [facility] ([place]) CO2 23 22 - 32 mmol/L [facility] ([place]) Anion gap 14 2 - 15 mmol/L [facility] ([place]) BUN 5(L) 6 - 25 mg/dL [facility] ([place]) [...] Fi nal Result [facility] ([place]) 1 [facility] Department [place] [address] * Critical Care (02/17/2025 1:26 AM CDT) [...] plan with the ICU team and other medical/sql server consultant staff, making frequent assessments and decisions [...] KELSEA CE Final Result Performing Organization Address [facility]/ZIP Co de Phone Number [facility] ([place]) [address] [facility] [place] [address] * POCT glucose (02/16/2025 4:57 PM CDT) Glucose, POC 108 70 - 199 mg/dL Blood 02/16/2025 4:57 PM CDT 02/16/2025 4:57 PM CDT Phani Hobbs MD LAB POCT ORDERABLES - KELSEA CE Final Result Performing Organization Address [facility] Co de Phone Number [facility] ([place]) [address] [place] [address] [place] [address] * Prolactin (02/16/2025 2:03 PM CDT) Prolactin 20.5 4.8 - 23.3 ng/mL Comment:Testing performed by : [facility], [address] [place] [address], [place]., [address] Blood 02/16/2025 2:03 PM CDT 02/17/2025 11:22 AM CDT Narrative [facility] ([place]) - 02/17/2025 12:15 PM CDT To be drawn within 1/2 hour of a seizure Roby Rivero II, MD LAB BLOOD ORDERABLES Final R esult Performing Organization Address City/[facility]/ZIP Co de Phone Number [facility] ([place]) 1 [place] [address] * Levetiracetam level (02/16/2025 2:03 PM CDT) Levetiracetam (Keppra) 30.5 10.0 - 40.0 mcg/mL [facility] Comment: ADDITIONAL INFORMATION This test was developed and its performance characteristics determined by [facility] in a manner consistent with CLIA requirements. This test has not been cleared or approved by the U.S. Food and Drug Administration. Test Performed by: [facility] - [address] [address] [employer]: Sis Dominguez Ph.D.; CLIA# [id number] Blood 02/16/2025 2:03 PM CDT 02/16/2025 2:06 PM CDT Roby Rivero II, MD LAB BLOOD ORDERABLES Final R esult [facility] ([place]) [address] [place] [address] [place] ref [facility] * (ABNORMAL) Valproic acid level, total (02/16/2025 2:03 PM CDT) Valproic Acid 29.9(L) 50.0 - 100.0 mcg/mL Comment: Interpretive Data Therapeutic range: 50-100 mcg/mL Current interpretive data was last revised on 2014 Blood 02/16/2025 2:03 PM CDT 02/16/2025 2:06 PM CDT Roby Rivero II, MD LAB BLOOD ORDERABLES Final R esult [facility] ([place]) [address] [place] [address] * XR CHEST 1 VIEW PORTABLE (02/16/2025 [...] Carmelo Ulloa M.D. MF: RAHEEM Report ID: [id number] Reading Location: [id number] Procedure Note Carmelo Ulloa, DO - 02/16/2025 [...] Carmelo Ulloa M.D. MF: RAHEEM Report ID: [id number] Reading Location: [place] [address] us Phani Hobbs MD IMG XR PROCEDURES Final Re sult * POCT glucose (02/16/2025 11:49 AM CDT) Glucose, POC 103 70 - 199 mg/dL Blood 02/16/2025 11:4 9 AM CDT 02/16/2025 11:49 AM CDT Phani Hobbs MD LAB POCT ORDERABLES - KELSEA CE Final Result Performing Organization Address [facility]/ZIP Co de Phone Number [facility] ([place]) 1 [facility] [place] [address] * POCT glucose (02/16/2025 8:47 AM CDT) Glucose, POC 126 70 - 199 mg/dL Blood 02/16/2025 8:47 AM CDT 02/16/2025 8:47 AM CDT Phani Hobbs MD LAB POCT ORDERABLES - KELSEA CE Final Result Performing Organization Address [facility]/ZIP Co de Phone Number [facility] ([place]) [address] [place] [address] [place] [address] * (ABNORMAL) Urinalysis reflex to microscopic and culture Urine (02/16/2025 3:56 AM CDT) Color, ur Yellow Yellow Clarity, ur Turbid(A) Clear [facility] ([place]) Specific gravity, ur 1.028 1.003 - 1.030 [facility] ([place]) pH, urine 6.0 [facility] ([place]) Comment: Interpretive Data U rine pH is affected by diet, medications, systemic acid-base disturbances, and renal tubular function. pH may affect urinary stone formation. For example, urine pH below 6.0 may help reduce the tendency for calcium phosphate stones and pH greater than 6.0 may reduce the tendency for uric acid stone formation. Source: [facility] [place] Current Interpretive Data was last revised on [...] Reflex to microscopic UA will be performed. [facility] (BERTIN) Urine 02/16/2025 3:56 AM CDT 02/16/2025 4:23 AM CDT Anamika Olguin MD LAB MICROBIOLOGY - GENE RAL ORDERABLES Final Result [facility] (BERTIN) 1 [facility] Department [place] [address] * (ABNORMAL) Urinalysis, microscopic only (02/16/2025 3:56 AM CDT) WBC, ur 0-5 0 - 5 /HPF RBC, ur 0-2 0 - 2 /HPF [facility] (BERTIN) Epithelial cells, squamous, ur 1-5 0 - 5 /HPF [facility] (BERTIN) Bacteria, ur 4+(A) [facility] (BERTIN) Mucous, ur Present(A) [facility] (BERTIN) Culture Reflex Comment Reflex conditions for urine culture (WBC >10) not met. [facility] (BERTIN) Urine 02/16/2025 3:56 AM CDT 02/16/2025 4:23 AM CDT Anamika Olguin MD LAB URINE ORDERABLES Fi nal Result [facility] (SCOBEY) 1 [facility] [place] [address] * eGFR (02/16/2025 3:44 AM CDT) eGFR [...] ORDERABLES Fi nal Result Performing Organization Address City/[facility]/ZIP Co de Phone Number [facility] (SCOBEY) 1 [facility] [place] [address] * Differential, auto (02/16/2025 3:44 AM CDT) [...] revised on 2017. Monocyte pct 9.0 % [facility] (SC[place]BEY) Comment: Interpretive Data Percent cell count reference [...] 2017. Basophil pct 0.2 % [facility] (SCOBEY) Comment: Interpretive Data Percent cell count reference ranges are not reported, since discordance with absolute values may lead to misinterpretation of CBC data. Current Interpretive Data was last revised on 2017. Blood 02/16/2025 3:44 AM CDT 02/16/2025 4:03 AM CDT us Anamika Olguin MD LAB BLOOD ORDERABLES Fi nal Result [facility]EL GYPSY (SCOBEY) 1 [facility] [place] [address] * (ABNORMAL) CBC with auto differential (02/16/2025 [...] 3:44 AM CDT 02/16/2025 4:03 AM CDT Anamika Olguin MD LAB BLOOD ORDERABLES Fi nal Result [facility] (BERTIN) 1 [facility] [place] [address] * Magnesium (02/16/2025 3:44 AM CDT) Magnesium 2.1 1.4 - 2.5 mg/dL Blood 02/16/2025 3:44 AM CDT 02/16/2025 4:23 AM CDT Anamika Olguin MD LAB BLOOD ORDERABLES Fi nal Result [facility] (BERTIN) 1 [facility] [place] [address] * (ABNORMAL) Comprehensive metabolic panel (02/16/2025 3:44 [...] - 45 Units/L [facility] (BERTIN) Blood 02/16/2025 3:44 AM CDT 02/16/2025 4:23 AM CDT us Anamika Olguin MD LAB BLOOD ORDERABLES Fi nal Result [facility] SCOBEY 1 [facility] [place] [address] * Critical Care (02/16/2025 2:31 AM CDT) [...] plan with the ICU team and other medical/sql server consultant staff, making frequent assessments and decisions [...] aureus) PCR Nasal (02/15/2025 10:05 PM CDT) [facility] PCR Scrn, Methicillin resistant Staphylococcus aureus (MRSA) Not Detected Not Detected Comment: Interpretive Data Testing performed using Nucleic Acid Amplification with the [employer] Xpert MRSA NxG Assay. This assay detects target DNA from mecA, mecC and the SCCmec insertion site of Staphylococcus aureus using Real-Time PCR and has been cleared by the FDA. Performance characteristics have been verified by the [facility]. Current Interpretive Data was last revised on 2022 Nasal 02/15/2025 10:0 5 PM CDT 02/15/2025 10:12 PM CDT Phani Hobbs MD LAB MICROBIOLOGY - GENERAL ORDERABLES Final Result [facility] (SCOBEY) 1 [facility] [place] [address] * Ammonia (02/15/2025 10:05 PM CDT) Ammonia 19 <=50 mcmol/L Blood 02/15/2025 10:0 5 PM CDT 02/15/2025 10:12 PM CDT Marlon Capps MD LAB BLOOD ORDERABLES Final R esult Performing Organization Address [facility] Co de Phone Number [facility]RAEL [facility] (SCOBEY) 1 [facility] [place] [address] * ECG 12 lead (02/15/2025 9:59 PM CDT) 02/15/2025 9:59 PM CDT Narrative [facility] [employer] - 02/17/2025 6:45 AM CDT Vent Rate: 75 bpm RR Interval: 794 msec WY Interval: 164 msec QRS Duration: 99 msec QT Interval: 446 msec QTC Interval: 475 msec P-R-T [place]: 40 - -7 - 19 degrees IMPRESSION: SINUS RHYTHM PROLONGED QT INTERVAL ABNORMAL ECG Compared to prior EKG, QT interval has increased Electronically Signed By: Ariel Lanier MD Marlon Capps MD ECG ORDERABLES Final Result Performing Organization Address City/[facility] Co de Phone Number [facility] [employer] [facility] * Lactate (02/15/2025 9:40 PM CDT) Lactate 0.7 0.7 - 2.0 mmol/L Blood 02/15/2025 9:40 PM CDT 02/15/2025 9:50 PM CDT Marlon Capps MD LAB BLOOD ORDERABLES Final R esult Performing Organization Address City/[facility]/ZIP Co de Phone Number [facility]RAEL [facility] (SCOBEY) [address] [place] [address] [place] [address] * eGFR (02/15/2025 9:40 PM CDT) eGFR [...] BLOOD ORDERABLES Final R esult ISRAEL BETANCUR BERTIN) 1 [facility] [place] [address] * Differential, auto (02/15/2025 9:40 PM CDT) [...] Imm gran pct 0.2 % [facility] (BETRIN) Comment: Interpretive Data Percent cell count reference [...] LAB BLOOD ORDERABLES Final R esult ISRAEL PENAN) 1 [facility] [place] [address] * (ABNORMAL) Thyroid Function Jerauld (02/15/2025 9:40 PM CDT) Pathologist [facility] TSH 4.53(H) 0.30 - 4.20 mcIUnit/mL Blood 02/15/2025 9:40 PM CDT 02/15/2025 9:50 PM CDT Marlon Capps MD LAB BLOOD ORDERABLES Final R esult Performing Organization Address City/[facility] Co de Phone Number [facility]EL [facility] (SCOBEY) 1 [facility] [place] [address] * (ABNORMAL) CBC with auto differential (02/15/2025 9:40 PM CDT) [facility] WBC 6.19 3.80 - 9.90 K/cumm Hgb 9.5(L) 11.9 - 15.5 g/dL [facility] Hct 30.2(L) 35.6 - 45.5 % [facility] ([facility] Plt 231 150 - 400 K/cumm [facility] (BERTIN) MPV 9.0(L) 9.1 - 12.3 fL [facility] (BERTIN) RBC 3.72(L) 3.90 - 5.20 M/cumm [facility] (BERT[place]) MCV 81.2(L) 81.3 - 96.4 fL [facility] (BERTIN) MCH 25.5(L) 27.1 - 33.3 pg [facility] (BERTIN) MCHC 31.5(L) 32.3 - 35.7 g/dL [facility] (BERTIN) RDW CV 19.1(H) 11.1 - 14.9 % [facility] (BERTIN) RDW SD 56.5(H) 35.7 - 48.1 fL [facility] (SCOBEY) NRBC abs 0.00 0.00 - 0.01 K/cumm [facility] (SCO[place]Y) Blood 02/15/2025 9:40 PM CDT 02/15/2025 9:50 PM CDT Marlon Capps MD LAB BLOOD ORDERABLES Final R esult Performing Organization Address [facility] Co de Phone Number [facility]EL [facility] (SCOBEY) 1 [facility] [place] [address] * hCG, blood, quantitative (02/15/2025 9:40 PM CDT) hCG, quant <5.0 0.0 - [...] ORDERABLES Final R esult Performing Organization Address [facility] Co de Phone Number [facility] (SCOBEY) 1 [facility] [place] [address] * T4, free (02/15/2025 9:40 PM CDT) Free T4 1.13 0.90 - 1.70 ng/dL Blood 02/15/2025 9:40 PM CDT 02/15/2025 9:50 PM CDT Narrative [facility] (SCOBEY) - 02/15/2025 11:48 PM CDT This test was reflexed from a TSH result. us Marlon Capps MD LAB BLOOD ORDERABLES Final R esult [facility] (SCOBEY) 1 [facility] [place] [address] * Phosphorus (02/15/2025 9:40 PM CDT) Phosphorus, pl 3.4 2.3 - 4.5 mg/dL Blood 02/15/2025 9:40 PM CDT 02/15/2025 9:50 PM CDT Marlon Capps MD LAB BLOOD ORDERABLES Final R esult Performing Organization Address City/[facility] Co de Phone Number [facility]EL [facility] (SCOBEY) 1 [facility] [place] [address] * Magnesium (02/15/2025 9:40 PM CDT) Magnesium 1.9 1.4 - 2.5 mg/dL Blood 02/15/2025 9:40 PM CDT 02/15/2025 9:50 PM CDT Marlon Capps MD LAB BLOOD ORDERABLES Final R esult Performing Organization Address City/[facility] Co de Phone Number ISRAEL [facility] (SCOBEY) 1 [facility] [place] [address] * Blood gas, venous (02/15/2025 9:40 PM CDT) pH, Venous 7.38 7.32 - 7.43 PCO2, Venous 45 40 - 50 mmHg [facility]EL [facility] (SCOBEY) PO2, Venous 56 mmHg ISRAEL A (SCOBEY) Comment: Interpretive Data No reference range established. Current interpretive data was last revised 2017. HCO3 Venous, Calculated 26 20 - 30 mmol/L [facility] (SCOBEY) BE, venous 2 mmol/L [facility] (SCOBEY) Comment: Interpretive Data No Reference Range Established Current Interpretive Data was last revised on 2017. Blood 02/15/2025 9:40 PM CDT 02/15/2025 9:50 PM CDT Marlon Capps MD LAB BLOOD ORDERABLES Final R esult Performing Organization Address City/[facility] Co de Phone Number ISRAEL BETANC[facility] (SCOBEY) 1 [facility] [place] [address] * Ethanol (02/15/2025 9:40 PM CDT) Ethanol <10 <=10 mg/dL Comment: Interpretive Data Legal limit of intoxication > or = 80 mg/dL Levels > or = 400 mg/dL are potentially TOXIC. Current interpretive data was last revised on 2018. Blood 02/15/2025 9:40 PM CDT 02/15/2025 9:50 PM CDT Marlon Capps MD LAB BLOOD ORDERABLES Final R esult Performing Organization Address [facility] Co de Phone Number ISRAEL BETANCUR (SCOBEY) 1 [facility] [place] [address] * (ABNORMAL) Valproic acid level, total (02/15/2025 9:40 PM CDT) Valproic Acid <3.0(L) 50.0 - 100.0 mcg/mL Comment: Interpretive Data Therapeutic range: 50-100 mcg/mL Current interpretive data was last revised on 2014 Blood 02/15/2025 9:40 PM CDT 02/15/2025 9:50 PM CDT Marlon Capps MD LAB BLOOD ORDERABLES Final R esult Performing Organization Address City/[facility] Co de Phone Number ISRAEL BETANCUR (SCOBEY) 1 [facility] [place] [address] * Comprehensive metabolic panel (02/15/2025 9:40 PM [...] MD LAB BLOOD ORDERABLES Final R esult [facility] (BERTIN) [address] Department of Laboratories [place] [id number] * POCT glucose (02/15/2025 9:11 PM CDT) Glucose, POC 110 70 - 199 mg/dL Blood 02/15/2025 9:11 PM CDT 02/15/2025 9:11 PM CDT Phani Hobbs MD LAB POCT ORDERABLES - KELSEA CE Final Result ISRAEL [facility] (SCOBEY) 1 [place] [address] * POCT glucose (02/15/2025 8:04 PM CDT) Glucose, POC 102 70 - 199 mg/dL Blood 02/15/2025 8:04 PM CDT 02/15/2025 8:04 PM CDT Quincy Hubbard MD LAB POCT ORDERABLES - DEVICE Final Result [facility]EL [facility] (SCOBEY) 1 [place] [address] * eGFR (02/15/2025 11:09 AM CDT) eGFR [...] BLOOD ORDERABLES Final Re sult ISRAEL BETANCUR (SCOBEY) 1 [facility] [place] [address] * (ABNORMAL) Drugs of Abuse Screen, Urine without Confirmation (02/15/2025 11:09 AM CDT) Amphetamine, ur Not Detected CutOff 500ng/mL [...] last reviewed 2023. Urine Creatinine 156 mg/dL [facility] (BERTIN) Comment: Interpretive [...] to be used for Pain Management purposes. us Yenifer Reagan MD LAB URINE ORDERABLES Final Re sult [facility] (BERTIN) 1 [facility] [place] [address] * (ABNORMAL) CBC without differential (02/15/2025 11:09 AM CDT) WBC 4.15 3.80 - 9.90 K/cumm Hgb 10.3(L) 11.9 - 15.5 g/dL [facility] (BERTIN) Hct 33.4(L) 35.6 - 45.5 % [facility] (BERTIN) Plt 283 150 - 400 K/cumm [facility] ([place]ERTIN) MPV 9.4 9.1 - 12.3 fL [facility] ([place]IN) RBC 4.13 3.90 - 5.20 M/cumm [facility] (BERTIN) MCV 80.9(L) 81.3 - 96.4 fL [facility] (BERTIN) MCH 24.9(L) 27.1 - 33.3 pg [facility] (BERTIN) MCHC 30.8(L) 32.3 - 35.7 g/dL [facility] (BERTIN) RDW CV 18.8(H) 11.1 - 14.9 % [facility] (BERTIN) RDW SD 55.2(H) 35.7 - 48.1 fL [facility] (BERTIN) NRBC abs 0.00 0.00 - 0.01 K/cumm [facility] (BERTIN) Blood 02/15/2025 11:0 9 AM CDT 02/15/2025 11:21 AM CDT us Yenifer Reagan MD LAB BLOOD ORDERABLES Final Re sult [facility] (BERTIN) 1 [facility] [place] [address] * (ABNORMAL) Comprehensive metabolic panel (02/15/2025 11:09 AM CDT) Sodium 139 135 - 145 mmol/L Potassium, pl 4.3 3.3 - 4.9 mmol/L [facility] (BERTIN) Chloride 100 97 - 110 mmol/L [facility] (BERTIN) CO2 20(L) 22 - 32 mmol/L [facility] (BERTIN) Anion gap 20(H) 2 - 15 mmol/L [facility] (BERTIN) BUN 7 6 - 25 mg/dL [facility] ([place]ERTIN) Creatinine 0.67 0.60 - 1.10 mg/dL [facility] (BERTIN) Glucose 80 70 - 199 mg/dL [facility] (BERTIN) [...] 10.3 mg/dL [facility] (BERTIN) Bilirubin, total 0.3 0.1 - 1.2 mg/dL [facility] ([place]ERTIN) Protein, pl 6.8 6.5 - 8.5 g/dL [facility] ([place]ERTIN) Albumin 4.6 3.5 - 5.0 g/dL [facility] ([place]ERTIN) Alk phos 125 40 - 130 Units/L [facility] ([place]ERTIN) ALT 19 7 - 45 Units/L [facility] ([place]ERTIN) AST 30 10 - 45 Units/L [facility] (BERTIN) Comment:Slightly Hemolyzed S pecimen Blood 02/15/2025 11:0 9 AM CDT 02/15/2025 11:21 AM CDT us Yenifer Reagan MD LAB BLOOD ORDERABLES Final Re sult [facility]RAEL BETANCUR (BERTIN) 1 [facility] [place] [address] * Sepsis Lactate w/ Reflex (01/31/2025 2:21 PM CDT) Sepsis Lactate 0.9 0.7 - 2.0 mmol/L Blood 01/31/2025 2:21 PM CDT 01/31/2025 2:26 PM CDT us Chhaya HANKINS LAB BLOOD ORDERABLES Final Resu lt [facility]RAEL BETANCUR (SCOBEY) 1 [facility] [place] [address] * eGFR (01/31/2025 2:21 PM CDT) eGFR >90 >=60 mL/min/1. 73 [...] HANKINS LAB BLOOD ORDERABLES Final Resu lt [facility] (SCOBEY) 1 [facility] [place] [address] * Differential, auto (01/31/2025 2:21 PM CDT) [...] revised on 2017. Monocyte pct 6.3 % [facility] (BERTIN) Comment: Interpretive Data [...] HANKINS LAB BLOOD ORDERABLES Final Resu lt [facility] (BERTIN) 1 [facility] [place] [address] * (ABNORMAL) CBC with auto differential (01/31/2025 2:21 PM CDT) WBC 7.66 3.80 - 9.90 K/cumm Hgb 9.3(L) 11.9 - 15.5 g/dL [facility] (BERTIN) Hct 30.9(L) 35.6 - 45.5 % [facility] (BERTIN) Plt 291 150 - 400 K/cumm [facility] ([place]IN) MPV 9.8 9.1 - 12.3 fL [facility] (BERTIN) RBC 3.83(L) 3.90 - 5.20 M/cumm [facility] (BERTIN) MCV 80.7(L) 81.3 - 96.4 fL [facility] (BERTIN) [...] Final Resu lt [facility] (BERTIN) 1 [facility] [place] [address] * (ABNORMAL) Comprehensive metabolic panel (01/31/2025 2:21 [...] 0.75 0.60 - 1.10 mg/dL [facility] (BERITN) Glucose 99 70 - 199 mg/dL CERNER [...] ORDERABLES Final Resu lt Performing Organization Address City/[facility] Co de Phone Number [facility] (BERTIN) 1 [facility] [place] [address] * ECG 12 lead (01/31/2025 1:34 PM CDT) 01/31/2025 1:34 PM CDT Narrative [facility] - 01/31/2025 6:19 PM CDT Vent Rate: 73 bpm RR Interval: 817 msec WY Interval: 157 msec QRS Duration: 93 msec QT Interval: 425 msec QTC Interval: 451 msec P-R-T [place]: 63 - 8 - 45 degrees IMPRESSION: SINUS RHYTHM NORMAL ECG Compared to prior EKG, heart rate has decreased Electronically Signed By: Ariel Lanier MD Chhaya HANKINS ECG ORDERABLES Final Result Performing Organization Address [facility] Co de Phone Number [facility] [employer] [facility] * IR Port Removal (01/10/2025 9:10 AM CDT) Anatomical Region Laterality Modality Body N/A Radio Fluoroscop y 01/10/2025 11:1 0 AM CDT Impressions 01/10/2025 11:10 AM CDT Successful port removal. PLAN: If a new port is desired, recommend waiting 2 weeks to allow the right chest site to heal before placement of a new port. Electronically signed by: Samuel Mustafa PA-C Narrative 01/10/2025 11:10 AM CDT [...] was obtained. Prior to beginning the procedure, [place] Protocol was used to confirm the patient's [...] was obtained. Prior to beginning the procedure, [place] Protocol was used to confirm the patient's [...] w/ Reflex (01/05/2025 2:04 PM CDT) Pathologist [facility] Sepsis Lactate 1.7 0.7 - 2.0 mmol/L Blood 01/05/2025 2:04 PM CDT 01/05/2025 2:09 PM CDT José Miguel Anders MD LAB BLOOD ORDERABLES Final Res ult [facility] SCOBEY 1 [facility] Department of Laboratories [place], [place] [id number] * eGFR (01/05/2025 2:04 PM CDT) Pathologist [facility] eGFR 89 >=60 mL/min/1. 73 m2 Comment: Interpretive Data Reference Interval Normal >/= 90 mL/min/1.73m2 Mildly decreased* 60 - 89 mL/min/1.73m2 Mildly to moderately decreased 45 - 59 mL/min/1.73m2 Moderately to severely decreased 30 - 44 mL/min/1.73m2 Severely decreased 15 - 29 mL/min/1.73m2 Kidney Failure < 15 mL/min/1.73m2 *Relative to young adult level Estimated glomerular filtration rate is determined by the 202 CKD-EPI equation recommended by the National Kidney [...] BLOOD ORDERABLES Final Res ult [facility] (SCOBEY) 1 [facility] [place] [address] * Differential, auto (01/05/2025 2:04 PM CDT) Neutrophil abs 3.70 1.50 - 6.50 K/cumm Imm gran abs 0.05 0.00 - 0.10 K/cumm [facility] ([place]ERTIN) Lymphocyte abs 1.12 0.80 - 3.30 K/cumm [facility] ([place]IN) Monocyte abs 0.47 0.20 - 0.80 K/cumm [facility] ([place]ERTIN) Eosinophil abs 0.11 0.00 - 0.50 K/cumm [...] Imm gran pct 0.9 % [facility] (BERTIN) Comment: Interpretive Data [...] BLOOD ORDERABLES Final Res ult [facility] (BERTIN) 1 [facility] [place] [address] * (ABNORMAL) CBC with auto differential (01/05/2025 2:04 PM CDT) WBC 5.48 3.80 - 9.90 K/cumm Hgb 8.2(L) 11.9 - 15.5 g/dL [facility] (BERTIN) Hct 27.2(L) 35.6 - 45.5 % [facility] (BERTIN) Plt 306 150 - 400 K/cumm [facility] ([place]) MPV 9.2 9.1 - 12.3 fL [facility] ([place]ERTIN) RBC 3.38(L) 3.90 - 5.20 [...] - 0.01 K/cumm [facility] (BERTIN) Blood 01/05/2025 2:04 PM CDT 01/05/2025 2:09 PM CDT us José Miguel Anders MD LAB BLOOD ORDERABLES Final Res ult [facility] (BERTIN) 1 [facility] [place] [address] * Comprehensive metabolic panel (01/05/2025 2:04 PM CDT) Sodium 140 135 - 145 mmol/L Potassium, pl 3.6 3.3 - 4.9 mmol/L [facility] ([place]ERTIN) Chloride 102 97 - 110 mmol/L [facility] ([place]) CO2 24 22 - 32 mmol/L [facility] ([place]) Anion gap 14 2 - 15 mmol/L [facility] ([place]IN) BUN 12 6 - 25 mg/dL [facility] ([facility] Creatinine 0.89 0.60 - 1.10 mg/dL [facility] (BERTIN) Glucose 110 70 - 199 mg/dL [facility] (BERTIN) [...] ORDERABLES Final Res ult Performing Organization Address City/[facility]/ZIP Co de Phone Number [facility] (BETRIN) 1 [facility] [place] [address] * Neuro MR Outside Reference (01/01/2025 7:06 PM CDT) Impressions [email or web address] - 01/01/2025 7:06 PM CDT These images are for Reference purposes only and have not been reviewed by [facility] Radiology. There will be no report generated by a [facility] Radiologist. Narrative [facility] - 01/01/2025 7:06 PM CDT EXAMINATION: Images For Reference Purposes Only us Ming Mayer MD PhD IMG MRI PROCEDURES Final Result Performing Organization Address City/[facility]/ZIP Co de Phone Number [email or web address] * eGFR [...] 5:34 AM CDT 12/30/2024 6:51 AM CDT us Elisa Quiroz NP LAB BLOOD ORDERABLES Final R esult [facility] [place] [address] * (ABNORMAL) CBC without differential (12/30/2024 5:34 AM CDT) WBC 4.59 3.80 - 9.90 K/cumm Hgb 7.8(L) 11.9 - 15.5 g/dL [facility] Hct 25.3(L) 35.6 - 45.5 % [facility] Plt 170 150 - 400 K/cumm [facility] MPV 10.0 9.1 - 12.3 fL [facility] RBC 3.24(L) 3.90 - 5.20 M/cumm [facility] MCV 78.1(L) 81.3 - 96.4 fL [facility] MCH 24.1(L) 27.1 - 33.3 pg [facility] MCHC 30.8(L) 32.3 - 35.7 g/dL [facility] RDW CV 22.7(H) 11.1 - 14.9 % [facility] RDW SD 65.0(H) 35.7 - 48.1 fL [facility] NRBC abs 0.00 0.00 - 0.01 K/cumm [facility] Blood 12/30/2024 5:34 AM CDT 12/30/2024 6:51 AM CDT Elisa Quiroz NP LAB BLOOD ORDERABLES Final R esult Performing Organization Address City/[facility]/ZIP Co de Phone Number [facility] [place] [address] * (ABNORMAL) Basic metabolic panel (12/30/2024 5:34 AM CDT) [facility] Sodium 140 135 - 145 mmol/L Potassium, pl 3.7 3.3 - 4.9 mmol/L [facility] Chloride 104 97 - 110 mmol/L [facility] CO2 27 22 - 32 mmol/L [facility] Anion gap 9 2 - 15 mmol/L [facility] BUN 13 6 - 25 mg/dL [facility] Creatinine 0.83 0.60 - 1.10 mg/dL [facility] Glucose 92 70 - 199 mg/dL [facility] Comment: Interpretive Data Fasting glucose >/= 126 [...] 2022. Calcium 8.2(L) 8.5 - 10.3 mg/dL [facility] Blood 12/30/2024 5:34 AM CDT 12/30/2024 6:51 AM CDT Elisa Quiroz NP LAB BLOOD ORDERABLES Final R esult Performing Organization Address [facility]/ZIP Co de Phone Number [facility] [place] [address] * Respiratory pathogen panel Nasopharyngeal (12/29/2024 11:58 AM CDT) Pathologist [facility] Influenza A RNA Not Detected Not Detected Influenza B RNA Not Detected Not Detected [facility] RSV RNA Not Detected Not Detected [facility] COVID-19 RNA Not Detected Not Detected [facility] Coronavirus 229E RNA Not Detected Not Detected [facility] Coronavirus HKU1 RNA Not Detected Not Detected [facility] Coronavirus NL63 RNA Not Detected Not Detected [facility] Coronavirus OC43 RNA Not Detected Not Detected [facility] Adenovirus DNA Not Detected Not Detected [facility] Metapneumovirus RNA Not Detected Not Detected [facility] Rhinovirus/Enterov irus RNA Not Detected Not Detected [facility] Parainfluenza 1 RNA Not Detected Not Detected [facility] Parainfluenza 2 RNA Not Detected Not Detected [facility] Parainfluenza 3 RNA Not Detected Not Detected [facility] Parainfluenza 4 RNA Not Detected Not Detected [facility] B. pertussis DNA Not Detected Not Detected [facility] B. parapertussis DNA Not Detected Not Detected [facility] C. pneumoniae DNA Not Detected Not Detected [facility] M. pneumoniae DNA Not Detected Not Detected [facility] Nasopharyngeal 12/29/2024 11 :58 AM CDT 12/29/2024 12:31 PM CDT Narrative [facility] - 12/29/2024 1:24 PM CDT Is the Patient experiencing symptoms consistent with COVID?->No Surveillance testing for transplant patient?->No Interpretive Data The [employer] FilmArray Respiratory Panel (RP2.1) assay is a [...] assay has FDA clearance for testing of MACHINE WELT BUTTER swabs. The performance of additional specimen types has been assessed by the performing laboratory. The performance characteristics of this assay have been determined by [facility] Molecular Infectious Disease Laboratory. Current interpretive data was last revised on 22. us Katie Conteh MD LAB MICROBIOLOGY - GENERAL ORDER SHARON Final Result [facility] [place] [address] * eGFR (12/29/2024 6:25 AM CDT) eGFR [...] 6:25 AM CDT 12/29/2024 6:50 AM CDT us Elisa Quiroz NP LAB BLOOD ORDERABLES Final R esult [facility] [place] [address] * (ABNORMAL) CBC without differential (12/29/2024 6:25 AM CDT) WBC 5.64 3.80 - 9.90 K/cumm Hgb 8.5(L) 11.9 - 15.5 g/dL [facility] Hct 27.1(L) 35.6 - 45.5 % [facility] Plt 184 150 - 400 K/cumm [facility] MPV 9.5 9.1 - 12.3 fL [facility] RBC 3.54(L) 3.90 - 5.20 M/cumm [facility] MCV 76.6(L) 81.3 - 96.4 fL [facility] MCH 24.0(L) 27.1 - 33.3 pg [facility] MCHC 31.4(L) 32.3 - 35.7 g/dL [facility] RDW CV 22.8(H) 11.1 - 14.9 % [facility] RDW SD 62.5(H) 35.7 - 48.1 fL [facility] NRBC abs 0.00 0.00 - 0.01 K/cumm [facility] Blood 12/29/2024 6:25 AM CDT 12/29/2024 6:50 AM CDT Elisa Quiroz NP LAB BLOOD ORDERABLES Final R esult Performing Organization Address City/[facility] Co de Phone Number [facility] Department [place] [address] * Basic metabolic panel (12/29/2024 6:25 AM CDT) [facility] Sodium 142 135 - 145 mmol/L Potassium, pl 3.6 3.3 - 4.9 mmol/L [facility] Chloride 106 97 - 110 mmol/L [facility] CO2 27 22 - 32 mmol/L [facility] Anion gap 9 2 - 15 mmol/L [facility] BUN 11 6 - 25 mg/dL [facility] Creatinine 0.80 0.60 - 1.10 mg/dL [facility] Glucose 100 70 - 199 mg/dL [facility] Comment: Interpretive Data Fasting glucose >/= 126 [...] 2022. Calcium 8.6 8.5 - 10.3 mg/dL [facility] Blood 12/29/2024 6:25 AM CDT 12/29/2024 6:50 AM CDT Elisa Quiroz NP LAB BLOOD ORDERABLES Final R esult Performing Organization Address City/[facility] Co de Phone Number [facility] [place] [address] * eGFR (12/29/2024 2:12 AM CDT) [facility] eGFR >90 >=60 mL/min/1. 73 m2 [...] NP LAB BLOOD ORDERABLES Final R esult [facility] [place] [address] * (ABNORMAL) CBC without differential (12/29/2024 2:12 AM CDT) [facility] WBC 5.73 3.80 - 9.90 K/cumm Hgb 8.3(L) 11.9 - 15.5 g/dL [facility] Hct 27.0(L) 35.6 - 45.5 % [facility] Plt 219 150 - 400 K/cumm [facility] MPV 9.9 9.1 - 12.3 fL [facility] RBC 3.47(L) 3.90 - 5.20 M/cumm [facility] MCV 77.8(L) 81.3 - 96.4 fL [facility] MCH 23.9(L) 27.1 - 33.3 pg [facility] MCHC 30.7(L) 32.3 - 35.7 g/dL [facility] RDW CV 22.6(H) 11.1 - 14.9 % [facility] RDW SD 63.7(H) 35.7 - 48.1 fL [facility] NRBC abs 0.00 0.00 - 0.01 K/cumm [facility] Blood 12/29/2024 2:12 AM CDT 12/29/2024 3:31 AM CDT Elisa Quiroz NP LAB BLOOD ORDERABLES Final R esult Performing Organization Address [facility] Co de Phone Number [facility] Department [place] [address] * Phosphorus (12/29/2024 2:12 AM CDT) Phosphorus, pl 4.5 2.3 - 4.5 mg/dL Blood 12/29/2024 2:12 AM CDT 12/29/2024 3:31 AM CDT Elisa Quiroz NP LAB BLOOD ORDERABLES Final R esult Performing Organization Address [facility] Co de Phone Number [facility] Department [place] [address] * (ABNORMAL) Magnesium (12/29/2024 2:12 AM CDT) Magnesium 3.4(H) 1.4 - 2.5 mg/dL Blood 12/29/2024 2:12 AM CDT 12/29/2024 3:31 AM CDT Elisa Quiroz NP LAB BLOOD ORDERABLES Final R esult Performing Organization Address [facility] Co de Phone Number [facility] Department [place] [address] * (ABNORMAL) Comprehensive metabolic panel (12/29/2024 2:12 AM CDT) Sodium 142 135 - 145 mmol/L Potassium, pl 3.4 3.3 - 4.9 mmol/L [facility] Chloride 105 97 - 110 mmol/L [facility] CO2 27 22 - 32 mmol/L [facility] Anion gap 10 2 - 15 mmol/L [facility] BUN 12 6 - 25 mg/dL [facility] Creatinine 0.84 0.60 - 1.10 mg/dL [facility] Glucose 113 70 - 199 mg/dL [facility] Comment: Interpretive Data Fasting glucose >/= 126 [...] 2022. Calcium 8.5 8.5 - 10.3 mg/dL [facility] Bilirubin, total 0.3 0.1 - 1.2 mg/dL [facility] Protein, pl 6.3(L) 6.5 - 8.5 g/dL [facility] Albumin 3.5 3.5 - 5.0 g/dL [facility] Alk phos 93 40 - 130 Units/L [facility] ALT 16 7 - 45 Units/L [facility] AST 25 10 - 45 Units/L [facility] Blood 12/29/2024 2:12 AM CDT 12/29/2024 3:31 AM CDT us Elisa Quiroz NP LAB BLOOD ORDERABLES Final R esult [facility] Department [place] [address] * Heparin anti factor Xa activity (12/28/2024 [...] NP LAB BLOOD ORDERABLES Final R esult [facility] [place] [address] * XR chest 1 view (Portable) (12/28/2024 [...] pneumothorax. Electronically signed by: Rico Chang M.D. us Elisa Quiroz MACHINE [facility] IMG XR PROCEDURES Final Resu lt * POCT glucose (12/28/2024 11:02 AM CDT) Glucose, POC 76 70 - 199 mg/dL Blood 12/28/2024 11:0 2 AM CDT 12/28/2024 11:02 AM CDT us Marek Coley MD LAB POCT ORDERABLES - KELSEA CE Final Result [facility] [place] [address] * Troponin I high-sensitivity 2-hour (12/28/2024 10:33 [...] I hs pct delta See Comment % [facility]EL CARIAS Comment:Inappropriate collec tion time to report a delta. Trop I hs interp See Comment [facility]EL CARIAS Comment:Inappropriate collec tion time to report a delta. Blood 12/28/2024 10:3 3 AM CDT 12/28/2024 10:46 AM CDT Elisa Quiroz MACHINE [facility] [employer] LAB BLOOD ORDERABLES Final R esult Performing Organization Address [facility] de Phone Number [facility] [address] * Lactate, whole blood (12/28/2024 9:08 AM CDT) Pathologist [facility] Lactate, bld 0.7 0.7 - 2.0 mmol/L Blood 12/28/2024 9:08 AM CDT 12/28/2024 9:27 AM CDT Lucy Blunt MACHINE [facility] [employer] LAB BLOOD ORDERABLES Final Result Performing Organization Address [facility] de Phone Number [facility] [place] [address] * Creatine kinase (CK), total (12/28/2024 9:08 AM CDT) [facility] CK 57 30 - 200 Units/L Blood 12/28/2024 9:08 AM CDT 12/28/2024 9:37 AM CDT Lucy Blunt MACHINE [facility] LAB BLOOD ORDERABLES Final Result Performing Organization Address [facility] de Phone Number [facility] [address] * ECG 12 lead (12/28/2024 6:47 AM CDT) Pathologist [facility] Ventricular Rate EKG/Min 76 BPM [facility] Atrial Rate 76 BPM [facility] [place]-Interval (MSEC) 158 ms [facility] QRS-Interval (MSEC) 76 ms [facility] QT-Interval (MSEC) 416 ms [facility] QTc 468 ms [facility] P [place] 52 degrees [facility] R [place] -2 degrees [facility] T [place] 27 degrees [facility] Diagnosis Normal sinus rhythm Normal ECG When compared with ECG of 12-NOV-2024 21:11, Vent. rate has decreased BY 39 BPM Confirmed by CHRIS RIVER M.D ([id number]) on 12/31/2024 9:41:32 AM [facility] 12/28/2024 6:47 AM CDT 12/31/2024 9:41 AM CDT Elisa Quiroz NP ECG ORDERABLES Final Result Performing Organization Address City/[facility]/ZIP Co de Phone Number [facility] * Type and screen (12/28/2024 6:46 AM CDT) Dorothy, indirect Negative ABO Rh O Negative [facility] Blood 12/28/2024 6:46 AM CDT 12/28/2024 9:31 AM CDT Elisa Quiroz NP LAB BLOOD BANK TEST ORDERABL ES Final Result Performing Organization Address [facility] Co de Phone Number [facility] Department [place] [address] * POCT glucose (12/28/2024 6:31 AM CDT) Glucose, POC 80 70 - 199 mg/dL Blood 12/28/2024 6:31 AM CDT 12/28/2024 6:31 AM CDT Marshall Crane MD PhD LAB POCT ORDERA BLES - DEVICE Final Result Performing Organization Address City/[facility]/ZIP Co de Phone Number [facility] Department [place] [address] * Troponin I high-sensitivity series (baseline, 2hr, 4hr, 6hr) (12/28/2024 6:29 AM CDT) Trop I hs <4 <=17 ng/L Comment: Interpretive Data For further hscTnI resources including the diagnostic algorithm and an aid in interpretation, copy and paste this link: https://bjhlab.testcatalog.org/show/hsTrop-1 Current Interpretive Data last revised 2020. Blood 12/28/2024 6:29 AM CDT 12/28/2024 9:37 AM CDT us Elisa Quiroz NP LAB BLOOD ORDERABLES Final R esult [facility] [place] [address] * eGFR (12/28/2024 6:29 AM CDT) eGFR [...] CDT 12/28/2024 9:37 AM CDT us Elisa Quiroz NP LAB BLOOD ORDERABLES Final R esult [facility] [place] [address] * (ABNORMAL) aPTT (12/28/2024 6:29 AM CDT) [...] ORDERABLES Final R esult Performing Organization Address [facility] [place] [address] * Protime-INR (12/28/2024 6:29 AM CDT) PT 11.2 9.7 - 13.0 sec INR 1.04 0.90 - 1.20 [facility] Comment: Interpretive data Oral anticoagulant therapeutic ranges: Venous thromboembolism prophylaxis or treatment: 2.0-3.0 CARDIOLOGY Standard range: 2.0-3.0 High-intensity range: 2.5-3.5 Refer to indication-specific guidelines for appropriate target ranges for prosthetic heart valve replacement. Current interpretive data was last revised on 2019. Blood 12/28/2024 6:29 AM CDT 12/28/2024 9:30 AM CDT Elisa Quiroz NP LAB BLOOD ORDERABLES Final R esult Performing Organization Address [facility] Co de Phone Number [facility] [place] [address] * (ABNORMAL) CBC without differential (12/28/2024 6:29 AM CDT) [facility] WBC 5.23 3.80 - 9.90 K/cumm Hgb 8.7(L) 11.9 - 15.5 g/dL [facility] Hct 29.1(L) 35.6 - 45.5 % [facility] Plt 264 150 - 400 K/cumm [facility] MPV 9.6 9.1 - 12.3 fL [facility] RBC 3.68(L) 3.90 - 5.20 M/cumm [facility] MCV 79.1(L) 81.3 - 96.4 fL [facility] MCH 23.6(L) 27.1 - 33.3 pg [facility] MCHC 29.9(L) 32.3 - 35.7 g/dL [facility] RDW CV 22.5(H) 11.1 - 14.9 % [facility] RDW SD 63.4(H) 35.7 - 48.1 fL [facility] NRBC abs 0.00 0.00 - 0.01 K/cumm [facility] Blood 12/28/2024 6:29 AM CDT 12/28/2024 9:37 AM CDT Elisa Quiroz NP LAB BLOOD ORDERABLES Final R esult Performing Organization Address City/[facility]/ZIP Co de Phone Number [facility] [place] [address] * (ABNORMAL) Phosphorus (12/28/2024 6:29 AM CDT) [facility] Phosphorus, pl 4.7(H) 2.3 - 4.5 mg/dL Blood 12/28/2024 6:29 AM CDT 12/28/2024 9:37 AM CDT Elisa Quiroz NP LAB BLOOD ORDERABLES Final R esult [facility] [place] [address] * Magnesium (12/28/2024 6:29 AM CDT) Magnesium 2.4 1.4 - 2.5 mg/dL Blood 12/28/2024 6:29 AM CDT 12/28/2024 9:37 AM CDT Elisa Quiroz NP LAB BLOOD ORDERABLES Final R esult [facility] [place] [address] * (ABNORMAL) Comprehensive metabolic panel (12/28/2024 6:29 AM CDT) Pathologist [facility] Sodium 146(H) 135 - 145 mmol/L Potassium, pl 3.8 3.3 - 4.9 mmol/L [facility] Chloride 111(H) 97 - 110 mmol/L [facility] CO2 27 22 - 32 mmol/L [facility] Anion gap 8 2 - 15 mmol/L [facility] BUN 12 6 - 25 mg/dL [facility] Creatinine 0.86 0.60 - 1.10 mg/dL [facility] Glucose 96 70 - 199 mg/dL [facility] Comment: Interpretive Data Fasting glucose >/= 126 [...] 2022. Calcium 8.9 8.5 - 10.3 mg/dL [facility] Bilirubin, total 0.3 0.1 - 1.2 mg/dL [facility] Protein, pl 6.5 6.5 - 8.5 g/dL [facility] Albumin 3.8 3.5 - 5.0 g/dL [facility] Alk phos 94 40 - 130 Units/L [facility] ALT 14 7 - 45 Units/L [facility] AST 20 10 - 45 Units/L [facility] Blood 12/28/2024 6:29 AM CDT 12/28/2024 9:37 AM CDT Elisa Quiroz NP LAB BLOOD ORDERABLES Final R esult [facility] [place] [address] * CT Chest Abdomen Pelvis W Contrast [...] Oz Correia M.D. KH: OSORIO Report ID: [id number] Reading Location: [place] [address] Procedure Note Oz Correia MD - 12/27/2024 [...] Electronically signed by Oz Correia M.D. KH: KH Report ID: [id number] Reading Location: [id number] us Georges Figueroa MD IMG CT PROCEDURES [...] signed by Oz AC: OSORIO Report ID: [id number] Reading Location: [id number] Procedure Note Oz Correia MD - 12/27/2024 [...] signed by Oz AC: OSORIO Report ID: [id number] Reading Location: [id number] Vaughn Dee MD IMG CT PROCEDURES Final [...] Carmelo Ulloa M.D. MF: [id number] Report ID: [id number] Reading Location: [id number] Procedure Note Carmelo Ulloaory, DO - 12/27/2024 EXAM DESCRIPTION: XR CHEST [...] Carmelo Ulloa M.D. MF: [id number] Report ID: [id number] Reading Location: [place] [address] Vaughn Dee MD IMG XR PROCEDURES Final [...] MD LAB BLOOD ORDERABLES Final Result ISRAEL FIG (SCOBEY 1 [facility] Department [place] [address] * eGFR (12/27/2024 8:29 PM CDT) eGFR [...] LAB BLOOD ORDERABLES Final Result [facility] (SCOBEY) 1 [facility] [place] [address] * Differential, auto (12/27/2024 8:29 PM CDT) Neutrophil abs 3.89 1.50 - 6.50 K/cumm Imm gran abs 0.01 0.00 - 0.10 K/cumm [facility] Lymphocyte abs 1.37 0.80 - 3.30 K/cumm [facility] ([facility]) Monocyte abs 0.70 0.20 - 0.80 K/cumm [facility] ([facility]) Eosinophil abs 0.11 0.00 - 0.50 K/cumm [facility] ([place]) Basophil abs 0.03 0.00 - 0.10 K/cumm [facility] ([facility]) Neutrophil pct 63.6 % [facility] [...] on 2017. Monocyte pct 11.5 % [facility] ([facility]) Comment: Interpretive Data Percent cell count reference ranges are not reported, since discordance with absolute values may lead to misinterpretation of CBC data. Current Interpretive Data was last revised on 2017. Eosinophil pct 1.8 % [facility] ([facility]) Comment: Interpretive Data Percent cell count reference ranges are not reported, since discordance with absolute values may lead to misinterpretation of CBC data. Current Interpretive Data was last revised on 2017. Basophil pct 0.5 % [facility] ([facility]ERT[facility]) Comment: Interpretive Data Percent cell count reference ranges are not reported, since discordance with absolute values may lead to misinterpretation of CBC data. Current Interpretive Data was last revised on 2017. Blood 12/27/2024 8:29 PM CDT 12/27/2024 9:07 PM CDT us Vaughn Dee MD LAB BLOOD ORDERABLES Final Result [facility]EL BETANCUR (SCOBEY) 1 [facility] Department [place] [address] * (ABNORMAL) CBC with auto differential (12/27/2024 8:29 PM CDT) WBC 6.11 3.80 - 9.90 K/cumm Hgb 9.4(L) 11.9 - 15.5 g/dL [facility] (BERTIN) Hct 31.7(L) 35.6 - 45.5 % [facility] (BERTIN) Plt 285 150 - 400 K/cumm [facility] (BERTIN) MPV 9.4 9.1 - 12.3 fL [facility] ([facility]) RBC 3.95 3.90 - 5.20 M/cumm [facility] ([place]) MCV 80.3(L) 81.3 - 96.4 fL [facility] ([place]) MCH 23.8(L) 27.1 - 33.3 pg [facility] ([place]ERT[place]) MCHC 29.7(L) 32.3 - 35.7 g/dL [facility] ([place]) RDW CV 21.8(H) 11.1 - 14.9 % [facility] ([facility]ERT[facility]) RDW SD 61.0(H) 35.7 - 48.1 fL [facility] ([place]ERT[place]) NRBC abs 0.00 0.00 - 0.01 K/cumm [facility] ([facility]ERTIN) Blood 12/27/2024 8:29 PM CDT 12/27/2024 9:07 PM CDT Vaughn Dee MD LAB BLOOD ORDERABLES Final Result [facility] BETANCUR (BERTIN) 1 [facility] Department [place] [address] * (ABNORMAL) Levetiracetam level (12/27/2024 8:29 PM CDT) [facility] Signature Levetiracetam (Keppra) 2.5(L) 10.0 - 40.0 mcg/mL [place] [facility] Comment: ADDITIONAL INFORMATION This test was developed and its performance characteristics determined by [facility] in a manner consistent with CLIA requirements. This test has not been cleared or approved by the U.S. Food and Drug Administration. Test Performed by: [facility] - [address] [address] [employer]: Sis Dominguez Ph.D.; CLIA# [id number] Blood 12/27/2024 8:29 PM CDT 12/28/2024 3:39 AM CDT Vaughn Dee MD LAB BLOOD ORDERABLES Final Result [facility] BETANCUR (BERTIN) 1 [facility] [place] [address] [place] [facility] * Blood culture Blood (12/27/2024 8:29 PM CDT) Report Final Report: No growth Comment:Testing performed by : [facility], [address] [place]., [address] Blood 12/27/2024 8:29 PM CDT 12/28/2024 12:53 AM CDT Narrative ISRAEL BETANCUR (BERTIN) - 01/01/2025 7:00 AM CDT Collection->Peripheral [...] performance characteristics have been verified by the [facility] Microbiology [facility]. For questions about this culture, contact the Microbiology Laboratory at [phone]. Interpretive data was last revised on 24. Vaughn Dee MD LAB MICROBIOLOGY - GENERAL ORDERABLES Final Result [facility] BETANCUR (BERTIN) 1 [facility] [place] [address] * Blood culture Blood (12/27/2024 8:29 PM CDT) Report Final Report: No growth Comment:Testing performed by : [facility], [address] [place]., [address] Blood 12/27/2024 8:29 PM CDT 12/28/2024 12:53 AM CDT Narrative ESTEFANÍAALLISON [facility] (BERTIN) - 01/01/2025 7:00 AM CDT Collection->Peripheral [...] performance characteristics have been verified by the [facility] Microbiology [facility]. For questions about this culture, contact the Microbiology Laboratory at [phone]. Interpretive data was last revised on 24. us Vaughn Dee MD LAB MICROBIOLOGY - GENERAL ORDERABLES Final Result [facility]UR (BERTIN) 1 [facility] Department [place] [address] * aPTT (12/27/2024 8:29 PM CDT) aPTT [...] BLOOD ORDERABLES Final Result Performing Organization Address City/[facility] Co de Phone Number [facility]RAEL BETANCUR (SCOBEY) 1 [facility] [place] [address] * Protime-INR (12/27/2024 8:29 PM CDT) PT 10.3 9.7 - 13.0 sec [facility] BETANCUR (SCOBEY) INR 0.95 0.90 - 1.20 [facility] (SCOBEY) Comment: Interpretive data Oral anticoagulant therapeutic ranges: Venous thromboembolism prophylaxis or treatment: 2.0-3.0 CARDIOLOGY Standard range: 2.0-3.0 High-intensity range: 2.5-3.5 Refer to indication-specific guidelines for appropriate target ranges for prosthetic heart valve replacement. Current interpretive data was last revised on 2019. Blood 12/27/2024 8:29 PM CDT 12/27/2024 9:07 PM CDT Vaughn Dee MD LAB BLOOD ORDERABLES Final Result Performing Organization Address [facility] Co de Phone Number [facility]EL BETANCUR (SCOBEY) 1 [facility] [place] [address] * CRP (acute phase) (12/27/2024 8:29 PM CDT) CRP 5.5 <=10.0 mg/L Blood 12/27/2024 8:29 PM CDT 12/28/2024 3:39 AM CDT Vaughn Dee MD LAB BLOOD ORDERABLES Final Result Performing Organization Address City/[facility]/ZIP Co de Phone Number [facility] BETANCUR (SCOBEY) [address] [place] [address] * hCG, blood, quantitative (12/27/2024 8:29 PM [...] Edited Result - Final Performing Organization Address City/[facility] Co de Phone Number [facility] BETANCUR (SCOBEY) [address] [place] [address] * Magnesium (12/27/2024 8:29 PM CDT) Pathologist [facility] Magnesium 2.0 1.4 - 2.5 mg/dL Blood 12/27/2024 8:29 PM CDT 12/28/2024 3:39 AM CDT Vaughn Dee MD LAB BLOOD ORDERABLES Final Result [facility] (SCOBEY) [address] [place] [address] * Ethanol (12/27/2024 8:29 PM CDT) Ethanol <10 <=10 mg/dL Comment: Interpretive Data Legal limit of intoxication > or = 80 mg/dL Levels > or = 400 mg/dL are potentially TOXIC. Current interpretive data was last revised on 2018. Blood 12/27/2024 8:29 PM CDT 12/27/2024 9:07 PM CDT us Vaughn Dee MD LAB BLOOD ORDERABLES Final Result [facility] ([facility]) [address] [place] [address] * Acetaminophen level (12/27/2024 8:29 PM CDT) [...] after ingestion Consult toxicology or poison control ([phone]) for unknown ingestion time. Current interpretive data was last revised 2023. Blood 12/27/2024 8:29 PM CDT 12/27/2024 9:07 PM CDT us Vaughn Dee MD LAB BLOOD ORDERABLES Final Result Performing Organization Address [facility] Co de Phone Number [facility] ([place]ERT[place]) 1 [facility] [place] [address] * (ABNORMAL) Valproic acid level, total (12/27/2024 8:29 PM CDT) Valproic Acid 12.6(L) 50.0 - 100.0 mcg/mL Comment: Interpretive Data Therapeutic range: 50-100 mcg/mL Current interpretive data was last revised on 2014 Blood 12/27/2024 8:29 PM CDT 12/27/2024 9:07 PM CDT Vaughn Dee MD LAB BLOOD ORDERABLES Final Result [facility] (BERTIN) 1 [facility] Department [place] [address] * (ABNORMAL) Comprehensive metabolic panel (12/27/2024 8:29 [...] ORDERABLES Final Result [facility]RAEL BETANCUR (BERTIN) 1 [facility] [place] [address] * Comprehensive metabolic panel (12/27/2024 8:29 PM [...] ORDERABLES Final Result ISRAEL BETANCUR (BERTIN) 1 [facility] [place] [address] * Urinalysis reflex to microscopic and culture [...] tendency for uric acid stone formation. Source: [facility] Current Interpretive Data was last revised on 2017 Protein, ur ql Negative Negative [facility] ([facility]) Glucose, ur ql Negative Negative [facility] ([facility]IT[facility]) Ketones, ur Negative Negative [facility] [...] 8:27 PM CDT 12/27/2024 9:51 PM CDT us Vaughn Dee MD LAB MICROBIOLOGY - GENERAL ORDERABLES Final Result [facility] BETANCUR (BERTIN) 1 [facility] [place] [address] * (ABNORMAL) Drugs of Abuse Screen, Urine without Confirmation (12/27/2024 8:27 PM CDT) [facility] Amphetamine, ur Not Detected CutOff 500ng/mL Comment: [...] 2023. Methadone, ur Not Detected CutOff 300ng/mL [facility] (BERTIN) Comment: Interpretive Data - Methadone: Samples containing greater than 300 ng/mL d,l-methadone or other cross-reacting compounds are reported as positive. False positive and false negative results are possible. Confirmatory testing required for definitive results. Current Interpretive Data was last reviewed 2023. Opiates, ur Not Detected CutOff 300ng/mL [facility] (BERTIN) Comment: Interpretive Data - Opiates: Samples [...] last reviewed 2023. Urine Creatinine 38 mg/dL [facility] (BERTIN) Comment: Interpretive Data Urine Creatinine: < 10 mg/dL is extremely dilute = or > 10 but < 20 mg/dL is dilute = or > 20 mg/dL is normal Current Interpretive Data was last revised on 2017. Urine 12/27/2024 8:27 PM CDT 12/27/2024 9:51 PM CDT Narrative [facility]ANC[facility] (BERTIN) - 12/27/2024 10:22 PM CDT Drug of Abuse screening is performed by immunoassay for medical purposes only. This is not to be used for Pain Management purposes. Vaughn Dee MD LAB URINE ORDERABLES Final Result Performing Organization Address City/[facility] [place]/ZIP Co de Phone Number ISRAEL PAULINO) 1 [facility] [place] [address] * ECG 12 lead (12/27/2024 8:11 PM CDT) 12/27/2024 8:11 PM CDT Narrative [facility] - 12/30/2024 10:54 AM CDT Vent Rate: 101 bpm RR Interval: 590 msec [place] Interval: 148 msec QRS Duration: 90 msec QT Interval: 354 msec QTC Interval: 412 msec P-R-T [place]: 35 - -15 - 4 degrees IMPRESSION: SINUS TACHYCARDIA MODERATE VOLTAGE CRITERIA FOR LVH, CONSIDER NORMAL VARIANT [MEETS CRITERIA IN ONE OF: R(aVL), S(V1), R(V5), R(V5/V6)+S(V1)] ABNORMAL RHYTHM ECG Compared to prior EKG, heart rate has increased Electronically Signed By: Ariel Lanier MD Vaughn Dee MD ECG ORDERABLES Final Resul t Performing Organization Address City/[facility] Co de Phone Number [facility] [employer] [facility] * eGFR (12/26/2024 3:51 PM CDT) eGFR [...] NP LAB BLOOD ORDERABLES Final Re sult [facility] [address] [place] [address] * Differential, auto (12/26/2024 3:51 PM CDT) Neutrophil abs 3.45 1.50 - 6.50 K/cumm Imm gran abs 0.02 0.00 - 0.10 K/cumm [facility] Lymphocyte abs 1.29 0.80 - 3.30 K/cumm [facility] Monocyte abs 0.53 0.20 - 0.80 K/cumm [facility] Eosinophil abs 0.12 0.00 - 0.50 K/cumm [facility] Basophil abs 0.02 0.00 - 0.10 K/cumm [facility] Neutrophil pct 63.4 % [facility] Comment: Interpretive Data Percent cell count reference ranges are not reported, since discordance with absolute values may lead to misinterpretation of CBC data. Current Interpretive Data was last revised on 2017. Imm gran pct 0.4 % [facility] Comment: Interpretive Data Percent cell count reference ranges are not reported, since discordance with absolute values may lead to misinterpretation of CBC data. Current Interpretive Data was last revised on 2017. Lymphocyte pct 23.8 % [facility] Comment: Interpretive Data Percent cell count reference ranges are not reported, since discordance with absolute values may lead to misinterpretation of CBC data. Current Interpretive Data was last revised on 2017. Monocyte pct 9.8 % [facility] Comment: Interpretive Data Percent cell count reference ranges are not reported, since discordance with absolute values may lead to misinterpretation of CBC data. Current Interpretive Data was last revised on 2017. Eosinophil pct 2.2 % [facility] Comment: Interpretive Data Percent cell count reference ranges are not reported, since discordance with absolute values may lead to misinterpretation of CBC data. Current Interpretive Data was last revised on 2017. Basophil pct 0.4 % [facility] Comment: Interpretive Data Percent cell count reference ranges are not reported, since discordance with absolute values may lead to misinterpretation of CBC data. Current Interpretive Data was last revised on 2017. Blood 12/26/2024 3:51 PM CDT 12/26/2024 7:42 PM CDT Destiny Alfaro NP LAB BLOOD ORDERABLES Final Re sult Performing Organization Address City/[facility] Co de Phone Number [facility] [address] Department [place] [address] * (ABNORMAL) CBC with auto differential (12/26/2024 3:51 PM CDT) WBC 5.43 3.80 - 9.90 K/cumm Hgb 9.4(L) 11.9 - 15.5 g/dL [facility] Hct 32.1(L) 35.6 - 45.5 % [facility] Plt 332 150 - 400 K/cumm [facility] MPV 10.0 9.1 - 12.3 fL [facility] RBC 3.98 3.90 - 5.20 M/cumm [facility] MCV 80.7(L) 81.3 - 96.4 fL [facility] MCH 23.6(L) 27.1 - 33.3 pg [facility] MCHC 29.3(L) 32.3 - 35.7 g/dL [facility] RDW CV 21.4(H) 11.1 - 14.9 % [facility] RDW SD 59.9(H) 35.7 - 48.1 fL [facility] NRBC abs 0.00 0.00 - 0.01 K/cumm [facility] Blood 12/26/2024 3:51 PM CDT 12/26/2024 7:42 PM CDT Destiny Alfaro NP LAB BLOOD ORDERABLES Final Re sult Performing Organization Address City/State/[facility] Co de Phone Number [place] [address] [facility] [place] [address] * TSH (12/26/2024 3:51 PM CDT) Pathologist [facility] Thyroid Stimulating Hormone 2.94 0.30 - 4.20 mcIUnit/mL Blood 12/26/2024 3:51 PM CDT 12/26/2024 7:42 PM CDT Destiny Alfaro MACHINE [employer] LAB BLOOD ORDERABLES Final Re sult Performing Organization Address [facility] Co de Phone Number [facility] [address] [facility] [place] [address] * T4, free (12/26/2024 3:51 PM CDT) Pathologist [facility] Free T4 1.05 0.90 - 1.70 ng/dL Blood 12/26/2024 3:51 PM CDT 12/26/2024 7:42 PM CDT Destiny Alfaro NP LAB BLOOD ORDERABLES Final Re sult Performing Organization Address [facility] de Phone Number [place] [phone] [facility] [place] [address] * Hemoglobin A1c (12/26/2024 3:51 PM CDT) Pathologist [facility] Hgb A1C 4.7 4.0 - 5.6 % Estimated Average Glucose 88 mg/dL ISRAEL LEDESMA Comment: The ADA recommends reporting an estimated Average Glucose (eAG) with all Hemoglobin A1c results using the equation derived from a study of 507 normal and diabetic adults. Minority populations were underrepresented and children were not included. (Diabetes Care 31:7127-8619, 2008). The eAG is not equivalent to a fasting glucose. Blood 12/26/2024 3:51 PM CDT 12/26/2024 7:42 PM CDT Destiny Alfaro MACHINE [employer] LAB BLOOD ORDERABLES Final Re sult Performing Organization Address [facility]/ZIP Co de Phone Number ISRAEL LEDESMA [address] Department [place], [place] [id number] * Ferritin (12/26/2024 3:51 PM CDT) [facility] Ferritin 50 15 - 150 ng/mL Blood 12/26/2024 3:51 PM CDT 12/26/2024 7:42 PM CDT Destiny Angelina SCHRADER LAB BLOOD ORDERABLES Final Re sult Performing Organization Address [facility] Co de Phone Number ISRAEL LEDESMA [phone] [place] [address] * (ABNORMAL) Valproic acid level, total (12/26/2024 3:51 PM CDT) [facility] Valproic Acid 30.1(L) 50.0 - 100.0 mcg/mL Blood 12/26/2024 3:51 PM CDT 12/26/2024 7:42 PM CDT Destiny Alfaro MACHINE [employer] LAB BLOOD ORDERABLES Final Re sult Performing Organization Address [facility] Co de Phone Number ISRAEL LEDESMA [phone] Department of [place], [place] [id number] * (ABNORMAL) Comprehensive metabolic panel (12/26/2024 3:51 PM CDT) Pathologist [facility] Sodium 138 135 - 145 mmol/L Potassium, pl 4.1 3.3 - 4.9 mmol/L [facility] Chloride 104 97 - 110 mmol/L [facility] CO2 24 22 - 32 mmol/L [facility] Anion gap 10 2 - 15 mmol/L [facility] BUN 10 6 - 25 mg/dL [facility] Creatinine 0.58(L) 0.60 - 1.10 mg/dL [facility] Glucose 99 70 - 199 mg/dL [facility] [...] Calcium 8.9 8.5 - 10.3 mg/dL [facility] Bilirubin, total 0.2 0.1 - 1.2 mg/dL [facility] Protein, pl 6.8 6.5 - 8.5 g/dL [facility] Albumin 3.9 3.5 - 5.0 g/dL [facility] Alk phos 106 40 - 130 Units/L [facility] ALT 10 7 - 45 Units/L [facility] AST 27 10 - 45 Units/L [facility] Blood 12/26/2024 3:51 PM CDT 12/26/2024 7:42 PM CDT us Destiny Alfaro NP LAB BLOOD ORDERABLES Final Re sult [place] [address] Department [place] [address] * eGFR (12/12/2024 2:54 PM [...] BLOOD ORDERABLES Final Re sult [facility] ([place]) 1 [facility] [place] [address] * Differential, auto (12/12/2024 2:54 PM CDT) Neutrophil abs 2.95 1.50 - 6.50 K/cumm Imm gran abs 0.01 0.00 - 0.10 K/cumm [facility] ([place]) Lymphocyte abs 1.28 0.80 - 3.30 K/cumm [facility] ([place]) Monocyte abs 0.39 0.20 - 0.80 K/cumm [facility] ([place]) Eosinophil abs 0.13 0.00 - 0.50 K/cumm [facility] ([place]) Basophil abs 0.04 0.00 - 0.10 K/cumm [facility] ([place]) Neutrophil pct 61.5 % [facility] ([place]) Comment: Interpretive Data Percent cell count reference [...] revised on 2017. Monocyte pct 8.1 % [facility] ([place]) Comment: Interpretive Data [...] revised on 2017. Basophil pct 0.8 % [facility] ([place]) Comment: Interpretive Data Percent cell count reference ranges are not reported, since discordance with absolute values may lead to misinterpretation of CBC data. Current Interpretive Data was last revised on 2017. Blood 12/12/2024 2:54 PM CDT 12/12/2024 3:06 PM CDT us Destiny Alfaro MACHINE [employer] LAB BLOOD ORDERABLES Final Re sult [facility] ([place]) 1 [facility] [place] [address] * (ABNORMAL) CBC with auto differential (12/12/2024 2:54 PM CDT) WBC 4.80 3.80 - 9.90 K/cumm Hgb 8.5(L) 11.9 - 15.5 g/dL [facility] ([place]) Hct 29.4(L) 35.6 - 45.5 % [facility] ([place]) Plt 269 150 - 400 K/cumm [facility] ([place]) MPV 10.1 9.1 - 12.3 fL [facility] ([place]) RBC 3.79(L) 3.90 - 5.20 M/cumm [facility] ([place]) MCV 77.6(L) 81.3 - 96.4 fL [facility] ([place]) MCH 22.4(L) 27.1 - 33.3 pg [facility] ([place]) MCHC 28.9(L) 32.3 - 35.7 g/dL [facility] ([place]) RDW CV 17.5(H) 11.1 - 14.9 % [facility] ([place]) RDW SD 49.7(H) 35.7 - 48.1 fL [facility] ([place]) NRBC abs 0.00 0.00 - 0.01 K/cumm [facility] ([place]) Blood 12/12/2024 2:54 PM CDT 12/12/2024 3:06 PM CDT us Destiny Alfaro NP LAB BLOOD ORDERABLES Final Re sult [facility] ([place]) 1 [facility] [place] [address] * (ABNORMAL) Comprehensive metabolic panel (12/12/2024 2:54 PM CDT) Sodium 138 135 - 145 mmol/L Potassium, pl 4.2 3.3 - 4.9 mmol/L [facility] Chloride 102 97 - 110 mmol/L [facility] ([place]) CO2 20(L) 22 - 32 mmol/L [facility] ([place]) Anion gap 16(H) 2 - 15 mmol/L [facility] ([place]) BUN 11 6 - 25 mg/dL [facility] ([place]) Creatinine 0.62 0.60 - 1.10 mg/dL [facility] ([place]) Glucose 87 70 - 199 mg/dL [facility] ([place]) Comment: Interpretive Data Fasting glucose [...] Final Re sult [facility] ([place]) 1 [facility] [place] [address] * POCT hCG, urine (12/08/2024 7:52 PM [...] 2023. Barbiturates, ur Not Detected CutOff 200ng/mL [facility] ([place] Comment: Interpretive Data - Barbiturates: [...] Oxycodone, ur Not Detected CutOff 100ng/mL [place]EL [facility] ([place]) Comment: Interpretive Data - Oxycodone: Samples containing greater than 100 ng/mL oxycodone or other cross-reacting compounds are reported as positive. False positive and false negative results are possible. Confirmatory testing required for definitive results. Current Interpretive Data was last reviewed 2023. Phencyclidine, ur Not Detected CutOff 25 ng/mL [place]EL [facility] ([place]) Comment: Interpretive Data - Phencyclidine: Samples containing greater than 25 ng/mL phencyclidine or other cross-reacting compounds are reported as positive. False positive and false negative results are possible. Confirmatory testing required for definitive results. Current Interpretive Data was last reviewed 2023. Urine Creatinine 222 mg/dL [facility] ([place]) Comment: Interpretive Data Urine Creatinine: < 10 mg/dL is extremely dilute = or > 10 but < 20 mg/dL is dilute = or > 20 mg/dL is normal Current Interpretive Data was last revised on 2017. Urine 12/08/2024 7:51 PM CDT 12/08/2024 7:55 PM CDT Narrative [facility] ([place]) - 12/08/2024 8:35 PM CDT Drug of Abuse screening is performed by immunoassay for medical purposes only. This is not to be used for Pain Management purposes. Christopher Baca NP LAB URINE ORDERABLES Final Result [place]EL [facility] ([place]) 1 [facility] [place] [address] * (ABNORMAL) Urinalysis reflex to microscopic and culture Urine (12/08/2024 7:48 PM CDT) Color, ur Yellow Yellow Clarity, ur Clear Clear IS[place]EL Burgos ([place]) Specific gravity, ur 1.036(H) 1.003 - 1.030 [place]EL [facility] ([place]) pH, urine 6.0 [place] [facility] ([place]) Comment: Interpretive Data U rine pH is affected by diet, medications, systemic acid-base disturbances, and renal tubular function. pH may affect urinary stone formation. For example, urine pH below 6.0 may help reduce the tendency for calcium phosphate stones and pH greater than 6.0 may reduce the tendency for uric acid stone formation. Source: [facility] Current Interpretive Data was last revised on [...] 7:48 PM CDT 12/08/2024 7:55 PM CDT Christopher Baca NP LAB MICROBIOLOGY - GENERAL ORDERABLES Final Result [place]EL [facility] ([place]) 1 [facility] [place] [address] * eGFR (12/08/2024 7:08 PM CDT) eGFR [...] CDT 12/08/2024 7:10 PM CDT Christopher Baca MACHINE [employer] LAB BLOOD ORDERABLES Final Result [place] [facility] ([place]) 1 [facility] [place] [address] * (ABNORMAL) Differential, auto (12/08/2024 7:08 PM CDT) Neutrophil abs 2.74 1.50 - 6.50 K/cumm Imm gran abs 0.02 0.00 - 0.10 K/cumm [facility] ([place]) Lymphocyte abs 0.58(L) 0.80 - 3.30 K/cumm [facility] ([place]) Monocyte abs 0.56 0.20 - 0.80 K/cumm [facility] ([place]) Eosinophil abs 0.08 0.00 - 0.50 K/cumm [facility] ([place]) Basophil abs 0.02 0.00 - 0.10 K/cumm [facility] ([place]) Neutrophil pct 68.5 % [facility] ([place]) Comment: Interpretive Data Percent cell count reference [...] Lymphocyte pct 14.5 % [facility] ([place]) Comment: Interpretive Data Percent cell count reference ranges are not reported, since discordance with absolute values may lead to misinterpretation of CBC data. Current Interpretive Data was last revised on 2017. Monocyte pct 14.0 % [facility] ([place]) Comment: Interpretive Data Percent cell count reference [...] Baca NP LAB BLOOD ORDERABLES Final Result [facility] ([place]) 1 [facility] [place] [address] * (ABNORMAL) CBC with auto differential (12/08/2024 [...] ([place]) MCHC 30.0(L) 32.3 - 35.7 g/dL [facility] ([place]) RDW CV 17.2(H) 11.1 - 14.9 % [facility] ([place]) RDW SD 46.5 35.7 - 48.1 fL [facility] ([place]) NRBC abs 0.00 0.00 - 0.01 K/cumm [facility] ([place]) Blood 12/08/2024 7:08 PM CDT 12/08/2024 7:10 PM CDT us Christopher Baac NP LAB BLOOD ORDERABLES Final Result [facility] ([place]) 1 [facility] [place] [address] * (ABNORMAL) Comprehensive metabolic panel (12/08/2024 7:08 PM CDT) Sodium 136 135 - 145 mmol/L Potassium, pl 3.1(L) 3.3 - 4.9 mmol/L [facility] ([place]) [...] ([place]) AST 20 10 - 45 Units/L [facility] ([place] Blood 12/08/2024 7:08 PM CDT 12/08/2024 7:10 PM CDT us Christopher Baca NP LAB BLOOD ORDERABLES Final Result [facility] ([place]) 1 [facility] [place] [address] * Influenza A/B, RSV, and COVID-19 PCR Nasopharyngeal (12/08/2024 6:52 PM CDT) COVID-19 RNA Negative Negative Influenza A RNA Negative Negative [facility] ([place]) Influenza B RNA Negative Negative [facility] ([place] RSV RNA Negative Negative [facility] ([place]) Comment: Interpretive data: Testing performed by [facility]. This test is performed using the [employer] Xpert Xpress CoV-2/Flu/RSV plus assay. This is a multiplex, real- time reverse transcriptase PCR assay intended for the qualitative detection of nucleic acid from SARS-CoV-2, influenza A, influenza B, and respiratory syncytial virus. This assay has been cleared by the [place] Food and Drug administration. The performance characteristics have been verified by the [facility]. Results must be considered in the clinical context, and a negative result does not rule out infection. Interpretive Data last revised 2023 Nasopharyngeal 12/08/2024 6: 52 PM CDT 12/08/2024 6:54 PM CDT Narrative [facility] ([place]) - 12/08/2024 7:44 PM CDT Is the Patient experiencing symptoms consistent with COVID?->Unknown Christopher Baca NP LAB MICROBIOLOGY - GENERAL ORDERABLES Final Result [place] BETANCUR ([place]) 1 [facility] [place] [address] * Streptococcus Group A PCR Throat (12/08/2024 6:52 PM CDT) Strep A DNA Not Detected Not Detected Comment: This test is performed using the [employer] Xpert Group A Streptococcal Assay. This is [...] - GENERAL ORDERABLES Final Result ISRAEL BETANCUR ([place]) 1 [facility] [place] [address] * Transfuse RBC (12/07/2024 1:36 PM CDT) Blood Sujit Back MD BLOOD TRANSFUSION ORDERABLES Final Result [place] BETANCUR ([place]) 1 [facility] [place] [address] * Prepare RBC: 1 Units (12/07/2024 10:36 AM CDT) Units requested 1 Units requested Ready ISRAEL BETANCUR ([place]) Unit Number [id number] Product code [id number] [facility] ([place]) Blood Expiration Date [id number] [facility] ([place]) Product Blood Type (for scanning) 9500 [facility] ([place]) Product Blood Type ONEG [facility] ([place]) Dispense Status DISPENSED [facility] ([place]) Blood 12/07/2024 10:3 6 AM CDT 12/07/2024 10:36 AM CDT Sujit Back MD BLOOD BANK PRODUCT ORDERABLE S Final Result [place]EL BETANCUR ([place]) 1 [facility] [place] [address] * (ABNORMAL) Iron profile w/ IBC (12/07/2024 9:47 AM CDT) Iron 19(L) 35 - 145 mcg/dL TIBC 373 250 - 400 mcg/dL [facility] ([place]) Transferrin saturation 5(L) 20 - 50 % [facility] ([place]) Blood 12/07/2024 9:47 AM CDT 12/07/2024 9:51 AM CDT Sujit Back MD LAB BLOOD ORDERABLES Final R esult [place] BETANCUR ([place]) 1 [facility] [place] [employer] [address] * ABO/Rh (12/07/2024 9:47 AM CDT) ABO/Rh O Negative Blood 12/07/2024 9:47 AM CDT 12/07/2024 9:51 AM CDT Narrative [facility] ([place]) - 12/07/2024 10:27 AM CDT Has the patient had Daratumumab or Isatuximab in the past 6 months?->Unknown Sujit Back MD LAB BLOOD BANK TEST ORDERABL ES Final Result [place]EL BETANCUR ([place]) 1 [facility] [place] [address] * Crossmatch (12/07/2024 9:47 AM CDT) Crossmatch Compatible [place]EL Burgos ([place]) Unit number for crossmatch [id number] [facility] Blood 12/07/2024 9:47 AM CDT 12/07/2024 9:51 AM CDT Sujit Back MD LAB BLOOD BANK TEST ORDERABL ES Final Result Performing Organization Address [facility] Co de Phone Number [facility] ([place]) [address] [place] [address] [place] [address] * Antibody screen (12/07/2024 9:47 AM CDT) Dorothy, indirect, Gel Interpretation Negative ABSC Blood 12/07/2024 9:47 AM CDT 12/07/2024 9:51 AM CDT Narrative [facility]) - 12/07/2024 10:27 AM CDT Has the patient had Daratumumab or Isatuximab in the past 6 months?->Unknown Sujit Back MD LAB BLOOD BANK TEST ORDERABL ES Final Result Performing Organization Address [facility] de Phone Number [facility]) [address] [place] [id number] * Troponin T high-sensitivity series (baseline, 2hr, 4hr, 6hr) (12/07/2024 9:06 AM CDT) Pathologist [facility] Trop T hs <6 <=14 ng/L Comment: Interpretive Data For further hscTnT resources including the diagnostic algorithm and an aid in interpretation, copy and paste this link: [email or web address].testcatalog.org/show/[email or web address] Current Interpretive Data last revised 2020. Blood 12/07/2024 9:06 AM CDT 12/07/2024 9:08 AM CDT Sujit Back MD LAB BLOOD ORDERABLES Final R esult Performing Organization Address City/[facility]/ZIP Co de Phone Number [place]EL BETANCUR ([place]) 1 [facility] [place] [address] * eGFR (12/07/2024 9:06 AM CDT) eGFR [...] ORDERABLES Final R esult Performing Organization Address City/[facility]/ZIP Co de Phone Number [place]EL BETANCUR ([place]) 1 [facility] [place] [address] * Differential, auto (12/07/2024 9:06 AM CDT) [...] 2017. Monocyte pct 11.0 % [facility] ([place]) Comment: Interpretive Data Percent cell count reference [...] LAB BLOOD ORDERABLES Final R esult ISRAEL GYPSY ([place]) 1 [facility] [place] [address] * (ABNORMAL) CBC with auto differential (12/07/2024 [...] ORDERABLES Final R esult Performing Organization Address City/[facility]/ZIP Co de Phone Number [facility] ([place]) 1 [facility] [place] [address] * Magnesium (12/07/2024 9:06 AM CDT) Magnesium 2.1 1.4 - 2.5 mg/dL Blood 12/07/2024 9:06 AM CDT 12/07/2024 9:08 AM CDT Sujit Back MD LAB BLOOD ORDERABLES Final R esult Performing Organization Address City/[facility] Co de Phone Number [facility] ([place]) 1 [facility] [place] [address] * (ABNORMAL) Comprehensive metabolic panel (12/07/2024 9:06 [...] - 45 Units/L [facility] ([place]) Blood 12/07/2024 9:06 AM CDT 12/07/2024 9:08 AM CDT Sujit Back MD LAB BLOOD ORDERABLES Final R esult [place] BETANCUR ([place]) 1 [facility] [place] [address] * ECG 12 lead (12/07/2024 8:46 AM CDT) 12/07/2024 8:46 AM CDT Narrative [facility] - 12/07/2024 6:09 PM CDT Vent Rate: 62 bpm RR Interval: 955 msec [place] Interval: 143 msec QRS Duration: 94 msec QT Interval: 452 msec QTC Interval: 458 msec P-R-T [place]: 38 - 9 - 29 degrees IMPRESSION: SINUS RHYTHM LOW QRS VOLTAGE IN PRECORDIAL LEADS [QRS DEFLECTION < 1.0 mV IN CHEST LEADS] POSSIBLE RIGHT VENTRICULAR CONDUCTION DELAY [RSR (QR) IN V1/V2] prolonged QT intervall BORDERLINE ECG Compared to prior EKG, QT interval has increased Electronically Signed By: Ariel Lanier MD Sujit Back MD ECG ORDERABLES Final Result [facility] [employer] [facility] * Hepatitis C antibody Blood (11/13/2024 9:21 PM CDT) Hep C Ab Nonreactive Nonreactive Comment:Antibodies to HCV no t detected. Does NOT exclude the possibility of recent exposure to HCV. Current interpretive data was last revised on 22 Blood 11/13/2024 9:21 PM CDT 11/13/2024 9:35 PM CDT Jose Bell MD PhD LAB MICROBIOLOGY - GENERAL ORDERABLES Final Result [facility] Department [place] [address] from Last 3 Months or Most Recently Relevant to Health Maintenance Insurance [facility] MEDIC[facility] Address: [address] [address] [place] [address] [facility] MEDICARE [facility] Address: [address] [address] [place] [address] Advance Directives For more information, please contact: [phone] * Full Code (Latest Code Status on [...] 4:51 PM 11/12/2024 6:44 PM Care Teams Computer Laboratory Technician Relationship Specialty Start Date End Date Destiny Alfaro NP [address] [facility] [address] [place] [address] PCP - General Internal Medicine 11/05/24 Bushra Lyman MD [address] [place] [address] [place] [address] 08/01/18 Alexy Molina MD [address] [place] [address] DR VAL Sheffield [facility] [address] [facility] [address] [place] [address] Neurologist Neurology 09/01/18 [place] [id number] [facility] [address] [place] [address] Psychiatrist Psychiatry & Neurology 09/01/18 Dayne Aiken DO [address] [place] [address] Medical Oncologist/Sports Medicine [facility] 03/05/24 Carmelo Huang MD [address] [place] [address] [place] [address] Consulting Physician Neurology 02/21/25
--- OUTSIDE RECORDS SUMMARY | 2025-02-24 18:23 | XMS_ITS | Encounter Summary ---
Author Organization [facility] Healthcare Address [address] [place] [address] Care Team Providers Care Dolly Driver Name Role Phone Bushra Lyman MD Unavailable [phone] Alexy Molina MD Unavailable Henrik Qureshi MD Unavailable [phone] Dayne Aiken DO Unavailable Destiny Alfaro NP Primary Care Provider [phone] Carmelo Huang MD Unavailable [phone] Reason for Visit * Reason Onset Date Comments Palpitations 02/22/2025 Encounter Details Date Type Department Care Team (Late st Contact Info) Description 02/22/2025 Nurse Triage [facility] Medical Group Patient Access [address] [facility] [address] [place] [address] Laurie Blas RN Social History Tobacco Use Types Packs/Day Years Used Date Smoking Tobacco: Former Cigarettes 0.3 0 0 02/24/2024 - 03/04/2024 Vaping Passive Smoke Exposure: Current Smokeless Tobacco: Former Quit: 07/12/2018 Comments:pt states she quit e-cigs three weeks ago Alcohol Use Standard Drinks/Week Comments Not Currently 0 (1 standard drink = 0.6 oz pure alcohol) 1 a month, intake depends on mood [facility] Utilities Answer Date Recorded In [...] often do you attend chur ch or yazidism services? Patient unable to answer 02/19/2025 Do [...] Date Recorded PHQ-2 Total Score 2 11/14/2024 [facility] - Occupational Stress [...] or living in a fdc (including now)? 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 Released yesterday. Tonight calling because she feels like she is going thru detox again. Symptoms are nausea, vomiting, diarrhea, anxiety, palpatations, insomnia, difficulty walking (cannot keep her balance). Has felt this way since her release from hospital yesterday. S=PALPITATIONS/NAUSEA/VOMITING/DIARRHEA/UNSTEADY GAIT B=Patient calling with c/o continuous palpitations, nausea, vomiting, diarrhea, unsteady gait and anxiety. These are same symptoms she had on 02/15 when she was admitted to ICU for alcohol detox. Sounds to be in some distress, instructed to hang up and call 911. She verbalized understanding. A=DISPOSITION PER GUIDELINE=CALL EMS 911 NOW R-HOME CARE/SELF CARE INSTRUCTIONS=Verbalized understanding documented in this encounter Plan of Treatment Not on file documented as of this encounter Visit Diagnoses Not on filedocumented in this encounter Care Teams Dolly Driver Relationship Specialty Start Date End Date Destiny Alfaro NP [address] [facility] [address] [place] [address] PCP - General Internal Medicine 11/05/24 Bushra Lyman MD [address] [place] [address] [place] [address] 08/01/18 Alexy Molina MD [address] [place] [address] DR VAL Sheffield [facility] [address] [facility] [address] [place] [address] Neurologist Neurology 09/01/18 [place] [address] [facility] [address] [place] [address] Psychiatrist Psychiatry & Neurology 09/01/18 Dayne Aiken DO [address] [place] [address] Medical Oncologist/Web Merchant Hematology and Oncology 03/05/24 Carmelo Huang MD [address] [place] [address] [address] [place] [address] Consulting Physician Neurology 02/21/25 documented as of this encounter
[2025-02-24] MEDS: ONDANSETRON INJ 4 MG/2 ML VIAL (18:41)
--- NOTE | 2025-02-24 18:42 | ECG_ITS ---
Test Date: 2025-02-24 18:45:01 Measurements Intervals [place] Rate: 95 P: 48 GA: 163 QRS: -18 QRSD: 93 T: 8 QT: 360 QTc: 453 Interpretive Statements SINUS RHYTHM MODERATE VOLTAGE CRITERIA FOR LVH, CONSIDER NORMAL VARIANT [MEETS CRITERIA IN ONE OF: R(aVL), S(V1), R(V5), R(V5/V6)+S(V1)] No previous ECG available for comparison Electronically Signed On 02-25-2025 16:34:23 CDT by Mireya Tiwari M.D.
[2025-02-24 18:52] LABS: BEDSIDEPREGUCG Negative (Negative)
[2025-02-24] MEDS: LORazepam INJ (*CRX) 2 MG/ML VIAL (19:02)
[2025-02-24] MEDS: levETIRAcetam 1000MG/NACL100ML 1,000 MG/100 ML BAG 400 MG (19:03)
[2025-02-24] MEDS: LACTATED RINGERS 1,000 ML 999 ML IV CONT ×2 (19:11→21:04)
[2025-02-24 19:13] LABS: Add Urine Microscopic? YES; Appearance Urine Turbid (Clear); Glucose Urine UA Negative (Negative); Leukocyte Esterase Ur Trace LEU/UL (Negative); Need Manual Microscopic Reviewed; Nitrate Urine Negative (Negative); Specific Grav Ur 1.025 (1.001-1.035)
--- NOTE | 2025-02-24 19:19 | PC.NURSE ---
1857:while finishing pt IV pt asks to lay back in bed and states Im not feeling too good Pt states Im starting to see stars Pt then begins to stare and not responding to name when called. Pt then begins to shake and eyes and head deviating to the right. 1899: ativan given 1900: shaking stops
--- NOTE | 2025-02-24 19:21 | ED.GENADULT ---
HPI - General Adult General Chief complaint: Seizure Stated complaint: seizure Time Seen by Provider: 02/24/25 18:09 History of Present Illness HPI narrative: 29-year-old female with history of traumatic brain injury, seizure disorder, history of alcoholism presents emergency department for evaluation after having a seizure at road side. Patient reports she has been drinking more frequently. Patient reports her last alcohol was last night. Patient was found with her car on the side of the road and EMS was told patient had a seizure. Patient was mildly postictal but had no injuries to tongue. Patient was treated with Versed due to having a seizure with EMS. Patient reports she has not missed any of her medications Related Data Home Medications ?Medication ?Instructions ?Recorded ?Confirmed ?Last Taken ?Type apixaban 5 mg tablet (Eliquis) 5 mg PO Q12H 02/24/25 02/24/25 Unknown History aripiprazole 2 mg tablet 2 mg PO DAILY 02/24/25 02/24/25 Unknown History buspirone 30 mg tablet 30 mg PO BID 02/24/25 02/24/25 Unknown History clonazepam 0.5 mg tablet 0.5 mg PO PRN PRN panic attack(s) 02/24/25 02/24/25 Unknown History divalproex 125 mg capsule,delayed 125 mg PO TID 02/24/25 02/24/25 Unknown History release sprinkle divalproex 500 mg tablet,delayed 500 mg PO Q12H 02/24/25 02/24/25 Unknown History release levetiracetam 500 mg tablet 500 mg PO DAILY 02/24/25 02/24/25 Unknown History levothyroxine 50 mcg tablet 50 mcg PO DAILY 02/24/25 02/24/25 Unknown History losartan 50 mg tablet 50 mg PO DAILY 02/24/25 02/24/25 Unknown History pregabalin 150 mg capsule 150 mg PO Q12H 02/24/25 02/24/25 Unknown History sertraline 100 mg tablet 100 mg PO DAILY 02/24/25 02/24/25 Unknown History Allergies Allergy/AdvReac Type Severity Reaction Status Date / Time azithromycin Allergy Severe swelling Verified 02/24/25 18:28 codeine Allergy Severe swelling Verified 02/24/25 18:28 fexofenadine Allergy Intermediate hives Verified 02/24/25 18:28 hydrocodone Allergy Intermediate Hives Verified 02/24/25 18:28 lithium Allergy Intermediate Hives Verified 02/24/25 18:28 oxycodone (From Percocet) Allergy Intermediate Hives Verified 02/24/25 18:28 adhesive tape Allergy Mild Itching Verified 02/24/25 18:28 bupropion AdvReac Intermediate Nausea and Verified 02/24/25 18:28 Vomiting Review of Systems Review of Systems: All systems reviewed & are unremarkable except as noted in HPI and below PMFSH Past Medical History Medical History Anxiety Depression Pseudoseizures Seizure disorder Surgical History Surgical History History of gastric bypass Laparoscopic gastric bypass History of sleeve gastrectomy Laparoscopic. Prior to gastric bypass. 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 Gender identity (if verbalized by the patient): Female Spiritual care concerns: No Exam Narrative: APPEARANCE: Ill-appearing HEAD: normocephalic, atraumatic. EYES: PERRLA/EOMI, conjunctivae clear. NOSE: Normal no drainage EARS:TMS clear with good light reflex. THROAT: Pharynx clear, no exudate. NECK: Supple. No adenopathy, no masses. RESPIRATORY: Airway patent, respirations nonlabored. Clear to auscultation bilaterally, no rales, rhonchi, wheezing. CARDIOVASCULAR: Regular rate and rhythm without murmurs rubs or gallops. ABDOMINAL: Soft, nontender, nondistended, normal bowel sounds MUSCULOSKELETAL: Moves all extremities. Strength/ROM intact, No edema, No calf tenderness. NEURO: Alert. Cranial nerves II through XII intact. Good gait. Good coordination SKIN: Warm, dry. Normal Color Course Vital Signs Vital signs: Vital Signs Pulse Rate 115 H 02/24/25 18:01 Respiratory Rate 13 02/24/25 18:01 Blood Pressure 136/89 02/24/25 18:01 Pulse Oximetry 98 02/24/25 18:01 Oxygen Delivery Room Air 02/24/25 18:01 Pulse Rate 106 H 02/24/25 21:30 Respiratory Rate 18 02/24/25 21:30 Blood Pressure 120/82 02/24/25 21:30 Pulse Oximetry 99 02/24/25 21:30 Oxygen Delivery Room Air 02/24/25 19:05 Medical Decision Making MDM Narrative Medical decision making narrative: 29-year-old female presents to the emergency department for evaluation for multiple seizures today. Patient does have a history of traumatic brain injury and alcohol abuse. Patient has potentially been noncompliant with her anti epileptic medications during her recent alcohol binge. Patient's blood alcohol was elevated in the emergency department. Patient is unsure of the last time she took her medications. Patient's valproate level was undetectable. Patient did have seizure-like activity in the emergency department. This was possibly pseudo-seizure as the leg movement did not appear to be tonic clonic and patient did not have a significant postictal period afterwards. Patient was treated with 2 mg of IV Ativan for this seizure-like activity. Patient also received initially 1 g of IV Keppra additional 500 mg was added after discussing the case with Neurology. Was also treated with 500 mg of IV valproic acid. Patient was afebrile with no leukocytosis hemoglobin 11.0. Patient's INR is 1.3. Patient had no significant acute abnormalities on her CMP UA was potentially contaminated versus a urinary tract infection. Urine culture was ordered and patient was started on IV Rocephin. Patient was positive for barbiturates benzos and cannabinoids and patient's blood alcohol was 93. Neurology was consulted. Case was discussed with hospitalist patient was accepted for admission to the IMU. On re-evaluation patient is resting comfortably and has had no further seizure-like activity and is in no respiratory distress. Critical Care Procedure Note Authorized and Performed by: Ramez Munoz Total critical care time: Approximately 36 minutes Due to a high probability of clinically significant, life threatening deterioration, the patient required my highest level of preparedness to intervene emergently and I personally spent this critical care time directly and personally managing the patient. This critical care time included obtaining a history; examining the patient; pulse oximetry; ordering and review of studies; arranging urgent treatment with development of a management plan; evaluation of patient's response to treatment; frequent reassessment; and, discussions with other providers. This critical care time was performed to assess and manage the high probability of imminent, life-threatening deterioration that could result in multi-organ failure. It was exclusive of separately billable procedures and treating other patients and teaching time. Please see MDM section and the rest of the note for further information on patient assessment and treatment. Differential Diagnosis Differential Diagnosis: Medication noncompliance, subdural hematoma, subarachnoid hemorrhage, urinary tract infection, alcohol intoxication, alcohol withdrawal Vital Signs Vital Signs: Vital Signs Pulse Rate 115 H 02/24/25 18:01 Respiratory Rate 13 02/24/25 18:01 Blood Pressure 136/89 02/24/25 18:01 Pulse Oximetry 98 02/24/25 18:01 Oxygen Delivery Room Air 02/24/25 18:01 Pulse Rate 106 H 02/24/25 21:30 Respiratory Rate 18 02/24/25 21:30 Blood Pressure 120/82 02/24/25 21:30 Pulse Oximetry 99 02/24/25 21:30 Oxygen Delivery Room Air 02/24/25 19:05 Lab Data Lab results reviewed: Yes I reviewed the patient's lab results. 02/24/25 19:10 02/24/25 19:10 Labs: Lab Results 02/24/25 02/24/25 02/24/25 Range/Units 18:50 18:52 19:10 WBC 5.0 (4.5-10.0) K/mm3 RBC 4.28 (4.2-5.4) M/mm3 Hgb 11.0 L (12.0-15.0) g/dL Hct 35.0 L (37.0-47.0) % MCV 81.8 (80-100) fl MCH 25.7 L (26-34) pg MCHC 31.4 L (32-36) g/dl RDW 18.7 H (11.5-14.5) % Plt Count 245 (150-375) k/mm3 MPV 9.8 (7.4-10.4) fl Immature Gran % (Auto) 0.4 (0-0.5) % Neut % (Auto) 59.2 (45.5-73.1) % Lymph % (Auto) 20.2 (18.3-44.2) % Custer % (Auto) 17.4 H (2.6-8.5) % Eos % (Auto) 2.0 (0-4.4) % Baso % (Auto) 0.8 (0.2-1.2) % Lymph # (Auto) 1.01 (0.9-3.2) K/mm3 Custer # (Auto) 0.9 H (0.1-0.6) K/mm3 Eos # (Auto) 0.1 (0-0.3) K/mm3 Baso # (Auto) 0.0 (0.0-0.1) K/mm3 Abs Immat Gran (auto) 0.02 (0.00-0.031) K/mm3 Absolute Neuts (auto) 3.0 (1.3-6.7) K/mm3 Absolute Nucleated RBC 0.000 (0.0-0.012) K/mm3 Nucleated RBC % 0.0 (0.0-0.2) % PT 16.1 H (11.1-14.7) Seconds INR 1.3 APTT 27.1 (22.3-36.8) Seconds Sodium 140 (137-145) mmol/L Potassium 3.4 (3.4-5.0) mmol/L Chloride 106 (98-107) mmol/L Carbon Dioxide 19 L (22-30) mmol/L Anion Gap 15 H (4-12) mmol/L BUN 2 L D (7-17) mg/dL Creatinine 0.59 L (0.7-1.0) mg/dL Estim Creat Clear Calc 165 ml/min Estimated GFR > 60 (59 - ) Glucose 103 (65-110) mg/dL Calcium 9.0 (8.4-10.2) mg/dL Total Bilirubin 0.3 (0.2-1.3) mg/dL AST 45 H (14-36) U/L ALT 30 (6-35) U/L Alkaline Phosphatase 83 (38-126) U/L Total Protein 7.1 (6.3-8.2) g/dL Albumin 4.5 (3.5-5.1) g/dL Urine Color Dark yellow (Yellow) Urine Appearance Turbid H (Clear) Urine pH 5.5 (5.0-9.0) Ur Specific [place] 1.025 (1.001-1.035) Urine Protein 1+ H (Negative) mg/dL Urine Glucose (UA) Negative (Negative) mg/dL Urine Ketones Trace H (Negative) mg/dL Ur Blood (Man) Negative (Negative) Urine Nitrate Negative (Negative) Urine Bilirubin Negative (Negative) Urine Urobilinogen 1.0 (<2.0) mg/dL Add Ur Microanalysis Reviewed Leukocyte Esterase Rfl Trace H (Negative) SARAI/UL Urine RBC 3-5 H (0-2) /hpf Urine WBC 6-10 H (0-3) /hpf Ur Squamous Epith Cells Moderate (Few) /hpf Urine Bacteria 1+ H /hpf Urine Casts 3-5 POC Urine HCG, Qual Negative (Negative) Urine Opiates Screen Negative (Negative) Urine Methadone Screen Negative (Negative) Ur Barbiturates Screen Positive A (Negative) Valproic Acid (50-120) ug/mL Lamotrigine Levetiracetam Ur Phencyclidine Scrn Negative (Negative) Ur Amphetamine Screen Negative (Negative) U Benzodiazepines Scrn Positive A (Negative) Urine Cocaine Screen Negative (Negative) U Cannabinoids Screen Positive A (Negative) Ethyl Alcohol 93 (<10) mg/dL 02/24/25 Range/Units 20:33 WBC (4.5-10.0) K/mm3 RBC (4.2-5.4) M/mm3 Hgb (12.0-15.0) g/dL Hct (37.0-47.0) % MCV (80-100) fl MCH (26-34) pg MCHC (32-36) g/dl RDW (11.5-14.5) % Plt Count (150-375) k/mm3 MPV (7.4-10.4) fl Immature Gran % (Auto) (0-0.5) % Neut % (Auto) (45.5-73.1) % Lymph % (Auto) (18.3-44.2) % Custer % (Auto) (2.6-8.5) % Eos % (Auto) (0-4.4) % Baso % (Auto) (0.2-1.2) % Lymph # (Auto) (0.9-3.2) K/mm3 Custer # (Auto) (0.1-0.6) K/mm3 Eos # (Auto) (0-0.3) K/mm3 Baso # (Auto) (0.0-0.1) K/mm3 Abs Immat Gran (auto) (0.00-0.031) K/mm3 Absolute Neuts (auto) (1.3-6.7) K/mm3 Absolute Nucleated RBC (0.0-0.012) K/mm3 Nucleated RBC % (0.0-0.2) % PT (11.1-14.7) Seconds INR APTT (22.3-36.8) Seconds Sodium (137-145) mmol/L Potassium (3.4-5.0) mmol/L Chloride (98-107) mmol/L Carbon Dioxide (22-30) mmol/L Anion Gap (4-12) mmol/L BUN (7-17) mg/dL Creatinine (0.7-1.0) mg/dL Estim Creat Clear Calc ml/min Estimated GFR (59 - ) Glucose (65-110) mg/dL Calcium (8.4-10.2) mg/dL Total Bilirubin (0.2-1.3) mg/dL AST (14-36) U/L ALT (6-35) U/L Alkaline Phosphatase (38-126) U/L Total Protein (6.3-8.2) g/dL Albumin (3.5-5.1) g/dL Urine Color (Yellow) Urine Appearance (Clear) Urine pH (5.0-9.0) Ur Specific [place] (1.001-1.035) Urine Protein (Negative) mg/dL Urine Glucose (UA) (Negative) mg/dL Urine Ketones (Negative) mg/dL Ur Blood (Man) (Negative) Urine Nitrate (Negative) Urine Bilirubin (Negative) Urine Urobilinogen (<2.0) mg/dL Add Ur Microanalysis Leukocyte Esterase Rfl (Negative) SARAI/UL Urine RBC (0-2) /hpf Urine WBC (0-3) /hpf Ur Squamous Epith Cells (Few) /hpf Urine Bacteria /hpf Urine Casts POC Urine HCG, Qual (Negative) Urine Opiates Screen (Negative) Urine Methadone Screen (Negative) Ur Barbiturates Screen (Negative) Valproic Acid < 10.0 L (50-120) ug/mL Lamotrigine Pending Levetiracetam Pending Ur Phencyclidine Scrn (Negative) Ur Amphetamine Screen (Negative) U Benzodiazepines Scrn (Negative) Urine Cocaine Screen (Negative) U Cannabinoids Screen (Negative) Ethyl Alcohol (<10) mg/dL Imaging Data Radiologist's impression: Impressions Head CT 02/24/25 19:31 IMPRESSION: No acute intracranial process. Critical Care Time Critical Care Time Critical Care Time: Yes Total Critical Care Time: 36 Discharge Plan Discharge Clinical Impression: Seizure disorder, Urinary tract infection, Alcohol intoxication, Head injury Nausea & vomiting Qualifiers: Vomiting type: unspecified Qualified Code(s): R11.2 - Nausea with vomiting, unspecified Patient Disposition: Still a Patient Condition: Serious
[2025-02-24 19:22] LABS: Hematocrit 35.0 % (37.0-47.0); Hemoglobin 11.0 g/dL (12.0-15.0); Immature Granulocyte Percent A 0.4 % (0-0.5); Lymphocytes Absolute Auto 1.01 K/mm3 (0.9-3.2); Mean Corpuscular HGB Conc 31.4 g/dl (32-36); Mean Corpuscular Hemoglobin 25.7 pg (26-34); Mean Corpuscular Volume 81.8 fl (80-100); Nucleated Red Blood Cells Absolute Auto 0.000 K/mm3 (0.0-0.012); Nucleated Red Blood Cells Perc 0.0 % (0.0-0.2); Platelet Count Result 245 k/mm3 (150-375); Red Blood Count 4.28 M/mm3 (4.2-5.4); White Blood Count 5.0 K/mm3 (4.5-10.0)
[2025-02-24 19:32] LABS: INR 1.3; Prothrombin Time 16.1 Seconds (11.1-14.7)
[2025-02-24 19:33] LABS: Partial Thromboplastin Time 27.1 Seconds (22.3-36.8)
[2025-02-24 19:34] LABS: Cannabinoid Screen Urine Positive (Negative)
[2025-02-24 19:42] LABS: Alanine Aminotransferase 30 U/L (6-35); Albumin Level 4.5 g/dL (3.5-5.1); Alkaline Phosphatase 83 U/L (38-126); Anion Gap 15 mmol/L (4-12); Aspartate Amino Transferase 45 U/L (14-36); Bilirubin,Total 0.3 mg/dL (0.2-1.3); Blood Urea Nitrogen 2 mg/dL (7-17); Calcium 9.0 mg/dL (8.4-10.2); Carbon Dioxide 19 mmol/L (22-30); Chloride 106 mmol/L (98-107); Estimated CRCL calculation 165 ml/min; Estimated Glomerular Filt Rate > 60; Glucose 103 mg/dL (65-110); Potassium 3.4 mmol/L (3.4-5.0); Sodium 140 mmol/L (137-145); Total Protein 7.1 g/dL (6.3-8.2)
[2025-02-24] MEDS: ONDANSETRON INJ 4 MG/2 ML VIAL IV PUSH ×2 (20:12→22:23)
[2025-02-24] MEDS: KETOROLAC 15 MG/ML VIAL (*BKC) IV PUSH (21:05)
--- NOTE | 2025-02-24 21:15 | PC.NURSE ---
pt requesting MD Babar notified. no new orders at this time.
[2025-02-24] MEDS: levETIRAcetam 500MG/NACL 100ML 500 MG/100 ML BAG 400 MG IVPB (21:44)
[2025-02-24] MEDS: cefTRIAXone 1 GM in SODIUM CHLORIDE 0.9% IV 50 ML 100 ML IVPB (21:44)
[2025-02-24] MEDS: VALPROATE SODIUM INJ 500 MG in DEXTROSE 5% IN WATER 50 ML 55 MG IVPB (21:58)
[2025-02-24] MEDS: LORazepam INJ (*CRX) 2 MG/ML VIAL 1 MG IV PUSH (22:23)
[2025-02-24] MEDS: THIAMINE 500 MG/NS 100 ML 500 MG/100 ML BAG 200 MG IVPB (22:26)
[2025-02-25] VITALS (33 sets, daily range): BP systolic 103–141; BP diastolic 52–93; PULSE 55–99; RESP 16–20; TEMP 35.9–37.6; O2SAT 98–100; BMI 50.1
[2025-02-25] MEDS: LORazepam (*CRX) 1 MG TABLET 2 MG PO (01:00)
[2025-02-25] MEDS: chlordiazePOXIDE (*CRX) 25 MG CAPSULE 50 MG PO (01:01)
[2025-02-25] MEDS: PROMETHAZINE HCL 25 MG/ML AMPUL IM (03:02)
[2025-02-25] MEDS: diazePAM INJ (*CRX) 10 MG/2 ML SYRINGE IM (03:02)
--- NOTE | 2025-02-25 03:17 | P.HP_ITS ---
H&P: HPI History of Present Illness Date/Time: 02/25/25 03:17 Chief Complaint: Seizure Narrative: 29-year-old female with a past medical history of morbid obesity status post gastric sleeve followed by revision to gastric bypass with recurrent obesity, chronic alcohol abuse, IV drug abuse including opiates, edible THC, traumatic brain injury, seizure disorder, history of pseudoseizures anxiety and depression who presented to the ER after police found the patient having seizures in her car. By the time EMS arrived at the patient's vehicle the patient was no longer seizing but once they loaded her into the ambulance she did have 8 seizure. She had IM Versed administered because they had difficulty time obtaining IV access. The patient had a fall 2 days ago and had evidence of ecchymosis around her left eye. She went to [place] at that time and had a CT which was reportedly negative. At the time of that fall she did have some bleeding from her nose in her left ear. She drinks a handle of fire ball a night. She has drink heavily for about 8 years with extremely heavy alcohol use over the last 2 years. She had denied any drug use to the ER staff but had told me that she was taking a synthetic drug is similar to heroin. She reports she has not used marijuana gummies in about 2 weeks. The patient denies any preceding symptoms instigating her seizure. She reports that she has been compliant with her seizure medications and has not missed any. Her last drink of alcohol was on the morning of the . She does state that she has been having nausea vomiting for 3 or 4 days and has not been able to tolerate any food. She denies any hematochezia or melena. She has been having watery stools multiple times a day. She reports that her stools have been yellow to green in color and are straight water. She denies recent antibiotic use. She denies fevers or chills. She reports that is not unusual for her to have watery stools when she is drinking heavily. She denies any chest pain or shortness of breath. He denies any headache beyond what would be expected given her fall and head trauma from a few days ago. In the IMU patient initially had a seizure lasting about 5 minutes. The patient had lost her IV access. Subsequently 10 mg of IV diazepam was administered. I already ordered Librium and Ativan. The patient had been receiving oral Ativan for CIWA scores. The patient was still having some nausea vomiting. She did receive dose of Phenergan. She was requesting doses of Benadryl to treat her nausea at the time of my evaluation. I did give permission for nursing staff to place an IV in the patient's foot given limited IV access. And an order was placed for a midline catheter. Given that she does report received Phenergan I held off on this. The patient only had about a 32nd postictal. After the seizure-like activity in the IMU. The patient had been loaded on Keppra in the ER as well as Depakote. Neurology had been consulted. Around 550 in the morning nursing staff noticed ectopy in the patient's telemetry went in to evaluate the patient. The patient was actively seizing. I gave an order for 4 mg of IV Ativan. I got to patient's bedside as the 4 mg of Ativan was being administered. The patient continued disease a 2nd dose of 4 mg of Ativan was administered. At that time the patient had been seizing for 8-10 minutes. The decision was made to transfer the patient to the ICU and intubate. Patient received IV push Versed 6 mg The patient received propofol RSI. The patient initially received 2 milligrams/kilogram dose but was still continuing to have seizures. An additional 1 milligram/kilogram dose was administered and as the 2nd dose was completed the patient briefly stopped seizing. The patient was subsequently intubated without complication. Given poor vascular access central line was also placed. While seizing the patient was having bouts of emesis in car was used for suctioning. At the time of intubation there was no evidence of overt aspiration into the posterior oropharynx. Review of Systems 2 Review of Systems: 12 systems were reviewed with pertinent positives and negatives per HPI. Except as documented in the HPI, all other systems were reviewed and are negative. [facility] Past Medical History Medical History (Updated 02/25/25 @ 08:46 by Quin Burden DO) Traumatic brain injury PTSD (post-traumatic stress disorder) Hypothyroidism Kidney stones Pulmonary embolism (2023) Essential hypertension Migraines Gastric ulcer At anastomosis site of prior sleeve gastrectomy noted on EGD 01/10/2020 Morbid obesity with BMI of 50.0-59.9, adult The patient is weight pre bypass surgery was approximately 430 lb she reports she got down to around 200 lb but has had regain of weight back up to 300 Pseudoseizures Anxiety Depression Seizure disorder Surgical History Surgical History (Updated 02/25/25 @ 08:28 by Quin Burden DO) History of removal of Port-a-Cath Evidence by scarring in the right upper chest History of esophagogastroduodenoscopy (EGD) 01/10/2020 History of laparoscopic cholecystectomy (01/2020) History of tonsillectomy (2012) History of gastric bypass Laparoscopic gastric bypass History of sleeve gastrectomy Laparoscopic. Prior to gastric bypass. Family History Family History Mother Gallbladder disease Grandparent Gallbladder disease Diabetes mellitus Father Gallbladder disease Hypertension Sibling Gallbladder disease Social History Social History (Updated 02/25/25 @ 08:22 by Quin Burden DO) Social History: The patient reports that she has drink heavily for 8 years. She has currently been drinking 750 mL of hard liquor a day for the last couple of years. She has a history of opiate abuse. She states that she has not been using opiates recently but has been using a synthetic opiate. She states that she smokes 3-4 cigarettes a day and constantly vapes all day every day. She has smoked since she was 15. She does use edible marijuana. Code status: Full code Smoking status: Current every day smoker Tobacco type: cigarettes and e-cigarettes/vaping Second hand tobacco smoke exposure: Yes Additional smoking assessment comments: patient vapes Alcohol intake: current Drinks per week: 40 Alcohol use details: 1 handle a day fire ball Substance use: former Substance use type: opiates Last use: 12/20/2023 Do You Feel Safe in your Home?: Yes Lack of Transportation: No Lack of Food: Never True Current Housing: I Have Housing Concerned About Future Housing: YES Difficulty Paying Gas/Electric Bills: No Difficulty Paying for Meds: YES Currently Unemployed: YES Education: High School Diploma/GED Difficulty w/ Childcare or Family Care: No Living arrangements: with family Occupation/Education: occupation 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 Gender identity (if verbalized by the patient): Female Spiritual care concerns: No Meds Home Medications and Allergies Home Medications ?Medication ?Instructions ?Recorded ?Confirmed ?Type albuterol sulfate 90 mcg/actuation 1 puff inhalation Q4H PRN 02/24/25 02/24/25 History aerosol inhaler shortness of breath or wheezing apixaban 5 mg tablet (Eliquis) 5 mg PO Q12H 02/24/25 02/24/25 History aripiprazole 2 mg tablet 2 mg PO DAILY 02/24/25 02/24/25 History budesonide 160 mcg-glycopyr 9 2 inh inhalation .Q12HR 02/24/25 02/24/25 History mcg-formot 4.8 mcg/actuation HFA inhaler (Breztri Aerosphere) clonazepam 0.5 mg tablet 0.5 mg PO PRN PRN panic attack(s) 02/24/25 02/24/25 History cyclobenzaprine 10 mg tablet 10 mg PO Q8H PRN muscle spasm 02/24/25 02/24/25 History divalproex 125 mg capsule,delayed 125 mg PO TID 02/24/25 02/24/25 History release sprinkle divalproex 500 mg tablet,delayed 500 mg PO Q12H 02/24/25 02/24/25 History release levetiracetam 500 mg tablet 500 mg PO DAILY 02/24/25 02/24/25 History levothyroxine 50 mcg tablet 50 mcg PO DAILY 02/24/25 02/24/25 History losartan 50 mg tablet 50 mg PO DAILY 02/24/25 02/24/25 History ondansetron 4 mg disintegrating 4 mg PO Q4H PRN nausea and vomiting 02/24/25 02/24/25 History tablet quetiapine 50 mg tablet 50 mg PO HS 02/24/25 02/24/25 History sertraline 100 mg tablet 100 mg PO DAILY 02/24/25 02/24/25 History Allergies Allergy/AdvReac Type Severity Reaction Status Date / Time azithromycin Allergy Severe swelling Verified 02/24/25 18:28 codeine Allergy Severe swelling Verified 02/24/25 18:28 fexofenadine Allergy Intermediate hives Verified 02/24/25 18:28 hydrocodone Allergy Intermediate Hives Verified 02/24/25 18:28 lithium Allergy Intermediate Hives Verified 02/24/25 18:28 oxycodone (From Percocet) Allergy Intermediate Hives Verified 02/24/25 18:28 adhesive tape Allergy Mild Itching Verified 02/24/25 18:28 bupropion AdvReac Intermediate Nausea and Verified 02/24/25 18:28 Vomiting Vital Signs Vital Signs - 24 hr 02/24/25 18:01 02/24/25 18:13 02/24/25 18:17 Temperature Pulse Rate 115 H 103 H Pulse Rate [Monitor] Respiratory Rate 13 Blood Pressure 136/89 Pulse Oximetry 98 97 Oxygen Delivery Room Air Room Air 02/24/25 18:17 02/24/25 18:17 02/24/25 19:05 Temperature Pulse Rate 103 H 103 H Pulse Rate [Monitor] Respiratory Rate 17 18 Blood Pressure 128/77 128/77 Pulse Oximetry 97 96 Oxygen Delivery Room Air 02/24/25 20:01 02/24/25 21:30 02/24/25 22:30 Temperature Pulse Rate 109 H 106 H 107 H Pulse Rate [Monitor] Respiratory Rate 22 H 18 13 Blood Pressure 107/76 120/82 116/75 Pulse Oximetry 99 99 99 Oxygen Delivery 02/24/25 23:00 02/25/25 00:00 02/25/25 02:36 Temperature 97.9 F Pulse Rate 103 H 93 Pulse Rate [Monitor] 81 Respiratory Rate 18 Blood Pressure 135/75 Pulse Oximetry 99 Oxygen Delivery 02/25/25 03:03 Temperature Pulse Rate 76 Pulse Rate [Monitor] Respiratory Rate 16 Blood Pressure 141/81 H Pulse Oximetry 100 Oxygen Delivery Exam 2 Narrative: Weight 136.5 kg BMI 50.1 Const: Other: Acutely ill-appearing, appears older than stated age, morbidly obese HENMT: Other: Mucous membranes are dry, crowded posterior oropharynx, no oral pharyngeal erythema Eyes: Other: Pupils are equal but constricted, no scleral icterus, no conjunctival pallor, extra movements intact Neck: Other: Large neck circumference, no lymphadenopathy Resp: Other: Clear to auscultation bilaterally, no increased work of breathing Cardio: Other: Sinus tachycardia, 2+ bilateral radial pedal pulses, no murmur GI: Other: Obese, generalized tenderness palpation, soft, normoactive bowel sounds Skin: Other: Warm to touch, diaphoretic, tattoo left medial forearm Neuro: Other: Alert orient x4, speech is clear, no facial asymmetry H&P: Results Labs Labs: Laboratory Tests 02/24/25 19:10 02/24/25 19:10 02/24/25 02/24/25 02/24/25 18:50 18:52 19:10 WBC 5.0 RBC 4.28 Hgb 11.0 L Hct 35.0 L MCV 81.8 MCH 25.7 L MCHC 31.4 L RDW 18.7 H Plt Count 245 MPV 9.8 Immature Gran % (Auto) 0.4 Neut % (Auto) 59.2 Lymph % (Auto) 20.2 Rains % (Auto) 17.4 H Eos % (Auto) 2.0 Baso % (Auto) 0.8 Lymph # (Auto) 1.01 Rains # (Auto) 0.9 H Eos # (Auto) 0.1 Baso # (Auto) 0.0 Abs Immat Gran (auto) 0.02 Absolute Neuts (auto) 3.0 Absolute Nucleated RBC 0.000 Nucleated RBC % 0.0 PT 16.1 H INR 1.3 APTT 27.1 Puncture Site ABG pH ABG pCO2 ABG pO2 ABG PO2/FiO2 Ratio ABG HCO3 ABG O2 Saturation ABG O2 Content ABG Base Excess A-a Gradient Oxyhemoglobin Total Hemoglobin O2 Delivery Device O2 Liters/Min Minute Volume Vent Rate Vent Mode FiO2 Tidal Volume PEEP Peak Inspir Pressure Pressure Support Sodium 140 Potassium 3.4 Chloride 106 Carbon Dioxide 19 L Anion Gap 15 H BUN 2 L D Creatinine 0.59 L Estim Creat Clear Calc 165 Estimated GFR > 60 Glucose 103 POC Capillary Glucose Lactic Acid Calcium 9.0 Total Bilirubin 0.3 AST 45 H ALT 30 Alkaline Phosphatase 83 Total Protein 7.1 Albumin 4.5 Urine Color Dark yellow Urine Appearance Turbid H Urine pH 5.5 Ur Specific [place] 1.025 Urine Protein 1+ H Urine Glucose (UA) Negative Urine Ketones Trace H Ur Blood (Man) Negative Urine Nitrate Negative Urine Bilirubin Negative Urine Urobilinogen 1.0 Add Ur Microanalysis Reviewed Leukocyte Esterase Rfl Trace H Urine RBC 3-5 H Urine WBC 6-10 H Ur Squamous Epith Cells Moderate Urine Bacteria 1+ H Urine Casts 3-5 POC Urine HCG, Qual Negative Urine Opiates Screen Negative Urine Methadone Screen Negative Ur Barbiturates Screen Positive A Valproic Acid Lamotrigine Levetiracetam Ur Phencyclidine Scrn Negative Ur Amphetamine Screen Negative U Benzodiazepines Scrn Positive A Urine Cocaine Screen Negative U Cannabinoids Screen Positive A Ethyl Alcohol 93 02/24/25 02/24/25 02/24/25 20:33 22:03 22:47 WBC RBC Hgb Hct MCV MCH MCHC RDW Plt Count MPV Immature Gran % (Auto) Neut % (Auto) Lymph % (Auto) Rains % (Auto) Eos % (Auto) Baso % (Auto) Lymph # (Auto) Rains # (Auto) Eos # (Auto) Baso # (Auto) Abs Immat Gran (auto) Absolute Neuts (auto) Absolute Nucleated RBC Nucleated RBC % PT INR APTT Puncture Site ABG pH ABG pCO2 ABG pO2 ABG PO2/FiO2 Ratio ABG HCO3 ABG O2 Saturation ABG O2 Content ABG Base Excess A-a Gradient Oxyhemoglobin Total Hemoglobin O2 Delivery Device O2 Liters/Min Minute Volume Vent Rate Vent Mode FiO2 Tidal Volume PEEP Peak Inspir Pressure Pressure Support Sodium Potassium Chloride Carbon Dioxide Anion Gap BUN Creatinine Estim Creat Clear Calc Estimated GFR Glucose POC Capillary Glucose 94 Lactic Acid 3.0 H Calcium Total Bilirubin AST ALT Alkaline Phosphatase Total Protein Albumin Urine Color Urine Appearance Urine pH Ur Specific [place] Urine Protein Urine Glucose (UA) Urine Ketones Ur Blood (Man) Urine Nitrate Urine Bilirubin Urine Urobilinogen Add Ur Microanalysis Leukocyte Esterase Rfl Urine RBC Urine WBC Ur Squamous Epith Cells Urine Bacteria Urine Casts POC Urine HCG, Qual Urine Opiates Screen Urine Methadone Screen Ur Barbiturates Screen Valproic Acid < 10.0 L Lamotrigine Pending Levetiracetam Pending Ur Phencyclidine Scrn Ur Amphetamine Screen U Benzodiazepines Scrn Urine Cocaine Screen U Cannabinoids Screen Ethyl Alcohol 02/25/25 02/25/25 02/25/25 00:42 02:15 08:06 WBC RBC Hgb Hct MCV MCH MCHC RDW Plt Count MPV Immature Gran % (Auto) Neut % (Auto) Lymph % (Auto) Rains % (Auto) Eos % (Auto) Baso % (Auto) Lymph # (Auto) Rains # (Auto) Eos # (Auto) Baso # (Auto) Abs Immat Gran (auto) Absolute Neuts (auto) Absolute Nucleated RBC Nucleated RBC % PT INR APTT Puncture Site Left radial ABG pH 7.361 ABG pCO2 46.6 H ABG pO2 332.0 H ABG PO2/FiO2 Ratio 3.69 ABG HCO3 25.8 ABG O2 Saturation 99.7 ABG O2 Content 15.4 L ABG Base Excess 0.1 A-a Gradient 261.9 Oxyhemoglobin 99.2 Total Hemoglobin 10.4 L O2 Delivery Device Ventilator O2 Liters/Min Not Reportable Minute Volume Not Reportable Vent Rate 18 Vent Mode Cmv FiO2 90 Tidal Volume 400 PEEP 5 Peak Inspir Pressure Not Reportable Pressure Support Not Reportable Sodium Potassium Chloride Carbon Dioxide Anion Gap BUN Creatinine Estim Creat Clear Calc Estimated GFR Glucose POC Capillary Glucose 87 Lactic Acid 2.6 H Calcium Total Bilirubin AST ALT Alkaline Phosphatase Total Protein Albumin Urine Color Urine Appearance Urine pH Ur Specific [place] Urine Protein Urine Glucose (UA) Urine Ketones Ur Blood (Man) Urine Nitrate Urine Bilirubin Urine Urobilinogen Add Ur Microanalysis Leukocyte Esterase Rfl Urine RBC Urine WBC Ur Squamous Epith Cells Urine Bacteria Urine Casts POC Urine HCG, Qual Urine Opiates Screen Urine Methadone Screen Ur Barbiturates Screen Valproic Acid Lamotrigine Levetiracetam Ur Phencyclidine Scrn Ur Amphetamine Screen U Benzodiazepines Scrn Urine Cocaine Screen U Cannabinoids Screen Ethyl Alcohol Laboratory Tests 02/24/25 19:10 02/24/25 19:10 02/24/25 02/24/25 02/24/25 18:50 18:52 19:10 WBC 5.0 RBC 4.28 Hgb 11.0 L Hct 35.0 L MCV 81.8 MCH 25.7 L MCHC 31.4 L RDW 18.7 H Plt Count 245 MPV 9.8 Immature Gran % (Auto) 0.4 Neut % (Auto) 59.2 Lymph % (Auto) 20.2 Rains % (Auto) 17.4 H Eos % (Auto) 2.0 Baso % (Auto) 0.8 Lymph # (Auto) 1.01 Rains # (Auto) 0.9 H Eos # (Auto) 0.1 Baso # (Auto) 0.0 Abs Immat Gran (auto) 0.02 Absolute Neuts (auto) 3.0 Absolute Nucleated RBC 0.000 Nucleated RBC % 0.0 PT 16.1 H INR 1.3 APTT 27.1 Puncture Site ABG pH ABG pCO2 ABG pO2 ABG PO2/FiO2 Ratio ABG HCO3 ABG O2 Saturation ABG O2 Content ABG Base Excess A-a Gradient Oxyhemoglobin Total Hemoglobin O2 Delivery Device O2 Liters/Min Minute Volume Vent Rate Vent Mode FiO2 Tidal Volume PEEP Peak Inspir Pressure Pressure Support Sodium 140 Potassium 3.4 Chloride 106 Carbon Dioxide 19 L Anion Gap 15 H BUN 2 L D Creatinine 0.59 L Estim Creat Clear Calc 165 Estimated GFR > 60 Glucose 103 POC Capillary Glucose Lactic Acid Calcium 9.0 Total Bilirubin 0.3 AST 45 H ALT 30 Alkaline Phosphatase 83 Total Protein 7.1 Albumin 4.5 Urine Color Dark yellow Urine Appearance Turbid H Urine pH 5.5 Ur Specific [place] 1.025 Urine Protein 1+ H Urine Glucose (UA) Negative Urine Ketones Trace H Ur Blood (Man) Negative Urine Nitrate Negative Urine Bilirubin Negative Urine Urobilinogen 1.0 Add Ur Microanalysis Reviewed Leukocyte Esterase Rfl Trace H Urine RBC 3-5 H Urine WBC 6-10 H Ur Squamous Epith Cells Moderate Urine Bacteria 1+ H Urine Casts 3-5 POC Urine HCG, Qual Negative Urine Opiates Screen Negative Urine Methadone Screen Negative Ur Barbiturates Screen Positive A Valproic Acid Lamotrigine Levetiracetam Ur Phencyclidine Scrn Negative Ur Amphetamine Screen Negative U Benzodiazepines Scrn Positive A Urine Cocaine Screen Negative U Cannabinoids Screen Positive A Ethyl Alcohol 93 02/24/25 02/24/25 02/24/25 20:33 22:03 22:47 WBC RBC Hgb Hct MCV MCH MCHC RDW Plt Count MPV Immature Gran % (Auto) Neut % (Auto) Lymph % (Auto) Rains % (Auto) Eos % (Auto) Baso % (Auto) Lymph # (Auto) Rains # (Auto) Eos # (Auto) Baso # (Auto) Abs Immat Gran (auto) Absolute Neuts (auto) Absolute Nucleated RBC Nucleated RBC % PT INR APTT Puncture Site ABG pH ABG pCO2 ABG pO2 ABG PO2/FiO2 Ratio ABG HCO3 ABG O2 Saturation ABG O2 Content ABG Base Excess A-a Gradient Oxyhemoglobin Total Hemoglobin O2 Delivery Device O2 Liters/Min Minute Volume Vent Rate Vent Mode FiO2 Tidal Volume PEEP Peak Inspir Pressure Pressure Support Sodium Potassium Chloride Carbon Dioxide Anion Gap BUN Creatinine Estim Creat Clear Calc Estimated GFR Glucose POC Capillary Glucose 94 Lactic Acid 3.0 H Calcium Total Bilirubin AST ALT Alkaline Phosphatase Total Protein Albumin Urine Color Urine Appearance Urine pH Ur Specific [place] Urine Protein Urine Glucose (UA) Urine Ketones Ur Blood (Man) Urine Nitrate Urine Bilirubin Urine Urobilinogen Add Ur Microanalysis Leukocyte Esterase Rfl Urine RBC Urine WBC Ur Squamous Epith Cells Urine Bacteria Urine Casts POC Urine HCG, Qual Urine Opiates Screen Urine Methadone Screen Ur Barbiturates Screen Valproic Acid < 10.0 L Lamotrigine Pending Levetiracetam Pending Ur Phencyclidine Scrn Ur Amphetamine Screen U Benzodiazepines Scrn Urine Cocaine Screen U Cannabinoids Screen Ethyl Alcohol 02/25/25 02/25/25 02/25/25 00:42 02:15 08:06 WBC RBC Hgb Hct MCV MCH MCHC RDW Plt Count MPV Immature Gran % (Auto) Neut % (Auto) Lymph % (Auto) Rains % (Auto) Eos % (Auto) Baso % (Auto) Lymph # (Auto) Rains # (Auto) Eos # (Auto) Baso # (Auto) Abs Immat Gran (auto) Absolute Neuts (auto) Absolute Nucleated RBC Nucleated RBC % PT INR APTT Puncture Site Left radial ABG pH 7.361 ABG pCO2 46.6 H ABG pO2 332.0 H ABG PO2/FiO2 Ratio 3.69 ABG HCO3 25.8 ABG O2 Saturation 99.7 ABG O2 Content 15.4 L ABG Base Excess 0.1 A-a Gradient 261.9 Oxyhemoglobin 99.2 Total Hemoglobin 10.4 L O2 Delivery Device Ventilator O2 Liters/Min Not Reportable Minute Volume Not Reportable Vent Rate 18 Vent Mode Cmv FiO2 90 Tidal Volume 400 PEEP 5 Peak Inspir Pressure Not Reportable Pressure Support Not Reportable Sodium Potassium Chloride Carbon Dioxide Anion Gap BUN Creatinine Estim Creat Clear Calc Estimated GFR Glucose POC Capillary Glucose 87 Lactic Acid 2.6 H Calcium Total Bilirubin AST ALT Alkaline Phosphatase Total Protein Albumin Urine Color Urine Appearance Urine pH Ur Specific [place] Urine Protein Urine Glucose (UA) Urine Ketones Ur Blood (Man) Urine Nitrate Urine Bilirubin Urine Urobilinogen Add Ur Microanalysis Leukocyte Esterase Rfl Urine RBC Urine WBC Ur Squamous Epith Cells Urine Bacteria Urine Casts POC Urine HCG, Qual Urine Opiates Screen Urine Methadone Screen Ur Barbiturates Screen Valproic Acid Lamotrigine Levetiracetam Ur Phencyclidine Scrn Ur Amphetamine Screen U Benzodiazepines Scrn Urine Cocaine Screen U Cannabinoids Screen Ethyl Alcohol EKG: Sinus tachycardia of moderate voltage criteria for LVH QTC 453 cardiology interpretation pending Impressions Head CT 02/24/25 19:31 IMPRESSION: No acute intracranial process. Chest X-Ray 02/24/25 22:05 IMPRESSION: No acute cardiopulmonary process. Chest X-Ray 02/25/25 07:03 Impression: 1: Mild interstitial edema. Chest x-ray personally reviewed and interpreted. ET tube was 5 cm from the ernesto order was given to advance ET tube 1 cm. Central line was appropriately position. Okay given to use central line All imaging and EKGs personally reviewed and interpreted. And unless stated otherwise agree with radiologic and cardiology interpretation. Assessment and Plan Assessment and plan (1) Status epilepticus: Code(s): G40.901 - Epilepsy, unspecified, not intractable, with status epilepticus Status: Acute (2) Breakthrough seizure: Code(s): G40.919 - Epilepsy, unspecified, intractable, without status epilepticus Status: Acute (3) Alcohol withdrawal seizure: Qualifiers: Complication of substance-induced condition: uncomplicated Qualified Code(s): F10.930 - Alcohol use, unspecified with withdrawal, uncomplicated; R56.9 - Unspecified convulsions Code(s): F10.939 - Alcohol use, unspecified with withdrawal, unspecified; R56.9 - Unspecified convulsions Status: Acute (4) Acute hypoxic respiratory failure: Code(s): J96.01 - Acute respiratory failure with hypoxia Status: Acute (5) Alcohol intoxication: Qualifiers: Complication of substance-induced condition: uncomplicated Qualified Code(s): F10.920 - Alcohol use, unspecified with intoxication, uncomplicated Code(s): F10.929 - Alcohol use, unspecified with intoxication, unspecified Status: Acute (6) Head injury: Qualifiers: Encounter type: subsequent encounter Qualified Code(s): S09.90XD - Unspecified injury of head, subsequent encounter Code(s): S09.90XA - Unspecified injury of head, initial encounter Status: Acute (7) Opiate abuse, episodic: Code(s): F11.10 - Opioid abuse, uncomplicated Status: Acute (8) Nausea vomiting and diarrhea: Code(s): R11.2 - Nausea with vomiting, unspecified; R19.7 - Diarrhea, unspecified Status: Acute (9) Abnormal urinalysis: Code(s): R82.90 - Unspecified abnormal findings in urine Status: Acute Plan Status epilepticus likely multifactorial due to a combination of alcohol withdrawal and nonadherence to seizure medications. Patient did receive loading doses cap per and valproic acid per Neurology recommendations. The patient was admitted to IMU and placed on seizure precautions with frequent monitoring of CIWA scores with p.r.n. Ativan, Librium, Valium and frequent neuro checks. Despite multiple doses of benzodiazepines the patient had 2 recurrent seizures. The 2nd seizure was a prolonged seizure lasting total of 24 minutes. The patient was transferred from the IMU to the ICU and subsequently intubated for airway protection. Patient was placed on sedation with propofol and required brief use of paralytic therapy so that I could place central line. I requested patient receive another 1 g load of Keppra. Nursing staff called Neurology who also recommended same dose of Keppra and additional dosing of valproic acid. Ventilator settings initially provided with tidal volume 400 peep of 5 rate of 18 with plan for repeat ABG 30 minutes to 1 hour after intubation. Patient was intubated just prior to the end of my shift. Care was transitioned to the supervisor core drilling to follow-up on repeat imaging and labs. Neurology has been consulted and we are awaiting further recommendations EEG has been ordered.. Will continue sedation with propofol. I suspect that some of the patient's nausea vomiting and diarrhea and symptoms of withdrawal could also be due to opiate withdrawal. Our drug screen is not the best at picking up synthetic opiates and she does admit to using some opiate substitute. The patient required large doses of sedatives for sedation. Patient will require monitoring. Restraints have been applied. Will start the patient on Protonix 40 mg g IV q.12 hours. Will provide more frequent dosing for stress ulcer prophylaxis given the patient's prior history of gastric ulcers in the past. The patient received 2 L fluid bolus in the ER. Repeat x-ray suggest possible pulmonary edema but patient still appears intervascular volume depleted with dry mucous membranes. Patient also has lactic acidosis which is likely due to seizures. Will continue maintenance IV fluids. Will obtain blood cultures to rule out infectious cause. Patient's initial UA was also abnormal but had moderate squamous cells. The urine in the patient's Shine catheter appears milky and suspicious for possible infection. Will send repeat urine specimen for culture. Will repeat CBC, CMP and lactic acid. 90 minute spent in critical care activities. Due to a high probability of clinically significant, life threatening deterioration, the patient required my highest level of preparedness to intervene emergently and I personally spent this critical care time directly and personally managing the patient. This critical care time included obtaining a history; examining the patient; pulse oximetry; ordering and review of studies; arranging urgent treatment with development of a management plan; evaluation of patient's response to treatment; frequent reassessment; and discussions with other providers. It was exclusive of separately billable procedures and treating other patients and teaching time. Please see Assessment and Plan section and the rest of the note for further information on patient assessment and treatment. Quality VTE Prophylaxis VTE prophylaxis: pharmacologic ordered (Eliquis) Hospitalist [facility] Advance Care Plan I have confirmed that the patient's Advanced Care Plan is present, code status is documented, or surrogate decision maker is listed in patient medical record.: Yes Medication Reconciliation I have utilized all available resources to obtain, update and review the patients current medications (includes all prescriptions, OTC, herbals, cannabis, and nutritional supplements).: Yes
[2025-02-25] MEDS: LACTATED RINGERS 1,000 ML 150 ML IV CONT (04:19)
[2025-02-25] MEDS: LORazepam INJ (*CRX) 2 MG/ML VIAL 4 MG IV PUSH ×2 (05:59→07:02)
--- NOTE | 2025-02-25 06:10 | PC.NURSE ---
This patient, Preethi Napier, was transferred to ICU 6 on 02/25/25 at 0728 via bed with two nurses, one RT, and one tech and trasnfered safely. Personal belongings sent with patient. Report given to Migel GUERRERO. Appropriate documentation sent with patient.
[2025-02-25] MEDS: MIDAZOLAM HCL (*CRX) 2 MG/2 ML VIAL 6 MG IV PUSH (06:13)
[2025-02-25] MEDS: PROPOFOL IV EMULSION 200 MG/20 ML VIAL 260 MG IV PUSH (06:18)
--- NOTE | 2025-02-25 06:18 | PC.NURSE ---
Propofol pushed by Dr. Burden at 0618; myself and Jovita Pagan RN at bedside.
[2025-02-25] MEDS: PROPOFOL IV EMULSION 200 MG/20 ML VIAL 140 MG IV PUSH (06:28)
--- NOTE | 2025-02-25 06:28 | PC.NURSE ---
Propofol pushed by Dr. Burden at 0628; Migel RN and Jovita GUERRERO at bedside.
[2025-02-25] MEDS: PROPOFOL IV EMULSION 100 ML 24.57 MG IV CONT ×4 (06:32→17:14)
[2025-02-25] MEDS: ROCURONIUM BROMIDE 50 MG/5 ML VIAL 100 MG IV PUSH (06:38)
--- NOTE | 2025-02-25 06:54 | PC.NURSE ---
IV propofol pushed by Dr. Bertram DO.
[2025-02-25] MEDS: DEXTROSE 5% IVPB (07:08)
[2025-02-25] MEDS: WATER IVPB (07:08)
[2025-02-25] MEDS: VALPROATE SODIUM IVPB (07:08)
[2025-02-25 08:08] LABS: Alveolar/Arterial O2 Gradient 261.9 mmHg; Fractional Inspired Oxygen 90 %; HCO3 ABG 25.8 mEq/l (22.0-26.0); Oxygen Content ABG 15.4 %vol (16.0-22.0); Oxygen Saturation ABG 99.7 % (95.0-100.0); PCO2 ABG 46.6 mmHg (35.0-45.0); PO2 ABG 332.0 mmHg (80.0-100.0); PO2 FiO2 Ratio Arterial Blood 3.69 %; Site Drawn LEFT RADIAL
[2025-02-25 08:09] LABS: Arterial Blood Gas Tidal Volume 400 ml; Arterial Blood Gas Ventilator rate 18 /MIN; Modified Allen's Test Pass
[2025-02-25] MEDS: THIAMINE HCL 200 MG/2 ML VIAL 100 MG IV PUSH (08:37)
[2025-02-25] MEDS: FOLIC ACID 1 MG/0.2 ML INJ IV PUSH (08:38)
[2025-02-25] MEDS: PANTOPRAZOLE SODIUM IV 40 MG VIAL IV PUSH ×2 (08:41→20:14)
[2025-02-25] MEDS: MINERAL OIL/WHITE PETROLATUM OINTMENT 1 APPLIC EACH EYE ×2 (08:41→20:19)
[2025-02-25] MEDS: LACTATED RINGERS 1,000 ML 75 ML IV CONT (08:49)
[2025-02-25] MEDS: levETIRAcetam 1000MG/NACL100ML 1,000 MG/100 ML BAG 400 MG IVPB ×2 (08:49→20:15)
--- NOTE | 2025-02-25 08:51 | WPDPROCEDUR ---
Procedures Central Line Placement Right IJ: Central Line Date: 02/25/25 Central Line Time: 06:33 Performed Emergently - Given emergent patient condition, temporal constraints may have precluded informed consent.: Yes Time Out Performed: Yes Patient Position: trendelenburg Patient placed on monitor/pulse ox: Yes Provider Prep: mask, sterile gown, sterile gloves, Max. sterile barrier precautions, cap and hand hygiene with conventional soap/water or alcohol based hand rub Central line prep: 2% Chlorhexidine scrub and sterile full body sheet applied Sterile US Technique with sterile gel/sterile probe covers: Yes Central line lumen inserted: triple Moldovan: 7 Length (cm): 16 Depth of Insertion (cm): 15 Post Procedure: sutured in place, good blood return, all ports aspirated, flushed, capped, transparent dressing, hemostatic product, antimicrobial product, securement product and aseptic technique maintained throughout procedure Post procedure x-ray: tip of catheter in good position and no pneumothorax seen Patient tolerated procedure: well Complications: hematoma at puncture site Intubation Intubation Date: 02/25/25 Intubation Time: 06:18 A pre-procedural Time-Out was completed immediately before starting the procedure and confirmed: Patient Identification, Site, Procedure, Patient Position and the Availability of Requisite Equipment: Yes Sedative: other (Propofol total 360 and Versed 6) Mg given: 6 Laryngoscope: fiber optic video scope ET tube size: 7.5 Tube secured depth (cm): 21 Tube secured location: teeth Tube placement confirmation: visualized tube passing through cords, equal breath sounds bilaterally, no breath sounds over epigastrium and confirmation by capnometry Patient tolerated procedure: well Additional comments: Patient initially received sedation with Versed 6 mg and 260 mg of propofol. The patient was still having active seizure activity. An additional 100 and 30 mg of propofol was administered with cessation of seizure activity. Patient was intubated during this interval. Intubation was uncomplicated. No evidence of gastric aspirate in airway. Oxygen saturations were maintained throughout. However shortly after intubation my was attempting to do the central line the patient did start having jerking movements requiring rocuronium administration 100 mg to safely perform IJ placement. Patient also was given the remainder of the propofol push.
[2025-02-25 09:09] LABS: Add Urine Microscopic? YES; Appearance Urine Turbid (Clear); Glucose Urine UA Negative (Negative); Leukocyte Esterase Ur Trace LEU/UL (Negative); Nitrate Urine Positive (Negative); Specific Grav Ur 1.029 (1.001-1.035)
--- NOTE | 2025-02-25 09:10 | P.CONNEU_ITS ---
Assessment and Plan Assessment and plan (1) Illicit drug use: Code(s): F19.90 - Other psychoactive substance use, unspecified, uncomplicated Status: Acute (2) Breakthrough seizure: Code(s): G40.919 - Epilepsy, unspecified, intractable, without status epilepticus Status: Acute (3) Acute hypoxic respiratory failure: Code(s): J96.01 - Acute respiratory failure with hypoxia Status: Acute (4) Coma after cardiorespiratory arrest: Code(s): R40.20 - Unspecified coma; I46.9 - Cardiac arrest, cause unspecified Status: Acute Plan 1 seizure disorder by history. When she was found by the police in the car 2. Acute respiratory failure with hypoxia requiring intubation, 3 history of chronic alcoholism 4. History of anxiety with depression. 5. Patient is covered with broad-spectrum antibiotic, receiving t 7.he valproate intravenously along with multiple vitamins time in supplement. 6. Continue the treatment as such and obtain the eeg to rule out that she is not having electrical status. She was documented to have low potassium but that has been supplemented intravenous, will continue the supportive treatment as such at this particular stage. Consult date: 02/25/25 HPI: Preethi Napier is a 29 year old female Admitted to the hospital through the emergency room with ongoing history of 1. Traumatic brain injury 2. Seizure disorder 3. History of alcoholism. As per the information available she was brought to the ER after having a seizure [place] roadside. She reported she has been drinking more frequently and her last alcohol was a night before coming to the ER. She was found with her car on the side of the road when EMS were told the patient has had a seizure. She was mildly postictal but had no obvious injuries to her tongue she was treated with Versed by EMS and brought to the emergency room. Her medications have been listed as apixaban 5mg q.12 hours, dairy pupils oval 2mg daily, BuSpar 30mg twice a day, clonazepam 0.5mg p.r.n., divalproex 125mg 3 times a day, levetiracetam 500mg daily, levothyroxine 50mcg daily, losartan 50mg daily, pregabalin 150mg q.12 hours, and sertraline 100mg daily, she has reportedly been allergic to multiple medications as outlined. She has ongoing history of anxiety with depression and pseudo seizure disorder as well and also she has undergone gastric bypass with sleeve gastrectomy. She is currently alcohol intake or. She lives with her family. On initial evaluation in the emergency room she was obviously ill appearing but was able to move all 4 extremities. Her vital signs were Normal except pulse rate 115. CBC was normal, BMP was abnormal, she was positive for barbiturates, benzodiazepine, and cannabinoids, CT scan of the head was negative for the bleed, subsequently she was admitted to the hospital and while in IMU she had a seizure lasting for about 5minute, which was treated accordingly with Valium intravenously she was complaining of nausea and vomiting patient was loaded on Keppra in the ER also Depakote she had an another seizure when she received Versed and she was admitted to the intensive care. Her x-ray chest with mild interstitial edema, and CT head is negative as mentioned Before. She is still receiving apixaban, and all her other medications. Review of Systems 2 Review of Systems: All systems reviewed & are unremarkable except as noted in HPI and below PMFSH Past Medical History Medical History On mechanically assisted ventilation Traumatic brain injury PTSD (post-traumatic stress disorder) Hypothyroidism Kidney stones Pulmonary embolism (2023) Essential hypertension Migraines Gastric ulcer At anastomosis site of prior sleeve gastrectomy noted on EGD 01/10/2020 Morbid obesity with BMI of 50.0-59.9, adult The patient is weight pre bypass surgery was approximately 430 lb she reports she got down to around 200 lb but has had regain of weight back up to 300 Pseudoseizures Anxiety Depression Seizure disorder Surgical History Surgical History History of removal of Port-a-Cath Evidence by scarring in the right upper chest History of esophagogastroduodenoscopy (EGD) 01/10/2020 History of laparoscopic cholecystectomy (01/2020) History of tonsillectomy (2012) History of gastric bypass Laparoscopic gastric bypass History of sleeve gastrectomy Laparoscopic. Prior to gastric bypass. Family History Family History Mother Gallbladder disease Grandparent Gallbladder disease Diabetes mellitus Father Gallbladder disease Hypertension Sibling Gallbladder disease Social History Social History Social History: The patient reports that she has drink heavily for 8 years. She has currently been drinking 750 mL of hard liquor a day for the last couple of years. She has a history of opiate abuse. She states that she has not been using opiates recently but has been using a synthetic opiate. She states that she smokes 3-4 cigarettes a day and constantly vapes all day every day. She has smoked since she was 15. She does use edible marijuana. Code status: Full code Smoking status: Current every day smoker Tobacco type: cigarettes and e-cigarettes/vaping Second hand tobacco smoke exposure: Yes Additional smoking assessment comments: patient vapes Alcohol intake: current Drinks per week: 40 Alcohol use details: 1 handle a day fire ball Substance use: former Substance use type: opiates Last use: 12/20/2023 Do You Feel Safe in your Home?: Yes Lack of Transportation: No Lack of Food: Never True Current Housing: I Have Housing Concerned About Future Housing: YES Difficulty Paying Gas/Electric Bills: No Difficulty Paying for Meds: YES Currently Unemployed: YES Education: High School Diploma/GED Difficulty w/ Childcare or Family Care: No Living arrangements: with family Occupation/Education: occupation 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 Gender identity (if verbalized by the patient): Female Spiritual care concerns: No Meds Home Medications and Allergies Home Medications ?Medication ?Instructions ?Recorded ?Confirmed ?Type albuterol sulfate 90 mcg/actuation 1 puff inhalation Q4H PRN 02/24/25 02/24/25 History aerosol inhaler shortness of breath or wheezing apixaban 5 mg tablet (Eliquis) 5 mg PO Q12H 02/24/25 02/24/25 History aripiprazole 2 mg tablet 2 mg PO DAILY 02/24/25 02/24/25 History budesonide 160 mcg-glycopyr 9 2 inh inhalation .Q12HR 02/24/25 02/24/25 History mcg-formot 4.8 mcg/actuation HFA inhaler (Breztri Aerosphere) clonazepam 0.5 mg tablet 0.5 mg PO PRN PRN panic attack(s) 02/24/25 02/24/25 History cyclobenzaprine 10 mg tablet 10 mg PO Q8H PRN muscle spasm 02/24/25 02/24/25 History divalproex 125 mg capsule,delayed 125 mg PO TID 02/24/25 02/24/25 History release sprinkle divalproex 500 mg tablet,delayed 500 mg PO Q12H 02/24/25 02/24/25 History release levetiracetam 500 mg tablet 500 mg PO DAILY 02/24/25 02/24/25 History levothyroxine 50 mcg tablet 50 mcg PO DAILY 02/24/25 02/24/25 History losartan 50 mg tablet 50 mg PO DAILY 02/24/25 02/24/25 History ondansetron 4 mg disintegrating 4 mg PO Q4H PRN nausea and vomiting 02/24/25 02/24/25 History tablet quetiapine 50 mg tablet 50 mg PO HS 02/24/25 02/24/25 History sertraline 100 mg tablet 100 mg PO DAILY 02/24/25 02/24/25 History Allergies Allergy/AdvReac Type Severity Reaction Status Date / Time azithromycin Allergy Severe swelling Verified 02/24/25 18:28 codeine Allergy Severe swelling Verified 02/24/25 18:28 fexofenadine Allergy Intermediate hives Verified 02/24/25 18:28 hydrocodone Allergy Intermediate Hives Verified 02/24/25 18:28 lithium Allergy Intermediate Hives Verified 02/24/25 18:28 oxycodone (From Percocet) Allergy Intermediate Hives Verified 02/24/25 18:28 adhesive tape Allergy Mild Itching Verified 02/24/25 18:28 bupropion AdvReac Intermediate Nausea and Verified 02/24/25 18:28 Vomiting Vital Signs Vital Signs - 24 hr 02/24/25 18:01 02/24/25 18:13 02/24/25 18:17 Temperature Pulse Rate 115 H 103 H Pulse Rate [Monitor] Respiratory Rate 13 Blood Pressure 136/89 Pulse Oximetry 98 97 Oxygen Delivery Room Air Room Air Fraction of Inspired Oxygen 02/24/25 18:17 02/24/25 18:17 02/24/25 19:05 Temperature Pulse Rate 103 H 103 H Pulse Rate [Monitor] Respiratory Rate 17 18 Blood Pressure 128/77 128/77 Pulse Oximetry 97 96 Oxygen Delivery Room Air Fraction of Inspired Oxygen 02/24/25 20:01 02/24/25 21:30 02/24/25 22:30 Temperature Pulse Rate 109 H 106 H 107 H Pulse Rate [Monitor] Respiratory Rate 22 H 18 13 Blood Pressure 107/76 120/82 116/75 Pulse Oximetry 99 99 99 Oxygen Delivery Fraction of Inspired Oxygen 02/24/25 23:00 02/25/25 00:00 02/25/25 02:00 Temperature 36.6 C Pulse Rate 103 H 93 90 Pulse Rate [Monitor] Respiratory Rate 18 Blood Pressure 135/75 Pulse Oximetry 99 Oxygen Delivery Fraction of Inspired Oxygen 02/25/25 02:36 02/25/25 03:03 02/25/25 04:00 Temperature 37.6 C Pulse Rate 76 89 Pulse Rate [Monitor] 81 Respiratory Rate 16 20 Blood Pressure 141/81 H 127/67 Pulse Oximetry 100 98 Oxygen Delivery Fraction of Inspired Oxygen 02/25/25 04:00 02/25/25 06:32 02/25/25 06:32 Temperature Pulse Rate 85 99 94 Pulse Rate [Monitor] Respiratory Rate 18 Blood Pressure Pulse Oximetry 100 Oxygen Delivery Mechanical Ventilation Fraction of Inspired Oxygen 100 02/25/25 08:00 Temperature 36.9 C Pulse Rate 85 Pulse Rate [Monitor] Respiratory Rate 19 Blood Pressure 113/74 Pulse Oximetry 100 Oxygen Delivery Fraction of Inspired Oxygen Exam 2 Narrative: Examination reveals her to be comatose, sedated intubated, with no spontaneous movements of the upper or lower extremities and when eyes opened by the examiner no spontaneous nystagmus and no extraocular movements to the movements of the head from side to side. On sternal rub did not respond by moving upper or lower extremities. Pupils are round regular not reactive to light at this particular time, no spontaneous nystagmus, facial grimace is very minimal, tongue in the oral cavity but there is no spontaneous fasciculations, no spontaneous or reflexive movements of the upper and lower extremities, deep tendon reflexes could not be elicited and the plantar responses are neutral Results Labs 02/25/25 09:19 02/25/25 09:19 Labs: Short CBC 02/24/25 Range/Units 19:10 WBC 5.0 (4.5-10.0) K/mm3 Hgb 11.0 L (12.0-15.0) g/dL Hct 35.0 L (37.0-47.0) % Plt Count 245 (150-375) k/mm3 BMP 02/24/25 19:10 Sodium 140 Potassium 3.4 Chloride 106 Carbon Dioxide 19 L BUN 2 L D Creatinine 0.59 L Glucose 103 Calcium 9.0 Liver Function 02/24/25 Range/Units 19:10 Total Bilirubin 0.3 (0.2-1.3) mg/dL AST 45 H (14-36) U/L ALT 30 (6-35) U/L Alkaline Phosphatase 83 (38-126) U/L Albumin 4.5 (3.5-5.1) g/dL Urine 02/24/25 Range/Units 18:52 Urine Color Dark yellow (Yellow) Urine Appearance Turbid H (Clear) Urine pH 5.5 (5.0-9.0) Ur Specific [place] 1.025 (1.001-1.035) Urine Protein 1+ H (Negative) mg/dL Urine Glucose (UA) Negative (Negative) mg/dL
[2025-02-25 09:29] LABS: Hematocrit 29.8 % (37.0-47.0); Hemoglobin 9.1 g/dL (12.0-15.0); Immature Granulocyte Percent A 0.4 % (0-0.5); Lymphocytes Absolute Auto 1.26 K/mm3 (0.9-3.2); Mean Corpuscular HGB Conc 30.5 g/dl (32-36); Mean Corpuscular Hemoglobin 25.6 pg (26-34); Mean Corpuscular Volume 83.7 fl (80-100); Nucleated Red Blood Cells Absolute Auto 0.000 K/mm3 (0.0-0.012); Nucleated Red Blood Cells Perc 0.0 % (0.0-0.2); Platelet Count Result 195 k/mm3 (150-375); Red Blood Count 3.56 M/mm3 (4.2-5.4); White Blood Count 5.3 K/mm3 (4.5-10.0)
[2025-02-25 09:36] LABS: Ammonia 11 umol/L (9-30)
--- NOTE | 2025-02-25 09:46 | WPDCNINT ---
Assessment and Plan Assessment and plan (1) Seizure disorder: Code(s): G40.909 - Epilepsy, unspecified, not intractable, without status epilepticus Status: Chronic Assessment and Plan: 02/24: Patient was found by police having seizures in her car, upon EMS arrival patient received Versed IV, she also received multiple doses of Ativan in the ER. Patient presented with multiple seizure activity. Was admitted to IMU a she had seizure activity for approximately 24 minute, patient was intubated as she was given multiple doses of IV Versed, IV Ativan,, diazepam propofol. -currently on Keppra, propofol, valproate -appreciate Neurology evaluation recommendations -EEG at some point (2) Acute hypoxic respiratory failure: Code(s): J96.01 - Acute respiratory failure with hypoxia Status: Acute Assessment and Plan: Patient was intubated for airway protection secondary to prolonged seizure active -currently on CMV mode of ventilation, peep of 5, 90% FiO2 -chest x-ray and ABGs reviewed, ventilator adjusted, will wean FiO2 to maintain O2 sats > 92 per -sedated with propofol infusion, may add fentanyl if required (3) Nausea vomiting and diarrhea: Code(s): R11.2 - Nausea with vomiting, unspecified; R19.7 - Diarrhea, unspecified Status: Acute Assessment and Plan: Patient presented with nausea and vomiting also -continue Zofran PRN (4) Alcoholism: Code(s): F10.20 - Alcohol dependence, uncomplicated Status: Acute Assessment and Plan: Patient drinks 750 mL of hard liquor every day -will have to watch for alcohol withdrawal/DTs -continue folic acid and thiamine (5) Pulmonary embolism: Onset Date: 2023 Code(s): I26.99 - Other pulmonary embolism without acute cor pulmonale Status: Acute Assessment and Plan: Patient has a history of pulmonary embolism in 2023 -on Eliquis at home, will continue (6) Anxiety: Code(s): F41.9 - Anxiety disorder, unspecified Status: Chronic Assessment and Plan: Currently intubated and sedated (7) Depression: Qualifiers: Depression Type: unspecified Qualified Code(s): F32.9 - Major depressive disorder, single episode, unspecified Code(s): F32.9 - Major depressive disorder, single episode, unspecified Status: Chronic Assessment and Plan: Currently intubated and sedated (8) Illicit drug use: Code(s): F19.90 - Other psychoactive substance use, unspecified, uncomplicated Status: Acute Assessment and Plan: Patient takes synthetic heroin, opiates, cannabinoids -will watch for withdrawal Plan DVT prophylaxis: Eliquis Stress ulcer prophylaxis: Protonix Nutrition: Will start Tube feeds Code Status: Full code Critical Care Time Spent: 51 minutes Due to a high probability of clinically significant, life threatening deterioration, the patient required my highest level of preparedness to intervene emergently and I personally spent this critical care time directly and personally managing the patient. This critical care time included obtaining a history; examining the patient; pulse oximetry; ordering and review of studies; arranging urgent treatment with development of a management plan; evaluation of patient's response to treatment; frequent reassessment; and discussions with other providers. It was exclusive of separately billable procedures and treating other patients and teaching time. Please see Assessment and Plan section and the rest of the note for further information on patient assessment and treatment This dictation may have been done utilizing a voice recognition system. Attempts have been made to correct errors. However, there may be uncorrected grammatical, spelling, and recognitions errors present. Legal Document Assistant Consult Note Consult date: 02/25/25 Reason for consult: Seizures, intubated for airway protection HPI: Preethi Napier is a 29 year old female which is past medical history of chronic alcohol abuse, IV drug abuse including opiates, edibl THC. History of traumatic brain injury, seizure disorder, history of pseudoseizures, anxiety, depression, history of gastric sleeve surgery followed by revision to gastric bypass. Patient presented the ED on 02/24/2025 via EMS after police found her having seizures in her car. Patient had total of 8 seizures according the medical records. Received Versed IM. Patient also had a fall 2 days ago and had evidence of ecchymosis around the left eye. She had count 2 okay to at that time and had a CT head which was reportedly negative. She has reportedly been drinking more frequently and last alcohol was a night before coming to the ER. She has also been taking synthetic drugs similar to heroin. Patient was also complaining of some nausea and vomiting has not been able to tolerate any food. Patient was admitted to the IMU which she had seizure initially Mary lasting about 5 minutes, received diazepam 10 mg IV x1. Patient was also receiving oral Ativan for CIWA score. Patient again had seizure early this morning see was seizing for about 8-10 minutes. She was intubated, given multiple doses of IV Ativan, IV Versed, IV propofol pushes and was intubated in the ICU after being given rocuronium and propofol. Patient was loaded with Keppra. Patient seen and examined in the ICU this morning. Remains intubated on CMV mode of ventilation, peep of 5, 90% FiO2. Sedated with propofol infusion, does not open her eyes or follow simple commands, grimaces and withdraws to pain. Patient received 2 L of IV fluid bolus in the ER and is on maintenance IV fluids. She was started on ceftriaxone out possible UTI. On thiamine and folic acid Review of Systems Review of Systems: ROS unobtainable: Yes unobtainable due to endotracheal tube and unobtainable due to medical condition PMFSH Past Medical History Medical History (Updated 02/25/25 @ 10:51 by Jocelyne Persaud MD) On mechanically assisted ventilation Traumatic brain injury PTSD (post-traumatic stress disorder) Hypothyroidism Kidney stones Pulmonary embolism (2023) Essential hypertension Migraines Gastric ulcer At anastomosis site of prior sleeve gastrectomy noted on EGD 01/10/2020 Morbid obesity with BMI of 50.0-59.9, adult The patient is weight pre bypass surgery was approximately 430 lb she reports she got down to around 200 lb but has had regain of weight back up to 300 Pseudoseizures Anxiety Depression Seizure disorder Surgical History Surgical History History of removal of Port-a-Cath Evidence by scarring in the right upper chest History of esophagogastroduodenoscopy (EGD) 01/10/2020 History of laparoscopic cholecystectomy (01/2020) History of tonsillectomy (2012) History of gastric bypass Laparoscopic gastric bypass History of sleeve gastrectomy Laparoscopic. Prior to gastric bypass. Family History Family History Mother Gallbladder disease Grandparent Gallbladder disease Diabetes mellitus Father Gallbladder disease Hypertension Sibling Gallbladder disease Social History Social History Social History: The patient reports that she has drink heavily for 8 years. She has currently been drinking 750 mL of hard liquor a day for the last couple of years. She has a history of opiate abuse. She states that she has not been using opiates recently but has been using a synthetic opiate. She states that she smokes 3-4 cigarettes a day and constantly vapes all day every day. She has smoked since she was 15. She does use edible marijuana. Code status: Full code Smoking status: Current every day smoker Tobacco type: cigarettes and e-cigarettes/vaping Second hand tobacco smoke exposure: Yes Additional smoking assessment comments: patient vapes Alcohol intake: current Drinks per week: 40 Alcohol use details: 1 handle a day fire ball Substance use: former Substance use type: opiates Last use: 12/20/2023 Do You Feel Safe in your Home?: Yes Lack of Transportation: No Lack of Food: Never True Current Housing: I Have Housing Concerned About Future Housing: YES Difficulty Paying Gas/Electric Bills: No Difficulty Paying for Meds: YES Currently Unemployed: YES Education: High School Diploma/GED Difficulty w/ Childcare or Family Care: No Living arrangements: with family Occupation/Education: occupation Additional occupation/education comments: Works as a [employer] in a [employer]. Gender identity (if verbalized by the patient): Female Spiritual care concerns: No Meds Home Medications and Allergies Home Medications ?Medication ?Instructions ?Recorded ?Confirmed ?Type albuterol sulfate 90 mcg/actuation 1 puff inhalation Q4H PRN 02/24/25 02/24/25 History aerosol inhaler shortness of breath or wheezing apixaban 5 mg tablet (Eliquis) 5 mg PO Q12H 02/24/25 02/24/25 History aripiprazole 2 mg tablet 2 mg PO DAILY 02/24/25 02/24/25 History budesonide 160 mcg-glycopyr 9 2 inh inhalation .Q12HR 02/24/25 02/24/25 History mcg-formot 4.8 mcg/actuation HFA inhaler (Breztri Aerosphere) clonazepam 0.5 mg tablet 0.5 mg PO PRN PRN panic attack(s) 02/24/25 02/24/25 History cyclobenzaprine 10 mg tablet 10 mg PO Q8H PRN muscle spasm 02/24/25 02/24/25 History divalproex 125 mg capsule,delayed 125 mg PO TID 02/24/25 02/24/25 History release sprinkle divalproex 500 mg tablet,delayed 500 mg PO Q12H 02/24/25 02/24/25 History release levetiracetam 500 mg tablet 500 mg PO DAILY 02/24/25 02/24/25 History levothyroxine 50 mcg tablet 50 mcg PO DAILY 02/24/25 02/24/25 History losartan 50 mg tablet 50 mg PO DAILY 02/24/25 02/24/25 History ondansetron 4 mg disintegrating 4 mg PO Q4H PRN nausea and vomiting 02/24/25 02/24/25 History tablet quetiapine 50 mg tablet 50 mg PO HS 02/24/25 02/24/25 History sertraline 100 mg tablet 100 mg PO DAILY 02/24/25 02/24/25 History Allergies Allergy/AdvReac Type Severity Reaction Status Date / Time azithromycin Allergy Severe swelling Verified 02/24/25 18:28 codeine Allergy Severe swelling Verified 02/24/25 18:28 fexofenadine Allergy Intermediate hives Verified 02/24/25 18:28 hydrocodone Allergy Intermediate Hives Verified 02/24/25 18:28 lithium Allergy Intermediate Hives Verified 02/24/25 18:28 oxycodone (From Percocet) Allergy Intermediate Hives Verified 02/24/25 18:28 adhesive tape Allergy Mild Itching Verified 02/24/25 18:28 bupropion AdvReac Intermediate Nausea and Verified 02/24/25 18:28 Vomiting Vital Signs Vital Signs - 24 hr 02/24/25 18:01 02/24/25 18:13 02/24/25 18:17 Temperature Pulse Rate 115 H 103 H Pulse Rate [Monitor] Respiratory Rate 13 Blood Pressure 136/89 Pulse Oximetry 98 97 Oxygen Delivery Room Air Room Air Fraction of Inspired Oxygen 02/24/25 18:17 02/24/25 18:17 02/24/25 19:05 Temperature Pulse Rate 103 H 103 H Pulse Rate [Monitor] Respiratory Rate 17 18 Blood Pressure 128/77 128/77 Pulse Oximetry 97 96 Oxygen Delivery Room Air Fraction of Inspired Oxygen 02/24/25 20:01 02/24/25 21:30 02/24/25 22:30 Temperature Pulse Rate 109 H 106 H 107 H Pulse Rate [Monitor] Respiratory Rate 22 H 18 13 Blood Pressure 107/76 120/82 116/75 Pulse Oximetry 99 99 99 Oxygen Delivery Fraction of Inspired Oxygen 02/24/25 23:00 02/25/25 00:00 02/25/25 02:00 Temperature 97.9 F Pulse Rate 103 H 93 90 Pulse Rate [Monitor] Respiratory Rate 18 Blood Pressure 135/75 Pulse Oximetry 99 Oxygen Delivery Fraction of Inspired Oxygen 02/25/25 02:36 02/25/25 03:03 02/25/25 04:00 Temperature 99.6 F Pulse Rate 76 89 Pulse Rate [Monitor] 81 Respiratory Rate 16 20 Blood Pressure 141/81 H 127/67 Pulse Oximetry 100 98 Oxygen Delivery Fraction of Inspired Oxygen 02/25/25 04:00 02/25/25 06:32 02/25/25 06:32 Temperature Pulse Rate 85 99 94 Pulse Rate [Monitor] Respiratory Rate 18 Blood Pressure Pulse Oximetry 100 Oxygen Delivery Mechanical Ventilation Fraction of Inspired Oxygen 100 02/25/25 08:00 02/25/25 09:24 02/25/25 09:24 Temperature 98.4 F Pulse Rate 85 66 66 Pulse Rate [Monitor] Respiratory Rate 19 18 18 Blood Pressure 113/74 Pulse Oximetry 100 Oxygen Delivery Fraction of Inspired Oxygen Exam Narrative: General: Intubated and sedated in no acute distress HEENT:? Pupils equal and reactive, sclera is clear, ETT in place Neck:? Supple Respiratory:? Clear to auscultation bilaterally, no wheezing, adequate air entry Cardiac:? S1-S2 is normal, reviewed return room Abdomen:? Soft, nontender, nondistended, hypoactive bowel sounds, obese Extremities:? Trace edema bilaterally, palpable pedal pulses Neuro:? Intubated, sedated, does not open her eyes or follow simple commands, does grimace and withdraws to pain Skin:? No lesions noted Psych:? Unable to assess at this time Results Labs 02/25/25 09:19 02/25/25 09:19 Labs: Short CBC 02/24/25 02/25/25 Range/Units 19:10 09:19 WBC 5.0 5.3 (4.5-10.0) K/mm3 Hgb 11.0 L 9.1 L (12.0-15.0) g/dL Hct 35.0 L 29.8 L (37.0-47.0) % Plt Count 245 195 (150-375) k/mm3 BMP 02/24/25 19:10 Sodium 140 Potassium 3.4 Chloride 106 Carbon Dioxide 19 L BUN 2 L D Creatinine 0.59 L Glucose 103 Calcium 9.0 Liver Function 02/24/25 Range/Units 19:10 Total Bilirubin 0.3 (0.2-1.3) mg/dL AST 45 H (14-36) U/L ALT 30 (6-35) U/L Alkaline Phosphatase 83 (38-126) U/L Albumin 4.5 (3.5-5.1) g/dL Urine 02/24/25 02/25/25 Range/Units 18:52 08:30 Urine Color Dark yellow Dark yellow (Yellow) Urine Appearance Turbid H Turbid H (Clear) Urine pH 5.5 5.5 (5.0-9.0) Ur Specific [place] 1.025 1.029 (1.001-1.035) Urine Protein 1+ H 1+ H (Negative) mg/dL Urine Glucose (UA) Negative Negative (Negative) mg/dL Quality VTE Prophylaxis VTE prophylaxis: pharmacologic ordered Hospitalist MIPS Advance Care Plan I have confirmed that the patient's Advanced Care Plan is present, code status is documented, or surrogate decision maker is listed in patient medical record.: Yes Medication Reconciliation I have utilized all available resources to obtain, update and review the patients current medications (includes all prescriptions, OTC, herbals, cannabis, and nutritional supplements).: Yes
[2025-02-25 10:05] LABS: Alanine Aminotransferase 29 U/L (6-35); Albumin Level 3.6 g/dL (3.5-5.1); Alkaline Phosphatase 77 U/L (38-126); Anion Gap 8 mmol/L (4-12); Aspartate Amino Transferase 35 U/L (14-36); Bilirubin,Total 0.3 mg/dL (0.2-1.3); Blood Urea Nitrogen 3 mg/dL (7-17); Calcium 8.0 mg/dL (8.4-10.2); Carbon Dioxide 25 mmol/L (22-30); Chloride 103 mmol/L (98-107); Estimated CRCL calculation 146 ml/min; Estimated Glomerular Filt Rate > 60; Glucose 88 mg/dL (65-110); Magnesium 1.5 mg/dL (1.6-2.3); Potassium 2.9 mmol/L (3.4-5.0); Sodium 136 mmol/L (137-145); Total Protein 6.0 g/dL (6.3-8.2); Triglycerides 163 mg/dL (<150)
[2025-02-25] MEDS: MAGNESIUM SULF 2 GM/WATER 50ML 2 GM/50 ML BAG IVPB (10:36)
[2025-02-25] MEDS: APIXABAN 5 MG TABLET PO ×2 (10:36→20:14)
[2025-02-25] MEDS: POTASSIUM CHLORIDE 20 MEQ PACKET (FOR LIQUID) 40 MEQ FEED TUBE (10:36)
[2025-02-25] MEDS: KCL 40 MEQ/WATER 100 ML 100 ML 25 ML IVPB (11:09)
--- NOTE | 2025-02-25 13:21 | PM.IMPN ---
Progress Note: A&P Assessment and Plan (1) Seizure disorder: Code(s): G40.909 - Epilepsy, unspecified, not intractable, without status epilepticus Status: Chronic Assessment and Plan: 02/24: Patient was found by police having seizures in her car, upon EMS arrival patient received Versed IV, she also received multiple doses of Ativan in the ER. Patient presented with multiple seizure activity. Was admitted to IMU a she had seizure activity for approximately 24 minute, patient was intubated as she was given multiple doses of IV Versed, IV Ativan,, diazepam propofol. -currently on Keppra, propofol, valproate -appreciate Neurology evaluation recommendations -EEG at some point (2) Acute hypoxic respiratory failure: Code(s): J96.01 - Acute respiratory failure with hypoxia Status: Acute Assessment and Plan: Patient was intubated for airway protection secondary to prolonged seizure active -currently on CMV mode of ventilation, peep of 5, 90% FiO2 -chest x-ray and ABGs reviewed, ventilator adjusted, will wean FiO2 to maintain O2 sats > 92 per -sedated with propofol infusion, may add fentanyl if required (3) Nausea vomiting and diarrhea: Code(s): R11.2 - Nausea with vomiting, unspecified; R19.7 - Diarrhea, unspecified Status: Acute Assessment and Plan: Patient presented with nausea and vomiting also -continue Zofran PRN (4) Alcoholism: Code(s): F10.20 - Alcohol dependence, uncomplicated Status: Acute Assessment and Plan: Patient drinks 750 mL of hard liquor every day -will have to watch for alcohol withdrawal/DTs -continue folic acid and thiamine (5) Pulmonary embolism: Onset Date: 2023 Code(s): I26.99 - Other pulmonary embolism without acute cor pulmonale Status: Acute Assessment and Plan: Patient has a history of pulmonary embolism in 2023 -on Eliquis at home, will continue (6) Anxiety: Code(s): F41.9 - Anxiety disorder, unspecified Status: Chronic Assessment and Plan: Currently intubated and sedated (7) Depression: Qualifiers: Depression Type: unspecified Qualified Code(s): F32.9 - Major depressive disorder, single episode, unspecified Code(s): F32.9 - Major depressive disorder, single episode, unspecified Status: Chronic Assessment and Plan: Currently intubated and sedated (8) Illicit drug use: Code(s): F19.90 - Other psychoactive substance use, unspecified, uncomplicated Status: Acute Assessment and Plan: Patient takes synthetic heroin, opiates, cannabinoids -will watch for withdrawal Plan DVT prophylaxis: Eliquis Stress ulcer prophylaxis: Protonix Nutrition: Will start Tube feeds Code Status: Full code Subjective Date/time seen: 02/25/25 13:21 Interval history: Comfortable at bedside Review of Systems Review of Systems: 12 systems were reviewed with pertinent positives and negatives per HPI. Except as documented in the HPI, all other systems were reviewed and are negative. ROS unobtainable: Yes unobtainable due to endotracheal tube and unobtainable due to medical condition Exam Narrative: General: Intubated and sedated in no acute distress HEENT:? Pupils equal and reactive, sclera is clear, ETT in place Neck:? Supple Respiratory:? Clear to auscultation bilaterally, no wheezing, adequate air entry Cardiac:? S1-S2 is normal, reviewed return room Abdomen:? Soft, nontender, nondistended, hypoactive bowel sounds, obese Extremities:? Trace edema bilaterally, palpable pedal pulses Neuro:? Intubated, sedated, does not open her eyes or follow simple commands, does grimace and withdraws to pain Skin:? No lesions noted Psych:? Unable to assess at this time Const: Other: Acutely ill-appearing, appears older than stated age, morbidly obese HENMT: Other: Mucous membranes are dry, crowded posterior oropharynx, no oral pharyngeal erythema Eyes: Other: Pupils are equal but constricted, no scleral icterus, no conjunctival pallor, extra movements intact Neck: Other: Large neck circumference, no lymphadenopathy Resp: Other: Clear to auscultation bilaterally, no increased work of breathing Cardio: Other: Sinus tachycardia, 2+ bilateral radial pedal pulses, no murmur GI: Other: Obese, generalized tenderness palpation, soft, normoactive bowel sounds Skin: Other: Warm to touch, diaphoretic, tattoo left medial forearm Neuro: Other: Alert orient x4, speech is clear, no facial asymmetry Objective Data Vital Signs Vital Signs: Vital Signs - 24 hr 02/24/25 18:01 02/24/25 18:13 02/24/25 18:17 Temperature Pulse Rate 115 H 103 H Pulse Rate [Monitor] Respiratory Rate 13 Blood Pressure 136/89 Pulse Oximetry 98 97 Oxygen Delivery Room Air Room Air Fraction of Inspired Oxygen 02/24/25 18:17 02/24/25 18:17 02/24/25 19:05 Temperature Pulse Rate 103 H 103 H Pulse Rate [Monitor] Respiratory Rate 17 18 Blood Pressure 128/77 128/77 Pulse Oximetry 97 96 Oxygen Delivery Room Air Fraction of Inspired Oxygen 02/24/25 20:01 02/24/25 21:30 02/24/25 22:30 Temperature Pulse Rate 109 H 106 H 107 H Pulse Rate [Monitor] Respiratory Rate 22 H 18 13 Blood Pressure 107/76 120/82 116/75 Pulse Oximetry 99 99 99 Oxygen Delivery Fraction of Inspired Oxygen 02/24/25 23:00 02/25/25 00:00 02/25/25 02:00 Temperature 97.9 F Pulse Rate 103 H 93 90 Pulse Rate [Monitor] Respiratory Rate 18 Blood Pressure 135/75 Pulse Oximetry 99 Oxygen Delivery Fraction of Inspired Oxygen 02/25/25 02:36 02/25/25 03:03 02/25/25 04:00 Temperature 99.6 F Pulse Rate 76 89 Pulse Rate [Monitor] 81 Respiratory Rate 16 20 Blood Pressure 141/81 H 127/67 Pulse Oximetry 100 98 Oxygen Delivery Fraction of Inspired Oxygen 02/25/25 04:00 02/25/25 06:32 02/25/25 06:32 Temperature Pulse Rate 85 99 94 Pulse Rate [Monitor] Respiratory Rate 18 Blood Pressure Pulse Oximetry 100 Oxygen Delivery Mechanical Ventilation Fraction of Inspired Oxygen 100 02/25/25 08:00 02/25/25 08:00 02/25/25 08:00 Temperature 98.4 F 98.4 F Pulse Rate 85 82 81 Pulse Rate [Monitor] Respiratory Rate 19 20 Blood Pressure 113/74 120/74 Pulse Oximetry 100 100 Oxygen Delivery Fraction of Inspired Oxygen 02/25/25 08:10 02/25/25 09:00 02/25/25 09:24 Temperature 97.9 F Pulse Rate 71 61 66 Pulse Rate [Monitor] Respiratory Rate 18 18 Blood Pressure 109/71 Pulse Oximetry 100 100 Oxygen Delivery Mechanical Ventilation Fraction of Inspired Oxygen 90 02/25/25 09:24 02/25/25 10:00 02/25/25 10:00 Temperature 97.4 F L Pulse Rate 66 62 62 Pulse Rate [Monitor] Respiratory Rate 18 18 Blood Pressure 104/59 L Pulse Oximetry 100 Oxygen Delivery Fraction of Inspired Oxygen 02/25/25 10:33 02/25/25 11:00 02/25/25 11:00 Temperature 97.0 F L Pulse Rate 57 L 70 70 Pulse Rate [Monitor] Respiratory Rate 18 18 Blood Pressure 107/58 L Pulse Oximetry 100 100 Oxygen Delivery Mechanical Ventilation Fraction of Inspired Oxygen 90 02/25/25 11:48 02/25/25 11:58 02/25/25 12:00 Temperature Pulse Rate 61 58 L Pulse Rate [Monitor] Respiratory Rate 18 Blood Pressure Pulse Oximetry 100 Oxygen Delivery Mechanical Ventilation Fraction of Inspired Oxygen 50 50 02/25/25 12:00 Temperature 96.7 F L Pulse Rate 57 L Pulse Rate [Monitor] Respiratory Rate 18 Blood Pressure 103/57 L Pulse Oximetry 100 Oxygen Delivery Fraction of Inspired Oxygen Intake/Output Intake/Output: Intake & Output 02/22/25 02/23/25 02/24/25 02/25/25 23:59 23:59 23:59 23:59 Intake Total 250 129.7 Output Total 0 Balance 250 129.7 Meds/Results Medications: Active Medications Generic Name Dose Route Start Last Admin Trade Name Freq PRN Reason Stop Dose Admin Apixaban 5 mg 02/25/25 10:25 02/25/25 10:36 Apixaban 5 Mg Tablet PO 5 mg Q12HR SANA Administration Folic Acid 1 mg 02/25/25 09:00 02/25/25 08:38 Folic Acid 1 Mg/0.2 Ml Inj IV PUSH 1 mg QAM SANA Administration Ceftriaxone Sodium 1 gm/ 50 mls @ 100 mls/hr 02/25/25 21:00 Sodium Chloride IVPB Q24H SANA Valproate Sodium 250 mg/ 52.5 mls @ 52.5 mls/hr 02/25/25 06:00 02/25/25 07:13 Dextrose IVPB Not Given Q8HR SANA Lactated Ringer's 1,000 mls @ 75 mls/hr 02/24/25 21:50 02/25/25 09:21 Lr - Lactated Ringers Iv IV CONT Not Given .[id number] SANA Propofol 100 mls @ 4.095 mls/hr 02/25/25 06:25 02/25/25 11:00 Diprivan IV CONT 30 mcg/kg/min .[id number] SANA 24.57 mls/hr Titration Protocol 5 MCG/KG/MIN Levetiracetam 1,000 mg in 100 mls @ 400 mls/hr 02/25/25 09:00 02/25/25 08:49 Keppra Iv IVPB 400 mls/hr Q12HR SANA Administration Potassium Chloride 100 mls @ 25 mls/hr 02/25/25 10:23 02/25/25 11:09 Kcl 40 Meq/Water 100 Ml IVPB 02/25/25 14:22 25 mls/hr ONCE ONE Administration Lorazepam 1 mg 02/24/25 21:49 02/24/25 22:23 Lorazepam Inj (*Crx) 2 Mg/Ml Vial IV PUSH 1 mg Q2H PRN Administration CIWA>8, HR>100, or DBP>100 Lorazepam 2 mg 02/24/25 21:49 02/25/25 01:00 Lorazepam (*Crx) 1 Mg Tablet PO 2 mg Q2H PRN Administration CIWA>8, HR>100, or DBP>100 Multi-Ingred Cream/Lotion/Oil/Oint 1 applic 02/25/25 09:00 02/25/25 08:41 Mineral Oil/White Petrolatum Ointment EACH EYE 1 applic Q12HR SANA Administration Multivitamins/Calcium 1 tablet 02/25/25 09:00 02/25/25 09:21 Therapeutic Multivitamins/Minerals Tab (*Bkc) PO Not Given DAILY SANA Ondansetron HCl 4 mg 02/24/25 21:49 02/24/25 22:23 Ondansetron Inj 4 Mg/2 Ml Vial IV PUSH 4 mg Q6H PRN Administration Nausea And Vomiting Pantoprazole Sodium 40 mg 02/25/25 09:00 02/25/25 08:41 Pantoprazole Sodium Iv 40 Mg Vial IV PUSH 40 mg Q12HR SANA Administration Thiamine HCl 100 mg 02/25/25 09:00 02/25/25 08:37 Thiamine Hcl 200 Mg/2 Ml Vial IV PUSH 100 mg QAM SANA Administration Radiology Results: ITS Impressions Head CT 02/24/25 19:31 IMPRESSION: No acute intracranial process. Chest X-Ray 02/25/25 07:03 Impression: 1: Mild interstitial edema. Labs Labs: Laboratory Results - last 24 hr 02/24/25 02/24/25 02/24/25 18:50 18:52 19:10 WBC 5.0 RBC 4.28 Hgb 11.0 L Hct 35.0 L MCV 81.8 MCH 25.7 L MCHC 31.4 L RDW 18.7 H Plt Count 245 MPV 9.8 Immature Gran % (Auto) 0.4 Neut % (Auto) 59.2 Lymph % (Auto) 20.2 Stephens % (Auto) 17.4 H Eos % (Auto) 2.0 Baso % (Auto) 0.8 Lymph # (Auto) 1.01 Stephens # (Auto) 0.9 H Eos # (Auto) 0.1 Baso # (Auto) 0.0 Abs Immat Gran (auto) 0.02 Absolute Neuts (auto) 3.0 Absolute Nucleated RBC 0.000 Nucleated RBC % 0.0 PT 16.1 H INR 1.3 APTT 27.1 Puncture Site ABG pH ABG pCO2 ABG pO2 ABG PO2/FiO2 Ratio ABG HCO3 ABG O2 Saturation ABG O2 Content ABG Base Excess A-a Gradient Oxyhemoglobin Total Hemoglobin O2 Delivery Device O2 Liters/Min Minute Volume Vent Rate Vent Mode FiO2 Tidal Volume PEEP Peak Inspir Pressure Pressure Support Sodium 140 Potassium 3.4 Chloride 106 Carbon Dioxide 19 L Anion Gap 15 H BUN 2 L D Creatinine 0.59 L Estim Creat Clear Calc 165 Estimated GFR > 60 Glucose 103 POC Capillary Glucose Lactic Acid Calcium 9.0 Phosphorus Magnesium Total Bilirubin 0.3 AST 45 H ALT 30 Alkaline Phosphatase 83 Ammonia Total Protein 7.1 Albumin 4.5 Triglycerides Urine Color Dark yellow Urine Appearance Turbid H Urine pH 5.5 Ur Specific [place] 1.025 Urine Protein 1+ H Urine Glucose (UA) Negative Urine Ketones Trace H Ur Blood (Man) Negative Urine Nitrate Negative Urine Bilirubin Negative Urine Urobilinogen 1.0 Add Ur Microanalysis Reviewed Leukocyte Esterase Rfl Trace H Urine RBC 3-5 H Urine WBC 6-10 H Ur Squamous Epith Cells Moderate Amorphous Sediment Urine Bacteria 1+ H Urine Casts 3-5 POC Urine HCG, Qual Negative Urine Opiates Screen Negative Urine Methadone Screen Negative Ur Barbiturates Screen Positive A Valproic Acid Ur Phencyclidine Scrn Negative Ur Amphetamine Screen Negative U Benzodiazepines Scrn Positive A Urine Cocaine Screen Negative U Cannabinoids Screen Positive A Ethyl Alcohol 93 02/24/25 02/24/25 02/24/25 20:33 22:03 22:47 WBC RBC Hgb Hct MCV MCH MCHC RDW Plt Count MPV Immature Gran % (Auto) Neut % (Auto) Lymph % (Auto) Stephens % (Auto) Eos % (Auto) Baso % (Auto) Lymph # (Auto) Stephens # (Auto) Eos # (Auto) Baso # (Auto) Abs Immat Gran (auto) Absolute Neuts (auto) Absolute Nucleated RBC Nucleated RBC % PT INR APTT Puncture Site ABG pH ABG pCO2 ABG pO2 ABG PO2/FiO2 Ratio ABG HCO3 ABG O2 Saturation ABG O2 Content ABG Base Excess A-a Gradient Oxyhemoglobin Total Hemoglobin O2 Delivery Device O2 Liters/Min Minute Volume Vent Rate Vent Mode FiO2 Tidal Volume PEEP Peak Inspir Pressure Pressure Support Sodium Potassium Chloride Carbon Dioxide Anion Gap BUN Creatinine Estim Creat Clear Calc Estimated GFR Glucose POC Capillary Glucose 94 Lactic Acid 3.0 H Calcium Phosphorus Magnesium Total Bilirubin AST ALT Alkaline Phosphatase Ammonia Total Protein Albumin Triglycerides Urine Color Urine Appearance Urine pH Ur Specific [place] Urine Protein Urine Glucose (UA) Urine Ketones Ur Blood (Man) Urine Nitrate Urine Bilirubin Urine Urobilinogen Add Ur Microanalysis Leukocyte Esterase Rfl Urine RBC Urine WBC Ur Squamous Epith Cells Amorphous Sediment Urine Bacteria Urine Casts POC Urine HCG, Qual Urine Opiates Screen Urine Methadone Screen Ur Barbiturates Screen Valproic Acid < 10.0 L Ur Phencyclidine Scrn Ur Amphetamine Screen U Benzodiazepines Scrn Urine Cocaine Screen U Cannabinoids Screen Ethyl Alcohol 02/25/25 02/25/25 02/25/25 00:42 02:15 08:06 WBC RBC Hgb Hct MCV MCH MCHC RDW Plt Count MPV Immature Gran % (Auto) Neut % (Auto) Lymph % (Auto) Stephens % (Auto) Eos % (Auto) Baso % (Auto) Lymph # (Auto) Stephens # (Auto) Eos # (Auto) Baso # (Auto) Abs Immat Gran (auto) Absolute Neuts (auto) Absolute Nucleated RBC Nucleated RBC % PT INR APTT Puncture Site Left radial ABG pH 7.361 ABG pCO2 46.6 H ABG pO2 332.0 H ABG PO2/FiO2 Ratio 3.69 ABG HCO3 25.8 ABG O2 Saturation 99.7 ABG O2 Content 15.4 L ABG Base Excess 0.1 A-a Gradient 261.9 Oxyhemoglobin 99.2 Total Hemoglobin 10.4 L O2 Delivery Device Ventilator O2 Liters/Min Not Reportable Minute Volume Not Reportable Vent Rate 18 Vent Mode Cmv FiO2 90 Tidal Volume 400 PEEP 5 Peak Inspir Pressure Not Reportable Pressure Support Not Reportable Sodium Potassium Chloride Carbon Dioxide Anion Gap BUN Creatinine Estim Creat Clear Calc Estimated GFR Glucose POC Capillary Glucose 87 Lactic Acid 2.6 H Calcium Phosphorus Magnesium Total Bilirubin AST ALT Alkaline Phosphatase Ammonia Total Protein Albumin Triglycerides Urine Color Urine Appearance Urine pH Ur Specific [place] Urine Protein Urine Glucose (UA) Urine Ketones Ur Blood (Man) Urine Nitrate Urine Bilirubin Urine Urobilinogen Add Ur Microanalysis Leukocyte Esterase Rfl Urine RBC Urine WBC Ur Squamous Epith Cells Amorphous Sediment Urine Bacteria Urine Casts POC Urine HCG, Qual Urine Opiates Screen Urine Methadone Screen Ur Barbiturates Screen Valproic Acid Ur Phencyclidine Scrn Ur Amphetamine Screen U Benzodiazepines Scrn Urine Cocaine Screen U Cannabinoids Screen Ethyl Alcohol 02/25/25 02/25/25 02/25/25 08:30 09:19 11:11 WBC 5.3 RBC 3.56 L Hgb 9.1 L Hct 29.8 L MCV 83.7 MCH 25.6 L MCHC 30.5 L RDW 18.7 H Plt Count 195 MPV 9.8 Immature Gran % (Auto) 0.4 Neut % (Auto) 59.1 Lymph % (Auto) 23.9 Stephens % (Auto) 13.5 H Eos % (Auto) 2.5 Baso % (Auto) 0.6 Lymph # (Auto) 1.26 [place] # (Auto) 0.7 H Eos # (Auto) 0.1 Baso # (Auto) 0.0 Abs Immat Gran (auto) 0.02 Absolute Neuts (auto) 3.1 Absolute Nucleated RBC 0.000 Nucleated RBC % 0.0 PT INR APTT Puncture Site ABG pH ABG pCO2 ABG pO2 ABG PO2/FiO2 Ratio ABG HCO3 ABG O2 Saturation ABG O2 Content ABG Base Excess A-a Gradient Oxyhemoglobin Total Hemoglobin O2 Delivery Device O2 Liters/Min Minute Volume Vent Rate Vent Mode FiO2 Tidal Volume PEEP Peak Inspir Pressure Pressure Support Sodium 136 L Potassium 2.9 L Chloride 103 Carbon Dioxide 25 Anion Gap 8 BUN 3 L Creatinine 0.68 L Estim Creat Clear Calc 146 Estimated GFR > 60 Glucose 88 POC Capillary Glucose 94 Lactic Acid 2.6 H Calcium 8.0 L Phosphorus 4.0 Magnesium 1.5 L Total Bilirubin 0.3 AST 35 ALT 29 Alkaline Phosphatase 77 Ammonia 11 Total Protein 6.0 L Albumin 3.6 Triglycerides 163 H Urine Color Dark yellow Urine Appearance Turbid H Urine pH 5.5 Ur Specific [place] 1.029 Urine Protein 1+ H Urine Glucose (UA) Negative Urine Ketones Trace H Ur Blood (Man) 1+ H Urine Nitrate Positive H Urine Bilirubin 1+ H Urine Urobilinogen 1.0 Add Ur Microanalysis Leukocyte Esterase Rfl Trace H Urine RBC 3-5 H Urine WBC 6-10 H Ur Squamous Epith Cells Moderate Amorphous Sediment Few H Urine Bacteria None seen Urine Casts 6-10 POC Urine HCG, Qual Urine Opiates Screen Urine Methadone Screen Ur Barbiturates Screen Valproic Acid Ur Phencyclidine Scrn Ur Amphetamine Screen U Benzodiazepines Scrn Urine Cocaine Screen U Cannabinoids Screen Ethyl Alcohol Quality VTE Prophylaxis VTE prophylaxis: pharmacologic ordered
[2025-02-25] MEDS: VALPROATE SODIUM INJ 250 MG in DEXTROSE 5% IN WATER 50 ML 52.5 MG IVPB ×2 (14:08→21:01)
[2025-02-25] MEDS: cefTRIAXone 1 GM in SODIUM CHLORIDE 0.9% IV 50 ML 100 ML IVPB (20:32)
[2025-02-25] MEDS: PROPOFOL IV EMULSION 100 ML 28.67 MG IV CONT (21:32)
[2025-02-26] VITALS (31 sets, daily range): BP systolic 103–118; BP diastolic 49–65; PULSE 55–77; RESP 18–100; TEMP 36.5–37.1; O2SAT 18–100
[2025-02-26] MEDS: PROPOFOL IV EMULSION 100 ML 28.67 MG IV CONT ×7 (00:15→20:34)
[2025-02-26] MEDS: LACTATED RINGERS 1,000 ML 75 ML IV CONT ×2 (00:15→14:29)
[2025-02-26 04:03] LABS: Hematocrit 28.1 % (37.0-47.0); Hemoglobin 8.6 g/dL (12.0-15.0); Immature Granulocyte Percent A 0.4 % (0-0.5); Lymphocytes Absolute Auto 1.22 K/mm3 (0.9-3.2); Mean Corpuscular HGB Conc 30.6 g/dl (32-36); Mean Corpuscular Hemoglobin 26.0 pg (26-34); Mean Corpuscular Volume 84.9 fl (80-100); Nucleated Red Blood Cells Absolute Auto 0.000 K/mm3 (0.0-0.012); Nucleated Red Blood Cells Perc 0.0 % (0.0-0.2); Platelet Count Result 154 k/mm3 (150-375); Red Blood Count 3.31 M/mm3 (4.2-5.4); White Blood Count 4.5 K/mm3 (4.5-10.0)
[2025-02-26 04:26] LABS: Alanine Aminotransferase 21 U/L (6-35); Albumin Level 3.0 g/dL (3.5-5.1); Alkaline Phosphatase 94 U/L (38-126); Anion Gap 5 mmol/L (4-12); Aspartate Amino Transferase 26 U/L (14-36); Bilirubin,Total 0.2 mg/dL (0.2-1.3); Blood Urea Nitrogen 7 mg/dL (7-17); Calcium 8.3 mg/dL (8.4-10.2); Carbon Dioxide 25 mmol/L (22-30); Chloride 108 mmol/L (98-107); Estimated CRCL calculation 161 ml/min; Estimated Glomerular Filt Rate > 60; Glucose 88 mg/dL (65-110); Magnesium 2.0 mg/dL (1.6-2.3); Potassium 3.5 mmol/L (3.4-5.0); Sodium 138 mmol/L (137-145); Total Protein 5.3 g/dL (6.3-8.2)
[2025-02-26] MEDS: VALPROATE SODIUM INJ 250 MG in DEXTROSE 5% IN WATER 50 ML 52.5 MG IVPB (05:11)
[2025-02-26 05:18] LABS: Alveolar/Arterial O2 Gradient 74.1 mmHg; Arterial Blood Gas Ventilator rate 18 /MIN; Carboxyhemoglobin 0.5 % THb (0-2.0); Fractional Inspired Oxygen 30 %; HCO3 ABG 27.0 mEq/l (22.0-26.0); Methemoglobin ABG 0.1 %THb (0-1.5); Modified Allen's Test Unable to perform; Oxygen Content ABG 13.3 %vol (16.0-22.0); Oxygen Saturation ABG 96.8 % (95.0-100.0); PCO2 ABG 43.7 mmHg (35.0-45.0); PO2 ABG 88.5 mmHg (80.0-100.0); PO2 FiO2 Ratio Arterial Blood 2.95 %; Reduced Hemoglobin 3.9 %THb (0-5.0); Site Drawn RIGHT RADIAL
[2025-02-26 05:19] LABS: Arterial Blood Gas Tidal Volume 400 ml
[2025-02-26] MEDS: PANTOPRAZOLE SODIUM IV 40 MG VIAL IV PUSH ×2 (08:58→20:26)
[2025-02-26] MEDS: MINERAL OIL/WHITE PETROLATUM OINTMENT 1 APPLIC EACH EYE ×2 (08:58→20:26)
[2025-02-26] MEDS: THIAMINE HCL 200 MG/2 ML VIAL 100 MG IV PUSH (08:58)
[2025-02-26] MEDS: APIXABAN 5 MG TABLET PO ×2 (08:59→20:26)
[2025-02-26] MEDS: THERAPEUTIC MULTIVITAMINS/MINERALS TAB (*BKC) 1 TABLET PO (08:59)
[2025-02-26] MEDS: FOLIC ACID 1 MG/0.2 ML INJ IV PUSH (09:01)
--- NOTE | 2025-02-26 09:43 | P.PNINT_ITS ---
Progress Note: A&P Assessment and Plan (1) Seizure disorder: Code(s): G40.909 - Epilepsy, unspecified, not intractable, without status epilepticus Status: Chronic Assessment and Plan: 02/24: Patient was found by police having seizures in her car, upon EMS arrival patient received Versed IV, she also received multiple doses of Ativan in the ER. Patient presented with multiple seizure activity. Was admitted to IMU a she had seizure activity for approximately 24 minute, patient was intubated as she was given multiple doses of IV Versed, IV Ativan,, diazepam propofol. -valproic level is on admission was significantly low, -lamotrigine and levetiracetam levels pending -currently on Keppra, propofol, valproate -appreciate Neurology evaluation and recommendations -EEG has been ordered (2) Acute hypoxic respiratory failure: Code(s): J96.01 - Acute respiratory failure with hypoxia Status: Acute Assessment and Plan: Patient was intubated for airway protection secondary to prolonged seizure active -currently on CMV mode of ventilation, peep of 5, 90% FiO2 -chest x-ray and ABGs reviewed, ventilator adjusted, will wean FiO2 to maintain O2 sats > 92 per -sedated with propofol infusion, may add fentanyl if required -the sedation vacation along with SBT SAT (3) Nausea vomiting and diarrhea: Code(s): R11.2 - Nausea with vomiting, unspecified; R19.7 - Diarrhea, unspecified Status: Acute Assessment and Plan: Patient presented with nausea and vomiting also -continue Zofran PRN (4) Alcoholism: Code(s): F10.20 - Alcohol dependence, uncomplicated Status: Acute Assessment and Plan: Patient drinks 750 mL of hard liquor every day -will have to watch for alcohol withdrawal/DTs -continue folic acid and thiamine (5) Pulmonary embolism: Onset Date: 2023 Code(s): I26.99 - Other pulmonary embolism without acute cor pulmonale Status: Acute Assessment and Plan: Patient has a history of pulmonary embolism in 2023 -on Eliquis at home, will continue (6) Anxiety: Code(s): F41.9 - Anxiety disorder, unspecified Status: Chronic Assessment and Plan: Currently intubated and sedated (7) Depression: Qualifiers: Depression Type: unspecified Qualified Code(s): F32.9 - Major depressive disorder, single episode, unspecified Code(s): F32.9 - Major depressive disorder, single episode, unspecified Status: Chronic Assessment and Plan: Currently intubated and sedated (8) Illicit drug use: Code(s): F19.90 - Other psychoactive substance use, unspecified, uncomplicated Status: Acute Assessment and Plan: Patient takes synthetic heroin, opiates, cannabinoids -will watch for withdrawal Plan DVT prophylaxis: Eliquis Stress ulcer prophylaxis: Protonix Nutrition: Tolerating tube Code Status: Full code Critical Care Time Spent: 32 minutes Due to a high probability of clinically significant, life threatening deterioration, the patient required my highest level of preparedness to intervene emergently and I personally spent this critical care time directly and personally managing the patient. This critical care time included obtaining a history; examining the patient; pulse oximetry; ordering and review of studies; arranging urgent treatment with development of a management plan; evaluation of patient's response to treatment; frequent reassessment; and discussions with other providers. It was exclusive of separately billable procedures and treating other patients and teaching time. Please see Assessment and Plan section and the rest of the note for further information on patient assessment and treatment This dictation may have been done utilizing a voice recognition system. Attempts have been made to correct errors. However, there may be uncorrected grammatical, spelling, and recognitions errors present. Subjective Date/time seen: 02/26/25 09:43 Interval history: Reason for consult: Seizures, intubated for airway protection 02/26/2025: Patient seen and examined the ICU, remains intubated on CMV mode of ventilation, peep of 5, 30% FiO2. Sedated with propofol infusion, patient opens her eyes, follows simple commands in all extremities. No seizure activity noted overnight. Urine output has been low, hemodynamically stable, afebrile, tolerating tube feeds Review of Systems Review of Systems: ROS unobtainable: Yes unobtainable due to endotracheal tube and unobtainable due to medical condition Exam Narrative: General: Intubated and sedated in no acute distress HEENT:? Pupils equal and reactive, sclera is clear, ETT in place Neck:? Supple Respiratory:? Clear to auscultation bilaterally, no wheezing, adequate air entry Cardiac:? S1-S2 is normal, reviewed return room Abdomen:? Soft, nontender, nondistended, hypoactive bowel sounds, obese Extremities:? Trace edema bilaterally, palpable pedal pulses Neuro:? Intubated, sedated, opens her eyes, follows simple commands in all extremities Skin:? No lesions noted Psych:? Unable to assess at this time Objective Data Vital Signs Vital Signs: Vital Signs - 24 hr 02/25/25 10:00 02/25/25 10:00 02/25/25 10:33 Temperature 97.4 F L Pulse Rate 62 62 57 L Respiratory Rate 18 Blood Pressure 104/59 L Pulse Oximetry 100 100 Oxygen Delivery Mechanical Ventilation Fraction of Inspired Oxygen 90 02/25/25 11:00 02/25/25 11:00 02/25/25 11:48 Temperature 97.0 F L Pulse Rate 70 70 61 Respiratory Rate 18 18 18 Blood Pressure 107/58 L Pulse Oximetry 100 100 Oxygen Delivery Mechanical Ventilation Fraction of Inspired Oxygen 50 02/25/25 11:58 02/25/25 12:00 02/25/25 12:00 Temperature 96.7 F L Pulse Rate 58 L 57 L Respiratory Rate 18 Blood Pressure 103/57 L Pulse Oximetry 100 Oxygen Delivery Fraction of Inspired Oxygen 50 02/25/25 12:06 02/25/25 13:00 02/25/25 13:14 Temperature 96.8 F L Pulse Rate 59 L 60 55 L Respiratory Rate 18 18 Blood Pressure 106/57 L Pulse Oximetry 100 Oxygen Delivery Fraction of Inspired Oxygen 02/25/25 13:14 02/25/25 14:00 02/25/25 14:00 Temperature 97.1 F L Pulse Rate 55 L 57 L 57 L Respiratory Rate 18 18 Blood Pressure 105/59 L Pulse Oximetry 100 Oxygen Delivery Fraction of Inspired Oxygen 02/25/25 14:00 02/25/25 14:05 02/25/25 15:00 Temperature 97.4 F L Pulse Rate 57 L 58 L 60 Respiratory Rate 18 18 Blood Pressure 103/59 L Pulse Oximetry 100 100 Oxygen Delivery Mechanical Ventilation Fraction of Inspired Oxygen 50 02/25/25 15:00 02/25/25 15:59 02/25/25 15:59 Temperature Pulse Rate 60 59 L 60 Respiratory Rate 18 18 Blood Pressure Pulse Oximetry 100 Oxygen Delivery Mechanical Ventilation Fraction of Inspired Oxygen 50 02/25/25 15:59 02/25/25 16:00 02/25/25 16:00 Temperature 97.8 F Pulse Rate 59 L 62 Respiratory Rate 18 Blood Pressure 107/59 L Pulse Oximetry 100 Oxygen Delivery Fraction of Inspired Oxygen 50 02/25/25 16:00 02/25/25 16:35 02/25/25 17:00 Temperature 98.2 F Pulse Rate 59 L 60 60 Respiratory Rate 18 18 Blood Pressure 111/93 H Pulse Oximetry 100 100 Oxygen Delivery Mechanical Ventilation Fraction of Inspired Oxygen 50 02/25/25 17:14 02/25/25 18:00 02/25/25 18:00 Temperature Pulse Rate 58 L 66 66 Respiratory Rate 18 18 Blood Pressure Pulse Oximetry Oxygen Delivery Fraction of Inspired Oxygen 02/25/25 20:00 02/25/25 20:00 02/25/25 20:00 Temperature 98.9 F Pulse Rate 68 68 Respiratory Rate 18 18 Blood Pressure 108/58 L Pulse Oximetry 100 100 Oxygen Delivery Mechanical Ventilation Fraction of Inspired Oxygen 50 02/25/25 20:00 02/25/25 20:00 02/25/25 20:02 Temperature Pulse Rate 64 69 Respiratory Rate Blood Pressure Pulse Oximetry 100 Oxygen Delivery Mechanical Ventilation Fraction of Inspired Oxygen 50 50 02/25/25 21:32 02/25/25 21:32 02/25/25 22:00 Temperature Pulse Rate 65 65 63 Respiratory Rate 18 18 Blood Pressure Pulse Oximetry Oxygen Delivery Fraction of Inspired Oxygen 02/25/25 22:00 02/25/25 22:00 02/25/25 23:23 Temperature Pulse Rate 63 63 67 Respiratory Rate 18 18 Blood Pressure 106/52 L Pulse Oximetry 100 100 Oxygen Delivery Mechanical Ventilation Fraction of Inspired Oxygen 40 02/26/25 00:00 02/26/25 00:00 02/26/25 00:00 Temperature 98.8 F Pulse Rate 67 67 67 Respiratory Rate 18 18 18 Blood Pressure 106/51 L Pulse Oximetry 98 98 Oxygen Delivery Mechanical Ventilation Fraction of Inspired Oxygen 30 02/26/25 00:00 02/26/25 00:00 02/26/25 00:15 Temperature Pulse Rate 69 72 Respiratory Rate 18 Blood Pressure Pulse Oximetry Oxygen Delivery Fraction of Inspired Oxygen 30 02/26/25 00:15 02/26/25 02:00 02/26/25 02:00 Temperature Pulse Rate 72 69 69 Respiratory Rate 18 18 Blood Pressure Pulse Oximetry Oxygen Delivery Fraction of Inspired Oxygen 02/26/25 02:00 02/26/25 02:12 02/26/25 03:45 Temperature Pulse Rate 69 73 70 Respiratory Rate 18 18 Blood Pressure 109/58 L Pulse Oximetry 98 98 Oxygen Delivery Mechanical Ventilation Fraction of Inspired Oxygen 30 02/26/25 03:46 02/26/25 04:00 02/26/25 04:00 Temperature 98.8 F Pulse Rate 70 77 77 Respiratory Rate 18 18 18 Blood Pressure 110/55 L Pulse Oximetry 100 Oxygen Delivery Fraction of Inspired Oxygen 02/26/25 04:00 02/26/25 04:00 02/26/25 04:00 Temperature Pulse Rate 77 76 Respiratory Rate 18 Blood Pressure Pulse Oximetry 100 Oxygen Delivery Mechanical Ventilation Fraction of Inspired Oxygen 30 30 02/26/25 05:00 02/26/25 06:00 02/26/25 06:00 Temperature Pulse Rate 70 67 67 Respiratory Rate 18 Blood Pressure 106/52 L Pulse Oximetry 99 99 Oxygen Delivery Mechanical Ventilation Fraction of Inspired Oxygen 30 02/26/25 06:00 02/26/25 07:10 02/26/25 07:10 Temperature Pulse Rate 67 61 61 Respiratory Rate 18 18 18 Blood Pressure Pulse Oximetry Oxygen Delivery Fraction of Inspired Oxygen 02/26/25 07:57 02/26/25 08:00 Temperature 97.8 F Pulse Rate 59 L 61 Respiratory Rate 100 H Blood Pressure 114/57 L Pulse Oximetry 100 18 L Oxygen Delivery Mechanical Ventilation Fraction of Inspired Oxygen 30 Intake/Output Intake/Output: Intake & Output 02/23/25 02/24/25 02/25/25 02/26/25 23:59 23:59 23:59 23:59 Intake Total 250 1039.0 1653.4 Output Total 200 200 Balance 250 839.0 1453.4 Meds/Results Medications: Active Medications Generic Name Dose Route Start Last Admin Trade Name Freq PRN Reason Stop Dose Admin Apixaban 5 mg 02/25/25 10:25 02/26/25 08:59 Apixaban 5 Mg Tablet PO 5 mg Q12HR SANA Administration Folic Acid 1 mg 02/25/25 09:00 02/26/25 09:01 Folic Acid 1 Mg/0.2 Ml Inj IV PUSH 1 mg QAM SANA Administration Ceftriaxone Sodium 1 gm/ 50 mls @ 100 mls/hr 02/25/25 21:00 02/25/25 21:02 Sodium Chloride IVPB Infused Q24H SANA Infusion Valproate Sodium 250 mg/ 52.5 mls @ 52.5 mls/hr 02/25/25 06:00 02/26/25 06:11 Dextrose IVPB Infused Q8HR SANA Infusion Lactated Ringer's 1,000 mls @ 75 mls/hr 02/24/25 21:50 02/26/25 00:15 Lr - Lactated Ringers Iv IV CONT 75 mls/hr .[id number] SANA Administration Levetiracetam 1,000 mg in 100 mls @ 400 mls/hr 02/25/25 09:00 02/25/25 20:30 Keppra Iv IVPB Infused Q12HR SANA Infusion Propofol 100 mls @ 28.665 mls/hr 02/25/25 17:10 02/26/25 07:10 Diprivan IV CONT 35 mcg/kg/min .Q3H30M SANA 28.67 mls/hr Administration Protocol 35 MCG/KG/MIN Lorazepam 1 mg 02/24/25 21:49 02/24/25 22:23 Lorazepam Inj (*Crx) 2 Mg/Ml Vial IV PUSH 1 mg Q2H PRN Administration CIWA>8, HR>100, or DBP>100 Lorazepam 2 mg 02/24/25 21:49 02/25/25 01:00 Lorazepam (*Crx) 1 Mg Tablet PO 2 mg Q2H PRN Administration CIWA>8, HR>100, or DBP>100 Multi-Ingred Cream/Lotion/Oil/Oint 1 applic 02/25/25 09:00 02/26/25 08:58 Mineral Oil/White Petrolatum Ointment EACH EYE 1 applic Q12HR SANA Administration Multivitamins/Calcium 1 tablet 02/25/25 09:00 02/26/25 08:59 Therapeutic Multivitamins/Minerals Tab (*Bkc) PO 1 tablet DAILY SANA Administration Ondansetron HCl 4 mg 02/24/25 21:49 02/24/25 22:23 Ondansetron Inj 4 Mg/2 Ml Vial IV PUSH 4 mg Q6H PRN Administration Nausea And Vomiting Pantoprazole Sodium 40 mg 02/25/25 09:00 02/26/25 08:58 Pantoprazole Sodium Iv 40 Mg Vial IV PUSH 40 mg Q12HR SANA Administration Thiamine HCl 100 mg 02/25/25 09:00 02/26/25 08:58 Thiamine Hcl 200 Mg/2 Ml Vial IV PUSH 100 mg QAM SANA Administration Radiology Results: ITS Impressions Head CT 02/24/25 19:31 IMPRESSION: No acute intracranial process. Chest X-Ray 02/26/25 05:48 Impression: 1: Stable mild edema. Labs Labs: Laboratory Results - last 24 hr 02/25/25 02/25/25 02/26/25 09:19 11:11 00:11 WBC RBC Hgb Hct MCV MCH MCHC RDW Plt Count MPV Immature Gran % (Auto) Neut % (Auto) Lymph % (Auto) [place] % (Auto) Eos % (Auto) Baso % (Auto) Lymph # (Auto) [place] # (Auto) Eos # (Auto) Baso # (Auto) Abs Immat Gran (auto) Absolute Neuts (auto) Absolute Nucleated RBC Nucleated RBC % Puncture Site ABG pH ABG pCO2 ABG pO2 ABG PO2/FiO2 Ratio ABG HCO3 ABG O2 Saturation ABG O2 Content ABG Base Excess A-a Gradient Oxyhemoglobin Carboxyhemoglobin Methemoglobin Reduced Hemoglobin Total Hemoglobin O2 Delivery Device O2 Liters/Min Minute Volume Vent Rate Vent Mode FiO2 Tidal Volume PEEP Peak Inspir Pressure Pressure Support Sodium 136 L Potassium 2.9 L Chloride 103 Carbon Dioxide 25 Anion Gap 8 BUN 3 L Creatinine 0.68 L Estim Creat Clear Calc 146 Estimated GFR > 60 Glucose 88 POC Capillary Glucose 94 97 Calcium 8.0 L Phosphorus 4.0 Magnesium 1.5 L Total Bilirubin 0.3 AST 35 ALT 29 Alkaline Phosphatase 77 Total Protein 6.0 L Albumin 3.6 Triglycerides 163 H 02/26/25 02/26/25 02/26/25 03:59 05:06 05:49 WBC 4.5 RBC 3.31 L Hgb 8.6 L Hct 28.1 L MCV 84.9 MCH 26.0 MCHC 30.6 L RDW 18.6 H Plt Count 154 MPV 9.1 Immature Gran % (Auto) 0.4 Neut % (Auto) 57.9 Lymph % (Auto) 27.4 [place] % (Auto) 11.7 H Eos % (Auto) 2.2 Baso % (Auto) 0.4 Lymph # (Auto) 1.22 [place] # (Auto) 0.5 Eos # (Auto) 0.1 Baso # (Auto) 0.0 Abs Immat Gran (auto) 0.02 Absolute Neuts (auto) 2.6 Absolute Nucleated RBC 0.000 Nucleated RBC % 0.0 Puncture Site Right radial ABG pH 7.409 ABG pCO2 43.7 ABG pO2 88.5 ABG PO2/FiO2 Ratio 2.95 ABG HCO3 27.0 H ABG O2 Saturation 96.8 ABG O2 Content 13.3 L ABG Base Excess 2.1 A-a Gradient 74.1 Oxyhemoglobin 95.5 Carboxyhemoglobin 0.5 Methemoglobin 0.1 Reduced Hemoglobin 3.9 Total Hemoglobin 9.8 L O2 Delivery Device Ventilator O2 Liters/Min Not Reportable Minute Volume Not Reportable Vent Rate 18 Vent Mode Cmv FiO2 30 Tidal Volume 400 PEEP 5 Peak Inspir Pressure Not Reportable Pressure Support Not Reportable Sodium 138 Potassium 3.5 Chloride 108 H Carbon Dioxide 25 Anion Gap 5 BUN 7 Creatinine 0.61 L Estim Creat Clear Calc 161 Estimated GFR > 60 Glucose 88 POC Capillary Glucose 96 Calcium 8.3 L Phosphorus 3.2 Magnesium 2.0 Total Bilirubin 0.2 AST 26 ALT 21 Alkaline Phosphatase 94 Total Protein 5.3 L Albumin 3.0 L Triglycerides Quality VTE Prophylaxis VTE prophylaxis: pharmacologic ordered
[2025-02-26] MEDS: levETIRAcetam 1000MG/NACL100ML 1,000 MG/100 ML BAG 400 MG IVPB ×3 (10:03→21:00)
[2025-02-26] MEDS: LORazepam INJ (*CRX) 2 MG/ML VIAL IV PUSH ×2 (10:03→12:35)
[2025-02-26] MEDS: POTASSIUM CHLORIDE 20 MEQ PACKET (FOR LIQUID) 40 MEQ PO (10:43)
--- NOTE | 2025-02-26 10:57 | PCFNICU ---
ICU Rounding Note: Pt current nutrition is Vital AF 1.2 at 20 ml/hr. Nutrition recommendation: Prosource BID Last recorded weight is 136.9 kg, stable Bowel Motility: No BM Labs Reviewed: Cr 0.61, Hct 28.1, Hgb 8.6 Meds Noted:LR 75ml/hr, Protonix, Thiamine, Folic Acid, Keppra, Propofol at 35 hooy=939 kcal Skin: WNL Additional Notes: Patient remains on mechanical vent. Tube feedings are being tolerated at 20 ml/hr of Vital AF 1.2. Due to Propofol 35 mcgs= 757 kcal would recommend to continue tube feedings of Vital AF 1.2 at 20 ml/hr and add Prosource BID for additional 40 gm protein. Total Nutrition: 1445 kcal/73 gm protein/357 ml water. Flush 30 ml q 4hours. Following daily in ICU rounds. Will monitor weight, labs, skin, diet orders, meds every Monday and Monday
[2025-02-26] MEDS: VALPROATE SODIUM INJ 750 MG in DEXTROSE 5% IN WATER 50 ML 57.5 MG IVPB ×2 (14:22→21:18)
--- NOTE | 2025-02-26 17:10 | PM.IMPN ---
Progress Note: A&P Assessment and Plan (1) Seizure disorder: Code(s): G40.909 - Epilepsy, unspecified, not intractable, without status epilepticus Status: Chronic Assessment and Plan: 02/24: Patient was found by police having seizures in her car, upon EMS arrival patient received Versed IV, she also received multiple doses of Ativan in the ER. Patient presented with multiple seizure activity. Was admitted to IMU a she had seizure activity for approximately 24 minute, patient was intubated as she was given multiple doses of IV Versed, IV Ativan,, diazepam propofol. -valproic level is on admission was significantly low, -lamotrigine and levetiracetam levels pending -currently on Keppra, propofol, valproate -appreciate Neurology evaluation and recommendations -EEG has been ordered (2) Acute hypoxic respiratory failure: Code(s): J96.01 - Acute respiratory failure with hypoxia Status: Acute Assessment and Plan: Patient was intubated for airway protection secondary to prolonged seizure active -currently on CMV mode of ventilation, peep of 5, 90% FiO2 -chest x-ray and ABGs reviewed, ventilator adjusted, will wean FiO2 to maintain O2 sats > 92 per -sedated with propofol infusion, may add fentanyl if required -the sedation vacation along with SBT SAT (3) Nausea vomiting and diarrhea: Code(s): R11.2 - Nausea with vomiting, unspecified; R19.7 - Diarrhea, unspecified Status: Acute Assessment and Plan: Patient presented with nausea and vomiting also -continue Zofran PRN (4) Alcoholism: Code(s): F10.20 - Alcohol dependence, uncomplicated Status: Acute Assessment and Plan: Patient drinks 750 mL of hard liquor every day -will have to watch for alcohol withdrawal/DTs -continue folic acid and thiamine (5) Pulmonary embolism: Onset Date: 2023 Code(s): I26.99 - Other pulmonary embolism without acute cor pulmonale Status: Acute Assessment and Plan: Patient has a history of pulmonary embolism in 2023 -on Eliquis at home, will continue (6) Anxiety: Code(s): F41.9 - Anxiety disorder, unspecified Status: Chronic Assessment and Plan: Currently intubated and sedated (7) Depression: Qualifiers: Depression Type: unspecified Qualified Code(s): F32.9 - Major depressive disorder, single episode, unspecified Code(s): F32.9 - Major depressive disorder, single episode, unspecified Status: Chronic Assessment and Plan: Currently intubated and sedated (8) Illicit drug use: Code(s): F19.90 - Other psychoactive substance use, unspecified, uncomplicated Status: Acute Assessment and Plan: Patient takes synthetic heroin, opiates, cannabinoids -will watch for withdrawal Plan DVT prophylaxis: Eliquis Stress ulcer prophylaxis: Protonix Nutrition: Tolerating tube Code Status: Full code Subjective Date/time seen: 02/26/25 17:10 Interval history: still intubated and had 2 episodes of seizures Review of Systems Review of Systems: 12 systems were reviewed with pertinent positives and negatives per HPI. Except as documented in the HPI, all other systems were reviewed and are negative. ROS unobtainable: Yes unobtainable due to endotracheal tube and unobtainable due to medical condition Exam Narrative: General: Intubated and sedated in no acute distress HEENT:? Pupils equal and reactive, sclera is clear, ETT in place Neck:? Supple Respiratory:? Clear to auscultation bilaterally, no wheezing, adequate air entry Cardiac:? S1-S2 is normal, reviewed return room Abdomen:? Soft, nontender, nondistended, hypoactive bowel sounds, obese Extremities:? Trace edema bilaterally, palpable pedal pulses Neuro:? Intubated, sedated, opens her eyes, follows simple commands in all extremities Skin:? No lesions noted Psych:? Unable to assess at this time Const: Other: Acutely ill-appearing, appears older than stated age, morbidly obese HENMT: Other: Mucous membranes are dry, crowded posterior oropharynx, no oral pharyngeal erythema Eyes: Other: Pupils are equal but constricted, no scleral icterus, no conjunctival pallor, extra movements intact Neck: Other: Large neck circumference, no lymphadenopathy Resp: Other: Clear to auscultation bilaterally, no increased work of breathing Cardio: Other: Sinus tachycardia, 2+ bilateral radial pedal pulses, no murmur GI: Other: Obese, generalized tenderness palpation, soft, normoactive bowel sounds Skin: Other: Warm to touch, diaphoretic, tattoo left medial forearm Neuro: Other: Alert orient x4, speech is clear, no facial asymmetry Objective Data Vital Signs Vital Signs: Vital Signs - 24 hr 02/25/25 17:14 02/25/25 18:00 02/25/25 18:00 Temperature Pulse Rate 58 L 66 66 Respiratory Rate 18 18 Blood Pressure Pulse Oximetry Oxygen Delivery Fraction of Inspired Oxygen 02/25/25 20:00 02/25/25 20:00 02/25/25 20:00 Temperature 98.9 F Pulse Rate 68 68 Respiratory Rate 18 18 Blood Pressure 108/58 L Pulse Oximetry 100 100 Oxygen Delivery Mechanical Ventilation Fraction of Inspired Oxygen 50 02/25/25 20:00 02/25/25 20:00 02/25/25 20:02 Temperature Pulse Rate 64 69 Respiratory Rate Blood Pressure Pulse Oximetry 100 Oxygen Delivery Mechanical Ventilation Fraction of Inspired Oxygen 50 50 02/25/25 21:32 02/25/25 21:32 02/25/25 22:00 Temperature Pulse Rate 65 65 63 Respiratory Rate 18 18 Blood Pressure Pulse Oximetry Oxygen Delivery Fraction of Inspired Oxygen 02/25/25 22:00 02/25/25 22:00 02/25/25 23:23 Temperature Pulse Rate 63 63 67 Respiratory Rate 18 18 Blood Pressure 106/52 L Pulse Oximetry 100 100 Oxygen Delivery Mechanical Ventilation Fraction of Inspired Oxygen 40 02/26/25 00:00 02/26/25 00:00 02/26/25 00:00 Temperature 98.8 F Pulse Rate 67 67 67 Respiratory Rate 18 18 18 Blood Pressure 106/51 L Pulse Oximetry 98 98 Oxygen Delivery Mechanical Ventilation Fraction of Inspired Oxygen 30 02/26/25 00:00 02/26/25 00:00 02/26/25 00:15 Temperature Pulse Rate 69 72 Respiratory Rate 18 Blood Pressure Pulse Oximetry Oxygen Delivery Fraction of Inspired Oxygen 30 02/26/25 00:15 02/26/25 02:00 02/26/25 02:00 Temperature Pulse Rate 72 69 69 Respiratory Rate 18 18 Blood Pressure Pulse Oximetry Oxygen Delivery Fraction of Inspired Oxygen 02/26/25 02:00 02/26/25 02:12 02/26/25 03:45 Temperature Pulse Rate 69 73 70 Respiratory Rate 18 18 Blood Pressure 109/58 L Pulse Oximetry 98 98 Oxygen Delivery Mechanical Ventilation Fraction of Inspired Oxygen 30 02/26/25 03:46 02/26/25 04:00 02/26/25 04:00 Temperature 98.8 F Pulse Rate 70 77 77 Respiratory Rate 18 18 18 Blood Pressure 110/55 L Pulse Oximetry 100 Oxygen Delivery Fraction of Inspired Oxygen 07/23/25 04:00 02/26/25 04:00 02/26/25 04:00 Temperature Pulse Rate 77 76 Respiratory Rate 18 Blood Pressure Pulse Oximetry 100 Oxygen Delivery Mechanical Ventilation Fraction of Inspired Oxygen 30 30 02/26/25 05:00 02/26/25 06:00 02/26/25 06:00 Temperature Pulse Rate 70 67 67 Respiratory Rate 18 Blood Pressure 106/52 L Pulse Oximetry 99 99 Oxygen Delivery Mechanical Ventilation Fraction of Inspired Oxygen 30 02/26/25 06:00 02/26/25 07:10 02/26/25 07:10 Temperature Pulse Rate 67 61 61 Respiratory Rate 18 18 18 Blood Pressure Pulse Oximetry Oxygen Delivery Fraction of Inspired Oxygen 02/26/25 07:57 02/26/25 08:00 02/26/25 08:00 Temperature 97.8 F Pulse Rate 59 L 61 61 Respiratory Rate 100 H 18 Blood Pressure 114/57 L Pulse Oximetry 100 18 L 100 Oxygen Delivery Mechanical Ventilation Mechanical Ventilation Fraction of Inspired Oxygen 30 30 02/26/25 08:00 02/26/25 08:00 02/26/25 08:00 Temperature Pulse Rate 61 60 Respiratory Rate 18 Blood Pressure Pulse Oximetry Oxygen Delivery Fraction of Inspired Oxygen 30 02/26/25 09:53 02/26/25 10:00 02/26/25 10:00 Temperature 97.7 F Pulse Rate 58 L 72 72 Respiratory Rate 18 25 H Blood Pressure 118/61 Pulse Oximetry 100 Oxygen Delivery Fraction of Inspired Oxygen 02/26/25 10:03 02/26/25 10:33 02/26/25 10:33 Temperature Pulse Rate 55 L 60 60 Respiratory Rate 18 18 18 Blood Pressure Pulse Oximetry Oxygen Delivery Fraction of Inspired Oxygen 02/26/25 11:29 02/26/25 12:00 02/26/25 12:00 Temperature Pulse Rate 74 75 Respiratory Rate 18 Blood Pressure Pulse Oximetry 97 98 Oxygen Delivery Mechanical Ventilation Mechanical Ventilation Fraction of Inspired Oxygen 30 30 30 02/26/25 12:00 02/26/25 12:00 02/26/25 13:42 Temperature 97.9 F Pulse Rate 75 74 64 Respiratory Rate 18 18 Blood Pressure 105/49 L Pulse Oximetry 98 Oxygen Delivery Fraction of Inspired Oxygen 02/26/25 13:42 02/26/25 14:00 02/26/25 14:00 Temperature 98.2 F Pulse Rate 64 61 61 Respiratory Rate 18 18 18 Blood Pressure 109/55 L Pulse Oximetry 99 Oxygen Delivery Fraction of Inspired Oxygen 02/26/25 14:00 02/26/25 15:20 02/26/25 16:00 Temperature Pulse Rate 61 61 62 Respiratory Rate 18 Blood Pressure Pulse Oximetry 98 99 Oxygen Delivery Mechanical Ventilation Mechanical Ventilation Fraction of Inspired Oxygen 30 30 02/26/25 16:00 02/26/25 16:00 02/26/25 16:00 Temperature 98.2 F Pulse Rate 62 62 Respiratory Rate 18 18 Blood Pressure 109/65 Pulse Oximetry 99 Oxygen Delivery Fraction of Inspired Oxygen 30 02/26/25 16:00 02/26/25 17:04 02/26/25 17:04 Temperature Pulse Rate 62 61 61 Respiratory Rate 18 18 Blood Pressure Pulse Oximetry Oxygen Delivery Fraction of Inspired Oxygen Intake/Output Intake/Output: Intake & Output 02/23/25 02/24/25 02/25/25 02/26/25 23:59 23:59 23:59 23:59 Intake Total 250 1039.0 3089.9 Output Total 200 200 Balance 250 839.0 2889.9 Meds/Results Medications: Active Medications Generic Name Dose Route Start Last Admin Trade Name Freq PRN Reason Stop Dose Admin Apixaban 5 mg 02/25/25 10:25 02/26/25 08:59 Apixaban 5 Mg Tablet PO 5 mg Q12HR SANA Administration Folic Acid 1 mg 02/25/25 09:00 02/26/25 09:01 Folic Acid 1 Mg/0.2 Ml Inj IV PUSH 1 mg QAM SANA Administration Ceftriaxone Sodium 1 gm/ 50 mls @ 100 mls/hr 02/25/25 21:00 02/25/25 21:02 Sodium Chloride IVPB Infused Q24H SANA Infusion Lactated Ringer's 1,000 mls @ 75 mls/hr 02/24/25 21:50 02/26/25 14:29 Lr - Lactated Ringers Iv IV CONT 75 mls/hr .[id number] SANA Administration Propofol 100 mls @ 28.665 mls/hr 02/25/25 17:10 02/26/25 17:04 Diprivan IV CONT 35 mcg/kg/min .Q3H30M SANA 28.67 mls/hr Administration Protocol 35 MCG/KG/MIN Levetiracetam 1,000 mg in 100 mls @ 400 mls/hr 02/26/25 15:30 02/26/25 16:51 Keppra Iv IVPB Infused Q8HR SANA Infusion Valproate Sodium 750 mg/ 57.5 mls @ 57.5 mls/hr 02/26/25 14:00 02/26/25 16:52 Dextrose IVPB Infused Q8HR SANA Infusion Lorazepam 1 mg 02/24/25 21:49 02/24/25 22:23 Lorazepam Inj (*Crx) 2 Mg/Ml Vial IV PUSH 1 mg Q2H PRN Administration CIWA>8, HR>100, or DBP>100 Lorazepam 2 mg 02/26/25 12:32 02/26/25 12:35 Lorazepam Inj (*Crx) 2 Mg/Ml Vial IV PUSH 2 mg Q2H PRN Administration seizures Multi-Ingred Cream/Lotion/Oil/Oint 1 applic 02/25/25 09:00 02/26/25 08:58 Mineral Oil/White Petrolatum Ointment EACH EYE 1 applic Q12HR SANA Administration Multivitamins/Calcium 1 tablet 02/25/25 09:00 02/26/25 08:59 Therapeutic Multivitamins/Minerals Tab (*Bkc) PO 1 tablet DAILY SANA Administration Ondansetron HCl 4 mg 02/24/25 21:49 02/24/25 22:23 Ondansetron Inj 4 Mg/2 Ml Vial IV PUSH 4 mg Q6H PRN Administration Nausea And Vomiting Pantoprazole Sodium 40 mg 02/25/25 09:00 02/26/25 08:58 Pantoprazole Sodium Iv 40 Mg Vial IV PUSH 40 mg Q12HR SANA Administration Sodium Chloride 10 ml 02/26/25 22:00 Central Line Flush IV PUSH Q8HR SANA Sodium Chloride 20 ml 02/26/25 16:48 Central Line Flush IV PUSH PRN PRN after blood draws Thiamine HCl 100 mg 02/25/25 09:00 02/26/25 08:58 Thiamine Hcl 200 Mg/2 Ml Vial IV PUSH 100 mg QAM SANA Administration Radiology Results: ITS Impressions Head CT 02/24/25 19:31 IMPRESSION: No acute intracranial process. Chest X-Ray 02/26/25 05:48 Impression: 1: Stable mild edema. Labs Labs: Laboratory Results - last 24 hr 02/26/25 02/26/25 02/26/25 00:11 03:59 05:06 WBC 4.5 RBC 3.31 L Hgb 8.6 L Hct 28.1 L MCV 84.9 MCH 26.0 MCHC 30.6 L RDW 18.6 H Plt Count 154 MPV 9.1 Immature Gran % (Auto) 0.4 Neut % (Auto) 57.9 Lymph % (Auto) 27.4 Clay % (Auto) 11.7 H Eos % (Auto) 2.2 Baso % (Auto) 0.4 Lymph # (Auto) 1.22 Clay # (Auto) 0.5 Eos # (Auto) 0.1 Baso # (Auto) 0.0 Abs Immat Gran (auto) 0.02 Absolute Neuts (auto) 2.6 Absolute Nucleated RBC 0.000 Nucleated RBC % 0.0 Puncture Site Right radial ABG pH 7.409 ABG pCO2 43.7 ABG pO2 88.5 ABG PO2/FiO2 Ratio 2.95 ABG HCO3 27.0 H ABG O2 Saturation 96.8 ABG O2 Content 13.3 L ABG Base Excess 2.1 A-a Gradient 74.1 Oxyhemoglobin 95.5 Carboxyhemoglobin 0.5 Methemoglobin 0.1 Reduced Hemoglobin 3.9 Total Hemoglobin 9.8 L O2 Delivery Device Ventilator O2 Liters/Min Not Reportable Minute Volume Not Reportable Vent Rate 18 Vent Mode Cmv FiO2 30 Tidal Volume 400 PEEP 5 Peak Inspir Pressure Not Reportable Pressure Support Not Reportable Sodium 138 Potassium 3.5 Chloride 108 H Carbon Dioxide 25 Anion Gap 5 BUN 7 Creatinine 0.61 L Estim Creat Clear Calc 161 Estimated GFR > 60 Glucose 88 POC Capillary Glucose 97 Calcium 8.3 L Phosphorus 3.2 Magnesium 2.0 Total Bilirubin 0.2 AST 26 ALT 21 Alkaline Phosphatase 94 Total Protein 5.3 L Albumin 3.0 L 02/26/25 02/26/25 05:49 12:56 WBC RBC Hgb Hct MCV MCH MCHC RDW Plt Count MPV Immature Gran % (Auto) Neut % (Auto) Lymph % (Auto) Clay % (Auto) Eos % (Auto) Baso % (Auto) Lymph # (Auto) Clay # (Auto) Eos # (Auto) Baso # (Auto) Abs Immat Gran (auto) Absolute Neuts (auto) Absolute Nucleated RBC Nucleated RBC % Puncture Site ABG pH ABG pCO2 ABG pO2 ABG PO2/FiO2 Ratio ABG HCO3 ABG O2 Saturation ABG O2 Content ABG Base Excess A-a Gradient Oxyhemoglobin Carboxyhemoglobin Methemoglobin Reduced Hemoglobin Total Hemoglobin O2 Delivery Device O2 Liters/Min Minute Volume Vent Rate Vent Mode FiO2 Tidal Volume PEEP Peak Inspir Pressure Pressure Support Sodium Potassium Chloride Carbon Dioxide Anion Gap BUN Creatinine Estim Creat Clear Calc Estimated GFR Glucose POC Capillary Glucose 96 93 Calcium Phosphorus Magnesium Total Bilirubin AST ALT Alkaline Phosphatase Total Protein Albumin Quality VTE Prophylaxis VTE prophylaxis: pharmacologic ordered
[2025-02-26] MEDS: cefTRIAXone 1 GM in SODIUM CHLORIDE 0.9% IV 50 ML 100 ML IVPB (20:25)
[2025-02-26] MEDS: CENTRAL LINE FLUSH 10 ML IV PUSH (21:00)
[2025-02-26] MEDS: PROPOFOL IV EMULSION 100 ML 32.76 MG IV CONT (23:12)
[2025-02-27] VITALS (36 sets, daily range): BP systolic 108–124; BP diastolic 53–69; PULSE 50–89; RESP 16–19; TEMP 36.2–36.8; O2SAT 97–100
[2025-02-27] MEDS: PROPOFOL IV EMULSION 100 ML 32.76 MG IV CONT ×2 (02:15→05:04)
[2025-02-27] MEDS: LACTATED RINGERS 1,000 ML 75 ML IV CONT ×2 (03:40→17:33)
[2025-02-27 04:51] LABS: Hematocrit 28.3 % (37.0-47.0); Hemoglobin 8.7 g/dL (12.0-15.0); Immature Granulocyte Percent A 0.5 % (0-0.5); Lymphocytes Absolute Auto 1.24 K/mm3 (0.9-3.2); Mean Corpuscular HGB Conc 30.7 g/dl (32-36); Mean Corpuscular Hemoglobin 25.8 pg (26-34); Mean Corpuscular Volume 84.0 fl (80-100); Nucleated Red Blood Cells Absolute Auto 0.000 K/mm3 (0.0-0.012); Nucleated Red Blood Cells Perc 0.0 % (0.0-0.2); Platelet Count Result 168 k/mm3 (150-375); Red Blood Count 3.37 M/mm3 (4.2-5.4); White Blood Count 3.7 K/mm3 (4.5-10.0)
[2025-02-27 04:57] LABS: Alveolar/Arterial O2 Gradient 72.3 mmHg; Carboxyhemoglobin 0.6 % THb (0-2.0); Fractional Inspired Oxygen 30 %; HCO3 ABG 25.3 mEq/l (22.0-26.0); Methemoglobin ABG 0.0 %THb (0-1.5); Oxygen Content ABG 13.3 %vol (16.0-22.0); Oxygen Saturation ABG 98.0 % (95.0-100.0); PCO2 ABG 34.5 mmHg (35.0-45.0); PO2 ABG 101.1 mmHg (80.0-100.0); PO2 FiO2 Ratio Arterial Blood 3.37 %; Reduced Hemoglobin 2.3 %THb (0-5.0)
[2025-02-27 04:59] LABS: Arterial Blood Gas Ventilator rate 18 /MIN; Modified Allen's Test Pass; Site Drawn RIGHT RADIAL
[2025-02-27 05:00] LABS: Arterial Blood Gas Tidal Volume 400 ml
[2025-02-27] MEDS: levETIRAcetam 1000MG/NACL100ML 1,000 MG/100 ML BAG 400 MG IVPB ×3 (05:05→17:08)
[2025-02-27 05:17] LABS: Alanine Aminotransferase 16 U/L (6-35); Albumin Level 3.0 g/dL (3.5-5.1); Alkaline Phosphatase 95 U/L (38-126); Anion Gap 4 mmol/L (4-12); Aspartate Amino Transferase 19 U/L (14-36); Bilirubin,Total < 0.1 mg/dL (0.2-1.3); Blood Urea Nitrogen 10 mg/dL (7-17); Calcium 8.4 mg/dL (8.4-10.2); Carbon Dioxide 26 mmol/L (22-30); Chloride 107 mmol/L (98-107); Estimated CRCL calculation 177 ml/min; Estimated Glomerular Filt Rate > 60; Glucose 86 mg/dL (65-110); Lipase 64 U/L (23-300); Magnesium 2.0 mg/dL (1.6-2.3); Potassium 3.6 mmol/L (3.4-5.0); Sodium 137 mmol/L (137-145); Total Protein 5.4 g/dL (6.3-8.2); Triglycerides 130 mg/dL (<150)
[2025-02-27] MEDS: CENTRAL LINE FLUSH 10 ML IV PUSH ×3 (05:46→21:21)
[2025-02-27] MEDS: VALPROATE SODIUM INJ 750 MG in DEXTROSE 5% IN WATER 50 ML 57.5 MG IVPB (05:46)
[2025-02-27] MEDS: PROPOFOL IV EMULSION 100 ML 28.67 MG IV CONT (08:15)
[2025-02-27] MEDS: APIXABAN 5 MG TABLET PO ×2 (08:17→20:16)
[2025-02-27] MEDS: MINERAL OIL/WHITE PETROLATUM OINTMENT 1 APPLIC EACH EYE ×2 (08:18→20:21)
[2025-02-27] MEDS: THERAPEUTIC MULTIVITAMINS/MINERALS TAB (*BKC) 1 TABLET PO (08:18)
[2025-02-27] MEDS: FOLIC ACID 1 MG/0.2 ML INJ IV PUSH (08:18)
[2025-02-27] MEDS: PANTOPRAZOLE SODIUM IV 40 MG VIAL IV PUSH ×2 (08:18→20:17)
[2025-02-27] MEDS: THIAMINE HCL 200 MG/2 ML VIAL 100 MG IV PUSH (08:27)
[2025-02-27] MEDS: LORazepam INJ (*CRX) 2 MG/ML VIAL IV PUSH ×2 (09:35→09:36)
--- NOTE | 2025-02-27 09:49 | PC.NURSE ---
Addendum entered by Maria M Wolf RN 02/27/25 12:35: Interventions at the time of seizure recognition included oral suctioning, safe environment, airway protection (ET managed by RT), stopped continuous tube feedings. Original Note: This RN had just communicated with patient via pen/paper during sedation wean. Answering appropriately and effectively. After leaving the room, moments later the ventilator had began alarming. This RN and RT arrived to room to see patients head now turned to right side, bilateral lower extremities making small repetitive cycling motions, her upper extrmeities were both flexing inwards towards trunk. Unresponsive to voice, provider made aware immediately as first dose of ativan was being pulled from the pyxis, he was at bedside discussing case with neurology (see orders for interventions and changes to scheduled medications) Seizure lasted approximately 5 minutes in duration and resolved after x2 doses of ativan 2 mg and increasing propofol.
[2025-02-27] MEDS: PHENobarbitaL sodium (*CRX) 130 MG/ML VIAL 260 MG IV PUSH (10:19)
--- NOTE | 2025-02-27 10:59 | WPDNEUROLOGY ---
Neurology EEG Report General Information Date of Study: 02/26/25 TEST Electroencephalogram DIAGNOSIS seizure disorder CONDITION OF RECORDING patient is in ICU, intubated and sedated, alert and drowsy and cooperative EEG NUMBER [id number] CLINICAL HISTORY patient is 29 years old with history of depression, anxiety, pseudo versus true seizures, alcoholism, traumatic brain injury, gastric bypass surgery. Patient was driving to a meeting when she was found by the police in the car. EEG DESCRIPTION The background activity , when awake, consists of posterior dominant rhythm in alpha range of 8-9 hertz with an amplitude of 20-40 microvolts. This appears mildly formed. Anteriorly low amplitude mixed frequency activity was seen. There is a mild anteroposterior gradient. During drowsiness attenuation of background activity and a intermittent rhythmic delta activity was seen. Hyperventilation photic stimulation were not performed. Patient did not progress to stage 2 sleep. IMPRESSION this is a normal EEG obtained during awake and Drowsy states.
[2025-02-27] MEDS: PROPOFOL IV EMULSION 100 ML 40.95 MG IV CONT ×6 (11:03→22:45)
--- NOTE | 2025-02-27 11:28 | PCFNICU ---
ICU Rounding Note: Pt current nutrition is Vital AF 1.2 at 20 ml/hr. Nutrition recommendation:Vital HP at 30 ml/hr. Last recorded weight is 136.5 kg, stable. Bowel Motility: +BM reported 02/22, Miralax added today. Labs Reviewed: Cr 0.55, Hct 28.3, Hgb 8.7 Meds Noted:Protonix, Keppra, Propofol 50 twrm=5325 kcal, Folic Acid, Thiamine, Skin: WNL Additional Notes:Patient remains on mechanical vent. Tube feedings are being tolerated of Vital AF 1.2 at 20 ml/hr. Spoke with Window Machine Operator today regarding formula change to 2/2 not meeting protein needs. orders for Vital HP at 30 ml/hr with Prosource BID. Total Nutrition: 1901 kcal/98 gm protein/552 ml water. Flush 30 ml q 4 hours. Following daily in ICU rounds. Will monitor weight, labs, skin, diet orders, meds every Monday and Monday.
--- NOTE | 2025-02-27 11:50 | P.PNINT_ITS ---
Progress Note: A&P Assessment and Plan (1) Seizure disorder: Code(s): G40.909 - Epilepsy, unspecified, not intractable, without status epilepticus Status: Chronic Assessment and Plan: 02/24: Patient was found by police having seizures in her car, upon EMS arrival patient received Versed IV, she also received multiple doses of Ativan in the ER. Patient presented with multiple seizure activity. Was admitted to IMU a she had seizure activity for approximately 24 minute, patient was intubated as she was given multiple doses of IV Versed, IV Ativan,, diazepam propofol. -valproic level is on admission was significantly low, -lamotrigine and levetiracetam levels pending -discussed with Neurology, increased Keppra to 1 g q.6 hours and valproic acid to 750 mg Q 8 hours -patient was also given 1 dose of phenobarbital 260 mg IV x1, if the seizures are associated with alcohol withdrawal, given long half life of phenobarbital -appreciate Neurology evaluation and recommendations -02/26: EEG: this is a normal EEG obtained during awake and Drowsy states (2) Acute hypoxic respiratory failure: Code(s): J96.01 - Acute respiratory failure with hypoxia Status: Acute Assessment and Plan: Patient was intubated for airway protection secondary to prolonged seizure active -currently on CMV mode of ventilation, peep of 5, 90% FiO2 -chest x-ray and ABGs reviewed, ventilator adjusted, will wean FiO2 to maintain O2 sats > 92 per -sedated with propofol infusion, (3) Nausea vomiting and diarrhea: Code(s): R11.2 - Nausea with vomiting, unspecified; R19.7 - Diarrhea, unspecified Status: Acute Assessment and Plan: Patient presented with nausea and vomiting also -continue Zofran PRN (4) Alcoholism: Code(s): F10.20 - Alcohol dependence, uncomplicated Status: Acute Assessment and Plan: Patient drinks 750 mL of hard liquor every day -will have to watch for alcohol withdrawal/DTs -continue folic acid and thiamine (5) Pulmonary embolism: Onset Date: 2023 Code(s): I26.99 - Other pulmonary embolism without acute cor pulmonale Status: Acute Assessment and Plan: Patient has a history of pulmonary embolism in 2023 -on Eliquis at home, will continue (6) Anxiety: Code(s): F41.9 - Anxiety disorder, unspecified Status: Chronic Assessment and Plan: Currently intubated and sedated (7) Depression: Qualifiers: Depression Type: unspecified Qualified Code(s): F32.9 - Major depressive disorder, single episode, unspecified Code(s): F32.9 - Major depressive disorder, single episode, unspecified Status: Chronic Assessment and Plan: Currently intubated and sedated (8) Illicit drug use: Code(s): F19.90 - Other psychoactive substance use, unspecified, uncomplicated Status: Acute Assessment and Plan: Patient takes synthetic heroin, opiates, cannabinoids -will watch for withdrawal Plan DVT prophylaxis: Eliquis Stress ulcer prophylaxis: Protonix Nutrition: Tolerating tube Code Status: Full code Critical Care Time Spent: 32 minutes Due to a high probability of clinically significant, life threatening deterioration, the patient required my highest level of preparedness to intervene emergently and I personally spent this critical care time directly and personally managing the patient. This critical care time included obtaining a history; examining the patient; pulse oximetry; ordering and review of studies; arranging urgent treatment with development of a management plan; evaluation of patient's response to treatment; frequent reassessment; and discussions with other providers. It was exclusive of separately billable procedures and treating other patients and teaching time. Please see Assessment and Plan section and the rest of the note for further information on patient assessment and treatment This dictation may have been done utilizing a voice recognition system. Attempts have been made to correct errors. However, there may be uncorrected grammatical, spelling, and recognitions errors present. Subjective Date/time seen: 02/27/25 11:50 Interval history: Reason for consult: Seizures, intubated for airway protection 02/27/2025: Patient seen and examined the ICU, remains intubated on CMV mode of ventilation, peep of 5, 30% FiO2. Sedated with propofol infusion, patient opens her eyes, follows simple commands in all extremities. No seizure activity noted overnight, but had 2 episodes of seizures this morning requiring Ativan and phenobarbital. Urine output has been good, afebrile, hemodynamically stable and tolerating tube feeds Review of Systems Review of Systems: ROS unobtainable: Yes unobtainable due to endotracheal tube and unobtainable due to medical condition Exam Narrative: General: Intubated and sedated in no acute distress HEENT:? Pupils equal and reactive, sclera is clear, ETT in place Neck:? Supple Respiratory:? Clear to auscultation bilaterally, no wheezing, adequate air entry Cardiac:? S1-S2 is normal, reviewed return room Abdomen:? Soft, nontender, nondistended, hypoactive bowel sounds, obese Extremities:? Trace edema bilaterally, palpable pedal pulses Neuro:? Intubated, sedated, opens her eyes, follows simple commands in all extremities Skin:? No lesions noted Psych:? Unable to assess at this time Objective Data Vital Signs Vital Signs: Vital Signs - 24 hr 02/26/25 12:00 02/26/25 12:00 02/26/25 12:00 Temperature 97.9 F Pulse Rate 75 75 Respiratory Rate 18 18 Blood Pressure 105/49 L Pulse Oximetry 98 98 Oxygen Delivery Mechanical Ventilation Fraction of Inspired Oxygen 30 30 02/26/25 12:00 02/26/25 12:00 02/26/25 13:42 Temperature Pulse Rate 74 75 64 Respiratory Rate 18 18 Blood Pressure Pulse Oximetry Oxygen Delivery Fraction of Inspired Oxygen 02/26/25 13:42 02/26/25 14:00 02/26/25 14:00 Temperature 98.2 F Pulse Rate 64 61 61 Respiratory Rate 18 18 18 Blood Pressure 109/55 L Pulse Oximetry 99 Oxygen Delivery Fraction of Inspired Oxygen 02/26/25 14:00 02/26/25 15:20 02/26/25 16:00 Temperature Pulse Rate 61 61 62 Respiratory Rate 18 Blood Pressure Pulse Oximetry 98 99 Oxygen Delivery Mechanical Ventilation Mechanical Ventilation Fraction of Inspired Oxygen 30 30 02/26/25 16:00 02/26/25 16:00 02/26/25 16:00 Temperature 98.2 F Pulse Rate 62 62 Respiratory Rate 18 18 Blood Pressure 109/65 Pulse Oximetry 99 Oxygen Delivery Fraction of Inspired Oxygen 30 02/26/25 16:00 02/26/25 17:04 02/26/25 17:04 Temperature Pulse Rate 62 61 61 Respiratory Rate 18 18 Blood Pressure Pulse Oximetry Oxygen Delivery Fraction of Inspired Oxygen 02/26/25 17:45 02/26/25 18:00 02/26/25 18:00 Temperature Pulse Rate 63 67 67 Respiratory Rate 18 Blood Pressure 103/49 L Pulse Oximetry 98 98 Oxygen Delivery Mechanical Ventilation Fraction of Inspired Oxygen 30 02/26/25 18:00 02/26/25 19:23 02/26/25 20:00 Temperature Pulse Rate 68 66 62 Respiratory Rate 18 18 Blood Pressure Pulse Oximetry 97 Oxygen Delivery Mechanical Ventilation Fraction of Inspired Oxygen 30 02/26/25 20:00 02/26/25 20:00 02/26/25 20:00 Temperature 98.4 F Pulse Rate 62 60 Respiratory Rate 18 18 Blood Pressure 106/56 L Pulse Oximetry 99 99 Oxygen Delivery Mechanical Ventilation Fraction of Inspired Oxygen 30 30 02/26/25 20:00 02/26/25 20:34 02/26/25 20:34 Temperature Pulse Rate 59 L 60 60 Respiratory Rate 18 18 Blood Pressure Pulse Oximetry Oxygen Delivery Fraction of Inspired Oxygen 02/26/25 22:00 02/26/25 22:00 02/26/25 22:00 Temperature Pulse Rate 61 61 61 Respiratory Rate 18 18 Blood Pressure 113/56 L Pulse Oximetry 99 Oxygen Delivery Fraction of Inspired Oxygen 02/26/25 22:36 02/26/25 23:12 02/26/25 23:12 Temperature Pulse Rate 63 68 68 Respiratory Rate 22 H 22 H Blood Pressure Pulse Oximetry 98 Oxygen Delivery Mechanical Ventilation Fraction of Inspired Oxygen 30 02/27/25 00:00 02/27/25 00:00 02/27/25 00:00 Temperature Pulse Rate 64 62 Respiratory Rate 18 Blood Pressure Pulse Oximetry 98 Oxygen Delivery Mechanical Ventilation Fraction of Inspired Oxygen 30 30 02/27/25 00:00 02/27/25 00:01 02/27/25 01:23 Temperature 98.3 F Pulse Rate 62 66 63 Respiratory Rate 18 18 Blood Pressure 111/59 L Pulse Oximetry 98 99 Oxygen Delivery Mechanical Ventilation Fraction of Inspired Oxygen 30 02/27/25 02:00 02/27/25 02:00 02/27/25 02:00 Temperature 97.8 F Pulse Rate 62 62 62 Respiratory Rate 18 18 Blood Pressure 111/60 Pulse Oximetry 99 Oxygen Delivery Fraction of Inspired Oxygen 02/27/25 02:15 02/27/25 02:15 02/27/25 03:35 Temperature Pulse Rate 67 67 60 Respiratory Rate 18 18 18 Blood Pressure Pulse Oximetry 99 Oxygen Delivery Mechanical Ventilation Fraction of Inspired Oxygen 30 02/27/25 03:39 02/27/25 04:00 02/27/25 04:00 Temperature 97.5 F L Pulse Rate 56 L 55 L Respiratory Rate 18 18 Blood Pressure 108/60 Pulse Oximetry 99 Oxygen Delivery Fraction of Inspired Oxygen 30 02/27/25 04:00 02/27/25 05:02 02/27/25 05:04 Temperature Pulse Rate 54 L 53 L 55 L Respiratory Rate 18 Blood Pressure Pulse Oximetry 98 Oxygen Delivery Mechanical Ventilation Fraction of Inspired Oxygen 30 02/27/25 05:04 02/27/25 05:40 02/27/25 06:00 Temperature Pulse Rate 55 L 50 L 55 L Respiratory Rate 18 18 Blood Pressure Pulse Oximetry Oxygen Delivery Fraction of Inspired Oxygen 02/27/25 06:00 02/27/25 06:00 02/27/25 07:35 Temperature 97.4 F L Pulse Rate 55 L 55 L 57 L Respiratory Rate 18 18 18 Blood Pressure 114/65 117/66 Pulse Oximetry 100 98 Oxygen Delivery Fraction of Inspired Oxygen 02/27/25 08:00 02/27/25 08:00 02/27/25 08:15 Temperature Pulse Rate 52 L 52 L 57 L Respiratory Rate 18 18 18 Blood Pressure Pulse Oximetry 100 Oxygen Delivery Mechanical Ventilation Fraction of Inspired Oxygen 30 02/27/25 08:15 02/27/25 08:44 02/27/25 08:54 Temperature Pulse Rate 57 L 63 70 Respiratory Rate 18 18 Blood Pressure Pulse Oximetry 100 Oxygen Delivery Mechanical Ventilation Fraction of Inspired Oxygen 30 02/27/25 09:39 02/27/25 10:00 02/27/25 10:05 Temperature 97.9 F Pulse Rate 89 70 81 Respiratory Rate 17 19 19 Blood Pressure 124/69 Pulse Oximetry 97 Oxygen Delivery Fraction of Inspired Oxygen 02/27/25 10:59 02/27/25 11:03 02/27/25 11:03 Temperature Pulse Rate 66 66 66 Respiratory Rate 17 17 Blood Pressure Pulse Oximetry 98 Oxygen Delivery Mechanical Ventilation Fraction of Inspired Oxygen 30 Intake/Output Intake/Output: Intake & Output 02/24/25 02/25/25 02/26/25 02/27/25 23:59 23:59 23:59 23:59 Intake Total 250 1039.0 3831.9 1685.3 Output Total 200 750 850 Balance 250 839.0 3081.9 835.3 Meds/Results Medications: Active Medications Generic Name Dose Route Start Last Admin Trade Name Freq PRN Reason Stop Dose Admin Apixaban 5 mg 02/25/25 10:25 02/27/25 08:17 Apixaban 5 Mg Tablet PO 5 mg Q12HR SANA Administration Folic Acid 1 mg 02/25/25 09:00 02/27/25 08:18 Folic Acid 1 Mg/0.2 Ml Inj IV PUSH 1 mg QAM SANA Administration Ceftriaxone Sodium 1 gm/ 50 mls @ 100 mls/hr 02/25/25 21:00 02/26/25 20:55 Sodium Chloride IVPB Infused Q24H SANA Infusion Lactated Ringer's 1,000 mls @ 75 mls/hr 02/24/25 21:50 02/27/25 03:40 Lr - Lactated Ringers Iv IV CONT 75 mls/hr .[id number] SANA Administration Propofol 100 mls @ 40.95 mls/hr 02/25/25 17:10 02/27/25 11:03 Diprivan IV CONT 50 mcg/kg/min .Q2H27M SANA 40.95 mls/hr Administration Protocol 50 MCG/KG/MIN Levetiracetam 1,000 mg in 100 mls @ 400 mls/hr 02/27/25 12:00 Keppra Iv IVPB Q6H SANA Valproate Sodium 1,000 mg/ 60 mls @ 57.5 mls/hr 02/27/25 14:00 Dextrose IVPB Q8HR SANA Lorazepam 1 mg 02/24/25 21:49 02/24/25 22:23 Lorazepam Inj (*Crx) 2 Mg/Ml Vial IV PUSH 1 mg Q2H PRN Administration CIWA>8, HR>100, or DBP>100 Lorazepam 2 mg 02/26/25 12:32 02/27/25 09:35 Lorazepam Inj (*Crx) 2 Mg/Ml Vial IV PUSH 2 mg Q2H PRN Administration seizures Multi-Ingred Cream/Lotion/Oil/Oint 1 applic 02/25/25 09:00 02/27/25 08:18 Mineral Oil/White Petrolatum Ointment EACH EYE 1 applic Q12HR SANA Administration Multivitamins/Calcium 1 tablet 02/25/25 09:00 02/27/25 08:18 Therapeutic Multivitamins/Minerals Tab (*Bkc) PO 1 tablet DAILY SANA Administration Ondansetron HCl 4 mg 02/24/25 21:49 02/24/25 22:23 Ondansetron Inj 4 Mg/2 Ml Vial IV PUSH 4 mg Q6H PRN Administration Nausea And Vomiting Pantoprazole Sodium 40 mg 02/25/25 09:00 02/27/25 08:18 Pantoprazole Sodium Iv 40 Mg Vial IV PUSH 40 mg Q12HR SANA Administration Polyethylene Glycol 17 gm 02/28/25 09:00 Polyethylene Glycol 3350 17 Gm Powd.Pack PO QAM SANA Sodium Chloride 10 ml 02/26/25 22:00 02/27/25 05:46 Central Line Flush IV PUSH 10 ml Q8HR SANA Administration Sodium Chloride 20 ml 02/26/25 16:48 Central Line Flush IV PUSH PRN PRN after blood draws Thiamine HCl 100 mg 02/25/25 09:00 02/27/25 08:27 Thiamine Hcl 200 Mg/2 Ml Vial IV PUSH 100 mg QAM SANA Administration Radiology Results: ITS Impressions Head CT 02/24/25 19:31 IMPRESSION: No acute intracranial process. Chest X-Ray 02/27/25 06:57 Impression: 1: Right upper and lower lobe consolidation which may reflect atelectasis and/or pneumonia. 2: Cardiomegaly. Labs Labs: Laboratory Results - last 24 hr 02/26/25 02/26/25 02/26/25 12:56 17:33 23:49 WBC RBC Hgb Hct MCV MCH MCHC RDW Plt Count MPV Immature Gran % (Auto) Neut % (Auto) Lymph % (Auto) [place] % (Auto) Eos % (Auto) Baso % (Auto) Lymph # (Auto) [place] # (Auto) Eos # (Auto) Baso # (Auto) Abs Immat Gran (auto) Absolute Neuts (auto) Absolute Nucleated RBC Nucleated RBC % Puncture Site ABG pH ABG pCO2 ABG pO2 ABG PO2/FiO2 Ratio ABG HCO3 ABG O2 Saturation ABG O2 Content ABG Base Excess A-a Gradient Oxyhemoglobin Carboxyhemoglobin Methemoglobin Reduced Hemoglobin Total Hemoglobin O2 Delivery Device O2 Liters/Min Minute Volume Vent Rate Vent Mode FiO2 Tidal Volume PEEP Peak Inspir Pressure Pressure Support Sodium Potassium Chloride Carbon Dioxide Anion Gap BUN Creatinine Estim Creat Clear Calc Estimated GFR Glucose POC Capillary Glucose 93 90 102 Lactic Acid Calcium Phosphorus Magnesium Total Bilirubin AST ALT Alkaline Phosphatase Total Protein Albumin Triglycerides Lipase 02/27/25 02/27/25 02/27/25 04:41 04:48 11:19 WBC 3.7 L RBC 3.37 L Hgb 8.7 L Hct 28.3 L MCV 84.0 MCH 25.8 L MCHC 30.7 L RDW 18.7 H Plt Count 168 MPV 9.8 Immature Gran % (Auto) 0.5 Neut % (Auto) 53.2 Lymph % (Auto) 33.8 [place] % (Auto) 10.1 H Eos % (Auto) 1.9 Baso % (Auto) 0.5 Lymph # (Auto) 1.24 [place] # (Auto) 0.4 Eos # (Auto) 0.1 Baso # (Auto) 0.0 Abs Immat Gran (auto) 0.02 Absolute Neuts (auto) 2.0 Absolute Nucleated RBC 0.000 Nucleated RBC % 0.0 Puncture Site Right radial ABG pH 7.484 H ABG pCO2 34.5 L ABG pO2 101.1 H ABG PO2/FiO2 Ratio 3.37 ABG HCO3 25.3 ABG O2 Saturation 98.0 ABG O2 Content 13.3 L ABG Base Excess 2.0 A-a Gradient 72.3 Oxyhemoglobin 97.1 Carboxyhemoglobin 0.6 Methemoglobin 0.0 Reduced Hemoglobin 2.3 Total Hemoglobin 9.6 L O2 Delivery Device Ventilator O2 Liters/Min Not Reportable Minute Volume Not Reportable Vent Rate 18 Vent Mode Cmv FiO2 30 Tidal Volume 400 PEEP 5 Peak Inspir Pressure Not Reportable Pressure Support Not Reportable Sodium 137 Potassium 3.6 Chloride 107 Carbon Dioxide 26 Anion Gap 4 BUN 10 Creatinine 0.55 L Estim Creat Clear Calc 177 Estimated GFR > 60 Glucose 86 POC Capillary Glucose 87 Lactic Acid 0.8 Calcium 8.4 Phosphorus 3.8 Magnesium 2.0 Total Bilirubin < 0.1 L AST 19 ALT 16 Alkaline Phosphatase 95 Total Protein 5.4 L Albumin 3.0 L Triglycerides 130 Lipase 64 Quality VTE Prophylaxis VTE prophylaxis: pharmacologic ordered
[2025-02-27] MEDS: VALPROATE SODIUM INJ 1,000 MG in DEXTROSE 5% IN WATER 50 ML 57.5 MG IVPB ×2 (13:47→21:20)
[2025-02-27] MEDS: cefTRIAXone 1 GM in SODIUM CHLORIDE 0.9% IV 50 ML 100 ML IVPB (20:16)
[2025-02-28] VITALS (41 sets, daily range): BP systolic 107–120; BP diastolic 50–92; PULSE 53–109; RESP 16–19; TEMP 36–37.3; O2SAT 96–100
[2025-02-28] MEDS: levETIRAcetam 1000MG/NACL100ML 1,000 MG/100 ML BAG 400 MG IVPB ×5 (00:01→23:58)
[2025-02-28] MEDS: PROPOFOL IV EMULSION 100 ML 40.95 MG IV CONT ×8 (01:13→22:00)
[2025-02-28 04:27] LABS: Hematocrit 27.4 % (37.0-47.0); Hemoglobin 8.4 g/dL (12.0-15.0); Immature Granulocyte Percent A 0.8 % (0-0.5); Lymphocytes Absolute Auto 0.99 K/mm3 (0.9-3.2); Mean Corpuscular HGB Conc 30.7 g/dl (32-36); Mean Corpuscular Hemoglobin 25.9 pg (26-34); Mean Corpuscular Volume 84.6 fl (80-100); Nucleated Red Blood Cells Absolute Auto 0.000 K/mm3 (0.0-0.012); Nucleated Red Blood Cells Perc 0.0 % (0.0-0.2); Platelet Count Result 170 k/mm3 (150-375); Red Blood Count 3.24 M/mm3 (4.2-5.4); White Blood Count 3.7 K/mm3 (4.5-10.0)
[2025-02-28 04:47] LABS: Alanine Aminotransferase 12 U/L (6-35); Albumin Level 2.9 g/dL (3.5-5.1); Alkaline Phosphatase 86 U/L (38-126); Anion Gap 4 mmol/L (4-12); Aspartate Amino Transferase 16 U/L (14-36); Bilirubin,Total < 0.1 mg/dL (0.2-1.3); Blood Urea Nitrogen 11 mg/dL (7-17); Calcium 8.2 mg/dL (8.4-10.2); Carbon Dioxide 26 mmol/L (22-30); Chloride 108 mmol/L (98-107); Estimated CRCL calculation 186 ml/min; Estimated Glomerular Filt Rate > 60; Glucose 83 mg/dL (65-110); Magnesium 2.1 mg/dL (1.6-2.3); Potassium 3.7 mmol/L (3.4-5.0); Sodium 138 mmol/L (137-145); Total Protein 5.3 g/dL (6.3-8.2)
[2025-02-28 05:11] LABS: Alveolar/Arterial O2 Gradient 79.7 mmHg; Carboxyhemoglobin 0.5 % THb (0-2.0); Fractional Inspired Oxygen 30 %; HCO3 ABG 27.4 mEq/l (22.0-26.0); Methemoglobin ABG 0.0 %THb (0-1.5); Oxygen Content ABG 13.0 %vol (16.0-22.0); Oxygen Saturation ABG 97.5 % (95.0-100.0); PCO2 ABG 37.2 mmHg (35.0-45.0); PO2 ABG 90.5 mmHg (80.0-100.0); PO2 FiO2 Ratio Arterial Blood 3.02 %; Reduced Hemoglobin 3.4 %THb (0-5.0)
[2025-02-28 05:14] LABS: Modified Allen's Test Pass; Site Drawn LEFT RADIAL
[2025-02-28 05:15] LABS: Arterial Blood Gas Tidal Volume 400 ml; Arterial Blood Gas Ventilator rate 16 /MIN
[2025-02-28] MEDS: VALPROATE SODIUM INJ 1,000 MG in DEXTROSE 5% IN WATER 50 ML 57.5 MG IVPB ×4 (05:15→22:20)
[2025-02-28] MEDS: CENTRAL LINE FLUSH 10 ML IV PUSH ×3 (05:16→22:20)
[2025-02-28] MEDS: FOLIC ACID 1 MG/0.2 ML INJ IV PUSH (08:55)
[2025-02-28] MEDS: APIXABAN 5 MG TABLET PO ×2 (08:56→21:00)
[2025-02-28] MEDS: PANTOPRAZOLE SODIUM IV 40 MG VIAL IV PUSH ×2 (08:56→21:00)
[2025-02-28] MEDS: THIAMINE HCL 200 MG/2 ML VIAL 100 MG IV PUSH (08:56)
[2025-02-28] MEDS: THERAPEUTIC MULTIVITAMINS/MINERALS TAB (*BKC) 1 TABLET PO (08:56)
[2025-02-28] MEDS: MINERAL OIL/WHITE PETROLATUM OINTMENT 1 APPLIC EACH EYE ×2 (08:56→21:00)
[2025-02-28] MEDS: LACTATED RINGERS 1,000 ML 75 ML IV CONT (08:59)
[2025-02-28] MEDS: PROPOFOL IV EMULSION 100 ML 24.57 MG IV CONT (10:41)
--- NOTE | 2025-02-28 10:42 | WPDINTPN ---
Progress Note: A&P Assessment and Plan (1) Seizure disorder: Code(s): G40.909 - Epilepsy, unspecified, not intractable, without status epilepticus Status: Chronic Assessment and Plan: 02/24: Patient was found by police having seizures in her car, upon EMS arrival patient received Versed IV, she also received multiple doses of Ativan in the ER. Patient presented with multiple seizure activity. Was admitted to IMU a she had seizure activity for approximately 24 minute, patient was intubated as she was given multiple doses of IV Versed, IV Ativan,, diazepam propofol. -valproic level is on admission was significantly low, -lamotrigine and levetiracetam levels pending -discussed with Neurology, increased Keppra to 1 g q.6 hours and valproic acid to 750 mg Q 8 hours -patient was also given 1 dose of phenobarbital 260 mg IV x1, if the seizures are associated with alcohol withdrawal, given long half life of phenobarbital -appreciate Neurology evaluation and recommendations -02/26: EEG: this is a normal EEG obtained during awake and Drowsy states (2) Acute hypoxic respiratory failure: Code(s): J96.01 - Acute respiratory failure with hypoxia Status: Acute Assessment and Plan: Patient was intubated for airway protection secondary to prolonged seizure activity -currently on CMV mode of ventilation, peep of 5, 30% FiO2 -chest x-ray and ABGs reviewed, ventilator adjusted, will wean FiO2 to maintain O2 sats > 92 per -sedated with propofol infusion, I have asked the bedside RN to wean sedation, so I can try to place her on SBT, and evaluate for extubation (3) Nausea vomiting and diarrhea: Code(s): R11.2 - Nausea with vomiting, unspecified; R19.7 - Diarrhea, unspecified Status: Acute Assessment and Plan: Patient presented with nausea and vomiting also -continue Zofran PRN (4) Alcoholism: Code(s): F10.20 - Alcohol dependence, uncomplicated Status: Acute Assessment and Plan: Patient drinks 750 mL of hard liquor every day -will have to watch for alcohol withdrawal/DTs -continue folic acid and thiamine (5) Pulmonary embolism: Onset Date: 2023 Code(s): I26.99 - Other pulmonary embolism without acute cor pulmonale Status: Acute Assessment and Plan: Patient has a history of pulmonary embolism in 2023 -on Eliquis at home, will continue (6) Anxiety: Code(s): F41.9 - Anxiety disorder, unspecified Status: Chronic Assessment and Plan: Currently intubated and sedated (7) Depression: Qualifiers: Depression Type: unspecified Qualified Code(s): F32.9 - Major depressive disorder, single episode, unspecified Code(s): F32.9 - Major depressive disorder, single episode, unspecified Status: Chronic Assessment and Plan: Currently intubated and sedated (8) Illicit drug use: Code(s): F19.90 - Other psychoactive substance use, unspecified, uncomplicated Status: Acute Assessment and Plan: Patient takes synthetic heroin, opiates, cannabinoids -will watch for withdrawal Plan DVT prophylaxis: Eliquis Stress ulcer prophylaxis: Protonix Nutrition: Tolerating tube Code Status: Full code Critical Care Time Spent: 32 minutes Due to a high probability of clinically significant, life threatening deterioration, the patient required my highest level of preparedness to intervene emergently and I personally spent this critical care time directly and personally managing the patient. This critical care time included obtaining a history; examining the patient; pulse oximetry; ordering and review of studies; arranging urgent treatment with development of a management plan; evaluation of patient's response to treatment; frequent reassessment; and discussions with other providers. It was exclusive of separately billable procedures and treating other patients and teaching time. Please see Assessment and Plan section and the rest of the note for further information on patient assessment and treatment This dictation may have been done utilizing a voice recognition system. Attempts have been made to correct errors. However, there may be uncorrected grammatical, spelling, and recognitions errors present. Subjective Date/time seen: 02/28/25 10:42 Interval history: Reason for consult: Seizures, intubated for airway protection 02/28/2025: Patient seen and examined the ICU, remains intubated on CMV mode of ventilation, peep of 5, 30% FiO2. Sedated with propofol infusion, patient opens her eyes, follows simple commands in all extremities. No seizure activity noted overnight. Urine output has been good, afebrile, hemodynamically stable and tolerating tube feeds Review of Systems Review of Systems: ROS unobtainable: Yes unobtainable due to endotracheal tube and unobtainable due to medical condition Exam Narrative: General: Intubated and sedated in no acute distress HEENT:? Pupils equal and reactive, sclera is clear, ETT in place Neck:? Supple Respiratory:? Clear to auscultation bilaterally, no wheezing, adequate air entry Cardiac:? S1-S2 is normal, reviewed return room Abdomen:? Soft, nontender, nondistended, hypoactive bowel sounds, obese Extremities:? Trace edema bilaterally, palpable pedal pulses Neuro:? Intubated, sedated, opens her eyes, follows simple commands in all extremities Skin:? No lesions noted Psych:? Unable to assess at this time Objective Data Vital Signs Vital Signs: Vital Signs - 24 hr 02/27/25 10:59 02/27/25 11:03 02/27/25 11:03 Temperature Pulse Rate 66 66 66 Respiratory Rate 17 17 Blood Pressure Pulse Oximetry 98 Oxygen Delivery Mechanical Ventilation Fraction of Inspired Oxygen 30 02/27/25 12:00 02/27/25 12:00 02/27/25 12:00 Temperature 97.5 F L Pulse Rate 57 L 58 L 58 L Respiratory Rate 18 18 16 Blood Pressure 117/63 Pulse Oximetry 99 99 Oxygen Delivery Mechanical Ventilation Fraction of Inspired Oxygen 30 02/27/25 12:00 02/27/25 12:00 02/27/25 13:09 Temperature Pulse Rate 54 L 57 L Respiratory Rate 16 Blood Pressure Pulse Oximetry Oxygen Delivery Fraction of Inspired Oxygen 30 02/27/25 13:09 02/27/25 14:00 02/27/25 14:00 Temperature 97.4 F L Pulse Rate 57 L 56 L 56 L Respiratory Rate 16 16 16 Blood Pressure 114/55 L Pulse Oximetry 98 Oxygen Delivery Fraction of Inspired Oxygen 02/27/25 14:00 02/27/25 14:10 02/27/25 15:36 Temperature Pulse Rate 56 L 54 L 60 Respiratory Rate 16 Blood Pressure Pulse Oximetry 99 Oxygen Delivery Mechanical Ventilation Fraction of Inspired Oxygen 30 02/27/25 15:36 02/27/25 16:00 02/27/25 16:00 Temperature 97.3 F L Pulse Rate 60 59 L Respiratory Rate 16 18 Blood Pressure 114/58 L Pulse Oximetry 100 Oxygen Delivery Fraction of Inspired Oxygen 30 02/27/25 16:00 02/27/25 16:00 02/27/25 17:28 Temperature Pulse Rate 63 63 53 L Respiratory Rate 16 16 Blood Pressure Pulse Oximetry 99 100 Oxygen Delivery Mechanical Ventilation Mechanical Ventilation Fraction of Inspired Oxygen 30 30 02/27/25 17:59 02/27/25 17:59 02/27/25 18:00 Temperature Pulse Rate 68 68 66 Respiratory Rate 17 17 16 Blood Pressure Pulse Oximetry Oxygen Delivery Fraction of Inspired Oxygen 02/27/25 18:00 02/27/25 18:00 02/27/25 19:35 Temperature 97.1 F L Pulse Rate 66 66 59 L Respiratory Rate 16 Blood Pressure 119/55 L Pulse Oximetry 97 98 Oxygen Delivery Mechanical Ventilation Fraction of Inspired Oxygen 30 02/27/25 20:00 02/27/25 20:00 02/27/25 20:00 Temperature 97.4 F L Pulse Rate 57 L 57 L 57 L Respiratory Rate 17 17 17 Blood Pressure 114/53 L Pulse Oximetry 100 Oxygen Delivery Fraction of Inspired Oxygen 02/27/25 20:00 02/27/25 20:00 02/27/25 20:00 Temperature Pulse Rate 57 L 60 Respiratory Rate 17 Blood Pressure Pulse Oximetry 100 Oxygen Delivery Mechanical Ventilation Fraction of Inspired Oxygen 30 30 02/27/25 22:00 02/27/25 22:00 02/27/25 22:00 Temperature 97.1 F L Pulse Rate 60 60 60 Respiratory Rate 16 17 Blood Pressure 111/54 L Pulse Oximetry 100 Oxygen Delivery Fraction of Inspired Oxygen 02/27/25 22:27 02/27/25 22:45 02/27/25 23:22 Temperature Pulse Rate 60 60 59 L Respiratory Rate 16 16 Blood Pressure Pulse Oximetry 98 Oxygen Delivery Mechanical Ventilation Fraction of Inspired Oxygen 30 02/28/25 00:00 02/28/25 00:00 02/28/25 00:00 Temperature 97.1 F L Pulse Rate 56 L 56 L 56 L Respiratory Rate 16 16 16 Blood Pressure 111/55 L Pulse Oximetry 99 100 Oxygen Delivery Mechanical Ventilation Fraction of Inspired Oxygen 30 02/28/25 00:00 02/28/25 00:00 02/28/25 01:12 Temperature Pulse Rate 53 L 53 L Respiratory Rate 16 Blood Pressure Pulse Oximetry Oxygen Delivery Fraction of Inspired Oxygen 30 02/28/25 01:13 02/28/25 02:00 02/28/25 02:00 Temperature 96.9 F L Pulse Rate 53 L 57 L 56 L Respiratory Rate 16 16 Blood Pressure 116/54 L Pulse Oximetry 97 Oxygen Delivery Fraction of Inspired Oxygen 02/28/25 02:00 02/28/25 02:00 02/28/25 04:00 Temperature Pulse Rate 56 L 56 L 56 L Respiratory Rate 16 16 Blood Pressure Pulse Oximetry 97 100 Oxygen Delivery Mechanical Ventilation Mechanical Ventilation Fraction of Inspired Oxygen 30 30 02/28/25 04:00 02/28/25 04:00 02/28/25 04:00 Temperature Pulse Rate 55 L 55 L Respiratory Rate 16 16 Blood Pressure Pulse Oximetry Oxygen Delivery Fraction of Inspired Oxygen 30 02/28/25 04:00 02/28/25 04:01 02/28/25 05:17 Temperature 96.8 F L Pulse Rate 53 L 54 L 53 L Respiratory Rate 17 Blood Pressure 116/53 L Pulse Oximetry 100 100 Oxygen Delivery Mechanical Ventilation Fraction of Inspired Oxygen 30 02/28/25 06:00 02/28/25 06:00 02/28/25 06:00 Temperature 97 F L Pulse Rate 72 72 64 Respiratory Rate 16 16 Blood Pressure 110/92 H Pulse Oximetry 100 Oxygen Delivery Fraction of Inspired Oxygen 02/28/25 06:00 02/28/25 07:37 02/28/25 07:58 Temperature 97 F L Pulse Rate 64 53 L 62 Respiratory Rate 16 18 Blood Pressure 114/56 L Pulse Oximetry 100 100 Oxygen Delivery Mechanical Ventilation Fraction of Inspired Oxygen 30 02/28/25 08:00 02/28/25 08:00 02/28/25 08:00 Temperature Pulse Rate 61 Respiratory Rate Blood Pressure Pulse Oximetry 100 Oxygen Delivery Mechanical Ventilation Fraction of Inspired Oxygen 30 30 02/28/25 08:10 02/28/25 08:10 02/28/25 10:00 Temperature 97.4 F L Pulse Rate 59 L 59 L 82 Respiratory Rate 16 16 19 Blood Pressure 107/67 Pulse Oximetry 99 Oxygen Delivery Fraction of Inspired Oxygen 02/28/25 10:00 02/28/25 10:00 02/28/25 10:15 Temperature Pulse Rate 81 77 83 Respiratory Rate 16 16 Blood Pressure Pulse Oximetry Oxygen Delivery Fraction of Inspired Oxygen 02/28/25 10:25 Temperature Pulse Rate 81 Respiratory Rate 16 Blood Pressure Pulse Oximetry Oxygen Delivery Fraction of Inspired Oxygen Intake/Output Intake/Output: Intake & Output 02/25/25 02/26/25 02/27/25 02/28/25 23:59 23:59 23:59 23:59 Intake Total 1039.0 3831.9 3924.5 2188.4 Output Total 227 656 5754 1125 Balance 839.0 3081.9 1724.5 1063.4 Meds/Results Medications: Active Medications Generic Name Dose Route Start Last Admin Trade Name Freq PRN Reason Stop Dose Admin Apixaban 5 mg 02/25/25 10:25 02/28/25 08:56 Apixaban 5 Mg Tablet PO 5 mg Q12HR SANA Administration Folic Acid 1 mg 02/25/25 09:00 02/28/25 08:55 Folic Acid 1 Mg/0.2 Ml Inj IV PUSH 1 mg QAM SANA Administration Ceftriaxone Sodium 1 gm/ 50 mls @ 100 mls/hr 02/25/25 21:00 02/27/25 21:00 Sodium Chloride IVPB Infused Q24H SANA Infusion Lactated Ringer's 1,000 mls @ 75 mls/hr 02/24/25 21:50 02/28/25 08:59 Lr - Lactated Ringers Iv IV CONT 75 mls/hr .[id number] SANA Administration Propofol 100 mls @ 28.665 mls/hr 02/25/25 17:10 02/28/25 10:25 Diprivan IV CONT 35 mcg/kg/min .Q3H30M SANA 28.67 mls/hr Titration Protocol 35 MCG/KG/MIN Levetiracetam 1,000 mg in 100 mls @ 400 mls/hr 02/27/25 12:00 02/28/25 05:40 Keppra Iv IVPB Infused Q6H SANA Infusion Valproate Sodium 1,000 mg/ 60 mls @ 57.5 mls/hr 02/27/25 14:00 02/28/25 06:19 Dextrose IVPB Infused Q8HR SANA Infusion Lorazepam 1 mg 02/24/25 21:49 02/24/25 22:23 Lorazepam Inj (*Crx) 2 Mg/Ml Vial IV PUSH 1 mg Q2H PRN Administration CIWA>8, HR>100, or DBP>100 Lorazepam 2 mg 02/26/25 12:32 02/27/25 09:35 Lorazepam Inj (*Crx) 2 Mg/Ml Vial IV PUSH 2 mg Q2H PRN Administration seizures Multi-Ingred Cream/Lotion/Oil/Oint 1 applic 02/25/25 09:00 02/28/25 08:56 Mineral Oil/White Petrolatum Ointment EACH EYE 1 applic Q12HR SANA Administration Multivitamins/Calcium 1 tablet 02/25/25 09:00 02/28/25 08:56 Therapeutic Multivitamins/Minerals Tab (*Bkc) PO 1 tablet DAILY SANA Administration Ondansetron HCl 4 mg 02/24/25 21:49 02/24/25 22:23 Ondansetron Inj 4 Mg/2 Ml Vial IV PUSH 4 mg Q6H PRN Administration Nausea And Vomiting Pantoprazole Sodium 40 mg 02/25/25 09:00 02/28/25 08:56 Pantoprazole Sodium Iv 40 Mg Vial IV PUSH 40 mg Q12HR SANA Administration Polyethylene Glycol 17 gm 02/28/25 09:00 02/28/25 08:55 Polyethylene Glycol 3350 17 Gm Powd.Pack PO 17 gm QAM SANA Administration Sodium Chloride 10 ml 02/26/25 22:00 02/28/25 05:16 Central Line Flush IV PUSH 10 ml Q8HR SANA Administration Sodium Chloride 20 ml 02/26/25 16:48 Central Line Flush IV PUSH PRN PRN after blood draws Thiamine HCl 100 mg 02/25/25 09:00 02/28/25 08:56 Thiamine Hcl 200 Mg/2 Ml Vial IV PUSH 100 mg QAM SANA Administration Radiology Results: ITS Impressions Head CT 02/24/25 19:31 IMPRESSION: No acute intracranial process. Chest X-Ray 02/28/25 06:01 Impression: 1: Stable chest. No significant interval change. Labs Labs: Laboratory Results - last 24 hr 02/24/25 02/27/25 02/27/25 20:33 11:19 17:24 WBC RBC Hgb Hct MCV MCH MCHC RDW Plt Count MPV Immature Gran % (Auto) Neut % (Auto) Lymph % (Auto) [place] % (Auto) Eos % (Auto) Baso % (Auto) Lymph # (Auto) [place] # (Auto) Eos # (Auto) Baso # (Auto) Abs Immat Gran (auto) Absolute Neuts (auto) Absolute Nucleated RBC Nucleated RBC % Puncture Site ABG pH ABG pCO2 ABG pO2 ABG PO2/FiO2 Ratio ABG HCO3 ABG O2 Saturation ABG O2 Content ABG Base Excess A-a Gradient Oxyhemoglobin Carboxyhemoglobin Methemoglobin Reduced Hemoglobin Total Hemoglobin O2 Delivery Device O2 Liters/Min Minute Volume Vent Rate Vent Mode FiO2 Tidal Volume PEEP Peak Inspir Pressure Pressure Support Sodium Potassium Chloride Carbon Dioxide Anion Gap BUN Creatinine Estim Creat Clear Calc Estimated GFR Glucose POC Capillary Glucose 87 85 Calcium Phosphorus Magnesium Total Bilirubin AST ALT Alkaline Phosphatase Total Protein Albumin Levetiracetam 18.6 02/27/25 02/28/25 02/28/25 23:53 04:15 05:01 WBC 3.7 L RBC 3.24 L Hgb 8.4 L Hct 27.4 L MCV 84.6 MCH 25.9 L MCHC 30.7 L RDW 18.8 H Plt Count 170 MPV 9.9 Immature Gran % (Auto) 0.8 H Neut % (Auto) 59.9 Lymph % (Auto) 27.0 [place] % (Auto) 9.3 H Eos % (Auto) 2.5 Baso % (Auto) 0.5 Lymph # (Auto) 0.99 [place] # (Auto) 0.3 Eos # (Auto) 0.1 Baso # (Auto) 0.0 Abs Immat Gran (auto) 0.03 Absolute Neuts (auto) 2.2 Absolute Nucleated RBC 0.000 Nucleated RBC % 0.0 Puncture Site Left radial ABG pH 7.485 H ABG pCO2 37.2 ABG pO2 90.5 ABG PO2/FiO2 Ratio 3.02 ABG HCO3 27.4 H ABG O2 Saturation 97.5 ABG O2 Content 13.0 L ABG Base Excess 3.8 A-a Gradient 79.7 Oxyhemoglobin 96.1 Carboxyhemoglobin 0.5 Methemoglobin 0.0 Reduced Hemoglobin 3.4 Total Hemoglobin 9.5 L O2 Delivery Device Ventilator O2 Liters/Min Not Reportable Minute Volume Not Reportable Vent Rate 16 Vent Mode Cmv FiO2 30 Tidal Volume 400 PEEP 5 Peak Inspir Pressure Not Reportable Pressure Support Not Reportable Sodium 138 Potassium 3.7 Chloride 108 H Carbon Dioxide 26 Anion Gap 4 BUN 11 Creatinine 0.52 L Estim Creat Clear Calc 186 Estimated GFR > 60 Glucose 83 POC Capillary Glucose 75 Calcium 8.2 L Phosphorus 4.4 Magnesium 2.1 Total Bilirubin < 0.1 L AST 16 ALT 12 Alkaline Phosphatase 86 Total Protein 5.3 L Albumin 2.9 L Levetiracetam Quality VTE Prophylaxis VTE prophylaxis: pharmacologic ordered
--- NOTE | 2025-02-28 10:46 | PCNFU ---
Nutrition Follow-Up Complete: Suboptimal Energy Intake as related to mechanical vent as evidenced by NPO/TF Meet estimated nutritional needs. - Goal being met with tube feeding Goal: Pt current nutrition is Vital HP @ 30 ml/h with Prosource TF protein modular BID. Nutrition recommendation: No new recommendations. COntinue current nutrition care plan and orders. Agree with orders Last recorded weight is 137 kg. Bowel Motility: Last BM 02/20. Miralax added for bowel regimen Labs Reviewed: Hgb 8.4, Hct 27.4, Alb 2.9, Cre 0.52 Meds Noted: LR, Miralax, Protonix, Thiamine, Keppra, folic acid, propofol @ 40.95 ml/h= 1081 kcal Skin: WNL Additional Notes: Vital HP 2 30 ml/h with Prosource TF BID provides 850 kcal, 98 g protein, 552 ml free water. Total kcal with Prosource 1989 kcal/day. 14 kcal/kg, 0.7 g protein/kg ABW. Not adequate for needs. Will titrate up when propofol decreases. Will monitor weight, labs, skin, diet orders, meds every Monday and Monday.
[2025-02-28] MEDS: LORazepam INJ (*CRX) 2 MG/ML VIAL IV PUSH (13:12)
--- NOTE | 2025-02-28 13:20 | PC.NURSE ---
Patient on breathing trial 8/5 30% FiO2 at 1309 tolerating well and following commands. Patient began to have a seizure at 1310, 2mg IV push Ativan given at 1312, made aware and orders to restart propofol gtt and place patient back on full ventilatory support. Seizure lasted from 1310 until 1316.
[2025-02-28] MEDS: cefTRIAXone 1 GM in SODIUM CHLORIDE 0.9% IV 50 ML 100 ML IVPB (21:00)
[2025-03-01] VITALS (37 sets, daily range): BP systolic 114–158; BP diastolic 54–97; PULSE 5–96; RESP 15–25; TEMP 36.8–37.9; O2SAT 94–100
[2025-03-01] MEDS: LACTATED RINGERS 1,000 ML 75 ML IV CONT (01:30)
[2025-03-01] MEDS: PROPOFOL IV EMULSION 100 ML 32.76 MG IV CONT ×2 (02:00→04:00)
[2025-03-01] MEDS: VALPROATE SODIUM INJ 1,000 MG in DEXTROSE 5% IN WATER 50 ML 57.5 MG IVPB ×6 (02:28→21:16)
[2025-03-01 04:59] LABS: Alveolar/Arterial O2 Gradient 82.3 mmHg; Carboxyhemoglobin 0.6 % THb (0-2.0); Fractional Inspired Oxygen 30 %; HCO3 ABG 26.3 mEq/l (22.0-26.0); Methemoglobin ABG 0.3 %THb (0-1.5); Oxygen Content ABG 13.1 %vol (16.0-22.0); Oxygen Saturation ABG 96.9 % (95.0-100.0); PCO2 ABG 38.6 mmHg (35.0-45.0); PO2 ABG 86.2 mmHg (80.0-100.0); PO2 FiO2 Ratio Arterial Blood 2.87 %; Reduced Hemoglobin 4.3 %THb (0-5.0)
[2025-03-01 05:01] LABS: Arterial Blood Gas Ventilator rate 16 /MIN; Modified Allen's Test Pass; Site Drawn RIGHT RADIAL
[2025-03-01 05:02] LABS: Arterial Blood Gas Tidal Volume 400 ml
[2025-03-01 05:29] LABS: Hematocrit 28.1 % (37.0-47.0); Hemoglobin 8.6 g/dL (12.0-15.0); Immature Granulocyte Percent A 0.7 % (0-0.5); Lymphocytes Absolute Auto 0.94 K/mm3 (0.9-3.2); Mean Corpuscular HGB Conc 30.6 g/dl (32-36); Mean Corpuscular Hemoglobin 26.0 pg (26-34); Mean Corpuscular Volume 84.9 fl (80-100); Nucleated Red Blood Cells Absolute Auto 0.000 K/mm3 (0.0-0.012); Nucleated Red Blood Cells Perc 0.0 % (0.0-0.2); Platelet Count Result 202 k/mm3 (150-375); Red Blood Count 3.31 M/mm3 (4.2-5.4); White Blood Count 4.2 K/mm3 (4.5-10.0)
[2025-03-01 05:52] LABS: Alanine Aminotransferase 10 U/L (6-35); Albumin Level 3.0 g/dL (3.5-5.1); Alkaline Phosphatase 80 U/L (38-126); Anion Gap 5 mmol/L (4-12); Aspartate Amino Transferase 20 U/L (14-36); Bilirubin,Total < 0.1 mg/dL (0.2-1.3); Blood Urea Nitrogen 9 mg/dL (7-17); Calcium 8.3 mg/dL (8.4-10.2); Carbon Dioxide 26 mmol/L (22-30); Chloride 107 mmol/L (98-107); Estimated CRCL calculation 171 ml/min; Estimated Glomerular Filt Rate > 60; Glucose 85 mg/dL (65-110); Magnesium 2.1 mg/dL (1.6-2.3); Potassium 4.1 mmol/L (3.4-5.0); Sodium 138 mmol/L (137-145); Total Protein 5.6 g/dL (6.3-8.2); Triglycerides 100 mg/dL (<150)
[2025-03-01] MEDS: PROPOFOL IV EMULSION 100 ML 36.86 MG IV CONT ×3 (06:00→08:42)
[2025-03-01] MEDS: levETIRAcetam 1000MG/NACL100ML 1,000 MG/100 ML BAG 400 MG IVPB ×4 (06:23→23:34)
[2025-03-01] MEDS: CENTRAL LINE FLUSH 10 ML IV PUSH ×3 (06:23→21:17)
[2025-03-01] MEDS: PANTOPRAZOLE SODIUM IV 40 MG VIAL IV PUSH ×2 (08:40→20:09)
[2025-03-01] MEDS: APIXABAN 5 MG TABLET PO ×2 (08:41→20:09)
[2025-03-01] MEDS: THERAPEUTIC MULTIVITAMINS/MINERALS TAB (*BKC) 1 TABLET PO (08:41)
[2025-03-01] MEDS: THIAMINE HCL 200 MG/2 ML VIAL 100 MG IV PUSH (08:41)
[2025-03-01] MEDS: FOLIC ACID 1 MG/0.2 ML INJ IV PUSH (08:41)
[2025-03-01] MEDS: MINERAL OIL/WHITE PETROLATUM OINTMENT 1 APPLIC EACH EYE ×2 (08:41→20:09)
--- NOTE | 2025-03-01 08:49 | P.PNINT_ITS ---
Progress Note: A&P Assessment and Plan (1) Seizure disorder: Code(s): G40.909 - Epilepsy, unspecified, not intractable, without status epilepticus Status: Chronic Assessment and Plan: 02/24: Patient was found by police having seizures in her car, upon EMS arrival patient received Versed IV, she also received multiple doses of Ativan in the ER. Patient presented with multiple seizure activity. Was admitted to IMU a she had seizure activity for approximately 24 minute, patient was intubated as she was given multiple doses of IV Versed, IV Ativan,, diazepam propofol. -valproic level is on admission was significantly low, -lamotrigine and levetiracetam levels pending -discussed with Neurology, increased Keppra to 1 g q.6 hours and valproic acid to 100 mg Q 8 hours -patient was also given 1 dose of phenobarbital 260 mg IV x1, if the seizures are associated with alcohol withdrawal, given long half life of phenobarbital -appreciate Neurology evaluation and recommendations -02/26: EEG: this is a normal EEG obtained during awake and Drowsy states (2) Acute hypoxic respiratory failure: Code(s): J96.01 - Acute respiratory failure with hypoxia Status: Acute Assessment and Plan: Patient was intubated for airway protection secondary to prolonged seizure activity -currently on CMV mode of ventilation, peep of 5, 30% FiO2 -chest x-ray and ABGs reviewed, ventilator adjusted, will wean FiO2 to maintain O2 sats > 92 per -sedated with propofol infusion, I have asked the bedside RN to wean sedation, and start Precedex infusion so I can try to place her on SBT, and evaluate for extubation (3) Nausea vomiting and diarrhea: Code(s): R11.2 - Nausea with vomiting, unspecified; R19.7 - Diarrhea, unspecified Status: Acute Assessment and Plan: Patient presented with nausea and vomiting also -continue Zofran PRN (4) Alcoholism: Code(s): F10.20 - Alcohol dependence, uncomplicated Status: Acute Assessment and Plan: Patient drinks 750 mL of hard liquor every day -will have to watch for alcohol withdrawal/DTs -continue folic acid and thiamine (5) Pulmonary embolism: Onset Date: 2023 Code(s): I26.99 - Other pulmonary embolism without acute cor pulmonale Status: Acute Assessment and Plan: Patient has a history of pulmonary embolism in 2023 -on Eliquis at home, will continue (6) Anxiety: Code(s): F41.9 - Anxiety disorder, unspecified Status: Chronic Assessment and Plan: Currently intubated and sedated (7) Depression: Qualifiers: Depression Type: unspecified Qualified Code(s): F32.9 - Major depressive disorder, single episode, unspecified Code(s): F32.9 - Major depressive disorder, single episode, unspecified Status: Chronic Assessment and Plan: Currently intubated and sedated (8) Illicit drug use: Code(s): F19.90 - Other psychoactive substance use, unspecified, uncomplicated Status: Acute Assessment and Plan: Patient takes synthetic heroin, opiates, cannabinoids -will watch for withdrawal Plan DVT prophylaxis: Eliquis Stress ulcer prophylaxis: Protonix Nutrition: Tolerating tube Code Status: Full code Critical Care Time Spent: 32 minutes Due to a high probability of clinically significant, life threatening deterioration, the patient required my highest level of preparedness to intervene emergently and I personally spent this critical care time directly and personally managing the patient. This critical care time included obtaining a history; examining the patient; pulse oximetry; ordering and review of studies; arranging urgent treatment with development of a management plan; evaluation of patient's response to treatment; frequent reassessment; and discussions with other providers. It was exclusive of separately billable procedures and treating other patients and teaching time. Please see Assessment and Plan section and the rest of the note for further information on patient assessment and treatment This dictation may have been done utilizing a voice recognition system. Attempts have been made to correct errors. However, there may be uncorrected grammatical, spelling, and recognitions errors present. Subjective Date/time seen: 03/01/25 08:49 Interval history: Reason for consult: Seizures, intubated for airway protection 03/01/2025: Patient seen and examined the ICU, remains intubated on CMV mode of ventilation, peep of 5, 30% FiO2. Sedated with propofol infusion, patient opens her eyes, follows simple commands in lower extremities. No seizure activity noted overnight. Urine output has been good, afebrile, hemodynamically stable and tolerating tube feeds, no bowel movement Review of Systems Review of Systems: ROS unobtainable: Yes unobtainable due to endotracheal tube and unobtainable due to medical condition Exam Narrative: General: Intubated and sedated in no acute distress HEENT:? Pupils equal and reactive, sclera is clear, ETT in place Neck:? Supple Respiratory:? Clear to auscultation bilaterally, no wheezing, adequate air entry Cardiac:? S1-S2 is normal, reviewed return room Abdomen:? Soft, nontender, nondistended, hypoactive bowel sounds, obese Extremities:? Trace edema bilaterally, palpable pedal pulses Neuro:? Intubated, sedated, opens her eyes, follows simple commands in lower extremities Skin:? No lesions noted Psych:? Unable to assess at this time Objective Data Vital Signs Vital Signs: Vital Signs - 24 hr 02/28/25 10:00 02/28/25 10:00 02/28/25 10:00 Temperature 97.4 F L Pulse Rate 82 81 77 Respiratory Rate 19 16 Blood Pressure 107/67 Pulse Oximetry 99 Oxygen Delivery Fraction of Inspired Oxygen 02/28/25 10:15 02/28/25 10:25 02/28/25 10:41 Temperature Pulse Rate 83 81 76 Respiratory Rate 16 16 16 Blood Pressure Pulse Oximetry Oxygen Delivery Fraction of Inspired Oxygen 02/28/25 10:41 02/28/25 11:37 02/28/25 12:00 Temperature Pulse Rate 76 82 77 Respiratory Rate 16 16 Blood Pressure Pulse Oximetry 100 Oxygen Delivery Mechanical Ventilation Fraction of Inspired Oxygen 30 02/28/25 12:00 02/28/25 12:00 02/28/25 12:00 Temperature 98.5 F Pulse Rate 77 Respiratory Rate 16 Blood Pressure 117/65 Pulse Oximetry 100 100 Oxygen Delivery Mechanical Ventilation Fraction of Inspired Oxygen 30 30 02/28/25 12:00 02/28/25 12:37 02/28/25 12:37 Temperature Pulse Rate 85 90 Respiratory Rate Blood Pressure Pulse Oximetry 100 Oxygen Delivery Mechanical Ventilation Fraction of Inspired Oxygen 30 30 02/28/25 12:37 02/28/25 12:55 02/28/25 13:10 Temperature Pulse Rate 88 67 85 Respiratory Rate 16 16 Blood Pressure Pulse Oximetry 100 Oxygen Delivery Mechanical Ventilation Fraction of Inspired Oxygen 30 02/28/25 13:10 02/28/25 13:15 02/28/25 13:20 Temperature Pulse Rate 109 H 88 99 Respiratory Rate 16 16 Blood Pressure Pulse Oximetry 100 Oxygen Delivery Mechanical Ventilation Fraction of Inspired Oxygen 30 02/28/25 14:00 02/28/25 14:00 02/28/25 14:30 Temperature 99.1 F Pulse Rate 89 89 89 Respiratory Rate 18 16 Blood Pressure 113/57 L Pulse Oximetry 99 Oxygen Delivery Fraction of Inspired Oxygen 02/28/25 14:31 02/28/25 15:07 02/28/25 16:00 Temperature 99 F Pulse Rate 89 90 87 Respiratory Rate 16 17 Blood Pressure 120/58 L Pulse Oximetry 100 96 Oxygen Delivery Mechanical Ventilation Fraction of Inspired Oxygen 30 02/28/25 16:00 02/28/25 16:00 02/28/25 16:00 Temperature Pulse Rate 83 Respiratory Rate 16 Blood Pressure Pulse Oximetry 96 Oxygen Delivery Mechanical Ventilation Fraction of Inspired Oxygen 30 30 02/28/25 16:00 02/28/25 16:58 02/28/25 16:58 Temperature Pulse Rate 86 86 86 Respiratory Rate 17 17 Blood Pressure Pulse Oximetry Oxygen Delivery Fraction of Inspired Oxygen 02/28/25 17:39 02/28/25 18:00 02/28/25 18:00 Temperature 98.6 F Pulse Rate 81 84 84 Respiratory Rate 16 Blood Pressure 113/50 L Pulse Oximetry 98 98 Oxygen Delivery Mechanical Ventilation Fraction of Inspired Oxygen 30 02/28/25 18:00 02/28/25 18:53 02/28/25 18:53 Temperature Pulse Rate 83 81 81 Respiratory Rate 16 16 16 Blood Pressure Pulse Oximetry Oxygen Delivery Fraction of Inspired Oxygen 02/28/25 19:51 02/28/25 19:52 02/28/25 19:55 Temperature Pulse Rate 75 75 Respiratory Rate 16 Blood Pressure Pulse Oximetry 98 Oxygen Delivery Mechanical Ventilation Fraction of Inspired Oxygen 30 30 02/28/25 20:00 02/28/25 20:29 02/28/25 21:20 Temperature Pulse Rate 78 80 76 Respiratory Rate 16 16 Blood Pressure Pulse Oximetry 96 Oxygen Delivery Mechanical Ventilation Fraction of Inspired Oxygen 30 02/28/25 22:00 02/28/25 22:00 02/28/25 22:00 Temperature 99.0 F Pulse Rate 76 76 76 Respiratory Rate 16 16 Blood Pressure 108/53 L Pulse Oximetry 97 Oxygen Delivery Fraction of Inspired Oxygen 02/28/25 23:46 02/28/25 23:47 02/28/25 23:57 Temperature Pulse Rate 69 69 70 Respiratory Rate 16 Blood Pressure Pulse Oximetry 96 96 Oxygen Delivery Mechanical Ventilation Mechanical Ventilation Fraction of Inspired Oxygen 30 30 02/28/25 23:57 03/01/25 00:00 03/01/25 00:00 Temperature 98.8 F Pulse Rate 72 72 Respiratory Rate 16 16 Blood Pressure 118/55 L Pulse Oximetry 97 Oxygen Delivery Fraction of Inspired Oxygen 30 03/01/25 00:00 03/01/25 02:00 03/01/25 02:00 Temperature 98.8 F Pulse Rate 72 68 66 Respiratory Rate 16 16 Blood Pressure 116/55 L Pulse Oximetry 97 Oxygen Delivery Fraction of Inspired Oxygen 03/01/25 02:00 03/01/25 02:00 03/01/25 02:14 Temperature Pulse Rate 66 66 69 Respiratory Rate 16 16 Blood Pressure Pulse Oximetry 97 Oxygen Delivery Mechanical Ventilation Fraction of Inspired Oxygen 30 03/01/25 04:00 03/01/25 04:00 03/01/25 04:00 Temperature Pulse Rate 69 70 Respiratory Rate 16 Blood Pressure Pulse Oximetry 97 Oxygen Delivery Mechanical Ventilation Fraction of Inspired Oxygen 30 30 03/01/25 04:00 03/01/25 04:00 03/01/25 04:00 Temperature 98.6 F Pulse Rate 70 70 70 Respiratory Rate 16 16 16 Blood Pressure 125/60 Pulse Oximetry 98 Oxygen Delivery Fraction of Inspired Oxygen 03/01/25 04:54 03/01/25 06:00 03/01/25 06:00 Temperature Pulse Rate 74 75 5 L Respiratory Rate 16 16 Blood Pressure Pulse Oximetry 97 Oxygen Delivery Mechanical Ventilation Fraction of Inspired Oxygen 30 03/01/25 06:00 03/01/25 06:00 03/01/25 08:00 Temperature 98.3 F Pulse Rate 65 78 81 Respiratory Rate 16 15 Blood Pressure 118/61 Pulse Oximetry 99 Oxygen Delivery Fraction of Inspired Oxygen 03/01/25 08:25 03/01/25 08:42 03/01/25 08:42 Temperature Pulse Rate 87 82 82 Respiratory Rate 15 15 Blood Pressure Pulse Oximetry 100 Oxygen Delivery Mechanical Ventilation Fraction of Inspired Oxygen 30 Intake/Output Intake/Output: Intake & Output 02/26/25 02/27/25 02/28/25 03/01/25 23:59 23:59 23:59 23:59 Intake Total 3831.9 3924.5 4648.5 1014.1 Output Total 750 2200 2075 2350 Balance 3081.9 1724.5 2573.5 -1335.9 Meds/Results Medications: Active Medications Generic Name Dose Route Start Last Admin Trade Name Freq PRN Reason Stop Dose Admin Apixaban 5 mg 02/25/25 10:25 03/01/25 08:41 Apixaban 5 Mg Tablet PO 5 mg Q12HR SANA Administration Folic Acid 1 mg 02/25/25 09:00 03/01/25 08:41 Folic Acid 1 Mg/0.2 Ml Inj IV PUSH 1 mg QAM SANA Administration Ceftriaxone Sodium 1 gm/ 50 mls @ 100 mls/hr 02/25/25 21:00 02/28/25 21:30 Sodium Chloride IVPB Infused Q24H SANA Infusion Lactated Ringer's 1,000 mls @ 75 mls/hr 02/24/25 21:50 03/01/25 01:30 Lr - Lactated Ringers Iv IV CONT 75 mls/hr .[id number] SANA Administration Propofol 100 mls @ 36.855 mls/hr 02/25/25 17:10 03/01/25 08:42 Diprivan IV CONT 45 mcg/kg/min .Q2H43M SANA 36.86 mls/hr Administration Protocol 45 MCG/KG/MIN Levetiracetam 1,000 mg in 100 mls @ 400 mls/hr 02/27/25 12:00 03/01/25 06:23 Keppra Iv IVPB 400 mls/hr Q6H SANA Administration Valproate Sodium 1,000 mg/ 60 mls @ 57.5 mls/hr 02/28/25 14:00 03/01/25 06:23 Dextrose IVPB 57.5 mls/hr Q4H SANA Administration Dexmedetomidine HCl 400 mcg in 100 mls @ 7 mls/hr 03/01/25 08:40 Precedex 400 Mcg/100 Ml IV CONT .[id number] SANA Protocol 0.2 MCG/KG/HR Lorazepam 1 mg 02/24/25 21:49 02/24/25 22:23 Lorazepam Inj (*Crx) 2 Mg/Ml Vial IV PUSH 1 mg Q2H PRN Administration CIWA>8, HR>100, or DBP>100 Lorazepam 2 mg 02/26/25 12:32 02/28/25 13:12 Lorazepam Inj (*Crx) 2 Mg/Ml Vial IV PUSH 2 mg Q2H PRN Administration seizures Multi-Ingred Cream/Lotion/Oil/Oint 1 applic 02/25/25 09:00 03/01/25 08:41 Mineral Oil/White Petrolatum Ointment EACH EYE 1 applic Q12HR SANA Administration Multivitamins/Calcium 1 tablet 02/25/25 09:00 03/01/25 08:41 Therapeutic Multivitamins/Minerals Tab (*Bkc) PO 1 tablet DAILY SANA Administration Ondansetron HCl 4 mg 02/24/25 21:49 02/24/25 22:23 Ondansetron Inj 4 Mg/2 Ml Vial IV PUSH 4 mg Q6H PRN Administration Nausea And Vomiting Pantoprazole Sodium 40 mg 02/25/25 09:00 03/01/25 08:40 Pantoprazole Sodium Iv 40 Mg Vial IV PUSH 40 mg Q12HR SANA Administration Polyethylene Glycol 17 gm 02/28/25 09:00 03/01/25 08:41 Polyethylene Glycol 3350 17 Gm Powd.Pack PO 17 gm QAM SANA Administration Sodium Chloride 10 ml 02/26/25 22:00 03/01/25 06:23 Central Line Flush IV PUSH 10 ml Q8HR SANA Administration Sodium Chloride 20 ml 02/26/25 16:48 Central Line Flush IV PUSH PRN PRN after blood draws Thiamine HCl 100 mg 02/25/25 09:00 03/01/25 08:41 Thiamine Hcl 200 Mg/2 Ml Vial IV PUSH 100 mg QAM SANA Administration Radiology Results: ITS Impressions Head CT 02/28/25 14:57 IMPRESSION: 1. Persistent small left frontal scalp hematoma. No fracture or acute intracranial process. Chest X-Ray 03/01/25 06:35 IMPRESSION: Right middle and lower lobe infiltrate. Supportive lines and tubes in good position. Labs Labs: Laboratory Results - last 24 hr 02/24/25 02/28/25 02/28/25 20:33 11:26 18:25 WBC RBC Hgb Hct MCV MCH MCHC RDW Plt Count MPV Immature Gran % (Auto) Neut % (Auto) Lymph % (Auto) [place] % (Auto) Eos % (Auto) Baso % (Auto) Lymph # (Auto) [place] # (Auto) Eos # (Auto) Baso # (Auto) Abs Immat Gran (auto) Absolute Neuts (auto) Absolute Nucleated RBC Nucleated RBC % Puncture Site ABG pH ABG pCO2 ABG pO2 ABG PO2/FiO2 Ratio ABG HCO3 ABG O2 Saturation ABG O2 Content ABG Base Excess A-a Gradient Oxyhemoglobin Carboxyhemoglobin Methemoglobin Reduced Hemoglobin Total Hemoglobin O2 Delivery Device O2 Liters/Min Minute Volume Vent Rate Vent Mode FiO2 Tidal Volume PEEP Peak Inspir Pressure Pressure Support Sodium Potassium Chloride Carbon Dioxide Anion Gap BUN Creatinine Estim Creat Clear Calc Estimated GFR Glucose POC Capillary Glucose 70 94 Calcium Phosphorus Magnesium Total Bilirubin AST ALT Alkaline Phosphatase Total Protein Albumin Triglycerides Lamotrigine <1.0 L 03/01/25 03/01/25 04:46 05:07 WBC 4.2 L RBC 3.31 L Hgb 8.6 L Hct 28.1 L MCV 84.9 MCH 26.0 MCHC 30.6 L RDW 19.2 H Plt Count 202 MPV 10.0 Immature Gran % (Auto) 0.7 H Neut % (Auto) 64.1 Lymph % (Auto) 22.3 [place] % (Auto) 10.0 H Eos % (Auto) 2.4 Baso % (Auto) 0.5 Lymph # (Auto) 0.94 [place] # (Auto) 0.4 Eos # (Auto) 0.1 Baso # (Auto) 0.0 Abs Immat Gran (auto) 0.03 Absolute Neuts (auto) 2.7 Absolute Nucleated RBC 0.000 Nucleated RBC % 0.0 Puncture Site Right radial ABG pH 7.452 H ABG pCO2 38.6 ABG pO2 86.2 ABG PO2/FiO2 Ratio 2.87 ABG HCO3 26.3 H ABG O2 Saturation 96.9 ABG O2 Content 13.1 L ABG Base Excess 2.3 A-a Gradient 82.3 Oxyhemoglobin 94.8 Carboxyhemoglobin 0.6 Methemoglobin 0.3 Reduced Hemoglobin 4.3 Total Hemoglobin 9.7 L O2 Delivery Device Ventilator O2 Liters/Min Not Reportable Minute Volume Not Reportable Vent Rate 16 Vent Mode Cmv FiO2 30 Tidal Volume 400 PEEP 5 Peak Inspir Pressure Not Reportable Pressure Support Not Reportable Sodium 138 Potassium 4.1 Chloride 107 Carbon Dioxide 26 Anion Gap 5 BUN 9 Creatinine 0.58 L Estim Creat Clear Calc 171 Estimated GFR > 60 Glucose 85 POC Capillary Glucose Calcium 8.3 L Phosphorus 4.2 Magnesium 2.1 Total Bilirubin < 0.1 L AST 20 ALT 10 Alkaline Phosphatase 80 Total Protein 5.6 L Albumin 3.0 L Triglycerides 100 Lamotrigine Quality VTE Prophylaxis VTE prophylaxis: pharmacologic ordered
[2025-03-01] MEDS: dexmedeTOMIDine 400 MCG/100 ML 400 MCG/100 ML BAG 7 MCG IV CONT (08:51)
[2025-03-01] MEDS: dexmedeTOMIDine 400 MCG/100 ML 400 MCG/100 ML BAG 21 MCG IV CONT (13:49)
--- NOTE | 2025-03-01 14:34 | PM.IMPN ---
Progress Note: A&P Assessment and Plan (1) Seizure disorder: Code(s): G40.909 - Epilepsy, unspecified, not intractable, without status epilepticus Status: Chronic Assessment and Plan: 02/24: Patient was found by police having seizures in her car, upon EMS arrival patient received Versed IV, she also received multiple doses of Ativan in the ER. Patient presented with multiple seizure activity. Was admitted to IMU a she had seizure activity for approximately 24 minute, patient was intubated as she was given multiple doses of IV Versed, IV Ativan,, diazepam propofol. -valproic level is on admission was significantly low, -lamotrigine and levetiracetam levels pending -discussed with Neurology, increased Keppra to 1 g q.6 hours and valproic acid to 100 mg Q 8 hours -patient was also given 1 dose of phenobarbital 260 mg IV x1, if the seizures are associated with alcohol withdrawal, given long half life of phenobarbital -appreciate Neurology evaluation and recommendations -02/26: EEG: this is a normal EEG obtained during awake and Drowsy states (2) Acute hypoxic respiratory failure: Code(s): J96.01 - Acute respiratory failure with hypoxia Status: Acute Assessment and Plan: Patient was intubated for airway protection secondary to prolonged seizure activity -currently on CMV mode of ventilation, peep of 5, 30% FiO2 -chest x-ray and ABGs reviewed, ventilator adjusted, will wean FiO2 to maintain O2 sats > 92 per -sedated with propofol infusion, I have asked the bedside RN to wean sedation, and start Precedex infusion so I can try to place her on SBT, and evaluate for extubation (3) Nausea vomiting and diarrhea: Code(s): R11.2 - Nausea with vomiting, unspecified; R19.7 - Diarrhea, unspecified Status: Acute Assessment and Plan: Patient presented with nausea and vomiting also -continue Zofran PRN (4) Alcoholism: Code(s): F10.20 - Alcohol dependence, uncomplicated Status: Acute Assessment and Plan: Patient drinks 750 mL of hard liquor every day -will have to watch for alcohol withdrawal/DTs -continue folic acid and thiamine (5) Pulmonary embolism: Onset Date: 2023 Code(s): I26.99 - Other pulmonary embolism without acute cor pulmonale Status: Acute Assessment and Plan: Patient has a history of pulmonary embolism in 2023 -on Eliquis at home, will continue (6) Anxiety: Code(s): F41.9 - Anxiety disorder, unspecified Status: Chronic Assessment and Plan: Currently intubated and sedated (7) Depression: Qualifiers: Depression Type: unspecified Qualified Code(s): F32.9 - Major depressive disorder, single episode, unspecified Code(s): F32.9 - Major depressive disorder, single episode, unspecified Status: Chronic Assessment and Plan: Currently intubated and sedated (8) Illicit drug use: Code(s): F19.90 - Other psychoactive substance use, unspecified, uncomplicated Status: Acute Assessment and Plan: Patient takes synthetic heroin, opiates, cannabinoids -will watch for withdrawal Plan DVT prophylaxis: Eliquis Stress ulcer prophylaxis: Protonix Nutrition: Tolerating tube Code Status: Full code Subjective Date/time seen: 03/01/25 14:34 Interval history: still intubated Review of Systems Review of Systems: 12 systems were reviewed with pertinent positives and negatives per HPI. Except as documented in the HPI, all other systems were reviewed and are negative. ROS unobtainable: Yes unobtainable due to endotracheal tube and unobtainable due to medical condition Exam Narrative: General: Intubated and sedated in no acute distress HEENT:? Pupils equal and reactive, sclera is clear, ETT in place Neck:? Supple Respiratory:? Clear to auscultation bilaterally, no wheezing, adequate air entry Cardiac:? S1-S2 is normal, reviewed return room Abdomen:? Soft, nontender, nondistended, hypoactive bowel sounds, obese Extremities:? Trace edema bilaterally, palpable pedal pulses Neuro:? Intubated, sedated, opens her eyes, follows simple commands in lower extremities Skin:? No lesions noted Psych:? Unable to assess at this time Const: Other: Acutely ill-appearing, appears older than stated age, morbidly obese HENMT: Other: Mucous membranes are dry, crowded posterior oropharynx, no oral pharyngeal erythema Eyes: Other: Pupils are equal but constricted, no scleral icterus, no conjunctival pallor, extra movements intact Neck: Other: Large neck circumference, no lymphadenopathy Resp: Other: Clear to auscultation bilaterally, no increased work of breathing Cardio: Other: Sinus tachycardia, 2+ bilateral radial pedal pulses, no murmur GI: Other: Obese, generalized tenderness palpation, soft, normoactive bowel sounds Skin: Other: Warm to touch, diaphoretic, tattoo left medial forearm Neuro: Other: Alert orient x4, speech is clear, no facial asymmetry Objective Data Vital Signs Vital Signs: Vital Signs - 24 hr 02/28/25 15:07 02/28/25 16:00 02/28/25 16:00 Temperature 99 F Pulse Rate 90 87 Respiratory Rate 17 Blood Pressure 120/58 L Pulse Oximetry 100 96 Oxygen Delivery Mechanical Ventilation Fraction of Inspired Oxygen 30 30 02/28/25 16:00 02/28/25 16:00 02/28/25 16:00 Temperature Pulse Rate 83 86 Respiratory Rate 16 Blood Pressure Pulse Oximetry 96 Oxygen Delivery Mechanical Ventilation Fraction of Inspired Oxygen 30 02/28/25 16:58 02/28/25 16:58 02/28/25 17:39 Temperature Pulse Rate 86 86 81 Respiratory Rate 17 17 Blood Pressure Pulse Oximetry 98 Oxygen Delivery Mechanical Ventilation Fraction of Inspired Oxygen 30 02/28/25 18:00 02/28/25 18:00 02/28/25 18:00 Temperature 98.6 F Pulse Rate 84 84 83 Respiratory Rate 16 16 Blood Pressure 113/50 L Pulse Oximetry 98 Oxygen Delivery Fraction of Inspired Oxygen 02/28/25 18:53 02/28/25 18:53 02/28/25 19:51 Temperature Pulse Rate 81 81 75 Respiratory Rate 16 16 16 Blood Pressure Pulse Oximetry 98 Oxygen Delivery Mechanical Ventilation Fraction of Inspired Oxygen 30 02/28/25 19:52 02/28/25 19:55 02/28/25 20:00 Temperature Pulse Rate 75 78 Respiratory Rate 16 Blood Pressure Pulse Oximetry Oxygen Delivery Fraction of Inspired Oxygen 30 02/28/25 20:29 02/28/25 21:20 02/28/25 22:00 Temperature Pulse Rate 80 76 76 Respiratory Rate 16 Blood Pressure Pulse Oximetry 96 Oxygen Delivery Mechanical Ventilation Fraction of Inspired Oxygen 30 02/28/25 22:00 02/28/25 22:00 02/28/25 23:46 Temperature 99.0 F Pulse Rate 76 76 69 Respiratory Rate 16 16 Blood Pressure 108/53 L Pulse Oximetry 97 96 Oxygen Delivery Mechanical Ventilation Fraction of Inspired Oxygen 30 02/28/25 23:47 02/28/25 23:57 02/28/25 23:57 Temperature Pulse Rate 69 70 Respiratory Rate 16 Blood Pressure Pulse Oximetry 96 Oxygen Delivery Mechanical Ventilation Fraction of Inspired Oxygen 30 30 03/01/25 00:00 03/01/25 00:00 03/01/25 00:00 Temperature 98.8 F Pulse Rate 72 72 72 Respiratory Rate 16 16 16 Blood Pressure 118/55 L Pulse Oximetry 97 Oxygen Delivery Fraction of Inspired Oxygen 03/01/25 02:00 03/01/25 02:00 03/01/25 02:00 Temperature 98.8 F Pulse Rate 68 66 66 Respiratory Rate 16 16 Blood Pressure 116/55 L Pulse Oximetry 97 Oxygen Delivery Fraction of Inspired Oxygen 03/01/25 02:00 03/01/25 02:14 03/01/25 04:00 Temperature Pulse Rate 66 69 69 Respiratory Rate 16 16 Blood Pressure Pulse Oximetry 97 97 Oxygen Delivery Mechanical Ventilation Mechanical Ventilation Fraction of Inspired Oxygen 30 30 03/01/25 04:00 03/01/25 04:00 03/01/25 04:00 Temperature 98.6 F Pulse Rate 70 70 Respiratory Rate 16 Blood Pressure 125/60 Pulse Oximetry 98 Oxygen Delivery Fraction of Inspired Oxygen 30 03/01/25 04:00 03/01/25 04:00 03/01/25 04:54 Temperature Pulse Rate 70 70 74 Respiratory Rate 16 16 Blood Pressure Pulse Oximetry 97 Oxygen Delivery Mechanical Ventilation Fraction of Inspired Oxygen 30 03/01/25 06:00 03/01/25 06:00 03/01/25 06:00 Temperature Pulse Rate 75 5 L 65 Respiratory Rate 16 16 Blood Pressure Pulse Oximetry Oxygen Delivery Fraction of Inspired Oxygen 03/01/25 06:00 03/01/25 08:00 03/01/25 08:00 Temperature 98.3 F Pulse Rate 78 81 Respiratory Rate 16 15 Blood Pressure 118/61 Pulse Oximetry 99 100 Oxygen Delivery Mechanical Ventilation Fraction of Inspired Oxygen 30 03/01/25 08:00 03/01/25 08:00 03/01/25 08:00 Temperature 98.7 F Pulse Rate 81 83 Respiratory Rate 15 Blood Pressure 114/54 L Pulse Oximetry 98 Oxygen Delivery Fraction of Inspired Oxygen 30 03/01/25 08:25 03/01/25 08:42 03/01/25 08:42 Temperature Pulse Rate 87 82 82 Respiratory Rate 15 15 Blood Pressure Pulse Oximetry 100 Oxygen Delivery Mechanical Ventilation Fraction of Inspired Oxygen 30 03/01/25 08:51 03/01/25 09:03 03/01/25 09:30 Temperature Pulse Rate 81 89 70 Respiratory Rate 16 15 15 Blood Pressure Pulse Oximetry Oxygen Delivery Fraction of Inspired Oxygen 03/01/25 09:44 03/01/25 10:00 03/01/25 10:00 Temperature 98.9 F Pulse Rate 69 67 67 Respiratory Rate 15 15 Blood Pressure 115/56 L Pulse Oximetry 99 Oxygen Delivery Fraction of Inspired Oxygen 03/01/25 10:01 03/01/25 10:01 03/01/25 10:30 Temperature Pulse Rate 68 68 62 Respiratory Rate 15 15 15 Blood Pressure Pulse Oximetry Oxygen Delivery Fraction of Inspired Oxygen 03/01/25 10:55 03/01/25 11:30 03/01/25 12:00 Temperature 99.7 F H Pulse Rate 63 60 66 Respiratory Rate 15 16 Blood Pressure 139/73 Pulse Oximetry 99 98 Oxygen Delivery Mechanical Ventilation Fraction of Inspired Oxygen 30 03/01/25 12:00 03/01/25 12:00 03/01/25 13:30 Temperature Pulse Rate 70 Respiratory Rate 15 Blood Pressure Pulse Oximetry 98 Oxygen Delivery Mechanical Ventilation Fraction of Inspired Oxygen 30 30 03/01/25 13:49 03/01/25 13:49 03/01/25 13:51 Temperature Pulse Rate 75 75 72 Respiratory Rate 16 16 17 Blood Pressure Pulse Oximetry Oxygen Delivery Fraction of Inspired Oxygen 03/01/25 14:00 03/01/25 14:00 03/01/25 14:02 Temperature 100.2 F H Pulse Rate 70 70 71 Respiratory Rate 21 H Blood Pressure 132/70 Pulse Oximetry 100 100 Oxygen Delivery Mechanical Ventilation Fraction of Inspired Oxygen 30 Intake/Output Intake/Output: Intake & Output 02/26/25 02/27/25 02/28/25 03/01/25 23:59 23:59 23:59 23:59 Intake Total 3831.9 3924.5 4648.5 1482.0 Output Total 750 2200 2075 2350 Balance 3081.9 1724.5 2573.5 -868.0 Meds/Results Medications: Active Medications Generic Name Dose Route Start Last Admin Trade Name Freq PRN Reason Stop Dose Admin Apixaban 5 mg 02/25/25 10:25 03/01/25 08:41 Apixaban 5 Mg Tablet PO 5 mg Q12HR SANA Administration Folic Acid 1 mg 02/25/25 09:00 03/01/25 08:41 Folic Acid 1 Mg/0.2 Ml Inj IV PUSH 1 mg QAM SANA Administration Ceftriaxone Sodium 1 gm/ 50 mls @ 100 mls/hr 02/25/25 21:00 02/28/25 21:30 Sodium Chloride IVPB Infused Q24H SANA Infusion Propofol 100 mls @ 0 mls/hr 02/25/25 17:10 03/01/25 13:30 Diprivan IV CONT 0 mcg/kg/min .Q0M SANA 0 mls/hr Titration Protocol Levetiracetam 1,000 mg in 100 mls @ 400 mls/hr 02/27/25 12:00 03/01/25 11:45 Keppra Iv IVPB Infused Q6H SANA Infusion Valproate Sodium 1,000 mg/ 60 mls @ 57.5 mls/hr 02/28/25 14:00 03/01/25 13:53 Dextrose IVPB 57.5 mls/hr Q4H SANA Administration Dexmedetomidine HCl 400 mcg in 100 mls @ 28 mls/hr 03/01/25 08:40 03/01/25 13:51 Precedex 400 Mcg/100 Ml IV CONT 0.8 mcg/kg/hr .Q3H35M SANA 28 mls/hr Titration Protocol 0.8 MCG/KG/HR Lorazepam 1 mg 02/24/25 21:49 02/24/25 22:23 Lorazepam Inj (*Crx) 2 Mg/Ml Vial IV PUSH 1 mg Q2H PRN Administration CIWA>8, HR>100, or DBP>100 Lorazepam 2 mg 02/26/25 12:32 02/28/25 13:12 Lorazepam Inj (*Crx) 2 Mg/Ml Vial IV PUSH 2 mg Q2H PRN Administration seizures Multi-Ingred Cream/Lotion/Oil/Oint 1 applic 02/25/25 09:00 03/01/25 08:41 Mineral Oil/White Petrolatum Ointment EACH EYE 1 applic Q12HR SANA Administration Multivitamins/Calcium 1 tablet 02/25/25 09:00 03/01/25 08:41 Therapeutic Multivitamins/Minerals Tab (*Bkc) PO 1 tablet DAILY SANA Administration Ondansetron HCl 4 mg 02/24/25 21:49 02/24/25 22:23 Ondansetron Inj 4 Mg/2 Ml Vial IV PUSH 4 mg Q6H PRN Administration Nausea And Vomiting Pantoprazole Sodium 40 mg 02/25/25 09:00 03/01/25 08:40 Pantoprazole Sodium Iv 40 Mg Vial IV PUSH 40 mg Q12HR SANA Administration Polyethylene Glycol 17 gm 02/28/25 09:00 03/01/25 08:41 Polyethylene Glycol 3350 17 Gm Powd.Pack PO 17 gm QAM SANA Administration Senna/Docusate Sodium 1 tab 03/01/25 21:00 Senna/Docusate Sodium Tablet PO HS SANA Sodium Chloride 10 ml 02/26/25 22:00 03/01/25 13:52 Central Line Flush IV PUSH 10 ml Q8HR SANA Administration Sodium Chloride 20 ml 02/26/25 16:48 Central Line Flush IV PUSH PRN PRN after blood draws Thiamine HCl 100 mg 02/25/25 09:00 03/01/25 08:41 Thiamine Hcl 200 Mg/2 Ml Vial IV PUSH 100 mg QAM SANA Administration Radiology Results: ITS Impressions Head CT 02/28/25 14:57 IMPRESSION: 1. Persistent small left frontal scalp hematoma. No fracture or acute intracranial process. Chest X-Ray 03/01/25 06:35 IMPRESSION: Right middle and lower lobe infiltrate. Supportive lines and tubes in good position. Labs Labs: Laboratory Results - last 24 hr 02/24/25 02/28/25 03/01/25 20:33 18:25 04:46 WBC RBC Hgb Hct MCV MCH MCHC RDW Plt Count MPV Immature Gran % (Auto) Neut % (Auto) Lymph % (Auto) [place] % (Auto) Eos % (Auto) Baso % (Auto) Lymph # (Auto) [place] # (Auto) Eos # (Auto) Baso # (Auto) Abs Immat Gran (auto) Absolute Neuts (auto) Absolute Nucleated RBC Nucleated RBC % Puncture Site Right radial ABG pH 7.452 H ABG pCO2 38.6 ABG pO2 86.2 ABG PO2/FiO2 Ratio 2.87 ABG HCO3 26.3 H ABG O2 Saturation 96.9 ABG O2 Content 13.1 L ABG Base Excess 2.3 A-a Gradient 82.3 Oxyhemoglobin 94.8 Carboxyhemoglobin 0.6 Methemoglobin 0.3 Reduced Hemoglobin 4.3 Total Hemoglobin 9.7 L O2 Delivery Device Ventilator O2 Liters/Min Not Reportable Minute Volume Not Reportable Vent Rate 16 Vent Mode Cmv FiO2 30 Tidal Volume 400 PEEP 5 Peak Inspir Pressure Not Reportable Pressure Support Not Reportable Sodium Potassium Chloride Carbon Dioxide Anion Gap BUN Creatinine Estim Creat Clear Calc Estimated GFR Glucose POC Capillary Glucose 94 Calcium Phosphorus Magnesium Total Bilirubin AST ALT Alkaline Phosphatase Total Protein Albumin Triglycerides Lamotrigine <1.0 L 03/01/25 03/01/25 05:07 11:27 WBC 4.2 L RBC 3.31 L Hgb 8.6 L Hct 28.1 L MCV 84.9 MCH 26.0 MCHC 30.6 L RDW 19.2 H Plt Count 202 MPV 10.0 Immature Gran % (Auto) 0.7 H Neut % (Auto) 64.1 Lymph % (Auto) 22.3 [place] % (Auto) 10.0 H Eos % (Auto) 2.4 Baso % (Auto) 0.5 Lymph # (Auto) 0.94 [place] # (Auto) 0.4 Eos # (Auto) 0.1 Baso # (Auto) 0.0 Abs Immat Gran (auto) 0.03 Absolute Neuts (auto) 2.7 Absolute Nucleated RBC 0.000 Nucleated RBC % 0.0 Puncture Site ABG pH ABG pCO2 ABG pO2 ABG PO2/FiO2 Ratio ABG HCO3 ABG O2 Saturation ABG O2 Content ABG Base Excess A-a Gradient Oxyhemoglobin Carboxyhemoglobin Methemoglobin Reduced Hemoglobin Total Hemoglobin O2 Delivery Device O2 Liters/Min Minute Volume Vent Rate Vent Mode FiO2 Tidal Volume PEEP Peak Inspir Pressure Pressure Support Sodium 138 Potassium 4.1 Chloride 107 Carbon Dioxide 26 Anion Gap 5 BUN 9 Creatinine 0.58 L Estim Creat Clear Calc 171 Estimated GFR > 60 Glucose 85 POC Capillary Glucose 104 Calcium 8.3 L Phosphorus 4.2 Magnesium 2.1 Total Bilirubin < 0.1 L AST 20 ALT 10 Alkaline Phosphatase 80 Total Protein 5.6 L Albumin 3.0 L Triglycerides 100 Lamotrigine Quality VTE Prophylaxis VTE prophylaxis: pharmacologic ordered
[2025-03-01] MEDS: dexmedeTOMIDine 400 MCG/100 ML 400 MCG/100 ML BAG 31.5 MCG IV CONT (16:52)
--- NOTE | 2025-03-01 17:05 | WPDNEUROPN ---
Progress Note: A&P Assessment and Plan (1) Seizure disorder: Code(s): G40.909 - Epilepsy, unspecified, not intractable, without status epilepticus Status: Chronic (2) Breakthrough seizure: Code(s): G40.919 - Epilepsy, unspecified, intractable, without status epilepticus Status: Acute Plan I would suggest to continue the Keppra and Depakote at the current doses. I shall be glad to follow up from neurologic point of view Subjective Date/time seen: 03/01/25 17:05 Interval history: The patient is 29 years old with history of traumatic brain injury and alcohol abuse found by the police in the car most likely had a seizure. There is also history of the state bypass surgery. She has had seizure was attempts are being made to take her off the propofol. Nursing staff called me yesterday and I advised to give additional doses of Depakote. She is currently on Keppra 1000 mg 4 times a day and and Depakote 1000 mg 4 times a day. She is also on phenobarb however she needs to state intubated. Attempts are being made again try and wean her off that. Review of Systems Review of Systems: ROS unobtainable: Yes unobtainable due to medical condition Exam Narrative: Patient intubated on ventilator support and remains unresponsive. No decorticate or decerebrate posturing was noted. No difference in the tone of upper lower limbs was noted at left versus right side. Objective Data Vital Signs Vital Signs: Vital Signs - 24 hr 02/28/25 17:39 02/28/25 18:00 02/28/25 18:00 Temperature 98.6 F Pulse Rate 81 84 84 Respiratory Rate 16 Blood Pressure 113/50 L Pulse Oximetry 98 98 Oxygen Delivery Mechanical Ventilation Fraction of Inspired Oxygen 30 02/28/25 18:00 02/28/25 18:53 02/28/25 18:53 Temperature Pulse Rate 83 81 81 Respiratory Rate 16 16 16 Blood Pressure Pulse Oximetry Oxygen Delivery Fraction of Inspired Oxygen 02/28/25 19:51 02/28/25 19:52 02/28/25 19:55 Temperature Pulse Rate 75 75 Respiratory Rate 16 Blood Pressure Pulse Oximetry 98 Oxygen Delivery Mechanical Ventilation Fraction of Inspired Oxygen 30 30 02/28/25 20:00 02/28/25 20:29 02/28/25 21:20 Temperature Pulse Rate 78 80 76 Respiratory Rate 16 16 Blood Pressure Pulse Oximetry 96 Oxygen Delivery Mechanical Ventilation Fraction of Inspired Oxygen 30 02/28/25 22:00 02/28/25 22:00 02/28/25 22:00 Temperature 99.0 F Pulse Rate 76 76 76 Respiratory Rate 16 16 Blood Pressure 108/53 L Pulse Oximetry 97 Oxygen Delivery Fraction of Inspired Oxygen 02/28/25 23:46 02/28/25 23:47 02/28/25 23:57 Temperature Pulse Rate 69 69 70 Respiratory Rate 16 Blood Pressure Pulse Oximetry 96 96 Oxygen Delivery Mechanical Ventilation Mechanical Ventilation Fraction of Inspired Oxygen 30 30 02/28/25 23:57 03/01/25 00:00 03/01/25 00:00 Temperature 98.8 F Pulse Rate 72 72 Respiratory Rate 16 16 Blood Pressure 118/55 L Pulse Oximetry 97 Oxygen Delivery Fraction of Inspired Oxygen 30 03/01/25 00:00 03/01/25 02:00 03/01/25 02:00 Temperature 98.8 F Pulse Rate 72 68 66 Respiratory Rate 16 16 Blood Pressure 116/55 L Pulse Oximetry 97 Oxygen Delivery Fraction of Inspired Oxygen 03/01/25 02:00 03/01/25 02:00 03/01/25 02:14 Temperature Pulse Rate 66 66 69 Respiratory Rate 16 16 Blood Pressure Pulse Oximetry 97 Oxygen Delivery Mechanical Ventilation Fraction of Inspired Oxygen 30 03/01/25 04:00 03/01/25 04:00 03/01/25 04:00 Temperature Pulse Rate 69 70 Respiratory Rate 16 Blood Pressure Pulse Oximetry 97 Oxygen Delivery Mechanical Ventilation Fraction of Inspired Oxygen 30 30 03/01/25 04:00 03/01/25 04:00 03/01/25 04:00 Temperature 98.6 F Pulse Rate 70 70 70 Respiratory Rate 16 16 16 Blood Pressure 125/60 Pulse Oximetry 98 Oxygen Delivery Fraction of Inspired Oxygen 03/01/25 04:54 03/01/25 06:00 03/01/25 06:00 Temperature Pulse Rate 74 75 5 L Respiratory Rate 16 16 Blood Pressure Pulse Oximetry 97 Oxygen Delivery Mechanical Ventilation Fraction of Inspired Oxygen 30 03/01/25 06:00 03/01/25 06:00 03/01/25 08:00 Temperature 98.3 F Pulse Rate 65 78 81 Respiratory Rate 16 15 Blood Pressure 118/61 Pulse Oximetry 99 Oxygen Delivery Fraction of Inspired Oxygen 03/01/25 08:00 03/01/25 08:00 03/01/25 08:00 Temperature 98.7 F Pulse Rate 81 Respiratory Rate 15 Blood Pressure 114/54 L Pulse Oximetry 100 98 Oxygen Delivery Mechanical Ventilation Fraction of Inspired Oxygen 30 30 03/01/25 08:00 03/01/25 08:25 03/01/25 08:42 Temperature Pulse Rate 83 87 82 Respiratory Rate 15 Blood Pressure Pulse Oximetry 100 Oxygen Delivery Mechanical Ventilation Fraction of Inspired Oxygen 30 03/01/25 08:42 03/01/25 08:51 03/01/25 09:03 Temperature Pulse Rate 82 81 89 Respiratory Rate 15 16 15 Blood Pressure Pulse Oximetry Oxygen Delivery Fraction of Inspired Oxygen 03/01/25 09:30 03/01/25 09:44 03/01/25 10:00 Temperature Pulse Rate 70 69 67 Respiratory Rate 15 15 Blood Pressure Pulse Oximetry Oxygen Delivery Fraction of Inspired Oxygen 03/01/25 10:00 03/01/25 10:01 03/01/25 10:01 Temperature 98.9 F Pulse Rate 67 68 68 Respiratory Rate 15 15 15 Blood Pressure 115/56 L Pulse Oximetry 99 Oxygen Delivery Fraction of Inspired Oxygen 03/01/25 10:30 03/01/25 10:55 03/01/25 11:30 Temperature Pulse Rate 62 63 60 Respiratory Rate 15 15 Blood Pressure Pulse Oximetry 99 Oxygen Delivery Mechanical Ventilation Fraction of Inspired Oxygen 30 03/01/25 12:00 03/01/25 12:00 03/01/25 12:00 Temperature 99.7 F H Pulse Rate 66 Respiratory Rate 16 Blood Pressure 139/73 Pulse Oximetry 98 98 Oxygen Delivery Mechanical Ventilation Fraction of Inspired Oxygen 30 30 03/01/25 12:00 03/01/25 13:30 03/01/25 13:49 Temperature Pulse Rate 68 70 75 Respiratory Rate 15 16 Blood Pressure Pulse Oximetry Oxygen Delivery Fraction of Inspired Oxygen 03/01/25 13:49 03/01/25 13:51 03/01/25 14:00 Temperature Pulse Rate 75 72 70 Respiratory Rate 16 17 Blood Pressure Pulse Oximetry Oxygen Delivery Fraction of Inspired Oxygen 03/01/25 14:00 03/01/25 14:02 03/01/25 15:00 Temperature 100.2 F H Pulse Rate 70 71 63 Respiratory Rate 21 H 16 Blood Pressure 132/70 Pulse Oximetry 100 100 Oxygen Delivery Mechanical Ventilation Fraction of Inspired Oxygen 30 03/01/25 15:00 03/01/25 16:00 03/01/25 16:00 Temperature 100 F H Pulse Rate 63 75 75 Respiratory Rate 16 25 H 25 H Blood Pressure 148/88 H Pulse Oximetry 100 Oxygen Delivery Fraction of Inspired Oxygen 03/01/25 16:00 03/01/25 16:00 Temperature Pulse Rate Respiratory Rate Blood Pressure Pulse Oximetry 100 Oxygen Delivery Mechanical Ventilation Fraction of Inspired Oxygen 30 30 Intake/Output Intake/Output: Intake & Output 02/26/25 02/27/25 02/28/25 03/01/25 23:59 23:59 23:59 23:59 Intake Total 3831.9 3924.5 4648.5 2307.2 Output Total 750 2200 2075 4750 Balance 3081.9 1724.5 2573.5 -2442.8 Meds/Results Medications: Active Medications Generic Name Dose Route Start Last Admin Trade Name Freq PRN Reason Stop Dose Admin Apixaban 5 mg 02/25/25 10:25 03/01/25 08:41 Apixaban 5 Mg Tablet PO 5 mg Q12HR SANA Administration Folic Acid 1 mg 02/25/25 09:00 03/01/25 08:41 Folic Acid 1 Mg/0.2 Ml Inj IV PUSH 1 mg QAM SANA Administration Ceftriaxone Sodium 1 gm/ 50 mls @ 100 mls/hr 02/25/25 21:00 02/28/25 21:30 Sodium Chloride IVPB Infused Q24H SANA Infusion Levetiracetam 1,000 mg in 100 mls @ 400 mls/hr 02/27/25 12:00 03/01/25 11:45 Keppra Iv IVPB Infused Q6H SANA Infusion Valproate Sodium 1,000 mg/ 60 mls @ 57.5 mls/hr 02/28/25 14:00 03/01/25 14:56 Dextrose IVPB Infused Q4H SANA Infusion Dexmedetomidine HCl 400 mcg in 100 mls @ 31.5 mls/hr 03/01/25 08:40 03/01/25 16:00 Precedex 400 Mcg/100 Ml IV CONT 0.9 mcg/kg/hr .Q3H11M SANA 31.5 mls/hr Titration Protocol 0.9 MCG/KG/HR Lorazepam 1 mg 02/24/25 21:49 02/24/25 22:23 Lorazepam Inj (*Crx) 2 Mg/Ml Vial IV PUSH 1 mg Q2H PRN Administration CIWA>8, HR>100, or DBP>100 Lorazepam 2 mg 02/26/25 12:32 02/28/25 13:12 Lorazepam Inj (*Crx) 2 Mg/Ml Vial IV PUSH 2 mg Q2H PRN Administration seizures Multi-Ingred Cream/Lotion/Oil/Oint 1 applic 02/25/25 09:00 03/01/25 08:41 Mineral Oil/White Petrolatum Ointment EACH EYE 1 applic Q12HR SANA Administration Multivitamins/Calcium 1 tablet 02/25/25 09:00 03/01/25 08:41 Therapeutic Multivitamins/Minerals Tab (*Bkc) PO 1 tablet DAILY SANA Administration Ondansetron HCl 4 mg 02/24/25 21:49 02/24/25 22:23 Ondansetron Inj 4 Mg/2 Ml Vial IV PUSH 4 mg Q6H PRN Administration Nausea And Vomiting Pantoprazole Sodium 40 mg 02/25/25 09:00 03/01/25 08:40 Pantoprazole Sodium Iv 40 Mg Vial IV PUSH 40 mg Q12HR SANA Administration Polyethylene Glycol 17 gm 02/28/25 09:00 03/01/25 08:41 Polyethylene Glycol 3350 17 Gm Powd.Pack PO 17 gm QAM SANA Administration Senna/Docusate Sodium 1 tab 03/01/25 21:00 Senna/Docusate Sodium Tablet PO HS SANA Sodium Chloride 10 ml 02/26/25 22:00 03/01/25 13:52 Central Line Flush IV PUSH 10 ml Q8HR SANA Administration Sodium Chloride 20 ml 02/26/25 16:48 Central Line Flush IV PUSH PRN PRN after blood draws Thiamine HCl 100 mg 02/25/25 09:00 03/01/25 08:41 Thiamine Hcl 200 Mg/2 Ml Vial IV PUSH 100 mg QAM SANA Administration Radiology Results: ITS Impressions Head CT 02/28/25 14:57 IMPRESSION: 1. Persistent small left frontal scalp hematoma. No fracture or acute intracranial process. Chest X-Ray 03/01/25 06:35 IMPRESSION: Right middle and lower lobe infiltrate. Supportive lines and tubes in good position. Labs Labs: Laboratory Results - last 24 hr 02/28/25 03/01/25 03/01/25 18:25 04:46 05:07 WBC 4.2 L RBC 3.31 L Hgb 8.6 L Hct 28.1 L MCV 84.9 MCH 26.0 MCHC 30.6 L RDW 19.2 H Plt Count 202 MPV 10.0 Immature Gran % (Auto) 0.7 H Neut % (Auto) 64.1 Lymph % (Auto) 22.3 Bollinger % (Auto) 10.0 H Eos % (Auto) 2.4 Baso % (Auto) 0.5 Lymph # (Auto) 0.94 Bollinger # (Auto) 0.4 Eos # (Auto) 0.1 Baso # (Auto) 0.0 Abs Immat Gran (auto) 0.03 Absolute Neuts (auto) 2.7 Absolute Nucleated RBC 0.000 Nucleated RBC % 0.0 Puncture Site Right radial ABG pH 7.452 H ABG pCO2 38.6 ABG pO2 86.2 ABG PO2/FiO2 Ratio 2.87 ABG HCO3 26.3 H ABG O2 Saturation 96.9 ABG O2 Content 13.1 L ABG Base Excess 2.3 A-a Gradient 82.3 Oxyhemoglobin 94.8 Carboxyhemoglobin 0.6 Methemoglobin 0.3 Reduced Hemoglobin 4.3 Total Hemoglobin 9.7 L O2 Delivery Device Ventilator O2 Liters/Min Not Reportable Minute Volume Not Reportable Vent Rate 16 Vent Mode Cmv FiO2 30 Tidal Volume 400 PEEP 5 Peak Inspir Pressure Not Reportable Pressure Support Not Reportable Sodium 138 Potassium 4.1 Chloride 107 Carbon Dioxide 26 Anion Gap 5 BUN 9 Creatinine 0.58 L Estim Creat Clear Calc 171 Estimated GFR > 60 Glucose 85 POC Capillary Glucose 94 Calcium 8.3 L Phosphorus 4.2 Magnesium 2.1 Total Bilirubin < 0.1 L AST 20 ALT 10 Alkaline Phosphatase 80 Total Protein 5.6 L Albumin 3.0 L Triglycerides 100 03/01/25 11:27 WBC RBC Hgb Hct MCV MCH MCHC RDW Plt Count MPV Immature Gran % (Auto) Neut % (Auto) Lymph % (Auto) Bollinger % (Auto) Eos % (Auto) Baso % (Auto) Lymph # (Auto) Bollinger # (Auto) Eos # (Auto) Baso # (Auto) Abs Immat Gran (auto) Absolute Neuts (auto) Absolute Nucleated RBC Nucleated RBC % Puncture Site ABG pH ABG pCO2 ABG pO2 ABG PO2/FiO2 Ratio ABG HCO3 ABG O2 Saturation ABG O2 Content ABG Base Excess A-a Gradient Oxyhemoglobin Carboxyhemoglobin Methemoglobin Reduced Hemoglobin Total Hemoglobin O2 Delivery Device O2 Liters/Min Minute Volume Vent Rate Vent Mode FiO2 Tidal Volume PEEP Peak Inspir Pressure Pressure Support Sodium Potassium Chloride Carbon Dioxide Anion Gap BUN Creatinine Estim Creat Clear Calc Estimated GFR Glucose POC Capillary Glucose 104 Calcium Phosphorus Magnesium Total Bilirubin AST ALT Alkaline Phosphatase Total Protein Albumin Triglycerides
[2025-03-01] MEDS: ALTEPLASE 2 MG VIAL (CATHFLO) IV PUSH (19:01)
[2025-03-01] MEDS: dexmedeTOMIDine 400 MCG/100 ML 400 MCG/100 ML BAG 28 MCG IV CONT (20:00)
[2025-03-01] MEDS: cefTRIAXone 1 GM in SODIUM CHLORIDE 0.9% IV 50 ML 100 ML IVPB (20:08)
[2025-03-01] MEDS: SENNA/DOCUSATE SODIUM TABLET 1 TAB PO (20:09)
[2025-03-01] MEDS: racEPINEPHrine 2.25% NEBU SOLN 0.5 ML VIAL.NEB INHALATION (23:31)
[2025-03-01] MEDS: IPRATROPIUM 0.5 MG/ALBUTEROL SULFATE 2.5 MG AMPUL.NEB 3 ML INHALATION (23:31)
[2025-03-02] VITALS (34 sets, daily range): BP systolic 98–142; BP diastolic 58–84; PULSE 66–94; RESP 14–20; TEMP 36.3–37.2; O2SAT 85–100
[2025-03-02] MEDS: VALPROATE SODIUM INJ 1,000 MG in DEXTROSE 5% IN WATER 50 ML 57.5 MG IVPB ×6 (01:02→21:04)
[2025-03-02] MEDS: LORazepam INJ (*CRX) 2 MG/ML VIAL IV PUSH ×5 (01:52→05:21)
--- NOTE | 2025-03-02 04:43 | P.PNCROSS_ITS ---
Event Note Event Note Event Note: At approximately 2300 on 03/01/2025, the patient self extubated. She was on Pr ecedex and it was being uptitrated due to severe agitation. Precedex discontinued after she self extubated, she appeared lethargic. She had a hoarse voice, coarse breath sounds and expiratory wheeze. She was saturating well on room air and 2 L nasal cannula. After discussion with ornamenter hand, racemic epinephrine and DuoNeb administered. Her wheezing resolved. A few hours later, she had a seizure. Ativan 2 mg IV x1 given. After another 3 minutes an additional 2 mg was given. Her seizure broke. She was postictal. Afterwards, she rested comfortably with no respiratory distress and was arousable. She continues to be monitored closely by the ICU nursing team.
[2025-03-02 04:59] LABS: Alveolar/Arterial O2 Gradient 42.3 mmHg; Carboxyhemoglobin 0.6 % THb (0-2.0); Fractional Inspired Oxygen 24 %; HCO3 ABG 26.6 mEq/l (22.0-26.0); Methemoglobin ABG 0.3 %THb (0-1.5); Oxygen Content ABG 13.5 %vol (16.0-22.0); Oxygen Saturation ABG 96.6 % (95.0-100.0); PCO2 ABG 38.7 mmHg (35.0-45.0); PO2 ABG 82.8 mmHg (80.0-100.0); PO2 FiO2 Ratio Arterial Blood 3.45 %; Reduced Hemoglobin 4.5 %THb (0-5.0)
[2025-03-02] MEDS: levETIRAcetam 1000MG/NACL100ML 1,000 MG/100 ML BAG 400 MG IVPB ×4 (04:59→23:25)
[2025-03-02 05:00] LABS: Liters per Minute 1.0 LPM; Modified Allen's Test Pass; Site Drawn RIGHT RADIAL
[2025-03-02] MEDS: CENTRAL LINE FLUSH 10 ML IV PUSH ×3 (05:00→20:36)
[2025-03-02 05:15] LABS: Hematocrit 28.6 % (37.0-47.0); Hemoglobin 9.0 g/dL (12.0-15.0); Immature Granulocyte Percent A 0.6 % (0-0.5); Lymphocytes Absolute Auto 0.96 K/mm3 (0.9-3.2); Mean Corpuscular HGB Conc 31.5 g/dl (32-36); Mean Corpuscular Hemoglobin 26.5 pg (26-34); Mean Corpuscular Volume 84.4 fl (80-100); Nucleated Red Blood Cells Absolute Auto 0.000 K/mm3 (0.0-0.012); Nucleated Red Blood Cells Perc 0.0 % (0.0-0.2); Platelet Count Result 208 k/mm3 (150-375); Red Blood Count 3.39 M/mm3 (4.2-5.4); White Blood Count 5.0 K/mm3 (4.5-10.0)
[2025-03-02] MEDS: PROPOFOL IV EMULSION 100 ML 8.27 MG IV CONT (05:43)
[2025-03-02] MEDS: PHENYTOIN SODIUM INJ (*BKC) 1,000 MG in SODIUM CHLORIDE 0.9% IV 100 ML 360 MG IVPB (05:45)
--- NOTE | 2025-03-02 05:45 | ED.PROCEDURE ---
Procedures Intubation Intubation Date: 03/02/25 Intubation Time: 05:45 Consent: Verbal, obtained from patient. A pre-procedural Time-Out was completed immediately before starting the procedure and confirmed: Patient Identification, Site, Procedure, Patient Position and the Availability of Requisite Equipment: Yes Sedative: other (propofol) Mg given: 130 Paralytic: rocuronium Mg given: 100 Laryngoscope: fiber optic video scope ET tube size: 7.5 Tube secured depth (cm): 23 Tube secured location: lips Tube placement confirmation: visualized tube passing through cords, equal breath sounds bilaterally, no breath sounds over epigastrium and confirmation by capnometry Patient tolerated procedure: well and no complications Intubation complications: none Assessment and Plan Additional Plan Called by hospitalist due to patient having back to back extended seizures, she had self-extubated and he did feel she now required re-intubation given concern for her mental status/potential for loss of airway. Her seizure had finally started resolving with multiple doses of ativan but patient very sleepy and difficult to rouse; had seized for almost 20 min. On my eval in discussion with patient she was able to verbally agree to reintubation as she was feeling very tired; I did feel benefits of airway protection in setting of status epilepticus and respiratory depression from benzos outweighed risks of intubation. See above for procedure note; pt tolerated this well. CXR called and hospitalist Dr South remains at bedside and resumes care of patient and will follow up on the CXR results for tube placement.
[2025-03-02] MEDS: ROCURONIUM BROMIDE 50 MG/5 ML VIAL 100 MG IV PUSH (05:56)
[2025-03-02] MEDS: PROPOFOL IV EMULSION 200 MG/20 ML VIAL 130 MG IV PUSH (05:56)
[2025-03-02 06:02] LABS: Alanine Aminotransferase 11 U/L (6-35); Albumin Level 3.3 g/dL (3.5-5.1); Alkaline Phosphatase 80 U/L (38-126); Anion Gap 8 mmol/L (4-12); Aspartate Amino Transferase 23 U/L (14-36); Bilirubin,Total 0.2 mg/dL (0.2-1.3); Blood Urea Nitrogen 7 mg/dL (7-17); Calcium 8.6 mg/dL (8.4-10.2); Carbon Dioxide 23 mmol/L (22-30); Chloride 107 mmol/L (98-107); Estimated CRCL calculation 201 ml/min; Estimated Glomerular Filt Rate > 60; Glucose 82 mg/dL (65-110); Magnesium 2.0 mg/dL (1.6-2.3); Potassium 3.8 mmol/L (3.4-5.0); Sodium 138 mmol/L (137-145); Total Protein 6.1 g/dL (6.3-8.2)
[2025-03-02 07:26] LABS: Triglycerides 140 mg/dL (<150)
--- NOTE | 2025-03-02 07:44 | PC.NURSE ---
130 mg IVP propofol pushed by Dr. South with intubation. See MAR.
[2025-03-02] MEDS: MINERAL OIL/WHITE PETROLATUM OINTMENT 1 APPLIC EACH EYE ×2 (08:05→20:33)
[2025-03-02] MEDS: PANTOPRAZOLE SODIUM IV 40 MG VIAL IV PUSH ×2 (08:06→20:33)
[2025-03-02] MEDS: THERAPEUTIC MULTIVITAMINS/MINERALS TAB (*BKC) 1 TABLET PO (08:06)
[2025-03-02] MEDS: APIXABAN 5 MG TABLET PO ×2 (08:06→20:33)
[2025-03-02] MEDS: THIAMINE HCL 200 MG/2 ML VIAL 100 MG IV PUSH (08:06)
[2025-03-02] MEDS: FOLIC ACID 1 MG/0.2 ML INJ IV PUSH (08:07)
[2025-03-02] MEDS: PROPOFOL IV EMULSION 100 ML 28.94 MG IV CONT ×4 (09:38→18:20)
--- NOTE | 2025-03-02 11:26 | WPDINTPN ---
Progress Note: A&P Assessment and Plan (1) Seizure disorder: Code(s): G40.909 - Epilepsy, unspecified, not intractable, without status epilepticus Status: Chronic Assessment and Plan: 02/24: Patient was found by police having seizures in her car, upon EMS arrival patient received Versed IV, she also received multiple doses of Ativan in the ER. Patient presented with multiple seizure activity. Was admitted to IMU a she had seizure activity for approximately 24 minute, patient was intubated as she was given multiple doses of IV Versed, IV Ativan,, diazepam propofol. -valproic level is on admission was significantly low, -lamotrigine and levetiracetam levels pending -discussed with Neurology, increased Keppra to 1 g q.6 hours and valproic acid to 100 mg Q 8 hours -patient was also given 1 dose of phenobarbital 260 mg IV x1, if the seizures are associated with alcohol withdrawal, given long half life of phenobarbital -appreciate Neurology evaluation and recommendations 03/02: Early hours patient had seizures x2 lasting 12 minutes and 20 minutes, patient self extubated and was reintubated for airway protection. Received Dilantin 1000 mg IV x1 loading dose and Dilantin 100 mg IV q.8 hours. Neurology is aware -02/26: EEG: this is a normal EEG obtained during awake and Drowsy states (2) Acute hypoxic respiratory failure: Code(s): J96.01 - Acute respiratory failure with hypoxia Status: Acute Assessment and Plan: Patient was intubated for airway protection secondary to prolonged seizure activity -currently on CMV mode of ventilation, peep of 5, 30% FiO2 -chest x-ray and ABGs reviewed, ventilator adjusted, will wean FiO2 to maintain O2 sats > 92 per -patient was on Precedex confusion without any seizure activity on 03/01. -03/02 early hours patient had 2 seizures is mentioned above, self extubated after the 1st seizure, pre intubated for airway protection. Now back on propofol infusion (3) Nausea vomiting and diarrhea: Code(s): R11.2 - Nausea with vomiting, unspecified; R19.7 - Diarrhea, unspecified Status: Acute Assessment and Plan: Patient presented with nausea and vomiting also -continue Zofran PRN (4) Alcoholism: Code(s): F10.20 - Alcohol dependence, uncomplicated Status: Acute Assessment and Plan: Patient drinks 750 mL of hard liquor every day -will have to watch for alcohol withdrawal/DTs -continue folic acid and thiamine (5) Pulmonary embolism: Onset Date: 2023 Code(s): I26.99 - Other pulmonary embolism without acute cor pulmonale Status: Acute Assessment and Plan: Patient has a history of pulmonary embolism in 2023 -on Eliquis at home, will continue (6) Anxiety: Code(s): F41.9 - Anxiety disorder, unspecified Status: Chronic Assessment and Plan: Currently intubated and sedated (7) Depression: Qualifiers: Depression Type: unspecified Qualified Code(s): F32.9 - Major depressive disorder, single episode, unspecified Code(s): F32.9 - Major depressive disorder, single episode, unspecified Status: Chronic Assessment and Plan: Currently intubated and sedated (8) Illicit drug use: Code(s): F19.90 - Other psychoactive substance use, unspecified, uncomplicated Status: Acute Assessment and Plan: Patient takes synthetic heroin, opiates, cannabinoids -will watch for withdrawal Plan DVT prophylaxis: Eliquis Stress ulcer prophylaxis: Protonix Nutrition: Tube feeds restarted this morning Code Status: Full code Critical Care Time Spent: 32 minutes Due to a high probability of clinically significant, life threatening deterioration, the patient required my highest level of preparedness to intervene emergently and I personally spent this critical care time directly and personally managing the patient. This critical care time included obtaining a history; examining the patient; pulse oximetry; ordering and review of studies; arranging urgent treatment with development of a management plan; evaluation of patient's response to treatment; frequent reassessment; and discussions with other providers. It was exclusive of separately billable procedures and treating other patients and teaching time. Please see Assessment and Plan section and the rest of the note for further information on patient assessment and treatment This dictation may have been done utilizing a voice recognition system. Attempts have been made to correct errors. However, there may be uncorrected grammatical, spelling, and recognitions errors present. Subjective Date/time seen: 03/02/25 11:26 Interval history: Reason for consult: Seizures, intubated for airway protection 03/02/2025: Patient seen and examined the ICU, overnight patient did have seizures x2, 12 minutes and 20 minutes. She did self extubate, but after the 2nd seizure episode she was intubated as she received multiple doses of Ativan and was lethargic so the ER physician and hospitalist decided to reintubate her for airway protection. Patient was given Dilantin 1000 mg IV x1. Started back on propofol infusion. Review of Systems Review of Systems: ROS unobtainable: Yes unobtainable due to endotracheal tube and unobtainable due to medical condition Exam Narrative: General: Intubated and sedated in no acute distress HEENT:? Pupils equal and reactive, sclera is clear, ETT in place Neck:? Supple Respiratory:? Clear to auscultation bilaterally, no wheezing, adequate air entry Cardiac:? S1-S2 is normal, reviewed return room Abdomen:? Soft, nontender, nondistended, hypoactive bowel sounds, obese Extremities:? Trace edema bilaterally, palpable pedal pulses Neuro:? Intubated, sedated, does not open her eyes or follow simple commands Skin:? No lesions noted Psych:? Unable to assess at this time Objective Data Vital Signs Vital Signs: Vital Signs - 24 hr 03/01/25 11:30 03/01/25 12:00 03/01/25 12:00 Temperature 99.7 F H Pulse Rate 60 66 Respiratory Rate 15 16 Blood Pressure 139/73 Pulse Oximetry 98 98 Oxygen Delivery Mechanical Ventilation Oxygen Flow Rate Fraction of Inspired Oxygen 03/01/25 12:00 03/01/25 12:00 03/01/25 13:30 Temperature Pulse Rate 68 70 Respiratory Rate 15 Blood Pressure Pulse Oximetry Oxygen Delivery Oxygen Flow Rate Fraction of Inspired Oxygen 03/01/25 13:49 03/01/25 13:49 03/01/25 13:51 Temperature Pulse Rate 75 75 72 Respiratory Rate 16 16 17 Blood Pressure Pulse Oximetry Oxygen Delivery Oxygen Flow Rate Fraction of Inspired Oxygen 03/01/25 14:00 03/01/25 14:00 03/01/25 14:02 Temperature 100.2 F H Pulse Rate 70 70 71 Respiratory Rate 21 H Blood Pressure 132/70 Pulse Oximetry 100 100 Oxygen Delivery Mechanical Ventilation Oxygen Flow Rate Fraction of Inspired Oxygen 30 03/01/25 15:00 03/01/25 15:00 03/01/25 16:00 Temperature Pulse Rate 63 63 75 Respiratory Rate 16 16 25 H Blood Pressure Pulse Oximetry Oxygen Delivery Oxygen Flow Rate Fraction of Inspired Oxygen 03/01/25 16:00 03/01/25 16:00 03/01/25 16:00 Temperature 100 F H Pulse Rate 75 Respiratory Rate 25 H Blood Pressure 148/88 H Pulse Oximetry 100 100 Oxygen Delivery Mechanical Ventilation Oxygen Flow Rate Fraction of Inspired Oxygen 30 30 03/01/25 16:00 03/01/25 16:52 03/01/25 16:52 Temperature Pulse Rate 74 69 69 Respiratory Rate 18 18 Blood Pressure Pulse Oximetry Oxygen Delivery Oxygen Flow Rate Fraction of Inspired Oxygen 03/01/25 18:00 03/01/25 18:00 03/01/25 18:17 Temperature 100.3 F H Pulse Rate 56 L 54 L 54 L Respiratory Rate 22 H 23 H Blood Pressure 143/97 H Pulse Oximetry 100 Oxygen Delivery Oxygen Flow Rate Fraction of Inspired Oxygen 03/01/25 18:44 03/01/25 19:51 03/01/25 20:00 Temperature 100.2 F H Pulse Rate 73 68 Respiratory Rate 20 Blood Pressure 158/91 H Pulse Oximetry 100 100 Oxygen Delivery Mechanical Ventilation Oxygen Flow Rate Fraction of Inspired Oxygen 30 30 03/01/25 20:00 03/01/25 20:00 03/01/25 20:00 Temperature Pulse Rate 68 68 Respiratory Rate 20 20 Blood Pressure Pulse Oximetry Oxygen Delivery Oxygen Flow Rate Fraction of Inspired Oxygen 30 03/01/25 20:00 03/01/25 20:00 03/01/25 22:00 Temperature Pulse Rate 54 L 57 L Respiratory Rate 19 Blood Pressure Pulse Oximetry 100 Oxygen Delivery Mechanical Ventilation Oxygen Flow Rate Fraction of Inspired Oxygen 30 03/01/25 22:00 03/01/25 22:00 03/01/25 22:20 Temperature 100 F H Pulse Rate 57 L 57 L 52 L Respiratory Rate 19 Blood Pressure 120/81 Pulse Oximetry 100 100 Oxygen Delivery Mechanical Ventilation Oxygen Flow Rate Fraction of Inspired Oxygen 30 03/01/25 22:45 03/01/25 23:10 03/01/25 23:38 Temperature Pulse Rate 61 70 71 Respiratory Rate 20 20 20 Blood Pressure Pulse Oximetry Oxygen Delivery Oxygen Flow Rate Fraction of Inspired Oxygen 03/01/25 23:42 03/02/25 00:00 03/02/25 00:00 Temperature Pulse Rate 96 85 Respiratory Rate 20 18 Blood Pressure Pulse Oximetry 94 96 Oxygen Delivery Nasal Cannula Nasal Cannula Oxygen Flow Rate 2 2 Fraction of Inspired Oxygen 28 03/02/25 00:00 03/02/25 00:00 03/02/25 01:36 Temperature 99 F Pulse Rate 91 85 77 Respiratory Rate 18 20 Blood Pressure 142/70 H Pulse Oximetry 85 L 98 Oxygen Delivery Nasal Cannula Oxygen Flow Rate 2 Fraction of Inspired Oxygen 28 03/02/25 02:00 03/02/25 02:00 03/02/25 02:00 Temperature 98.4 F Pulse Rate 80 80 80 Respiratory Rate 19 19 Blood Pressure 118/84 Pulse Oximetry 96 Oxygen Delivery Oxygen Flow Rate Fraction of Inspired Oxygen 03/02/25 04:00 03/02/25 04:00 03/02/25 04:00 Temperature 97.4 F L Pulse Rate 73 67 Respiratory Rate 19 14 Blood Pressure 119/73 Pulse Oximetry 98 99 Oxygen Delivery Nasal Cannula Oxygen Flow Rate 2 Fraction of Inspired Oxygen 03/02/25 04:00 03/02/25 05:01 03/02/25 05:35 Temperature Pulse Rate 66 94 Respiratory Rate 20 Blood Pressure Pulse Oximetry 98 Oxygen Delivery Nasal Cannula Oxygen Flow Rate 1 Fraction of Inspired Oxygen 24 03/02/25 05:42 03/02/25 05:43 03/02/25 06:00 Temperature 97.9 F Pulse Rate 85 83 92 Respiratory Rate 15 15 Blood Pressure 125/84 Pulse Oximetry 100 96 Oxygen Delivery Mechanical Ventilation Oxygen Flow Rate Fraction of Inspired Oxygen 30 03/02/25 06:00 03/02/25 06:00 03/02/25 06:00 Temperature Pulse Rate 92 92 75 Respiratory Rate 15 15 Blood Pressure Pulse Oximetry Oxygen Delivery Oxygen Flow Rate Fraction of Inspired Oxygen 03/02/25 06:16 03/02/25 07:05 03/02/25 07:45 Temperature Pulse Rate 76 76 Respiratory Rate 15 16 Blood Pressure Pulse Oximetry 98 Oxygen Delivery Mechanical Ventilation Oxygen Flow Rate Fraction of Inspired Oxygen 30 03/02/25 08:00 03/02/25 08:00 03/02/25 08:00 Temperature 98 F Pulse Rate 74 Respiratory Rate 15 Blood Pressure 98/58 L Pulse Oximetry 100 100 Oxygen Delivery Mechanical Ventilation Oxygen Flow Rate Fraction of Inspired Oxygen 30 30 03/02/25 08:00 03/02/25 08:05 03/02/25 08:15 Temperature Pulse Rate 74 76 75 Respiratory Rate 15 Blood Pressure Pulse Oximetry 100 Oxygen Delivery Mechanical Ventilation Oxygen Flow Rate Fraction of Inspired Oxygen 30 03/02/25 09:38 03/02/25 09:38 03/02/25 10:00 Temperature Pulse Rate 77 77 84 Respiratory Rate 18 18 16 Blood Pressure Pulse Oximetry Oxygen Delivery Oxygen Flow Rate Fraction of Inspired Oxygen 03/02/25 10:00 03/02/25 10:00 Temperature 98 F Pulse Rate 83 84 Respiratory Rate 16 Blood Pressure 117/80 Pulse Oximetry 100 Oxygen Delivery Oxygen Flow Rate Fraction of Inspired Oxygen Intake/Output Intake/Output: Intake & Output 02/27/25 02/28/25 03/01/25 03/02/25 23:59 23:59 23:59 23:59 Intake Total 3924.5 4648.5 3729.8 425.3 Output Total 2200 2075 4750 1800 Balance 1724.5 2573.5 -1020.2 -1374.7 Meds/Results Medications: Active Medications Generic Name Dose Route Start Last Admin Trade Name Freq PRN Reason Stop Dose Admin Alteplase, Recombinant 2 mg 03/01/25 18:41 03/01/25 19:01 Alteplase 2 Mg Vial (Cathflo) IV PUSH 2 mg ONCE PRN Administration Line Occlusion Apixaban 5 mg 02/25/25 10:25 03/02/25 08:06 Apixaban 5 Mg Tablet PO 5 mg Q12HR SANA Administration Folic Acid 1 mg 02/25/25 09:00 03/02/25 08:07 Folic Acid 1 Mg/0.2 Ml Inj IV PUSH 1 mg QAM SANA Administration Ceftriaxone Sodium 1 gm/ 50 mls @ 100 mls/hr 02/25/25 21:00 03/01/25 20:38 Sodium Chloride IVPB 03/03/25 21:29 Infused Q24H SANA Infusion Levetiracetam 1,000 mg in 100 mls @ 400 mls/hr 02/27/25 12:00 03/02/25 05:14 Keppra Iv IVPB Infused Q6H SANA Infusion Valproate Sodium 1,000 mg/ 60 mls @ 57.5 mls/hr 02/28/25 14:00 03/02/25 10:39 Dextrose IVPB 57.5 mls/hr Q4H SANA Administration Propofol 100 mls @ 28.938 mls/hr 03/02/25 05:25 03/02/25 10:00 Diprivan IV CONT 35 mcg/kg/min .Q3H28M SANA 28.94 mls/hr Titration Protocol 35 MCG/KG/MIN Lorazepam 1 mg 02/24/25 21:49 02/24/25 22:23 Lorazepam Inj (*Crx) 2 Mg/Ml Vial IV PUSH 1 mg Q2H PRN Administration CIWA>8, HR>100, or DBP>100 Lorazepam 2 mg 02/26/25 12:32 03/02/25 05:07 Lorazepam Inj (*Crx) 2 Mg/Ml Vial IV PUSH 2 mg Q2H PRN Administration seizures Multi-Ingred Cream/Lotion/Oil/Oint 1 applic 02/25/25 09:00 03/02/25 08:05 Mineral Oil/White Petrolatum Ointment EACH EYE 1 applic Q12HR SANA Administration Multivitamins/Calcium 1 tablet 02/25/25 09:00 03/02/25 08:06 Therapeutic Multivitamins/Minerals Tab (*Bkc) PO 1 tablet DAILY SANA Administration Ondansetron HCl 4 mg 02/24/25 21:49 02/24/25 22:23 Ondansetron Inj 4 Mg/2 Ml Vial IV PUSH 4 mg Q6H PRN Administration Nausea And Vomiting Pantoprazole Sodium 40 mg 02/25/25 09:00 03/02/25 08:06 Pantoprazole Sodium Iv 40 Mg Vial IV PUSH 40 mg Q12HR SANA Administration Phenytoin Sodium 100 mg 03/02/25 14:00 Phenytoin Sodium Inj 100 Mg/2 Ml Vial (*Bkc) IV PUSH Q8HR SANA Polyethylene Glycol 17 gm 02/28/25 09:00 03/02/25 08:05 Polyethylene Glycol 3350 17 Gm Powd.Pack PO 17 gm QAM SANA Administration Senna/Docusate Sodium 1 tab 03/01/25 21:00 03/01/25 20:09 Senna/Docusate Sodium Tablet PO 1 tab HS SANA Administration Sodium Chloride 10 ml 02/26/25 22:00 03/02/25 05:00 Central Line Flush IV PUSH 10 ml Q8HR SANA Administration Sodium Chloride 20 ml 02/26/25 16:48 Central Line Flush IV PUSH PRN PRN after blood draws Thiamine HCl 100 mg 02/25/25 09:00 03/02/25 08:06 Thiamine Hcl 200 Mg/2 Ml Vial IV PUSH 100 mg QAM SANA Administration Radiology Results: ITS Impressions Head CT 02/28/25 14:57 IMPRESSION: 1. Persistent small left frontal scalp hematoma. No fracture or acute intracranial process. Chest X-Ray 03/02/25 06:54 IMPRESSION: Small right-sided pleural effusion, nonvisualization of the left costophrenic sulcus. Mild pulmonary vascular congestion without focal infiltrate. Supportive lines and tubes in good position. Labs Labs: Laboratory Results - last 24 hr 03/01/25 03/01/25 03/01/25 11:27 17:52 23:55 WBC RBC Hgb Hct MCV MCH MCHC RDW Plt Count MPV Immature Gran % (Auto) Neut % (Auto) Lymph % (Auto) [place] % (Auto) Eos % (Auto) Baso % (Auto) Lymph # (Auto) [place] # (Auto) Eos # (Auto) Baso # (Auto) Abs Immat Gran (auto) Absolute Neuts (auto) Absolute Nucleated RBC Nucleated RBC % Puncture Site ABG pH ABG pCO2 ABG pO2 ABG PO2/FiO2 Ratio ABG HCO3 ABG O2 Saturation ABG O2 Content ABG Base Excess A-a Gradient Oxyhemoglobin Carboxyhemoglobin Methemoglobin Reduced Hemoglobin Total Hemoglobin O2 Delivery Device O2 Liters/Min FiO2 Sodium Potassium Chloride Carbon Dioxide Anion Gap BUN Creatinine Estim Creat Clear Calc Estimated GFR Glucose POC Capillary Glucose 104 115 H 112 H Calcium Phosphorus Magnesium Total Bilirubin AST ALT Alkaline Phosphatase Total Protein Albumin Triglycerides 03/02/25 03/02/25 04:51 04:56 WBC 5.0 RBC 3.39 L Hgb 9.0 L Hct 28.6 L MCV 84.4 MCH 26.5 MCHC 31.5 L RDW 18.3 H Plt Count 208 MPV 9.9 Immature Gran % (Auto) 0.6 H Neut % (Auto) 66.7 Lymph % (Auto) 19.1 [place] % (Auto) 11.8 H Eos % (Auto) 1.4 Baso % (Auto) 0.4 Lymph # (Auto) 0.96 [place] # (Auto) 0.6 Eos # (Auto) 0.1 Baso # (Auto) 0.0 Abs Immat Gran (auto) 0.03 Absolute Neuts (auto) 3.4 Absolute Nucleated RBC 0.000 Nucleated RBC % 0.0 Puncture Site Right radial ABG pH 7.455 H ABG pCO2 38.7 ABG pO2 82.8 ABG PO2/FiO2 Ratio 3.45 ABG HCO3 26.6 H ABG O2 Saturation 96.6 ABG O2 Content 13.5 L ABG Base Excess 2.6 A-a Gradient 42.3 Oxyhemoglobin 94.6 Carboxyhemoglobin 0.6 Methemoglobin 0.3 Reduced Hemoglobin 4.5 Total Hemoglobin 10.1 L O2 Delivery Device Nasal cannula O2 Liters/Min 1.0 FiO2 24 Sodium 138 Potassium 3.8 Chloride 107 Carbon Dioxide 23 Anion Gap 8 BUN 7 Creatinine 0.48 L Estim Creat Clear Calc 201 Estimated GFR > 60 Glucose 82 POC Capillary Glucose Calcium 8.6 Phosphorus 4.5 Magnesium 2.0 Total Bilirubin 0.2 AST 23 ALT 11 Alkaline Phosphatase 80 Total Protein 6.1 L Albumin 3.3 L Triglycerides 140 Quality VTE Prophylaxis VTE prophylaxis: pharmacologic ordered
[2025-03-02] MEDS: PHENYTOIN SODIUM INJ 100 MG/2 ML VIAL (*BKC) IV PUSH ×2 (13:02→21:01)
--- NOTE | 2025-03-02 13:32 | PM.IMPN ---
Progress Note: A&P Assessment and Plan (1) Seizure disorder: Code(s): G40.909 - Epilepsy, unspecified, not intractable, without status epilepticus Status: Chronic Assessment and Plan: 02/24: Patient was found by police having seizures in her car, upon EMS arrival patient received Versed IV, she also received multiple doses of Ativan in the ER. Patient presented with multiple seizure activity. Was admitted to IMU a she had seizure activity for approximately 24 minute, patient was intubated as she was given multiple doses of IV Versed, IV Ativan,, diazepam propofol. -valproic level is on admission was significantly low, -lamotrigine and levetiracetam levels pending -discussed with Neurology, increased Keppra to 1 g q.6 hours and valproic acid to 1000mg Q 4 hours and Phenytoin 100mg q8h -patient was also given 1 dose of phenobarbital 260 mg IV x1, if the seizures are associated with alcohol withdrawal, given long half life of phenobarbital -appreciate Neurology evaluation and recommendations 03/02: Early hours patient had seizures x2 lasting 12 minutes and 20 minutes, patient self extubated and was reintubated for airway protection. Received Dilantin 1000 mg IV x1 loading dose and Dilantin 100 mg IV q.8 hours. Neurology is aware will discuss continuous eeg with clinical services specialist and neurology (2) Acute hypoxic respiratory failure: Code(s): J96.01 - Acute respiratory failure with hypoxia Status: Acute Assessment and Plan: Patient was intubated for airway protection secondary to prolonged seizure activity -currently on CMV mode of ventilation, peep of 5, 30% FiO2 -chest x-ray and ABGs reviewed, ventilator adjusted, will wean FiO2 to maintain O2 sats > 92 per -patient was on Precedex confusion without any seizure activity on 03/01. -03/02 early hours patient had 2 seizures is mentioned above, self extubated after the 1st seizure, pre intubated for airway protection. Now back on propofol infusion (3) Nausea vomiting and diarrhea: Code(s): R11.2 - Nausea with vomiting, unspecified; R19.7 - Diarrhea, unspecified Status: Acute Assessment and Plan: Patient presented with nausea and vomiting also -continue Zofran PRN (4) Alcoholism: Code(s): F10.20 - Alcohol dependence, uncomplicated Status: Acute Assessment and Plan: Patient drinks 750 mL of hard liquor every day -will have to watch for alcohol withdrawal/DTs -continue folic acid and thiamine (5) Pulmonary embolism: Onset Date: 2023 Code(s): I26.99 - Other pulmonary embolism without acute cor pulmonale Status: Acute Assessment and Plan: Patient has a history of pulmonary embolism in 2023 -on Eliquis at home, will continue (6) Anxiety: Code(s): F41.9 - Anxiety disorder, unspecified Status: Chronic Assessment and Plan: Currently intubated and sedated (7) Depression: Qualifiers: Depression Type: unspecified Qualified Code(s): F32.9 - Major depressive disorder, single episode, unspecified Code(s): F32.9 - Major depressive disorder, single episode, unspecified Status: Chronic Assessment and Plan: Currently intubated and sedated (8) Illicit drug use: Code(s): F19.90 - Other psychoactive substance use, unspecified, uncomplicated Status: Acute Assessment and Plan: Patient takes synthetic heroin, opiates, cannabinoids -will watch for withdrawal Plan DVT prophylaxis: Eliquis Stress ulcer prophylaxis: Protonix Nutrition: Tube feeds restarted this morning Code Status: Full code Subjective Date/time seen: 03/02/25 13:32 Interval history: intubated Janie self extubated last night and had another seizure overnight and was reintubated Review of Systems Review of Systems: 12 systems were reviewed with pertinent positives and negatives per HPI. Except as documented in the HPI, all other systems were reviewed and are negative. Exam Narrative: General: Intubated and sedated in no acute distress HEENT:? Pupils equal and reactive, sclera is clear, ETT in place Neck:? Supple Respiratory:? Clear to auscultation bilaterally, no wheezing, adequate air entry Cardiac:? S1-S2 is normal, reviewed return room Abdomen:? Soft, nontender, nondistended, hypoactive bowel sounds, obese Extremities:? Trace edema bilaterally, palpable pedal pulses Neuro:? Intubated, sedated, does not open her eyes or follow simple commands Skin:? No lesions noted Psych:? Unable to assess at this time Const: Other: Acutely ill-appearing, appears older than stated age, morbidly obese HENMT: Other: Mucous membranes are dry, crowded posterior oropharynx, no oral pharyngeal erythema Eyes: Other: Pupils are equal but constricted, no scleral icterus, no conjunctival pallor, extra movements intact Neck: Other: Large neck circumference, no lymphadenopathy Resp: Other: Clear to auscultation bilaterally, no increased work of breathing Cardio: Other: Sinus tachycardia, 2+ bilateral radial pedal pulses, no murmur GI: Other: Obese, generalized tenderness palpation, soft, normoactive bowel sounds Skin: Other: Warm to touch, diaphoretic, tattoo left medial forearm Neuro: Other: Alert orient x4, speech is clear, no facial asymmetry Objective Data Vital Signs Vital Signs: Vital Signs - 24 hr 03/01/25 13:49 03/01/25 13:49 03/01/25 13:51 Temperature Pulse Rate 75 75 72 Respiratory Rate 16 16 17 Blood Pressure Pulse Oximetry Oxygen Delivery Oxygen Flow Rate Fraction of Inspired Oxygen 03/01/25 14:00 03/01/25 14:00 03/01/25 14:02 Temperature 100.2 F H Pulse Rate 70 70 71 Respiratory Rate 21 H Blood Pressure 132/70 Pulse Oximetry 100 100 Oxygen Delivery Mechanical Ventilation Oxygen Flow Rate Fraction of Inspired Oxygen 30 03/01/25 15:00 03/01/25 15:00 03/01/25 16:00 Temperature Pulse Rate 63 63 75 Respiratory Rate 16 16 25 H Blood Pressure Pulse Oximetry Oxygen Delivery Oxygen Flow Rate Fraction of Inspired Oxygen 03/01/25 16:00 03/01/25 16:00 03/01/25 16:00 Temperature 100 F H Pulse Rate 75 Respiratory Rate 25 H Blood Pressure 148/88 H Pulse Oximetry 100 100 Oxygen Delivery Mechanical Ventilation Oxygen Flow Rate Fraction of Inspired Oxygen 30 30 03/01/25 16:00 03/01/25 16:52 03/01/25 16:52 Temperature Pulse Rate 74 69 69 Respiratory Rate 18 18 Blood Pressure Pulse Oximetry Oxygen Delivery Oxygen Flow Rate Fraction of Inspired Oxygen 03/01/25 18:00 03/01/25 18:00 03/01/25 18:17 Temperature 100.3 F H Pulse Rate 56 L 54 L 54 L Respiratory Rate 22 H 23 H Blood Pressure 143/97 H Pulse Oximetry 100 Oxygen Delivery Oxygen Flow Rate Fraction of Inspired Oxygen 03/01/25 18:44 03/01/25 19:51 03/01/25 20:00 Temperature 100.2 F H Pulse Rate 73 68 Respiratory Rate 20 Blood Pressure 158/91 H Pulse Oximetry 100 100 Oxygen Delivery Mechanical Ventilation Oxygen Flow Rate Fraction of Inspired Oxygen 30 30 03/01/25 20:00 03/01/25 20:00 03/01/25 20:00 Temperature Pulse Rate 68 68 Respiratory Rate 20 20 Blood Pressure Pulse Oximetry Oxygen Delivery Oxygen Flow Rate Fraction of Inspired Oxygen 30 03/01/25 20:00 03/01/25 20:00 03/01/25 22:00 Temperature Pulse Rate 54 L 57 L Respiratory Rate 19 Blood Pressure Pulse Oximetry 100 Oxygen Delivery Mechanical Ventilation Oxygen Flow Rate Fraction of Inspired Oxygen 30 03/01/25 22:00 03/01/25 22:00 03/01/25 22:20 Temperature 100 F H Pulse Rate 57 L 57 L 52 L Respiratory Rate 19 Blood Pressure 120/81 Pulse Oximetry 100 100 Oxygen Delivery Mechanical Ventilation Oxygen Flow Rate Fraction of Inspired Oxygen 30 03/01/25 22:45 03/01/25 23:10 03/01/25 23:38 Temperature Pulse Rate 61 70 71 Respiratory Rate 20 20 20 Blood Pressure Pulse Oximetry Oxygen Delivery Oxygen Flow Rate Fraction of Inspired Oxygen 03/01/25 23:42 03/02/25 00:00 03/02/25 00:00 Temperature Pulse Rate 96 85 Respiratory Rate 20 18 Blood Pressure Pulse Oximetry 94 96 Oxygen Delivery Nasal Cannula Nasal Cannula Oxygen Flow Rate 2 2 Fraction of Inspired Oxygen 03/02/25 00:00 03/02/25 00:00 03/02/25 01:36 Temperature 99 F Pulse Rate 91 85 77 Respiratory Rate 18 20 Blood Pressure 142/70 H Pulse Oximetry 85 L 98 Oxygen Delivery Nasal Cannula Oxygen Flow Rate 2 Fraction of Inspired Oxygen 28 03/02/25 02:00 03/02/25 02:00 03/02/25 02:00 Temperature 98.4 F Pulse Rate 80 80 80 Respiratory Rate 19 19 Blood Pressure 118/84 Pulse Oximetry 96 Oxygen Delivery Oxygen Flow Rate Fraction of Inspired Oxygen 03/02/25 04:00 03/02/25 04:00 03/02/25 04:00 Temperature 97.4 F L Pulse Rate 73 67 Respiratory Rate 19 14 Blood Pressure 119/73 Pulse Oximetry 98 99 Oxygen Delivery Nasal Cannula Oxygen Flow Rate 2 Fraction of Inspired Oxygen 03/02/25 04:00 03/02/25 05:01 03/02/25 05:35 Temperature Pulse Rate 66 94 Respiratory Rate 20 Blood Pressure Pulse Oximetry 98 Oxygen Delivery Nasal Cannula Oxygen Flow Rate 1 Fraction of Inspired Oxygen 24 30 03/02/25 05:42 03/02/25 05:43 03/02/25 06:00 Temperature 97.9 F Pulse Rate 85 83 92 Respiratory Rate 15 15 Blood Pressure 125/84 Pulse Oximetry 100 96 Oxygen Delivery Mechanical Ventilation Oxygen Flow Rate Fraction of Inspired Oxygen 30 03/02/25 06:00 03/02/25 06:00 03/02/25 06:00 Temperature Pulse Rate 92 92 75 Respiratory Rate 15 15 Blood Pressure Pulse Oximetry Oxygen Delivery Oxygen Flow Rate Fraction of Inspired Oxygen 03/02/25 06:16 03/02/25 07:05 03/02/25 07:45 Temperature Pulse Rate 76 76 Respiratory Rate 15 16 Blood Pressure Pulse Oximetry 98 Oxygen Delivery Mechanical Ventilation Oxygen Flow Rate Fraction of Inspired Oxygen 30 03/02/25 08:00 03/02/25 08:00 03/02/25 08:00 Temperature 98 F Pulse Rate 74 Respiratory Rate 15 Blood Pressure 98/58 L Pulse Oximetry 100 100 Oxygen Delivery Mechanical Ventilation Oxygen Flow Rate Fraction of Inspired Oxygen 30 30 03/02/25 08:00 03/02/25 08:05 03/02/25 08:15 Temperature Pulse Rate 74 76 75 Respiratory Rate 15 Blood Pressure Pulse Oximetry 100 Oxygen Delivery Mechanical Ventilation Oxygen Flow Rate Fraction of Inspired Oxygen 30 03/02/25 09:38 03/02/25 09:38 03/02/25 10:00 Temperature Pulse Rate 77 77 84 Respiratory Rate 18 18 16 Blood Pressure Pulse Oximetry Oxygen Delivery Oxygen Flow Rate Fraction of Inspired Oxygen 03/02/25 10:00 03/02/25 10:00 03/02/25 11:01 Temperature 98 F Pulse Rate 83 84 81 Respiratory Rate 16 Blood Pressure 117/80 Pulse Oximetry 100 100 Oxygen Delivery Mechanical Ventilation Oxygen Flow Rate Fraction of Inspired Oxygen 30 03/02/25 12:00 03/02/25 12:00 03/02/25 12:00 Temperature 98.1 F Pulse Rate 81 Respiratory Rate 16 Blood Pressure 115/73 Pulse Oximetry 100 100 Oxygen Delivery Mechanical Ventilation Oxygen Flow Rate Fraction of Inspired Oxygen 30 30 03/02/25 12:00 03/02/25 12:00 03/02/25 12:56 Temperature Pulse Rate 80 78 83 Respiratory Rate 16 15 Blood Pressure Pulse Oximetry Oxygen Delivery Oxygen Flow Rate Fraction of Inspired Oxygen 03/02/25 12:56 Temperature Pulse Rate 83 Respiratory Rate 15 Blood Pressure Pulse Oximetry Oxygen Delivery Oxygen Flow Rate Fraction of Inspired Oxygen Intake/Output Intake/Output: Intake & Output 02/27/25 02/28/25 03/01/25 03/02/25 23:59 23:59 23:59 23:59 Intake Total 3924.5 4648.5 3729.8 670.2 Output Total 2200 2075 4750 1800 Balance 1724.5 2573.5 -1020.2 -1129.8 Meds/Results Medications: Active Medications Generic Name Dose Route Start Last Admin Trade Name Freq PRN Reason Stop Dose Admin Alteplase, Recombinant 2 mg 03/01/25 18:41 03/01/25 19:01 Alteplase 2 Mg Vial (Cathflo) IV PUSH 2 mg ONCE PRN Administration Line Occlusion Apixaban 5 mg 02/25/25 10:25 03/02/25 08:06 Apixaban 5 Mg Tablet PO 5 mg Q12HR SANA Administration Folic Acid 1 mg 02/25/25 09:00 03/02/25 08:07 Folic Acid 1 Mg/0.2 Ml Inj IV PUSH 1 mg QAM SANA Administration Ceftriaxone Sodium 1 gm/ 50 mls @ 100 mls/hr 02/25/25 21:00 03/01/25 20:38 Sodium Chloride IVPB 03/03/25 21:29 Infused Q24H SANA Infusion Levetiracetam 1,000 mg in 100 mls @ 400 mls/hr 02/27/25 12:00 03/02/25 12:05 Keppra Iv IVPB Infused Q6H SANA Infusion Valproate Sodium 1,000 mg/ 60 mls @ 57.5 mls/hr 02/28/25 14:00 03/02/25 11:42 Dextrose IVPB Infused Q4H SANA Infusion Propofol 100 mls @ 28.938 mls/hr 03/02/25 05:25 03/02/25 12:56 Diprivan IV CONT 35 mcg/kg/min .Q3H28M SANA 28.94 mls/hr Administration Protocol 35 MCG/KG/MIN Lorazepam 1 mg 02/24/25 21:49 02/24/25 22:23 Lorazepam Inj (*Crx) 2 Mg/Ml Vial IV PUSH 1 mg Q2H PRN Administration CIWA>8, HR>100, or DBP>100 Lorazepam 2 mg 02/26/25 12:32 03/02/25 05:07 Lorazepam Inj (*Crx) 2 Mg/Ml Vial IV PUSH 2 mg Q2H PRN Administration seizures Multi-Ingred Cream/Lotion/Oil/Oint 1 applic 02/25/25 09:00 03/02/25 08:05 Mineral Oil/White Petrolatum Ointment EACH EYE 1 applic Q12HR SANA Administration Multivitamins/Calcium 1 tablet 02/25/25 09:00 03/02/25 08:06 Therapeutic Multivitamins/Minerals Tab (*Bkc) PO 1 tablet DAILY SANA Administration Ondansetron HCl 4 mg 02/24/25 21:49 02/24/25 22:23 Ondansetron Inj 4 Mg/2 Ml Vial IV PUSH 4 mg Q6H PRN Administration Nausea And Vomiting Pantoprazole Sodium 40 mg 02/25/25 09:00 03/02/25 08:06 Pantoprazole Sodium Iv 40 Mg Vial IV PUSH 40 mg Q12HR SANA Administration Phenytoin Sodium 100 mg 03/02/25 14:00 03/02/25 13:02 Phenytoin Sodium Inj 100 Mg/2 Ml Vial (*Bkc) IV PUSH 100 mg Q8HR SANA Administration Polyethylene Glycol 17 gm 02/28/25 09:00 03/02/25 08:05 Polyethylene Glycol 3350 17 Gm Powd.Pack PO 17 gm QAM SANA Administration Senna/Docusate Sodium 1 tab 03/01/25 21:00 03/01/25 20:09 Senna/Docusate Sodium Tablet PO 1 tab HS SANA Administration Sodium Chloride 10 ml 02/26/25 22:00 03/02/25 12:59 Central Line Flush IV PUSH 10 ml Q8HR SANA Administration Sodium Chloride 20 ml 02/26/25 16:48 Central Line Flush IV PUSH PRN PRN after blood draws Thiamine HCl 100 mg 02/25/25 09:00 03/02/25 08:06 Thiamine Hcl 200 Mg/2 Ml Vial IV PUSH 100 mg QAM SANA Administration Radiology Results: ITS Impressions Head CT 02/28/25 14:57 IMPRESSION: 1. Persistent small left frontal scalp hematoma. No fracture or acute intracranial process. Chest X-Ray 03/02/25 06:54 IMPRESSION: Small right-sided pleural effusion, nonvisualization of the left costophrenic sulcus. Mild pulmonary vascular congestion without focal infiltrate. Supportive lines and tubes in good position. Labs Labs: Laboratory Results - last 24 hr 03/01/25 03/01/25 03/02/25 17:52 23:55 04:51 WBC RBC Hgb Hct MCV MCH MCHC RDW Plt Count MPV Immature Gran % (Auto) Neut % (Auto) Lymph % (Auto) [place] % (Auto) Eos % (Auto) Baso % (Auto) Lymph # (Auto) [place] # (Auto) Eos # (Auto) Baso # (Auto) Abs Immat Gran (auto) Absolute Neuts (auto) Absolute Nucleated RBC Nucleated RBC % Puncture Site Right radial ABG pH 7.455 H ABG pCO2 38.7 ABG pO2 82.8 ABG PO2/FiO2 Ratio 3.45 ABG HCO3 26.6 H ABG O2 Saturation 96.6 ABG O2 Content 13.5 L ABG Base Excess 2.6 A-a Gradient 42.3 Oxyhemoglobin 94.6 Carboxyhemoglobin 0.6 Methemoglobin 0.3 Reduced Hemoglobin 4.5 Total Hemoglobin 10.1 L O2 Delivery Device Nasal cannula O2 Liters/Min 1.0 FiO2 24 Sodium Potassium Chloride Carbon Dioxide Anion Gap BUN Creatinine Estim Creat Clear Calc Estimated GFR Glucose POC Capillary Glucose 115 H 112 H Calcium Phosphorus Magnesium Total Bilirubin AST ALT Alkaline Phosphatase Total Protein Albumin Triglycerides 03/02/25 03/02/25 04:56 11:51 WBC 5.0 RBC 3.39 L Hgb 9.0 L Hct 28.6 L MCV 84.4 MCH 26.5 MCHC 31.5 L RDW 18.3 H Plt Count 208 MPV 9.9 Immature Gran % (Auto) 0.6 H Neut % (Auto) 66.7 Lymph % (Auto) 19.1 [place] % (Auto) 11.8 H Eos % (Auto) 1.4 Baso % (Auto) 0.4 Lymph # (Auto) 0.96 [place] # (Auto) 0.6 Eos # (Auto) 0.1 Baso # (Auto) 0.0 Abs Immat Gran (auto) 0.03 Absolute Neuts (auto) 3.4 Absolute Nucleated RBC 0.000 Nucleated RBC % 0.0 Puncture Site ABG pH ABG pCO2 ABG pO2 ABG PO2/FiO2 Ratio ABG HCO3 ABG O2 Saturation ABG O2 Content ABG Base Excess A-a Gradient Oxyhemoglobin Carboxyhemoglobin Methemoglobin Reduced Hemoglobin Total Hemoglobin O2 Delivery Device O2 Liters/Min FiO2 Sodium 138 Potassium 3.8 Chloride 107 Carbon Dioxide 23 Anion Gap 8 BUN 7 Creatinine 0.48 L Estim Creat Clear Calc 201 Estimated GFR > 60 Glucose 82 POC Capillary Glucose 91 Calcium 8.6 Phosphorus 4.5 Magnesium 2.0 Total Bilirubin 0.2 AST 23 ALT 11 Alkaline Phosphatase 80 Total Protein 6.1 L Albumin 3.3 L Triglycerides 140 Quality VTE Prophylaxis VTE prophylaxis: pharmacologic ordered
--- NOTE | 2025-03-02 16:45 | WPDNEUROPN ---
Progress Note: A&P Assessment and Plan (1) Seizure disorder: Code(s): G40.909 - Epilepsy, unspecified, not intractable, without status epilepticus Status: Chronic (2) Head injury: Qualifiers: Encounter type: subsequent encounter Qualified Code(s): S09.90XD - Unspecified injury of head, subsequent encounter Code(s): S09.90XA - Unspecified injury of head, initial encounter Status: Acute (3) Alcoholism: Code(s): F10.20 - Alcohol dependence, uncomplicated Status: Acute (4) Opiate abuse, episodic: Code(s): F11.10 - Opioid abuse, uncomplicated Status: Acute (5) Illicit drug use: Code(s): F19.90 - Other psychoactive substance use, unspecified, uncomplicated Status: Acute (6) Obesity (BMI 30.0-34.9): Code(s): E66.9 - Obesity, unspecified Status: Acute Plan Patient also on thiamine 100 mg IV in addition to Keppra 4 g a day and valproic acid 4 g a day and Dilantin 300 mg a day. We should check her blood levels tomorrow morning. I should be glad to follow up. Subjective Date/time seen: 03/02/25 16:45 Interval history: 29 years old with history drug and alcohol abuse in traumatic brain injury and seizure disorder and gastric bypass surgery was seen for follow-up. Patient is once again intubated. I learned that patient extubated herself and had seizures and has now been reintubated and started back on all the medications including Keppra 4 g a day and valproic acid 4 g a day. Dilantin was also given a loading dose and maintenance dose at this time. Subsequent to this she has not been had any seizures Review of Systems Review of Systems: ROS unobtainable: Yes unobtainable due to mental status Exam Narrative: the patient is currently intubated and unable to cooperate for in examination. She appears asleep. She is on number of medications including anticonvulsants. Objective Data Vital Signs Vital Signs: Vital Signs - 24 hr 03/01/25 16:52 03/01/25 16:52 03/01/25 18:00 Temperature Pulse Rate 69 69 56 L Respiratory Rate 18 18 Blood Pressure Pulse Oximetry Oxygen Delivery Oxygen Flow Rate Fraction of Inspired Oxygen 03/01/25 18:00 03/01/25 18:17 03/01/25 18:44 Temperature 100.3 F H Pulse Rate 54 L 54 L Respiratory Rate 22 H 23 H Blood Pressure 143/97 H Pulse Oximetry 100 Oxygen Delivery Oxygen Flow Rate Fraction of Inspired Oxygen 30 03/01/25 19:51 03/01/25 20:00 03/01/25 20:00 Temperature 100.2 F H Pulse Rate 73 68 68 Respiratory Rate 20 20 Blood Pressure 158/91 H Pulse Oximetry 100 100 Oxygen Delivery Mechanical Ventilation Oxygen Flow Rate Fraction of Inspired Oxygen 30 03/01/25 20:00 03/01/25 20:00 03/01/25 20:00 Temperature Pulse Rate 68 Respiratory Rate 20 Blood Pressure Pulse Oximetry 100 Oxygen Delivery Mechanical Ventilation Oxygen Flow Rate Fraction of Inspired Oxygen 30 30 03/01/25 20:00 03/01/25 22:00 03/01/25 22:00 Temperature 100 F H Pulse Rate 54 L 57 L 57 L Respiratory Rate 19 19 Blood Pressure 120/81 Pulse Oximetry 100 Oxygen Delivery Oxygen Flow Rate Fraction of Inspired Oxygen 03/01/25 22:00 03/01/25 22:20 03/01/25 22:45 Temperature Pulse Rate 57 L 52 L 61 Respiratory Rate 20 Blood Pressure Pulse Oximetry 100 Oxygen Delivery Mechanical Ventilation Oxygen Flow Rate Fraction of Inspired Oxygen 30 03/01/25 23:10 03/01/25 23:38 03/01/25 23:42 Temperature Pulse Rate 70 71 96 Respiratory Rate 20 20 20 Blood Pressure Pulse Oximetry 94 Oxygen Delivery Nasal Cannula Oxygen Flow Rate 2 Fraction of Inspired Oxygen 03/02/25 00:00 03/02/25 00:00 03/02/25 00:00 Temperature Pulse Rate 85 91 Respiratory Rate 18 Blood Pressure Pulse Oximetry 96 Oxygen Delivery Nasal Cannula Oxygen Flow Rate 2 Fraction of Inspired Oxygen 03/02/25 00:00 03/02/25 01:36 03/02/25 02:00 Temperature 99 F Pulse Rate 85 77 80 Respiratory Rate 18 20 Blood Pressure 142/70 H Pulse Oximetry 85 L 98 Oxygen Delivery Nasal Cannula Oxygen Flow Rate 2 Fraction of Inspired Oxygen 03/02/25 02:00 03/02/25 02:00 03/02/25 04:00 Temperature 98.4 F 97.4 F L Pulse Rate 80 80 73 Respiratory Rate 19 19 19 Blood Pressure 118/84 119/73 Pulse Oximetry 96 98 Oxygen Delivery Oxygen Flow Rate Fraction of Inspired Oxygen 03/02/25 04:00 03/02/25 04:00 03/02/25 04:00 Temperature Pulse Rate 67 66 Respiratory Rate 14 Blood Pressure Pulse Oximetry 99 Oxygen Delivery Nasal Cannula Oxygen Flow Rate 2 Fraction of Inspired Oxygen 03/02/25 05:01 03/02/25 05:35 03/02/25 05:42 Temperature Pulse Rate 94 85 Respiratory Rate 20 Blood Pressure Pulse Oximetry 98 100 Oxygen Delivery Nasal Cannula Mechanical Ventilation Oxygen Flow Rate 1 Fraction of Inspired Oxygen 24 30 30 03/02/25 05:43 03/02/25 06:00 03/02/25 06:00 Temperature 97.9 F Pulse Rate 83 92 92 Respiratory Rate 15 15 15 Blood Pressure 125/84 Pulse Oximetry 96 Oxygen Delivery Oxygen Flow Rate Fraction of Inspired Oxygen 03/02/25 06:00 03/02/25 06:00 03/02/25 06:16 Temperature Pulse Rate 92 75 Respiratory Rate 15 Blood Pressure Pulse Oximetry 98 Oxygen Delivery Mechanical Ventilation Oxygen Flow Rate Fraction of Inspired Oxygen 30 03/02/25 07:05 03/02/25 07:45 03/02/25 08:00 Temperature Pulse Rate 76 76 Respiratory Rate 15 16 Blood Pressure Pulse Oximetry 100 Oxygen Delivery Mechanical Ventilation Oxygen Flow Rate Fraction of Inspired Oxygen 30 03/02/25 08:00 03/02/25 08:00 03/02/25 08:00 Temperature 98 F Pulse Rate 74 74 Respiratory Rate 15 Blood Pressure 98/58 L Pulse Oximetry 100 Oxygen Delivery Oxygen Flow Rate Fraction of Inspired Oxygen 30 03/02/25 08:05 03/02/25 08:15 03/02/25 09:38 Temperature Pulse Rate 76 75 77 Respiratory Rate 15 18 Blood Pressure Pulse Oximetry 100 Oxygen Delivery Mechanical Ventilation Oxygen Flow Rate Fraction of Inspired Oxygen 30 03/02/25 09:38 03/02/25 10:00 03/02/25 10:00 Temperature 98 F Pulse Rate 77 84 83 Respiratory Rate 18 16 16 Blood Pressure 117/80 Pulse Oximetry 100 Oxygen Delivery Oxygen Flow Rate Fraction of Inspired Oxygen 03/02/25 10:00 03/02/25 11:01 03/02/25 12:00 Temperature Pulse Rate 84 81 Respiratory Rate Blood Pressure Pulse Oximetry 100 100 Oxygen Delivery Mechanical Ventilation Mechanical Ventilation Oxygen Flow Rate Fraction of Inspired Oxygen 30 30 03/02/25 12:00 03/02/25 12:00 03/02/25 12:00 Temperature 98.1 F Pulse Rate 81 80 Respiratory Rate 16 16 Blood Pressure 115/73 Pulse Oximetry 100 Oxygen Delivery Oxygen Flow Rate Fraction of Inspired Oxygen 30 03/02/25 12:00 03/02/25 12:56 03/02/25 12:56 Temperature Pulse Rate 78 83 83 Respiratory Rate 15 15 Blood Pressure Pulse Oximetry Oxygen Delivery Oxygen Flow Rate Fraction of Inspired Oxygen 03/02/25 14:00 03/02/25 14:00 03/02/25 14:00 Temperature 98.2 F Pulse Rate 82 83 83 Respiratory Rate 15 15 Blood Pressure 111/65 Pulse Oximetry 99 Oxygen Delivery Oxygen Flow Rate Fraction of Inspired Oxygen 03/02/25 14:02 03/02/25 15:58 03/02/25 15:58 Temperature Pulse Rate 81 84 84 Respiratory Rate 16 16 Blood Pressure Pulse Oximetry 100 Oxygen Delivery Mechanical Ventilation Oxygen Flow Rate Fraction of Inspired Oxygen 30 03/02/25 16:00 03/02/25 16:00 03/02/25 16:00 Temperature 98.3 F Pulse Rate 87 Respiratory Rate 16 Blood Pressure 114/67 Pulse Oximetry 99 99 Oxygen Delivery Mechanical Ventilation Oxygen Flow Rate Fraction of Inspired Oxygen 30 30 03/02/25 16:00 Temperature Pulse Rate 85 Respiratory Rate Blood Pressure Pulse Oximetry Oxygen Delivery Oxygen Flow Rate Fraction of Inspired Oxygen Intake/Output Intake/Output: Intake & Output 02/27/25 02/28/25 03/01/25 03/02/25 23:59 23:59 23:59 23:59 Intake Total 3924.5 4648.5 3729.8 818.0 Output Total 2200 2075 4750 1800 Balance 1724.5 2573.5 -1020.2 -982.0 Meds/Results Medications: Active Medications Generic Name Dose Route Start Last Admin Trade Name Freq PRN Reason Stop Dose Admin Alteplase, Recombinant 2 mg 03/01/25 18:41 03/01/25 19:01 Alteplase 2 Mg Vial (Cathflo) IV PUSH 2 mg ONCE PRN Administration Line Occlusion Apixaban 5 mg 02/25/25 10:25 03/02/25 08:06 Apixaban 5 Mg Tablet PO 5 mg Q12HR SANA Administration Folic Acid 1 mg 02/25/25 09:00 03/02/25 08:07 Folic Acid 1 Mg/0.2 Ml Inj IV PUSH 1 mg QAM SANA Administration Ceftriaxone Sodium 1 gm/ 50 mls @ 100 mls/hr 02/25/25 21:00 03/01/25 20:38 Sodium Chloride IVPB 03/03/25 21:29 Infused Q24H SANA Infusion Levetiracetam 1,000 mg in 100 mls @ 400 mls/hr 02/27/25 12:00 03/02/25 12:05 Keppra Iv IVPB Infused Q6H SANA Infusion Valproate Sodium 1,000 mg/ 60 mls @ 57.5 mls/hr 02/28/25 14:00 03/02/25 14:37 Dextrose IVPB Infused Q4H SANA Infusion Propofol 100 mls @ 28.938 mls/hr 03/02/25 05:25 03/02/25 15:58 Diprivan IV CONT 35 mcg/kg/min .Q3H28M SANA 28.94 mls/hr Administration Protocol 35 MCG/KG/MIN Lorazepam 1 mg 02/24/25 21:49 02/24/25 22:23 Lorazepam Inj (*Crx) 2 Mg/Ml Vial IV PUSH 1 mg Q2H PRN Administration CIWA>8, HR>100, or DBP>100 Lorazepam 2 mg 02/26/25 12:32 03/02/25 05:07 Lorazepam Inj (*Crx) 2 Mg/Ml Vial IV PUSH 2 mg Q2H PRN Administration seizures Multi-Ingred Cream/Lotion/Oil/Oint 1 applic 02/25/25 09:00 03/02/25 08:05 Mineral Oil/White Petrolatum Ointment EACH EYE 1 applic Q12HR SANA Administration Multivitamins/Calcium 1 tablet 02/25/25 09:00 03/02/25 08:06 Therapeutic Multivitamins/Minerals Tab (*Bkc) PO 1 tablet DAILY SANA Administration Ondansetron HCl 4 mg 02/24/25 21:49 02/24/25 22:23 Ondansetron Inj 4 Mg/2 Ml Vial IV PUSH 4 mg Q6H PRN Administration Nausea And Vomiting Pantoprazole Sodium 40 mg 02/25/25 09:00 03/02/25 08:06 Pantoprazole Sodium Iv 40 Mg Vial IV PUSH 40 mg Q12HR SANA Administration Phenytoin Sodium 100 mg 03/02/25 14:00 03/02/25 13:02 Phenytoin Sodium Inj 100 Mg/2 Ml Vial (*Bkc) IV PUSH 100 mg Q8HR SANA Administration Polyethylene Glycol 17 gm 02/28/25 09:00 03/02/25 08:05 Polyethylene Glycol 3350 17 Gm Powd.Pack PO 17 gm QAM SANA Administration Senna/Docusate Sodium 1 tab 03/01/25 21:00 03/01/25 20:09 Senna/Docusate Sodium Tablet PO 1 tab HS SANA Administration Sodium Chloride 10 ml 02/26/25 22:00 03/02/25 12:59 Central Line Flush IV PUSH 10 ml Q8HR SANA Administration Sodium Chloride 20 ml 02/26/25 16:48 Central Line Flush IV PUSH PRN PRN after blood draws Thiamine HCl 100 mg 02/25/25 09:00 03/02/25 08:06 Thiamine Hcl 200 Mg/2 Ml Vial IV PUSH 100 mg QAM SANA Administration Radiology Results: ITS Impressions Head CT 02/28/25 14:57 IMPRESSION: 1. Persistent small left frontal scalp hematoma. No fracture or acute intracranial process. Chest X-Ray 03/02/25 06:54 IMPRESSION: Small right-sided pleural effusion, nonvisualization of the left costophrenic sulcus. Mild pulmonary vascular congestion without focal infiltrate. Supportive lines and tubes in good position. Labs Labs: Laboratory Results - last 24 hr 03/01/25 03/01/25 03/02/25 17:52 23:55 04:51 WBC RBC Hgb Hct MCV MCH MCHC RDW Plt Count MPV Immature Gran % (Auto) Neut % (Auto) Lymph % (Auto) [place] % (Auto) Eos % (Auto) Baso % (Auto) Lymph # (Auto) [place] # (Auto) Eos # (Auto) Baso # (Auto) Abs Immat Gran (auto) Absolute Neuts (auto) Absolute Nucleated RBC Nucleated RBC % Puncture Site Right radial ABG pH 7.455 H ABG pCO2 38.7 ABG pO2 82.8 ABG PO2/FiO2 Ratio 3.45 ABG HCO3 26.6 H ABG O2 Saturation 96.6 ABG O2 Content 13.5 L ABG Base Excess 2.6 A-a Gradient 42.3 Oxyhemoglobin 94.6 Carboxyhemoglobin 0.6 Methemoglobin 0.3 Reduced Hemoglobin 4.5 Total Hemoglobin 10.1 L O2 Delivery Device Nasal cannula O2 Liters/Min 1.0 FiO2 24 Sodium Potassium Chloride Carbon Dioxide Anion Gap BUN Creatinine Estim Creat Clear Calc Estimated GFR Glucose POC Capillary Glucose 115 H 112 H Calcium Phosphorus Magnesium Total Bilirubin AST ALT Alkaline Phosphatase Total Protein Albumin Triglycerides 03/02/25 03/02/25 04:56 11:51 WBC 5.0 RBC 3.39 L Hgb 9.0 L Hct 28.6 L MCV 84.4 MCH 26.5 MCHC 31.5 L RDW 18.3 H Plt Count 208 MPV 9.9 Immature Gran % (Auto) 0.6 H Neut % (Auto) 66.7 Lymph % (Auto) 19.1 [place] % (Auto) 11.8 H Eos % (Auto) 1.4 Baso % (Auto) 0.4 Lymph # (Auto) 0.96 [place] # (Auto) 0.6 Eos # (Auto) 0.1 Baso # (Auto) 0.0 Abs Immat Gran (auto) 0.03 Absolute Neuts (auto) 3.4 Absolute Nucleated RBC 0.000 Nucleated RBC % 0.0 Puncture Site ABG pH ABG pCO2 ABG pO2 ABG PO2/FiO2 Ratio ABG HCO3 ABG O2 Saturation ABG O2 Content ABG Base Excess A-a Gradient Oxyhemoglobin Carboxyhemoglobin Methemoglobin Reduced Hemoglobin Total Hemoglobin O2 Delivery Device O2 Liters/Min FiO2 Sodium 138 Potassium 3.8 Chloride 107 Carbon Dioxide 23 Anion Gap 8 BUN 7 Creatinine 0.48 L Estim Creat Clear Calc 201 Estimated GFR > 60 Glucose 82 POC Capillary Glucose 91 Calcium 8.6 Phosphorus 4.5 Magnesium 2.0 Total Bilirubin 0.2 AST 23 ALT 11 Alkaline Phosphatase 80 Total Protein 6.1 L Albumin 3.3 L Triglycerides 140
[2025-03-02] MEDS: cefTRIAXone 1 GM in SODIUM CHLORIDE 0.9% IV 50 ML 100 ML IVPB (20:33)
[2025-03-02] MEDS: SENNA/DOCUSATE SODIUM TABLET 1 TAB PO (20:33)
[2025-03-02] MEDS: PROPOFOL IV EMULSION 100 ML 37.21 MG IV CONT ×2 (20:59→23:31)
[2025-03-03] VITALS (40 sets, daily range): BP systolic 118–154; BP diastolic 62–86; PULSE 59–94; RESP 15–22; TEMP 36.9–37.7; O2SAT 66–98
[2025-03-03] MEDS: VALPROATE SODIUM INJ 1,000 MG in DEXTROSE 5% IN WATER 50 ML 57.5 MG IVPB ×4 (02:11→18:43)
[2025-03-03] MEDS: PROPOFOL IV EMULSION 100 ML 33.07 MG IV CONT ×2 (02:16→05:23)
[2025-03-03 05:04] LABS: Hematocrit 31.0 % (37.0-47.0); Hemoglobin 9.4 g/dL (12.0-15.0); Immature Granulocyte Percent A 0.6 % (0-0.5); Lymphocytes Absolute Auto 0.76 K/mm3 (0.9-3.2); Mean Corpuscular HGB Conc 30.3 g/dl (32-36); Mean Corpuscular Hemoglobin 25.8 pg (26-34); Mean Corpuscular Volume 84.9 fl (80-100); Nucleated Red Blood Cells Absolute Auto 0.000 K/mm3 (0.0-0.012); Nucleated Red Blood Cells Perc 0.0 % (0.0-0.2); Platelet Count Result 226 k/mm3 (150-375); Red Blood Count 3.65 M/mm3 (4.2-5.4); White Blood Count 5.1 K/mm3 (4.5-10.0)
[2025-03-03 05:09] LABS: Alveolar/Arterial O2 Gradient 83.1 mmHg; Carboxyhemoglobin 0.5 % THb (0-2.0); Fractional Inspired Oxygen 30 %; HCO3 ABG 25.5 mEq/l (22.0-26.0); Methemoglobin ABG 0.3 %THb (0-1.5); Oxygen Content ABG 14.6 %vol (16.0-22.0); Oxygen Saturation ABG 96.7 % (95.0-100.0); PCO2 ABG 39.0 mmHg (35.0-45.0); PO2 ABG 85.0 mmHg (80.0-100.0); PO2 FiO2 Ratio Arterial Blood 2.83 %; Reduced Hemoglobin 3.9 %THb (0-5.0)
[2025-03-03 05:11] LABS: Modified Allen's Test Pass; Site Drawn RIGHT RADIAL
[2025-03-03 05:12] LABS: Arterial Blood Gas Tidal Volume 400 ml; Arterial Blood Gas Ventilator rate 14 /MIN
[2025-03-03] MEDS: PHENYTOIN SODIUM INJ 100 MG/2 ML VIAL (*BKC) IV PUSH (05:15)
[2025-03-03] MEDS: levETIRAcetam 1000MG/NACL100ML 1,000 MG/100 ML BAG 400 MG IVPB ×3 (05:15→18:42)
[2025-03-03] MEDS: CENTRAL LINE FLUSH 10 ML IV PUSH ×3 (05:16→21:09)
[2025-03-03 05:23] LABS: Alanine Aminotransferase 11 U/L (6-35); Albumin Level 3.4 g/dL (3.5-5.1); Alkaline Phosphatase 84 U/L (38-126); Anion Gap 6 mmol/L (4-12); Aspartate Amino Transferase 37 U/L (14-36); Bilirubin,Total 0.2 mg/dL (0.2-1.3); Blood Urea Nitrogen 9 mg/dL (7-17); Calcium 8.8 mg/dL (8.4-10.2); Carbon Dioxide 26 mmol/L (22-30); Chloride 105 mmol/L (98-107); Estimated CRCL calculation 184 ml/min; Estimated Glomerular Filt Rate > 60; Glucose 84 mg/dL (65-110); Magnesium 2.2 mg/dL (1.6-2.3); Potassium 4.2 mmol/L (3.4-5.0); Sodium 137 mmol/L (137-145); Total Protein 6.3 g/dL (6.3-8.2); Triglycerides 117 mg/dL (<150)
[2025-03-03] MEDS: PROPOFOL IV EMULSION 100 ML 20.67 MG IV CONT (09:24)
[2025-03-03] MEDS: dexmedeTOMIDine 400 MCG/100 ML 400 MCG/100 ML BAG 6.95 MCG IV CONT (09:25)
[2025-03-03] MEDS: FOLIC ACID 1 MG/0.2 ML INJ IV PUSH (09:26)
[2025-03-03] MEDS: APIXABAN 5 MG TABLET PO ×2 (09:26→21:08)
[2025-03-03] MEDS: MINERAL OIL/WHITE PETROLATUM OINTMENT 1 APPLIC EACH EYE ×2 (09:27→21:09)
[2025-03-03] MEDS: PANTOPRAZOLE SODIUM IV 40 MG VIAL IV PUSH ×2 (09:27→21:09)
[2025-03-03] MEDS: THERAPEUTIC MULTIVITAMINS/MINERALS TAB (*BKC) 1 TABLET PO (09:27)
[2025-03-03] MEDS: THIAMINE HCL 200 MG/2 ML VIAL 100 MG IV PUSH (09:27)
--- NOTE | 2025-03-03 09:45 | P.PNINT_ITS ---
Progress Note: A&P Assessment and Plan (1) Seizure disorder: Code(s): G40.909 - Epilepsy, unspecified, not intractable, without status epilepticus Status: Chronic Assessment and Plan: 02/24: Patient was found by police having seizures in her car, upon EMS arrival patient received Versed IV, she also received multiple doses of Ativan in the ER. Patient presented with multiple seizure activity. Was admitted to IMU a she had seizure activity for approximately 24 minute, patient was intubated as she was given multiple doses of IV Versed, IV Ativan,, diazepam propofol. -valproic level is on admission was significantly low, -lamotrigine and levetiracetam levels pending -discussed with Neurology, increased Keppra to 1000mg q.6 hours and valproic acid to 1000 mg Q 8 hours -patient was also given 1 dose of phenobarbital 260 mg IV x1, if the seizures are associated with alcohol withdrawal, given long half life of phenobarbital -appreciate Neurology evaluation and recommendations 03/02: Early hours patient had seizures x2 lasting 12 minutes and 20 minutes, patient self extubated and was reintubated for airway protection. Received Dilantin 1000 mg IV x1 loading dose and Dilantin 100 mg IV q.8 hours. Neurology is aware 03/03: Discussed extensively with Neurology, will obtain EEG stat, also obtain valproic acid and Dilantin levels, if they are subtherapeutic , neurology may increase the dose and get the levels therapeutic before adding any other anti epileptic. -02/26: EEG: this is a normal EEG obtained during awake and Drowsy states (2) Acute hypoxic respiratory failure: Code(s): J96.01 - Acute respiratory failure with hypoxia Status: Acute Assessment and Plan: Patient was intubated for airway protection secondary to prolonged seizure activity -currently on CMV mode of ventilation, peep of 5, 30% FiO2 -chest x-ray and ABGs reviewed, ventilator adjusted, will wean FiO2 to maintain O2 sats > 92 per -patient was on Precedex confusion without any seizure activity on 03/01. -03/02 early hours patient had 2 seizures is mentioned above, self extubated after the 1st seizure, pre intubated for airway protection. Now back on propofol infusion (3) Nausea vomiting and diarrhea: Code(s): R11.2 - Nausea with vomiting, unspecified; R19.7 - Diarrhea, unspecified Status: Acute Assessment and Plan: Patient presented with nausea and vomiting also -continue Zofran PRN (4) Alcoholism: Code(s): F10.20 - Alcohol dependence, uncomplicated Status: Acute Assessment and Plan: Patient drinks 750 mL of hard liquor every day -will have to watch for alcohol withdrawal/DTs -continue folic acid and thiamine (5) Pulmonary embolism: Onset Date: 2023 Code(s): I26.99 - Other pulmonary embolism without acute cor pulmonale Status: Acute Assessment and Plan: Patient has a history of pulmonary embolism in 2023 -on Eliquis at home, will continue (6) Anxiety: Code(s): F41.9 - Anxiety disorder, unspecified Status: Chronic Assessment and Plan: Currently intubated and sedated (7) Depression: Qualifiers: Depression Type: unspecified Qualified Code(s): F32.9 - Major depressive disorder, single episode, unspecified Code(s): F32.9 - Major depressive disorder, single episode, unspecified Status: Chronic Assessment and Plan: Currently intubated and sedated (8) Illicit drug use: Code(s): F19.90 - Other psychoactive substance use, unspecified, uncomplicated Status: Acute Assessment and Plan: Patient takes synthetic heroin, opiates, cannabinoids -will watch for withdrawal Plan DVT prophylaxis: Eliquis Stress ulcer prophylaxis: Protonix Nutrition: Tolerating tube feeds Code Status: Full code Critical Care Time Spent: 33 minutes Due to a high probability of clinically significant, life threatening deterioration, the patient required my highest level of preparedness to intervene emergently and I personally spent this critical care time directly and personally managing the patient. This critical care time included obtaining a history; examining the patient; pulse oximetry; ordering and review of studies; arranging urgent treatment with development of a management plan; evaluation of patient's response to treatment; frequent reassessment; and discussions with other providers. It was exclusive of separately billable procedures and treating other patients and teaching time. Please see Assessment and Plan section and the rest of the note for further information on patient assessment and treatment This dictation may have been done utilizing a voice recognition system. Attempts have been made to correct errors. However, there may be uncorrected grammatical, spelling, and recognitions errors present. Subjective Date/time seen: 03/03/25 09:45 Interval history: Reason for consult: Seizures, intubated for airway protection 03/03/2025: Patient seen and examined the ICU, remains intubated on CMV mode of ventilation, peep of 5, 30% FiO2. Sedated with propofol infusion. Patient does open her eyes, follows simple commands in upper extremities but not lower extremities. Adequate urine output, afebrile No seizure activities overnight Review of Systems Review of Systems: ROS unobtainable: Yes unobtainable due to endotracheal tube and unobtainable due to medical condition Exam Narrative: General: Intubated and sedated in no acute distress HEENT:? Pupils equal and reactive, sclera is clear, ETT in place Neck:? Supple Respiratory:? Clear to auscultation bilaterally, no wheezing, adequate air entry Cardiac:? S1-S2 is normal, reviewed return room Abdomen:? Soft, nontender, nondistended, hypoactive bowel sounds, obese Extremities:? Trace edema bilaterally, palpable pedal pulses Neuro:? Intubated, sedated, opens her eyes and follows simple commands with upper extremity Skin:? No lesions noted Psych:? Unable to assess at this time Objective Data Vital Signs Vital Signs: Vital Signs - 24 hr 03/02/25 10:00 03/02/25 10:00 03/02/25 10:00 Temperature 98 F Pulse Rate 84 83 84 Respiratory Rate 16 16 Blood Pressure 117/80 Pulse Oximetry 100 Oxygen Delivery Fraction of Inspired Oxygen 03/02/25 11:01 03/02/25 12:00 03/02/25 12:00 Temperature Pulse Rate 81 Respiratory Rate Blood Pressure Pulse Oximetry 100 100 Oxygen Delivery Mechanical Ventilation Mechanical Ventilation Fraction of Inspired Oxygen 30 30 30 03/02/25 12:00 03/02/25 12:00 03/02/25 12:00 Temperature 98.1 F Pulse Rate 81 80 78 Respiratory Rate 16 16 Blood Pressure 115/73 Pulse Oximetry 100 Oxygen Delivery Fraction of Inspired Oxygen 03/02/25 12:56 03/02/25 12:56 03/02/25 14:00 Temperature Pulse Rate 83 83 82 Respiratory Rate 15 15 Blood Pressure Pulse Oximetry Oxygen Delivery Fraction of Inspired Oxygen 03/02/25 14:00 03/02/25 14:00 03/02/25 14:02 Temperature 98.2 F Pulse Rate 83 83 81 Respiratory Rate 15 15 Blood Pressure 111/65 Pulse Oximetry 99 100 Oxygen Delivery Mechanical Ventilation Fraction of Inspired Oxygen 30 03/02/25 15:58 03/02/25 15:58 03/02/25 16:00 Temperature 98.3 F Pulse Rate 84 84 87 Respiratory Rate 16 16 16 Blood Pressure 114/67 Pulse Oximetry 99 Oxygen Delivery Fraction of Inspired Oxygen 03/02/25 16:00 03/02/25 16:00 03/02/25 16:00 Temperature Pulse Rate 85 Respiratory Rate Blood Pressure Pulse Oximetry 99 Oxygen Delivery Mechanical Ventilation Fraction of Inspired Oxygen 30 30 03/02/25 17:05 03/02/25 17:40 03/02/25 18:00 Temperature Pulse Rate 87 86 91 Respiratory Rate 15 Blood Pressure Pulse Oximetry 100 Oxygen Delivery Mechanical Ventilation Fraction of Inspired Oxygen 30 03/02/25 18:00 03/02/25 18:20 03/02/25 18:20 Temperature 98.6 F Pulse Rate 90 89 89 Respiratory Rate 16 16 16 Blood Pressure 133/76 Pulse Oximetry 100 Oxygen Delivery Fraction of Inspired Oxygen 03/02/25 20:00 03/02/25 20:00 03/02/25 20:00 Temperature Pulse Rate 88 88 Respiratory Rate 16 Blood Pressure Pulse Oximetry Oxygen Delivery Fraction of Inspired Oxygen 30 03/02/25 20:00 03/02/25 20:00 03/02/25 20:40 Temperature 98.2 F Pulse Rate 88 85 Respiratory Rate 16 16 Blood Pressure 131/80 Pulse Oximetry 100 100 Oxygen Delivery Mechanical Ventilation Fraction of Inspired Oxygen 30 03/02/25 20:59 03/02/25 20:59 03/02/25 21:10 Temperature Pulse Rate 91 91 87 Respiratory Rate 18 18 Blood Pressure Pulse Oximetry 98 Oxygen Delivery Mechanical Ventilation Fraction of Inspired Oxygen 30 03/02/25 22:00 03/02/25 22:00 03/02/25 22:00 Temperature 98.1 F Pulse Rate 88 88 88 Respiratory Rate 15 15 Blood Pressure 123/67 Pulse Oximetry 99 Oxygen Delivery Fraction of Inspired Oxygen 03/02/25 23:31 03/02/25 23:31 03/02/25 23:57 Temperature Pulse Rate 86 86 Respiratory Rate 15 15 Blood Pressure Pulse Oximetry 100 Oxygen Delivery Mechanical Ventilation Fraction of Inspired Oxygen 30 03/03/25 00:00 03/03/25 00:00 03/03/25 00:00 Temperature 98.5 F Pulse Rate 86 86 Respiratory Rate 15 Blood Pressure 118/62 Pulse Oximetry 97 Oxygen Delivery Fraction of Inspired Oxygen 30 03/03/25 00:00 03/03/25 00:25 03/03/25 02:00 Temperature Pulse Rate 86 87 90 Respiratory Rate 15 Blood Pressure Pulse Oximetry 97 Oxygen Delivery Mechanical Ventilation Fraction of Inspired Oxygen 30 03/03/25 02:00 03/03/25 02:00 03/03/25 02:16 Temperature 98.9 F Pulse Rate 90 91 89 Respiratory Rate 15 15 19 Blood Pressure 127/68 Pulse Oximetry 97 Oxygen Delivery Fraction of Inspired Oxygen 03/03/25 02:16 03/03/25 02:22 03/03/25 04:00 Temperature 98.8 F Pulse Rate 89 89 90 Respiratory Rate 19 17 Blood Pressure 127/69 Pulse Oximetry 98 96 Oxygen Delivery Mechanical Ventilation Fraction of Inspired Oxygen 30 03/03/25 04:00 03/03/25 04:00 03/03/25 04:00 Temperature Pulse Rate 90 90 Respiratory Rate 16 Blood Pressure Pulse Oximetry Oxygen Delivery Fraction of Inspired Oxygen 30 03/03/25 04:00 03/03/25 05:13 03/03/25 05:23 Temperature Pulse Rate 87 92 Respiratory Rate 15 Blood Pressure Pulse Oximetry 96 98 Oxygen Delivery Mechanical Ventilation Mechanical Ventilation Fraction of Inspired Oxygen 30 30 03/03/25 05:23 03/03/25 06:00 03/03/25 06:00 Temperature 98.9 F Pulse Rate 92 92 92 Respiratory Rate 15 16 Blood Pressure 128/63 Pulse Oximetry 97 Oxygen Delivery Fraction of Inspired Oxygen 03/03/25 06:30 03/03/25 06:55 03/03/25 08:00 Temperature 99.1 F Pulse Rate 87 87 89 Respiratory Rate 15 15 15 Blood Pressure 131/71 Pulse Oximetry 97 Oxygen Delivery Fraction of Inspired Oxygen 03/03/25 08:41 03/03/25 09:24 03/03/25 09:24 Temperature Pulse Rate 90 94 94 Respiratory Rate 16 16 Blood Pressure Pulse Oximetry 97 Oxygen Delivery Mechanical Ventilation Fraction of Inspired Oxygen 30 03/03/25 09:25 Temperature Pulse Rate 80 Respiratory Rate 16 Blood Pressure Pulse Oximetry Oxygen Delivery Fraction of Inspired Oxygen Intake/Output Intake/Output: Intake & Output 02/28/25 03/01/25 03/02/25 03/03/25 23:59 23:59 23:59 23:59 Intake Total 4648.5 3729.8 2037.0 963.9 Output Total 7967 4860 3050 2150 Balance 2573.5 -1020.2 -1013.0 -1186.1 Meds/Results Medications: Active Medications Generic Name Dose Route Start Last Admin Trade Name Freq PRN Reason Stop Dose Admin Alteplase, Recombinant 2 mg 03/01/25 18:41 03/01/25 19:01 Alteplase 2 Mg Vial (Cathflo) IV PUSH 2 mg ONCE PRN Administration Line Occlusion Apixaban 5 mg 02/25/25 10:25 03/03/25 09:26 Apixaban 5 Mg Tablet PO 5 mg Q12HR SANA Administration Folic Acid 1 mg 02/25/25 09:00 03/03/25 09:26 Folic Acid 1 Mg/0.2 Ml Inj IV PUSH 1 mg QAM SANA Administration Ceftriaxone Sodium 1 gm/ 50 mls @ 100 mls/hr 02/25/25 21:00 03/02/25 21:03 Sodium Chloride IVPB 03/03/25 21:29 Infused Q24H SANA Infusion Levetiracetam 1,000 mg in 100 mls @ 400 mls/hr 02/27/25 12:00 03/03/25 05:30 Keppra Iv IVPB Infused Q6H SANA Infusion Propofol 100 mls @ 20.67 mls/hr 03/02/25 05:25 03/03/25 09:24 Diprivan IV CONT 25 mcg/kg/min .Q4H51M SANA 20.67 mls/hr Administration Protocol 25 MCG/KG/MIN Dexmedetomidine HCl 400 mcg in 100 mls @ 6.95 mls/hr 03/03/25 08:00 03/03/25 09:25 Precedex 400 Mcg/100 Ml IV CONT 0.2 mcg/kg/hr .H73Z13H SANA 6.95 mls/hr Administration Protocol 0.2 MCG/KG/HR Valproate Sodium 1,000 mg/ 60 mls @ 57.5 mls/hr 03/03/25 12:00 Dextrose IVPB Q6H SANA Lorazepam 1 mg 02/24/25 21:49 02/24/25 22:23 Lorazepam Inj (*Crx) 2 Mg/Ml Vial IV PUSH 1 mg Q2H PRN Administration CIWA>8, HR>100, or DBP>100 Lorazepam 2 mg 02/26/25 12:32 03/02/25 05:07 Lorazepam Inj (*Crx) 2 Mg/Ml Vial IV PUSH 2 mg Q2H PRN Administration seizures Multi-Ingred Cream/Lotion/Oil/Oint 1 applic 02/25/25 09:00 03/03/25 09:27 Mineral Oil/White Petrolatum Ointment EACH EYE 1 applic Q12HR SANA Administration Multivitamins/Calcium 1 tablet 02/25/25 09:00 03/03/25 09:27 Therapeutic Multivitamins/Minerals Tab (*Bkc) PO 1 tablet DAILY SANA Administration Ondansetron HCl 4 mg 02/24/25 21:49 02/24/25 22:23 Ondansetron Inj 4 Mg/2 Ml Vial IV PUSH 4 mg Q6H PRN Administration Nausea And Vomiting Pantoprazole Sodium 40 mg 02/25/25 09:00 03/03/25 09:27 Pantoprazole Sodium Iv 40 Mg Vial IV PUSH 40 mg Q12HR SANA Administration Phenytoin Sodium 100 mg 03/02/25 14:00 03/03/25 05:15 Phenytoin Sodium Inj 100 Mg/2 Ml Vial (*Bkc) IV PUSH 100 mg Q8HR SANA Administration Polyethylene Glycol 17 gm 02/28/25 09:00 03/03/25 09:27 Polyethylene Glycol 3350 17 Gm Powd.Pack PO 17 gm QAM SANA Administration Senna/Docusate Sodium 1 tab 03/01/25 21:00 03/02/25 20:33 Senna/Docusate Sodium Tablet PO 1 tab HS SANA Administration Sodium Chloride 10 ml 02/26/25 22:00 03/03/25 05:16 Central Line Flush IV PUSH 10 ml Q8HR SANA Administration Sodium Chloride 20 ml 02/26/25 16:48 Central Line Flush IV PUSH PRN PRN after blood draws Thiamine HCl 100 mg 02/25/25 09:00 03/03/25 09:27 Thiamine Hcl 200 Mg/2 Ml Vial IV PUSH 100 mg QAM SANA Administration Radiology Results: ITS Impressions Head CT 02/28/25 14:57 IMPRESSION: 1. Persistent small left frontal scalp hematoma. No fracture or acute intracranial process. Chest X-Ray 03/03/25 07:15 Impression: 1: Interval progression of pulmonary edema. Labs Labs: Laboratory Results - last 24 hr 03/02/25 03/02/25 03/02/25 11:51 17:12 23:44 WBC RBC Hgb Hct MCV MCH MCHC RDW Plt Count MPV Immature Gran % (Auto) Neut % (Auto) Lymph % (Auto) [place] % (Auto) Eos % (Auto) Baso % (Auto) Lymph # (Auto) [place] # (Auto) Eos # (Auto) Baso # (Auto) Abs Immat Gran (auto) Absolute Neuts (auto) Absolute Nucleated RBC Nucleated RBC % Puncture Site ABG pH ABG pCO2 ABG pO2 ABG PO2/FiO2 Ratio ABG HCO3 ABG O2 Saturation ABG O2 Content ABG Base Excess A-a Gradient Oxyhemoglobin Carboxyhemoglobin Methemoglobin Reduced Hemoglobin Total Hemoglobin O2 Delivery Device O2 Liters/Min Minute Volume FiO2 Peak Inspir Pressure Pressure Support Sodium Potassium Chloride Carbon Dioxide Anion Gap BUN Creatinine Estim Creat Clear Calc Estimated GFR Glucose POC Capillary Glucose 91 87 87 Calcium Phosphorus Magnesium Total Bilirubin AST ALT Alkaline Phosphatase Total Protein Albumin Triglycerides 03/03/25 03/03/25 04:49 04:53 WBC 5.1 RBC 3.65 L Hgb 9.4 L Hct 31.0 L MCV 84.9 MCH 25.8 L MCHC 30.3 L RDW 18.3 H Plt Count 226 MPV 9.6 Immature Gran % (Auto) 0.6 H Neut % (Auto) 71.3 Lymph % (Auto) 14.9 L [place] % (Auto) 10.6 H Eos % (Auto) 2.0 Baso % (Auto) 0.6 Lymph # (Auto) 0.76 L [place] # (Auto) 0.5 Eos # (Auto) 0.1 Baso # (Auto) 0.0 Abs Immat Gran (auto) 0.03 Absolute Neuts (auto) 3.7 Absolute Nucleated RBC 0.000 Nucleated RBC % 0.0 Puncture Site Right radial ABG pH 7.434 ABG pCO2 39.0 ABG pO2 85.0 ABG PO2/FiO2 Ratio 2.83 ABG HCO3 25.5 ABG O2 Saturation 96.7 ABG O2 Content 14.6 L ABG Base Excess 1.3 A-a Gradient 83.1 Oxyhemoglobin 95.3 Carboxyhemoglobin 0.5 Methemoglobin 0.3 Reduced Hemoglobin 3.9 Total Hemoglobin 10.8 L O2 Delivery Device Ventilator O2 Liters/Min Not Reportable Minute Volume Not Reportable FiO2 30 Peak Inspir Pressure Not Reportable Pressure Support Not Reportable Sodium 137 Potassium 4.2 Chloride 105 Carbon Dioxide 26 Anion Gap 6 BUN 9 Creatinine 0.53 L Estim Creat Clear Calc 184 Estimated GFR > 60 Glucose 84 POC Capillary Glucose Calcium 8.8 Phosphorus 4.2 Magnesium 2.2 Total Bilirubin 0.2 AST 37 H ALT 11 Alkaline Phosphatase 84 Total Protein 6.3 Albumin 3.4 L Triglycerides 117 Quality VTE Prophylaxis VTE prophylaxis: pharmacologic ordered
--- NOTE | 2025-03-03 11:06 | PCFNICU ---
ICU Rounding Note: Pt current nutrition is Vital HP @ 30 ml/h with flushes 30 ml q 4 h. Nutrition recommendation: Advance Vital HP to 40 ml/h to better meet nutrition needs, as propofol is titrated down. Last recorded weight is 139 kg. Bowel Motility: No Bms. Miralax is given Labs Reviewed: Hgb 9.4, Hct 31, Alb 3.4, Cre 0.53 Meds Noted: Propofol @ 20.67 ml/h= 545 kcal. Precedex, thiamine, folic acid, Keppra Skin: No skin issues Additional Notes: Intubated for seizures. Propofol is titrated down so can titrate up Vital HP to 40 ml/h. Provides 880 kcal, 77 g protein, 736 ml free water. Can continue to titrate up with propofol going down. Following daily in ICU rounds. Will monitor weight, labs, skin, diet orders, meds every Monday and Monday..
--- NOTE | 2025-03-03 11:11 | WPDNEUROPN ---
Progress Note: A&P Assessment and Plan (1) Seizure disorder: Code(s): G40.909 - Epilepsy, unspecified, not intractable, without status epilepticus Status: Chronic (2) Alcoholism: Code(s): F10.20 - Alcohol dependence, uncomplicated Status: Acute (3) Illicit drug use: Code(s): F19.90 - Other psychoactive substance use, unspecified, uncomplicated Status: Acute (4) Obesity (BMI 30.0-34.9): Code(s): E66.9 - Obesity, unspecified Status: Acute Plan The patient may have nonepileptic as well as epileptic event. I have suggested another EEG today. We can optimize the dose of Dilantin further. Her level this morning was 4 and hence we can give her an additional dose of 600 mg IV once and thereafter 150 mg 3 times a day and repeat a blood level tomorrow. In the meanwhile the dose of Depakote IV has been corrected to 1 g Q 6 hourly and she is already on Keppra 1000 mg q.6 hourly. Subjective Date/time seen: 03/03/25 11:11 Interval history: The patient is still on ventilatory support and has not had any seizures but she is on propofol at this time. The EEG staff pointed out to me that to while the last EEG was done she did have a spell for about 2 minutes which was supposed to have any seizure-like activity. I have reviewed the EEG that did not show any electrographic abnormality other than some muscle artifacts. 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 She is currently on Depakote Dilantin and Keppra. Review of Systems Review of Systems: ROS unobtainable: Yes unobtainable due to medical condition Exam Narrative: Patient is on propofol and intubated. She is unable to cooperate for a formal neurologic examination. Objective Data Vital Signs Vital Signs: Vital Signs - 24 hr 03/02/25 12:00 03/02/25 12:03/02/25 12:00 Temperature 98.1 F Pulse Rate 81 Respiratory Rate 16 Blood Pressure 115/73 Pulse Oximetry 100 100 Oxygen Delivery Mechanical Ventilation Fraction of Inspired Oxygen 30 30 03/02/25 12:00 03/02/25 12:00 03/02/25 12:56 Temperature Pulse Rate 80 78 83 Respiratory Rate 16 15 Blood Pressure Pulse Oximetry Oxygen Delivery Fraction of Inspired Oxygen 03/02/25 12:56 03/02/25 14:00 03/02/25 14:00 Temperature 98.2 F Pulse Rate 83 82 83 Respiratory Rate 15 15 Blood Pressure 111/65 Pulse Oximetry 99 Oxygen Delivery Fraction of Inspired Oxygen 03/02/25 14:00 03/02/25 14:02 03/02/25 15:58 Temperature Pulse Rate 83 81 84 Respiratory Rate 15 16 Blood Pressure Pulse Oximetry 100 Oxygen Delivery Mechanical Ventilation Fraction of Inspired Oxygen 30 03/02/25 15:58 03/02/25 16:00 03/02/25 16:00 Temperature 98.3 F Pulse Rate 84 87 Respiratory Rate 16 16 Blood Pressure 114/67 Pulse Oximetry 99 Oxygen Delivery Fraction of Inspired Oxygen 30 03/02/25 16:00 03/02/25 16:00 03/02/25 17:05 Temperature Pulse Rate 85 87 Respiratory Rate Blood Pressure Pulse Oximetry 99 100 Oxygen Delivery Mechanical Ventilation Mechanical Ventilation Fraction of Inspired Oxygen 30 30 03/02/25 17:40 03/02/25 18:00 03/02/25 18:00 Temperature 98.6 F Pulse Rate 86 91 90 Respiratory Rate 15 16 Blood Pressure 133/76 Pulse Oximetry 100 Oxygen Delivery Fraction of Inspired Oxygen 03/02/25 18:20 03/02/25 18:20 03/02/25 20:00 Temperature Pulse Rate 89 89 88 Respiratory Rate 16 16 Blood Pressure Pulse Oximetry Oxygen Delivery Fraction of Inspired Oxygen 03/02/25 20:00 03/02/25 20:00 03/02/25 20:00 Temperature 98.2 F Pulse Rate 88 88 Respiratory Rate 16 16 Blood Pressure 131/80 Pulse Oximetry 100 Oxygen Delivery Fraction of Inspired Oxygen 30 03/02/25 20:00 03/02/25 20:40 03/02/25 20:59 Temperature Pulse Rate 85 91 Respiratory Rate 16 18 Blood Pressure Pulse Oximetry 100 Oxygen Delivery Mechanical Ventilation Fraction of Inspired Oxygen 30 03/02/25 20:59 03/02/25 21:10 03/02/25 22:00 Temperature Pulse Rate 91 87 88 Respiratory Rate 18 Blood Pressure Pulse Oximetry 98 Oxygen Delivery Mechanical Ventilation Fraction of Inspired Oxygen 30 03/02/25 22:00 03/02/25 22:00 03/02/25 23:31 Temperature 98.1 F Pulse Rate 88 88 86 Respiratory Rate 15 15 15 Blood Pressure 123/67 Pulse Oximetry 99 Oxygen Delivery Fraction of Inspired Oxygen 03/02/25 23:31 03/02/25 23:57 03/03/25 00:00 Temperature Pulse Rate 86 Respiratory Rate 15 Blood Pressure Pulse Oximetry 100 Oxygen Delivery Mechanical Ventilation Fraction of Inspired Oxygen 30 30 03/03/25 00:00 03/03/25 00:00 03/03/25 00:00 Temperature 98.5 F Pulse Rate 86 86 86 Respiratory Rate 15 15 Blood Pressure 118/62 Pulse Oximetry 97 Oxygen Delivery Fraction of Inspired Oxygen 03/03/25 00:25 03/03/25 02:00 03/03/25 02:00 Temperature 98.9 F Pulse Rate 87 90 90 Respiratory Rate 15 Blood Pressure 127/68 Pulse Oximetry 97 97 Oxygen Delivery Mechanical Ventilation Fraction of Inspired Oxygen 30 03/03/25 02:00 03/03/25 02:16 03/03/25 02:16 Temperature Pulse Rate 91 89 89 Respiratory Rate 15 19 19 Blood Pressure Pulse Oximetry Oxygen Delivery Fraction of Inspired Oxygen 03/03/25 02:22 03/03/25 04:00 03/03/25 04:00 Temperature 98.8 F Pulse Rate 89 90 90 Respiratory Rate 17 Blood Pressure 127/69 Pulse Oximetry 98 96 Oxygen Delivery Mechanical Ventilation Fraction of Inspired Oxygen 30 03/03/25 04:00 03/03/25 04:00 03/03/25 04:00 Temperature Pulse Rate 90 Respiratory Rate 16 Blood Pressure Pulse Oximetry 96 Oxygen Delivery Mechanical Ventilation Fraction of Inspired Oxygen 30 30 03/03/25 05:13 03/03/25 05:23 03/03/25 05:23 Temperature Pulse Rate 87 92 92 Respiratory Rate 15 15 Blood Pressure Pulse Oximetry 98 Oxygen Delivery Mechanical Ventilation Fraction of Inspired Oxygen 30 03/03/25 06:00 03/03/25 06:00 03/03/25 06:30 Temperature 98.9 F Pulse Rate 92 92 87 Respiratory Rate 16 15 Blood Pressure 128/63 Pulse Oximetry 97 Oxygen Delivery Fraction of Inspired Oxygen 03/03/25 06:55 03/03/25 08:00 03/03/25 08:00 Temperature 99.1 F Pulse Rate 87 89 88 Respiratory Rate 15 15 Blood Pressure 131/71 Pulse Oximetry 97 Oxygen Delivery Fraction of Inspired Oxygen 03/03/25 08:00 03/03/25 08:00 03/03/25 08:41 Temperature Pulse Rate 88 90 Respiratory Rate 15 Blood Pressure Pulse Oximetry 97 97 Oxygen Delivery Mechanical Ventilation Mechanical Ventilation Fraction of Inspired Oxygen 30 30 30 03/03/25 09:24 03/03/25 09:24 03/03/25 09:25 Temperature Pulse Rate 94 94 80 Respiratory Rate 16 16 16 Blood Pressure Pulse Oximetry Oxygen Delivery Fraction of Inspired Oxygen 03/03/25 10:00 03/03/25 10:00 03/03/25 10:30 Temperature 99.1 F Pulse Rate 88 88 90 Respiratory Rate 15 17 Blood Pressure 131/71 Pulse Oximetry 97 Oxygen Delivery Fraction of Inspired Oxygen 03/03/25 10:44 03/03/25 10:59 03/03/25 11:01 Temperature Pulse Rate 80 76 76 Respiratory Rate 18 18 Blood Pressure Pulse Oximetry 97 Oxygen Delivery Mechanical Ventilation Fraction of Inspired Oxygen 30 Intake/Output Intake/Output: Intake & Output 02/28/25 03/01/25 03/02/25 03/03/25 23:59 23:59 23:59 23:59 Intake Total 4648.5 3729.8 2037.0 1011.5 Output Total 2075 4750 3050 2150 Balance 2573.5 -1020.2 -1013.0 -1138.5 Meds/Results Medications: Active Medications Generic Name Dose Route Start Last Admin Trade Name Freq PRN Reason Stop Dose Admin Alteplase, Recombinant 2 mg 03/01/25 18:41 03/01/25 19:01 Alteplase 2 Mg Vial (Cathflo) IV PUSH 2 mg ONCE PRN Administration Line Occlusion Apixaban 5 mg 02/25/25 10:25 03/03/25 09:26 Apixaban 5 Mg Tablet PO 5 mg Q12HR SANA Administration Folic Acid 1 mg 02/25/25 09:00 03/03/25 09:26 Folic Acid 1 Mg/0.2 Ml Inj IV PUSH 1 mg QAM SANA Administration Levetiracetam 1,000 mg in 100 mls @ 400 mls/hr 02/27/25 12:00 03/03/25 05:30 Keppra Iv IVPB Infused Q6H SANA Infusion Propofol 100 mls @ 16.536 mls/hr 03/02/25 05:25 03/03/25 11:01 Diprivan IV CONT 20 mcg/kg/min .Q6H3M SANA 16.54 mls/hr Titration Protocol 20 MCG/KG/MIN Dexmedetomidine HCl 400 mcg in 100 mls @ 20.85 mls/hr 03/03/25 08:00 03/03/25 10:59 Precedex 400 Mcg/100 Ml IV CONT 0.6 mcg/kg/hr .Q4H48M SANA 20.85 mls/hr Titration Protocol 0.6 MCG/KG/HR Valproate Sodium 1,000 mg/ 60 mls @ 57.5 mls/hr 03/03/25 12:00 Dextrose IVPB Q6H SANA Lorazepam 1 mg 02/24/25 21:49 02/24/25 22:23 Lorazepam Inj (*Crx) 2 Mg/Ml Vial IV PUSH 1 mg Q2H PRN Administration CIWA>8, HR>100, or DBP>100 Lorazepam 2 mg 02/26/25 12:32 03/02/25 05:07 Lorazepam Inj (*Crx) 2 Mg/Ml Vial IV PUSH 2 mg Q2H PRN Administration seizures Multi-Ingred Cream/Lotion/Oil/Oint 1 applic 02/25/25 09:00 03/03/25 09:27 Mineral Oil/White Petrolatum Ointment EACH EYE 1 applic Q12HR SANA Administration Multivitamins/Calcium 1 tablet 02/25/25 09:00 03/03/25 09:27 Therapeutic Multivitamins/Minerals Tab (*Bkc) PO 1 tablet DAILY SANA Administration Ondansetron HCl 4 mg 02/24/25 21:49 02/24/25 22:23 Ondansetron Inj 4 Mg/2 Ml Vial IV PUSH 4 mg Q6H PRN Administration Nausea And Vomiting Pantoprazole Sodium 40 mg 02/25/25 09:00 03/03/25 09:27 Pantoprazole Sodium Iv 40 Mg Vial IV PUSH 40 mg Q12HR SANA Administration Phenytoin Sodium 100 mg 03/02/25 14:00 03/03/25 05:15 Phenytoin Sodium Inj 100 Mg/2 Ml Vial (*Bkc) IV PUSH 100 mg Q8HR SANA Administration Polyethylene Glycol 17 gm 02/28/25 09:00 03/03/25 09:27 Polyethylene Glycol 3350 17 Gm Powd.Pack PO 17 gm QAM SANA Administration Senna/Docusate Sodium 1 tab 03/01/25 21:00 03/02/25 20:33 Senna/Docusate Sodium Tablet PO 1 tab HS SANA Administration Sodium Chloride 10 ml 02/26/25 22:00 03/03/25 05:16 Central Line Flush IV PUSH 10 ml Q8HR SANA Administration Sodium Chloride 20 ml 02/26/25 16:48 Central Line Flush IV PUSH PRN PRN after blood draws Thiamine HCl 100 mg 02/25/25 09:00 03/03/25 09:27 Thiamine Hcl 200 Mg/2 Ml Vial IV PUSH 100 mg QAM SANA Administration Radiology Results: ITS Impressions Head CT 02/28/25 14:57 IMPRESSION: 1. Persistent small left frontal scalp hematoma. No fracture or acute intracranial process. Chest X-Ray 03/03/25 07:15 Impression: 1: Interval progression of pulmonary edema. Labs Labs: Laboratory Results - last 24 hr 03/02/25 03/02/25 03/02/25 11:51 17:12 23:44 WBC RBC Hgb Hct MCV MCH MCHC RDW Plt Count MPV Immature Gran % (Auto) Neut % (Auto) Lymph % (Auto) [place] % (Auto) Eos % (Auto) Baso % (Auto) Lymph # (Auto) [place] # (Auto) Eos # (Auto) Baso # (Auto) Abs Immat Gran (auto) Absolute Neuts (auto) Absolute Nucleated RBC Nucleated RBC % Puncture Site ABG pH ABG pCO2 ABG pO2 ABG PO2/FiO2 Ratio ABG HCO3 ABG O2 Saturation ABG O2 Content ABG Base Excess A-a Gradient Oxyhemoglobin Carboxyhemoglobin Methemoglobin Reduced Hemoglobin Total Hemoglobin O2 Delivery Device O2 Liters/Min Minute Volume FiO2 Peak Inspir Pressure Pressure Support Sodium Potassium Chloride Carbon Dioxide Anion Gap BUN Creatinine Estim Creat Clear Calc Estimated GFR Glucose POC Capillary Glucose 91 87 87 Calcium Phosphorus Magnesium Total Bilirubin AST ALT Alkaline Phosphatase Total Protein Albumin Triglycerides Phenytoin 03/03/25 03/03/25 03/03/25 04:49 04:53 09:32 WBC 5.1 RBC 3.65 L Hgb 9.4 L Hct 31.0 L MCV 84.9 MCH 25.8 L MCHC 30.3 L RDW 18.3 H Plt Count 226 MPV 9.6 Immature Gran % (Auto) 0.6 H Neut % (Auto) 71.3 Lymph % (Auto) 14.9 L [place] % (Auto) 10.6 H Eos % (Auto) 2.0 Baso % (Auto) 0.6 Lymph # (Auto) 0.76 L [place] # (Auto) 0.5 Eos # (Auto) 0.1 Baso # (Auto) 0.0 Abs Immat Gran (auto) 0.03 Absolute Neuts (auto) 3.7 Absolute Nucleated RBC 0.000 Nucleated RBC % 0.0 Puncture Site Right radial ABG pH 7.434 ABG pCO2 39.0 ABG pO2 85.0 ABG PO2/FiO2 Ratio 2.83 ABG HCO3 25.5 ABG O2 Saturation 96.7 ABG O2 Content 14.6 L ABG Base Excess 1.3 A-a Gradient 83.1 Oxyhemoglobin 95.3 Carboxyhemoglobin 0.5 Methemoglobin 0.3 Reduced Hemoglobin 3.9 Total Hemoglobin 10.8 L O2 Delivery Device Ventilator O2 Liters/Min Not Reportable Minute Volume Not Reportable FiO2 30 Peak Inspir Pressure Not Reportable Pressure Support Not Reportable Sodium 137 Potassium 4.2 Chloride 105 Carbon Dioxide 26 Anion Gap 6 BUN 9 Creatinine 0.53 L Estim Creat Clear Calc 184 Estimated GFR > 60 Glucose 84 POC Capillary Glucose Calcium 8.8 Phosphorus 4.2 Magnesium 2.2 Total Bilirubin 0.2 AST 37 H ALT 11 Alkaline Phosphatase 84 Total Protein 6.3 Albumin 3.4 L Triglycerides 117 Phenytoin 4 L
[2025-03-03] MEDS: PHENYTOIN SODIUM IVPB (12:06)
[2025-03-03] MEDS: SODIUM CHLORIDE 0.9% IVPB (12:06)
[2025-03-03] MEDS: LACTULOSE 20 GM/30 ML UDC PO (12:07)
[2025-03-03] MEDS: dexmedeTOMIDine 400 MCG/100 ML 400 MCG/100 ML BAG 34.75 MCG IV CONT ×4 (13:34→21:16)
--- NOTE | 2025-03-03 15:05 | PCNEURO ---
Doctor is requesting a longer EEG to catch patient's reoccurring episodes. Awaiting time requested.
[2025-03-03] MEDS: PHENYTOIN SODIUM INJ 100 MG/2 ML VIAL (*BKC) 150 MG IV PUSH ×2 (15:36→21:09)
[2025-03-03] MEDS: PROPOFOL IV EMULSION 100 ML 8.27 MG IV CONT (16:08)
[2025-03-03] MEDS: SENNA/DOCUSATE SODIUM TABLET 1 TAB PO (21:08)
[2025-03-03] MEDS: PROPOFOL IV EMULSION 100 ML 16.54 MG IV CONT (21:17)
[2025-03-04] VITALS (30 sets, daily range): BP systolic 108–145; BP diastolic 67–81; PULSE 59–98; RESP 14–28; TEMP 37–37.6; O2SAT 93–100
[2025-03-04] MEDS: levETIRAcetam 1000MG/NACL100ML 1,000 MG/100 ML BAG 400 MG IVPB ×5 (00:16→23:25)
[2025-03-04] MEDS: dexmedeTOMIDine 400 MCG/100 ML 400 MCG/100 ML BAG 34.75 MCG IV CONT ×3 (00:23→06:00)
[2025-03-04] MEDS: VALPROATE SODIUM INJ 1,000 MG in DEXTROSE 5% IN WATER 50 ML 57.5 MG IVPB ×5 (00:24→23:25)
[2025-03-04] MEDS: PROPOFOL IV EMULSION 100 ML 12.4 MG IV CONT (03:09)
[2025-03-04 04:53] LABS: Hematocrit 31.8 % (37.0-47.0); Hemoglobin 9.8 g/dL (12.0-15.0); Immature Granulocyte Percent A 0.5 % (0-0.5); Lymphocytes Absolute Auto 1.17 K/mm3 (0.9-3.2); Mean Corpuscular HGB Conc 30.8 g/dl (32-36); Mean Corpuscular Hemoglobin 25.7 pg (26-34); Mean Corpuscular Volume 83.5 fl (80-100); Nucleated Red Blood Cells Absolute Auto 0.000 K/mm3 (0.0-0.012); Nucleated Red Blood Cells Perc 0.0 % (0.0-0.2); Platelet Count Result 228 k/mm3 (150-375); Red Blood Count 3.81 M/mm3 (4.2-5.4); White Blood Count 5.8 K/mm3 (4.5-10.0)
[2025-03-04 04:54] LABS: Alveolar/Arterial O2 Gradient 97.8 mmHg; Carboxyhemoglobin 0.4 % THb (0-2.0); Fractional Inspired Oxygen 30 %; HCO3 ABG 22.8 mEq/l (22.0-26.0); Methemoglobin ABG 0.1 %THb (0-1.5); Oxygen Content ABG 14.4 %vol (16.0-22.0); Oxygen Saturation ABG 95.4 % (95.0-100.0); PCO2 ABG 35.4 mmHg (35.0-45.0); PO2 ABG 74.5 mmHg (80.0-100.0); PO2 FiO2 Ratio Arterial Blood 2.48 %; Reduced Hemoglobin 5.8 %THb (0-5.0)
[2025-03-04 04:59] LABS: Modified Allen's Test Pass; Site Drawn RIGHT RADIAL
[2025-03-04 05:00] LABS: Arterial Blood Gas Ventilator rate 15 /MIN
[2025-03-04 05:01] LABS: Arterial Blood Gas Tidal Volume 400 ml
[2025-03-04] MEDS: PHENYTOIN SODIUM INJ 100 MG/2 ML VIAL (*BKC) 150 MG IV PUSH ×3 (05:18→20:56)
[2025-03-04] MEDS: CENTRAL LINE FLUSH 10 ML IV PUSH ×3 (05:18→20:15)
[2025-03-04 05:31] LABS: Alanine Aminotransferase 15 U/L (6-35); Albumin Level 3.6 g/dL (3.5-5.1); Alkaline Phosphatase 85 U/L (38-126); Anion Gap 6 mmol/L (4-12); Aspartate Amino Transferase 45 U/L (14-36); Bilirubin,Total 0.2 mg/dL (0.2-1.3); Blood Urea Nitrogen 8 mg/dL (7-17); Calcium 8.9 mg/dL (8.4-10.2); Carbon Dioxide 25 mmol/L (22-30); Chloride 104 mmol/L (98-107); Estimated CRCL calculation 181 ml/min; Estimated Glomerular Filt Rate > 60; Glucose 115 mg/dL (65-110); Magnesium 2.0 mg/dL (1.6-2.3); Potassium 3.7 mmol/L (3.4-5.0); Sodium 135 mmol/L (137-145); Total Protein 6.6 g/dL (6.3-8.2); Triglycerides 158 mg/dL (<150)
[2025-03-04] MEDS: FOLIC ACID 1 MG/0.2 ML INJ IV PUSH (08:26)
[2025-03-04] MEDS: POTASSIUM CHLORIDE 20 MEQ PACKET (FOR LIQUID) 40 MEQ FEED TUBE (08:26)
[2025-03-04] MEDS: THIAMINE HCL 200 MG/2 ML VIAL 100 MG IV PUSH (08:26)
[2025-03-04] MEDS: APIXABAN 5 MG TABLET PO ×2 (08:26→20:54)
[2025-03-04] MEDS: THERAPEUTIC MULTIVITAMINS/MINERALS TAB (*BKC) 1 TABLET PO (08:27)
[2025-03-04] MEDS: PANTOPRAZOLE SODIUM IV 40 MG VIAL IV PUSH ×2 (08:27→20:14)
[2025-03-04] MEDS: dexmedeTOMIDine 400 MCG/100 ML 400 MCG/100 ML BAG 24.33 MCG IV CONT (09:47)
--- NOTE | 2025-03-04 09:54 | WPDINTPN ---
Progress Note: A&P Assessment and Plan (1) Seizure disorder: Code(s): G40.909 - Epilepsy, unspecified, not intractable, without status epilepticus Status: Chronic Assessment and Plan: 02/24: Patient was found by police having seizures in her car, upon EMS arrival patient received Versed IV, she also received multiple doses of Ativan in the ER. Patient presented with multiple seizure activity. Was admitted to IMU a she had seizure activity for approximately 24 minute, patient was intubated as she was given multiple doses of IV Versed, IV Ativan,, diazepam propofol. -valproic level is on admission was significantly low, -lamotrigine and levetiracetam levels pending -discussed with Neurology, increased Keppra to 1000mg q.6 hours and valproic acid to 1000 mg Q 8 hours -patient was also given 1 dose of phenobarbital 260 mg IV x1, if the seizures are associated with alcohol withdrawal, given long half life of phenobarbital 03/02: Early hours patient had seizures x2 lasting 12 minutes and 20 minutes, patient self extubated and was reintubated for airway protection. Received Dilantin 1000 mg IV x1 loading dose and Dilantin 100 mg IV q.8 hours. Neurology is aware 03/03: Discussed extensively with Neurology, will obtain EEG stat, also obtain valproic acid and Dilantin levels, if they are subtherapeutic , neurology may increase the dose and get the levels therapeutic before adding any other anti epileptic. -02/26: EEG: this is a normal EEG obtained during awake and Drowsy states 03/04 Continue Keppra, phenytoin and valproic acid EEG scheduled for today (2) Acute hypoxic respiratory failure: Code(s): J96.01 - Acute respiratory failure with hypoxia Status: Acute Assessment and Plan: Patient was intubated for airway protection secondary to prolonged seizure activity -currently on CMV mode of ventilation, peep of 5, 30% FiO2 -chest x-ray and ABGs reviewed, ventilator settings reviewed -will plan for weaning trial after EEG today (3) Alcoholism: Code(s): F10.20 - Alcohol dependence, uncomplicated Status: Acute Assessment and Plan: Patient drinks 750 mL of hard liquor every day Currently on Precedex infusion -continue folic acid and thiamine (4) Pulmonary embolism: Onset Date: 2023 Code(s): I26.99 - Other pulmonary embolism without acute cor pulmonale Status: Acute Assessment and Plan: Patient has a history of pulmonary embolism in 2023 -on Eliquis at home, will continue (5) Anxiety: Code(s): F41.9 - Anxiety disorder, unspecified Status: Chronic Assessment and Plan: Currently intubated and sedated (6) Depression: Qualifiers: Depression Type: unspecified Qualified Code(s): F32.9 - Major depressive disorder, single episode, unspecified Code(s): F32.9 - Major depressive disorder, single episode, unspecified Status: Chronic Assessment and Plan: Currently intubated and sedated (7) Illicit drug use: Code(s): F19.90 - Other psychoactive substance use, unspecified, uncomplicated Status: Acute Assessment and Plan: Patient takes synthetic heroin, opiates, cannabinoids Monitor for any evidence of withdrawal. Currently on Precedex infusion (8) Urinary tract infection: Code(s): N39.0 - Urinary tract infection, site not specified Status: Acute Assessment and Plan: Patient UA was abnormal and suggestive UTI. Patient was started on Rocephin. Cultures came back with ESBL E coli which is sensitive only to carbapenems or aminoglycoside. Due to patient's difficult to control seizures carbapenems will not be ordered.. Will give 1 dose of gentamicin IV. Will also give IV fluids Plan DVT prophylaxis: Eliquis Stress ulcer prophylaxis: Protonix Nutrition: Tolerating tube feeds Code Status: Full code Critical Care Time Spent: 32 minutes Due to a high probability of clinically significant, life threatening deterioration, the patient required my highest level of preparedness to intervene emergently and I personally spent this critical care time directly and personally managing the patient. This critical care time included obtaining a history; examining the patient; pulse oximetry; ordering and review of studies; arranging urgent treatment with development of a management plan; evaluation of patient's response to treatment; frequent reassessment; and discussions with other providers. It was exclusive of separately billable procedures and treating other patients and teaching time. Please see Assessment and Plan section and the rest of the note for further information on patient assessment and treatment This dictation may have been done utilizing a voice recognition system. Attempts have been made to correct errors. However, there may be uncorrected grammatical, spelling, and recognitions errors present. Subjective Date/time seen: 03/04/25 Overnight events reviewed. Afebrile overnight Continues to be on mechanical ventilation 30% FiO2 No clinically obvious seizures overnight Continues to be sedated with Precedex Other Vitals acceptable Tolerating tube feed Interval history: Reason for consult: Seizures, intubated for airway protection Review of Systems Review of Systems: ROS unobtainable: Yes unobtainable due to endotracheal tube and unobtainable due to medical condition Exam Narrative: General: Intubated and sedated in no acute distress HEENT:? Pupils equal and reactive, sclera is clear, ETT in place Neck:? Supple Respiratory:? Clear to auscultation bilaterally, no wheezing, adequate air entry Cardiac:? S1-S2 is normal, reviewed return room Abdomen:? Soft, nontender, nondistended, hypoactive bowel sounds, obese Extremities:? Trace edema bilaterally, palpable pedal pulses Neuro:? Intubated, sedated, opens her eyes and follows simple commands with upper extremity Skin:? No lesions noted Psych:? Unable to assess at this time Objective Data Vital Signs Vital Signs: Vital Signs - 24 hr 03/03/25 10:00 03/03/25 10:00 03/03/25 10:00 Temperature 37.3 C Pulse Rate 88 88 86 Respiratory Rate 15 17 Blood Pressure 131/71 Pulse Oximetry 97 Oxygen Delivery Fraction of Inspired Oxygen 03/03/25 10:00 03/03/25 10:30 03/03/25 10:44 Temperature Pulse Rate 86 90 80 Respiratory Rate 19 17 Blood Pressure Pulse Oximetry 97 Oxygen Delivery Mechanical Ventilation Fraction of Inspired Oxygen 03/03/25 10:59 03/03/25 11:01 03/03/25 11:30 Temperature Pulse Rate 76 76 70 Respiratory Rate 18 18 17 Blood Pressure Pulse Oximetry Oxygen Delivery Fraction of Inspired Oxygen 03/03/25 11:46 03/03/25 12:00 03/03/25 12:00 Temperature Pulse Rate 70 67 Respiratory Rate 18 Blood Pressure Pulse Oximetry Oxygen Delivery Fraction of Inspired Oxygen 03/03/25 12:00 03/03/25 12:00 03/03/25 12:00 Temperature 37.4 C Pulse Rate 67 67 72 Respiratory Rate 16 16 19 Blood Pressure 149/86 H Pulse Oximetry 97 97 Oxygen Delivery Mechanical Ventilation Fraction of Inspired Oxygen 03/03/25 12:00 03/03/25 12:23 03/03/25 13:34 Temperature Pulse Rate 69 67 71 Respiratory Rate 18 16 16 Blood Pressure Pulse Oximetry Oxygen Delivery Fraction of Inspired Oxygen 03/03/25 13:34 03/03/25 14:00 03/03/25 14:00 Temperature Pulse Rate 71 72 59 L Respiratory Rate 16 18 Blood Pressure Pulse Oximetry 95 Oxygen Delivery Mechanical Ventilation Fraction of Inspired Oxygen 30 03/03/25 14:00 03/03/25 14:00 03/03/25 14:00 Temperature 37.7 C H Pulse Rate 73 69 69 Respiratory Rate 20 18 Blood Pressure 154/84 H Pulse Oximetry 94 Oxygen Delivery Fraction of Inspired Oxygen 03/03/25 16:00 03/03/25 16:00 03/03/25 16:00 Temperature 37.7 C H Pulse Rate 71 69 Respiratory Rate 18 Blood Pressure 132/80 Pulse Oximetry 94 Oxygen Delivery Fraction of Inspired Oxygen 30 03/03/25 16:00 03/03/25 16:08 03/03/25 16:08 Temperature Pulse Rate 68 70 70 Respiratory Rate 17 18 18 Blood Pressure Pulse Oximetry 93 Oxygen Delivery Mechanical Ventilation Fraction of Inspired Oxygen 30 03/03/25 16:09 03/03/25 16:09 03/03/25 17:14 Temperature Pulse Rate 71 71 65 Respiratory Rate 16 16 Blood Pressure Pulse Oximetry 96 Oxygen Delivery Mechanical Ventilation Fraction of Inspired Oxygen 30 03/03/25 17:30 03/03/25 17:35 03/03/25 18:00 Temperature 37.4 C Pulse Rate 83 73 66 Respiratory Rate 22 H 17 18 Blood Pressure 124/75 Pulse Oximetry 66 L Oxygen Delivery Fraction of Inspired Oxygen 03/03/25 18:00 03/03/25 18:00 03/03/25 18:42 Temperature Pulse Rate 66 66 66 Respiratory Rate 16 17 16 Blood Pressure Pulse Oximetry Oxygen Delivery Fraction of Inspired Oxygen 03/03/25 18:42 03/03/25 20:00 03/03/25 20:00 Temperature Pulse Rate 66 Respiratory Rate 16 Blood Pressure Pulse Oximetry Oxygen Delivery Mechanical Ventilation Fraction of Inspired Oxygen 30 30 03/03/25 20:00 03/03/25 20:00 03/03/25 20:00 Temperature 37.4 C Pulse Rate 67 67 67 Respiratory Rate 18 18 Blood Pressure 131/77 Pulse Oximetry 92 Oxygen Delivery Fraction of Inspired Oxygen 03/03/25 20:00 03/03/25 20:08 03/03/25 21:16 Temperature Pulse Rate 64 64 64 Respiratory Rate 18 17 Blood Pressure Pulse Oximetry 92 Oxygen Delivery Mechanical Ventilation Fraction of Inspired Oxygen 30 03/03/25 21:16 03/03/25 21:17 03/03/25 21:17 Temperature Pulse Rate 64 64 64 Respiratory Rate 17 16 16 Blood Pressure Pulse Oximetry Oxygen Delivery Fraction of Inspired Oxygen 03/03/25 22:00 03/03/25 22:00 03/03/25 22:00 Temperature 37.6 C Pulse Rate 67 67 67 Respiratory Rate 19 19 Blood Pressure 135/78 Pulse Oximetry 95 Oxygen Delivery Fraction of Inspired Oxygen 03/03/25 22:00 03/03/25 23:05 03/04/25 00:00 Temperature 37.5 C Pulse Rate 67 68 65 Respiratory Rate 19 20 Blood Pressure 129/75 Pulse Oximetry 94 93 Oxygen Delivery Mechanical Ventilation Fraction of Inspired Oxygen 30 03/04/25 00:00 03/04/25 00:00 03/04/25 00:00 Temperature Pulse Rate 65 65 Respiratory Rate 20 20 Blood Pressure Pulse Oximetry Oxygen Delivery Fraction of Inspired Oxygen 30 03/04/25 00:00 03/04/25 00:00 03/04/25 00:23 Temperature Pulse Rate 65 62 Respiratory Rate 21 H Blood Pressure Pulse Oximetry Oxygen Delivery Mechanical Ventilation Fraction of Inspired Oxygen 30 03/04/25 00:23 03/04/25 02:00 03/04/25 02:00 Temperature 37.6 C Pulse Rate 62 69 69 Respiratory Rate 21 H 18 Blood Pressure 132/81 Pulse Oximetry 96 Oxygen Delivery Fraction of Inspired Oxygen 03/04/25 02:00 03/04/25 02:00 03/04/25 02:49 Temperature Pulse Rate 69 69 65 Respiratory Rate 18 18 Blood Pressure Pulse Oximetry 95 Oxygen Delivery Mechanical Ventilation Fraction of Inspired Oxygen 30 03/04/25 03:05 03/04/25 03:05 03/04/25 03:09 Temperature Pulse Rate 62 62 61 Respiratory Rate 17 17 17 Blood Pressure Pulse Oximetry Oxygen Delivery Fraction of Inspired Oxygen 03/04/25 03:09 03/04/25 04:00 03/04/25 04:00 Temperature 37.0 C Pulse Rate 61 61 Respiratory Rate 17 15 Blood Pressure 115/68 Pulse Oximetry 96 Oxygen Delivery Fraction of Inspired Oxygen 30 03/04/25 04:00 03/04/25 04:00 03/04/25 04:00 Temperature Pulse Rate 66 61 Respiratory Rate 18 Blood Pressure Pulse Oximetry Oxygen Delivery Mechanical Ventilation Fraction of Inspired Oxygen 30 03/04/25 04:35 03/04/25 04:39 03/04/25 06:00 Temperature Pulse Rate 65 66 66 Respiratory Rate 18 16 Blood Pressure Pulse Oximetry 96 Oxygen Delivery Mechanical Ventilation Fraction of Inspired Oxygen 30 03/04/25 06:00 03/04/25 06:00 03/04/25 06:00 Temperature 37.1 C Pulse Rate 66 66 66 Respiratory Rate 16 16 Blood Pressure 120/76 Pulse Oximetry 98 Oxygen Delivery Fraction of Inspired Oxygen 03/04/25 06:00 03/04/25 06:45 03/04/25 06:49 Temperature Pulse Rate 66 60 59 L Respiratory Rate 16 17 16 Blood Pressure Pulse Oximetry Oxygen Delivery Fraction of Inspired Oxygen 03/04/25 07:37 03/04/25 08:00 03/04/25 08:00 Temperature 37.1 C Pulse Rate 67 64 70 Respiratory Rate 16 16 18 Blood Pressure 112/71 Pulse Oximetry 100 Oxygen Delivery Fraction of Inspired Oxygen 03/04/25 08:00 03/04/25 08:00 03/04/25 08:00 Temperature Pulse Rate 63 63 Respiratory Rate 18 Blood Pressure Pulse Oximetry 98 Oxygen Delivery Mechanical Ventilation Fraction of Inspired Oxygen 30 30 03/04/25 08:25 03/04/25 09:36 03/04/25 09:47 Temperature Pulse Rate 60 66 66 Respiratory Rate 18 18 Blood Pressure Pulse Oximetry 98 Oxygen Delivery Mechanical Ventilation Fraction of Inspired Oxygen 30 Intake/Output Intake/Output: Intake & Output 03/01/25 03/02/25 03/03/25 03/04/25 23:59 23:59 23:59 23:59 Intake Total 3729.8 2037.0 2413.5 1170.5 Output Total 4750 3050 3750 2100 Balance -1020.2 -1013.0 -1336.5 -929.5 Meds/Results Medications: Active Medications Generic Name Dose Route Start Last Admin Trade Name Freq PRN Reason Stop Dose Admin Alteplase, Recombinant 2 mg 03/01/25 18:41 03/01/25 19:01 Alteplase 2 Mg Vial (Cathflo) IV PUSH 2 mg ONCE PRN Administration Line Occlusion Apixaban 5 mg 02/25/25 10:25 03/04/25 08:26 Apixaban 5 Mg Tablet PO 5 mg Q12HR SANA Administration Folic Acid 1 mg 02/25/25 09:00 03/04/25 08:26 Folic Acid 1 Mg/0.2 Ml Inj IV PUSH 1 mg QAM SANA Administration Levetiracetam 1,000 mg in 100 mls @ 400 mls/hr 02/27/25 12:00 03/04/25 05:32 Keppra Iv IVPB Infused Q6H SANA Infusion Propofol 100 mls @ 0 mls/hr 03/02/25 05:25 03/04/25 08:00 Diprivan IV CONT 0 mcg/kg/min .Q0M SANA 0 mls/hr Titration Protocol Dexmedetomidine HCl 400 mcg in 100 mls @ 24.325 mls/hr 03/03/25 08:00 03/04/25 09:47 Precedex 400 Mcg/100 Ml IV CONT 0.7 mcg/kg/hr .Q4H7M SANA 24.33 mls/hr Administration Protocol 0.7 MCG/KG/HR Valproate Sodium 1,000 mg/ 60 mls @ 57.5 mls/hr 03/03/25 12:00 03/04/25 05:18 Dextrose IVPB 57.5 mls/hr Q6H SANA Administration Gentamicin Sulfate 450 mg/ 111.25 mls @ 100 mls/hr 03/04/25 09:48 Dextrose IVPB 03/04/25 10:58 ONCE ONE Lorazepam 2 mg 02/26/25 12:32 03/02/25 05:07 Lorazepam Inj (*Crx) 2 Mg/Ml Vial IV PUSH 2 mg Q2H PRN Administration seizures Multi-Ingred Cream/Lotion/Oil/Oint 1 applic 02/25/25 09:00 03/04/25 08:27 Mineral Oil/White Petrolatum Ointment EACH EYE Not Given Q12HR SANA Multivitamins/Calcium 1 tablet 02/25/25 09:00 03/04/25 08:27 Therapeutic Multivitamins/Minerals Tab (*Bkc) PO 1 tablet DAILY SANA Administration Ondansetron HCl 4 mg 02/24/25 21:49 02/24/25 22:23 Ondansetron Inj 4 Mg/2 Ml Vial IV PUSH 4 mg Q6H PRN Administration Nausea And Vomiting Pantoprazole Sodium 40 mg 02/25/25 09:00 03/04/25 08:27 Pantoprazole Sodium Iv 40 Mg Vial IV PUSH 40 mg Q12HR SANA Administration Phenytoin Sodium 150 mg 03/03/25 14:00 03/04/25 05:18 Phenytoin Sodium Inj 100 Mg/2 Ml Vial (*Bkc) IV PUSH 150 mg Q8HR SANA Administration Polyethylene Glycol 17 gm 02/28/25 09:00 03/04/25 08:27 Polyethylene Glycol 3350 17 Gm Powd.Pack PO 17 gm QAM SANA Administration Senna/Docusate Sodium 1 tab 03/01/25 21:00 03/03/25 21:08 Senna/Docusate Sodium Tablet PO 1 tab HS SANA Administration Sodium Chloride 10 ml 02/26/25 22:00 03/04/25 05:18 Central Line Flush IV PUSH 10 ml Q8HR SANA Administration Sodium Chloride 20 ml 02/26/25 16:48 Central Line Flush IV PUSH PRN PRN after blood draws Thiamine HCl 100 mg 02/25/25 09:00 03/04/25 08:26 Thiamine Hcl 200 Mg/2 Ml Vial IV PUSH 100 mg QAM SANA Administration Radiology Results: ITS Impressions Head CT 02/28/25 14:57 IMPRESSION: 1. Persistent small left frontal scalp hematoma. No fracture or acute intracranial process. Chest X-Ray 03/04/25 06:34 Impression: 1: Bilateral predominantly basilar airspace disease which is not significantly changed dating back to 03/01/2025. Differential diagnosis includes edema, pneumonia and/or atelectasis. Labs Labs: Laboratory Results - last 24 hr 03/03/25 03/03/25 03/03/25 04:53 09:32 12:54 WBC RBC Hgb Hct MCV MCH MCHC RDW Plt Count MPV Immature Gran % (Auto) Neut % (Auto) Lymph % (Auto) [place] % (Auto) Eos % (Auto) Baso % (Auto) Lymph # (Auto) [place] # (Auto) Eos # (Auto) Baso # (Auto) Abs Immat Gran (auto) Absolute Neuts (auto) Absolute Nucleated RBC Nucleated RBC % Puncture Site ABG pH ABG pCO2 ABG pO2 ABG PO2/FiO2 Ratio ABG HCO3 ABG O2 Saturation ABG O2 Content ABG Base Excess A-a Gradient Oxyhemoglobin Carboxyhemoglobin Methemoglobin Reduced Hemoglobin Total Hemoglobin O2 Delivery Device O2 Liters/Min Minute Volume Vent Rate 14 Vent Mode Cmv FiO2 Tidal Volume 400 PEEP 5 Peak Inspir Pressure Pressure Support Sodium Potassium Chloride Carbon Dioxide Anion Gap BUN Creatinine Estim Creat Clear Calc Estimated GFR Glucose POC Capillary Glucose Calcium Phosphorus Magnesium Total Bilirubin AST ALT Alkaline Phosphatase Total Protein Albumin Triglycerides Phenytoin 4 L 8 L Valproic Acid 64.2 03/03/25 03/03/25 03/04/25 13:05 18:45 00:28 WBC RBC Hgb Hct MCV MCH MCHC RDW Plt Count MPV Immature Gran % (Auto) Neut % (Auto) Lymph % (Auto) [place] % (Auto) Eos % (Auto) Baso % (Auto) Lymph # (Auto) [place] # (Auto) Eos # (Auto) Baso # (Auto) Abs Immat Gran (auto) Absolute Neuts (auto) Absolute Nucleated RBC Nucleated RBC % Puncture Site ABG pH ABG pCO2 ABG pO2 ABG PO2/FiO2 Ratio ABG HCO3 ABG O2 Saturation ABG O2 Content ABG Base Excess A-a Gradient Oxyhemoglobin Carboxyhemoglobin Methemoglobin Reduced Hemoglobin Total Hemoglobin O2 Delivery Device O2 Liters/Min Minute Volume Vent Rate Vent Mode FiO2 Tidal Volume PEEP Peak Inspir Pressure Pressure Support Sodium Potassium Chloride Carbon Dioxide Anion Gap BUN Creatinine Estim Creat Clear Calc Estimated GFR Glucose POC Capillary Glucose 128 H 125 H 101 Calcium Phosphorus Magnesium Total Bilirubin AST ALT Alkaline Phosphatase Total Protein Albumin Triglycerides Phenytoin Valproic Acid 03/04/25 03/04/25 04:40 04:43 WBC 5.8 RBC 3.81 L Hgb 9.8 L Hct 31.8 L MCV 83.5 MCH 25.7 L MCHC 30.8 L RDW 17.7 H Plt Count 228 MPV 9.4 Immature Gran % (Auto) 0.5 Neut % (Auto) 66.3 Lymph % (Auto) 20.1 [place] % (Auto) 10.6 H Eos % (Auto) 2.2 Baso % (Auto) 0.3 Lymph # (Auto) 1.17 [place] # (Auto) 0.6 Eos # (Auto) 0.1 Baso # (Auto) 0.0 Abs Immat Gran (auto) 0.03 Absolute Neuts (auto) 3.9 Absolute Nucleated RBC 0.000 Nucleated RBC % 0.0 Puncture Site Right radial ABG pH 7.426 ABG pCO2 35.4 ABG pO2 74.5 L ABG PO2/FiO2 Ratio 2.48 ABG HCO3 22.8 ABG O2 Saturation 95.4 ABG O2 Content 14.4 L ABG Base Excess -1.2 A-a Gradient 97.8 Oxyhemoglobin 93.7 Carboxyhemoglobin 0.4 Methemoglobin 0.1 Reduced Hemoglobin 5.8 H Total Hemoglobin 10.9 L O2 Delivery Device Ventilator O2 Liters/Min Not Reportable Minute Volume Not Reportable Vent Rate 15 Vent Mode Cmv FiO2 30 Tidal Volume 400 PEEP 5 Peak Inspir Pressure Not Reportable Pressure Support Not Reportable Sodium 135 L Potassium 3.7 Chloride 104 Carbon Dioxide 25 Anion Gap 6 BUN 8 Creatinine 0.54 L Estim Creat Clear Calc 181 Estimated GFR > 60 Glucose 115 H POC Capillary Glucose Calcium 8.9 Phosphorus 4.3 Magnesium 2.0 Total Bilirubin 0.2 AST 45 H ALT 15 Alkaline Phosphatase 85 Total Protein 6.6 Albumin 3.6 Triglycerides 158 H Phenytoin Valproic Acid Quality VTE Prophylaxis VTE prophylaxis: pharmacologic ordered
[2025-03-04] MEDS: LACTATED RINGERS 1,000 ML 100 ML IV CONT (10:54)
[2025-03-04] MEDS: GENTAMICIN SULFATE INJ 450 MG in DEXTROSE 5% 100 ML 100 MG IVPB (10:55)
--- NOTE | 2025-03-04 11:26 | PCNFU ---
Nutrition Follow-Up Complete: Suboptimal Energy Intake as related to mechanical vent as evidenced by NPO/TF goal: Meet estimated nutritional needs. We will continue current goal. Pt current nutrition is Vital HP at 30 ml/hr. Last recorded weight is 138.8 kg, up from 136.5 kg on admit. Bowel Motility: No BM reported. Labs Reviewed: TG 158, Cr 0.54, Glu 115, Hct 31.8, Na 135 Meds Noted:Thiamine, Protonix, Folic Acid, Keppra, Miralax. Skin: WNL Additional Notes: Patient remains on mechanical vent. Tube feedings and sedation on hold. Plans for extubated today. EEG today. Will monitor weight, labs, skin, diet orders, meds every Monday and Monday.
[2025-03-04 12:25] LABS: Alveolar/Arterial O2 Gradient 93.5 mmHg; Fractional Inspired Oxygen 30 %; HCO3 ABG 22.7 mEq/l (22.0-26.0); Oxygen Content ABG 15.0 %vol (16.0-22.0); Oxygen Saturation ABG 96.5 % (95.0-100.0); PCO2 ABG 33.6 mmHg (35.0-45.0); PO2 ABG 80.9 mmHg (80.0-100.0); PO2 FiO2 Ratio Arterial Blood 2.70 %
[2025-03-04 12:43] LABS: Modified Allen's Test Pass; Site Drawn LEFT RADIAL
[2025-03-04 12:44] LABS: Arterial Blood Gas Pressure Support 10 cmH2O
[2025-03-04] MEDS: ONDANSETRON INJ 4 MG/2 ML VIAL IV PUSH ×2 (13:12→18:54)
[2025-03-04] MEDS: dexmedeTOMIDine 400 MCG/100 ML 400 MCG/100 ML BAG 17.38 MCG IV CONT (14:23)
--- NOTE | 2025-03-04 15:07 | WPDNEUROLOGY ---
Neurology EEG Report General Information Date of Study: 03/04/25 TEST EEG DIAGNOSIS Recurrent seizures CONDITION OF RECORDING awake, drowsy and sleep. EEG NUMBER [id number] CLINICAL HISTORY 39 years old with recurrent seizures in spite of receiving the medications. EEG DESCRIPTION Background rhythm consists of low voltage 8 to 9 hertz per 2nd alpha posteriorly admixed with low-voltage 15 to 21 hertz per 2nd beta activity. Bilateral symmetrical sleep activity is noted with admixture of beta theta and delta activity in addition to multiple movement artifacts stroke. Bihemispheric to 3 hertz per 2nd medium voltage delta activity is noted independently admixed with 5 to 7 hertz per 2nd low to medium voltage theta activity. Hyperventilation not done. Photic stimulation not done. Non paroxysmal. Nonfocal. Nonlateralizing. IMPRESSION Abnormal record due to the presence of bihemispheric theta and delta activity no there is no evidence of any paroxysmal spikes spike and slow wave discharges throughout the tracing. Clinical correlation recommended these abnormalities could be suggestive of underlying organic a metabolic encephalopathy in addition to the possibility of postictal state clinical correlation recommended.
[2025-03-04] MEDS: PROCHLORPERAZINE MALEATE 5 MG TABLET 10 MG PO (20:54)
--- NOTE | 2025-03-04 23:39 | PC.NURSE ---
Pt woke up and attempted to climb out of bed. Bed alarm alerted staff who immediately responded to pt's bedside. Pt confused and angry, stating she wants to go home because she is not being treated. Pt also states that she had requested to be transferred. When asked where pt wants to go, she reports [facility]. Explained to pt that she is at [facility]. Pt tearful stating that she wants to leave because she is safer at home and that she texted her father to come and get her. Staff attempted to explain to pt that she is not ready to go home for multiple reasons. Pt states that she does not care and that she is leaving if her father comes up to the hospital.
[2025-03-05] VITALS (15 sets, daily range): BP systolic 96–142; BP diastolic 63–97; PULSE 71–98; RESP 8–21; TEMP 36.6–37.6; O2SAT 95–100
[2025-03-05] MEDS: ACETAMINOPHEN 500 MG TABLET 1000 MG PO ×4 (00:13→21:01)
[2025-03-05] MEDS: ONDANSETRON INJ 4 MG/2 ML VIAL IV PUSH ×3 (02:17→19:44)
[2025-03-05] MEDS: PHENYTOIN SODIUM INJ 100 MG/2 ML VIAL (*BKC) 150 MG IV PUSH ×3 (05:01→21:02)
[2025-03-05] MEDS: CENTRAL LINE FLUSH 10 ML IV PUSH ×3 (05:01→21:02)
[2025-03-05] MEDS: VALPROATE SODIUM INJ 1,000 MG in DEXTROSE 5% IN WATER 50 ML 57.5 MG IVPB ×4 (05:02→23:54)
[2025-03-05] MEDS: levETIRAcetam 1000MG/NACL100ML 1,000 MG/100 ML BAG 400 MG IVPB ×4 (05:03→23:54)
[2025-03-05 05:20] LABS: Hematocrit 31.6 % (37.0-47.0); Hemoglobin 9.8 g/dL (12.0-15.0); Mean Corpuscular HGB Conc 31.0 g/dl (32-36); Mean Corpuscular Hemoglobin 25.9 pg (26-34); Mean Corpuscular Volume 83.6 fl (80-100); Platelet Count Result 234 k/mm3 (150-375); Red Blood Count 3.78 M/mm3 (4.2-5.4); White Blood Count 5.9 K/mm3 (4.5-10.0)
[2025-03-05 05:50] LABS: Alanine Aminotransferase 16 U/L (6-35); Albumin Level 3.8 g/dL (3.5-5.1); Alkaline Phosphatase 88 U/L (38-126); Anion Gap 6 mmol/L (4-12); Aspartate Amino Transferase 40 U/L (14-36); Bilirubin,Total 0.3 mg/dL (0.2-1.3); Blood Urea Nitrogen 6 mg/dL (7-17); Calcium 8.9 mg/dL (8.4-10.2); Carbon Dioxide 24 mmol/L (22-30); Chloride 102 mmol/L (98-107); Estimated CRCL calculation 194 ml/min; Estimated Glomerular Filt Rate > 60; Glucose 85 mg/dL (65-110); Magnesium 1.8 mg/dL (1.6-2.3); Potassium 3.7 mmol/L (3.4-5.0); Sodium 132 mmol/L (137-145); Total Protein 6.8 g/dL (6.3-8.2); Triglycerides 138 mg/dL (<150)
--- NOTE | 2025-03-05 09:15 | WPDINTPN ---
Progress Note: A&P Assessment and Plan (1) Seizure disorder: Code(s): G40.909 - Epilepsy, unspecified, not intractable, without status epilepticus Status: Chronic Assessment and Plan: 02/24: Patient was found by police having seizures in her car, upon EMS arrival patient received Versed IV, she also received multiple doses of Ativan in the ER. Patient presented with multiple seizure activity. Was admitted to IMU a she had seizure activity for approximately 24 minute, patient was intubated as she was given multiple doses of IV Versed, IV Ativan,, diazepam propofol. -valproic level is on admission was significantly low, -lamotrigine and levetiracetam levels pending -discussed with Neurology, increased Keppra to 1000mg q.6 hours and valproic acid to 1000 mg Q 8 hours -patient was also given 1 dose of phenobarbital 260 mg IV x1, if the seizures are associated with alcohol withdrawal, given long half life of phenobarbital 03/02: Early hours patient had seizures x2 lasting 12 minutes and 20 minutes, patient self extubated and was reintubated for airway protection. Received Dilantin 1000 mg IV x1 loading dose and Dilantin 100 mg IV q.8 hours. Neurology is aware 03/03: Discussed extensively with Neurology, will obtain EEG stat, also obtain valproic acid and Dilantin levels, if they are subtherapeutic , neurology may increase the dose and get the levels therapeutic before adding any other anti epileptic. -02/26: EEG: this is a normal EEG obtained during awake and Drowsy states 03/04 EEG Abnormal record due to the presence of bihemispheric theta and delta activity no there is no evidence of any paroxysmal spikes spike and slow wave discharges throughout the tracing. Clinical correlation recommended these abnormalities could be suggestive of underlying organic a metabolic encephalopathy in addition to the possibility of postictal state clinical correlation recommended. Continue Keppra, phenytoin and valproic acid at current dose (2) Acute hypoxic respiratory failure: Code(s): J96.01 - Acute respiratory failure with hypoxia Status: Acute Assessment and Plan: Patient was intubated for airway protection secondary to prolonged seizure activity 03/04 extubated after a successful weaning trial. Currently on room air Incentive spirometry (3) Alcoholism: Code(s): F10.20 - Alcohol dependence, uncomplicated Status: Acute Assessment and Plan: Patient drinks 750 mL of hard liquor every day. Now out of window of withdrawal Off Precedex infusion Continue folic acid and thiamine (4) Pulmonary embolism: Onset Date: 2023 Code(s): I26.99 - Other pulmonary embolism without acute cor pulmonale Status: Acute Assessment and Plan: Patient has a history of pulmonary embolism in 2023 -on Eliquis at home, will continue (5) Anxiety: Code(s): F41.9 - Anxiety disorder, unspecified Status: Chronic Assessment and Plan: Resume sertraline (6) Depression: Qualifiers: Depression Type: unspecified Qualified Code(s): F32.9 - Major depressive disorder, single episode, unspecified Code(s): F32.9 - Major depressive disorder, single episode, unspecified Status: Chronic Assessment and Plan: Resume sertraline (7) Illicit drug use: Code(s): F19.90 - Other psychoactive substance use, unspecified, uncomplicated Status: Acute Assessment and Plan: Patient takes synthetic heroin, opiates, cannabinoids in the past Denies any recent use apart from vaping (8) Urinary tract infection: Code(s): N39.0 - Urinary tract infection, site not specified Status: Acute Assessment and Plan: Patient UA was abnormal and suggestive UTI. Patient was started on Rocephin. Cultures came back with ESBL E coli which is sensitive only to carbapenems or aminoglycoside. Due to patient's difficult to control seizures carbapenems will not be ordered.. Patient was given 1 dose of gentamicin IV with IV fluid (9) Abdominal pain: Code(s): R10.9 - Unspecified abdominal pain Status: Inactive Assessment and Plan: Lipase on presentation and most recent LFTs were normal Check CT abdomen pelvis Repeat lipase Plan DVT prophylaxis: Eliquis Stress ulcer prophylaxis: Protonix Nutrition: Will order diet Code Status: Full code Incentive spirometry PT OT Up in chair If CT scan is negative will transfer out of ICU today. Subjective Date/time seen: 03/05/25 Patient was extubated yesterday after a successful weaning trial. She has done well and is currently on room air. She has not had any seizures overnight. She complains of abdominal pain this morning. Points to epigastric area. She also states she has nausea but no vomiting. She is hungry and would like to eat food. Denies any other complaints. Patient denies fever, chest pain, shortness of breath, cough, , diarrhea, headache or constipation. All other systems were reviewed and were negative Off of Precedex infusion. Good urine output. Afebrile. Review of Systems Review of Systems: All systems reviewed & are unremarkable except as noted in HPI and below (HPI) Exam Narrative: General: Alert awake no acute distress HEENT:? Pupils equal and reactive, sclera is clear, Neck:? Supple Respiratory:? Clear to auscultation bilaterally, no wheezing, adequate air entry Cardiac:? S1-S2 is normal, reviewed return room Abdomen:? Soft, mild tenderness to palpation epigastric area, nondistended, hypoactive bowel sounds, obese Extremities:? Trace edema bilaterally, palpable pedal pulses Neuro:? AO x3, moves all 4 extremities and follows commands Skin:? No lesions noted Psych:? Normal speech and affect Objective Data Vital Signs Vital Signs: Vital Signs - 24 hr 03/04/25 09:36 03/04/25 09:47 03/04/25 10:00 Temperature Pulse Rate 66 66 70 Respiratory Rate 18 18 18 Blood Pressure Pulse Oximetry Oxygen Delivery Oxygen Flow Rate Fraction of Inspired Oxygen 03/04/25 10:00 03/04/25 10:00 03/04/25 10:00 Temperature 37.1 C Pulse Rate 70 70 77 Respiratory Rate 18 18 Blood Pressure 108/71 Pulse Oximetry 97 Oxygen Delivery Oxygen Flow Rate Fraction of Inspired Oxygen 03/04/25 11:18 03/04/25 11:52 03/04/25 12:00 Temperature 37.4 C Pulse Rate 65 67 75 Respiratory Rate 18 25 H Blood Pressure 126/77 Pulse Oximetry 99 99 Oxygen Delivery Mechanical Ventilation Oxygen Flow Rate Fraction of Inspired Oxygen 30 03/04/25 12:00 03/04/25 12:00 03/04/25 12:46 Temperature Pulse Rate 75 75 80 Respiratory Rate 25 H 20 Blood Pressure Pulse Oximetry 97 98 Oxygen Delivery Nasal Cannula Nasal Cannula Oxygen Flow Rate 2 2 Fraction of Inspired Oxygen 03/04/25 14:00 03/04/25 14:00 03/04/25 14:00 Temperature 37.1 C Pulse Rate 71 65 65 Respiratory Rate 28 H 18 Blood Pressure 145/74 H Pulse Oximetry 100 Oxygen Delivery Oxygen Flow Rate Fraction of Inspired Oxygen 03/04/25 14:23 03/04/25 14:23 03/04/25 16:00 Temperature Pulse Rate 74 74 84 Respiratory Rate 16 16 18 Blood Pressure Pulse Oximetry 100 Oxygen Delivery Nasal Cannula Oxygen Flow Rate 2 Fraction of Inspired Oxygen 28 03/04/25 16:00 03/04/25 16:00 03/04/25 16:00 Temperature 37.1 C 37.3 C Pulse Rate 84 84 78 Respiratory Rate 18 22 H Blood Pressure 129/67 129/67 Pulse Oximetry 100 95 Oxygen Delivery Oxygen Flow Rate Fraction of Inspired Oxygen 03/04/25 16:00 03/04/25 16:30 03/04/25 17:00 Temperature Pulse Rate 83 79 84 Respiratory Rate 18 18 20 Blood Pressure Pulse Oximetry Oxygen Delivery Oxygen Flow Rate Fraction of Inspired Oxygen 03/04/25 18:00 03/04/25 18:00 03/04/25 20:00 Temperature 37.1 C 37.3 C Pulse Rate 84 84 87 Respiratory Rate 22 H 14 Blood Pressure 122/68 141/81 H Pulse Oximetry 99 99 Oxygen Delivery Oxygen Flow Rate Fraction of Inspired Oxygen 03/04/25 20:00 03/04/25 20:00 03/04/25 22:00 Temperature 37.5 C Pulse Rate 87 98 Respiratory Rate 18 Blood Pressure 112/68 Pulse Oximetry 98 Oxygen Delivery Room Air Oxygen Flow Rate Fraction of Inspired Oxygen 03/04/25 22:00 03/05/25 00:00 03/05/25 00:00 Temperature 37.5 C Pulse Rate 98 98 Respiratory Rate 16 Blood Pressure 128/97 H Pulse Oximetry 96 Oxygen Delivery Room Air Oxygen Flow Rate Fraction of Inspired Oxygen 03/05/25 00:00 03/05/25 02:00 03/05/25 02:00 Temperature 37.6 C H Pulse Rate 91 98 98 Respiratory Rate 16 Blood Pressure 121/86 Pulse Oximetry 95 Oxygen Delivery Oxygen Flow Rate Fraction of Inspired Oxygen 03/05/25 04:00 03/05/25 04:00 03/05/25 04:00 Temperature 37.2 C Pulse Rate 93 91 Respiratory Rate 18 Blood Pressure 96/66 L Pulse Oximetry 96 Oxygen Delivery Room Air Oxygen Flow Rate Fraction of Inspired Oxygen 03/05/25 06:00 03/05/25 06:00 03/05/25 08:00 Temperature 37.1 C 37.0 C Pulse Rate 84 84 76 Respiratory Rate 16 8 L Blood Pressure 101/71 119/72 Pulse Oximetry 99 99 Oxygen Delivery Oxygen Flow Rate Fraction of Inspired Oxygen Intake/Output Intake/Output: Intake & Output 03/02/25 03/03/25 03/04/25 03/05/25 23:59 23:59 23:59 23:59 Intake Total 2037.0 2413.5 3022.8 270 Output Total 3050 3750 5175 675 Balance -1013.0 -1336.5 -2152.2 -405 Meds/Results Medications: Active Medications Generic Name Dose Route Start Last Admin Trade Name Freq PRN Reason Stop Dose Admin Acetaminophen 1,000 mg 03/05/25 00:08 03/05/25 06:13 Acetaminophen 500 Mg Tablet PO 1,000 mg Q6H PRN Administration Mild Pain (1-3) or Fever Alteplase, Recombinant 2 mg 03/01/25 18:41 03/01/25 19:01 Alteplase 2 Mg Vial (Cathflo) IV PUSH 2 mg ONCE PRN Administration Line Occlusion Apixaban 5 mg 02/25/25 10:25 03/04/25 20:54 Apixaban 5 Mg Tablet PO 5 mg Q12HR SANA Administration Folic Acid 1 mg 02/25/25 09:00 03/04/25 08:26 Folic Acid 1 Mg/0.2 Ml Inj IV PUSH 1 mg QAM SANA Administration Levetiracetam 1,000 mg in 100 mls @ 400 mls/hr 02/27/25 12:00 03/05/25 05:18 Keppra Iv IVPB Infused Q6H SANA Infusion Valproate Sodium 1,000 mg/ 60 mls @ 57.5 mls/hr 03/03/25 12:00 03/05/25 06:05 Dextrose IVPB Infused Q6H SANA Infusion Lorazepam 2 mg 02/26/25 12:32 03/02/25 05:07 Lorazepam Inj (*Crx) 2 Mg/Ml Vial IV PUSH 2 mg Q2H PRN Administration seizures Multivitamins/Calcium 1 tablet 02/25/25 09:00 03/04/25 08:27 Therapeutic Multivitamins/Minerals Tab (*Bkc) PO 1 tablet DAILY SANA Administration Ondansetron HCl 4 mg 02/24/25 21:49 03/05/25 02:17 Ondansetron Inj 4 Mg/2 Ml Vial IV PUSH 4 mg Q6H PRN Administration Nausea And Vomiting Pantoprazole Sodium 40 mg 02/25/25 09:00 03/04/25 20:14 Pantoprazole Sodium Iv 40 Mg Vial IV PUSH 40 mg Q12HR SANA Administration Phenytoin Sodium 150 mg 03/03/25 14:00 03/05/25 05:01 Phenytoin Sodium Inj 100 Mg/2 Ml Vial (*Bkc) IV PUSH 150 mg Q8HR SANA Administration Polyethylene Glycol 17 gm 02/28/25 09:00 03/05/25 08:06 Polyethylene Glycol 3350 17 Gm Powd.Pack PO Not Given QAM SANA Senna/Docusate Sodium 1 tab 03/01/25 21:00 03/04/25 20:58 Senna/Docusate Sodium Tablet PO Not Given HS SANA Sodium Chloride 10 ml 02/26/25 22:00 03/05/25 05:01 Central Line Flush IV PUSH 10 ml Q8HR SANA Administration Sodium Chloride 20 ml 02/26/25 16:48 Central Line Flush IV PUSH PRN PRN after blood draws Thiamine HCl 100 mg 02/25/25 09:00 03/04/25 08:26 Thiamine Hcl 200 Mg/2 Ml Vial IV PUSH 100 mg QAM SANA Administration Radiology Results: ITS Impressions Head CT 02/28/25 14:57 IMPRESSION: 1. Persistent small left frontal scalp hematoma. No fracture or acute intracranial process. Chest X-Ray 03/04/25 06:34 Impression: 1: Bilateral predominantly basilar airspace disease which is not significantly changed dating back to 03/01/2025. Differential diagnosis includes edema, pneumonia and/or atelectasis. Labs Labs: Laboratory Results - last 24 hr 03/03/25 03/04/25 03/04/25 04:53 11:25 12:21 WBC RBC Hgb Hct MCV MCH MCHC RDW Plt Count MPV Puncture Site Left radial ABG pH 7.448 ABG pCO2 33.6 L ABG pO2 80.9 ABG PO2/FiO2 Ratio 2.70 ABG HCO3 22.7 ABG O2 Saturation 96.5 ABG O2 Content 15.0 L ABG Base Excess -0.8 A-a Gradient 93.5 Oxyhemoglobin 94.9 Total Hemoglobin 11.2 L O2 Delivery Device Ventilator O2 Liters/Min Not Reportable Minute Volume Not Reportable Vent Rate 14 Not Reportable Vent Mode Cmv Spontaneous FiO2 30 Tidal Volume 400 Not Reportable PEEP 5 5 Peak Inspir Pressure Not Reportable Pressure Support 10 Sodium Potassium Chloride Carbon Dioxide Anion Gap BUN Creatinine Estim Creat Clear Calc Estimated GFR Glucose POC Capillary Glucose 105 Calcium Phosphorus Magnesium Total Bilirubin AST ALT Alkaline Phosphatase Total Protein Albumin Triglycerides 03/04/25 03/05/25 23:15 05:09 WBC 5.9 RBC 3.78 L Hgb 9.8 L Hct 31.6 L MCV 83.6 MCH 25.9 L MCHC 31.0 L RDW 17.6 H Plt Count 234 MPV 9.5 Puncture Site ABG pH ABG pCO2 ABG pO2 ABG PO2/FiO2 Ratio ABG HCO3 ABG O2 Saturation ABG O2 Content ABG Base Excess A-a Gradient Oxyhemoglobin Total Hemoglobin O2 Delivery Device O2 Liters/Min Minute Volume Vent Rate Vent Mode FiO2 Tidal Volume PEEP Peak Inspir Pressure Pressure Support Sodium 132 L Potassium 3.7 Chloride 102 Carbon Dioxide 24 Anion Gap 6 BUN 6 L Creatinine 0.48 L Estim Creat Clear Calc 194 Estimated GFR > 60 Glucose 85 POC Capillary Glucose 88 Calcium 8.9 Phosphorus 3.8 Magnesium 1.8 Total Bilirubin 0.3 AST 40 H ALT 16 Alkaline Phosphatase 88 Total Protein 6.8 Albumin 3.8 Triglycerides 138 Quality VTE Prophylaxis VTE prophylaxis: pharmacologic ordered
[2025-03-05 09:37] LABS: Lipase 231 U/L (23-300)
[2025-03-05] MEDS: POTASSIUM CHLORIDE 20 MEQ PACKET (FOR LIQUID) 40 MEQ PO (10:04)
[2025-03-05] MEDS: THIAMINE HCL 200 MG/2 ML VIAL 100 MG IV PUSH (10:05)
[2025-03-05] MEDS: FOLIC ACID 1 MG/0.2 ML INJ IV PUSH (10:05)
[2025-03-05] MEDS: PANTOPRAZOLE SODIUM IV 40 MG VIAL IV PUSH ×2 (10:05→21:02)
[2025-03-05] MEDS: APIXABAN 5 MG TABLET PO ×2 (10:05→21:01)
[2025-03-05] MEDS: THERAPEUTIC MULTIVITAMINS/MINERALS TAB (*BKC) 1 TABLET PO (10:05)
--- NOTE | 2025-03-05 10:49 | PCFNICU ---
ICU Rounding Note: Pt current nutrition is Regular. Last recorded weight is 130.1 kg, up from 136.5 kg on admit. Bowel Motility: Last reported BM 03/05 Labs Reviewed:Cr 0.48, Na 132, BUN 6 Meds Noted: Protonix, Folic Acid, Keppra Skin: WNL Additional Notes: Patient diet order has advanced to a regular. Agree with diet orders. No further nutritional interventions needed at this time. Following daily in ICU rounds. Will monitor weight, labs, skin, diet orders, meds every 7 days.
[2025-03-05] MEDS: LOPERAMIDE HCL 2 MG CAPSULE 4 MG PO (12:29)
[2025-03-05] MEDS: ARTIFICIAL TEARS OPHTH SOLN 15 ML BOTTLE 1 DROP EACH EYE (19:44)
[2025-03-06] VITALS (21 sets, daily range): BP systolic 106–127; BP diastolic 58–80; PULSE 69–101; RESP 12–23; TEMP 36.4–36.9; O2SAT 93–100
[2025-03-06] MEDS: LORazepam INJ (*CRX) 2 MG/ML VIAL IV PUSH ×4 (03:03→20:44)
--- NOTE | 2025-03-06 03:24 | PC.NURSE ---
Pt used call light. States that she was not feeling well. Nursing staff asking pt questions about how she was feeling when pt had a seizure. Pt rolled onto her left side, clonic movement noted to bilateral extremities, drooling, uncontrollable head movement, facial flushing, teeth clenched. Pt administered Ativan 2 mg IVP per order. Seizure activity lasted [address] South notified.
--- NOTE | 2025-03-06 03:38 | PC.NURSE ---
Dr. South at pt's bedside. Pt experienced second seizure. Order received for Ativan 3 mg IVP. Administered STAT. Seizure lasted 6 minutes.
[2025-03-06] MEDS: LORazepam INJ (*CRX) 2 MG/ML VIAL 3 MG IV PUSH ×3 (03:39→22:53)
--- NOTE | 2025-03-06 04:01 | PC.NURSE ---
Updated Dr. Victoria to pt's current condition. New orders for additional, one time doses of Dilantin and Depakote obtained. Continue with previous medication orders as well. See MAR for new orders.
[2025-03-06] MEDS: VALPROATE SODIUM INJ 500 MG in DEXTROSE 5% IN WATER 50 ML 57.5 MG IVPB (04:14)
[2025-03-06] MEDS: PHENYTOIN SODIUM IVPB ×2 (04:15→21:02)
[2025-03-06] MEDS: SODIUM CHLORIDE 0.9% IVPB ×4 (04:15→23:53)
--- NOTE | 2025-03-06 04:22 | P.PNCROSS_ITS ---
Event Note Event Note Event Note: Nurse called to inform patient had a seizure. It lasted 7 minutes, she gave At eliane 2 mg IV push 3 minutes in. I went to evaluate the patient and she was having a 2nd seizure. Unresponsive, slight tremor of her right upper extremity although she was laying on her left side. Pupils equal round and reactive to light. Heart Regular rhythm. Slight diffuse crackles but saturating well on room air. Nurse reports this was milder than the last seizure. Ordered 3 mg IV push and the seizure broke immediately. Lasted 6 minutes total. Neurology notified and recommended additional 1 time doses of Dilantin and Depakote. Nurses continue to monitor.
[2025-03-06] MEDS: CENTRAL LINE FLUSH 10 ML IV PUSH ×3 (04:40→21:29)
[2025-03-06 04:47] LABS: Hematocrit 31.0 % (37.0-47.0); Hemoglobin 9.6 g/dL (12.0-15.0); Mean Corpuscular HGB Conc 31.0 g/dl (32-36); Mean Corpuscular Hemoglobin 26.0 pg (26-34); Mean Corpuscular Volume 84.0 fl (80-100); Platelet Count Result 226 k/mm3 (150-375); Red Blood Count 3.69 M/mm3 (4.2-5.4); White Blood Count 4.7 K/mm3 (4.5-10.0)
[2025-03-06 05:01] LABS: Alanine Aminotransferase 14 U/L (6-35); Albumin Level 3.6 g/dL (3.5-5.1); Alkaline Phosphatase 82 U/L (38-126); Anion Gap 8 mmol/L (4-12); Aspartate Amino Transferase 26 U/L (14-36); Bilirubin,Total 0.1 mg/dL (0.2-1.3); Blood Urea Nitrogen 11 mg/dL (7-17); Calcium 8.8 mg/dL (8.4-10.2); Carbon Dioxide 23 mmol/L (22-30); Chloride 108 mmol/L (98-107); Estimated CRCL calculation 184 ml/min; Estimated Glomerular Filt Rate > 60; Glucose 94 mg/dL (65-110); Magnesium 2.1 mg/dL (1.6-2.3); Potassium 3.8 mmol/L (3.4-5.0); Sodium 139 mmol/L (137-145); Total Protein 6.6 g/dL (6.3-8.2)
[2025-03-06] MEDS: levETIRAcetam 1000MG/NACL100ML 1,000 MG/100 ML BAG 400 MG IVPB ×2 (05:53→11:52)
[2025-03-06] MEDS: VALPROATE SODIUM INJ 1,000 MG in DEXTROSE 5% IN WATER 50 ML 60 MG IVPB ×2 (05:54→12:06)
[2025-03-06] MEDS: PHENYTOIN SODIUM INJ 100 MG/2 ML VIAL (*BKC) 150 MG IV PUSH (05:54)
[2025-03-06] MEDS: ONDANSETRON INJ 4 MG/2 ML VIAL IV PUSH (07:51)
--- NOTE | 2025-03-06 08:19 | PCOTNOTE ---
Attempted OT evaluation. Patient drowsy and unable to stay awake. Will follow.
--- NOTE | 2025-03-06 08:20 | PCPTNOTE ---
Attempted PT evaluation, pt not able to stay awake during PLOF questions. Pt requesting therapist return at later time. Nursing aware.
[2025-03-06] MEDS: PANTOPRAZOLE SODIUM IV 40 MG VIAL IV PUSH ×2 (09:25→21:29)
[2025-03-06] MEDS: FOLIC ACID 1 MG/0.2 ML INJ IV PUSH (09:25)
[2025-03-06] MEDS: THIAMINE HCL 200 MG/2 ML VIAL 100 MG IV PUSH (09:25)
[2025-03-06] MEDS: SERTRALINE HCL 50 MG TABLET 100 MG PO (11:52)
[2025-03-06] MEDS: APIXABAN 5 MG TABLET PO ×2 (11:52→21:29)
[2025-03-06] MEDS: THERAPEUTIC MULTIVITAMINS/MINERALS TAB (*BKC) 1 TABLET PO (11:52)
[2025-03-06] MEDS: PHENYTOIN SODIUM INJ 100 MG/2 ML VIAL (*BKC) 200 MG IV PUSH ×2 (13:29→22:37)
[2025-03-06] MEDS: PHENYTOIN SODIUM INJ 100 MG/2 ML VIAL (*BKC) IV PUSH (13:29)
[2025-03-06] MEDS: VALPROATE SODIUM INJ 500 MG in DEXTROSE 5% IN WATER 50 ML 55 MG IVPB (13:40)
--- NOTE | 2025-03-06 14:14 | PM.IMPN ---
Progress Note: A&P Assessment and Plan (1) Seizure disorder: Code(s): G40.909 - Epilepsy, unspecified, not intractable, without status epilepticus Status: Chronic Assessment and Plan: 02/24: Patient was found by police having seizures in her car, upon EMS arrival patient received Versed IV, she also received multiple doses of Ativan in the ER. Patient presented with multiple seizure activity. Was admitted to IMU a she had seizure activity for approximately 24 minute, patient was intubated as she was given multiple doses of IV Versed, IV Ativan,, diazepam propofol. -valproic level is on admission was significantly low, -lamotrigine and levetiracetam levels pending -discussed with Neurology, increased Keppra to 1 g q.6 hours and valproic acid to 1000mg Q 4 hours and Phenytoin 100mg q8h -patient was also given 1 dose of phenobarbital 260 mg IV x1, if the seizures are associated with alcohol withdrawal, given long half life of phenobarbital -appreciate Neurology evaluation and recommendations 03/02: Early hours patient had seizures x2 lasting 12 minutes and 20 minutes, patient self extubated and was reintubated for airway protection. Received Dilantin 1000 mg IV x1 loading dose and Dilantin 100 mg IV q.8 hours. Neurology is aware will discuss continuous eeg with unit trust manager and neurology (2) Acute hypoxic respiratory failure: Code(s): J96.01 - Acute respiratory failure with hypoxia Status: Acute Assessment and Plan: Patient was intubated for airway protection secondary to prolonged seizure activity -currently on CMV mode of ventilation, peep of 5, 30% FiO2 -chest x-ray and ABGs reviewed, ventilator adjusted, will wean FiO2 to maintain O2 sats > 92 per -patient was on Precedex confusion without any seizure activity on 03/01. -03/02 early hours patient had 2 seizures is mentioned above, self extubated after the 1st seizure, pre intubated for airway protection. Now back on propofol infusion (3) Nausea vomiting and diarrhea: Code(s): R11.2 - Nausea with vomiting, unspecified; R19.7 - Diarrhea, unspecified Status: Acute Assessment and Plan: Patient presented with nausea and vomiting also -continue Zofran PRN (4) Alcoholism: Code(s): F10.20 - Alcohol dependence, uncomplicated Status: Acute Assessment and Plan: Patient drinks 750 mL of hard liquor every day -will have to watch for alcohol withdrawal/DTs -continue folic acid and thiamine (5) Pulmonary embolism: Onset Date: 2023 Code(s): I26.99 - Other pulmonary embolism without acute cor pulmonale Status: Acute Assessment and Plan: Patient has a history of pulmonary embolism in 2023 -on Eliquis at home, will continue (6) Anxiety: Code(s): F41.9 - Anxiety disorder, unspecified Status: Chronic Assessment and Plan: Currently intubated and sedated (7) Depression: Qualifiers: Depression Type: unspecified Qualified Code(s): F32.9 - Major depressive disorder, single episode, unspecified Code(s): F32.9 - Major depressive disorder, single episode, unspecified Status: Chronic Assessment and Plan: Currently intubated and sedated (8) Illicit drug use: Code(s): F19.90 - Other psychoactive substance use, unspecified, uncomplicated Status: Acute Assessment and Plan: Patient takes synthetic heroin, opiates, cannabinoids -will watch for withdrawal Plan patient self extubated on 03/03 and was reintubated, now of the off the ventilator, patient with recurrent seizure and on three medications, Keppra, phenytoin and valporic acid, again last night patient had another seizure and was seen by associate sales manager patient was total of 5mg IV Ativan, this morning patient was quite somnolent, but appear to be awake stats feeling tired, discuss with Dr. Victoria, neurologist repeated dilantin levels are 6 and it was 8 yesterday, the neurologist increase Dilantin to 200mg IV q8 from 150mg q8, will monitor and recheck Dilantin in the am, will continue to monitor. DVT prophylaxis: Eliquis Stress ulcer prophylaxis: Protonix Nutrition: Tube feeds restarted this morning Code Status: Full code Subjective Date/time seen: 03/06/25 14:14 Interval history: Seizure Narrative: 29-year-old female with a past medical history of morbid obesity status post gastric sleeve followed by revision to gastric bypass with recurrent obesity, chronic alcohol abuse, IV drug abuse including opiates, edible THC, traumatic brain injury, seizure disorder, history of pseudoseizures anxiety and depression who presented to the ER after police found the patient having seizures in her car. By the time EMS arrived at the patient's vehicle the patient was no longer seizing but once they loaded her into the ambulance she did have 8 seizure. She had IM Versed administered because they had difficulty time obtaining IV access. The patient had a fall 2 days ago and had evidence of ecchymosis around her left eye. She went to [place] at that time and had a CT which was reportedly negative. At the time of that fall she did have some bleeding from her nose in her left ear. She drinks a handle of fire ball a night. She has drink heavily for about 8 years with extremely heavy alcohol use over the last 2 years. She had denied any drug use to the ER staff but had told me that she was taking a synthetic drug is similar to heroin. She reports she has not used marijuana gummies in about 2 weeks. The patient denies any preceding symptoms instigating her seizure. She reports that she has been compliant with her seizure medications and has not missed any. Her last drink of alcohol was on the morning of the . She does state that she has been having nausea vomiting for 3 or 4 days and has not been able to tolerate any food. She denies any hematochezia or melena. She has been having watery stools multiple times a day. She reports that her stools have been yellow to green in color and are straight water. She denies recent antibiotic use. She denies fevers or chills. She reports that is not unusual for her to have watery stools when she is drinking heavily. She denies any chest pain or shortness of breath. He denies any headache beyond what would be expected given her fall and head trauma from a few days ago. In the IMU patient initially had a seizure lasting about 5 minutes. The patient had lost her IV access. Subsequently 10 mg of IV diazepam was administered. I already ordered Librium and Ativan. The patient had been receiving oral Ativan for CIWA scores. The patient was still having some nausea vomiting. She did receive dose of Phenergan. She was requesting doses of Benadryl to treat her nausea at the time of my evaluation. I did give permission for nursing staff to place an IV in the patient's foot given limited IV access. And an order was placed for a midline catheter. Given that she does report received Phenergan I held off on this. The patient only had about a 32nd postictal. After the seizure-like activity in the IMU. The patient had been loaded on Keppra in the ER as well as Depakote. Neurology had been consulted. Around 550 in the morning nursing staff noticed ectopy in the patient's telemetry went in to evaluate the patient. The patient was actively seizing. I gave an order for 4 mg of IV Ativan. I got to patient's bedside as the 4 mg of Ativan was being administered. The patient continued disease a 2nd dose of 4 mg of Ativan was administered. At that time the patient had been seizing for 8-10 minutes. The decision was made to transfer the patient to the ICU and intubate. Patient received IV push Versed 6 mg The patient received propofol RSI. The patient initially received 2 milligrams/kilogram dose but was still continuing to have seizures. An additional 1 milligram/kilogram dose was administered and as the 2nd dose was completed the patient briefly stopped seizing. The patient was subsequently intubated without complication. Given poor vascular access central line was also placed. While seizing the patient was having bouts of emesis in car was used for suctioning. At the time of intubation there was no evidence of overt aspiration into the posterior oropharynx. Patient self extubated on 03/03 and had another seizure overnight and was reintubated patient self extubated on 03/03 and was reintubated, now of the off the ventilator, patient with recurrent seizure and on three medications, Keppra, phenytoin and valporic acid, again last night patient had another seizure and was seen by associate sales manager patient was total of 5mg IV Ativan, this morning patient was quite somnolent, but appear to be awake stats feeling tired, discuss with Dr. Victoria, neurologist repeated dilantin levels are 6 and it was 8 yesterday, the neurologist increase Dilantin to 200mg IV q8 from 150mg q8, will monitor and recheck Dilantin in the am, will continue to monitor. Review of Systems Review of Systems: All systems reviewed & are unremarkable except as noted in HPI and below (HPI) Exam Narrative: Morbidly obese Patient is comfortable, NAD HEENT: eyes are clear and none icteric LUNGS:CTA HEART: RR S1S2 ABD: BS+, Soft and nontender Lower extremities: no edema SKIN: nonjaundiced Neuro: grossly intact. Somewhat confused Objective Data Vital Signs Vital Signs: Vital Signs - 24 hr 03/05/25 16:00 03/05/25 16:00 03/05/25 18:00 Temperature 36.8 C Pulse Rate 85 84 91 Respiratory Rate 21 H Blood Pressure 122/73 Pulse Oximetry 95 Oxygen Delivery Fraction of Inspired Oxygen 03/05/25 19:47 03/05/25 20:00 03/05/25 20:00 Temperature 36.7 C Pulse Rate 82 85 Respiratory Rate 17 Blood Pressure 142/80 H Pulse Oximetry 100 Oxygen Delivery Room Air Fraction of Inspired Oxygen 03/05/25 22:00 03/05/25 23:53 03/06/25 00:00 Temperature 36.6 C Pulse Rate 80 75 Respiratory Rate 14 Blood Pressure 118/83 Pulse Oximetry 100 Oxygen Delivery Room Air Fraction of Inspired Oxygen 03/06/25 00:00 03/06/25 02:00 03/06/25 03:13 Temperature 36.6 C Pulse Rate 72 79 79 Respiratory Rate 13 Blood Pressure 127/73 Pulse Oximetry 100 Oxygen Delivery Fraction of Inspired Oxygen 03/06/25 04:00 03/06/25 04:00 03/06/25 04:00 Temperature Pulse Rate 82 87 Respiratory Rate 12 Blood Pressure 106/58 L Pulse Oximetry 93 Oxygen Delivery Room Air Fraction of Inspired Oxygen 03/06/25 06:00 03/06/25 08:00 03/06/25 08:00 Temperature Pulse Rate 72 87 87 Respiratory Rate 16 Blood Pressure Pulse Oximetry 100 Oxygen Delivery Room Air Fraction of Inspired Oxygen 03/06/25 08:00 03/06/25 10:00 03/06/25 12:00 Temperature 36.9 C Pulse Rate 87 82 82 Respiratory Rate 16 16 Blood Pressure 117/59 L Pulse Oximetry 100 100 Oxygen Delivery Room Air Fraction of Inspired Oxygen 03/06/25 12:00 03/06/25 12:00 Temperature 36.6 C Pulse Rate 82 90 Respiratory Rate 12 Blood Pressure 126/80 Pulse Oximetry Oxygen Delivery Fraction of Inspired Oxygen Intake/Output Intake/Output: Intake & Output 03/03/25 03/04/25 03/05/25 03/06/25 23:59 23:59 23:59 23:59 Intake Total 2413.5 3022.8 708 490 Output Total 8950 5175 1375 Balance -1336.5 -2152.2 -667 490 Meds/Results Medications: Active Medications Generic Name Dose Route Start Last Admin Trade Name Freq PRN Reason Stop Dose Admin Acetaminophen 1,000 mg 03/05/25 00:08 03/05/25 21:01 Acetaminophen 500 Mg Tablet PO 1,000 mg Q6H PRN Administration Mild Pain (1-3) or Fever Alteplase, Recombinant 2 mg 03/01/25 18:41 03/01/25 19:01 Alteplase 2 Mg Vial (Cathflo) IV PUSH 2 mg ONCE PRN Administration Line Occlusion Apixaban 5 mg 02/25/25 10:25 03/06/25 11:52 Apixaban 5 Mg Tablet PO 5 mg Q12HR SANA Administration Artificial Tears 1 drop 03/05/25 18:48 03/05/25 19:44 Artificial Tears Ophth Soln 15 Ml Bottle EACH EYE 1 drop QID PRN Administration Dry Eye(s) Clonazepam 0.5 mg 03/05/25 09:19 Clonazepam (*Crx) 0.5 Mg Tablet PO PRN PRN panic attack(s) Folic Acid 1 mg 02/25/25 09:00 03/06/25 09:25 Folic Acid 1 Mg/0.2 Ml Inj IV PUSH 1 mg QAM SANA Administration Valproate Sodium 1,250 mg/ 62.5 mls @ 50 mls/hr 03/06/25 18:00 Dextrose IVPB Q6HR SANA Levetiracetam 1,250 mg/ Sodium 112.5 mls @ 450 mls/hr 03/06/25 18:00 Chloride IVPB Q6H SANA Levothyroxine Sodium 50 mcg 03/06/25 06:30 03/06/25 05:54 Levothyroxine Sodium 50 Mcg Tablet PO Not Given DAILY@0630 SANA Loperamide HCl 2 mg 03/05/25 18:48 Loperamide Hcl 2 Mg Capsule PO PRN PRN Diarrhea Lorazepam 2 mg 02/26/25 12:32 03/06/25 13:06 Lorazepam Inj (*Crx) 2 Mg/Ml Vial IV PUSH 2 mg Q2H PRN Administration seizures Melatonin 5 mg 03/05/25 19:19 Melatonin 5 Mg Tablet PO HS PRN sleep Multivitamins/Calcium 1 tablet 02/25/25 09:00 03/06/25 11:52 Therapeutic Multivitamins/Minerals Tab (*Bkc) PO 1 tablet DAILY SANA Administration Ondansetron HCl 4 mg 02/24/25 21:49 03/06/25 07:51 Ondansetron Inj 4 Mg/2 Ml Vial IV PUSH 4 mg Q6H PRN Administration Nausea And Vomiting Pantoprazole Sodium 40 mg 02/25/25 09:00 03/06/25 09:25 Pantoprazole Sodium Iv 40 Mg Vial IV PUSH 40 mg Q12HR SANA Administration Phenytoin Sodium 200 mg 03/06/25 14:00 03/06/25 13:29 Phenytoin Sodium Inj 100 Mg/2 Ml Vial (*Bkc) IV PUSH 200 mg Q8HR SANA Administration Polyethylene Glycol 17 gm 02/28/25 09:00 03/06/25 09:19 Polyethylene Glycol 3350 17 Gm Powd.Pack PO Not Given QAM SANA Quetiapine Fumarate 50 mg 03/05/25 21:00 03/05/25 21:01 Quetiapine Fumarate 25 Mg Tablet PO 50 mg HS SANA Administration Senna/Docusate Sodium 1 tab 03/01/25 21:00 03/05/25 19:26 Senna/Docusate Sodium Tablet PO Not Given HS SANA Sertraline HCl 100 mg 03/06/25 09:00 03/06/25 11:52 Sertraline Hcl 50 Mg Tablet PO 100 mg DAILY SANA Administration Sodium Chloride 10 ml 02/26/25 22:00 03/06/25 13:30 Central Line Flush IV PUSH 10 ml Q8HR SANA Administration Sodium Chloride 20 ml 02/26/25 16:48 Central Line Flush IV PUSH PRN PRN after blood draws Thiamine HCl 100 mg 02/25/25 09:00 03/06/25 09:25 Thiamine Hcl 200 Mg/2 Ml Vial IV PUSH 100 mg QAM SANA Administration Radiology Results: ITS Impressions Head CT 02/28/25 14:57 IMPRESSION: 1. Persistent small left frontal scalp hematoma. No fracture or acute intracranial process. Chest X-Ray 03/04/25 06:34 Impression: 1: Bilateral predominantly basilar airspace disease which is not significantly changed dating back to 03/01/2025. Differential diagnosis includes edema, pneumonia and/or atelectasis. Abdomen/Pelvis CT 03/05/25 11:06 IMPRESSION: Postoperative change within the upper abdomen. Air-fluid levels identified within the colon, without mural thickening or surrounding inflammatory change. No significant colonic dilatation is appreciated. Small left-sided pleural effusion with adjacent consolidation, consistent with patient's history. Interval development of hepatomegaly since previous examination performed in 2019. Labs Labs: Laboratory Results - last 24 hr 03/06/25 03/06/25 04:43 09:58 WBC 4.7 RBC 3.69 L Hgb 9.6 L Hct 31.0 L MCV 84.0 MCH 26.0 MCHC 31.0 L RDW 17.6 H Plt Count 226 MPV 9.0 Sodium 139 Potassium 3.8 Chloride 108 H Carbon Dioxide 23 Anion Gap 8 BUN 11 D Creatinine 0.51 L Estim Creat Clear Calc 184 Estimated GFR > 60 Glucose 94 Calcium 8.8 Phosphorus 3.9 Magnesium 2.1 Total Bilirubin 0.1 L AST 26 ALT 14 Alkaline Phosphatase 82 Total Protein 6.6 Albumin 3.6 Phenytoin 6 L Quality VTE Prophylaxis VTE prophylaxis: pharmacologic ordered
[2025-03-06] MEDS: LEVETIRACETAM IVPB ×2 (18:11→23:53)
[2025-03-06] MEDS: VALPROATE SODIUM IVPB ×2 (18:11→23:53)
[2025-03-06] MEDS: WATER IVPB ×2 (18:11→23:53)
[2025-03-06] MEDS: DEXTROSE 5% IVPB ×2 (18:11→23:53)
--- NOTE | 2025-03-06 19:07 | WPDNEUROPN ---
Progress Note: A&P Assessment and Plan (1) Seizure disorder: Code(s): G40.909 - Epilepsy, unspecified, not intractable, without status epilepticus Status: Chronic (2) Head injury: Qualifiers: Encounter type: subsequent encounter Qualified Code(s): S09.90XD - Unspecified injury of head, subsequent encounter Code(s): S09.90XA - Unspecified injury of head, initial encounter Status: Acute (3) Alcohol withdrawal seizure: Qualifiers: Complication of substance-induced condition: uncomplicated Qualified Code(s): F10.930 - Alcohol use, unspecified with withdrawal, uncomplicated; R56.9 - Unspecified convulsions Code(s): F10.939 - Alcohol use, unspecified with withdrawal, unspecified; R56.9 - Unspecified convulsions Status: Acute (4) Illicit drug use: Code(s): F19.90 - Other psychoactive substance use, unspecified, uncomplicated Status: Acute Plan I reviewed the medications and suggested an extra dose of Dilantin 300 mg in the afternoon and in addition to the Depakote 500 mg. Increase IV increase the doses of Keppra to 1250 mg 4 times a day and Depakote also to 1250 mg 4 times a day and Dilantin 200 mg 3 times a day. Subjective Date/time seen: 03/06/25 19:07 Interval history: Patient is 29 years old with history of seizure disorder since age of [age]. She was found by the police in the car and subsequently she was intubated and has had a seizure last night twice. The nursing staff called me around 4:00 a.m. in the morning advised to give additional dose of Dilantin and a valproic acid since he is already on a fairly high dose of these medications. Further adjustments were deemed necessary. A repeat Dilantin level was 6.0. Patient has history of gastric bypass surgery and. She has had subsequent seizures in the afternoon also. Patient has now been extubated and is able to talk and seems to be fairly alert and oriented and in fact when I came in she was playing with a phone. There is history of drug abuse. She also drinks alcohol heavily. Review of Systems Review of Systems: All systems reviewed & are unremarkable except as noted in HPI and below Exam Narrative: patient is fully conscious alert and oriented to self time place and person. No aphasia or dysarthria. There is however mild flattening of the right nasolabial fold. Rapid alternating movement in the right hand slightly decreased compared to the left side. However no significant finding in the lower limbs. Deep tendon reflexes did not show any significant abnormality. No involuntary movements seen at this time. Objective Data Vital Signs Vital Signs: Vital Signs - 24 hr 03/05/25 19:47 03/05/25 20:00 03/05/25 20:00 Temperature 98.1 F Pulse Rate 82 85 Respiratory Rate 17 Blood Pressure 142/80 H Pulse Oximetry 100 Oxygen Delivery Room Air Fraction of Inspired Oxygen 03/05/25 22:00 03/05/25 23:53 03/06/25 00:00 Temperature 98 F Pulse Rate 80 75 Respiratory Rate 14 Blood Pressure 118/83 Pulse Oximetry 100 Oxygen Delivery Room Air Fraction of Inspired Oxygen 03/06/25 00:00 03/06/25 02:00 03/06/25 03:13 Temperature 97.9 F Pulse Rate 72 79 79 Respiratory Rate 13 Blood Pressure 127/73 Pulse Oximetry 100 Oxygen Delivery Fraction of Inspired Oxygen 03/06/25 04:00 03/06/25 04:00 03/06/25 04:00 Temperature Pulse Rate 82 87 Respiratory Rate 12 Blood Pressure 106/58 L Pulse Oximetry 93 Oxygen Delivery Room Air Fraction of Inspired Oxygen 03/06/25 06:00 03/06/25 08:00 03/06/25 08:00 Temperature Pulse Rate 72 87 87 Respiratory Rate 16 Blood Pressure Pulse Oximetry 100 Oxygen Delivery Room Air Fraction of Inspired Oxygen 03/06/25 08:00 03/06/25 10:00 03/06/25 12:00 Temperature 98.4 F Pulse Rate 87 82 82 Respiratory Rate 16 16 Blood Pressure 117/59 L Pulse Oximetry 100 100 Oxygen Delivery Room Air Fraction of Inspired Oxygen 03/06/25 12:00 03/06/25 12:00 03/06/25 14:00 Temperature 97.9 F Pulse Rate 82 90 69 Respiratory Rate 12 Blood Pressure 126/80 Pulse Oximetry Oxygen Delivery Fraction of Inspired Oxygen 03/06/25 16:00 03/06/25 16:00 03/06/25 16:00 Temperature 97.8 F Pulse Rate 71 71 71 Respiratory Rate 12 12 Blood Pressure 121/68 Pulse Oximetry 100 100 Oxygen Delivery Room Air Fraction of Inspired Oxygen 03/06/25 18:00 Temperature Pulse Rate 90 Respiratory Rate Blood Pressure Pulse Oximetry Oxygen Delivery Fraction of Inspired Oxygen Intake/Output Intake/Output: Intake & Output 03/03/25 03/04/25 03/05/25 03/06/25 23:59 23:59 23:59 23:59 Intake Total 2413.5 3022.8 708 930 Output Total 3750 5175 1375 200 Balance -1336.5 -2152.2 -667 730 Meds/Results Medications: Active Medications Generic Name Dose Route Start Last Admin Trade Name Freq PRN Reason Stop Dose Admin Acetaminophen 1,000 mg 03/05/25 00:08 03/05/25 21:01 Acetaminophen 500 Mg Tablet PO 1,000 mg Q6H PRN Administration Mild Pain (1-3) or Fever Alteplase, Recombinant 2 mg 03/01/25 18:41 03/01/25 19:01 Alteplase 2 Mg Vial (Cathflo) IV PUSH 2 mg ONCE PRN Administration Line Occlusion Apixaban 5 mg 02/25/25 10:25 03/06/25 11:52 Apixaban 5 Mg Tablet PO 5 mg Q12HR SANA Administration Artificial Tears 1 drop 03/05/25 18:48 03/05/25 19:44 Artificial Tears Ophth Soln 15 Ml Bottle EACH EYE 1 drop QID PRN Administration Dry Eye(s) Clonazepam 0.5 mg 03/05/25 09:19 Clonazepam (*Crx) 0.5 Mg Tablet PO PRN PRN panic attack(s) Folic Acid 1 mg 02/25/25 09:00 03/06/25 09:25 Folic Acid 1 Mg/0.2 Ml Inj IV PUSH 1 mg QAM SANA Administration Valproate Sodium 1,250 mg/ 62.5 mls @ 50 mls/hr 03/06/25 18:00 03/06/25 18:11 Dextrose IVPB 50 mls/hr Q6HR SANA Administration Levetiracetam 1,250 mg/ Sodium 112.5 mls @ 450 mls/hr 03/06/25 18:00 03/06/25 18:11 Chloride IVPB 450 mls/hr Q6H SANA Administration Levothyroxine Sodium 50 mcg 03/06/25 06:30 03/06/25 05:54 Levothyroxine Sodium 50 Mcg Tablet PO Not Given DAILY@0630 SANA Loperamide HCl 2 mg 03/05/25 18:48 Loperamide Hcl 2 Mg Capsule PO PRN PRN Diarrhea Lorazepam 2 mg 02/26/25 12:32 03/06/25 13:06 Lorazepam Inj (*Crx) 2 Mg/Ml Vial IV PUSH 2 mg Q2H PRN Administration seizures Melatonin 5 mg 03/05/25 19:19 Melatonin 5 Mg Tablet PO HS PRN sleep Multivitamins/Calcium 1 tablet 02/25/25 09:00 03/06/25 11:52 Therapeutic Multivitamins/Minerals Tab (*Bkc) PO 1 tablet DAILY SANA Administration Ondansetron HCl 4 mg 02/24/25 21:49 03/06/25 07:51 Ondansetron Inj 4 Mg/2 Ml Vial IV PUSH 4 mg Q6H PRN Administration Nausea And Vomiting Pantoprazole Sodium 40 mg 02/25/25 09:00 03/06/25 09:25 Pantoprazole Sodium Iv 40 Mg Vial IV PUSH 40 mg Q12HR SANA Administration Phenytoin Sodium 200 mg 03/06/25 14:00 03/06/25 13:29 Phenytoin Sodium Inj 100 Mg/2 Ml Vial (*Bkc) IV PUSH 200 mg Q8HR SANA Administration Polyethylene Glycol 17 gm 02/28/25 09:00 03/06/25 09:19 Polyethylene Glycol 3350 17 Gm Powd.Pack PO Not Given QAM SANA Quetiapine Fumarate 50 mg 03/05/25 21:00 03/05/25 21:01 Quetiapine Fumarate 25 Mg Tablet PO 50 mg HS SANA Administration Senna/Docusate Sodium 1 tab 03/01/25 21:00 03/05/25 19:26 Senna/Docusate Sodium Tablet PO Not Given HS SANA Sertraline HCl 100 mg 03/06/25 09:00 03/06/25 11:52 Sertraline Hcl 50 Mg Tablet PO 100 mg DAILY SANA Administration Sodium Chloride 10 ml 02/26/25 22:00 03/06/25 13:30 Central Line Flush IV PUSH 10 ml Q8HR SANA Administration Sodium Chloride 20 ml 02/26/25 16:48 Central Line Flush IV PUSH PRN PRN after blood draws Thiamine HCl 100 mg 02/25/25 09:00 03/06/25 09:25 Thiamine Hcl 200 Mg/2 Ml Vial IV PUSH 100 mg QAM SANA Administration Radiology Results: ITS Impressions Head CT 02/28/25 14:57 IMPRESSION: 1. Persistent small left frontal scalp hematoma. No fracture or acute intracranial process. Chest X-Ray 03/04/25 06:34 Impression: 1: Bilateral predominantly basilar airspace disease which is not significantly changed dating back to 03/01/2025. Differential diagnosis includes edema, pneumonia and/or atelectasis. Abdomen/Pelvis CT 03/05/25 11:06 IMPRESSION: Postoperative change within the upper abdomen. Air-fluid levels identified within the colon, without mural thickening or surrounding inflammatory change. No significant colonic dilatation is appreciated. Small left-sided pleural effusion with adjacent consolidation, consistent with patient's history. Interval development of hepatomegaly since previous examination performed in 2019. Labs Labs: Laboratory Results - last 24 hr 03/06/25 03/06/25 04:43 09:58 WBC 4.7 RBC 3.69 L Hgb 9.6 L Hct 31.0 L MCV 84.0 MCH 26.0 MCHC 31.0 L RDW 17.6 H Plt Count 226 MPV 9.0 Sodium 139 Potassium 3.8 Chloride 108 H Carbon Dioxide 23 Anion Gap 8 BUN 11 D Creatinine 0.51 L Estim Creat Clear Calc 184 Estimated GFR > 60 Glucose 94 Calcium 8.8 Phosphorus 3.9 Magnesium 2.1 Total Bilirubin 0.1 L AST 26 ALT 14 Alkaline Phosphatase 82 Total Protein 6.6 Albumin 3.6 Phenytoin 6 L
--- NOTE | 2025-03-06 20:56 | PC.NURSE ---
2044 Dr Victoria called and made aware that pt was found to be seizing at 2031, has received 4mg Ativan and will be receiving another 3mg. Dr Victoria previously ordered and extra 400mg Dilantin. Dr Victoria states this is her third seizure in 24hrs and she is a difficult case ; needs to be transferred for increased monitoring. If she continue to seize he recommends propofol and/or versed and being intubated. Dr Victoria mentions he ordered MRI-no one in house to do at this time-and he states it can wait till morning.
[2025-03-06] MEDS: ACETAMINOPHEN 500 MG TABLET 1000 MG PO (21:29)
[2025-03-06] MEDS: ETOMIDATE 20 MG/10 ML AMPUL IV PUSH (22:59)
[2025-03-06] MEDS: SUCCINYLCHOLINE CHLORIDE 20 MG/ML 10 ML VIAL 100 MG IV PUSH (23:00)
[2025-03-06] MEDS: PROPOFOL IV EMULSION 100 ML 39.06 MG IV CONT (23:08)
[2025-03-06] MEDS: MIDAZOLAM HCL (*CRX) 2 MG/2 ML VIAL 5 MG IV PUSH (23:12)
[2025-03-06] MEDS: MIDAZOLAM 100MG/NS 100ML(*CRX) 100 MG/100 ML BAG IV CONT (23:14)
--- NOTE | 2025-03-06 23:35 | ED.PROCEDURE ---
Procedures Intubation Intubation Date: 03/06/25 Consent: implied Sedative: etomidate Mg given: 20 Paralytic: succinylcholine Mg given: 100 Laryngoscope: Vicente ET tube size: cuffed Tube secured depth (cm): 22 Tube secured location: lips Tube placement confirmation: visualized tube passing through cords, equal breath sounds bilaterally, no breath sounds over epigastrium and confirmation by capnometry Patient tolerated procedure: well Intubation complications: none
--- NOTE | 2025-03-06 23:42 | P.PNCROSS_ITS ---
Event Note Event Note Event Note: Patient had another seizure at 8:32 p.m.. Received 7 mg of Ativan total. Seiz ure broke, postictal thereafter. Reported by nursing patient previously had a seizure around noon and again at 5:00 p.m. today. Neurology was contacted and seizure medications adjusted. Patient had another seizure at 10:44 p.m. given Ativan 6 mg with decrease in her clonus. But she did have temporary desaturation to 88% on room air. Intubated without difficulty by ER physician. She received etomidate 20 mg and succinylcholine 100 mg. She was clamping down on the tube despite being on max propofol also she received Versed 5 mg IV push x1. Then placed on Versed 5 mg GTT. Vent settings: 400 TV, 15 RR, 5 peep, 30% FiO2. Clear lung sounds, regular rate and rhythm, pupils equal round reactive to light, no lower extremity edema. Contacted natural resources professor. Will repeat a ABG in 1 hour.
[2025-03-07] VITALS (24 sets, daily range): BP systolic 100–112; BP diastolic 58–73; PULSE 37–94; RESP 15–18; TEMP 36.1–36.9; O2SAT 95–98
[2025-03-07 00:20] LABS: Alveolar/Arterial O2 Gradient 97.4 mmHg; Carboxyhemoglobin 0.2 % THb (0-2.0); Fractional Inspired Oxygen 35 %; HCO3 ABG 25.4 mEq/l (22.0-26.0); Methemoglobin ABG 0.0 %THb (0-1.5); Oxygen Content ABG 14.5 %vol (16.0-22.0); Oxygen Saturation ABG 97.6 % (95.0-100.0); PCO2 ABG 43.4 mmHg (35.0-45.0); PO2 ABG 101.7 mmHg (80.0-100.0); PO2 FiO2 Ratio Arterial Blood 2.91 %; Reduced Hemoglobin 2.8 %THb (0-5.0)
[2025-03-07 00:21] LABS: Modified Allen's Test Pass; Site Drawn RIGHT RADIAL
[2025-03-07 00:22] LABS: Arterial Blood Gas Ventilator rate 15 /MIN
[2025-03-07 00:23] LABS: Arterial Blood Gas Tidal Volume 400 ml
--- NOTE | 2025-03-07 00:58 | PC.NURSE ---
Pt had a second witnessed seizure at [address]244 that lasted [address] South notified and at bedside. Pt received a total of Ativan 6mg IVP during the duration of seizure. Pt O2 sat dropped into the 80s, but was 92% on room air when staff placed 15L NRB on pt. Decision was made by Dr. South and ERP Dr. Peters to intubate pt. See MAR for further orders. Pt's father, Harry ([phone]) notified of intubation and plans to transfer pt to higher level of care as discussed by Drs. South and Cruz. Harry agreeable to pt transfer.
[2025-03-07] MEDS: PROPOFOL IV EMULSION 100 ML 27.34 MG IV CONT ×2 (01:15→04:57)
[2025-03-07 05:23] LABS: Hematocrit 30.6 % (37.0-47.0); Hemoglobin 9.4 g/dL (12.0-15.0); Mean Corpuscular HGB Conc 30.7 g/dl (32-36); Mean Corpuscular Hemoglobin 25.9 pg (26-34); Mean Corpuscular Volume 84.3 fl (80-100); Platelet Count Result 219 k/mm3 (150-375); Red Blood Count 3.63 M/mm3 (4.2-5.4); White Blood Count 3.6 K/mm3 (4.5-10.0)
[2025-03-07 05:45] LABS: Alanine Aminotransferase 14 U/L (6-35); Albumin Level 3.5 g/dL (3.5-5.1); Alkaline Phosphatase 79 U/L (38-126); Anion Gap 7 mmol/L (4-12); Aspartate Amino Transferase 25 U/L (14-36); Bilirubin,Total 0.1 mg/dL (0.2-1.3); Blood Urea Nitrogen 9 mg/dL (7-17); Calcium 8.7 mg/dL (8.4-10.2); Carbon Dioxide 24 mmol/L (22-30); Chloride 107 mmol/L (98-107); Estimated CRCL calculation 205 ml/min; Estimated Glomerular Filt Rate > 60; Glucose 84 mg/dL (65-110); Magnesium 2.0 mg/dL (1.6-2.3); Potassium 3.6 mmol/L (3.4-5.0); Sodium 138 mmol/L (137-145); Total Protein 6.3 g/dL (6.3-8.2)
[2025-03-07] MEDS: PHENYTOIN SODIUM INJ 100 MG/2 ML VIAL (*BKC) 200 MG IV PUSH ×2 (06:14→13:20)
[2025-03-07] MEDS: CENTRAL LINE FLUSH 10 ML IV PUSH ×2 (06:14→13:21)
[2025-03-07] MEDS: SODIUM CHLORIDE 0.9% IVPB ×2 (06:14→13:20)
[2025-03-07] MEDS: WATER IVPB ×2 (06:14→13:20)
[2025-03-07] MEDS: LEVETIRACETAM IVPB ×2 (06:14→13:20)
[2025-03-07] MEDS: VALPROATE SODIUM IVPB ×2 (06:14→13:20)
[2025-03-07] MEDS: DEXTROSE 5% IVPB ×2 (06:14→13:20)
[2025-03-07] MEDS: LEVOTHYROXINE SODIUM 50 MCG TABLET PO (06:15)
[2025-03-07] MEDS: THERAPEUTIC MULTIVITAMINS/MINERALS TAB (*BKC) 1 TABLET PO (08:17)
[2025-03-07] MEDS: POTASSIUM CHLORIDE 20 MEQ PACKET (FOR LIQUID) 40 MEQ FEED TUBE (08:17)
[2025-03-07] MEDS: APIXABAN 5 MG TABLET PO (08:17)
[2025-03-07] MEDS: PANTOPRAZOLE SODIUM IV 40 MG VIAL IV PUSH (08:18)
[2025-03-07] MEDS: THIAMINE HCL 200 MG/2 ML VIAL 100 MG IV PUSH (08:18)
[2025-03-07] MEDS: FOLIC ACID 1 MG/0.2 ML INJ IV PUSH (08:18)
--- NOTE | 2025-03-07 08:58 | P.PNINT_ITS ---
Progress Note: A&P Assessment and Plan (1) Seizure disorder: Code(s): G40.909 - Epilepsy, unspecified, not intractable, without status epilepticus Status: Chronic Assessment and Plan: 02/24: Patient was found by police having seizures in her car, upon EMS arrival patient received Versed IV, she also received multiple doses of Ativan in the ER. Initially she was admitted to IMU a she had seizure activity for approximately 24 minute, patient was intubated as she was given multiple doses of IV Versed, IV Ativan,, diazepam and started on propofol. Neurology was consulted Patient was also given 1 dose of phenobarbital 260 mg IV x1, if the seizures are associated with alcohol withdrawal, given long half life of phenobarbital initial 03/02: Early hours patient had seizures x2 lasting 12 minutes and 20 minutes, patient self extubated and was reintubated for airway protection. 03/03: Discussed extensively with Neurology, will obtain EEG stat, also obtain valproic acid and Dilantin levels, if they are subtherapeutic -02/26: EEG: this is a normal EEG obtained during awake and Drowsy states 03/04 EEG Abnormal record due to the presence of bihemispheric theta and delta a ctivity no there is no evidence of any paroxysmal spikes spike and slow wave discharges throughout the tracing. Clinical correlation recommended these abnormalities could be suggestive of underlying organic a metabolic encephalopathy in addition to the possibility of postictal state clinical correlation recommended. 03/04 Patient was extubated 03/06 recurrent seizures requiring re-intubation Patient currently on Keppra to 1000mg q.6 hours, valproic acid to 1250 mg Q 8 hours, phenytoin 225 mg IV q.8 hours (2) Acute hypoxic respiratory failure: Code(s): J96.01 - Acute respiratory failure with hypoxia Status: Acute Assessment and Plan: 02/25 Patient was intubated for airway protection secondary to prolonged seizure activity 03/02: patient self extubated and was reintubated for airway protection. 03/04 extubated after a successful weaning trial. 03/06 reintubated after multiple episodes of seizures Chest x-ray ABG med settings reviewed (3) Alcoholism: Code(s): F10.20 - Alcohol dependence, uncomplicated Status: Acute Assessment and Plan: Patient admitted to drinking 750 mL of hard liquor every day. Now out of window of withdrawal Currently on propofol Continue folic acid and thiamine (4) Pulmonary embolism: Onset Date: 2023 Code(s): I26.99 - Other pulmonary embolism without acute cor pulmonale Status: Acute Assessment and Plan: Patient has a history of pulmonary embolism in 2023 -on Eliquis at home, will continue (5) Anxiety: Code(s): F41.9 - Anxiety disorder, unspecified Status: Chronic Assessment and Plan: Hold sertraline (6) Depression: Qualifiers: Depression Type: unspecified Qualified Code(s): F32.9 - Major depressive disorder, single episode, unspecified Code(s): F32.9 - Major depressive disorder, single episode, unspecified Status: Chronic Assessment and Plan: Hold sertraline (7) Illicit drug use: Code(s): F19.90 - Other psychoactive substance use, unspecified, uncomplicated Status: Acute Assessment and Plan: Patient takes synthetic heroin, opiates, cannabinoids in the past Denies any recent use apart from vaping (8) Urinary tract infection: Code(s): N39.0 - Urinary tract infection, site not specified Status: Acute Assessment and Plan: Patient UA was abnormal and suggestive UTI. Patient was started on Rocephin. Cultures came back with ESBL E coli which is sensitive only to carbapenems or aminoglycoside. Due to patient's difficult to control seizures carbapenems will not be ordered.. Patient was given 1 dose of gentamicin IV with IV fluid (9) Abdominal pain: Code(s): R10.9 - Unspecified abdominal pain Status: Inactive Assessment and Plan: Lipase on presentation and most recent LFTs were normal Negative CT abdomen pelvis Repeat lipase was negative Plan DVT prophylaxis: Eliquis Stress ulcer prophylaxis: Protonix Nutrition: Start tube feeds Code Status: Full code Discussed with neurology they recommend transfer to tertiary facility for continues EEG and MRI. Total Critical Care Time - 35 minutes Due to a high probability of clinically significant, life threatening deterioration, the patient required my highest level of preparedness to intervene emergently and I personally spent this critical care time directly and personally managing the patient. This critical care time included obtaining a history; examining the patient; pulse oximetry; ordering and review of studies; arranging urgent treatment with development of a management plan; evaluation of patient's response to treatment; frequent reassessment; and discussions with other providers. It was exclusive of separately billable procedures and treating other patients and teaching time. Please see Assessment and Plan section and the rest of the note for further information on patient assessment and treatment Subjective Date/time seen: 03/07/25 Overnight events reviewed patient had multiple seizures again and received multiple dose of Ativan. Patient was intubated for airway protection. Was started on propofol and Versed infusion. This morning she is sedated intubated and on mechanical ventilation. Afebrile. On 30 mics of propofol. Versed drip is off. NPO Interval history: Reason for consult: Seizures, intubated for airway protection Review of Systems Review of Systems: ROS unobtainable: Yes unobtainable due to endotracheal tube, unobtainable due to medical condition and unobtainable due to mental status Exam Narrative: General: Sedated intubated and in no acute distress HEENT:? Pupils equal and reactive, sclera is clear, Neck:? Supple Respiratory:? Clear to auscultation bilaterally, no wheezing, adequate air entry breath sounds are decreased at bases Cardiac:? S1-S2 is normal, reviewed return room Abdomen:? Soft, nontender, nondistended, hypoactive bowel sounds, obese Extremities:? Trace edema bilaterally, palpable pedal pulses Neuro:? Sedated intubated PERRL Skin:? No lesions noted Psych:? Unable to assess at this time Objective Data Vital Signs Vital Signs: Vital Signs - 24 hr 03/06/25 10:00 03/06/25 12:00 03/06/25 12:00 Temperature Pulse Rate 82 82 82 Respiratory Rate 16 Blood Pressure Pulse Oximetry 100 Oxygen Delivery Room Air Fraction of Inspired Oxygen 03/06/25 12:00 03/06/25 14:00 03/06/25 16:00 Temperature 36.6 C Pulse Rate 90 69 71 Respiratory Rate 12 12 Blood Pressure 126/80 Pulse Oximetry 100 Oxygen Delivery Room Air Fraction of Inspired Oxygen 03/06/25 16:00 03/06/25 16:00 03/06/25 18:00 Temperature 36.6 C Pulse Rate 71 71 90 Respiratory Rate 12 Blood Pressure 121/68 Pulse Oximetry 100 Oxygen Delivery Fraction of Inspired Oxygen 03/06/25 19:28 03/06/25 20:00 03/06/25 20:00 Temperature 36.4 C L Pulse Rate 81 80 Respiratory Rate 14 Blood Pressure 115/79 Pulse Oximetry 97 Oxygen Delivery Room Air Fraction of Inspired Oxygen 03/06/25 20:56 03/06/25 21:43 03/06/25 22:00 Temperature Pulse Rate 92 101 H 81 Respiratory Rate 16 20 Blood Pressure 124/66 Pulse Oximetry 100 99 Oxygen Delivery Room Air Fraction of Inspired Oxygen 21 03/06/25 23:08 03/06/25 23:14 03/06/25 23:21 Temperature Pulse Rate 100 88 93 Respiratory Rate 23 H 19 22 H Blood Pressure 108/64 Pulse Oximetry 96 Oxygen Delivery Fraction of Inspired Oxygen 03/06/25 23:22 03/06/25 23:23 03/06/25 23:46 Temperature Pulse Rate 88 82 Respiratory Rate 15 Blood Pressure Pulse Oximetry 95 Oxygen Delivery Mechanical Ventilation Fraction of Inspired Oxygen 35 35 03/07/25 00:00 03/07/25 00:00 03/07/25 00:00 Temperature 36.6 C Pulse Rate 81 82 79 Respiratory Rate 15 15 Blood Pressure 102/58 L Pulse Oximetry 96 Oxygen Delivery Fraction of Inspired Oxygen 03/07/25 00:00 03/07/25 00:00 03/07/25 00:17 Temperature Pulse Rate 82 Respiratory Rate 15 Blood Pressure Pulse Oximetry Oxygen Delivery Mechanical Ventilation Fraction of Inspired Oxygen 35 35 03/07/25 00:25 03/07/25 00:44 03/07/25 01:15 Temperature Pulse Rate 81 79 77 Respiratory Rate 15 15 Blood Pressure Pulse Oximetry 95 Oxygen Delivery Mechanical Ventilation Fraction of Inspired Oxygen 35 03/07/25 01:15 03/07/25 01:52 03/07/25 01:52 Temperature Pulse Rate 77 69 Respiratory Rate 15 Blood Pressure Pulse Oximetry 96 Oxygen Delivery Mechanical Ventilation Fraction of Inspired Oxygen 30 30 03/07/25 02:00 03/07/25 02:00 03/07/25 02:00 Temperature Pulse Rate 70 70 70 Respiratory Rate 15 15 Blood Pressure Pulse Oximetry Oxygen Delivery Fraction of Inspired Oxygen 03/07/25 02:00 03/07/25 02:41 03/07/25 04:00 Temperature 36.2 C L 36.1 C L Pulse Rate 71 69 68 Respiratory Rate 15 15 15 Blood Pressure 101/62 104/63 Pulse Oximetry 96 96 Oxygen Delivery Fraction of Inspired Oxygen 03/07/25 04:00 03/07/25 04:00 03/07/25 04:00 Temperature Pulse Rate 68 68 68 Respiratory Rate 15 18 Blood Pressure Pulse Oximetry Oxygen Delivery Fraction of Inspired Oxygen 03/07/25 04:00 03/07/25 04:00 03/07/25 04:38 Temperature Pulse Rate 64 Respiratory Rate Blood Pressure Pulse Oximetry 95 Oxygen Delivery Mechanical Ventilation Mechanical Ventilation Fraction of Inspired Oxygen 30 30 30 03/07/25 04:55 03/07/25 04:57 03/07/25 06:00 Temperature Pulse Rate 37 L 67 74 Respiratory Rate 15 15 Blood Pressure Pulse Oximetry Oxygen Delivery Fraction of Inspired Oxygen 03/07/25 06:00 03/07/25 06:00 03/07/25 06:00 Temperature 36.2 C L Pulse Rate 73 74 74 Respiratory Rate 15 15 15 Blood Pressure 104/66 Pulse Oximetry 97 Oxygen Delivery Fraction of Inspired Oxygen 03/07/25 06:48 03/07/25 08:44 Temperature Pulse Rate 75 86 Respiratory Rate 15 Blood Pressure Pulse Oximetry 98 Oxygen Delivery Mechanical Ventilation Fraction of Inspired Oxygen 30 Intake/Output Intake/Output: Intake & Output 03/04/25 03/05/25 03/06/25 03/07/25 23:59 23:59 23:59 23:59 Intake Total 3022.8 708 1396.7 599.0 Output Total 5175 1375 200 525 Balance -2152.2 -667 1196.7 74.0 Meds/Results Medications: Active Medications Generic Name Dose Route Start Last Admin Trade Name Freq PRN Reason Stop Dose Admin Acetaminophen 1,000 mg 03/05/25 00:08 03/06/25 21:29 Acetaminophen 500 Mg Tablet PO 1,000 mg Q6H PRN Administration Mild Pain (1-3) or Fever Alteplase, Recombinant 2 mg 03/01/25 18:41 03/01/25 19:01 Alteplase 2 Mg Vial (Cathflo) IV PUSH 2 mg ONCE PRN Administration Line Occlusion Apixaban 5 mg 02/25/25 10:25 03/07/25 08:17 Apixaban 5 Mg Tablet PO 5 mg Q12HR SANA Administration Artificial Tears 1 drop 03/05/25 18:48 03/05/25 19:44 Artificial Tears Ophth Soln 15 Ml Bottle EACH EYE 1 drop QID PRN Administration Dry Eye(s) Clonazepam 0.5 mg 03/05/25 09:19 Clonazepam (*Crx) 0.5 Mg Tablet PO PRN PRN panic attack(s) Folic Acid 1 mg 02/25/25 09:00 03/07/25 08:18 Folic Acid 1 Mg/0.2 Ml Inj IV PUSH 1 mg QAM SANA Administration Valproate Sodium 1,250 mg/ 62.5 mls @ 50 mls/hr 03/06/25 18:00 03/07/25 06:14 Dextrose IVPB 50 mls/hr Q6HR SANA Administration Levetiracetam 1,250 mg/ Sodium 112.5 mls @ 450 mls/hr 03/06/25 18:00 03/07/25 06:29 Chloride IVPB Infused Q6H SANA Infusion Propofol 100 mls @ 23.436 mls/hr 03/06/25 23:00 03/07/25 06:55 Diprivan IV CONT Not Given .Q4H17M SANA Protocol 30 MCG/KG/MIN Midazolam HCl 100 mg in 100 mls @ 0 mls/hr 03/06/25 23:10 03/07/25 06:00 Versed 100 Mg/Ns 100 Ml IV CONT 0 mg/hr .Q0M SANA 0 mls/hr Titration Protocol Lacosamide 100 mg 03/07/25 14:00 Lacosamide (*Crx) 100 Mg Tablet PO Q8HR SANA Levothyroxine Sodium 50 mcg 03/06/25 06:30 03/07/25 06:15 Levothyroxine Sodium 50 Mcg Tablet PO 50 mcg DAILY@0630 SANA Administration Loperamide HCl 2 mg 03/05/25 18:48 Loperamide Hcl 2 Mg Capsule PO PRN PRN Diarrhea Lorazepam 3 mg 03/06/25 20:53 03/06/25 22:49 Lorazepam Inj (*Crx) 2 Mg/Ml Vial IV PUSH 3 mg Q2H PRN Administration seizures Melatonin 5 mg 03/05/25 19:19 Melatonin 5 Mg Tablet PO HS PRN sleep Multivitamins/Calcium 1 tablet 02/25/25 09:00 03/07/25 08:17 Therapeutic Multivitamins/Minerals Tab (*Bkc) PO 1 tablet DAILY SANA Administration Ondansetron HCl 4 mg 02/24/25 21:49 03/06/25 07:51 Ondansetron Inj 4 Mg/2 Ml Vial IV PUSH 4 mg Q6H PRN Administration Nausea And Vomiting Pantoprazole Sodium 40 mg 02/25/25 09:00 03/07/25 08:18 Pantoprazole Sodium Iv 40 Mg Vial IV PUSH 40 mg Q12HR SANA Administration Phenytoin Sodium 225 mg 03/07/25 14:00 Phenytoin Sodium Inj 100 Mg/2 Ml Vial (*Bkc) IV PUSH Q8HR SANA Polyethylene Glycol 17 gm 02/28/25 09:00 03/07/25 08:18 Polyethylene Glycol 3350 17 Gm Powd.Pack PO 17 gm QAM SANA Administration Quetiapine Fumarate 50 mg 03/05/25 21:00 03/06/25 22:44 Quetiapine Fumarate 25 Mg Tablet PO Not Given HS SANA Senna/Docusate Sodium 1 tab 03/01/25 21:00 03/06/25 21:00 Senna/Docusate Sodium Tablet PO Not Given HS SANA Sertraline HCl 100 mg 03/06/25 09:00 03/06/25 11:52 Sertraline Hcl 50 Mg Tablet PO 100 mg DAILY SANA Administration Sodium Chloride 10 ml 02/26/25 22:00 03/07/25 06:14 Central Line Flush IV PUSH 10 ml Q8HR SANA Administration Sodium Chloride 20 ml 02/26/25 16:48 Central Line Flush IV PUSH PRN PRN after blood draws Thiamine HCl 100 mg 02/25/25 09:00 03/07/25 08:18 Thiamine Hcl 200 Mg/2 Ml Vial IV PUSH 100 mg QAM SANA Administration Radiology Results: ITS Impressions Head CT 02/28/25 14:57 IMPRESSION: 1. Persistent small left frontal scalp hematoma. No fracture or acute intracranial process. Abdomen/Pelvis CT 03/05/25 11:06 IMPRESSION: Postoperative change within the upper abdomen. Air-fluid levels identified within the colon, without mural thickening or surrounding inflammatory change. No significant colonic dilatation is appreciated. Small left-sided pleural effusion with adjacent consolidation, consistent with patient's history. Interval development of hepatomegaly since previous examination performed in 2019. Abdomen X-Ray 03/07/25 07:38 IMPRESSION: 1: OG tube tip in the stomach. Chest X-Ray 03/07/25 07:39 Impression: 1: Focal infiltrates left lung base which may represent atelectasis or pneumonia. Labs Labs: Laboratory Results - last 24 hr 03/06/25 03/06/25 03/06/25 09:58 19:31 19:33 WBC RBC Hgb Hct MCV MCH MCHC RDW Plt Count MPV Puncture Site ABG pH ABG pCO2 ABG pO2 ABG PO2/FiO2 Ratio ABG HCO3 ABG O2 Saturation ABG O2 Content ABG Base Excess A-a Gradient Oxyhemoglobin Carboxyhemoglobin Methemoglobin Reduced Hemoglobin Total Hemoglobin O2 Delivery Device O2 Liters/Min Minute Volume Vent Rate Vent Mode FiO2 Tidal Volume PEEP Peak Inspir Pressure Pressure Support Sodium Potassium Chloride Carbon Dioxide Anion Gap BUN Creatinine Estim Creat Clear Calc Estimated GFR Glucose Calcium Phosphorus Magnesium Total Bilirubin AST ALT Alkaline Phosphatase Total Protein Albumin Phenytoin 6 L 6 L Valproic Acid 76.3 Free Valproic Acid Cancelled Total Valproic Acid Cancelled 03/07/25 03/07/25 00:09 05:17 WBC 3.6 L RBC 3.63 L Hgb 9.4 L Hct 30.6 L MCV 84.3 MCH 25.9 L MCHC 30.7 L RDW 17.6 H Plt Count 219 MPV 9.1 Puncture Site Right radial ABG pH 7.385 ABG pCO2 43.4 ABG pO2 101.7 H ABG PO2/FiO2 Ratio 2.91 ABG HCO3 25.4 ABG O2 Saturation 97.6 ABG O2 Content 14.5 L ABG Base Excess 0.2 A-a Gradient 97.4 Oxyhemoglobin 97.0 Carboxyhemoglobin 0.2 Methemoglobin 0.0 Reduced Hemoglobin 2.8 Total Hemoglobin 10.5 L O2 Delivery Device Ventilator O2 Liters/Min Not Reportable Minute Volume Not Reportable Vent Rate 15 Vent Mode Cmv FiO2 35 Tidal Volume 400 PEEP 5 Peak Inspir Pressure Not Reportable Pressure Support Not Reportable Sodium 138 Potassium 3.6 Chloride 107 Carbon Dioxide 24 Anion Gap 7 BUN 9 Creatinine 0.45 L Estim Creat Clear Calc 205 Estimated GFR > 60 Glucose 84 Calcium 8.7 Phosphorus 3.5 Magnesium 2.0 Total Bilirubin 0.1 L AST 25 ALT 14 Alkaline Phosphatase 79 Total Protein 6.3 Albumin 3.5 Phenytoin 9 L Valproic Acid Free Valproic Acid Total Valproic Acid Quality VTE Prophylaxis VTE prophylaxis: pharmacologic ordered
[2025-03-07] MEDS: PROPOFOL IV EMULSION 100 ML 23.44 MG IV CONT ×2 (09:08→12:56)
--- NOTE | 2025-03-07 10:24 | PCPTNOTE ---
Pt currently intubated/sedated - please reorder when pt is safe to participate in skilled therapy.
--- NOTE | 2025-03-07 11:51 | PC.NURSE ---
This patient was accepted at [facility]. The accepting provider is Dr. Sampson, the room is [id number], and the phone number to provide report is
--- NOTE | 2025-03-07 12:09 | PC.NURSE ---
This RN gave report to [place]'s [facility]
--- NOTE | 2025-03-07 12:41 | PM.TDS ---
Transfer Discharge Sum: Prov Provider Date of admission: 02/25/25 09:37 Primary care physician: Tomasz Elizabeth APRN Admitting clinician: Quin Burden DO Consults: 02/24/25 Consult to Physician Routine Comment: Consulting Provider: Mehdi Victoria Reason for consultation: Breakthrough seizure Has provider been notified: Yes 02/24/25 21:49 Care Coordination Consult Routine Reason for Consult:: Acute Rehab Consult 03/07/25 Consult to Physician Routine Comment: Consulting Provider: Cecil Arroyo Reason for consultation: ICU transfer Has provider been notified: Yes DS: Admitting Diagnosis Discharge Date 03/07/2025 Admitting Diagnosis Seizure Transfer Discharge Sum: Med Medications Active and Home Medications: Home Medications albuterol sulfate 90 mcg/actuation aerosol inhaler 1 puff inhalation Q4H PRN shortness of breath or wheezing 02/24/25 [History Confirmed 02/24/25] apixaban 5 mg tablet (Eliquis) 5 mg PO Q12H 02/24/25 [History Confirmed 02/24/25] aripiprazole 2 mg tablet 2 mg PO DAILY 02/24/25 [History Confirmed 02/24/25] budesonide 160 mcg-glycopyr 9 mcg-formot 4.8 mcg/actuation HFA inhaler (Breztri Aerosphere) 2 inh inhalation .Q12HR 02/24/25 [History Confirmed 02/24/25] clonazepam 0.5 mg tablet 0.5 mg PO PRN PRN panic attack(s) 02/24/25 [History Confirmed 02/24/25] cyclobenzaprine 10 mg tablet 10 mg PO Q8H PRN muscle spasm 02/24/25 [History Confirmed 02/24/25] divalproex 125 mg capsule,delayed release sprinkle 125 mg PO TID 02/24/25 [History Confirmed 02/24/25] divalproex 500 mg tablet,delayed release 500 mg PO Q12H 02/24/25 [History Confirmed 02/24/25] levetiracetam 500 mg tablet 500 mg PO DAILY 02/24/25 [History Confirmed 02/24/25] levothyroxine 50 mcg tablet 50 mcg PO DAILY 02/24/25 [History Confirmed 02/24/25] losartan 50 mg tablet 50 mg PO DAILY 02/24/25 [History Confirmed 02/24/25] ondansetron 4 mg disintegrating tablet 4 mg PO Q4H PRN nausea and vomiting 02/24/25 [History Confirmed 02/24/25] quetiapine 50 mg tablet 50 mg PO HS 02/24/25 [History Confirmed 02/24/25] sertraline 100 mg tablet 100 mg PO DAILY 02/24/25 [History Confirmed 02/24/25] Active Medications Acetaminophen (Acetaminophen 500 Mg Tablet) 1,000 mg PO Q6H PRN PRN Reason: Mild Pain (1-3) or Fever Last Admin: 03/06/25 21:29 Dose: 1,000 mg Alteplase, Recombinant (Alteplase 2 Mg Vial (Cathflo)) 2 mg IV PUSH ONCE PRN PRN Reason: Line Occlusion Last Admin: 03/01/25 19:01 Dose: 2 mg Apixaban (Apixaban 5 Mg Tablet) 5 mg PO Q12HR [facility] Last Admin: 03/07/25 08:17 Dose: 5 mg Artificial Tears (Artificial Tears Ophth Soln 15 Ml Bottle) 1 drop EACH EYE QID PRN PRN Reason: Dry Eye(s) Last Admin: 03/05/25 19:44 Dose: 1 drop Clonazepam (Clonazepam (*Crx) 0.5 Mg Tablet) 0.5 mg PO PRN PRN PRN Reason: panic attack(s) Folic Acid (Folic Acid 1 Mg/0.2 Ml Inj) 1 mg IV PUSH QAM [facility] Last Admin: 03/07/25 08:18 Dose: 1 mg Valproate Sodium 1,250 mg/ (Dextrose) 62.5 mls @ 50 mls/hr IVPB Q6HR [facility] Last Infusion: 03/07/25 07:29 Dose: Infused Levetiracetam 1,250 mg/ Sodium (Chloride) 112.5 mls @ 450 mls/hr IVPB Q6H [facility] Last Infusion: 03/07/25 06:29 Dose: Infused Propofol (Diprivan) 100 mls @ 23.436 mls/hr IV CONT .Q4H17M [facility]; Protocol Last Admin: 03/07/25 09:08 Dose: 30 mcg/kg/min, 23.44 mls/hr Midazolam HCl (Versed 100 Mg/Ns 100 Ml) 100 mg in 100 mls @ 0 mls/hr IV CONT .Q0M [facility]; Protocol Last Titration: 03/07/25 06:00 Dose: 0 mg/hr, 0 mls/hr Levothyroxine Sodium (Levothyroxine Sodium 50 Mcg Tablet) 50 mcg PO DAILY@0630 [facility] Last Admin: 03/07/25 06:15 Dose: 50 mcg Loperamide HCl (Loperamide Hcl 2 Mg Capsule) 2 mg PO PRN PRN PRN Reason: Diarrhea Lorazepam (Lorazepam Inj (*Crx) 2 Mg/Ml Vial) 3 mg IV PUSH Q2H PRN PRN Reason: seizures Last Admin: 03/06/25 22:49 Dose: 3 mg Melatonin (Melatonin 5 Mg Tablet) 5 mg PO HS PRN PRN Reason: sleep Multivitamins/Calcium (Therapeutic Multivitamins/Minerals Tab (*Bkc)) 1 tablet PO DAILY [facility] Last Admin: 03/07/25 08:17 Dose: 1 tablet Ondansetron HCl (Ondansetron Inj 4 Mg/2 Ml Vial) 4 mg IV PUSH Q6H PRN PRN Reason: Nausea And Vomiting Last Admin: 03/06/25 07:51 Dose: 4 mg Pantoprazole Sodium (Pantoprazole Sodium Iv 40 Mg Vial) 40 mg IV PUSH Q12HR [facility] Last Admin: 03/07/25 08:18 Dose: 40 mg Phenytoin Sodium (Phenytoin Sodium Inj 100 Mg/2 Ml Vial (*Bkc)) 200 mg IV PUSH Q8HR [facility] Polyethylene Glycol (Polyethylene Glycol 3350 17 Gm Powd.Pack) 17 gm PO QAM [facility] Last Admin: 03/07/25 08:18 Dose: 17 gm Quetiapine Fumarate (Quetiapine Fumarate 25 Mg Tablet) 50 mg PO HS [facility] Last Admin: 03/06/25 22:44 Dose: Not Given Senna/Docusate Sodium (Senna/Docusate Sodium Tablet) [address] [facility] Last Admin: 03/06/25 21:00 Dose: Not Given Sertraline HCl (Sertraline Hcl 50 Mg Tablet) 100 mg PO DAILY [facility] Last Admin: 03/06/25 11:52 Dose: 100 mg Sodium Chloride (Central Line Flush) 10 ml IV PUSH Q8HR [facility] Last Admin: 03/07/25 06:14 Dose: 10 ml Sodium Chloride (Central Line Flush) 20 ml IV PUSH PRN PRN PRN Reason: after blood draws Thiamine HCl (Thiamine Hcl 200 Mg/2 Ml Vial) 100 mg IV PUSH QAM [facility] Last Admin: 03/07/25 08:18 Dose: 100 mg Transfer Discharge Sum: Hosp Hospital Course Hospital course: Preethi Napier is a 29 year old female 29-year-old female with a past medical history of morbid obesity status post gastric sleeve followed by revision to gastric bypass with recurrent obesity, chronic alcohol abuse, IV drug abuse including opiates, edible THC, traumatic brain injury, seizure disorder, history of pseudoseizures anxiety and depression who presented to the ER after police found the patient having seizures in her car. By the time EMS arrived at the patient's vehicle the patient was no longer seizing but once they loaded her into the ambulance she did have 8 seizure. She had IM Versed administered because they had difficulty time obtaining IV access. The patient had a fall 2 days ago and had evidence of ecchymosis around her left eye. She went to [place] at that time and had a CT which was reportedly negative. At the time of that fall she did have some bleeding from her nose in her left ear. She drinks a handle of fire ball a night. She has drink heavily for about 8 years with extremely heavy alcohol use over the last 2 years. She had denied any drug use to the ER staff but had told me that she was taking a synthetic drug is similar to heroin. She reports she has not used marijuana gummies in about 2 weeks. The patient denies any preceding symptoms instigating her seizure. She reports that she has been compliant with her seizure medications and has not missed any. Her last drink of alcohol was on the morning of the . She did state that she has been having nausea vomiting for 3 or 4 days and has not been able to tolerate any food. She denies any hematochezia or melena. She has been having watery stools multiple times a day. She reports that her stools have been yellow to green in color and are straight water. She denies recent antibiotic use. She denies fevers or chills. She reports that is not unusual for her to have watery stools when she is drinking heavily. She denies any chest pain or shortness of breath. He denies any headache beyond what would be expected given her fall and head trauma from a few days ago. In the IMU patient initially had a seizure lasting for approximately 24 minutes patient was intubated as she was given multiple doses of IV Versed, IV Ativan diazepam started on propofol. Neurology was consulted. Patient was given 1 dose of phenobarbital to 60 mg IV x1. 08/13/2026 patient self-extubated however was needed to be intubated for airway protection. EEG obtained in the hospital was normal on 02/26. Repeat EEG on 03/04 with abnormal due to presence of bihemispheric theta and delta activity however without any evidence of paroxysmal spikes. Slow-wave discharges throughout the tracing. Possibility of postictal state was noted. Patient extubated on 03/04/2025. However on 03/06/2025 due to recurrent seizures patient required re-intubation. Patient was treated with Keppra 1000 mg q.6 hours valproic acid 1250 mg every 8 hours phenytoin 225 mg IV Q 8 hours History of chronic alcoholism History of PE in 2023 on Eliquis Anxiety disorder Depression History of illicit drug use with synthetic heroin opiates cannabinoids in the past UTI culture came back with ESBL E coli sensitive only to carbapenems and a minor glyco side. Due to seizures carbapenems was not ordered and was placed on gentamicin DVT prophylaxis Eliquis Code status full code Due to recurrent seizures she will need continuous EEG and MRI and Neurology evaluation and hence see was discussed with critical care at [facility] with Neurology and was transferred there for further treatment. Patient Condition: Critical Time Spent with Patient Time attestation: Total time spent providing and/or coordinating transfer services: 45 minutes Exam Narrative: General: Sedated intubated and in no acute distress HEENT:? Pupils equal and reactive, sclera is clear, Neck:? Supple Respiratory:? Clear to auscultation bilaterally, no wheezing, adequate air entry breath sounds are decreased at bases Cardiac:? S1-S2 is normal, reviewed return room Abdomen:? Soft, nontender, nondistended, hypoactive bowel sounds, obese Extremities:? Trace edema bilaterally, palpable pedal pulses Neuro:? Sedated intubated PERRL Skin:? No lesions noted Psych:? Unable to assess at this time DS: Data Data Completed and Pending Labs on day of discharge: Labs from last 24 hours 03/07/25 03/07/25 03/06/25 05:17 00:09 19:33 WBC 3.6 L RBC 3.63 L Hgb 9.4 L Hct 30.6 L MCV 84.3 MCH 25.9 L MCHC 30.7 L RDW 17.6 H Plt Count 219 MPV 9.1 Puncture Site Right radial ABG pH 7.385 ABG pCO2 43.4 ABG pO2 101.7 H ABG PO2/FiO2 Ratio 2.91 ABG HCO3 25.4 ABG O2 Saturation 97.6 ABG O2 Content 14.5 L ABG Base Excess 0.2 A-a Gradient 97.4 Oxyhemoglobin 97.0 Carboxyhemoglobin 0.2 Methemoglobin 0.0 Reduced Hemoglobin 2.8 Total Hemoglobin 10.5 L O2 Delivery Device Ventilator O2 Liters/Min Not Reportable Minute Volume Not Reportable Vent Rate 15 Vent Mode Cmv FiO2 35 Tidal Volume 400 PEEP 5 Peak Inspir Pressure Not Reportable Pressure Support Not Reportable Sodium 138 Potassium 3.6 Chloride 107 Carbon Dioxide 24 Anion Gap 7 BUN 9 Creatinine 0.45 L Estim Creat Clear Calc 205 Estimated GFR > 60 Glucose 84 Calcium 8.7 Phosphorus 3.5 Magnesium 2.0 Total Bilirubin 0.1 L AST 25 ALT 14 Alkaline Phosphatase 79 Total Protein 6.3 Albumin 3.5 Phenytoin 9 L 6 L Valproic Acid Free Valproic Acid Cancelled Total Valproic Acid Cancelled 03/06/25 19:31 WBC RBC Hgb Hct MCV MCH MCHC RDW Plt Count MPV Puncture Site ABG pH ABG pCO2 ABG pO2 ABG PO2/FiO2 Ratio ABG HCO3 ABG O2 Saturation ABG O2 Content ABG Base Excess A-a Gradient Oxyhemoglobin Carboxyhemoglobin Methemoglobin Reduced Hemoglobin Total Hemoglobin O2 Delivery Device O2 Liters/Min Minute Volume Vent Rate Vent Mode FiO2 Tidal Volume PEEP Peak Inspir Pressure Pressure Support Sodium Potassium Chloride Carbon Dioxide Anion Gap BUN Creatinine Estim Creat Clear Calc Estimated GFR Glucose Calcium Phosphorus Magnesium Total Bilirubin AST ALT Alkaline Phosphatase Total Protein Albumin Phenytoin Valproic Acid 76.3 Free Valproic Acid Total Valproic Acid Imaging Radiologist's impression: ITS Impressions Head CT 02/24/25 19:31 IMPRESSION: No acute intracranial process. Chest X-Ray 02/24/25 22:05 IMPRESSION: No acute cardiopulmonary process. Chest X-Ray 02/25/25 07:03 Impression: 1: Mild interstitial edema. Chest X-Ray 02/26/25 05:48 Impression: 1: Stable mild edema. Chest X-Ray 02/27/25 06:57 Impression: 1: Right upper and lower lobe consolidation which may reflect atelectasis and/or pneumonia. 2: Cardiomegaly. Chest X-Ray 02/28/25 06:01 Impression: 1: Stable chest. No significant interval change. Head CT 02/28/25 14:57 IMPRESSION: 1. Persistent small left frontal scalp hematoma. No fracture or acute intracranial process. Chest X-Ray 03/01/25 06:35 IMPRESSION: Right middle and lower lobe infiltrate. Supportive lines and tubes in good position. Chest X-Ray 03/02/25 06:54 IMPRESSION: Small right-sided pleural effusion, nonvisualization of the left costophrenic sulcus. Mild pulmonary vascular congestion without focal infiltrate. Supportive lines and tubes in good position. Chest X-Ray 03/03/25 07:15 Impression: 1: Interval progression of pulmonary edema. Chest X-Ray 03/04/25 06:34 Impression: 1: Bilateral predominantly basilar airspace disease which is not significantly changed dating back to 03/01/2025. Differential diagnosis includes edema, pneumonia and/or atelectasis. Abdomen/Pelvis CT 03/05/25 11:06 IMPRESSION: Postoperative change within the upper abdomen. Air-fluid levels identified within the colon, without mural thickening or surrounding inflammatory change. No significant colonic dilatation is appreciated. Small left-sided pleural effusion with adjacent consolidation, consistent with patient's history. Interval development of hepatomegaly since previous examination performed in 2019. Chest X-Ray 03/07/25 06:09 IMPRESSION: Improved aeration of the bilateral lung gibson when compared with previous days examination. Supportive lines and tubes in good position. Abdomen X-Ray 03/07/25 07:38 IMPRESSION: 1: OG tube tip in the stomach. Chest X-Ray 03/07/25 07:39 Impression: 1: Focal infiltrates left lung base which may represent atelectasis or pneumonia.
--- NOTE | 2025-03-07 13:18 | PC.NURSE ---
This RN spoke with pt's father, Harry Blas, to inform him of pt's transfer to [facility].
--- NOTE | 2025-03-07 14:46 | PCDIET ---
Diet order: Vital AF 1.2 goal is 50 ml/hr. Flush 30 ml q 4 hours. Patient was reintubated 03/06. Plans for transfer to [facility].
== END 2025-03-07 14:25 | disposition short-term general hospital (02) | DRG 100 ==
LOC: ANHED 18:19 → ANHIMU 22:33 → ANHICU 02-25 06:27
PROVIDERS: Emergency Medicine; Family Medicine; Internal Medicine; Psychiatry & Neurology Neurology; Admitting Provider Internal Medicine; Emergency Provider Emergency Medicine; PCP Nurse Practitioner Family; Visit Provider Internal Medicine
DX: G40.901 Epilepsy, unspecified, not intractable, with status epilepticus (principal); J96.01 Acute respiratory failure with hypoxia; Z68.43 Body mass index [BMI] 50.0-59.9, adult; F10.930 Alcohol use, unspecified with withdrawal, uncomplicated; E87.20 Acidosis, unspecified; N39.0 Urinary tract infection, site not specified; Z16.12 Extended spectrum beta lactamase (ESBL) resistance; B96.20 Unspecified Escherichia coli [E. coli] as the cause of diseases classified elsewhere; E66.01 Morbid (severe) obesity due to excess calories; E03.9 Hypothyroidism, unspecified; F11.10 Opioid abuse, uncomplicated; F12.90 Cannabis use, unspecified, uncomplicated; F41.9 Anxiety disorder, unspecified; F32.A Depression, unspecified; F43.10 Post-traumatic stress disorder, unspecified; F17.210 Nicotine dependence, cigarettes, uncomplicated; F19.90 Other psychoactive substance use, unspecified, uncomplicated; I10 Essential (primary) hypertension; S00.12XD Contusion of left eyelid and periocular area, subsequent encounter; W19.XXXD Unspecified fall, subsequent encounter; R11.2 Nausea with vomiting, unspecified; R19.7 Diarrhea, unspecified; Z91.148 Patient's other noncompliance with medication regimen for other reason; Z98.84 Bariatric surgery status; Z87.820 Personal history of traumatic brain injury; Z79.01 Long term (current) use of anticoagulants; Z86.711 Personal history of pulmonary embolism
CPT/HCPCS: 31500; 36415; 36600; 70450; 71045; 74176; 80053; 80164; 80175; 80177; 80185; 80307; 81001; 81025; 82077; 82140; 82375; 82805; 82948; 83050; 83605; 83690; 83735; 84100; 84478; 85018; 85025; 85027; 85610; 85730; 87040; 87086; 92950; 93005; 94002; 94003; 94640; 95816; 95819; 96361; 96365; 96372; 96375; 96376; 99285; A9270; C1751; G0378; J0330; J0696; J1165; J1580; J1885; J1953; J2060; J2250; J2405; J2470; J2550; J2560; J2704; J2997; J3360; J3411; J3475; J3480; J7030; J7120